=== PATIENT | female | born 1940 | race Caucasian/White ===

== ENCOUNTER → 2017-11-30 15:47 | Outpatient (CLI) | payer MEDICARE, SELFPAY ==
--- NOTE | 2017-11-30 15:52 | RAD_ITS ---
STUDY: X-RAY - RIGHT ELBOW REASON FOR EXAM: Female, 77 years old. Reevaluation of right elbow fracture. TECHNIQUE: 4 view(s) of the elbow. COMPARISON: Prior right elbow radiograph of October 23, 2014 FINDINGS: Hypertrophic degenerative changes of the humeral epicondyles unchanged from the prior exam. Hypertrophic degenerative changes of the ulna/mild degenerative changes of the ulnar ulnotrochlear articulation and radiocapitellar articulation. The appearance of the radial head and neck is unchanged. There is overhanging osteophyte at the junction of the radial head and neck appearing unchanged from the preceding exam. I am not convinced the patient has ever had a compression fracture or any fracture of the proximal radius. Negative for hemarthrosis. RAD/Elbow min 3 Views IMPRESSION: Degenerative changes of the elbow as described above. No certain demonstrated fracture of the radius. Overhanging osteophyte at the junction of the radial head and neck resembles a compression deformity. If there is an occult fracture of the area it apparently is healing with no change in alignment. Negative for joint effusion. Electronically Signed: Sho Coughlin MD at 22:46 EST , Service support ,
== END ==
PROVIDERS: Family Provider Family Medicine; PCP Family Medicine; Visit Provider Family Medicine
DX: S42.401A Unspecified fracture of lower end of right humerus, initial encounter for closed fracture (principal); X58.XXXA Exposure to other specified factors, initial encounter; Y93.9 Activity, unspecified; Y92.9 Unspecified place or not applicable; Y99.9 Unspecified external cause status
CPT/HCPCS: 73080

== ENCOUNTER → 2018-02-18 15:42 | Outpatient (CLI) | payer MEDICARE, BC, SELFPAY ==
[2018-02-18 16:26] LABS: Allen Test POS; Base Excess 1 mmol/L (-2 to +2); Bicarbonate 25.8 mmol/L (22-26); Blood Gas Specimen Type ART; O2 Delivery Device Room Air; PO2 61 mmHG (75-100); SITE R Radial; SO2 91 % (95-99); Time Given 1625; Total Carbon Dioxide 27 mmol/L; pCO2 41.8 mmHg (35-45)
== END ==
LOC: LAB 15:57 → PSN 15:58
PROVIDERS: Family Provider Family Medicine; PCP Family Medicine; Visit Provider Internal Medicine Pulmonary Disease
DX: J96.90 Respiratory failure, unspecified, unspecified whether with hypoxia or hypercapnia (principal)
CPT/HCPCS: 36600; 82803

== ENCOUNTER → 2018-04-18 11:28 | Outpatient (CLI) | payer MEDICARE, BC, SELFPAY ==
[2018-04-18 14:44] LABS: Anion Gap 6 (5-15); BUN 30 mg/dL (7-18); BUN/Creat Ratio 24.6 RATIO (10-20); Calcium,Total 9.2 mg/dL (8.5-10.1); Chloride 104 mmol/L (98-107); Creatinine, Serum 1.22 mg/dL (0.55-1.02); EST Glomerular Filtration Rate 45 mL/min (>60); Est Glom Filt Rate - Afr Amer 55 mL/min (>60); Glucose 96 mg/dL (74-106); Potassium 4.8 mmol/L (3.5-5.1); Sodium Level 139 mmol/L (136-145)
== END ==
PROVIDERS: Family Provider Family Medicine; PCP Family Medicine; Visit Provider Nurse Practitioner Adult Health
DX: I10 Essential (primary) hypertension (principal)
CPT/HCPCS: 36415; 80048

== ENCOUNTER → 2018-04-20 08:37 | Outpatient (CLI) | payer MEDICARE, BC, SELFPAY ==
--- NOTE | 2018-04-20 08:39 | BI_ITS ---
MAMMOGRAPHY - BILATERAL SCREENING REASON FOR EXAM: Female, 78 years old. Routine annual screening examination. PERTINENT HISTORY: Aunt with breast cancer. TECHNIQUE: Digital bilateral breast olimpia (3D mammographic acquisition) in the CC and MLO projections. 2-D mediolateral oblique (MLO) and craniocaudad (CC) views of both breasts were obtained. CAD: Full Field Digital Mammography with Computer Added Detection was performed. COMPARISON: Comparison is made with prior study dated March 05, 2017 and February 14, 2016. FINDINGS: Breast Composition: There are scattered areas of fibroglandular density. There are no dominant masses or suspicious calcifications. No other significant abnormalities are identified. There has been no significant change since the prior study. BI/SCREENING MAMM (CAD), BILAT IMPRESSION: Stable bilateral screening mammogram. Yearly follow-up mammogram recommended. (A) ASSESSMENT CATEGORY: BIRADS Category 1: Negative. A letter regarding these results will be sent to the patient by the facility within 30 days. Approximately 10% of breast cancers are not detected by mammography. A normal mammogram should not delay biopsy of a clinically suspicious abnormality. [id number] Electronically Signed: Dionisio Mora MD at 15:34 EDT Tel [phone], Service support ,
== END ==
PROVIDERS: Family Provider Family Medicine; PCP Family Medicine; Visit Provider Nurse Practitioner Adult Health
DX: Z12.31 Encounter for screening mammogram for malignant neoplasm of breast (principal)
CPT/HCPCS: 77063; 77067

== ENCOUNTER → 2018-07-03 09:59 | Outpatient (CLI) | payer MEDICARE, BC, SELFPAY ==
[2018-07-03 12:47] LABS: Anion Gap 7 (5-15); BUN 26 mg/dL (7-18); BUN/Creat Ratio 20.6 RATIO (10-20); Calcium,Total 9.2 mg/dL (8.5-10.1); Chloride 104 mmol/L (98-107); Cholesterol 146 mg/dL (200); Creatinine, Serum 1.26 mg/dL (0.55-1.02); EST Glomerular Filtration Rate 44 mL/min (>60); Est Glom Filt Rate - Afr Amer 53 mL/min (>60); Glucose 92 mg/dL (74-106); High Density Lipoprotein 50 mg/dL; Potassium 4.4 mmol/L (3.5-5.1); Sodium Level 137 mmol/L (136-145); Thyroid Stim Hormone (TSH) 4.34 uIU/mL (0.358-3.74); Triglycerides 112 mg/dL; Very Low Density Lipoprotein 22 mg/dL (5-40)
[2018-07-03 12:55] LABS: Vitamin D,25 Hydroxy 21.3 ng/mL (29.95-100.01)
== END ==
PROVIDERS: Family Provider Family Medicine; PCP Family Medicine; Visit Provider Family Medicine
DX: Z00.00 Encounter for general adult medical examination without abnormal findings (principal); E03.9 Hypothyroidism, unspecified; E55.9 Vitamin D deficiency, unspecified
CPT/HCPCS: 36415; 80048; 80061; 82306; 84443

== ENCOUNTER → 2018-07-24 10:48 | Outpatient (CLI) | payer MEDICARE, BC, SELFPAY ==
--- NOTE | 2018-07-24 10:53 | RAD_ITS ---
STUDY: X-RAY - LEFT WRIST REASON FOR EXAM: Female, 78 years old. Left wrist pain up and down elbow, anterior wrist bruising. TECHNIQUE: 3 view(s) of the wrist were obtained. COMPARISON: 10/26/2017. Fall/trauma . FINDINGS: Normal visualized distal radius and ulna. Normal radiocarpal articulation. Normal distal radioulnar articulation. Normal carpal bones. Normal carpal articulations. There is degenerative arthrosis of the carpometacarpal articulation of the thumb. Normal second through fifth carpometacarpal articulations. Normal visualized metacarpal bones. The soft tissue structures are unremarkable. RAD/Wrist min 3 Views IMPRESSION: Stable degenerative changes. There is no acute displaced fracture or dislocation. Electronically Signed: Latrice Petty MD at 7:26 EDT , Service support ,
== END ==
PROVIDERS: Family Provider Family Medicine; PCP Family Medicine; Visit Provider Family Medicine
DX: M79.602 Pain in left arm (principal)
CPT/HCPCS: 73110

== ENCOUNTER → 2018-09-11 14:35 | Outpatient (CLI) | payer MEDICARE, BC, SELFPAY ==
--- NOTE | 2018-09-11 14:39 | ECHOCS_ITS ---
Reason For Study: Dyspnea, Hypoxemia Procedure This was a 2D Doppler, Color Flow transthoracic echocardiogram. The study was technically difficult. Contrast injection was performed. Exam performed in department. Left Ventricle Normal LV size. Left ventricular systolic function is normal. The estimated ejection fraction is 65 %. Stage 1 diastolic dysfunction. No regional wall motion abnormalities noted. Right Ventricle Normal RV size. Normal systolic function. Atria Normal left atrium. Mitral Valve Normal mitral valve. Tricuspid Valve Normal tricuspid valve. Mild (1+) tricuspid valve insufficiency. Pulmonary artery systolic pressure is 38 mmHg. Aortic Valve The aortic valve is not well visualized. Pulmonic Valve The pulmonic valve is not well visualized. Great Vessels Normal aortic root. The pulmonary artery is normal size. Normal inferior vena cava. Pericardium/Pleural No pericardial effusion. Medication Definity0.5ml given slow IV push to enhance endocardial definition. MMode/2D Measurements & Calculations LVIDd: 5.1 cm IVSd: 1.1 cm Ao root diam: 3.4 cm LVIDs: 3.7 cm LVPWd: 0.96 cm RVDd: 3.4 cm FS: 28.3 % LAV(MOD-bp): 55.5 ml LVAd ap4: 27.9 cm2 SV(MOD-sp4): 61.7 ml LAV(MOD-bp) Indexed: 23.6 ml/m2 EDV(MOD-sp4): 88.4 ml LAV(MOD-sp2): 61.8 ml EDV(sp4-el): 90.2 ml LAV(MOD-sp4): 50.3 ml LVAs ap4: 13.3 cm2 ESV(MOD-sp4): 26.7 ml ESV(sp4-el): 26.6 ml EF(MOD-sp4): 69.8 % EF(sp4-el): 70.5 % SV(sp4-el): 63.6 ml LA A4 area: 19.6 cm2 LA dimension(2D): 4.2 cm RA A4 area: 14.7 cm2 Doppler Measurements & Calculations MV E max mayank: 91.0 cm/sec Lat Peak E' Mayank: 7.9 cm/sec Med Peak E' Mayank: 5.1 cm/sec MV A max mayank: 106.3 cm/sec E/E' lat: 11.5 E/E' med: 17.8 MV E/A: 0.86 Ao V2 max: 169.8 cm/sec LV V1 max: 113.6 cm/sec PA V2 max: 94.2 cm/sec Ao max P.5 mmHg LV V1 max P.2 mmHg Ao V2 mean: 121.0 cm/sec Ao mean P.4 mmHg Ao V2 VTI: 35.6 cm TR max mayank: 290.0 cm/sec TR max P.6 mmHg Interpretation Summary Normal LV size. Left ventricular systolic function is normal. The estimated ejection fraction is 65 %. Stage 1 diastolic dysfunction. Mild (1+) tricuspid valve insufficiency. Pulmonary artery systolic pressure is 38 mmHg. Contrast injection was performed. Ordering Physician: Filiberto Orellana Referring Physician: Jovani Mcconnell Performed By: Khadra Scales, NIYAH, RVT
--- NOTE | 2018-09-11 16:01 | RAD_ITS ---
STUDY: X-RAY CHEST REASON FOR EXAM: Female, 78 years old. Hypoxemia and dyspnea. TECHNIQUE: PA and lateral views of the chest. COMPARISON: October 31, 2017. FINDINGS: The lungs are expanded. There is mild elevation of the right hemidiaphragm. There is perihilar interstitial thickening present in both lungs. Curvilinear opacity is visible in the left lung, similar to previous study probably related to pulmonary fibrosis. There is no demonstrated pleural abnormality. There is borderline cardiomegaly. Normal mediastinum and antwon. There is prominence of the pulmonary hilar arteries without peripheral pulmonary vascular congestion. There is atherosclerotic calcification of the aortic arch with tortuosity. There is demineralization of the osseous structures. There is increased thoracic kyphosis. There is multilevel thoracic spondylosis. Normal visualized ribs, clavicles, and shoulders. There is no demonstrated abnormality of the visualized soft tissue structures of the upper abdomen. RAD/Chest PA and Lateral IMPRESSION: No radiographic evidence of acute cardiopulmonary disease. Electronically Signed: Radha Rivero MD at 7:35 EST , Service support ,
[2018-09-11 18:01] LABS: BNP,B-Type NATRIURETIC PEPTIDE 76.3 pg/mL (0-100)
== END ==
PROVIDERS: Family Provider Family Medicine; PCP Family Medicine; Referring Provider Internal Medicine Pulmonary Disease; Visit Provider Internal Medicine Pulmonary Disease
DX: R06.00 Dyspnea, unspecified (principal); R09.02 Hypoxemia
CPT/HCPCS: 36415; 71046; 83880; 93306; Q9957; A4216; C8929

== ENCOUNTER 2018-12-13 12:59 | Emergency (ER) | payer MEDICARE, BC, SELFPAY ==
[2018-12-13 13:07] VITALS: BP 136/62; PULSE 97; RESP 16; TEMP 36.7; O2SAT 94; BMI 55.6
--- NOTE | 2018-12-13 13:32 | RAD_ITS ---
STUDY: X-RAY - LEFT KNEE REASON FOR EXAM: Female, 78 years old. Bruising and swelling following a fall. TECHNIQUE: 4 view(s) of the knee. COMPARISON: None. FINDINGS: The patient is status post total knee replacement. There is good alignment. No acute fracture or dislocation is seen. Moderate joint effusion. Diffuse soft tissue swelling. RAD/Knee 4 or More Views IMPRESSION: Status post total knee replacement. There is good alignment. Soft tissue swelling. Joint effusion. Electronically Signed: Dionisio Mora MD at 14:05 EST , Service support ,
--- NOTE | 2018-12-13 14:49 | ED.VISSUMM ---
- ER Visit Summary Date of Service: 12/13/18 Chief Complaint: Left knee injury History of Present Illness: The patient is a 78 F who slipped and fell in the shower striking the medial portion of her left knee. She denies striking her head. Patient is currently on Coumadin. Her INR was checked on December 10 and was 2.3. She states she was able to ambulate but due to the size of the bruising and swelling felt she should be checked. Physical Examination: Vital signs unremarkable. Patient sitting upright in bed no acute distress. Head neck examination reveals no sign of trauma. Heart is regular rate and rhythm. Lungs sounds clear. Lower extremity examination reveals ecchymosis and tenderness along the medial portion of left knee. She has slow, purposeful range of motion. She has strong distal pulses. Test Results: Left knee x-rays reveal prior knee replacement. Normal alignment noted. Soft tissue swelling is appreciated with a slight joint effusion. Emergency Department Course and Treatment: Deyvi wrap was applied to the knee. Patient is able to get up and ambulate with walker. She wishes to just take Tylenol as needed for pain. Treatment Plan: [] Disposition: Discharge Impression: Left knee contusion This note was generated with [employer] dictation software. It may contain incorrect words, spelling, and punctuation that were not noted in review of the chart prior to signing ED Disposition - Plan for ED Patient: Disposition: Home or Assisted Living Instructions: ED Contusion Lower Ext, ED Mechanical Fall Referrals: Jovani Mcconnell MD [Primary Care Provider] - 5-7 Days
--- NOTE | 2018-12-13 14:49 | ED.DEP ---
ED Disposition - Plan for ED Patient: Disposition: Home or Assisted Living Instructions: ED Mechanical Fall, ED Contusion Lower Ext Referrals: Jovani Mcconnell MD [Primary Care Provider] - 5-7 Days
[2018-12-13 14:54] VITALS: BP 135/84; PULSE 73; RESP 16; O2SAT 93
== END 2018-12-13 15:29 | disposition home or self-care (01) ==
PROVIDERS: Emergency Provider Emergency Medicine; Family Provider Family Medicine; PCP Family Medicine
DX: S80.02XA Contusion of left knee, initial encounter (principal); W18.2XXA Fall in (into) shower or empty bathtub, initial encounter; Y93.E1 Activity, personal bathing and showering; Y92.9 Unspecified place or not applicable; Y99.9 Unspecified external cause status; E11.9 Type 2 diabetes mellitus without complications; I10 Essential (primary) hypertension; F41.9 Anxiety disorder, unspecified; Z79.01 Long term (current) use of anticoagulants; Z79.899 Other long term (current) drug therapy; Z86.718 Personal history of other venous thrombosis and embolism; Z86.711 Personal history of pulmonary embolism; Z87.891 Personal history of nicotine dependence
CPT/HCPCS: 73564; 99284

== ENCOUNTER → 2018-12-26 14:54 | Outpatient (CLI) | payer MEDICARE, BC, SELFPAY ==
[2018-12-13 13:07] VITALS: BMI 55.6
[2018-12-26 16:09] LABS: Anion Gap 8 (5-15); BUN 35 mg/dL (7-18); BUN/Creat Ratio 26.7 RATIO (10-20); Calcium,Total 9.6 mg/dL (8.5-10.1); Chloride 106 mmol/L (98-107); Cholesterol 131 mg/dL (200); Creatinine, Serum 1.31 mg/dL (0.55-1.02); EST Glomerular Filtration Rate 42 mL/min (>60); Est Glom Filt Rate - Afr Amer 50 mL/min (>60); Free T3 2.6 pg/mL (2.18-3.98); Glucose 88 mg/dL (74-106); High Density Lipoprotein 58 mg/dL; Potassium 4.6 mmol/L (3.5-5.1); Sodium Level 140 mmol/L (136-145); Thyroid Stim Hormone (TSH) 5.55 uIU/mL (0.358-3.74); Triglycerides 82 mg/dL; Very Low Density Lipoprotein 16 mg/dL (5-40)
== END ==
PROVIDERS: Family Provider Family Medicine; PCP Family Medicine; Referring Provider Family Medicine; Visit Provider Family Medicine
DX: I10 Essential (primary) hypertension (principal); E03.9 Hypothyroidism, unspecified; E55.9 Vitamin D deficiency, unspecified
CPT/HCPCS: 36415; 80048; 80061; 82306; 84436; 84443; 84481

== ENCOUNTER → 2019-04-07 09:38 | Outpatient (CLI) | payer MEDICARE, BC, SELFPAY ==
[2019-03-20 13:41] VITALS: BMI 53.4
[2019-04-07 10:04] LABS: Absolute Lymphocyte Count 1.32 X10^3/ul (0.83-4.51); Absolute Neutrophil Count 5.8 X10^3/uL (2.0-7.7); Basophil# 0.04 X10^3/uL; Basophil% 0.5 % (0-1); Eosinophil# 0.19 X10^3/uL; Eosinophils% 2.4 % (0-5); Hematocrit 43.6 % (37-47); Hemoglobin 13.5 g/dl (12.0-15.0); Lymphocyte # 1.32 X10^3/ul (4.0); Lymphocyte % 16.4 % (19-41); Mean Corpuscular Hgb 32.1 pg (27.0-32.0); Mean Corpuscular Volume 103.6 fL (81-99); Mean Platelet Vol. 9.1 fl (6.2-12.0); Monocyte# 0.65 X10^3/uL; Monocyte% 8.1 % (0-10); Neutrophil # 5.83 X10^3/uL (2.7-7.7); Neutrophil % 72.5 % (47-70); Platelet Count 164 K/mm3 (150-450); RBC Distribution Width CV 13.9 % (11.6-14.6); RBC Distribution Width SD 52.3 fl (35.1-43.9); Red Blood Count 4.21 M/mm3 (4.2-5.4)
[2019-04-07 10:08] LABS: POSITIVE COUNT NO; POSITIVE DIFFERENTIAL NO; POSITIVE MORPHOLOGY NO
[2019-04-07 10:10] LABS: International Normalized Ratio 2.7
[2019-04-07 10:11] LABS: Partial Thromboplast Time 34.8 Seconds (24.1-36.2)
[2019-04-07 10:24] LABS: Anion Gap 5 (5-15); BUN 56 mg/dL (7-18); BUN/Creat Ratio 30.1 RATIO (10-20); Calcium,Total 9.2 mg/dL (8.5-10.1); Chloride 101 mmol/L (98-107); Creatinine, Serum 1.86 mg/dL (0.55-1.02); EST Glomerular Filtration Rate 28 mL/min (>60); Est Glom Filt Rate - Afr Amer 34 mL/min (>60); Glucose 100 mg/dL (74-106); Sodium Level 136 mmol/L (136-145)
== END ==
PROVIDERS: Family Provider Family Medicine; PCP Family Medicine; Referring Provider Internal Medicine Cardiovascular Disease; Visit Provider Internal Medicine Cardiovascular Disease
DX: I10 Essential (primary) hypertension (principal); E78.5 Hyperlipidemia, unspecified; I26.99 Other pulmonary embolism without acute cor pulmonale; I27.21 Secondary pulmonary arterial hypertension
CPT/HCPCS: 36415; 80048; 85025; 85610; 85730

== ENCOUNTER 2019-04-11 07:47 | Day surgery (SDC) | payer MEDICARE, BC, SELFPAY ==
[2019-03-20 13:41] VITALS: BMI 53.4
--- NOTE | 2019-04-07 10:10 | RAD_ITS ---
STUDY: X-RAY CHEST REASON FOR EXAM: Female, 79 years old. Shortness of breath TECHNIQUE: PA and lateral views of the chest. COMPARISON: 09/11/2018 FINDINGS: The lungs are clear and expanded. There is no demonstrated pleural abnormality. Normal size heart. Normal mediastinum and antwon. Normal visualized pulmonary arteries. Normal visualized aortic arch and descending thoracic aorta. There are diffuse degenerative changes of the visualized thoracic spine. There is degenerative osteoarthritis of the bilateral shoulders. There is no demonstrated abnormality of the visualized soft tissue structures of the upper abdomen. RAD/Chest PA and Lateral IMPRESSION: No acute cardiopulmonary disease Electronically Signed: Tan Castillo DO at 13:36 EDT Tel , Service support ,
[2019-04-09 08:49] VITALS: BMI 53.4
[2019-04-11 08:16] LABS: Prothrombin Time Fingerstick 18.4 SEC (11.9-14.4)
--- NOTE | 2019-04-11 10:50 | CL.D_ITS ---
Patient Name: OPAL SHIPLEY Study Date: 04/11/2019 Performing: Maynor Roldan MD Ht: 62.99 inches 160 cm : 1940 Wt: 302.03 lbs 137 kg Age: 79 Gender: female BSA: 2.3 PROCEDURE(S) PERFORMED UL69-HBG ONLY [id number] GUIDED ACCESS CLINICAL PROFILE AND INDICATIONS Mild pulmonary hypertension Indications: Other, Other Heart Failure: None CONCLUSIONS Right heart pressures - mildly to moderately elevated RECOMMENDATIONS Medical therapy DESCRIPTION OF PROCEDURE The patient arrived to the procedure lab. The risks and benefits of the procedure as well as a full d escription of our services here and current unavailability of surgical backup were fully explained to the patient and/or their significant other prior to the catheterization. The Timeout was completed, verifying the correct patient and procedure. The patient's procedural site was prepped and draped in the usual fashion. Local anesthetic was given subcutaneously to right groin region with Lidocaine 2%. Local anesthetic was given subcutaneously to right jugular region with Lidocaine 2%. Using a modifie d Seldinger technique, Venous access was obtained via the right femoral vein, a 7Fr sheath was inser mica.. Venous access was obtained via the right jugular vein, a 4Fr sheath was inserted A 7Fr thermal dilution catheter was inserted and right heart pressures were recorded, it was then advanced to [place] po sition for cardiac outputs. O2 saturations were then obtained. The Thermal dilution catheter was then removed.The venous sheath was then pulled and manual compression applied until hemo stasis achieved (D/T IVC filter). The venous sheath was then pulled and manual compression applied un til hemostasis achieved CORONARY ANGIOGRAPHY RIGHT HEART ASSESSMENT PW: 10 PA: 42/12 28 RV: 40/3 9 RA: 14/7 5 Right Heart pressures - elevated COMPLICATIONS No Complications PROCEDURE MEDICATIONS Versed 1 mg IV Versed 1 mg IV Fentanyl 25 mcg IV SUMMARY OF HEMODYNAMIC DATA Time AIR REST ECG 09:00:23 PW 1615 (10) PV 10:34:46 PA 42/12 (28) PA 10:35:00 RV 40/3, 9 10:36:46 RV 43/1, 8 10:37:10 RA 14/7 (5) SV 10:38:25 RA 10/7 (5) 10:38:42 Label % O2 Pres/Loc Time AIR REST RV 69 PA 10:43:29 RA 70 10:46:33 PA 73 10:46:43 Signed By Maynor Roldan MD On 04/11/2019 10:49:11 AM Maynor Roldan MD
[2019-04-11 15:46] LABS: Blood Gas Specimen Type VEN; VBG BASE EXCESS -2 mmol/L (-1.0-3.5); VBG Bicarbonate 25 mmol/L (22-26); VBG Oxygen Content 26 mmol/L (23-33); VBG PO2 40 mmHg (25-40); VBG SO2 69 % (50-70); VBG pCO2 48.7 mmHg (41-51); VBG pH 7.31 (7.32-7.42)
[2019-04-11 15:46] LABS: Blood Gas Specimen Type VEN; VBG BASE EXCESS 0 mmol/L (-1.0-3.5); VBG Bicarbonate 26 mmol/L (22-26); VBG Oxygen Content 27 mmol/L (23-33); VBG PO2 42 mmHg (25-40); VBG SO2 73 % (50-70); VBG pCO2 48.5 mmHg (41-51); VBG pH 7.33 (7.32-7.42)
[2019-04-11 15:46] LABS: Blood Gas Specimen Type VEN; VBG BASE EXCESS -2 mmol/L (-1.0-3.5); VBG Bicarbonate 24 mmol/L (22-26); VBG Oxygen Content 26 mmol/L (23-33); VBG PO2 40 mmHg (25-40); VBG SO2 70 % (50-70); VBG pCO2 47.3 mmHg (41-51); VBG pH 7.32 (7.32-7.42)
== END 2019-04-11 13:30 | disposition home or self-care (01) ==
LOC: CLSP 07:48
PROVIDERS: Family Provider Family Medicine; PCP Family Medicine; Referring Provider Internal Medicine Cardiovascular Disease; Visit Provider Internal Medicine Cardiovascular Disease
DX: I27.20 Pulmonary hypertension, unspecified (principal); I26.99 Other pulmonary embolism without acute cor pulmonale; E11.22 Type 2 diabetes mellitus with diabetic chronic kidney disease; I12.9 Hypertensive chronic kidney disease with stage 1 through stage 4 chronic kidney disease, or unspecified chronic kidney disease; N18.9 Chronic kidney disease, unspecified; J44.9 Chronic obstructive pulmonary disease, unspecified; E78.5 Hyperlipidemia, unspecified; G47.33 Obstructive sleep apnea (adult) (pediatric); E66.01 Morbid (severe) obesity due to excess calories; Z79.01 Long term (current) use of anticoagulants; Z88.1 Allergy status to other antibiotic agents; Z88.0 Allergy status to penicillin; Z91.09 Other allergy status, other than to drugs and biological substances; Z86.718 Personal history of other venous thrombosis and embolism; Z87.891 Personal history of nicotine dependence
CPT/HCPCS: 36416; 71046; 76937; 82803; 85610; 93451; 99152; 99153; J7040; C1751; C1769; C1894

== ENCOUNTER → 2019-05-07 15:10 | Outpatient (CLI) | payer MEDICARE, BC, SELFPAY ==
[2019-04-09 08:49] VITALS: BMI 53.4
[2019-05-07 17:45] LABS: Absolute Lymphocyte Count 1.22 X10^3/ul (0.83-4.51); Absolute Neutrophil Count 6.5 X10^3/uL (2.0-7.7); Basophil# 0.04 X10^3/uL; Basophil% 0.5 % (0-1); Eosinophil# 0.07 X10^3/uL; Eosinophils% 0.8 % (0-5); Hematocrit 39.8 % (37-47); Hemoglobin 12.3 g/dl (12.0-15.0); Lymphocyte # 1.22 X10^3/ul (4.0); Lymphocyte % 14.6 % (19-41); Mean Corp Hgb Conc 30.9 g/gl (32-36); Mean Corpuscular Hgb 32.3 pg (27.0-32.0); Mean Corpuscular Volume 104.5 fL (81-99); Mean Platelet Vol. 9.6 fl (6.2-12.0); Monocyte# 0.52 X10^3/uL; Monocyte% 6.2 % (0-10); Neutrophil # 6.47 X10^3/uL (2.7-7.7); Neutrophil % 77.8 % (47-70); Platelet Count 162 K/mm3 (150-450); RBC Distribution Width SD 53.6 fl (35.1-43.9); Red Blood Count 3.81 M/mm3 (4.2-5.4); White Blood Count 8.3 K/mm3 (4.4-11.0)
[2019-05-07 18:04] LABS: ALB/GLOB Ratio 1.2 RATIO (0.9-2.4); AST(SGOT) 20 U/L (15-37); Alanine Aminotransfer ALT/SGPT 23 U/L (13-56); Albumin, Serum 3.8 g/dL (3.2-5.0); Alkaline Phosphatase 78 U/L (45-117); Anion Gap 10 (5-15); BUN 54 mg/dL (7-18); BUN/Creat Ratio 26.5 RATIO (10-20); Chloride 105 mmol/L (98-107); Creatinine, Serum 2.04 mg/dL (0.55-1.02); EST Glomerular Filtration Rate 25 mL/min (>60); Est Glom Filt Rate - Afr Amer 30 mL/min (>60); Globulin 3.1 g/dL (2.2-4.2); Glucose 95 mg/dL (74-106); Protein, Total 6.9 g/dL (6.4-8.2); Sodium Level 142 mmol/L (136-145); Thyroid Stim Hormone (TSH) 4.24 uIU/mL (0.358-3.74)
[2019-05-07 18:12] LABS: POSITIVE COUNT NO; POSITIVE DIFFERENTIAL NO; POSITIVE MORPHOLOGY NO
== END ==
PROVIDERS: Family Provider Family Medicine; PCP Family Medicine; Referring Provider Family Medicine; Visit Provider Family Medicine
DX: I27.82 Chronic pulmonary embolism (principal); E03.9 Hypothyroidism, unspecified; F32.9 Major depressive disorder, single episode, unspecified
CPT/HCPCS: 36415; 80053; 84436; 84443; 85025

== ENCOUNTER → 2019-09-19 12:00 | Outpatient (CLI) | payer MEDICARE, BC, SELFPAY ==
[2019-04-09 08:49] VITALS: BMI 53.4
[2019-09-19 14:38] LABS: ALB/GLOB Ratio 1.1 RATIO (0.9-2.4); AST(SGOT) 21 U/L (15-37); Alanine Aminotransfer ALT/SGPT 25 U/L (13-56); Albumin, Serum 3.8 g/dL (3.2-5.0); Alkaline Phosphatase 74 U/L (45-117); Anion Gap 6 (5-15); BUN 43 mg/dL (7-18); BUN/Creat Ratio 23.2 RATIO (10-20); Calcium,Total 9.9 mg/dL (8.5-10.1); Chloride 107 mmol/L (98-107); Creatinine, Serum 1.85 mg/dL (0.55-1.02); EST Glomerular Filtration Rate 28 mL/min (>60); Est Glom Filt Rate - Afr Amer 34 mL/min (>60); Globulin 3.6 g/dL (2.2-4.2); Glucose 94 mg/dL (74-106); Protein, Total 7.4 g/dL (6.4-8.2); Sodium Level 140 mmol/L (136-145); Thyroid Stim Hormone (TSH) 2.82 uIU/mL (0.358-3.74)
== END ==
PROVIDERS: Family Provider Family Medicine; PCP Family Medicine; Referring Provider Family Medicine; Visit Provider Family Medicine
DX: N28.9 Disorder of kidney and ureter, unspecified (principal); E03.9 Hypothyroidism, unspecified
CPT/HCPCS: 36415; 80053; 84443

== ENCOUNTER → 2019-11-06 14:40 | Outpatient (CLI) | payer MEDICARE, BC, SELFPAY ==
[2019-11-06 14:27] VITALS: BMI 51.2
--- NOTE | 2019-11-06 14:41 | RAD_ITS ---
STUDY: X-RAY - LEFT WRIST REASON FOR EXAM: Pain. TECHNIQUE: 3 view(s) of the wrist were obtained. COMPARISON: Radiographs 07/24/2018. FINDINGS: Normal visualized distal radius and ulna. There is a small osteophyte at the radial styloid process without joint space narrowing of the radiocarpal articulation. Normal distal radioulnar articulation. Normal carpal bones. There is [id number] joint space narrowing of the triscaphe articulation. There are marginal osteophytes with severe joint space narrowing of the carpometacarpal articulation of the thumb. Normal second through fifth carpometacarpal articulations. There is an os styloideum at the third metacarpal base. There is vascular calcification. 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 Electronically Signed: Marquez Russ MD at 15:03 EST Tel , Service support ,
== END ==
PROVIDERS: Family Provider Family Medicine; PCP Family Medicine; Referring Provider Orthopaedic Surgery; Visit Provider Orthopaedic Surgery
DX: M25.532 Pain in left wrist (principal)
CPT/HCPCS: 73110

== ENCOUNTER → 2019-12-03 14:16 | Outpatient (CLI) | payer MEDICARE, BC, SELFPAY ==
[2019-11-06 14:27] VITALS: BMI 51.2
--- NOTE | 2019-12-03 15:31 | NEURO ---
NCS and/or EMG Patient Report Ordering Doctor: Jovani Mcconnell DATE OF SERVICE: 12/03/19 Jennifer Baker is a 79-year-old female presents for electrodiagnostic testing of the left upper limb. She reports numbness and tingling in the left hand, worse over the past month. Electrodiagnostic findings: Left median motor nerve demonstrates prolonged distal latency with reduced amplitude and reduced conduction velocity. Normal left ulnar motor response, including conduction across the elbow. Prolonged left median F wave. Absent left median sensory latency at the wrist. Normal left ulnar and radial sensory responses. On needle EMG, all muscles tested in the left upper limb as well as left cervical paraspinal showed no evidence of denervation with normal motor unit action potentials. Electrodiagnostic impression: This is an abnormal study in the left upper limb. 1. Electrodiagnostic findings consistent with left median mononeuropathy, consistent with an advanced left carpal tunnel syndrome. 2. No electrodiagnostic evidence noted for cervical radiculopathy. If there are any further questions, please do not hesitate to contact me.
== END ==
PROVIDERS: Family Provider Family Medicine; PCP Family Medicine; Referring Provider Orthopaedic Surgery; Visit Provider Orthopaedic Surgery
DX: G56.02 Carpal tunnel syndrome, left upper limb (principal); G56.22 Lesion of ulnar nerve, left upper limb
CPT/HCPCS: 95886; 95909

== ENCOUNTER 2020-01-09 08:54 | Day surgery (SDC) | payer MEDICARE, BC, SELFPAY ==
[2019-12-30 10:38] VITALS: BMI 51.2
--- NOTE | 2019-12-30 11:13 | HP_ITS ---
I have re-examined the patient. There are no clinical changes since date of exam. Intake Intake Visit Reasons: left wrist Is patient in pain?: Yes Allergies Penicillins Allergy (Intermediate, Verified 12/30/19 10:34) Diarrhea erythromycin base Allergy (Mild, Verified 12/30/19 10:34) unknown aspirin [From Robaxisal] Allergy (Verified 12/30/19 10:34) Unknown digoxin [From Lanoxin] Allergy (Verified 12/30/19 10:34) Unknown etodolac [From Lodine] Allergy (Verified 12/30/19 10:34) Unknown ibuprofen [From Motrin] Allergy (Verified 12/30/19 10:34) Unknown meclizine HCl [From Antivert] Allergy (Verified 12/30/19 10:34) Unknown meclofenamate sodium [From Meclomen] Allergy (Verified 12/30/19 10:34) Unknown methocarbamol [From Robaxisal] Allergy (Verified 12/30/19 10:34) Unknown nabumetone [From Relafen] Allergy (Verified 12/30/19 10:34) Unknown naproxen Allergy (Verified 12/30/19 10:34) Unknown sulfamethoxazole [From Bactrim] Allergy (Verified 12/30/19 10:34) Unknown trimethoprim [From Bactrim] Allergy (Verified 12/30/19 10:34) Unknown [facility] Social History (Updated 12/30/19 @ 11:[address] Jenny Nugent DO) Smoking Status: Former smoker how long ago did patient quit smokin years ago alcohol intake: never caffeine: Yes Type: coffee Number of servings: 1 HPI left wrist: Surgical H&P: Yes Details: Parts of this documentation were recorded by a scribe, this documentation accurately reflects the service provided and the decisions made by me, Dr. Jenny Nugent DO 12/30/19 1027. OPAL SHIPLEY is a 79 year old F here today for a followup after her left upper extremity EMG. Patient states that her numbness has improved since her EMG. She states that she is dropping light items. She feels a sharp shock when she pushes her index finger and thumb together. Patient denies any injections. Her EMG is here for review. ROS Musc Reports muscle weakness, Reports numbness, Reports tingling Skin/Breast Reports system reviewed and no additional complaints, except as docu Neuro Yes system reviewed and no additional complaints, except as docu, Yes numbness, Yes tingling Ortho Exam Left Wrist/Hand Left Wrist: Yes ROM-Flexion 0-80, Yes ROM-Pronation 0-80, Yes ROM-Supination 0- 90, Yes Durken's Test, Yes CMC Grind, Yes TTP CMC and Yes Thenar Atrophy Motor: EPL: 5, FDP-2: 4, 1st Dorsal Interosseous: 5, APB: 4 Sensation: Radial: I, Ulnar: D, Median: D Left Elbow Test: Yes Thenar Atrophy, No Ulnar Nerve Subluxation Sensation: Radial: I, Ulnar: I, Median: I Motor: Elbow Extension: 5, Elbow Flexion: 5, EPL: 5, FDP-2: 5, 1st Dorsal Interosseous: 5 No rales rhonchi wheezing, no abdominal pain, no audible bruits Assessment & Plan Problems 1. Carpal tunnel syndrome, left G56.02 Plan Reviewed EMG and educated that she has severe carpal tunnel syndrome of her left wrist. Educated that her tx options are do nothing or injections or carpal tunnel release. Reviewed the pre-operative plans with the patient. Risks and benefits of the procedure were fully explained, including but not limited to infection, neurovascular injury, continued pain, arthritis, stiffness, need for further surgery, re-injury, DVT, PE, general risks of anesthesia, and loss of limb or life. The patient understands all the risks and does wish to proceed with written consent. Follow up 2 weeks post op or sooner if pain, swelling, numbness or associated symptoms, or concerns develop. All questions answered. Patient in agreement of plan. Coding Level of Care Code Off vis,est,level 4 Diagnoses Carpal tunnel syndrome, left G56.02 12/30/19 1113 <Electronically signed by Jenny mcmahan DO> Date _ Jenny Nugent DO
[2020-01-09] VITALS (7 sets, daily range): BP systolic 87–112; BP diastolic 43–51; PULSE 68–73; RESP 16–18; TEMP 36.6–36.9; O2SAT 92–98; BMI 50.0
[2020-01-09 09:31] LABS: Prothrombin Time Fingerstick 20.3 SEC (11.9-14.4)
[2020-01-09 10:32] LABS: International Normalized Ratio 1.2; Prothrombin Time (Protime)PT. 15.4 SECONDS (11.7-14.9)
--- NOTE | 2020-01-09 10:57 | DCINST_ITS ---
Discharge Diet: No Restrictions - Leave dressing on until seen in postop clinic in 10-14 days for suture removal, keep dressing clean, dry, intact; change dressing if gets wet/dirty, call with concerns Discharge Activity: May Not Drive May shower in (days): 1 Ice area for (Minutes): 20 - Every hour while awake. Weight Bearing Status: Weight bearing as tolerated Keep extremity elevated above heart level: Operative Extremity Call your doctor if your incision/area has: Continuous Slow Oozing, Sudden Increased Bleeding, Increased Pain/ Swelling, Increased Redness, Foul Smelling Discharge Call your doctor if you observe: Fever of 101 or Higher, Coldness, Increased Pain, Numbness or Tingling, Change in Color, Calf discomfort Allergies/Adverse Reactions: Allergies Penicillins Allergy (Intermediate, Verified 01/09/20:) Diarrhea erythromycin base Allergy (Mild, Verified 01/09/20:) unknown aspirin [From Robaxisal] Allergy (Verified 01/09/20:) Unknown digoxin [From Lanoxin] Allergy (Verified 01/09/20:) Unknown etodolac [From Lodine] Allergy (Verified 01/09/20:) Unknown ibuprofen [From Motrin] Allergy (Verified 01/09/20:) Unknown meclizine HCl [From Antivert] Allergy (Verified 01/09/20:) Unknown meclofenamate sodium [From Meclomen] Allergy (Verified 01/09/20:) Unknown methocarbamol [From Robaxisal] Allergy (Verified 01/09/20:23) Unknown nabumetone [From Relafen] Allergy (Verified 01/09/20:) Unknown PT STATES IT'S BEEN SO LONG I CAN'T REMEMBER WHAT THEY DO TO ME naproxen Allergy (Verified 01/09/20:23) Unknown sulfamethoxazole [From Bactrim] Allergy (Verified 01/09/20:) Unknown trimethoprim [From Bactrim] Allergy (Verified 01/09/20:) Unknown Medications to take at Discharge Pramipexole Di-HCl [Mirapex] 1.5 mg PO QHS 05/13/15 Rosuvastatin Calcium [Crestor] 10 mg PO QHS 05/13/15 Calcium Carbonate/Vitamin D3 [Calcium 500+D Tablet Chew] 1 tab PO DAILY 10/23/15 Pyridoxine HCl [Vitamin B6] 100 mg PO DAILY 10/23/15 Sulfasalazine [Azulfidine] 1,000 mg PO BID 10/23/15 Thiamine Hydrochloride [Vitamin B1] 100 mg PO DAILY 10/23/15 Amitriptyline HCl 100 mg PO QHS 01/30/17 Glucosamine/MSM/Chondroitin A [Glucosamine Chondroit MSM Tab] 1 ea PO BID 01/30/17 Meloxicam [Mobic] 15 mg PO DAILY 01/30/17 Mometasone/Formoterol [Dulera 100 Mcg-5 Mcg Inhaler] 1 puff IH BID 01/30/17 Nystatin Powder [Mycostatin Powder] 1 applic TOPICAL TID PRN 10/16/17 Oxybutynin Chloride [Ditropan Xl] 10 mg PO DAILY 10/16/17 Cholecalciferol (Vitamin D3) [Vitamin D3] 1,000 unit PO DAILY 10/23/17 Acetaminophen [Tylenol] 1,000 mg PO Q8H PRN tab 11/23/17 Sodium Chloride 0.65% [[place] Nasal [place]] 2 spray NASAL TID PRN PRN spray.btl 11/23/17 warfarin 4 mg tablet 5 mg PO DAILY@1700 tab 12/20/17 metoprolol succinate 25 mg tablet,extended release 24 hr 25 mg PO DAILY 90 Days #90 06/21/18 duloxetine 20 mg capsule,delayed release 20 mg PO DAILY cap 09/22/19 folic acid 400 mcg tablet 800 mcg PO DAILY 09/22/19 levothyroxine 75 mcg tablet 175 mcg PO DAILY@0600 tab 09/22/19 Acetaminophen [Tylenol Arthritis] 650 mg PO DAILY 01/05/20 Furosemide 40 mg PO DAILY 01/05/20 Loratadine [Claritin] 10 mg PO DAILY 01/05/20 Valsartan/Hydrochlorothiazide [Valsartan-Hctz 80-12.5 mg Tab] 1 ea PO DAILY 01/05/20 Primary Care Physician: Jovani Mcconnell MD [Primary Care Provider] - Test Results: Test results from this visit will be discussed in further detail at your follow- up appointment, if applicable. Please Follow Up With: Jenny Nugent, DO - [phone]
[2020-01-09] MEDS: Lactated Ringers 1,000 ML 100 ML IV (10:58)
--- NOTE | 2020-01-09 10:58 | PCM.OPRPT ---
Report of Operation Date of Procedure: 01/09/20 Pre-Operative Diagnosis: left carpal tunnel syndrome Post-Operative Diagnosis: Same Surgery/Procedure Performed:: Left carpal tunnel release Type of Anesthesia:: Ileana Nur, Local Anesthesiologist: Danyel Nova Estimated Blood Loss (mL): none Fluids Replaced: 500cc lr Description of Procedure: Preoperative note Patient is a { 79 yo } patient with nerve conduction study confirming carpal tunnel syndrome. Patient failed conservative treatment for her carpal tunnel elected proceed with left carpal tunnel release. Risks benefits and alternatives surgery discussed with patient. Risks including but not limited to blood loss, blood clot, infection, neurovascular injury, failure procedure, loss of life and loss of limb. Patient is aware like proceed with left carpal tunnel release. Operative note Patient seen and examined preoperative holding area. Left hand was marked. History and physical and consent reviewed. Patient was brought to the operating room placed supine on the operating table. Sign in, anesthesia, antibiotics were administered. Left upper extremity was prepped and draped after [place] block was initiated. All bony prominences well-padded SCDs placed on bilateral lower extremities. We marked out our incisions for our carpal tunnel release at the intersection of Gabriella's line in the fourth ray flexed. We extended about a centimeter and a half. Timeout was performed. We then checked ensure that the Ileana block was working with pickups which it was not. We then performed a local block with 10 cc of 1/2% bupivacaine. We then used a 15 blade to make a skin incision. We then dissected down tenotomy syllable of the transverse carpal ligament. We then used a new 15 blade cut through the transverse carpal ligament down to the level of the median nerve. We then further released the median nerve the combination of the 15 blade and tenotomies. The nerve was grayish in color and adherent to the transverse carpal ligament volarly. We released the transverse carpal ligament distally to the fat pad and then proximally under standard technique. We then palpated to ensure that we released all of the transverse carpal ligament which we did. We irrigated the incision with copious amounts of sterile saline. All bleeders were coagulated. The incision was closed with interrupted 4-0 nylon stitches. Tourniquet was deflated for total working time of 14 minutes. Patient tolerated procedure well there were no complications. Patient transferred to recovery room in stable condition. Postoperative note Postop neuro intact Leave dressing clean dry and intact Follow-up in 2 weeks Call with concerns This note was generated with [employer] dictation software. It may contain incorrect words, spelling, and punctuation that were not noted in checking the note before signing.
[2020-01-09] MEDS: Bupivacaine 0.5% PF 10 ML VIAL (11:39)
[2020-01-09] MEDS: Mupirocin Ointment 22gm Tube 1 APPLIC (12:02)
== END 2020-01-09 13:55 | disposition home or self-care (01) ==
LOC: SDC 08:55 → AC 08:56
PROVIDERS: Anesthesiology; PCP Family Medicine; Referring Provider Orthopaedic Surgery; Visit Provider Orthopaedic Surgery
PROC: (CPT 64721; principal; 2020-01-09 10:25)
DX: G56.02 Carpal tunnel syndrome, left upper limb (principal); I12.9 Hypertensive chronic kidney disease with stage 1 through stage 4 chronic kidney disease, or unspecified chronic kidney disease; E11.22 Type 2 diabetes mellitus with diabetic chronic kidney disease; N18.9 Chronic kidney disease, unspecified; E03.9 Hypothyroidism, unspecified; G25.81 Restless legs syndrome; G47.30 Sleep apnea, unspecified; F32.9 Major depressive disorder, single episode, unspecified; F41.9 Anxiety disorder, unspecified; Z78.0 Asymptomatic menopausal state; E66.01 Morbid (severe) obesity due to excess calories; Z68.43 Body mass index [BMI] 50.0-59.9, adult; Z79.01 Long term (current) use of anticoagulants; Z79.899 Other long term (current) drug therapy; Z88.6 Allergy status to analgesic agent; Z88.2 Allergy status to sulfonamides; Z88.1 Allergy status to other antibiotic agents; Z88.0 Allergy status to penicillin; Z87.891 Personal history of nicotine dependence; Z86.718 Personal history of other venous thrombosis and embolism; Z86.711 Personal history of pulmonary embolism; Z85.828 Personal history of other malignant neoplasm of skin
CPT/HCPCS: 01810; 64721; 36416; 85610; J7120; J2405

== ENCOUNTER 2020-01-12 14:36 | Inpatient (IN) | payer MEDICARE, BC, SELFPAY ==
[2020-01-09 09:30] VITALS: BMI 50.0
[2020-01-12] VITALS (24 sets, daily range): BP systolic 63–108; BP diastolic 14–83; PULSE 57–77; RESP 12–22; TEMP 36.6–36.9; O2SAT 88–98; BMI 51.5; BMI 51.6; BMI 51.0
--- NOTE | 2020-01-12 15:05 | EKG12_ITS ---
Test Reason : Blood Pressure : / mmHG Vent. Rate : 066 BPM Atrial Rate : 066 BPM P-R Int : 176 ms QRS Dur : 080 ms QT Int : 368 ms P-R-T Axes : 037 005 019 degrees QTc Int : 385 ms Normal sinus rhythm Low voltage QRS Borderline ECG Confirmed by KENRICK PALENCIA, ADRIAN ([id number]), sound editor VALENTE MACKEY ([id number]) on 01/13/2020 1:42:58 PM Referred By: BAY Confirmed By:ADRIAN CHOUDHARY MD
--- NOTE | 2020-01-12 15:06 | ED.DCSUM_ITS ---
History of Present Illness Chief Complaint: Hypotension Informant: Patient Onset: Today Narrative: EMS was called for near fall and lift assist. Patient had carpal tunnel surgery on January 08. She states she was sitting on her bed trying to get ready to go to appointment. She started to slide off the edge of the bed. Her granddaughter was home but was not able to help her. Patient's daughter then came back between the 2 of them they were not able to get her back up onto the bed. EMS states her blood pressure was 78 over palp and patient was dizzy. Patient denies chest pain or shortness of breath. She thinks her blood pressure medications were last changed sometime last year. She does not check her blood pressure at a regular basis. She is on Coumadin. She states she stopped the Coumadin for couple days for her recent surgery but restarted that evening. 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 Past Medical History - Allergies and Home Meds Allergies/Adverse Reactions: Allergies Penicillins Allergy (Intermediate, Verified 01/12/20 14:45) Diarrhea erythromycin base Allergy (Mild, Verified 01/12/20 14:45) unknown aspirin [From Robaxisal] Allergy (Verified 01/12/20 14:45) Unknown digoxin [From Lanoxin] Allergy (Verified 01/12/20 14:45) Unknown etodolac [From Lodine] Allergy (Verified 01/12/20 14:45) Unknown ibuprofen [From Motrin] Allergy (Verified 01/12/20 14:45) Unknown meclizine HCl [From Antivert] Allergy (Verified 01/12/20 14:45) Unknown meclofenamate sodium [From Meclomen] Allergy (Verified 01/12/20 14:45) Unknown methocarbamol [From Robaxisal] Allergy (Verified 01/12/20 14:45) Unknown nabumetone [From Relafen] Allergy (Verified 01/12/20 14:45) Unknown PT STATES IT'S BEEN SO LONG I CAN'T REMEMBER WHAT THEY DO TO ME naproxen Allergy (Verified 01/12/20 14:45) Unknown sulfamethoxazole [From Bactrim] Allergy (Verified 01/12/20 14:45) Unknown trimethoprim [From Bactrim] Allergy (Verified 01/12/20 14:45) Unknown Primary Care Physician: Jovani Mcconnell MD [Primary Care Provider] - Prior records reviewed: Yes Surgical History: appendectomy, cholecystectomy, total knee arthroplasty - Left., - Smoking Status: Never smoker - Family History Maternal Family History: Family History (Last Reviewed 09/22/19 @ 14:24 by JUAN Cárdenas) Father Prostate cancer Brother Heart disease Mother Parkinsons disease Family History: Reports: No pertinent history Paternal Family History: Family History (Last Reviewed 09/22/19 @ 14:24 by JUAN Cárdenas) Father Prostate cancer Brother Heart disease Mother Parkinsons disease Family History: Reports: No pertinent history Review of Systems General: Denies: Chills, Fever Eyes: Denies: Visual changes - bilaterally ENT: Denies: Bilateral ear pain Cardiovascular: Denies: Chest pain Respiratory: Denies: Dyspnea, Cough Gastrointestinal: Denies: Abdominal pain, Nausea, Vomiting, Diarrhea Genitourinary: Denies: Dysuria Musculoskeletal: Denies: Extremity Pain Skin: Denies: Rash Neurological: Denies: Headache Psych: Denies: Depression Allergy: Denies: Uticaria Physical Exam Vital Signs/Narrative: Vital Signs Temp Pulse Resp BP Pulse Ox 01/12/20 14:48 98.1 F 64 17 91/38 L 96 01/12/20 14:43 65 17 71/42 L 01/12/20 14:38 98.1 F 66 18 71/42 L 94 Inital Vital Signs reviewed: Yes General: Well nourished, Well developed Head: Normocephalic ENT: Moist mucous membranes Neck: Supple Cardiovascular: Regular rate, Regular rhythm Respiratory: No distress, CTA bilaterally Abdomen: Soft, Nontender Extremities: - - Left wrist wrapped in Deyvi wrap. Is able to wiggle fingers and has good sensation distally. Skin: - - Ecchymosis noted to the right forearm as well as left hand. Neurological: Alert, Oriented x3 Psychological: Normal affect Diagnostic/Tx/Re-eval Impressions Chest X-Ray 01/12/20 15:15 IMPRESSION: Cardiomegaly. Mild increased markings at the lung bases suggestive of atelectasis. Electronically Signed: Dionsiio Mora, at 15:34 EDT , Service support , 01/12/20 15:15 Chest 1 View (Portable) [RAD] Stat Laboratory Results 01/12/20 01/12/20 01/12/20 14:55 14:55 15:43 WBC 10.2 RBC 3.53 L Hgb 11.6 L Hct 38.4 MCV 108.8 H MCH 32.9 H MCHC 30.2 L RDW Std Deviation 52.9 H RDW Coeff of Sina 13.2 Plt Count 138 L MPV 9.5 Immature Gran % (Auto) 0.500 Neut % (Auto) 83.9 H Lymph % (Auto) 7.9 L [place] % (Auto) 6.6 Eos % (Auto) 0.8 Baso % (Auto) 0.3 Absolute Neuts (auto) 8.5 H Absolute Lymphs (auto) 0.80 L Nucleated RBC % 0 PT 16.8 H INR 1.4 Sodium 137 Potassium 5.6 H Chloride 101 Carbon Dioxide 29.0 Anion Gap 7 BUN 71 H Creatinine 2.80 H Estim Creat Clear Calc 13.48 Est GFR (MDRD) Af Amer 21 L Est GFR (MDRD) Non-Af 17 L BUN/Creatinine Ratio 25.4 H Glucose 93 Calcium 9.0 - EKG Initial EKG Interpretation: Sinus Rhythm - Sinus at 66 with no acute ischemia. - Medical Decision Making Patient does not have a good waveform on her pulse ox reading. When she had a good waveform nursing staff notes that she was 88% on room air. She is 97% on 2 L nasal cannula. Patient is given IV fluids here. On review of records creatinine most recently was 1.8 and up to 2.8 today. Blood pressure has gone up to 104 systolic with IV fluids. I do feel patient will need to be admitted for further hydration and monitoring of renal function as well as adjustments made to her blood pressure medications. It is noted that with the patient's recent surgery blood pressure was in the 80s and 90s. ED Disposition - Plan for ED Patient: Disposition: [facility] Diagnosis: Hypotension, Acute kidney injury Referrals: Jovani Mcconnell MD [Primary Care Provider] -
--- NOTE | 2020-01-12 15:15 | RAD_ITS ---
STUDY: X-RAY CHEST REASON FOR EXAM: Female, 79 years old. Shortness of breath, hypotension TECHNIQUE: Single AP portable view of the chest. COMPARISON: Comparison is made with prior study dated April 07, 2019. FINDINGS: EKG electrodes are seen. Mild degree of increased markings at the lung bases suggestive of a bibasilar atelectasis. Follow-up is recommended. There is no demonstrated pleural abnormality. There is mild cardiac enlargement. Normal mediastinum and antwon. Normal visualized pulmonary arteries. There is atherosclerotic calcification of the aortic arch with tortuosity. There are diffuse degenerative changes of the visualized thoracic spine. Normal visualized ribs, clavicles, and shoulders. There is no demonstrated abnormality of the visualized soft tissue structures of the upper abdomen. RAD/Chest 1 View (Portable) IMPRESSION: Cardiomegaly. Mild increased markings at the lung bases suggestive of atelectasis. Electronically Signed: Dionisio Mora, at 15:34 EDT , Service support ,
[2020-01-12 15:26] LABS: Absolute Neutrophil Count 8.5 X10^3/uL (2.0-7.7); Basophil# 0.03 X10^3/uL; Basophil% 0.3 % (0-1); Eosinophil# 0.08 X10^3/uL; Eosinophils% 0.8 % (0-5); Hematocrit 38.4 % (37-47); Hemoglobin 11.6 g/dL (12.0-15.0); Lymphocyte % 7.9 % (19-41); Mean Corp Hgb Conc 30.2 g/dL (32-36); Mean Corpuscular Hgb 32.9 pg (27.0-32.0); Mean Corpuscular Volume 108.8 fL (81-99); Mean Platelet Vol. 9.5 fl (6.2-12.0); Monocyte# 0.67 X10^3/uL; Monocyte% 6.6 % (0-10); NRBC Flagged by Analyzer 0 % (0-5); Neutrophil # 8.54 X10^3/uL (2.7-7.7); Neutrophil % 83.9 % (47-70); Platelet Count 138 K/mm3 (150-450); RBC Distribution Width CV 13.2 % (11.6-14.6); RBC Distribution Width SD 52.9 fl (35.1-43.9); Red Blood Count 3.53 M/mm3 (4.2-5.4); White Blood Count 10.2 K/mm3 (4.4-11.0)
--- NOTE | 2020-01-12 15:27 | NURSING ---
PER KRISTEN ANAYA, NEED A NEW BLUE. 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
[2020-01-12 15:39] LABS: Anion Gap 7 (5-15); BUN 71 mg/dL (7-18); BUN/Creat Ratio 25.4 RATIO (10-20); Chloride 101 mmol/L (98-107); EST Glomerular Filtration Rate 17 mL/min (>60); Est Glom Filt Rate - Afr Amer 21 mL/min (>60); Estimated Creatinine Clearance 13.48 ml/min; Glucose 93 mg/dL (74-106); Potassium 5.6 mmol/L (3.5-5.1); Sodium Level 137 mmol/L (136-145)
[2020-01-12] MEDS: 0.9% Normal Saline 1,000 ML 150 ML IV (15:40)
[2020-01-12 16:08] LABS: International Normalized Ratio 1.4; Prothrombin Time (Protime)PT. 16.8 SECONDS (11.7-14.9)
--- NOTE | 2020-01-12 16:28 | NURSING ---
PCU OBS RAUL HYPOTENSION, ASHANTI
--- NOTE | 2020-01-12 17:27 | PCM.HP.STD ---
<Neftaly Andrews - Last Filed: 01/12/20 17:27> Problem List (1) Hypotension Status: Acute (2) Acute kidney injury Status: Acute (3) Secondary pulmonary arterial hypertension Status: Chronic (4) Pulmonary emboli Status: Chronic (5) Essential hypertension Status: Chronic (6) Hyperlipidemia Status: Chronic Qualifiers: Hyperlipidemia type: pure hypercholesterolemia Qualified Code(s): E78.00 - Pure hypercholesterolemia, unspecified; E78.0 - Pure hypercholesterolemia History of Present Illness Date of Admission: 01/12/20 Chief Complaint: weakness The patient is a 79 year old F with past medical history of COPD, pulmonary hypertension, obstructive sleep apnea, history of PE and DVT with IVC filter in place, pulmonary fibrosis, thrombocytopenia, congestive heart failure, who presented to the emergency room with complaints of weakness. The patient was in her normal state of health until this morning. She attempted to get out of bed to get ready to go to an appointment and was too weak to stand up. Her daughter came to help her up and together that she could not get up. EMS was called. They found her to have low blood pressure and recommended her coming to the emergency room. In the ER she was given IV fluids however still has low blood pressure with decreased map. Patient took all of her morning meds including metoprolol, valsartan with hydrochlorothiazide, Lasix, and Ultram which she has been using for recent carpal tunnel surgery on the left. The patient is still lightheaded sitting and talking to me in the emergency room. She has no shortness of breath, no increased lower extremity edema, no chest pain, pressure, tightness, heaviness, or palpitations. She has not had issues with low blood pressure in the past. [] Past Medical History Past Medical History (Chronic Problems): Chronic Problems (Last Reviewed 09/22/19 @ 14:24 by JUAN Cárdenas) Secondary pulmonary arterial hypertension (Chronic) Pulmonary emboli (Chronic) Essential hypertension (Chronic) Hyperlipidemia (Chronic) Medical History: Medical History (Last Reviewed 09/22/19 @ 14:24 by JUAN Cárdenas) Secondary pulmonary arterial hypertension (Chronic) I27.21 Pulmonary emboli (Chronic) I26.99 Essential hypertension (Chronic) I10 Hyperlipidemia (Chronic) E78.5 CKD (chronic kidney disease) N18.9 COPD (chronic obstructive pulmonary disease) J44.9 History of ulcerative colitis Z87.19 Obesity E66.9 Obstructive sleep apnea G47.33 Presence of IVC filter Z95.828 Pulmonary embolism I26.99 Pulmonary fibrosis J84.10 RLS (restless legs syndrome) G25.81 Thrombocytopenia D69.6 Carpal tunnel syndrome (Resolved) G56.00 Fall (Resolved) W19.XXXA Fracture of right radius (Resolved) S52.91XA History of deep venous thrombosis Z86.718 Chronic anticoagulation (Inactive) Z79.01 Hyperkalemia (Inactive) E87.5 Restless leg syndrome (Inactive) G25.81 Allergies erythromycin base Allergy (Mild, Verified 01/12/20 14:45) unknown aspirin [From Robaxisal] Allergy (Verified 01/12/20 14:45) Unknown digoxin [From Lanoxin] Allergy (Verified 01/12/20 14:45) Unknown etodolac [From Lodine] Allergy (Verified 01/12/20 14:45) Unknown ibuprofen [From Motrin] Allergy (Verified 01/12/20 14:45) Unknown meclizine HCl [From Antivert] Allergy (Verified 01/12/20 14:45) Unknown meclofenamate sodium [From Meclomen] Allergy (Verified 01/12/20 14:45) Unknown methocarbamol [From Robaxisal] Allergy (Verified 01/12/20 14:45) Unknown nabumetone [From Relafen] Allergy (Verified 01/12/20 14:45) Unknown PT STATES IT'S BEEN SO LONG I CAN'T REMEMBER WHAT THEY DO TO ME naproxen Allergy (Verified 01/12/20 14:45) Unknown sulfamethoxazole [From Bactrim] Allergy (Verified 01/12/20 14:45) Unknown trimethoprim [From Bactrim] Allergy (Verified 01/12/20 14:45) Unknown Penicillins Adverse Reaction (Intermediate, Verified 01/12/20 17:00) Diarrhea Home Medications: Ambulatory Orders Medication Instructions Recorded Rosuvastatin Calcium [Crestor] 10 mg PO QHS 05/13/15 Calcium Carbonate/Vitamin D3 1 tab PO DAILY 10/23/15 [Calcium 500+D Tablet Chew] Pyridoxine HCl [Vitamin B6] 100 mg PO DAILY 10/23/15 Sulfasalazine [Azulfidine] 1,000 mg PO BID 10/23/15 Thiamine Hydrochloride [Vitamin B1] 100 mg PO DAILY 10/23/15 Amitriptyline HCl 100 mg PO QHS 01/30/17 Glucosamine/MSM/Chondroitin A 1 ea PO BID 01/30/17 [Glucosamine Chondroit MSM Tab] Meloxicam [Mobic] 15 mg PO DAILY 01/30/17 Mometasone/Formoterol [Dulera 100 1 puff IH BID 01/30/17 Mcg-5 Mcg Inhaler] Nystatin Powder [Mycostatin Powder] 1 applic TOPICAL TID PRN 10/16/17 Oxybutynin Chloride [Ditropan Xl] 10 mg PO DAILY 10/16/17 Acetaminophen [Tylenol] 1,000 mg PO Q8H PRN tab 11/23/17 Sodium Chloride 0.65% [[place] Nasal 2 spray NASAL TID PRN PRN 11/23/17 [place]] spray.btl metoprolol succinate 25 mg 25 mg PO DAILY 90 Days #90 06/21/18 tablet,extended release 24 hr duloxetine 20 mg capsule,delayed 20 mg PO DAILY cap 09/22/19 release folic acid 400 mcg tablet 800 mcg PO DAILY 09/22/19 levothyroxine 75 mcg tablet 175 mcg PO DAILY@0600 tab 09/22/19 Acetaminophen [Tylenol Arthritis] 650 mg PO DAILY 01/05/20 Furosemide 40 mg PO DAILY 01/05/20 Loratadine [Claritin] 10 mg PO DAILY 01/05/20 Valsartan/Hydrochlorothiazide 1 ea PO DAILY 01/05/20 [Valsartan-Hctz 80-12.5 mg Tab] Cholecalciferol (VIT D3) [Vitamin 1,000 unit PO DAILY 01/12/20 D] Pramipexole Di-HCl [Mirapex] 1.5 mg PO QHS 01/12/20 Warfarin Sodium 5 mg PO DAILY 01/12/20 traMADol [Ultram] 50 mg PO Q6H PRN PRN 01/12/20 Surgical History: Surgical History (Last Reviewed 09/22/19 @ 14:24 by JUAN Cárdenas) H/O right heart catheterization Onset Date: 04/11/19 Z98.890 History of appendectomy Z90.49 History of basal cell carcinoma excision Z98.890, Z85.828 nose and cheek History of carpal tunnel surgery of right wrist Z98.890 History of cholecystectomy Z90.49 History of total left knee replacement Onset Date: 12/19/07 Z96.652 H/O colonoscopy Z98.890 2004 S/P Mohs surgery for basal cell carcinoma Z98.890, Z85.828 nose and cheek S/P appendectomy Z90.49 S/P cholecystectomy Z90.49 Status post total left knee replacement Z96.652 12/19/2007 Surgical History: appendectomy, cholecystectomy, total knee arthroplasty - Left., - Psychiatric History: No pertinent psych hx 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 Denies: Chills, Fever, Weight Change HEENT: Denies: Head Aches, Sinus Congestion, Sinus Drainage Cardiovascular: Reports: Light Headedness. Denies: Chest Pain, Palpitations Respiratory: Denies: Cough, Shortness of Breath, Shortness of breath at rest, Sputum production Gastrointestinal: Denies: Abdominal Pain, Nausea, Vomiting Genitourinary: Denies: Dysuria Musculoskeletal: Denies: Joint Pain, Joint Tenderness Skin: Denies: Rash, Wounds Neurological: Denies: Numbness, Tingling, Focal weakness Psychiatric: Denies: Anxiety, Depression, Homicidal Ideations, Suicidal Ideations Hematologic/ Lymphatic: Denies: Easy Bruising, Easy Bleeding VTE Information - Inpt Only VTE Present on Admission: No VTE Mechan Device Prophylaxis: None VTE Pharm Prophylaxis ordered?: Yes Patient Problems: Active and Suspected Problems (Last Reviewed 09/22/19 @ 14:24 by JUAN Cárdenas) Hypotension (Acute) Acute kidney injury (Acute) - Physical Exam Vitals/I&O's: Vital Signs Temp Pulse Resp BP Pulse Ox 98.4 F 65 22 H 88/55 L 95 01/12/20 16:51 01/12/20 16:51 01/12/20 16:51 01/12/20 16:51 01/12/20 16:51 Oxygen Flow Rate (L/min) 2 Oxygen Delivery Method Nasal Cannula Weight: 291 lb 3.69 oz Body Mass Index (BMI) 51.5 Intake and Output for Last 24 Hours 01/10/20 01/11/20 01/12/20 22:59 23:59 23:59 Intake Total 500 / 500 Balance 500 / 500 General: Alert, Oriented x3, Cooperative HEENT: Atraumatic, PERRLA, EOMI, Normocephalic Neck: Supple, No JVD, Negative Carotid Bruits Lungs: Clear to auscultation, Normal air movement Cardiovascular: Regular rate, No murmurs Abdomen: Bowel Sounds Present, Soft, Non Tender, Obese Extremities: Capillary Refill Less than 3 Seconds, Cyanosis - Fingertips, Edema - 1+ pitting edema bilateral lower extremities Skin: No rashes, No breakdown Musculoskeletal: No Tenderness to Palpation of Joints or Extremities Neurological: Cranial nerves II-XII grossly intact Psych/Mental Status: Normal Affect, Appropriate, Alert and oriented to time, place, person, mood and affect Laboratory Results 01/12/20 14:55: WBC 10.2, RBC 3.53 L, Hgb 11.6 L, Hct 38.4, MCV 108.8 H, MCH 32.9 H, MCHC 30.2 L, RDW Std Deviation 52.9 H, RDW Coeff of Sina 13.2, Plt Count 138 L, MPV 9.5, Immature Gran % (Auto) 0.500, Neut % (Auto) 83.9 H, Lymph % (Auto) 7.9 L, [place] % (Auto) 6.6, Eos % (Auto) 0.8, Baso % (Auto) 0.3, Absolute Neuts (auto) 8.5 H, Absolute Lymphs (auto) 0.80 L, Nucleated RBC % 0 01/12/20 14:55: Sodium 137, Potassium 5.6 H, Chloride 101, Carbon Dioxide 29.0, Anion Gap 7, BUN 71 H, Creatinine 2.80 H, Estim Creat Clear Calc 13.48, Est GFR (MDRD) Af Amer 21 L, Est GFR (MDRD) Non-Af 17 L, BUN/Creatinine Ratio 25.4 H, Glucose 93, Calcium 9.0 01/12/20 15:43: PT 16.8 H, INR 1.4 Current Medications Sodium Chloride () 1,000 mls @ 150 mls/hr IV .Q6H40M [facility] Last Admin: 01/12/20 15:40 Dose: 150 mls/hr Documented by: Sodium Chloride () 10 - 40 ml IV UD PRN PRN Reason: SALINE FLUSH Assessment/Plan All Active Problems (Last Reviewed 09/22/19 @ 14:24 by JUAN Cárdenas) Hypotension (Acute) Acute kidney injury (Acute) Carpal tunnel syndrome (Resolved) Fall (Resolved) Fracture of right radius (Resolved) 1. Hypotension-unclear etiology. Hold home antihypertensive medications. Recently started on Ultram for pain in her left wrist-recent carpal tunnel surgery. Hold this. Patient's map is still decreased and will need to go to the ICU overnight. Continue IV fluids. Consult to critical care. Check TSH. EKG demonstrates normal sinus rhythm with low voltage QRS. 2. Acute kidney injury on CKD stage III-probably due to hypotension. Hold nephrotoxic agents losartan, HCTZ, meloxicam, Lasix 3. Obstructive sleep apnea-continue BiPAP at night 4. History of DVTs, PEs, IVC filter-also on warfarin, INR is 1.4. 5. History of COPD, pulmonary hypertension, pulmonary fibrosis, congestive heart failure-chest x-ray demonstrates cardiomegaly, atelectasis. No increased lower extremity edema no shortness of breath. Continue aerosols, incentive spirometer. Watch for volume overload. 6. Hyperlipidemia-continue statin therapy 7. Debility and weakness-patient is severely weak at baseline, normally her daughter helps her out of bed. I discussed that she has if she is unable to get out of bed on her own and is becoming increasingly weak she will be need to be evaluated by PT OT and may require further therapy upon discharge from the hospital possibly including penitentiary. 8. Carpal tunnel with recent repair on the left side-patient of Dr. Nugent DVT prophylaxis: Warfarin, IVC filter in place. Trend INR. This patient was seen by Neftaly Andrews PA-C under the supervision of Dr. Barraza. <Duc Barraza - Last Filed: 03/09/20 18:13> History of Present Illness The patient is a 79 year old F with history of chronic heart failure, COPD, pulmonary hypertension and obstructive sleep apnea on BiPAP came to ED with dizzy, lightheadedness and generalized weakness. Patient was not able to get up from the bed because of weakness. She denies any fall. No chest pain or shortness of breath. Patient also felt mild blurry vision. Patient has bruises on upper extremities secondary to IV sticks. Patient had recent left carpal tunnel surgery on 01/09/2020. In ED, her blood pressure was low, 71/42 which improved 106/56 regular rate 88/51. Patient further said her blood pressure used to be high but has been on lower side,'s in 90s and 100 for last [address] barreto. [] Past Medical History Medical History: Medical History (Last Reviewed 09/22/19 @ 14:24 by JUAN Cárdenas) Secondary pulmonary arterial hypertension (Chronic) I27.21 Pulmonary emboli (Chronic) I26.99 Essential hypertension (Chronic) I10 Hyperlipidemia (Chronic) E78.5 CKD (chronic kidney disease) N18.9 COPD (chronic obstructive pulmonary disease) J44.9 History of ulcerative colitis Z87.19 Obesity E66.9 Obstructive sleep apnea G47.33 Presence of IVC filter Z95.828 Pulmonary embolism I26.99 Pulmonary fibrosis J84.10 RLS (restless legs syndrome) G25.81 Thrombocytopenia D69.6 Carpal tunnel syndrome (Resolved) G56.00 Fall (Resolved) W19.XXXA Fracture of right radius (Resolved) S52.91XA History of deep venous thrombosis Z86.718 Chronic anticoagulation (Inactive) Z79.01 Hyperkalemia (Inactive) E87.5 Restless leg syndrome (Inactive) G25.81 Allergies erythromycin base Allergy (Mild, Verified 01/12/20 14:45) unknown aspirin [From Robaxisal] Allergy (Verified 01/12/20 14:45) Unknown digoxin [From Lanoxin] Allergy (Verified 01/12/20 14:45) Unknown etodolac [From Lodine] Allergy (Verified 01/12/20 14:45) Unknown ibuprofen [From Motrin] Allergy (Verified 01/12/20 14:45) Unknown meclizine HCl [From Antivert] Allergy (Verified 01/12/20 14:45) Unknown meclofenamate sodium [From Meclomen] Allergy (Verified 01/12/20 14:45) Unknown methocarbamol [From Robaxisal] Allergy (Verified 01/12/20 14:45) Unknown nabumetone [From Relafen] Allergy (Verified 01/12/20 14:45) Unknown PT STATES IT'S BEEN SO LONG I CAN'T REMEMBER WHAT THEY DO TO ME naproxen Allergy (Verified 01/12/20 14:45) Unknown sulfamethoxazole [From Bactrim] Allergy (Verified 01/12/20 14:45) Unknown trimethoprim [From Bactrim] Allergy (Verified 01/12/20 14:45) Unknown Penicillins Adverse Reaction (Intermediate, Verified 01/12/20 17:00) Diarrhea Surgical History: Surgical History (Last Reviewed 09/22/19 @ 14:24 by JUAN Cárdenas) H/O right heart catheterization Onset Date: 04/11/19 Z98.890 History of appendectomy Z90.49 History of basal cell carcinoma excision Z98.890, Z85.828 nose and cheek History of carpal tunnel surgery of right wrist Z98.890 History of cholecystectomy Z90.49 History of total left knee replacement Onset Date: 12/19/07 Z96.652 H/O colonoscopy Z98.890 2005 S/P Mohs surgery for basal cell carcinoma Z98.890, Z85.828 nose and cheek S/P appendectomy Z90.49 S/P cholecystectomy Z90.49 Status post total left knee replacement Z96.652 12/19/2007 - *Family History Maternal Family History: Family History (Last Reviewed 01/12/20 @ 17:35 by JUAN Rowe) Father Prostate cancer Brother Heart disease Mother Parkinsons disease Paternal Family History: Family History (Last Reviewed 01/12/20 @ 17:35 by JUAN Rowe) Father Prostate cancer Brother Heart disease Mother Parkinsons disease VTE Information - Inpt Only VTE Present on Admission: No VTE Mechan Device Prophylaxis: None VTE Pharm Prophylaxis ordered?: Yes - Physical Exam Vitals/I&O's: Vital Signs Temp Pulse Resp BP Pulse Ox 98.4 F 65 22 H 88/55 L 95 01/12/20 16:51 01/12/20 16:51 01/12/20 16:51 01/12/20 16:51 01/12/20 16:51 Oxygen Flow Rate (L/min) 2 Oxygen Delivery Method Nasal Cannula Weight: 291 lb 3.69 oz Body Mass Index (BMI) 51.5 Intake and Output for Last 24 Hours 01/10/20 01/11/20 01/12/20 22:59 23:59 23:59 Intake Total 500 / 500 Balance 500 / 500 General: Alert, Oriented x3, Cooperative HEENT: Atraumatic, PERRLA, EOMI, Normocephalic Neck: Supple, No JVD, Negative Carotid Bruits Lungs: Clear to auscultation, No rhonchi, No wheeze, No rales, Diminished Cardiovascular: Regular rate, Regular Rhythm, Normal S1, Normal S2, No murmurs Abdomen: Bowel Sounds Present, Soft, Non Tender Extremities: Capillary Refill Less than 3 Seconds, Cyanosis, Edema Skin: No rashes, No breakdown, - - Bruise over upper extremities. Deyvi wrap bandage over left hand and forearm after CTS surgery Musculoskeletal: No Tenderness to Palpation of Joints or Extremities, Arthritic Changes Neurological: Cranial nerves II-XII grossly intact, Deep Tendon Reflexes 2+/4 and Symmetrical, Neuro grossly intact Psych/Mental Status: Normal Affect, Appropriate Laboratory Results 01/12/20 14:55: WBC 10.2, RBC 3.53 L, Hgb 11.6 L, Hct 38.4, MCV 108.8 H, MCH 32.9 H, MCHC 30.2 L, RDW Std Deviation 52.9 H, RDW Coeff of Sina 13.2, Plt Count 138 L, MPV 9.5, Immature Gran % (Auto) 0.500, Neut % (Auto) 83.9 H, Lymph % (Auto) 7.9 L, [place] % (Auto) 6.6, Eos % (Auto) 0.8, Baso % (Auto) 0.3, Absolute Neuts (auto) 8.5 H, Absolute Lymphs (auto) 0.80 L, Nucleated RBC % 0 01/12/20 14:55: Sodium 137, Potassium 5.6 H, Chloride 101, Carbon Dioxide 29.0, Anion Gap 7, BUN 71 H, Creatinine 2.80 H, Estim Creat Clear Calc 13.48, Est GFR (MDRD) Af Amer 21 L, Est GFR (MDRD) Non-Af 17 L, BUN/Creatinine Ratio 25.4 H, Glucose 93, Calcium 9.0 01/12/20 15:43: PT 16.8 H, INR 1.4 Current Medications Sodium Chloride () 1,000 mls @ 150 mls/hr IV .Q6H40M [facility] Last Admin: 01/12/20 15:40 Dose: 150 mls/hr Documented by: Sodium Chloride () 10 - 40 ml IV UD PRN PRN Reason: SALINE FLUSH Assessment/Plan This patient was seen in conjunction with Neftaly MARTINEZ. I have independently interviewed and examined the patient and reviewed pertinent history, examination findings, laboratory and plan of management. I have reviewed the note and agree with the documented findings with the few additional points. In brief, patient is admitted for hypotension, probably related to heart failure/antihypertensive medications. EF 65% with stage I diastolic dysfunction. Patient is being admitted in ICU for hypotension. Hold antihypertensive medications. Patient in 1 L of normal saline. Continue IV fluid resuscitation. Serial cardiac enzymes as patient had near syncope symptoms probably related to hypotension. Twelve-lead EKG reviewed. Normal sinus rhythm with low voltage QRS. Patient denies chest pain or shortness of breath. Patient also has acute kidney injury on CKD stage III with mild hyperkalemia, K5.6. BUN/creatinine 71/2.8. Other comorbidities as mentioned above including obstructive sleep apnea on BiPAP. Patient had echo in September 2018. Interpretation Summary Normal LV size. Left ventricular systolic function is normal. The estimated ejection fraction is 65 %. Stage 1 diastolic dysfunction. Mild (1+) tricuspid valve insufficiency. Pulmonary artery systolic pressure is 38 mmHg. Contrast injection was performed. I have discussed my assessment with Neftaly MARTINEZ and orders have been reviewed. Advance directive/CODE STATUS: Patient has living will in EMR. It is states in terminal condition already reversible condition/permanently unconscious state, she did not want to administer life-sustaining treatment including CPR, intubation or ventilation or artificial nutrition. No vasopressor or central line insertion. She is okay with BiPAP and oxygen. DNR CC arrest Total time spent in [id number] encounter in discussion of advanced directive 16 minutes. Inpatient E&M: 04408 Init Hosp L3 Procedures: 60271 Advncd Care Plan 30 Min
--- NOTE | 2020-01-12 17:32 | CT_ITS ---
STUDY: CT BRAIN WITHOUT CONTRAST REASON FOR EXAM: Female, 79 years old. HYPOTENSION FALL-ON COUMADIN RADIATION DOSAGE (If Supplied By Facility): CTDIvol = ( 44.99 ) mGy, DLP = ( 846.73 ) mGycm TECHNIQUE: Transaxial CT imaging of the brain was performed without administration of intravenous contrast material. Individualized dose optimization techniques were used for this CT. COMPARISON: Previous study of 07/24/2011 FINDINGS: Normal soft tissue structures. Normal calvarium. Normal size ventricles and extra-axial spaces for the patient''s age. Normal white matter tracts of the cerebral hemispheres. Normal basal ganglia and thalami. Normal brainstem. Normal cerebellum. There is no intracranial hemorrhage. There are no findings of an acute ischemic infarction. Normal visualized paranasal sinuses. CT/Brain/Head without Contrast IMPRESSION: Normal unenhanced CT scan of the brain. Electronically Signed: Josh Mahan MD at 18:29 EDT , Service support ,
--- NOTE | 2020-01-12 18:25 | ECHOCS_ITS ---
Reason For Study: Hypotension Procedure This was a 2D Doppler, Color Flow transthoracic echocardiogram. The study was technically difficult. Contrast injection was performed. Exam performed portable in ICU/CCU. Left Ventricle Based upon the 2D echocardiographic and contrast enhanced images obtained the left ventricle appears to be grossly normal in size, wall motion, and systolic function. The estimated ejection fraction is 60 %. Diastolic function is indeterminate. Right Ventricle Based upon the 2D echocardiographic and contrast enhanced images obtained the right ventricle appears to be dilated and globally dysfunctional. Atria The left atrium is mildly enlarged. Normal right atrium. No doppler evidence for ASD. Mitral Valve There is no mitral annular calcification. Normal mitral valve. Trivial mitral valve insufficiency. Tricuspid Valve Normal tricuspid valve. Trivial tricuspid valve insufficiency. Right ventricular systolic pressure estimated to be 39 mmHg. Aortic Valve Trisinus/trileaflet aortic valve. Normal aortic valve. Pulmonic Valve The pulmonic valve is not well visualized. Trivial pulmonic valve insufficiency. Great Vessels Normal sized aortic root. Pericardium/Pleural No pericardial effusion. Medication Diluted definity 3ml given slow IV push to enhance endocardial definition. MMode/2D Measurements & Calculations LVIDd: 5.4 cm IVSd: 1.3 cm Ao root diam: 3.6 cm LVIDs: 3.6 cm LVPWd: 1.1 cm LA dimension: 4.5 cm FS: 33.8 % LAV(MOD-sp4): 64.9 ml LA A4 area: 20.8 cm2 Time Measurements MV dec time: 0.27 sec Doppler Measurements & Calculations MV E max mayank: 98.8 cm/sec Lat Peak E' Mayank: 12.7 cm/sec Med Peak E' [place]ank: 10.3 cm/sec MV A max mayank: 111.3 cm/sec E/E' lat: 7.8 E/E' med: 9.6 MV E/A: 0.89 MV V2 max: 113.6 cm/sec MV P1/2t max mayank: 114.6 cm/sec Ao V2 max: 180.1 cm/sec MV max P.2 mmHg MV P1/2t: 52.9 msec Ao max P.0 mmHg MV V2 mean: 63.4 cm/sec MV dec slope: 634.7 cm/sec2 MV mean P.8 mmHg MV V2 VTI: 35.5 cm MVA(P1/2t): 4.2 cm2 LV V1 max: 107.4 cm/sec PA V2 max: 99.2 cm/sec TR max mayank: 298.1 cm/sec LV V1 max P.6 mmHg TR max P.5 mmHg Interpretation Summary The study was technically difficult. Contrast injection was performed. Based upon the 2D echocardiographic and contrast enhanced images obtained the left ventricle appears to be grossly normal in size, wall motion, and systolic function. The estimated ejection fraction is 60 %. Based upon the 2D echocardiographic and contrast enhanced images obtained the right ventricle appears to be dilated and globally dysfunctional. The left atrium is mildly enlarged. Trivial mitral valve insufficiency. Trivial tricuspid valve insufficiency. Trivial pulmonic valve insufficiency. Right ventricular systolic pressure estimated to be 39 mmHg. Diastolic function is indeterminate. Ordering Physician: Neftaly Andrews Referring Physician: Jovani Mcconnell Performed By: Fernando Ontiveros RCS
[2020-01-12] MEDS: 0.9% Normal Saline 1,000 ML 999 ML IV (19:45)
[2020-01-12] MEDS: Sodium Polystyrene Sulfonate 15 GM/60 ML UDC PO (20:17)
[2020-01-12] MEDS: 0.9% Normal Saline 1,000 ML 125 ML IV (20:18)
[2020-01-12] MEDS: Budesonide Respules 0.5 MG/2 ML AMPUL.NEB. INHALATION (21:59)
[2020-01-12] MEDS: Albuterol 2.5 MG/3 ML VIAL.NEB. INHALATION (21:59)
[2020-01-12] MEDS: sulfaSALAzine 500 MG Tablet 1000 MG PO (22:22)
[2020-01-12] MEDS: Atorvastatin Calcium 20 MG Tablet PO (22:22)
[2020-01-12] MEDS: Enoxaparin 120 MG/0.8 ML Syringe SC (22:22)
[2020-01-13] VITALS (31 sets, daily range): BP systolic 65–128; BP diastolic 25–99; PULSE 59–120; RESP 13–76; TEMP 36.6–37.2; O2SAT 90–98
--- NOTE | 2020-01-13 00:50 | NURSING ---
Levophed was started, after approximately five minutes patient became bradycardic in the 30's and complained of a severe headache. Levophed was stopped, HR increased to the 60's, EKG shows NSR, headache has improved, Dr. Knight aware, BP stable at this time.
[2020-01-13] MEDS: Acetaminophen 325 MG Tablet 650 MG PO ×2 (00:52→08:11)
--- NOTE | 2020-01-13 00:53 | EKG12_ITS ---
Test Reason : BRADYCARDIA Blood Pressure : / mmHG Vent. Rate : 065 BPM Atrial Rate : 065 BPM P-R Int : 184 ms QRS Dur : 088 ms QT Int : 390 ms P-R-T Axes : 029 -04 018 degrees QTc Int : 405 ms Normal sinus rhythm Low voltage QRS Borderline ECG When compared with ECG of 12-JAN-2020 15:21, MANUAL COMPARISON REQUIRED, DATA IS UNCONFIRMED Confirmed by JI MARTIN ([id number]), graphics editor SHEA RAMOS ([id number] on 01/15/2020 4:26:49 PM Referred By: RAUL Confirmed By:JI MARTIN
[2020-01-13 03:54] LABS: Absolute Lymphocyte Count 1.35 X10^3/uL (0.83-4.51); Absolute Neutrophil Count 6.3 X10^3/uL (2.0-7.7); Basophil# 0.02 X10^3/uL; Basophil% 0.2 % (0-1); Eosinophil# 0.14 X10^3/uL; Eosinophils% 1.7 % (0-5); Hematocrit 32.1 % (37-47); Hemoglobin 9.8 g/dL (12.0-15.0); Lymphocyte # 1.35 X10^3/ul (4.0); Lymphocyte % 16.1 % (19-41); Mean Corp Hgb Conc 30.5 g/dL (32-36); Mean Corpuscular Hgb 33.3 pg (27.0-32.0); Mean Corpuscular Volume 109.2 fL (81-99); Mean Platelet Vol. 9.3 fl (6.2-12.0); Monocyte# 0.61 X10^3/uL; Monocyte% 7.3 % (0-10); NRBC Flagged by Analyzer 0 % (0-5); Neutrophil # 6.25 X10^3/uL (2.7-7.7); Neutrophil % 74.3 % (47-70); Platelet Count 116 K/mm3 (150-450); RBC Distribution Width CV 13.2 % (11.6-14.6); RBC Distribution Width SD 53.8 fl (35.1-43.9); Red Blood Count 2.94 M/mm3 (4.2-5.4); White Blood Count 8.4 K/mm3 (4.4-11.0)
[2020-01-13 04:02] LABS: International Normalized Ratio 1.5
[2020-01-13 04:19] LABS: Anion Gap 6 (5-15); BUN 69 mg/dL (7-18); Calcium,Total 7.9 mg/dL (8.5-10.1); Chloride 108 mmol/L (98-107); Creatinine, Serum 2.87 mg/dL (0.55-1.02); EST Glomerular Filtration Rate 17 mL/min (>60); Est Glom Filt Rate - Afr Amer 20 mL/min (>60); Estimated Creatinine Clearance 13.15 ml/min; Glucose 101 mg/dL (74-106); Sodium Level 139 mmol/L (136-145); Thyroid Stim Hormone (TSH) 1.72 uIU/mL (0.358-3.74)
[2020-01-13] MEDS: 0.9% Normal Saline 1,000 ML 500 ML IV (04:36)
[2020-01-13] MEDS: 0.9% Normal Saline 1,000 ML 125 ML IV (04:36)
[2020-01-13] MEDS: Levothyroxine 175 MCG Tablet PO (05:15)
--- NOTE | 2020-01-13 05:55 | VDLE_ITS ---
Reason For Study: Swelling RIGHT LEFT GSV is normal. GSV is normal. CFV is compressible, spontaneous, phasic, CFV is compressible, spontaneous, phasic, competent and demonstrates normal competent, and demonstrates normal augmentation. augmentation. FV is compressible, spontaneous, phasic, FV is compressible, spontaneous, phasic, competent and demonstrates normal competent and demonstrates normal augmentation. augmentation. POP V is compressible, spontaneous, phasic, POP V is compressible, spontaneous, phasic, competent and demonstrates normal competent and demonstrates normal augmentation. augmentation. T/P Trunk is compressible. T/P Trunk is compressible. PTV is compressible. PTV is compressible. RT PerV is compressible. LT PerV is compressible. Procedure Exam performed portable in ICU/CCU. A preliminary report was called and/or faxed to ICU Nurse. Interpretation Summary Deep veins of the lower extremities are bilaterally patent and compressible segmentally. There is no evidence of deep vein thrombosis on either side. Valvular competence appears intact within the proximal deep venous systems bilaterally. The great saphenous veins appear bilaterally patent and compressible segmentally. Ordering Physician: Duc Barraza Referring Physician: Jovani Mcconnell Performed By: Leonila Estrada RVT
[2020-01-13] MEDS: Budesonide Respules 0.5 MG/2 ML AMPUL.NEB. INHALATION ×2 (06:45→19:22)
[2020-01-13] MEDS: Albuterol 2.5 MG/3 ML VIAL.NEB. INHALATION ×3 (06:45→19:22)
--- NOTE | 2020-01-13 06:47 | CON.PCM_ITS ---
Reason for Consult Date of Consultation: 01/13/20 Reason for Consultation: Hypotension History of Present Illness: The patient is a 79-year-old female, with a history as outlined below, who presented to the emergency department on January 11 with generalized weakness, dizziness and hypotension. The patient apparently has a history of pulmonary emboli, which did require catheter directed lytic therapy in 2008. She also has a known history of obstructive sleep apnea, for which her polysomnogram in 2015 indicated a need for CPAP with a pressure support of 16 cm of water with a 6 L/min oxygen bleed in. Surface echocardiogram from September 2018 revealed normal LV size with an ejection fraction of 65% and stage I diastolic dysfunction. Pulmonary artery systolic pressure was estimated to be 38 mmHg. The patient did report that her primary care provider has been making changes in her antihypertensive regimen recently, and in fact, decreased the amount of medication that she has been taking. On presentation to the emergency department, the patient was noted to be afebrile and maintaining appropriate oxygen saturations on room air. Nevertheless, her presenting blood pressure was documented to be 71/42 mmHg. Laboratory evaluation revealed no evidence of a leukocytosis. INR was noted to be 1.4. Chemistry profile was notable for a potassium of 5.6 and creatinine of 2.80. Troponin was negative. The patient received supplemental IV fluid hydration with subsequent improvement in her hemodynamics. She was subsequently admitted to the medical intensive care unit for further management. Past Medical History Past Medical History (Chronic Problems): Chronic Problems (Last Reviewed 09/22/19 @ 14:24 by JUAN Cárdenas) Secondary pulmonary arterial hypertension (Chronic) Pulmonary emboli (Chronic) Essential hypertension (Chronic) Hyperlipidemia (Chronic) Medical History: Medical History (Last Reviewed 09/22/19 @ 14:24 by JUAN Cárdenas) Secondary pulmonary arterial hypertension (Chronic) I27.21 Pulmonary emboli (Chronic) I26.99 Essential hypertension (Chronic) I10 Hyperlipidemia (Chronic) E78.5 CKD (chronic kidney disease) N18.9 COPD (chronic obstructive pulmonary disease) J44.9 History of ulcerative colitis Z87.19 Obesity E66.9 Obstructive sleep apnea G47.33 Presence of IVC filter Z95.828 Pulmonary embolism I26.99 Pulmonary fibrosis J84.10 RLS (restless legs syndrome) G25.81 Thrombocytopenia D69.6 Carpal tunnel syndrome (Resolved) G56.00 Fall (Resolved) W19.XXXA Fracture of right radius (Resolved) S52.91XA History of deep venous thrombosis Z86.718 Chronic anticoagulation (Inactive) Z79.01 Hyperkalemia (Inactive) E87.5 Restless leg syndrome (Inactive) G25.81 Allergies erythromycin base Allergy (Mild, Verified 01/12/20 14:45) unknown aspirin [From Robaxisal] Allergy (Verified 01/12/20 14:45) Unknown digoxin [From Lanoxin] Allergy (Verified 01/12/20 14:45) Unknown etodolac [From Lodine] Allergy (Verified 01/12/20 14:45) Unknown ibuprofen [From Motrin] Allergy (Verified 01/12/20 14:45) Unknown meclizine HCl [From Antivert] Allergy (Verified 01/12/20 14:45) Unknown meclofenamate sodium [From Meclomen] Allergy (Verified 01/12/20 14:45) Unknown methocarbamol [From Robaxisal] Allergy (Verified 01/12/20 14:45) Unknown nabumetone [From Relafen] Allergy (Verified 01/12/20 14:45) Unknown PT STATES IT'S BEEN SO LONG I CAN'T REMEMBER WHAT THEY DO TO ME naproxen Allergy (Verified 01/12/20 14:45) Unknown sulfamethoxazole [From Bactrim] Allergy (Verified 01/12/20 14:45) Unknown trimethoprim [From Bactrim] Allergy (Verified 01/12/20 14:45) Unknown Penicillins Adverse Reaction (Intermediate, Verified 01/12/20 17:00) Diarrhea Home Medications: Ambulatory Orders Medication Instructions Recorded Rosuvastatin Calcium [Crestor] 10 mg PO QHS 05/13/15 Calcium Carbonate/Vitamin D3 1 tab PO DAILY 10/23/15 [Calcium 500+D Tablet Chew] Pyridoxine HCl [Vitamin B6] 100 mg PO DAILY 10/23/15 Sulfasalazine [Azulfidine] 1,000 mg PO BID 10/23/15 Thiamine Hydrochloride [Vitamin B1] 100 mg PO DAILY 10/23/15 Amitriptyline HCl 100 mg PO QHS 01/30/17 Glucosamine/MSM/Chondroitin A 1 ea PO BID 01/30/17 [Glucosamine Chondroit MSM Tab] Meloxicam [Mobic] 15 mg PO DAILY 01/30/17 Mometasone/Formoterol [Dulera 100 1 puff IH BID 01/30/17 Mcg-5 Mcg Inhaler] Nystatin Powder [Mycostatin Powder] 1 applic TOPICAL TID PRN 10/16/17 Oxybutynin Chloride [Ditropan Xl] 10 mg PO DAILY 10/16/17 Acetaminophen [Tylenol] 1,000 mg PO Q8H PRN tab 11/23/17 Sodium Chloride 0.65% [[place] Nasal 2 spray NASAL TID PRN PRN 11/23/17 [place]] spray.btl metoprolol succinate 25 mg 25 mg PO DAILY 90 Days #90 06/21/18 tablet,extended release 24 hr duloxetine 20 mg capsule,delayed 20 mg PO DAILY cap 09/22/19 release folic acid 400 mcg tablet 800 mcg PO DAILY 09/22/19 levothyroxine 75 mcg tablet 175 mcg PO DAILY@0600 tab 09/22/19 Acetaminophen [Tylenol Arthritis] 650 mg PO DAILY 01/05/20 Furosemide 40 mg PO DAILY 01/05/20 Loratadine [Claritin] 10 mg PO DAILY 01/05/20 Valsartan/Hydrochlorothiazide 1 ea PO DAILY 01/05/20 [Valsartan-Hctz 80-12.5 mg Tab] Cholecalciferol (VIT D3) [Vitamin 1,000 unit PO DAILY 01/12/20 D] Pramipexole Di-HCl [Mirapex] 1.5 mg PO QHS 01/12/20 Warfarin Sodium 5 mg PO DAILY 01/12/20 traMADol [Ultram] 50 mg PO Q6H PRN PRN 01/12/20 Surgical History: Surgical History (Last Reviewed 09/22/19 @ 14:24 by JUAN Cárdenas) H/O right heart catheterization Onset Date: 04/11/19 Z98.890 History of appendectomy Z90.49 History of basal cell carcinoma excision Z98.890, Z85.828 nose and cheek History of carpal tunnel surgery of right wrist Z98.890 History of cholecystectomy Z90.49 History of total left knee replacement Onset Date: 12/19/07 Z96.652 H/O colonoscopy Z98.890 2005 S/P Mohs surgery for basal cell carcinoma Z98.890, Z85.828 nose and cheek S/P appendectomy Z90.49 S/P cholecystectomy Z90.49 Status post total left knee replacement Z96.652 12/19/2007 Surgical History: appendectomy, cholecystectomy, total knee arthroplasty - Left., - Psychiatric History: No pertinent psych hx [employer] History: No pertinent [employer] history Lives: Alone Smoking Status: Former smoker Tobacco Use: Cigarettes Alcohol: None Drugs: None - *Family History Maternal Family History: Family History (Last Reviewed 01/12/20 @ 17:35 by JUAN Rowe) Father Prostate cancer Brother Heart disease Mother Parkinsons disease History Items: No pertinent history Paternal Family History: Family History (Last Reviewed 01/12/20 @ 17:35 by JUAN Rowe) Father Prostate cancer Brother Heart disease Mother Parkinsons disease History Items: No pertinent history Review of Systems Constitutional: Reports: Weakness. Denies: Chills, Fever Eyes: Denies: Blurred vision, Double vision HEENT: Denies: Head Aches, Sinus Congestion, Sinus Drainage Cardiovascular: Reports: Light Headedness Respiratory: Denies: Cough, Shortness of breath at rest, Sputum production Gastrointestinal: Denies: Abdominal Pain, Nausea, Vomiting Genitourinary: Denies: Dysuria Musculoskeletal: Denies: Joint Pain, Joint Tenderness Skin: Denies: Rash, Wounds Neurological: Denies: Change in Speech, Seizures Psychiatric: Denies: Anxiety, Depression, Homicidal Ideations, Suicidal Ideations Hematologic/ Lymphatic: Reports: Hx of blood clot. Denies: Easy Bruising, Easy Bleeding Patient Problems: Active and Suspected Problems (Last Reviewed 09/22/19 @ 14:24 by JUAN Cárdenas) Hypotension (Acute) Acute kidney injury (Acute) Objective: The patient's most recent lab work, culture data and imaging studies have all been personally reviewed. - Physical Exam Vitals/I&O's: Vital Signs Temp Pulse Resp BP Pulse Ox 98.5 F 67 19 H 84/61 L 93 01/13/20 02:00 01/13/20 06:40 01/13/20 06:00 01/13/20 06:40 01/13/20 06:00 Oxygen Flow Rate (L/min) 2 Oxygen Delivery Method Venturi Mask Weight: 296 lb 8.348 oz Body Mass Index (BMI) 51.0 Intake and Output for Last 24 Hours 01/11/20 01/12/20 01/13/20 23:59 23:59 23:59 Intake Total 1999 2240.78 / 2239.78 Output Total / 300 Balance 1999.78 / 1939.78 General: Alert, Oriented x3, Cooperative, No apparent distress, - - Morbidly obese HEENT: Atraumatic, Normocephalic Oral: Moist Mucosa, No Gingival or Mucosal Lesions/ Ulcerations Neck: Supple, No Nodes, Trachea Midline Lungs: No rhonchi, No wheeze, No rales, Diminished Cardiovascular: Regular rate, Regular Rhythm, Normal S1, Normal S2, No murmurs Abdomen: Bowel Sounds Present, Soft, Non Tender, Obese Extremities: No clubbing, No cyanosis Skin: No breakdown Musculoskeletal: No Tenderness to Palpation of Joints or Extremities Lymphatic: No Cervical, Supraclavicular, or Inguinal Adenopathy Neurological: Cranial nerves II-XII grossly intact, Neuro grossly intact Psych/Mental Status: Alert and oriented to time, place, person, mood and affect Labs (Last 48 Hours) 01/12/20 01/12/20 01/12/20 14:55 14:55 15:43 WBC 10.2 RBC 3.53 L Hgb 11.6 L Hct 38.4 MCV 108.8 H MCH 32.9 H MCHC 30.2 L RDW Std Deviation 52.9 H RDW Coeff of Sina 13.2 Plt Count 138 L MPV 9.5 Immature Gran % (Auto) 0.500 Neut % (Auto) 83.9 H Lymph % (Auto) 7.9 L [place] % (Auto) 6.6 Eos % (Auto) 0.8 Baso % (Auto) 0.3 Absolute Neuts (auto) 8.5 H Absolute Lymphs (auto) 0.80 L Nucleated RBC % 0 PT 16.8 H INR 1.4 Sodium 137 Potassium 5.6 H Chloride 101 Carbon Dioxide 29.0 Anion Gap 7 BUN 71 H Creatinine 2.80 H Estim Creat Clear Calc 13.48 Est GFR (MDRD) Af Amer 21 L Est GFR (MDRD) Non-Af 17 L BUN/Creatinine Ratio 25.4 H Glucose 93 Calcium 9.0 Troponin I TSH 01/12/20 01/13/20 01/13/20 21:45 00:50 03:50 WBC 8.4 RBC 2.94 L Hgb 9.8 L Hct 32.1 L MCV 109.2 H MCH 33.3 H MCHC 30.5 L RDW Std Deviation 53.8 H RDW Coeff of Sina 13.2 Plt Count 116 L MPV 9.3 Immature Gran % (Auto) 0.400 Neut % (Auto) 74.3 H Lymph % (Auto) 16.1 L [place] % (Auto) 7.3 Eos % (Auto) 1.7 Baso % (Auto) 0.2 Absolute Neuts (auto) 6.3 Absolute Lymphs (auto) 1.35 Nucleated RBC % 0 PT INR Sodium Potassium Chloride Carbon Dioxide Anion Gap BUN Creatinine Estim Creat Clear Calc Est GFR (MDRD) Af Amer Est GFR (MDRD) Non-Af BUN/Creatinine Ratio Glucose Calcium Troponin I < 0.015 < 0.015 TSH 01/13/20 01/13/20 01/13/20 03:50 03:50 03:50 WBC RBC Hgb Hct MCV MCH MCHC RDW Std Deviation RDW Coeff of Sina Plt Count MPV Immature Gran % (Auto) Neut % (Auto) Lymph % (Auto) [place] % (Auto) Eos % (Auto) Baso % (Auto) Absolute Neuts (auto) Absolute Lymphs (auto) Nucleated RBC % PT 18.0 H INR 1.5 Sodium 139 Potassium 5.0 Chloride 108 H Carbon Dioxide 25.0 Anion Gap 6 BUN 69 H Creatinine 2.87 H Estim Creat Clear Calc 13.15 Est GFR (MDRD) Af Amer 20 L Est GFR (MDRD) Non-Af 17 L BUN/Creatinine Ratio 24.0 H Glucose 101 Calcium 7.9 L Troponin I < 0.015 TSH 1.72 Clinical Impression(s) from Imaging Studies Chest X-Ray 01/12/20 15:15 IMPRESSION: Cardiomegaly. Mild increased markings at the lung bases suggestive of atelectasis. Electronically Signed: Dionisio Mora, at 15:34 EDT , Service support , Brain CT 01/12/20 17:32 IMPRESSION: Normal unenhanced CT scan of the brain. Electronically Signed: Josh Mahan MD at 18:29 EDT , Service support , Current Medications Acetaminophen (Tylenol) 650 mg PO Q6H PRN PRN PRN Reason: Pain or Fever Last Admin: 01/13/20 00:52 Dose: 650 mg Documented by: Albuterol Sulfate (Ventolin Aerosols) 2.5 mg INHALATION Q4H PRN PRN PRN Reason: SOB &/OR WHEEZING Albuterol Sulfate (Ventolin Aerosols) 2.5 mg INHALATION Q6HWA.RT [facility] Last Admin: 01/13/20 06:45 Dose: 2.5 mg Documented by: Atorvastatin Calcium (Lipitor) 20 mg PO QHS FAYE Last Admin: 01/12/20 22:22 Dose: 20 mg Documented by: Budesonide (Pulmicort Aerosol) 0.5 mg INHALATION Q12H.RT [facility] Last Admin: 01/13/20 06:45 Dose: 0.5 mg Documented by: Duloxetine HCl (Cymbalta) 20 mg PO DAILY FAYE Folic Acid (Folic Acid) 1 mg PO DAILY@0800 [facility] Sodium Chloride () 1,000 mls @ 125 mls/hr IV .Q8H [facility] Last Admin: 01/13/20 04:36 Dose: 125 mls/hr Documented by: Norepinephrine Bitartrate 8 mg (/ Sodium Chloride) 250 mls @ 9.375 mls/hr CONT INF .[id number] FAYE; Protocol Last Titration: 01/13/20 00:50 Dose: 0 mcg/min, 0 mls/hr Documented by: Sodium Chloride () 250 mls @ 15 mls/hr IV .[id number] PRN PRN Reason: Saline Flush Sodium Chloride () 250 mls @ 15 mls/hr IV .[id number] PRN PRN Reason: Additional IVPB Infusion Lactated Ringer's () 1,000 mls @ 999 mls/hr IV .Q1H1M FAYE Stop: 01/13/20 07:45 Levothyroxine Sodium (Synthroid) 175 mcg PO DAILY@0600 FAYE Last Admin: 01/13/20 05:15 Dose: 175 mcg Documented by: Nystatin (Mycostatin Powder) 1 applic TOPICAL TID PRN; Protocol PRN Reason: skin irritation Pyridoxine HCl (Vitamin B-6) 100 mg PO DAILY [facility] Sodium Chloride ([place] Nasal [place]) 2 spray NASAL TID PRN PRN PRN Reason: NASAL DRYNESS Sodium Chloride () 10 - 40 ml IV UD PRN PRN Reason: SALINE FLUSH Sulfasalazine (Azulfidine) 1,000 mg PO BID [facility] Last Admin: 01/12/20 22:22 Dose: 1,000 mg Documented by: Thiamine HCl (Vitamin B1) 100 mg PO DAILY [facility] Warfarin Sodium (Coumadin (Pbkc)) 5 mg PO DAILY@1700 [facility] Assessment/Plan Active and Suspected Problems (Last Reviewed 09/22/19 @ 14:24 by JUAN Cárdenas) Hypotension (Acute) Acute kidney injury (Acute) RECOMMENDATIONS: 1. Okay to stop continuous supplemental IV fluids. 2. Continue to withhold antihypertensives. 3. Echocardiogram is pending. 4. Wean supplemental oxygen to maintain saturations at or above 90%. 5. Encourage incentive spirometer use and mobilize patient as tolerated. 6. Continue home BiPAP therapy with naps and nightly. IMPRESSIONS: 1. Hypotension Appears to be medication induced and related to her currently prescribed anti hypertensive regimen. Low clinical index of suspicion for underlying infectious etiology. The patient has been adequately volume resuscitated and appears to be responding to fluids from a hemodynamic perspective. No vasopressors were ever required. Recommend continuing to hold antihypertensives. These can be slowly reintroduced at reduced dosages, once the patient's hemodynamic status has imp roved. 2. Acute on chronic kidney disease Potentially prerenal in etiology and related to hypotension. The patient did receive supplemental IV fluids with subsequent improvement in hemodynamics. Continue to hold nephrotoxic medications for now. Nephrology consultation is pending. 3. History of obstructive sleep apnea Continue nocturnal BiPAP therapy per home regimen. 4. Heart failure with preserved ejection fraction/hypothyroidism/COPD/morbid obesity Complicates care, management, recovery and prognosis. Continue to hold Lasix for now. Continue bronchodilators and scheduled budesonide. Physical therapy to evaluate the patient. This note was generated with [employer] software. It may contain incorrect words, spelling, and punctuation that were not noted in checking the note before signing. Inpatient E&M: 00429 Init Hosp L3
[2020-01-13] MEDS: Lactated Ringers 1,000 ML 999 ML IV (06:54)
[2020-01-13] MEDS: 0.9% Saline Lock 10 ML Syringe IV (06:54)
[2020-01-13 07:43] LABS: AST(SGOT) 22 U/L (15-37); Alanine Aminotransfer ALT/SGPT 13 U/L (13-56); Albumin, Serum 2.7 g/dL (3.2-5.0); Alkaline Phosphatase 60 U/L (45-117); Globulin 2.9 g/dL (2.2-4.2); Protein, Total 5.6 g/dL (6.4-8.2)
[2020-01-13 08:00] LABS: Lactic Acid 1.1 mmol/L (0.4-1.9)
[2020-01-13] MEDS: Folic Acid 1 MG Tablet PO (08:12)
[2020-01-13] MEDS: Pyridoxine HCl 50 MG Tablet 100 MG PO (08:12)
[2020-01-13] MEDS: DULoxetine Hcl 20 MG Capsule PO (08:12)
[2020-01-13] MEDS: sulfaSALAzine 500 MG Tablet 1000 MG PO ×2 (08:12→21:31)
[2020-01-13] MEDS: Thiamine Hydrochloride 100 MG Tablet PO (08:13)
--- NOTE | 2020-01-13 08:23 | RAD_ITS ---
STUDY: X-RAY CHEST REASON FOR EXAM: Female, 79 years old. RESPIRATORY INSUFFICIENCY TECHNIQUE: Single AP portable view of the chest. COMPARISON: Comparison is made with prior examination of January 12, 2020. FINDINGS: EKG electrodes are seen. Mild residual increased markings at the lung bases. There has been improvement as compared to prior study. There is no demonstrated pleural abnormality. There is mild cardiac enlargement. Normal mediastinum and antwon. Normal visualized pulmonary arteries. There is atherosclerotic calcification of the aortic arch with tortuosity. There are diffuse degenerative changes of the visualized thoracic spine. Normal visualized ribs, clavicles, and shoulders. There is no demonstrated abnormality of the visualized soft tissue structures of the upper abdomen. RAD/Chest 1 View (Portable) IMPRESSION: Mild residual changes at the lung bases overall there has been improved aeration. Electronically Signed: Dionisio Mora, at 12:47 EDT , Service support ,
--- NOTE | 2020-01-13 09:50 | PN_ITS ---
Patient Problems: Active and Suspected Problems (Last Reviewed 09/22/19 @ 14:24 by JUAN Cárdenas) Hypotension (Acute) Acute kidney injury (Acute) Subjective: Patient seen and examined this morning. She has been managed for hypotension and AK I. She was sitting up comfortably eating breakfast. She denies any lightheadedness or dizziness, palpitations, chest pain, nausea vomiting or diarrhea. Review of systems otherwise negative. Labs and vitals reviewed. She still remains hypotensive this morning with blood pressure of 96/49. Creatinine is trended up to 2.87 from 2.8 on admission. Initial potassium was 5.6 on admission but is now down to 5. Of note: BNP is elevated at 418. Vitals/I&O's: Vital Signs Temp Pulse Resp BP Pulse Ox 98 F 80 76 H 96/49 L 94 01/13/20 07:54 01/13/20 09:00 01/13/20 09:00 01/13/20 09:00 01/13/20 09:00 Oxygen Flow Rate (L/min) 3 Oxygen Delivery Method Nasal Cannula Weight: 296 lb 8.348 oz Body Mass Index (BMI) 51.0 Intake and Output for Last 24 Hours 01/11/20 01/12/20 01/13/20 23:59 23:59 23:59 Intake Total 1999 3528.28 / 3528.28 Output Total 300 / 300 Balance 1999 3228.28 / 3228.28 General: Alert, Oriented x3, Cooperative, - - super morbid obesity HEENT: Atraumatic, PERRLA, EOMI, Normocephalic Oral: Moist Mucosa Neck: Supple, No JVD, Negative Carotid Bruits Lungs: Clear to auscultation, Normal air movement, No rhonchi, No wheeze, No rales Cardiovascular: Regular rate, Regular Rhythm, Normal S1, Normal S2, No murmurs Abdomen: Bowel Sounds Present, Soft, Non Tender, Non-Distended, No Hepato- splenomegaly Extremities: No clubbing, No cyanosis, No edema, Capillary Refill Less than 3 Seconds Skin: No rashes, No breakdown Musculoskeletal: No Tenderness to Palpation of Joints or Extremities Lymphatic: No Cervical, Supraclavicular, or Inguinal Adenopathy Neurological: Cranial nerves II-XII grossly intact, Neuro grossly intact, Motor Exam 5/5 strength throughout Psych/Mental Status: Normal Affect, Appropriate, Alert and oriented to time, place, person, mood and affect Laboratory Results 01/12/20 14:55: WBC 10.2, RBC 3.53 L, Hgb 11.6 L, Hct 38.4, MCV 108.8 H, MCH 32.9 H, MCHC 30.2 L, RDW Std Deviation 52.9 H, RDW Coeff of Sina 13.2, Plt Count 138 L, MPV 9.5, Immature Gran % (Auto) 0.500, Neut % (Auto) 83.9 H, Lymph % (Auto) 7.9 L, [place] % (Auto) 6.6, Eos % (Auto) 0.8, Baso % (Auto) 0.3, Absolute Neuts (auto) 8.5 H, Absolute Lymphs (auto) 0.80 L, Nucleated RBC % 0 01/12/20 14:55: Sodium 137, Potassium 5.6 H, Chloride 101, Carbon Dioxide 29.0, Anion Gap 7, BUN 71 H, Creatinine 2.80 H, Estim Creat Clear Calc 13.48, Est GFR (MDRD) Af Amer 21 L, Est GFR (MDRD) Non-Af 17 L, BUN/Creatinine Ratio 25.4 H, Glucose 93, Calcium 9.0 01/12/20 15:43: PT 16.8 H, INR 1.4 01/12/20 21:45: Troponin I < 0.015 01/13/20 00:50: Troponin I < 0.015 01/13/20 03:50: WBC 8.4, RBC 2.94 L, Hgb 9.8 L, Hct 32.1 L, MCV 109.2 H, MCH 33.3 H, MCHC 30.5 L, RDW Std Deviation 53.8 H, RDW Coeff of Sina 13.2, Plt Count 116 L, MPV 9.3, Immature Gran % (Auto) 0.400, Neut % (Auto) 74.3 H, Lymph % (Auto) 16.1 L, [place] % (Auto) 7.3, Eos % (Auto) 1.7, Baso % (Auto) 0.2, Absolute Neuts (auto) 6.3, Absolute Lymphs (auto) 1.35, Nucleated RBC % 0 01/13/20 03:50: PT 18.0 H, INR 1.5 01/13/20 03:50: Sodium 139, Potassium 5.0, Chloride 108 H, Carbon Dioxide 25.0, Anion Gap 6, BUN 69 H, Creatinine 2.87 H, Estim Creat Clear Calc 13.15, Est GFR (MDRD) Af Amer 20 L, Est GFR (MDRD) Non-Af 17 L, BUN/Creatinine Ratio 24.0 H, Glucose 101, Calcium 7.9 L, TSH 1.72 01/13/20 03:50: Troponin I < 0.015 01/13/20 03:50: Total Bilirubin 0.40, Direct Bilirubin 0.10, AST 22, ALT 13, Al kaline Phosphatase 60, Total Protein 5.6 L, Albumin 2.7 L, Globulin 2.9 01/13/20 03:50: B-Natriuretic Peptide 418.0 H 01/13/20 07:26: Lactic Acid 1.[address] 01/12/20 17:32 IMPRESSION: Normal unenhanced CT scan of the brain. Electronically Signed: Josh Mahan MD at 18:29 EDT , Service support , Current Medications Acetaminophen (Tylenol) 650 mg PO Q6H PRN PRN PRN Reason: Pain or Fever Last Admin: 01/13/20 08:11 Dose: 650 mg Documented by: Albuterol Sulfate (Ventolin Aerosols) 2.5 mg INHALATION Q4H PRN PRN PRN Reason: SOB &/OR WHEEZING Albuterol Sulfate (Ventolin Aerosols) 2.5 mg INHALATION Q6HWA.RT [facility] Last Admin: 01/13/20 06:45 Dose: 2.5 mg Documented by: Atorvastatin Calcium (Lipitor) 20 mg PO QHS [facility] Last Admin: 01/12/20 22:22 Dose: 20 mg Documented by: Budesonide (Pulmicort Aerosol) 0.5 mg INHALATION Q12H.RT [facility] Last Admin: 01/13/20 06:45 Dose: 0.5 mg Documented by: Duloxetine HCl (Cymbalta) 20 mg PO DAILY [facility] Last Admin: 01/13/20 08:12 Dose: 20 mg Documented by: Folic Acid (Folic Acid) 1 mg PO DAILY@0800 [facility] Last Admin: 01/13/20 08:12 Dose: 1 mg Documented by: Norepinephrine Bitartrate 8 mg (/ Sodium Chloride) 250 mls @ 9.375 mls/hr CONT INF .[id number] [facility]; Protocol Last Titration: 01/13/20 00:50 Dose: 0 mcg/min, 0 mls/hr Documented by: Sodium Chloride () 250 mls @ 15 mls/hr IV .[id number] PRN PRN Reason: Saline Flush Sodium Chloride () 250 mls @ 15 mls/hr IV .[id number] PRN PRN Reason: Additional IVPB Infusion Levothyroxine Sodium (Synthroid) 175 mcg PO DAILY@0600 [facility] Last Admin: 01/13/20 05:15 Dose: 175 mcg Documented by: Nystatin (Mycostatin Powder) 1 applic TOPICAL TID PRN; Protocol PRN Reason: skin irritation Pyridoxine HCl (Vitamin B-6) 100 mg PO DAILY [facility] Last Admin: 01/13/20 08:12 Dose: 100 mg Documented by: Sodium Chloride ([place] Nasal [place]) 2 spray NASAL TID PRN PRN PRN Reason: NASAL DRYNESS Sodium Chloride () 10 - 40 ml IV UD PRN PRN Reason: SALINE FLUSH Last Admin: 01/13/20 06:54 Dose: 40 ml Documented by: Sulfasalazine (Azulfidine) 1,000 mg PO BID [facility] Last Admin: 01/13/20 08:12 Dose: 1,000 mg Documented by: Thiamine HCl (Vitamin B1) 100 mg PO DAILY [facility] Last Admin: 01/13/20 08:13 Dose: 100 mg Documented by: Warfarin Sodium (Coumadin (Pbkc)) 5 mg PO DAILY@1700 [facility] STROKE Vital Signs/Narrative: Vital Signs Temp Pulse Resp BP Pulse Ox 01/13/20 09:00 80 76 H 96/49 L 94 01/13/20 07:54 98 F 73 18 105/82 H 93 01/13/20 07:51 73 01/13/20 07:00 65 20 H 105/82 H 92 01/13/20 06:40 67 84/61 L 01/13/20 06:14 65/30 L 01/13/20 06:12 69/25 L 01/13/20 06:11 74/39 L 01/13/20 06:00 61 19 H 79/42 L 93 Medical Necessity - Tobacco Use Smoking Status: Former smoker Tobacco Use: Cigarettes Assessment/Plan All Active Problems (Last Reviewed 09/22/19 @ 14:24 by JUAN Cárdenas) Hypotension (Acute) Acute kidney injury (Acute) Carpal tunnel syndrome (Resolved) Fall (Resolved) Fracture of right radius (Resolved) 1. Hypotension, likely medication induced * BP still low, at 96/49 this morning * says her dose of diovan was recently reduced to 80mg from 320mg by her PCP due to hypotension * also on Ultram, which can exacerbate hypotension * will cotinue hydrating with IVF NS * continue holding losartan, meloxicam, lasix and HCTZ * 2. ASHANTI on CKD 3 * CR is up to 2.87, from 2.8 yesterday * UA pending. WIll check FeURea and get renal USG * consult nephrology if Cr trends up some more * likely due to hypotension * 3. Acute on chronic HFpEF * BNP is 418 * CXR pending today * 2D echo(04/05/18): EF of 65%, with stage 1 diastolic dysfunction and no regional wall motion abnormalities * will get repeat 2D echo * cannot be aggressive with diuresis o/a of hypotension * will order 2D echo * 4. Hypothyroidism: On Synthroid. TSH- 5. History of COPD: Not in exacerbation. On breathing treatments with bronchodilators. 6. History of pulmonary fibrosis: Stable. 7. History of DVT: On Coumadin. IVC in place. INR is 1.5 today. We will continue. Target INR is between 2 and 3. 8. CHAI: On BiPAP nightly. DVT prophylaxis: on coumadin. Inpatient E&M: [id number] [facility] L3
[2020-01-13 10:13] LABS: Mucous, Urine 0 SEEN /hpf (<or=2+); Red Blood Cells-Urine 0 SEEN /hpf (0-5)
[2020-01-13 10:15] LABS: Color, Urine Yellow (Yellow); Glucose, Dipstick Normal (Normal); Ketone-Dipstick Negative (Negative); Leukocyte Esterase-Dipstick 25 /ul (Negative); Nitrite-Dipstick Negative (Negative); Occult Blood-Urine 10 /ul (Negative); Protein-Dipstick Negative (Negative); Specific Gravity, Urine 1.015 (1.002-1.030); Urine Bilirubin Dipstick Negative (Negative); Urine Clarity Sl. Cloudy (Clear); Urine Urobilinogen Normal (Normal)
--- NOTE | 2020-01-13 10:20 | US_ITS ---
STUDY: RENAL ULTRASOUND - COMPLETE REASON FOR EXAM: Female, 79 years old. ASHANTI TECHNIQUE: Ultrasound evaluation of the kidneys was performed with real-time and static germain-scale imaging. COMPARISON: None. FINDINGS: RIGHT KIDNEY: Normal location of the right kidney, which is normal in size. The right kidney measures 10.5 x 4.6 x 4.2 cm. There is a normal cortex of the right kidney. The renal cortex measures 1.6 cm. There is no right renal mass or cyst. There are no right renal calculi. There is no right hydronephrosis. DISTAL RIGHT URETER: There is non-visualization of the distal right ureter. There is no demonstrated right ureterovesical junction calculus. There is no demonstrated right ureteral jet. LEFT KIDNEY: Normal location of the left kidney, which is normal in size. The left kidney measures 11.2 x 4.4 x 4.3 cm. There is a normal cortex of the left kidney. The renal cortex measures 0.9 cm. There are 2 left renal cysts, the larger measuring 4.1 x 4.3 x 4.2 cm. There are no left renal calculi. There is no left hydronephrosis. DISTAL LEFT URETER: There is non-visualization of the distal left ureter. There is no demonstrated left ureterovesical junction calculus. There is no demonstrated left ureteral jet. BLADDER: The distended urinary bladder has a volume of 199 ml. . There is a normal wall thickness of the distended urinary bladder. Bladder wall thickness is 5 mm. There is no demonstrated mass within the urinary bladder. There are no demonstrated bladder calculi. US/Kidney and Bladder IMPRESSION: There are 2 left renal cysts, the larger measuring 4.1 x 4.3 x 4.2 cm. The right kidney appears normal. Electronically Signed: Josh Mahan MD at 20:35 EDT , Service support ,
[2020-01-13 10:30] LABS: Bacteria 3+ /hpf (None Seen); Squamous Epithelial Cells - UA 0-5 SEEN /hpf (5-10); White Blood Cells 0-5 SEEN /hpf (0-5)
[2020-01-13 10:45] LABS: Urea Nitrogen, Urine 349 mg/dL (NO RANGE EST.)
[2020-01-13 11:45] LABS: Bedside Glucose 107 mg/dL (70-110)
--- NOTE | 2020-01-13 13:40 | CASEMGMT ---
RN CLAUDIA [employer]AC[employer] MEMBER CM to room to meet with patient for initial transition planning/care coordination assessment. RN CLAUDIA introduced self and role at [facility]. Pt voices understanding and consents to assessment at this time. Pt sitting up in recliner in no distress at this time. Pt is A/O at this time and answers all questions appropriately. Care providers, pharmacy, and demographics verified/updated at this time. PCP: Dr Jovani Mcconnell Specialists: Dr Roldan--cardiology, Dr Orellana--pulmonology Preferred Pharmacy: [facility] Insurance: [employer] (formerly [employer]) Prescription Benefit: Yes Living Will/HPOA: Has both LW and Healthcare POA, who is her daughter, Umm Banuelos. was listed as primary POA, but pt states he just in December. Records of both LW and POA are on file @ [facility]. LNOK: DaughterUmm Living Arrangements: Lives alone in 2-story home w/2 steps to enter. FFSU. States is independent w/ADL's. Granddaughter, Maame, can assist if needed and may be moving in with pt when she returns home to assist. Pt states Maame assists now with grocery-shopping and either Maame or Umm loivares assist w/home mgmt tasks when needed. Transportation: Pt states drives self and states no transportation concerns at this time. Either Maame or Umm will take her home @ D/C DME: has the following DME: shower chair, rails/grab bars, hand held shower, BIPAP w/O2 bleed in @ HS @ 3 L/M through [facility], walker, rollator. Has a W/C but it is old and does not work well, but pt states she does not use it now and does not need another one at this time. Pt states she would like info on Medical alert button. Provided list of local companies that provide these. Pt states she also wishes to get a pulse ox. She was made aware this is not covered through insurance and could be purchased at local drug store or on-line. HHC/SNF: Hx of being on TCU. No history of HHC. PT/OT evals completed--anticipate pt will be able to return home but d/t BP still low, unable to determine at this time. Pt wishes to be able to return home w/HHC. Given list of local [facility] agencies and her 1st preference is [facility]. Call placed to Consuelo @ [facility] and message left w/referral. Awaiting return call/acceptance. Pt states if SNF is recommended/needed @ D/C her 1st preference is [facility]. She states if she would be unable to go to TCU, then she wishes to return home. She does not want to go to any other SNF. Pt wishes to return home and states has no concerns with going home at time of discharge. CM to follow for further discharge planning/needs. Pt voices no further concerns/needs at this time. Advised pt to ask for CM if any further questions/concerns/needs arise. Voices understanding. PLAN: Ptt wishes to return Home w/[facility]. Referral made. Awaiting acceptance. Follow PT/OT. If SNF recommended/needed, TCU is 1st preference. Mary BARNHARTN RN CM
--- NOTE | 2020-01-13 13:54 | PCM.CONS.R ---
Consultation - Renal PCP/ Referring MD: Requesting physician: [] Primary care physician: Jovani Mcconnell MD - History of Present Illness History of Present Illness: The patient is a 79 year old F PMH of CHAI, Pulmonary fibrosis, CKD stage 3, DD , PE Pt was not able to get out of her bed even with assistant executive housekeeper yesterday morning. Pt took all her BP meds yesterday morning before this happened EMS was called. EMS was found her BP is low and was brought to ED BP was found to be low at 70/40. in ED she received IV NS boluses . BP remains low and patient was admitted to ICU Renal team was consulted for ASHANTI. SCr is up to 2.8 mg/dL. All patient's BP meds were held including diuretics and valsartan Pt had 700 cc UOP so far today On NC at 2 l/m ROS: 12 systems review is negative[] - Allergies Allergies: Allergies erythromycin base Allergy (Mild, Verified 01/12/20 14:45) unknown aspirin [From Robaxisal] Allergy (Verified 01/12/20 14:45) Unknown digoxin [From Lanoxin] Allergy (Verified 01/12/20 14:45) Unknown etodolac [From Lodine] Allergy (Verified 01/12/20 14:45) Unknown ibuprofen [From Motrin] Allergy (Verified 01/12/20 14:45) Unknown meclizine HCl [From Antivert] Allergy (Verified 01/12/20 14:45) Unknown meclofenamate sodium [From Meclomen] Allergy (Verified 01/12/20 14:45) Unknown methocarbamol [From Robaxisal] Allergy (Verified 01/12/20 14:45) Unknown nabumetone [From Relafen] Allergy (Verified 01/12/20 14:45) Unknown PT STATES IT'S BEEN SO LONG I CAN'T REMEMBER WHAT THEY DO TO ME naproxen Allergy (Verified 01/12/20 14:45) Unknown sulfamethoxazole [From Bactrim] Allergy (Verified 01/12/20 14:45) Unknown trimethoprim [From Bactrim] Allergy (Verified 01/12/20 14:45) Unknown Penicillins Adverse Reaction (Intermediate, Verified 01/12/20 17:00) Diarrhea - Current Medications Current Medications: Current Medications Acetaminophen (Tylenol) 650 mg PO Q6H PRN PRN PRN Reason: Pain or Fever Last Admin: 01/13/20 08:11 Dose: 650 mg Documented by: Albuterol Sulfate (Ventolin Aerosols) 2.5 mg INHALATION Q4H PRN PRN PRN Reason: SOB &/OR WHEEZING Albuterol Sulfate (Ventolin Aerosols) 2.5 mg INHALATION Q6HWA.RT [facility] Last Admin: 01/13/20 13:24 Dose: 2.5 mg Documented by: Atorvastatin Calcium (Lipitor) 20 mg PO QHS [facility] Last Admin: 01/12/20 22:22 Dose: 20 mg Documented by: Budesonide (Pulmicort Aerosol) 0.5 mg INHALATION Q12H.RT [facility] Last Admin: 01/13/20 06:45 Dose: 0.5 mg Documented by: Duloxetine HCl (Cymbalta) 20 mg PO DAILY [facility] Last Admin: 01/13/20 08:12 Dose: 20 mg Documented by: Folic Acid (Folic Acid) 1 mg PO DAILY@0800 [facility] Last Admin: 01/13/20 08:12 Dose: 1 mg Documented by: Norepinephrine Bitartrate 8 mg (/ Sodium Chloride) 250 mls @ 9.375 mls/hr CONT INF .[id number] [facility]; Protocol Last Titration: 01/13/20 00:50 Dose: 0 mcg/min, 0 mls/hr Documented by: Sodium Chloride () 250 mls @ 15 mls/hr IV .[id number] PRN PRN Reason: Saline Flush Sodium Chloride () 250 mls @ 15 mls/hr IV .[id number] PRN PRN Reason: Additional IVPB Infusion Levothyroxine Sodium (Synthroid) 175 mcg PO DAILY@0600 [facility] Last Admin: 01/13/20 05:15 Dose: 175 mcg Documented by: Nystatin (Mycostatin Powder) 1 applic TOPICAL TID PRN; Protocol PRN Reason: skin irritation Pyridoxine HCl (Vitamin B-6) 100 mg PO DAILY [facility] Last Admin: 01/13/20 08:12 Dose: 100 mg Documented by: Sodium Chloride (Starr Nasal [place]) 2 spray NASAL TID PRN PRN PRN Reason: NASAL DRYNESS Sodium Chloride () 10 - 40 ml IV UD PRN PRN Reason: SALINE FLUSH Last Admin: 01/13/20 06:54 Dose: 40 ml Documented by: Sulfasalazine (Azulfidine) 1,000 mg PO BID [facility] Last Admin: 01/13/20 08:12 Dose: 1,000 mg Documented by: Thiamine HCl (Vitamin B1) 100 mg PO DAILY [facility] Last Admin: 01/13/20 08:13 Dose: 100 mg Documented by: Warfarin Sodium (Coumadin (Pbkc)) 5 mg PO DAILY@1700 [facility] - Past Medical History Past Medical History (Chronic Problems): Chronic Problems (Last Reviewed 09/22/19 @ 14:24 by JUAN Cárdenas) Secondary pulmonary arterial hypertension (Chronic) Pulmonary emboli (Chronic) Essential hypertension (Chronic) Hyperlipidemia (Chronic) - Past Surgical History Surgical History: appendectomy, cholecystectomy, total knee arthroplasty - Left., - - Social History Smoking Status: Former smoker Alcohol: None Drugs: None - Family History Maternal Family History: Family History (Last Reviewed 01/12/20 @ 17:35 by JUAN Rowe) Father Prostate cancer Brother Heart disease Mother Parkinsons disease History Items: No pertinent history Paternal Family History: Family History (Last Reviewed 01/12/20 @ 17:35 by JUAN Rowe) Father Prostate cancer Brother Heart disease Mother Parkinsons disease History Items: No pertinent history Patient Problems: Active and Suspected Problems (Last Reviewed 09/22/19 @ 14:24 by JUAN Cárdenas) Hypotension (Acute) Acute kidney injury (Acute) - Physical Exam Vitals/I&O's: Vital Signs Temp Pulse Resp BP Pulse Ox 99 F 120 H 22 H 123/90 H 94 01/13/20 12:00 01/13/20 12:00 01/13/20 12:00 01/13/20 12:00 01/13/20 12:00 Oxygen Flow Rate (L/min) 3.5 Oxygen Delivery Method Nasal Cannula Weight: 134.5 kg Body Mass Index (BMI) 51.0 Intake and Output for Last 24 Hours 01/11/20 01/12/20 01/13/20 23:59 23:59 23:59 Intake Total 1999 3778.28 / 3778.28 Output Total 700 / 700 Balance 1999 3078.28 / 3078.28 General: Alert, Oriented x3 HEENT: Atraumatic Oral: Moist Mucosa Neck: Supple, No JVD Lungs: - - B/L lungs fine crackles Cardiovascular: Regular rate, Regular Rhythm, Normal S1, Normal S2 Abdomen: Bowel Sounds Present, Soft, Non Tender, Non-Distended Extremities: No clubbing, No cyanosis, No edema Skin: No rashes Musculoskeletal: No Tenderness to Palpation of Joints or Extremities Lymphatic: No Cervical, Supraclavicular, or Inguinal Adenopathy Neurological: Cranial nerves II-XII grossly intact, Neuro grossly intact Psych/Mental Status: Appropriate Laboratory Results 01/12/20 14:55: WBC 10.2, RBC 3.53 L, Hgb 11.6 L, Hct 38.4, MCV 108.8 H, MCH 32.9 H, MCHC 30.2 L, RDW Std Deviation 52.9 H, RDW Coeff of Sina 13.2, Plt Count 138 L, MPV 9.5, Immature Gran % (Auto) 0.500, Neut % (Auto) 83.9 H, Lymph % (Auto) 7.9 L, [place] % (Auto) 6.6, Eos % (Auto) 0.8, Baso % (Auto) 0.3, Absolute Neuts (auto) 8.5 H, Absolute Lymphs (auto) 0.80 L, Nucleated RBC % 0 01/12/20 14:55: Sodium 137, Potassium 5.6 H, Chloride 101, Carbon Dioxide 29.0, Anion Gap 7, BUN 71 H, Creatinine 2.80 H, Estim Creat Clear Calc 13.48, Est GFR (MDRD) Af Amer 21 L, Est GFR (MDRD) Non-Af 17 L, BUN/Creatinine Ratio 25.4 H, Glucose 93, Calcium 9.0 01/12/20 15:43: PT 16.8 H, INR 1.4 01/12/20 21:45: Troponin I < 0.015 01/13/20 00:50: Troponin I < 0.015 01/13/20 03:50: WBC 8.4, RBC 2.94 L, Hgb 9.8 L, Hct 32.1 L, MCV 109.2 H, MCH 33.3 H, MCHC 30.5 L, RDW Std Deviation 53.8 H, RDW Coeff of Sina 13.2, Plt Count 116 L, MPV 9.3, Immature Gran % (Auto) 0.400, Neut % (Auto) 74.3 H, Lymph % (Auto) 16.1 L, [place] % (Auto) 7.3, Eos % (Auto) 1.7, Baso % (Auto) 0.2, Absolute Neuts (auto) 6.3, Absolute Lymphs (auto) 1.35, Nucleated RBC % 0 01/13/20 03:50: PT 18.0 H, INR 1.5 01/13/20 03:50: Sodium 139, Potassium 5.0, Chloride 108 H, Carbon Dioxide 25.0, Anion Gap 6, BUN 69 H, Creatinine 2.87 H, Estim Creat Clear Calc 13.15, Est GFR (MDRD) Af Amer 20 L, Est GFR (MDRD) Non-Af 17 L, BUN/Creatinine Ratio 24.0 H, Glucose 101, Calcium 7.9 L, TSH 1.72 01/13/20 03:50: Troponin I < 0.015 01/13/20 03:50: Total Bilirubin 0.40, Direct Bilirubin 0.10, AST 22, ALT 13, Alkaline Phosphatase 60, Total Protein 5.6 L, Albumin 2.7 L, Globulin 2.9 01/13/20 03:50: B-Natriuretic Peptide 418.0 H 01/13/20 07:26: Lactic Acid 1.1 01/13/20 10:00: Urine Creatinine 72.60 01/13/20 10:00: Urine Urea Nitrogen 349 01/13/20 10:00: Urine Color Yellow, Urine Clarity Sl. Cloudy, Urine pH 6.0, Ur Specific [place] 1.015, Urine Protein Negative, Urine Glucose (UA) Normal, Urine Ketones Negative, Urine Occult Blood 10 H, Urine Nitrite Negative, Urine Bilirubin Negative, Urine Urobilinogen Normal, Ur Leukocyte Esterase 25 H, Urine RBC 0 SEEN, Urine WBC 0-5 SEEN, Ur Squamous Epith Cells 0-5 SEEN, Urine Bacteria 3+, Urine Mucus 0 SEEN 01/13/20 11:37: POC Glucose 107 Current Medications Acetaminophen (Tylenol) 650 mg PO Q6H PRN PRN PRN Reason: Pain or Fever Last Admin: 01/13/20 08:11 Dose: 650 mg Documented by: Albuterol Sulfate (Ventolin Aerosols) 2.5 mg INHALATION Q4H PRN PRN PRN Reason: SOB &/OR WHEEZING Albuterol Sulfate (Ventolin Aerosols) 2.5 mg INHALATION Q6HWA.RT [facility] Last Admin: 01/13/20 13:24 Dose: 2.5 mg Documented by: Atorvastatin Calcium (Lipitor) 20 mg PO QHS [facility] Last Admin: 01/12/20 22:22 Dose: 20 mg Documented by: Budesonide (Pulmicort Aerosol) 0.5 mg INHALATION Q12H.RT [facility] Last Admin: 01/13/20 06:45 Dose: 0.5 mg Documented by: Duloxetine HCl (Cymbalta) 20 mg PO DAILY [facility] Last Admin: 01/13/20 08:12 Dose: 20 mg Documented by: Folic Acid (Folic Acid) 1 mg PO DAILY@0800 [facility] Last Admin: 01/13/20 08:12 Dose: 1 mg Documented by: Norepinephrine Bitartrate 8 mg (/ Sodium Chloride) 250 mls @ 9.375 mls/hr CONT INF .[id number] [facility]; Protocol Last Titration: 01/13/20 00:50 Dose: 0 mcg/min, 0 mls/hr Documented by: Sodium Chloride () 250 mls @ 15 mls/hr IV .[id number] PRN PRN Reason: Saline Flush Sodium Chloride () 250 mls @ 15 mls/hr IV .[id number] PRN PRN Reason: Additional IVPB Infusion Levothyroxine Sodium (Synthroid) 175 mcg PO DAILY@0600 [facility] Last Admin: 01/13/20 05:15 Dose: 175 mcg Documented by: Nystatin (Mycostatin Powder) 1 applic TOPICAL TID PRN; Protocol PRN Reason: skin irritation Pyridoxine HCl (Vitamin B-6) 100 mg PO DAILY [facility] Last Admin: 01/13/20 08:12 Dose: 100 mg Documented by: Sodium Chloride (Starr Nasal [place]) 2 spray NASAL TID PRN PRN PRN Reason: NASAL DRYNESS Sodium Chloride () 10 - 40 ml IV UD PRN PRN Reason: SALINE FLUSH Last Admin: 01/13/20 06:54 Dose: 40 ml Documented by: Sulfasalazine (Azulfidine) 1,000 mg PO BID [facility] Last Admin: 01/13/20 08:12 Dose: 1,000 mg Documented by: Thiamine HCl (Vitamin B1) 100 mg PO DAILY [facility] Last Admin: 01/13/20 08:13 Dose: 100 mg Documented by: Warfarin Sodium (Coumadin (Pbkc)) 5 mg PO DAILY@1700 [facility] Assessment/Plan All Active Problems (Last Reviewed 09/22/19 @ 14:24 by JUAN Cárdenas) Hypotension (Acute) Acute kidney injury (Acute) Carpal tunnel syndrome (Resolved) Fall (Resolved) Fracture of right radius (Resolved) 1-ASHANTI on CKD stage 3. UA is benign. Baseline SCr seems around 1.8-2.0 mg/dL ASHANTI is likely ATN from low BP SCr is stable at 2.8 mg/dL for 24 hours. No oliguric Continue holding ARB, lasix and HCTZ Keep MAP > 65 No need for DIESEL LOCOMOTIVE ENGINEER Monitor RFP and UOP 2- Hyperkalemia: likely from ASHANTI and being on ARB Resolved. K is 5.0 this am 3- Hypotension : might be medication induced Please repeat Echo to evaluate EF and pulmonary HTN. If repeated Echo showed worsening pulmonary HTN, then low BP is likely from decreased preload Continue holding home BP meds Keep MAP > 65 Thank you for the consult. Renal team will continue to follow Please call if any question at [phone] d/w Dr. Prabhakar Maher MD
[2020-01-13 16:30] LABS: Bedside Glucose 114 mg/dL (70-110)
[2020-01-13] MEDS: Atorvastatin Calcium 20 MG Tablet PO (21:31)
[2020-01-13] MEDS: Nystatin Powder 15gm Bottle 1 APPLIC TOPICAL (21:31)
--- NOTE | 2020-01-13 21:50 | CPS ---
O2 BLEED IN ADDED TO PT'S HOME CPAP UNIT
[2020-01-14] VITALS (19 sets, daily range): BP systolic 88–158; BP diastolic 52–88; PULSE 63–95; RESP 14–22; TEMP 36.6–37.1; O2SAT 90–96
--- NOTE | 2020-01-14 01:05 | NURSING ---
pts pulse ox dropping, pt is a deep sleep w periods of apnea w the cpap on, pt woke up, gasped from her period of apnea and her o2 went back up to 96%. o2 increased to 4l bled in.
[2020-01-14 05:45] LABS: Absolute Lymphocyte Count 1.19 X10^3/uL (0.83-4.51); Basophil# 0.04 X10^3/uL; Basophil% 0.6 % (0-1); Eosinophil# 0.16 X10^3/uL; Eosinophils% 2.3 % (0-5); Hematocrit 32.3 % (37-47); Hemoglobin 9.9 g/dL (12.0-15.0); Lymphocyte # 1.19 X10^3/ul (4.0); Mean Corp Hgb Conc 30.7 g/dL (32-36); Mean Corpuscular Hgb 33.2 pg (27.0-32.0); Mean Corpuscular Volume 108.4 fL (81-99); Mean Platelet Vol. 9.3 fl (6.2-12.0); Monocyte% 8.5 % (0-10); NRBC Flagged by Analyzer 0 % (0-5); Neutrophil % 71.2 % (47-70); Platelet Count 119 K/mm3 (150-450); RBC Distribution Width CV 13.1 % (11.6-14.6); RBC Distribution Width SD 51.9 fl (35.1-43.9); Red Blood Count 2.98 M/mm3 (4.2-5.4)
[2020-01-14 05:54] LABS: International Normalized Ratio 1.3; Prothrombin Time (Protime)PT. 15.9 SECONDS (11.7-14.9)
[2020-01-14] MEDS: Levothyroxine 175 MCG Tablet PO (06:16)
--- NOTE | 2020-01-14 06:23 | PCM.PN.INT ---
Subjective: The patient was seen and examined at the bedside this morning. Events from the last 24 hours have been reviewed. The patient is currently afebrile, hemodynamically stable and maintaining appropriate oxygen saturations on 3 L/min via nasal cannula. The patient was maintained on BiPAP 16/ last night. She is currently documented to be overall net +3.2 L for the hospital admission. Creatinine is improved this morning to 1.55. Objective: The patient's most recent lab work, culture data and imaging studies have all been personally reviewed. Surface echocardiogram revealed normal LV size and function with an ejection fraction of 60%. There was evidence of global RV systolic dysfunction with a right ventricular systolic pressure estimated to be 39 mmHg. Lower extremity Dopplers were negative for the presence of a DVT. General: Alert, Cooperative HEENT: Atraumatic, Normocephalic Oral: No Gingival or Mucosal Lesions/ Ulcerations Neck: Supple, No Nodes, Trachea Midline Lungs: No rhonchi, No wheeze, No rales, Diminished Cardiovascular: Regular rate, Regular Rhythm, Normal S1, Normal S2 Abdomen: Bowel Sounds Present, Soft, Non Tender, Obese Extremities: No clubbing, No cyanosis Skin: No breakdown Musculoskeletal: No Tenderness to Palpation of Joints or Extremities Lymphatic: No Cervical, Supraclavicular, or Inguinal Adenopathy Neurological: Cranial nerves II-XII grossly intact, Neuro grossly intact Psych/Mental Status: Normal Affect, Appropriate Vital Signs Temp Pulse Resp BP Pulse Ox 98.7 F 72 18 137/59 H 90 01/14/20 06:00 01/14/20 06:00 01/14/20 06:00 01/14/20 06:00 01/14/20 06:00 Oxygen Flow Rate (L/min) 3 Oxygen Delivery Method Nasal Cannula Weight: 297 lb 13.512 oz Body Mass Index (BMI) 51.0 Intake and Output for Last 24 Hours 01/12/20 01/13/20 01/14/20 23:59 23:59 23:59 Intake Total 1999 3978.28 / 4178.28 200 / 200 Output Total 1099 185 / 1850 Balance 1999 2878.28 / 2228.28 -1650 / -1650 Labs (Last 48 Hours) 01/12/20 01/12/20 01/12/20 14:55 14:55 15:43 WBC 10.2 RBC 3.53 L Hgb 11.6 L Hct 38.4 MCV 108.8 H MCH 32.9 H MCHC 30.2 L RDW Std Deviation 52.9 H RDW Coeff of Sina 13.2 Plt Count 138 L MPV 9.5 Immature Gran % (Auto) 0.500 Neut % (Auto) 83.9 H Lymph % (Auto) 7.9 L [place] % (Auto) 6.6 Eos % (Auto) 0.8 Baso % (Auto) 0.3 Absolute Neuts (auto) 8.5 H Absolute Lymphs (auto) 0.80 L Nucleated RBC % 0 PT 16.8 H INR 1.4 Sodium 137 Potassium 5.6 H Chloride 101 Carbon Dioxide 29.0 Anion Gap 7 BUN 71 H Creatinine 2.80 H Estim Creat Clear Calc 13.48 Est GFR (MDRD) Af Amer 21 L Est GFR (MDRD) Non-Af 17 L BUN/Creatinine Ratio 25.4 H Glucose 93 Lactic Acid Calcium 9.0 Total Bilirubin Direct Bilirubin AST ALT Alkaline Phosphatase Troponin I B-Natriuretic Peptide Total Protein Albumin Globulin TSH Urine Color Urine Clarity Urine pH Ur Specific [place] Urine Protein Urine Glucose (UA) Urine Ketones Urine Occult Blood Urine Nitrite Urine Bilirubin Urine Urobilinogen Ur Leukocyte Esterase Urine RBC Urine WBC Ur Squamous Epith Cells Urine Bacteria Urine Mucus Urine Creatinine Urine Urea Nitrogen POC Glucose 01/12/20 01/13/20 01/13/20 21:45 00:50 03:50 WBC 8.4 RBC 2.94 L Hgb 9.8 L Hct 32.1 L MCV 109.2 H MCH 33.3 H MCHC 30.5 L RDW Std Deviation 53.8 H RDW Coeff of Sina 13.2 Plt Count 116 L MPV 9.3 Immature Gran % (Auto) 0.400 Neut % (Auto) 74.3 H Lymph % (Auto) 16.1 L [place] % (Auto) 7.3 Eos % (Auto) 1.7 Baso % (Auto) 0.2 Absolute Neuts (auto) 6.3 Absolute Lymphs (auto) 1.35 Nucleated RBC % 0 PT INR Sodium Potassium Chloride Carbon Dioxide Anion Gap BUN Creatinine Estim Creat Clear Calc Est GFR (MDRD) Af Amer Est GFR (MDRD) Non-Af BUN/Creatinine Ratio Glucose Lactic Acid Calcium Total Bilirubin Direct Bilirubin AST ALT Alkaline Phosphatase Troponin I < 0.015 < 0.015 B-Natriuretic Peptide Total Protein Albumin Globulin TSH Urine Color Urine Clarity Urine pH Ur Specific [place] Urine Protein Urine Glucose (UA) Urine Ketones Urine Occult Blood Urine Nitrite Urine Bilirubin Urine Urobilinogen Ur Leukocyte Esterase Urine RBC Urine WBC Ur Squamous Epith Cells Urine Bacteria Urine Mucus Urine Creatinine Urine Urea Nitrogen POC Glucose 01/13/20 01/13/20 01/13/20 03:50 03:50 03:50 WBC RBC Hgb Hct MCV MCH MCHC RDW Std Deviation RDW Coeff of Sina Plt Count MPV Immature Gran % (Auto) Neut % (Auto) Lymph % (Auto) [place] % (Auto) Eos % (Auto) Baso % (Auto) Absolute Neuts (auto) Absolute Lymphs (auto) Nucleated RBC % PT 18.0 H INR 1.5 Sodium 139 Potassium 5.0 Chloride 108 H Carbon Dioxide 25.0 Anion Gap 6 BUN 69 H Creatinine 2.87 H Estim Creat Clear Calc 13.15 Est GFR (MDRD) Af Amer 20 L Est GFR (MDRD) Non-Af 17 L BUN/Creatinine Ratio 24.0 H Glucose 101 Lactic Acid Calcium 7.9 L Total Bilirubin Direct Bilirubin AST ALT Alkaline Phosphatase Troponin I < 0.015 B-Natriuretic Peptide Total Protein Albumin Globulin TSH 1.72 Urine Color Urine Clarity Urine pH Ur Specific [place] Urine Protein Urine Glucose (UA) Urine Ketones Urine Occult Blood Urine Nitrite Urine Bilirubin Urine Urobilinogen Ur Leukocyte Esterase Urine RBC Urine WBC Ur Squamous Epith Cells Urine Bacteria Urine Mucus Urine Creatinine Urine Urea Nitrogen POC Glucose 01/13/20 01/13/20 01/13/20 03:50 03:50 07:26 WBC RBC Hgb Hct MCV MCH MCHC RDW Std Deviation RDW Coeff of Sina Plt Count MPV Immature Gran % (Auto) Neut % (Auto) Lymph % (Auto) [place] % (Auto) Eos % (Auto) Baso % (Auto) Absolute Neuts (auto) Absolute Lymphs (auto) Nucleated RBC % PT INR Sodium Potassium Chloride Carbon Dioxide Anion Gap BUN Creatinine Estim Creat Clear Calc Est GFR (MDRD) Af Amer Est GFR (MDRD) Non-Af BUN/Creatinine Ratio Glucose Lactic Acid 1.1 Calcium Total Bilirubin 0.40 Direct Bilirubin 0.10 AST 22 ALT 13 Alkaline Phosphatase 60 Troponin I B-Natriuretic Peptide 418.0 H Total Protein 5.6 L Albumin 2.7 L Globulin 2.9 TSH Urine Color Urine Clarity Urine pH Ur Specific [place] Urine Protein Urine Glucose (UA) Urine Ketones Urine Occult Blood Urine Nitrite Urine Bilirubin Urine Urobilinogen Ur Leukocyte Esterase Urine RBC Urine WBC Ur Squamous Epith Cells Urine Bacteria Urine Mucus Urine Creatinine Urine Urea Nitrogen POC Glucose 01/13/20 01/13/20 01/13/20 10:00 10:00 10:00 WBC RBC Hgb Hct MCV MCH MCHC RDW Std Deviation RDW Coeff of Sina Plt Count MPV Immature Gran % (Auto) Neut % (Auto) Lymph % (Auto) [place] % (Auto) Eos % (Auto) Baso % (Auto) Absolute Neuts (auto) Absolute Lymphs (auto) Nucleated RBC % PT INR Sodium Potassium Chloride Carbon Dioxide Anion Gap BUN Creatinine Estim Creat Clear Calc Est GFR (MDRD) Af Amer Est GFR (MDRD) Non-Af BUN/Creatinine Ratio Glucose Lactic Acid Calcium Total Bilirubin Direct Bilirubin AST ALT Alkaline Phosphatase Troponin I B-Natriuretic Peptide Total Protein Albumin Globulin TSH Urine Color Yellow Urine Clarity Sl. Cloudy Urine pH 6.0 Ur Specific [place] 1.015 Urine Protein Negative Urine Glucose (UA) Normal Urine Ketones Negative Urine Occult Blood 10 H Urine Nitrite Negative Urine Bilirubin Negative Urine Urobilinogen Normal Ur Leukocyte Esterase 25 H Urine RBC 0 SEEN Urine WBC 0-5 SEEN Ur Squamous Epith Cells 0-5 SEEN Urine Bacteria 3+ Urine Mucus 0 SEEN Urine Creatinine 72.60 Urine Urea Nitrogen 349 POC Glucose 01/13/20 01/13/20 01/14/20 11:37 16:20 05:00 WBC 7.0 RBC 2.98 L Hgb 9.9 L Hct 32.3 L MCV 108.4 H MCH 33.2 H MCHC 30.7 L RDW Std Deviation 51.9 H RDW Coeff of Sina 13.1 Plt Count 119 L MPV 9.3 Immature Gran % (Auto) 0.400 Neut % (Auto) 71.2 H Lymph % (Auto) 17.0 L [place] % (Auto) 8.5 Eos % (Auto) 2.3 Baso % (Auto) 0.6 Absolute Neuts (auto) 5.0 Absolute Lymphs (auto) 1.19 Nucleated RBC % 0 PT INR Sodium Potassium Chloride Carbon Dioxide Anion Gap BUN Creatinine Estim Creat Clear Calc Est GFR (MDRD) Af Amer Est GFR (MDRD) Non-Af BUN/Creatinine Ratio Glucose Lactic Acid Calcium Total Bilirubin Direct Bilirubin AST ALT Alkaline Phosphatase Troponin I B-Natriuretic Peptide Total Protein Albumin Globulin TSH Urine Color Urine Clarity Urine pH Ur Specific [place] Urine Protein Urine Glucose (UA) Urine Ketones Urine Occult Blood Urine Nitrite Urine Bilirubin Urine Urobilinogen Ur Leukocyte Esterase Urine RBC Urine WBC Ur Squamous Epith Cells Urine Bacteria Urine Mucus Urine Creatinine Urine Urea Nitrogen POC Glucose 107 114 H 01/14/20 01/14/20 05:00 05:00 WBC RBC Hgb Hct MCV MCH MCHC RDW Std Deviation RDW Coeff of Sina Plt Count MPV Immature Gran % (Auto) Neut % (Auto) Lymph % (Auto) [place] % (Auto) Eos % (Auto) Baso % (Auto) Absolute Neuts (auto) Absolute Lymphs (auto) Nucleated RBC % PT 15.9 H INR 1.3 Sodium Pending Potassium Pending Chloride Pending Carbon Dioxide Pending Anion Gap Pending BUN Pending Creatinine Pending Estim Creat Clear Calc Est GFR (MDRD) Af Amer Pending Est GFR (MDRD) Non-Af Pending BUN/Creatinine Ratio Pending Glucose Pending Lactic Acid Calcium Pending Total Bilirubin Direct Bilirubin AST ALT Alkaline Phosphatase Troponin I B-Natriuretic Peptide Total Protein Albumin Globulin TSH Urine Color Urine Clarity Urine pH Ur Specific [place] Urine Protein Urine Glucose (UA) Urine Ketones Urine Occult Blood Urine Nitrite Urine Bilirubin Urine Urobilinogen Ur Leukocyte Esterase Urine RBC Urine WBC Ur Squamous Epith Cells Urine Bacteria Urine Mucus Urine Creatinine Urine Urea Nitrogen POC Glucose Clinical Impression(s) from Imaging Studies Chest X-Ray 01/12/20 15:15 IMPRESSION: Cardiomegaly. Mild increased markings at the lung bases suggestive of atelectasis. Electronically Signed: Dionisio Mora at 15:34 EDT , Service support , Brain CT 01/12/20 17:32 IMPRESSION: Normal unenhanced CT scan of the brain. Electronically Signed: Josh Mahan MD at 18:29 EDT , Service support , Chest X-Ray 01/13/20 08:23 IMPRESSION: Mild residual changes at the lung bases overall there has been improved aeration. Electronically Signed: Dionisio Mora, at 12:47 EDT , Service support , Renal Ultrasound 01/13/20 10:20 IMPRESSION: There are 2 left renal cysts, the larger measuring 4.1 x 4.3 x 4.2 cm. The right kidney appears normal. Electronically Signed: Josh Mahan MD at 20:35 EDT , Service support , Medical Necessity - Tobacco Use Smoking Status: Former smoker Tobacco Use: Cigarettes Assessment/Plan All Active Problems (Last Reviewed 09/22/19 @ 14:24 by JUAN Cárdenas) Hypotension (Acute) Acute kidney injury (Acute) Carpal tunnel syndrome (Resolved) Fall (Resolved) Fracture of right radius (Resolved) RECOMMENDATIONS: 1. Slow reintroduction of antihypertensives with dose adjustments 2. Wean supplemental oxygen to maintain saturations at or above 90%. 3. Encourage incentive spirometer use and mobilize patient as tolerated. 4. Continue home BiPAP therapy with naps and nightly. 5. Stable for transfer out of ICU. Will sign off from a critical care perspective. IMPRESSIONS: 1. Hypotension Resolved. Appears to be medication induced and related to her currently prescribed antihypertensive regimen. Low clinical index of suspicion for underlying infectious etiology. No vasopressors were ever required. Antihypertensives can be slowly reintroduced at reduced dosages. 2. Acute on chronic kidney disease Potentially prerenal in etiology and related to hypotension. The patient did receive supplemental IV fluids with subsequent improvement in hemodynamics. Continue to hold nephrotoxic medications for now. Nephrology is following. 3. History of obstructive sleep apnea Continue nocturnal BiPAP therapy per home regimen. 4. Heart failure with preserved ejection fraction/hypothyroidism/COPD/morbid obesity Complicates care, management, recovery and prognosis. Continue to hold Lasix for now. Continue bronchodilators and scheduled budesonide. Physical therapy to evaluate the patient. This note was generated with [employer] software. It may contain incorrect words, spelling, and punctuation that were not noted in checking the note before signing. Inpatient E&M: 83399 Subs Hosp L2
[2020-01-14 06:44] LABS: Anion Gap 3 (5-15); BUN 51 mg/dL (7-18); BUN/Creat Ratio 32.9 RATIO (10-20); Calcium,Total 8.3 mg/dL (8.5-10.1); Chloride 111 mmol/L (98-107); Creatinine, Serum 1.55 mg/dL (0.55-1.02); EST Glomerular Filtration Rate 34 mL/min (>60); Est Glom Filt Rate - Afr Amer 41 mL/min (>60); Estimated Creatinine Clearance 24.35 ml/min; Glucose 93 mg/dL (74-106); Potassium 4.7 mmol/L (3.5-5.1); Sodium Level 141 mmol/L (136-145)
[2020-01-14] MEDS: Budesonide Respules 0.5 MG/2 ML AMPUL.NEB. INHALATION ×2 (07:10→19:31)
[2020-01-14] MEDS: Albuterol 2.5 MG/3 ML VIAL.NEB. INHALATION ×3 (07:10→19:31)
--- NOTE | 2020-01-14 09:29 | PN_ITS ---
Patient Problems: Active and Suspected Problems (Last Reviewed 09/22/19 @ 14:24 by JUAN Cárdenas) Hypotension (Acute) Acute kidney injury (Acute) Subjective: Patient seen and examined. She had no complaints and had an uneventful night. She denied any palpitations, dizziness, nausea, vomiting, chest pain, shortness of breath or abdominal pain. Review of systems is otherwise negative. Labs and vitals reviewed. She still remains on 3L of oxygen. Cr is down to 1.55, and Hb is 9.9. Vitals/I&O's: Vital Signs Temp Pulse Resp BP Pulse Ox 98.7 F 71 18 137/59 H 90 01/14/20 06:00 01/14/20 07:10 01/14/20 07:10 01/14/20 06:00 01/14/20 06:00 Oxygen Flow Rate (L/min) 3 Oxygen Delivery Method Nasal Cannula Weight: 297 lb 13.512 oz Body Mass Index (BMI) 51.0 Intake and Output for Last 24 Hours 01/12/20 01/13/20 01/14/20 23:59 23:59 23:59 Intake Total 1999 3978.28 / 4178.28 200 / 200 Output Total 1100 / 1950 1850 / 1850 Balance 1999 2878.28 / 2228.28 -1650 / -1650 General: Alert, Oriented x3, Cooperative, - - super morbid obesity HEENT: Atraumatic, PERRLA, EOMI, Normocephalic Oral: Moist Mucosa Neck: Supple, No JVD, Negative Carotid Bruits Lungs: Normal air movement, No rhonchi, No wheeze, No rales, Cardiovascular: Regular rate, few crackles bibasally, Regular Rhythm, Normal S1, Normal S2, No murmurs Abdomen: Bowel Sounds Present, Soft, Non Tender, Non-Distended, No Hepato- splenomegaly Extremities: No clubbing, No cyanosis, No edema, Capillary Refill Less than 3 Seconds Skin: No rashes, No breakdown Musculoskeletal: No Tenderness to Palpation of Joints or Extremities Lymphatic: No Cervical, Supraclavicular, or Inguinal Adenopathy Neurological: Cranial nerves II-XII grossly intact, Neuro grossly intact, Motor Exam 5/5 strength throughout Psych/Mental Status: Normal Affect, Appropriate, Alert and oriented to time, place, person, mood and affect Laboratory Results 01/13/20 10:00: Urine Creatinine 72.60 01/13/20 10:00: Urine Urea Nitrogen 349 01/13/20 10:00: Urine Color Yellow, Urine Clarity Sl. Cloudy, Urine pH 6.0, Ur Specific [place] 1.015, Urine Protein Negative, Urine Glucose (UA) Normal, Urine Ketones Negative, Urine Occult Blood 10 H, Urine Nitrite Negative, Urine Bili davis Negative, Urine Urobilinogen Normal, Ur Leukocyte Esterase 25 H, Urine RBC 0 SEEN, Urine WBC 0-5 SEEN, Ur Squamous Epith Cells 0-5 SEEN, Urine Bacteria 3+, Urine Mucus 0 SEEN 01/13/20 11:37: POC Glucose 107 01/13/20 16:20: POC Glucose 114 H 01/14/20 05:00: WBC 7.0, RBC 2.98 L, Hgb 9.9 L, Hct 32.3 L, MCV 108.4 H, MCH 33.2 H, MCHC 30.7 L, RDW Std Deviation 51.9 H, RDW Coeff of Sina 13.1, Plt Count 119 L, MPV 9.3, Immature Gran % (Auto) 0.400, Neut % (Auto) 71.2 H, Lymph % (Auto) 17.0 L, [place] % (Auto) 8.5, Eos % (Auto) 2.3, Baso % (Auto) 0.6, Absolute Neuts (auto) 5.0, Absolute Lymphs (auto) 1.19, Nucleated RBC % 0 01/14/20 05:00: Sodium 141, Potassium 4.7, Chloride 111 H, Carbon Dioxide 27.0, Anion Gap 3 L, BUN 51 H, Creatinine 1.55 H, Estim Creat Clear Calc 24.35, Est GFR (MDRD) Af Amer 41 L, Est GFR (MDRD) Non-Af 34 L, BUN/Creatinine Ratio 32.9 H , Glucose 93, Calcium 8.3 L 01/14/20 05:00: PT 15.9 H, INR 1.[address] 01/12/20 17:32 IMPRESSION: Normal unenhanced CT scan of the brain. Electronically Signed: Josh Mahan MD at 18:29 EDT , Service support , Chest X-Ray 01/13/20 08:23 IMPRESSION: Mild residual changes at the lung bases overall there has been improved aeration. Electronically Signed: Dionisio Mora, at 12:47 EDT , Service support , Renal Ultrasound 01/13/20 10:20 IMPRESSION: There are 2 left renal cysts, the larger measuring 4.1 x 4.3 x 4.2 cm. The right kidney appears normal. Electronically Signed: Josh Mahan MD at 20:35 EDT , Service support , Current Medications Acetaminophen (Tylenol) 650 mg PO Q6H PRN PRN PRN Reason: Pain or Fever Last Admin: 01/13/20 08:11 Dose: 650 mg Documented by: Albuterol Sulfate (Ventolin Aerosols) 2.5 mg INHALATION Q4H PRN PRN PRN Reason: SOB &/OR WHEEZING Albuterol Sulfate (Ventolin Aerosols) 2.5 mg INHALATION Q6HWA.RT [facility] Last Admin: 01/14/20 07:10 Dose: 2.5 mg Documented by: Atorvastatin Calcium (Lipitor) 20 mg PO QHS [facility] Last Admin: 01/13/20 21:31 Dose: 20 mg Documented by: Budesonide (Pulmicort Aerosol) 0.5 mg INHALATION Q12H.RT [facility] Last Admin: 01/14/20 07:10 Dose: 0.5 mg Documented by: Duloxetine HCl (Cymbalta) 20 mg PO DAILY [facility] Last Admin: 01/13/20 08:12 Dose: 20 mg Documented by: Folic Acid (Folic Acid) 1 mg PO DAILY@0800 [facility] Last Admin: 01/13/20 08:12 Dose: 1 mg Documented by: Sodium Chloride () 250 mls @ 15 mls/hr IV .[id number] PRN PRN Reason: Saline Flush Sodium Chloride () 250 mls @ 15 mls/hr IV .[id number] PRN PRN Reason: Additional IVPB Infusion Levothyroxine Sodium (Synthroid) 175 mcg PO DAILY@0600 [facility] Last Admin: 01/14/20 06:16 Dose: 175 mcg Documented by: Nystatin (Mycostatin Powder) 1 applic TOPICAL TID PRN; Protocol PRN Reason: skin irritation Last Admin: 01/13/20 21:31 Dose: 1 applicatio Documented by: Pyridoxine HCl (Vitamin B-6) 100 mg PO DAILY [facility] Last Admin: 01/13/20 08:12 Dose: 100 mg Documented by: Sodium Chloride ([place] Nasal [place]) 2 spray NASAL TID PRN PRN PRN Reason: NASAL DRYNESS Sodium Chloride () 10 - 40 ml IV UD PRN PRN Reason: SALINE FLUSH Last Admin: 01/13/20 06:54 Dose: 40 ml Documented by: Sulfasalazine (Azulfidine) 1,000 mg PO BID [facility] Last Admin: 01/13/20 21:31 Dose: 1,000 mg Documented by: Thiamine HCl (Vitamin B1) 100 mg PO DAILY [facility] Last Admin: 01/13/20 08:13 Dose: 100 mg Documented by: Warfarin Sodium (Coumadin (Pbkc)) 5 mg PO DAILY@1700 [facility] Last Admin: 01/13/20 18:29 Dose: 5 mg Documented by: STROKE Vital Signs/Narrative: Vital Signs Temp Pulse Resp BP Pulse Ox 01/14/20 07:10 71 18 01/14/20 06:00 98.7 F 63 18 137/59 H 90 Medical Necessity - Tobacco Use Smoking Status: Former smoker Tobacco Use: Cigarettes Assessment/Plan All Active Problems (Last Reviewed 09/22/19 @ 14:24 by JUAN Cárdenas) Hypotension (Acute) Acute kidney injury (Acute) Carpal tunnel syndrome (Resolved) Fall (Resolved) Fracture of right radius (Resolved) 1. Hypotension, likely medication induced * resolved. * says her dose of diovan was recently reduced to 80mg from 320mg by her PCP due to hypotension * also on Ultram, which can exacerbate hypotension * IVF dc;d * continue holding losartan, meloxicam, lasix and HCTZ * 2. ASHANTI on CKD 3 * Cr is down to 1.55 today * renal USG showed left renal cysts, but was otherwise normal * nephrology on board; appreciate rec's. * UA was unremarkable; FeUrea was 20%, indicating pre-renal disease * will monitor * 3. Acute on chronic HFpEF * BNP is 418 * CXR pending today * 2D echo(01/13/20); EF of 60%, with no regional wall motion abnormalities, there is evidence of global right ventricular dysfunction and dilation * in light of echo findings, will get CTA of chest to rule out a PE; patient does hafve a history of DVT and PE, and has an IVC filter in place. INR was subtherapeutic on admission as well. * * 4. Hypothyroidism: On Synthroid. TSH-1.72 5. History of COPD: Not in exacerbation. On breathing treatments with bronchodilators. 6. History of pulmonary fibrosis: Stable. 7. History of DVT and PE: * On Coumadin; received 7.5mg x 1 yesterday as INR was 1.5. * INR today is 1.3. * WIll give coumadin 10mg today. * CTA is pending. 8. CHAI: On BiPAP nightly. DVT prophylaxis: on coumadin. INR is subtherapeutic. Disposition: transfer to PCU Inpatient E&M: 93920 Subs Hosp L2
--- NOTE | 2020-01-14 09:32 | CT_ITS ---
STUDY: CTA CHEST REASON FOR EXAM: Female, 79 years old. SOB RADIATION DOSAGE (If Supplied By Facility): CTDIvol = ( 12.66 ) mGy, DLP = ( 453.87 ) mGycm TECHNIQUE: The examination was performed with the intravenous administration of 100ML ISOVUE 370. Post-processing of the angiographic images was performed, with multiplanar reformation and 3D reconstruction. Individualized dose optimization techniques were used for this CT. COMPARISON: X-ray dated January 13, 2020. FINDINGS: HEART: Cardiomegaly. Coronary artery disease. Trace fluid within the pericardial sleeve. Minimal valve calcification. AORTA/GREAT VESSELS: Minimal vascular calcifications. No aneurysm. PULMONARY ARTERIES: No acute pulmonary embolism. No pulmonary arterial hypertension. Mild pulmonary vascular congestion. LUNGS/AIRWAYS: Linear atelectasis/scarring at the lingular segment. No focal patchy airspace opacities. No suspicious lung nodules. No lung mass. Central airways patent. PLEURA: No pneumothorax. No pleural effusion. MEDIASTINUM/THYROID: Normal thyroid. No pathologically enlarged lymph nodes. No pneumomediastinum. SOFT TISSUES: No acute process. OSSEOUS STRUCTURES: Degenerative changes. No acute process. UPPER ABDOMEN/ESOPHAGUS: No acute processes. CT/CTA Chest W/WO Contrast IMPRESSION: No acute pulmonary embolism, aortic dissection or aneurysm No pneumonia, pleural effusion or pneumothorax Mild pulmonary vascular congestion Lingular atelectasis/scarring Electronically Signed: Danyel Cole DO at 11:45 EDT Tel , Service support ,
[2020-01-14] MEDS: Thiamine Hydrochloride 100 MG Tablet PO (09:39)
[2020-01-14] MEDS: DULoxetine Hcl 20 MG Capsule PO (09:39)
[2020-01-14] MEDS: Pyridoxine HCl 50 MG Tablet 100 MG PO (09:39)
[2020-01-14] MEDS: sulfaSALAzine 500 MG Tablet 1000 MG PO ×2 (09:39→21:24)
[2020-01-14] MEDS: Folic Acid 1 MG Tablet PO (09:39)
--- NOTE | 2020-01-14 10:31 | PCM.PN.REN ---
Patient Problems: Active and Suspected Problems (Last Reviewed 09/22/19 @ 14:24 by JUAN Cárdenas) Hypotension (Acute) Acute kidney injury (Acute) Subjective: Pt is doing fine. feeling better. No nausea No vomiting - Physical Exam Vitals/I&O's: Vital Signs Temp Pulse Resp BP Pulse Ox 98.7 F 71 18 137/59 H 90 01/14/20 06:00 01/14/20 07:10 01/14/20 07:10 01/14/20 06:00 01/14/20 06:00 Oxygen Flow Rate (L/min) 3 Oxygen Delivery Method Nasal Cannula Weight: 135.1 kg Body Mass Index (BMI) 51.0 Intake and Output for Last 24 Hours 01/12/20 01/13/20 01/14/20 23:59 23:59 23:59 Intake Total 1999 3978.28 / 4178.28 200 / 200 Output Total 1099 / 1949 1850 / 1850 Balance 1999 2878.28 / 2228.28 -1650 / -1650 General: Alert, Oriented x3 HEENT: Atraumatic Oral: Moist Mucosa Neck: Supple, No JVD Lungs: - - B/L lungs bases crackles Cardiovascular: Regular rate, Regular Rhythm, Normal S1, Normal S2 Abdomen: Bowel Sounds Present, Soft, Non Tender Extremities: No clubbing, No cyanosis, No edema Skin: No rashes Musculoskeletal: No Tenderness to Palpation of Joints or Extremities Lymphatic: No Cervical, Supraclavicular, or Inguinal Adenopathy Neurological: Cranial nerves II-XII grossly intact, Neuro grossly intact Psych/Mental Status: Appropriate Laboratory Results 01/13/20 10:00: Urine Creatinine 72.60 01/13/20 10:00: Urine Urea Nitrogen 349 01/13/20 11:37: POC Glucose 107 01/13/20 16:20: POC Glucose 114 H 01/14/20 05:00: WBC 7.0, RBC 2.98 L, Hgb 9.9 L, Hct 32.3 L, MCV 108.4 H, MCH 33.2 H, MCHC 30.7 L, RDW Std Deviation 51.9 H, RDW Coeff of Sina 13.1, Plt Count 119 L, MPV 9.3, Immature Gran % (Auto) 0.400, Neut % (Auto) 71.2 H, Lymph % (Auto) 17.0 L, [place] % (Auto) 8.5, Eos % (Auto) 2.3, Baso % (Auto) 0.6, Absolute Neuts (auto) 5.0, Absolute Lymphs (auto) 1.19, Nucleated RBC % 0 01/14/20 05:00: Sodium 141, Potassium 4.7, Chloride 111 H, Carbon Dioxide 27.0, Anion Gap 3 L, BUN 51 H, Creatinine 1.55 H, Estim Creat Clear Calc 24.35, Est GFR (MDRD) Af Amer 41 L, Est GFR (MDRD) Non-Af 34 L, BUN/Creatinine Ratio 32.9 H, Glucose 93, Calcium 8.3 L 01/14/20 05:00: PT 15.9 H, INR 1.3 Current Medications Acetaminophen (Tylenol) 650 mg PO Q6H PRN PRN PRN Reason: Pain or Fever Last Admin: 01/13/20 08:11 Dose: 650 mg Documented by: Albuterol Sulfate (Ventolin Aerosols) 2.5 mg INHALATION Q4H PRN PRN PRN Reason: SOB &/OR WHEEZING Albuterol Sulfate (Ventolin Aerosols) 2.5 mg INHALATION Q6HWA.RT [facility] Last Admin: 01/14/20 07:10 Dose: 2.5 mg Documented by: Atorvastatin Calcium (Lipitor) 20 mg PO QHS [facility] Last Admin: 01/13/20 21:31 Dose: 20 mg Documented by: Budesonide (Pulmicort Aerosol) 0.5 mg INHALATION Q12H.RT [facility] Last Admin: 01/14/20 07:10 Dose: 0.5 mg Documented by: Duloxetine HCl (Cymbalta) 20 mg PO DAILY [facility] Last Admin: 01/14/20 09:39 Dose: 20 mg Documented by: Folic Acid (Folic Acid) 1 mg PO DAILY@0800 [facility] Last Admin: 01/14/20 09:39 Dose: 1 mg Documented by: Sodium Chloride () 250 mls @ 15 mls/hr IV .[id number] PRN PRN Reason: Saline Flush Sodium Chloride () 250 mls @ 15 mls/hr IV .[id number] PRN PRN Reason: Additional IVPB Infusion Levothyroxine Sodium (Synthroid) 175 mcg PO DAILY@0600 [facility] Last Admin: 01/14/20 06:16 Dose: 175 mcg Documented by: Nystatin (Mycostatin Powder) 1 applic TOPICAL TID PRN; Protocol PRN Reason: skin irritation Last Admin: 01/13/20 21:31 Dose: 1 applicatio Documented by: Pyridoxine HCl (Vitamin B-6) 100 mg PO DAILY [facility] Last Admin: 01/14/20 09:39 Dose: 100 mg Documented by: Sodium Chloride ([place] Nasal [place]) 2 spray NASAL TID PRN PRN PRN Reason: NASAL DRYNESS Sodium Chloride () 10 - 40 ml IV UD PRN PRN Reason: SALINE FLUSH Last Admin: 01/13/20 06:54 Dose: 40 ml Documented by: Sulfasalazine (Azulfidine) 1,000 mg PO BID [facility] Last Admin: 01/14/20 09:39 Dose: 1,000 mg Documented by: Thiamine HCl (Vitamin B1) 100 mg PO DAILY [facility] Last Admin: 01/14/20 09:39 Dose: 100 mg Documented by: Warfarin Sodium (Coumadin (Pbkc)) 5 mg PO DAILY@1700 [facility] Last Admin: 01/13/20 18:29 Dose: 5 mg Documented by: Medical Necessity - Tobacco Use Smoking Status: Former smoker Tobacco Use: Cigarettes Assessment/Plan All Active Problems (Last Reviewed 09/22/19 @ 14:24 by JUAN Cárdenas) Hypotension (Acute) Acute kidney injury (Acute) Carpal tunnel syndrome (Resolved) Fall (Resolved) Fracture of right radius (Resolved) 1-ASHANTI on CKD stage 3. UA is benign. Baseline SCr seems around 1.8-2.0 mg/dL ASHANTI is likely prerenal related to hemodynamic perturbation from right ventricle dysfunction and being on diuretics and ARB SCr is better at 1.5 mg/dL.SCr is below baseline because she is off ARB and diuretic. No oliguric Continue holding ARB, lasix and HCTZ Keep MAP > 65 No need for LOCKER ROOM CLERK Monitor RFP and UOP 2- Hyperkalemia: likely from ASHANTI and being on ARB Resolved. 3- Hypotension : might be medication induced Echo showed global right ventricle dysfunction . Pt is going to have CTA to rule out PE Continue holding home BP meds Keep MAP > 65 Renal team will continue to follow Please call if any question at [phone] d/w Dr. Prabhakar Maher MD
--- NOTE | 2020-01-14 10:58 | NURSING ---
report called to Crystal MORRIS RN
[2020-01-14] MEDS: Atorvastatin Calcium 20 MG Tablet PO (21:24)
[2020-01-14] MEDS: 0.9% Saline Lock 10 ML Syringe IV (21:26)
[2020-01-15] VITALS (8 sets, daily range): BP systolic 119–128; BP diastolic 64–72; PULSE 66–103; RESP 15–20; TEMP 36.5–36.8; O2SAT 94
[2020-01-15] MEDS: Acetaminophen 325 MG Tablet 650 MG PO ×2 (02:25→14:03)
[2020-01-15 05:42] LABS: Absolute Lymphocyte Count 1.52 X10^3/uL (0.83-4.51); Absolute Neutrophil Count 4.5 X10^3/uL (2.0-7.7); Basophil# 0.04 X10^3/uL; Basophil% 0.6 % (0-1); Eosinophil# 0.16 X10^3/uL; Eosinophils% 2.3 % (0-5); Hematocrit 32.3 % (37-47); Hemoglobin 10.1 g/dL (12.0-15.0); Lymphocyte # 1.52 X10^3/ul (4.0); Lymphocyte % 22.1 % (19-41); Mean Corp Hgb Conc 31.3 g/dL (32-36); Mean Corpuscular Volume 105.6 fL (81-99); Mean Platelet Vol. 9.1 fl (6.2-12.0); Monocyte# 0.58 X10^3/uL; Monocyte% 8.4 % (0-10); NRBC Flagged by Analyzer 0 % (0-5); Neutrophil # 4.54 X10^3/uL (2.7-7.7); Neutrophil % 66.2 % (47-70); Platelet Count 122 K/mm3 (150-450); RBC Distribution Width CV 13.2 % (11.6-14.6); RBC Distribution Width SD 51.1 fl (35.1-43.9); Red Blood Count 3.06 M/mm3 (4.2-5.4); White Blood Count 6.9 K/mm3 (4.4-11.0)
[2020-01-15 06:12] LABS: Anion Gap 5 (5-15); BUN 32 mg/dL (7-18); BUN/Creat Ratio 28.8 RATIO (10-20); Calcium,Total 8.4 mg/dL (8.5-10.1); Chloride 109 mmol/L (98-107); Creatinine, Serum 1.11 mg/dL (0.55-1.02); EST Glomerular Filtration Rate 50 mL/min (>60); Est Glom Filt Rate - Afr Amer 61 mL/min (>60); Glucose 106 mg/dL (74-106); Potassium 4.8 mmol/L (3.5-5.1); Sodium Level 140 mmol/L (136-145)
[2020-01-15] MEDS: Levothyroxine 175 MCG Tablet PO (06:56)
[2020-01-15] MEDS: Budesonide Respules 0.5 MG/2 ML AMPUL.NEB. INHALATION (06:59)
[2020-01-15] MEDS: Albuterol 2.5 MG/3 ML VIAL.NEB. INHALATION ×2 (06:59→13:18)
[2020-01-15] MEDS: DULoxetine Hcl 20 MG Capsule PO (07:49)
[2020-01-15] MEDS: Folic Acid 1 MG Tablet PO (07:49)
[2020-01-15] MEDS: Pyridoxine HCl 50 MG Tablet 100 MG PO (07:49)
[2020-01-15] MEDS: Thiamine Hydrochloride 100 MG Tablet PO (07:49)
[2020-01-15] MEDS: sulfaSALAzine 500 MG Tablet 1000 MG PO (07:49)
[2020-01-15 09:27] LABS: International Normalized Ratio 1.3; Prothrombin Time (Protime)PT. 15.9 SECONDS (11.7-14.9)
--- NOTE | 2020-01-15 10:56 | PN.RENAL_ITS ---
Patient Problems: Active and Suspected Problems (Last Reviewed 09/22/19 @ 14:24 by JUAN Cárdenas) Hypotension (Acute) Acute kidney injury (Acute) Subjective: Doing Ok. On RA No worsening respiratory status No more dizziness - Physical Exam Vitals/I&O's: Vital Signs Temp Pulse Resp BP Pulse Ox 98 F 98 15 119/72 94 01/15/20 09:58 01/15/20 09:58 01/15/20 09:58 01/15/20 09:58 01/15/20 09:58 Oxygen Flow Rate (L/min) 2 Oxygen Delivery Method Nasal Cannula Weight: 131.4 kg Body Mass Index (BMI) 51.0 Intake and Output for Last 24 Hours 01/13/20 01/14/20 01/15/20 23:59 23:59 23:59 Intake Total 3978.28 / 4178.28 1240 / 1240 150 / 150 Output Total 1100 / 1950 3800 / 3800 650 / 650 Balance 2878.28 / 2228.28 -2560 / -2560 -500 / -500 General: Alert, Oriented x3 HEENT: Atraumatic Oral: Moist Mucosa Neck: Supple, No JVD Lungs: Diminished Cardiovascular: Regular rate, Regular Rhythm, Normal S1 Abdomen: Bowel Sounds Present, Soft, Non Tender Extremities: No clubbing, No cyanosis, No edema Skin: No rashes Musculoskeletal: No Tenderness to Palpation of Joints or Extremities Lymphatic: No Cervical, Supraclavicular, or Inguinal Adenopathy Neurological: Cranial nerves II-XII grossly intact, Neuro grossly intact Psych/Mental Status: Appropriate Laboratory Results 01/15/20 05:24: WBC 6.9, RBC 3.06 L, Hgb 10.1 L, Hct 32.3 L, MCV 105.6 H, MCH 33.0 H, MCHC 31.3 L, RDW Std Deviation 51.1 H, RDW Coeff of Sina 13.2, Plt Count 122 L, MPV 9.1, Immature Gran % (Auto) 0.400, Neut % (Auto) 66.2, Lymph % (Auto) 22.1, [place] % (Auto) 8.4, Eos % (Auto) 2.3, Baso % (Auto) 0.6, Absolute Neuts (auto) 4.5, Absolute Lymphs (auto) 1.52, Nucleated RBC % 0 01/15/20 05:24: Sodium 140, Potassium 4.8, Chloride 109 H, Carbon Dioxide 26.0, Anion Gap 5, BUN 32 H, Creatinine 1.11 H, Estim Creat Clear Calc 34.00, Est GFR (MDRD) Af Amer 61, Est GFR (MDRD) Non-Af 50 L, BUN/Creatinine Ratio 28.8 H, Glucose 106, Calcium 8.4 L 01/15/20 05:30: PT 15.9 H, INR 1.3 Current Medications Acetaminophen (Tylenol) 650 mg PO Q6H PRN PRN PRN Reason: Pain or Fever Last Admin: 01/15/20 02:25 Dose: 650 mg Documented by: Albuterol Sulfate (Ventolin Aerosols) 2.5 mg INHALATION Q4H PRN PRN PRN Reason: SOB &/OR WHEEZING Albuterol Sulfate (Ventolin Aerosols) 2.5 mg INHALATION Q6HWA.RT [facility] Last Admin: 01/15/20 06:59 Dose: 2.5 mg Documented by: Atorvastatin Calcium (Lipitor) 20 mg PO QHS [facility] Last Admin: 01/14/20 21:24 Dose: 20 mg Documented by: Budesonide (Pulmicort Aerosol) 0.5 mg INHALATION Q12H.RT [facility] Last Admin: 01/15/20 06:59 Dose: 0.5 mg Documented by: Duloxetine HCl (Cymbalta) 20 mg PO DAILY [facility] Last Admin: 01/15/20 07:49 Dose: 20 mg Documented by: Folic Acid (Folic Acid) 1 mg PO DAILY@0800 [facility] Last Admin: 01/15/20 07:49 Dose: 1 mg Documented by: Sodium Chloride () 250 mls @ 15 mls/hr IV .[id number] PRN PRN Reason: Saline Flush Sodium Chloride () 250 mls @ 15 mls/hr IV .[id number] PRN PRN Reason: Additional IVPB Infusion Levothyroxine Sodium (Synthroid) 175 mcg PO DAILY@0600 [facility] Last Admin: 01/15/20 06:56 Dose: 175 mcg Documented by: Nystatin (Mycostatin Powder) 1 applic TOPICAL TID PRN; Protocol PRN Reason: skin irritation Last Admin: 01/13/20 21:31 Dose: 1 applicatio Documented by: Pyridoxine HCl (Vitamin B-6) 100 mg PO DAILY [facility] Last Admin: 01/15/20 07:49 Dose: 100 mg Documented by: Sodium Chloride ([place] Nasal [place]) 2 spray NASAL TID PRN PRN PRN Reason: NASAL DRYNESS Sodium Chloride () 10 - 40 ml IV UD PRN PRN Reason: SALINE FLUSH Last Admin: 01/14/20 21:26 Dose: 10 ml Documented by: Sulfasalazine (Azulfidine) 1,000 mg PO BID [facility] Last Admin: 01/15/20 07:49 Dose: 1,000 mg Documented by: Thiamine HCl (Vitamin B1) 100 mg PO DAILY [facility] Last Admin: 01/15/20 07:49 Dose: 100 mg Documented by: Warfarin Sodium (Coumadin (Pbkc)) 5 mg PO DAILY@1700 [facility] Last Admin: 01/14/20 17:33 Dose: 5 mg Documented by: Medical Necessity - Tobacco Use Smoking Status: Former smoker Tobacco Use: Cigarettes Assessment/Plan All Active Problems (Last Reviewed 09/22/19 @ 14:24 by JUAN Cárdenas) Hypotension (Acute) Acute kidney injury (Acute) Carpal tunnel syndrome (Resolved) Fall (Resolved) Fracture of right radius (Resolved) 1-ASHANTI on CKD stage 3. UA is benign. Baseline SCr seems around 1.8-2.0 mg/dL ASHANTI is likely prerenal related to hemodynamic perturbation from right ventricle dysfunction and being on diuretics and ARB SCr is better at 1.1 mg/dL.SCr is below baseline because she is off ARB and diuretic. No oliguric Pt had CT angio yesterday to rule PE Continue holding ARB, lasix and HCTZ Might resume lasix tomorrow if SCr is stable Will d/c HCTZ and ARB at discharge Keep MAP > 65 No need for RETAIL SALES ADVISOR Monitor RFP and UOP 2- Hyperkalemia: likely from ASHANTI and being on ARB Resolved. 3- Hypotension : Echo showed global right ventricle dysfunction .CT showed no PE Likely medications induced d/c HCTZ and ARB at discharge resume lasix at discharge Keep MAP > 65 Renal team will continue to follow Please call if any question at [phone] Trevor Maher MD
--- NOTE | 2020-01-15 11:39 | DCINST_ITS ---
- Discharge Diagnoses Current Active Problems: Current Active and Chronic Problems (Last Reviewed 09/22/19 @ 14:24 by JUAN Cárdenas) Hypotension (Acute) Acute kidney injury (Acute) You will use the following diet at home:: Cardiac Your food should be the consistency of: Regular Your liquids should be the consistency of: Regular/Thin Discharge Activity: Return to Normal Activity Weight Bearing Status: Weight bearing as tolerated Call your doctor if you observe: Fever of 101 or Higher, Shortness of breath, Dizziness, Fainting spells, Swelling in the ankles, Chest pain Instructions: Low Blood Pressure (Hypotension) Additional Instructions: valsartan HCTZ stopped today due to hypotension. take 10mg of coumadin tomorrow, and then continue with 5mg daily from Sunday01/17/2020. To check INR with PCP tomorrow. Allergies/Adverse Reactions: Allergies erythromycin base Allergy (Mild, Verified 01/12/20 14:45) unknown aspirin [From Robaxisal] Allergy (Verified 01/12/20 14:45) Unknown digoxin [From Lanoxin] Allergy (Verified 01/12/20 14:45) Unknown etodolac [From Lodine] Allergy (Verified 01/12/20 14:45) Unknown ibuprofen [From Motrin] Allergy (Verified 01/12/20 14:45) Unknown meclizine HCl [From Antivert] Allergy (Verified 01/12/20 14:45) Unknown meclofenamate sodium [From Meclomen] Allergy (Verified 01/12/20 14:45) Unknown methocarbamol [From Robaxisal] Allergy (Verified 01/12/20 14:45) Unknown nabumetone [From Relafen] Allergy (Verified 01/12/20 14:45) Unknown PT STATES IT'S BEEN SO LONG I CAN'T REMEMBER WHAT THEY DO TO ME naproxen Allergy (Verified 01/12/20 14:45) Unknown sulfamethoxazole [From Bactrim] Allergy (Verified 01/12/20 14:45) Unknown trimethoprim [From Bactrim] Allergy (Verified 01/12/20 14:45) Unknown Penicillins Adverse Reaction (Intermediate, Verified 01/12/20 17:00) Diarrhea Medications to take at Discharge Rosuvastatin Calcium [Crestor] 10 mg PO QHS 05/13/15 Calcium Carbonate/Vitamin D3 [Calcium 500+D Tablet Chew] 1 tab PO DAILY 12/19/15 Pyridoxine HCl [Vitamin B6] 100 mg PO DAILY 10/23/15 Sulfasalazine [Azulfidine] 1,000 mg PO BID 10/23/15 Thiamine Hydrochloride [Vitamin B1] 100 mg PO DAILY 10/23/15 Amitriptyline HCl 100 mg PO QHS 01/30/17 Glucosamine/MSM/Chondroitin A [Glucosamine Chondroit MSM Tab] 1 ea PO BID 01/30/17 Mometasone/Formoterol [Dulera 100 Mcg-5 Mcg Inhaler] 1 puff IH BID 01/30/17 Nystatin Powder [Mycostatin Powder] 1 applic TOPICAL TID PRN 10/16/17 Oxybutynin Chloride [Ditropan Xl] 10 mg PO DAILY 10/16/17 Acetaminophen [Tylenol] 1,000 mg PO Q8H PRN tab 11/23/17 Sodium Chloride 0.65% [[place] Nasal [place]] 2 spray NASAL TID PRN PRN spray.btl 11/23/17 metoprolol succinate 25 mg tablet,extended release 24 hr 25 mg PO DAILY 90 Days #90 06/21/18 duloxetine 20 mg capsule,delayed release 20 mg PO DAILY cap 09/22/19 folic acid 400 mcg tablet 800 mcg PO DAILY 09/22/19 levothyroxine 75 mcg tablet 175 mcg PO DAILY@0600 tab 09/22/19 Acetaminophen [Tylenol Arthritis] 650 mg PO DAILY 01/05/20 Furosemide 40 mg PO DAILY 01/05/20 Loratadine [Claritin] 10 mg PO DAILY 01/05/20 Cholecalciferol (VIT D3) [Vitamin D3] 1,000 unit PO DAILY 01/12/20 Pramipexole Di-HCl [Mirapex] 1.5 mg PO QHS 01/12/20 Warfarin Sodium 5 mg PO DAILY 01/12/20 traMADol [Ultram] 50 mg PO Q6H PRN PRN 01/12/20 Primary Care Physician: Jovani Mcconnell MD [Primary Care Provider] - Please follow up with your Primary Care Physician in: one week Test Results: Test results from this visit will be discussed in further detail at your follow- up appointment, if applicable. Please Follow Up With: Trevor Maher MD When: 1-2 weeks Proposed Discharge Date: 01/15/20
--- NOTE | 2020-01-15 11:44 | DS.PCM_ITS ---
Discharge Date and Diagnosis Date of Admission: 01/12/20 Date of Discharge: 01/15/20 - Primary Discharge Diagnosis Active and Suspected Problems (Last Reviewed 09/22/19 @ 14:24 by JUAN Cárdenas) Hypotension (Acute) Acute kidney injury (Acute) acute on chronic HFpEF - Secondary Discharge Diagnosis Chronic Problems (Last Reviewed 09/22/19 @ 14:24 by JUAN Cárdenas) Secondary pulmonary arterial hypertension (Chronic) Pulmonary emboli (Chronic) Essential hypertension (Chronic) Hyperlipidemia (Chronic) Hospital Course and Treatment Imaging Results: Diagnostic Data Brain CT 01/12/20 17:32 IMPRESSION: Normal unenhanced CT scan of the brain. Electronically Signed: Josh Mahan MD at 18:29 EDT , Service support , Chest X-Ray 01/13/20 08:23 IMPRESSION: Mild residual changes at the lung bases overall there has been improved aeration. Electronically Signed: Dionisio Mora at 12:47 EDT , Service support , Renal Ultrasound 01/13/20 10:20 IMPRESSION: There are 2 left renal cysts, the larger measuring 4.1 x 4.3 x 4.2 cm. The right kidney appears normal. Electronically Signed: Josh Mahan MD at 20:35 EDT , Service support , Chest CTA 01/14/20 09:32 IMPRESSION: No acute pulmonary embolism, aortic dissection or aneurysm No pneumonia, pleural effusion or pneumothorax Mild pulmonary vascular congestion Lingular atelectasis/scarring Electronically Signed: Danyel Cole DO at 11:45 EDT Tel , Service support , nephrology- Dr Maher critical care- Dr Contreras Operations: None Procedures: 2-D Echocardiogram Summary of Care Provided: The patient is a 79 year old F with a past medical history as outlined. She was admitted through the ED on 01/12/2020 with a complaint of generalized weakness, dizziness and hypotension. Patient had a history of PE in 2008 which required catheter directed lytic therapy and on coumadin. On admission, her BP was 71/42mmHg. INR was 1.4 and chemistry showed Potassium of 5.6 and CR of 2.8. Troponins x 3 were negative. Patient said her medications had recently been changed because of hypotension with her Diovan dose being decreased. She was hydrated with IV fluids was initially not responding so she was admitted to the ICU to be managed for hypotension likely medication induced as well as ASHANTI. All her blood pressure meds were held and patient was resuscitated with IV fluids.. And trended up to 2.87 during admission and BNP was also elevated at 418. Nephrology was consulted on account of ASHANTI on CKD. Creatinine gradually trended down to 1.55. 2D echo done showed EF of 60% with no regional wall motion abnormalities and evidence of right ventricular dysfunction and dilatation. CTA done on account of echo findings was negative for PE. Of note, INR was subtherapeutic on admission and remained subtherapeutic. Her Coumadin dose was increased and she was given 7.5 mg during admission and also increased to 10 mg. At time of discharge INR was 1.4. Trended down to 1.1 and patient's valsartan hydrochlorothiazide was discontinued. She remained stable and was discharged home on 01/15/2020. She is only to continue taking her resume the metoprolol. Patient was counseled that she should take 10 mg of Coumadin on day of discharge and to follow-up with her primary care doctor within a couple of days for INR check. She is also to take 10 mg of Coumadin on the next day after discharge and then to continue with 5 mg daily unless instructed otherwise by her primary care doctor. Patient seen and examined prior to discharge. She had no complaints and was eager to go home. Review of signs otherwise negative. Labs and vitals reviewed. Home medication reviewed and reconciled. o/e: Vital Signs Height 5 ft 3 in Weight: 289 lb 10.998 oz Weight in Pounds 289.7 lbs Pulse Ox 94 Temperature 98 F Pulse Rate 103 Respiratory Rate 16 Blood Pressure [BP] 108/65 Blood Pressure 119/72 Blood Pressure Position [BP] Semi-Fowlers Blood Pressure Position Sitting General: Alert, Oriented x3, Cooperative, - - super morbid obesity HEENT: Atraumatic, PERRLA, EOMI, Normocephalic Oral: Moist Mucosa Neck: Supple, No JVD, Negative Carotid Bruits Lungs: Normal air movement, No rhonchi, No wheeze, No rales, Cardiovascular: Regular rate, few crackles bibasally, Regular Rhythm, Normal S1, Normal S2, No murmurs Abdomen: Bowel Sounds Present, Soft, Non Tender, Non-Distended, No Hepato- splenomegaly Extremities: No clubbing, No cyanosis, No edema, Capillary Refill Less than 3 Seconds Skin: No rashes, No breakdown Musculoskeletal: No Tenderness to Palpation of Joints or Extremities Lymphatic: No Cervical, Supraclavicular, or Inguinal Adenopathy Neurological: Cranial nerves II-XII grossly intact, Neuro grossly intact, Motor Exam 5/5 strength throughout Psych/Mental Status: Normal Affect, Appropriate, Alert and oriented to time, place, person, mood and affect Plan as above. - Physical Exam Vitals/I&O's: Vital Signs Temp Pulse Resp BP Pulse Ox 98 F 98 15 119/72 94 01/15/20 09:58 01/15/20 09:58 01/15/20 09:58 01/15/20 09:58 01/15/20 09:58 Oxygen Flow Rate (L/min) 2 Oxygen Delivery Method Nasal Cannula Weight: 289 lb 10.998 oz Body Mass Index (BMI) 51.0 Intake and Output for Last 24 Hours 01/13/20 01/14/20 01/15/20 23:59 23:59 23:59 Intake Total 3978.28 / 4178.28 1240 / 1240 150 / 150 Output Total 1100 / 1950 3800 / 3800 650 / 650 Balance 2878.28 / 2228.28 -2560 / -2560 -500 / -500 Laboratory Results 01/15/20 05:24: WBC 6.9, RBC 3.06 L, Hgb 10.1 L, Hct 32.3 L, MCV 105.6 H, MCH 33.0 H, MCHC 31.3 L, RDW Std Deviation 51.1 H, RDW Coeff of Sina 13.2, Plt Count 122 L, MPV 9.1, Immature Gran % (Auto) 0.400, Neut % (Auto) 66.2, Lymph % (Auto) 22.1, [place] % (Auto) 8.4, Eos % (Auto) 2.3, Baso % (Auto) 0.6, Absolute Neuts (auto) 4.5, Absolute Lymphs (auto) 1.52, Nucleated RBC % 0 01/15/20 05:24: Sodium 140, Potassium 4.8, Chloride 109 H, Carbon Dioxide 26.0, Anion Gap 5, BUN 32 H, Creatinine 1.11 H, Estim Creat Clear Calc 34.00, Est GFR (MDRD) Af Amer 61, Est GFR (MDRD) Non-Af 50 L, BUN/Creatinine Ratio 28.8 H, Glucose 106, Calcium 8.4 L 01/15/20 05:30: PT 15.9 H, INR 1.3 Current Medications Acetaminophen (Tylenol) 650 mg PO Q6H PRN PRN PRN Reason: Pain or Fever Last Admin: 01/15/20 02:25 Dose: 650 mg Documented by: Albuterol Sulfate (Ventolin Aerosols) 2.5 mg INHALATION Q4H PRN PRN PRN Reason: SOB &/OR WHEEZING Albuterol Sulfate (Ventolin Aerosols) 2.5 mg INHALATION Q6HWA.RT [facility] Last Admin: 01/15/20 06:59 Dose: 2.5 mg Documented by: Atorvastatin Calcium (Lipitor) 20 mg PO QHS [facility] Last Admin: 01/14/20 21:24 Dose: 20 mg Documented by: Budesonide (Pulmicort Aerosol) 0.5 mg INHALATION Q12H.RT [facility] Last Admin: 01/15/20 06:59 Dose: 0.5 mg Documented by: Duloxetine HCl (Cymbalta) 20 mg PO DAILY [facility] Last Admin: 01/15/20 07:49 Dose: 20 mg Documented by: Folic Acid (Folic Acid) 1 mg PO DAILY@0800 [facility] Last Admin: 01/15/20 07:49 Dose: 1 mg Documented by: Sodium Chloride () 250 mls @ 15 mls/hr IV .[id number] PRN PRN Reason: Saline Flush Sodium Chloride () 250 mls @ 15 mls/hr IV .[id number] PRN PRN Reason: Additional IVPB Infusion Levothyroxine Sodium (Synthroid) 175 mcg PO DAILY@0600 [facility] Last Admin: 01/15/20 06:56 Dose: 175 mcg Documented by: Nystatin (Mycostatin Powder) 1 applic TOPICAL TID PRN; Protocol PRN Reason: skin irritation Last Admin: 01/13/20 21:31 Dose: 1 applicatio Documented by: Pyridoxine HCl (Vitamin B-6) 100 mg PO DAILY [facility] Last Admin: 01/15/20 07:49 Dose: 100 mg Documented by: Sodium Chloride ([place] Nasal [place]) 2 spray NASAL TID PRN PRN PRN Reason: NASAL DRYNESS Sodium Chloride () 10 - 40 ml IV UD PRN PRN Reason: SALINE FLUSH Last Admin: 01/14/20 21:26 Dose: 10 ml Documented by: Sulfasalazine (Azulfidine) 1,000 mg PO BID [facility] Last Admin: 01/15/20 07:49 Dose: 1,000 mg Documented by: Thiamine HCl (Vitamin B1) 100 mg PO DAILY [facility] Last Admin: 01/15/20 07:49 Dose: 100 mg Documented by: Warfarin Sodium (Coumadin (Pbkc)) 5 mg PO DAILY@1700 [facility] Last Admin: 01/14/20 17:33 Dose: 5 mg Documented by: Discharge Diet: Low fat/ Low Cholesterol Discharge Activity: Return to Normal Activity Weight Bearing Status: Weight bearing as tolerated Call your doctor if you observe: Fever of 101 or Higher, Shortness of breath, Dizziness, Fainting spells, Swelling in the ankles, Chest pain Home Medications: Medications to take at Discharge Rosuvastatin Calcium [Crestor] 10 mg PO QHS 05/13/15 Calcium Carbonate/Vitamin D3 [Calcium 500+D Tablet Chew] 1 tab PO DAILY 10/23/15 Pyridoxine HCl [Vitamin B6] 100 mg PO DAILY 10/23/15 Sulfasalazine [Azulfidine] 1,000 mg PO BID 10/23/15 Thiamine Hydrochloride [Vitamin B1] 100 mg PO DAILY 10/23/15 Amitriptyline HCl 100 mg PO QHS 01/30/17 Glucosamine/MSM/Chondroitin A [Glucosamine Chondroit MSM Tab] 1 ea PO BID 01/30/17 Mometasone/Formoterol [Dulera 100 Mcg-5 Mcg Inhaler] 1 puff IH BID 01/30/17 Nystatin Powder [Mycostatin Powder] 1 applic TOPICAL TID PRN 10/16/17 Oxybutynin Chloride [Ditropan Xl] 10 mg PO DAILY 10/16/17 Acetaminophen [Tylenol] 1,000 mg PO Q8H PRN tab 11/23/17 Sodium Chloride 0.65% [[place] Nasal [place]] 2 spray NASAL TID PRN PRN spray.btl 11/23/17 metoprolol succinate 25 mg tablet,extended release 24 hr 25 mg PO DAILY 90 Days #90 06/21/18 duloxetine 20 mg capsule,delayed release 20 mg PO DAILY cap 09/22/19 folic acid 400 mcg tablet 800 mcg PO DAILY 09/22/19 levothyroxine 75 mcg tablet 175 mcg PO DAILY@0600 tab 09/22/19 Acetaminophen [Tylenol Arthritis] 650 mg PO DAILY 01/05/20 Furosemide 40 mg PO DAILY 01/05/20 Loratadine [Claritin] 10 mg PO DAILY 01/05/20 Cholecalciferol (VIT D3) [Vitamin D3] 1,000 unit PO DAILY 01/12/20 Pramipexole Di-HCl [Mirapex] 1.5 mg PO QHS 01/12/20 Warfarin Sodium 5 mg PO DAILY 01/12/20 traMADol [Ultram] 50 mg PO Q6H PRN PRN 01/12/20 Primary Care Physician: Jovani Mcconnell MD [Primary Care Provider] - Please follow up with your Primary Care Physician in: one week Please Follow Up With: Trevor Maher MD When: 1-2 weeks Patient Instructions: Low Blood Pressure (Hypotension) Disposition: Home Minutes spent on discharge:: 45 Patient Condition:: Stable Medical Necessity - Tobacco Use Smoking Status: Former smoker Tobacco Use: Cigarettes Meaningful Use Info Meaningful Use Diagnoses (Choose all that apply): CHF - CHF JC/ARB ordered at discharge?: No Reason JC/ARB not ordered?: Hypotension Documented LVEF (%): 65 Inpatient E&M: 92557 Disch Hosp
--- NOTE | 2020-01-15 12:16 | PHA.DC.MR ---
Pharmacy Service has performed discharge medication reconciliation for this patient. No new medications issued at time of discharge review. Medications reviewed are previously reported home medications. The patient's discharge medication list was reviewed for discrepancies and discrepancies were resolved. Home Medications Rosuvastatin Calcium [Crestor] 10 mg PO QHS 05/13/15 Calcium Carbonate/Vitamin D3 [Calcium 500+D Tablet Chew] 1 tab PO DAILY 10/23/15 Pyridoxine HCl [Vitamin B6] 100 mg PO DAILY 10/23/15 Sulfasalazine [Azulfidine] 1,000 mg PO BID 10/23/15 Thiamine Hydrochloride [Vitamin B1] 100 mg PO DAILY 10/23/15 Amitriptyline HCl 100 mg PO QHS 01/30/17 Glucosamine/MSM/Chondroitin A [Glucosamine Chondroit MSM Tab] 1 ea PO BID 01/30/17 Mometasone/Formoterol [Dulera 100 Mcg-5 Mcg Inhaler] 1 puff IH BID 01/30/17 Nystatin Powder [Mycostatin Powder] 1 applic TOPICAL TID PRN 10/16/17 Oxybutynin Chloride [Ditropan Xl] 10 mg PO DAILY 10/16/17 Acetaminophen [Tylenol] 1,000 mg PO Q8H PRN tab 11/23/17 Sodium Chloride 0.65% [[place] Nasal [place]] 2 spray NASAL TID PRN PRN spray.btl 11/23/17 metoprolol succinate 25 mg tablet,extended release 24 hr 25 mg PO DAILY 90 Days #90 06/21/18 duloxetine 20 mg capsule,delayed release 20 mg PO DAILY cap 09/22/19 folic acid 400 mcg tablet 800 mcg PO DAILY 09/22/19 levothyroxine 75 mcg tablet 175 mcg PO DAILY@0600 tab 09/22/19 Acetaminophen [Tylenol Arthritis] 650 mg PO DAILY 01/05/20 Furosemide 40 mg PO DAILY 01/05/20 Loratadine [Claritin] 10 mg PO DAILY 01/05/20 Cholecalciferol (VIT D3) [Vitamin D3] 1,000 unit PO DAILY 01/12/20 Pramipexole Di-HCl [Mirapex] 1.5 mg PO QHS 01/12/20 Warfarin Sodium 5 mg PO DAILY 01/12/20 traMADol [Ultram] 50 mg PO Q6H PRN PRN 01/12/20
--- NOTE | 2020-01-15 13:16 | CASEMGMT ---
Per Crystal JENSEN, pt does not qualify for home oxygen at this time. This RN CM to room to discuss discharge plan with pt at this time. Pt is aware of [facility] set up and is still agreeable to this at this time. Pt states no concerns with going home at time of discharge. Pt voices no further questions/concerns/needs at this time. Consuelo at [facility] aware of pt discharge today, voices understanding. Araceli JENSEN CM
--- NOTE | 2020-01-15 17:59 | NURSING ---
Dr. Radford called with orders to call patient at home and instruct to take coumadin 10mg po tonight and follow up with DR. Chen for INR in am. This nurse called patient and informed her to take coumadin 10mg tonight and recheck INR in am. She informed me that she has the appointment with the already scheduled and will take 10mg tonight.
--- NOTE | 2020-01-16 14:59 | CASEMGMT ---
DC DATE: 01.15.2020 DC DISPOSITION: Home with [facility] DC DIAGNOSIS: Hypotension, ASHANTI LACE/STRATA: 08/07 Call deferred. Pt dc'd with [facility]. Bishop BARNHARTN RN ACM
== END 2020-01-15 15:41 | disposition home health service (06) | DRG 987 ==
LOC: ED 16:43 → ICU 01-13 06:53 → PCU 01-14 11:36
PROVIDERS: Internal Medicine Critical Care Medicine; Physician Assistant; Admitting Provider Internal Medicine; Emergency Provider Emergency Medicine; PCP Family Medicine; Visit Provider Student in an Organized Health Care Education/Training Program
DX: N17.0 Acute kidney failure with tubular necrosis (principal); I50.33 Acute on chronic diastolic (congestive) heart failure; Z68.43 Body mass index [BMI] 50.0-59.9, adult; I13.0 Hypertensive heart and chronic kidney disease with heart failure and stage 1 through stage 4 chronic kidney disease, or unspecified chronic kidney disease; I95.2 Hypotension due to drugs; G56.02 Carpal tunnel syndrome, left upper limb; E66.01 Morbid (severe) obesity due to excess calories; T46.5X5A Adverse effect of other antihypertensive drugs, initial encounter; E03.9 Hypothyroidism, unspecified; J44.9 Chronic obstructive pulmonary disease, unspecified; J84.10 Pulmonary fibrosis, unspecified; G47.33 Obstructive sleep apnea (adult) (pediatric); E87.5 Hyperkalemia; Z79.01 Long term (current) use of anticoagulants; N18.3 Chronic kidney disease, stage 3 (moderate); Z86.718 Personal history of other venous thrombosis and embolism; Z95.828 Presence of other vascular implants and grafts; Z87.891 Personal history of nicotine dependence; I27.21 Secondary pulmonary arterial hypertension; E78.5 Hyperlipidemia, unspecified; F32.9 Major depressive disorder, single episode, unspecified; F41.9 Anxiety disorder, unspecified; Z66 Do not resuscitate
CPT/HCPCS: 36415; 36416; 70450; 71045; 71275; 76770; 80048; 80076; 81001; 82570; 82962; 83605; 83880; 84443; 84484; 84540; 85025; 85610; 93005; 93306; 93970; 94002; 94640; 97116; 97162; 97166; 97530; 97802; 99285; J7030; J7050; J7120; Q9957; Q9967; A4216; C8929; J2405

== ENCOUNTER → 2020-01-23 13:30 | Outpatient (CLI) | payer MEDICARE, SELFPAY ==
[2020-01-22 13:25] VITALS: BMI 51.0
[2020-01-23 15:50] LABS: Absolute Lymphocyte Count 1.57 X10^3/uL (0.83-4.51); Absolute Neutrophil Count 7.6 X10^3/uL (2.0-7.7); Basophil# 0.06 X10^3/uL; Basophil% 0.6 % (0-1); Hematocrit 40.1 % (37-47); Hemoglobin 12.6 g/dL (12.0-15.0); Lymphocyte # 1.57 X10^3/ul (4.0); Lymphocyte % 15.6 % (19-41); Mean Corp Hgb Conc 31.4 g/dL (32-36); Mean Corpuscular Hgb 33.3 pg (27.0-32.0); Mean Corpuscular Volume 106.1 fL (81-99); Mean Platelet Vol. 9.5 fl (6.2-12.0); Monocyte# 0.72 X10^3/uL; Monocyte% 7.1 % (0-10); NRBC Flagged by Analyzer 0 % (0-5); Neutrophil # 7.59 X10^3/uL (2.7-7.7); Neutrophil % 75.4 % (47-70); Platelet Count 203 K/mm3 (150-450); RBC Distribution Width CV 13.9 % (11.6-14.6); RBC Distribution Width SD 52.5 fl (35.1-43.9); Red Blood Count 3.78 M/mm3 (4.2-5.4); White Blood Count 10.1 K/mm3 (4.4-11.0)
[2020-01-23 16:02] LABS: AST(SGOT) 19 U/L (15-37); Alanine Aminotransfer ALT/SGPT 27 U/L (13-56); Albumin, Serum 3.9 g/dL (3.2-5.0); Alkaline Phosphatase 78 U/L (45-117); Anion Gap 8 (5-15); BUN 24 mg/dL (7-18); BUN/Creat Ratio 18.3 RATIO (10-20); Calcium,Total 9.5 mg/dL (8.5-10.1); Chloride 103 mmol/L (98-107); Creatinine, Serum 1.31 mg/dL (0.55-1.02); EST Glomerular Filtration Rate 42 mL/min (>60); Est Glom Filt Rate - Afr Amer 50 mL/min (>60); Globulin 3.9 g/dL (2.2-4.2); Glucose 90 mg/dL (74-106); Protein, Total 7.8 g/dL (6.4-8.2); Sodium Level 138 mmol/L (136-145)
== END ==
PROVIDERS: PCP Family Medicine; Referring Provider Family Medicine; Visit Provider Family Medicine
DX: D64.9 Anemia, unspecified (principal); N18.9 Chronic kidney disease, unspecified
CPT/HCPCS: 36415; 80053; 85025

== ENCOUNTER 2020-02-04 13:06 | Outpatient (RCR) | payer MEDICARE, SELFPAY ==
[2020-01-22 13:25] VITALS: BMI 51.0
[2020-02-04 13:52] LABS: Albumin, Serum 3.6 g/dL (3.2-5.0); BUN 27 mg/dL (7-18); BUN/Creat Ratio 20.6 RATIO (10-20); Calcium,Total 9.3 mg/dL (8.5-10.1); Chloride 100 mmol/L (98-107); Creatinine, Serum 1.31 mg/dL (0.55-1.02); EST Glomerular Filtration Rate 42 mL/min (>60); Est Glom Filt Rate - Afr Amer 50 mL/min (>60); Glucose 93 mg/dL (74-106); Phosphorus 3.3 mg/dL (2.5-4.9); Potassium 3.8 mmol/L (3.5-5.1); Sodium Level 137 mmol/L (136-145)
== END 2020-03-04 18:00 | disposition home or self-care (01) ==
LOC: HHLAB 13:06
PROVIDERS: PCP Family Medicine; Referring Provider Internal Medicine Nephrology; Visit Provider Internal Medicine Nephrology
DX: I13.0 Hypertensive heart and chronic kidney disease with heart failure and stage 1 through stage 4 chronic kidney disease, or unspecified chronic kidney disease (principal); I50.22 Chronic systolic (congestive) heart failure; N18.3 Chronic kidney disease, stage 3 (moderate)
CPT/HCPCS: 80069

== ENCOUNTER → 2020-06-30 14:27 | Outpatient (CLI) | payer MEDICARE, BC, SELFPAY ==
[2020-05-04 13:22] VITALS: BMI 50.5
[2020-06-30 17:45] LABS: Absolute Lymphocyte Count 1.75 X10^3/uL (0.83-4.51); Absolute Neutrophil Count 6.1 X10^3/uL (2.0-7.7); Basophil# 0.03 X10^3/uL; Basophil% 0.3 % (0-1); Eosinophil# 0.15 X10^3/uL; Eosinophils% 1.7 % (0-5); Hematocrit 40.7 % (37-47); Hemoglobin 12.6 g/dL (12.0-15.0); Lymphocyte # 1.75 X10^3/ul (4.0); Lymphocyte % 20.1 % (19-41); Mean Corpuscular Hgb 32.6 pg (27.0-32.0); Mean Corpuscular Volume 105.2 fL (81-99); Mean Platelet Vol. 9.4 fl (6.2-12.0); Monocyte# 0.65 X10^3/uL; Monocyte% 7.5 % (0-10); NRBC Flagged by Analyzer 0 % (0-5); Neutrophil # 6.09 X10^3/uL (2.7-7.7); Neutrophil % 70.1 % (47-70); Platelet Count 178 K/mm3 (150-450); RBC Distribution Width CV 13.4 % (11.6-14.6); RBC Distribution Width SD 51.7 fl (35.1-43.9); Red Blood Count 3.87 M/mm3 (4.2-5.4); White Blood Count 8.7 K/mm3 (4.4-11.0)
[2020-06-30 17:56] LABS: T3 Total - Triiodothyronine 0.79 ng/mL (0.6-1.81)
[2020-06-30 18:06] LABS: ALB/GLOB Ratio 1.1 RATIO (0.9-2.4); AST(SGOT) 16 U/L (15-37); Alanine Aminotransfer ALT/SGPT 29 U/L (13-56); Albumin, Serum 3.8 g/dL (3.2-5.0); Alkaline Phosphatase 71 U/L (45-117); Anion Gap 4 (5-15); BUN 23 mg/dL (7-18); BUN/Creat Ratio 22.3 RATIO (10-20); Calcium,Total 9.3 mg/dL (8.5-10.1); Chloride 104 mmol/L (98-107); Creatinine, Serum 1.03 mg/dL (0.55-1.02); EST Glomerular Filtration Rate 55 mL/min (>60); Est Glom Filt Rate - Afr Amer 66 mL/min (>60); Ferritin 74 ng/mL (8-252); Globulin 3.5 g/dL (2.2-4.2); Glucose 88 mg/dL (74-106); Potassium 4.1 mmol/L (3.5-5.1); Protein, Total 7.3 g/dL (6.4-8.2); Sodium Level 137 mmol/L (136-145); T4 Free Direct 1.23 ng/dL (0.76-1.46); Thyroid Stim Hormone (TSH) 1.99 uIU/mL (0.358-3.74)
[2020-07-02 13:04] LABS: Thyroid Peroxidase AB 11 IU/mL (0-34)
[2020-07-03 14:24] LABS: Anti-Nuclear Antibody Test Negative (.)
== END ==
PROVIDERS: PCP Family Medicine; Referring Provider Dermatology Pediatric Dermatology; Visit Provider Dermatology Pediatric Dermatology
DX: D69.2 Other nonthrombocytopenic purpura (principal); L65.0 Telogen effluvium; L65.8 Other specified nonscarring hair loss; L64.8 Other androgenic alopecia
CPT/HCPCS: 36415; 80053; 82728; 84439; 84443; 84480; 85025; 86038; 86376

== ENCOUNTER → 2020-07-19 14:12 | Outpatient (CLI) | payer MEDICARE, BC, SELFPAY ==
[2020-05-04 13:22] VITALS: BMI 50.5
[2020-07-19 18:27] LABS: Vitamin B12 723 pg/mL (211-911)
== END ==
PROVIDERS: PCP Family Medicine; Referring Provider Dermatology Pediatric Dermatology; Visit Provider Dermatology Pediatric Dermatology
DX: D64.9 Anemia, unspecified (principal); L64.8 Other androgenic alopecia
CPT/HCPCS: 36415; 82607; 82746

== ENCOUNTER → 2021-01-26 11:06 | Outpatient (CLI) | payer MEDICARE, BC, SELFPAY ==
[2021-01-25 13:11] VITALS: BMI 48.3
[2021-01-26 13:30] LABS: AST(SGOT) 22 U/L (15-37); Alanine Aminotransfer ALT/SGPT 26 U/L (13-56); Albumin, Serum 3.9 g/dL (3.2-5.0); Alkaline Phosphatase 81 U/L (45-117); Bilirubin, Direct 0.22 mg/dL (0.00-0.30); Cholesterol 151 mg/dL (200); Globulin 3.6 g/dL (2.2-4.2); High Density Lipoprotein 62 mg/dL; Protein, Total 7.5 g/dL (6.4-8.2); T4 Free Direct 1.14 ng/dL (0.76-1.46); Thyroid Stim Hormone (TSH) 3.13 uIU/mL (0.358-3.74); Triglycerides 91 mg/dL; Very Low Density Lipoprotein 18 mg/dL (5-40)
== END ==
PROVIDERS: Internal Medicine Cardiovascular Disease; PCP Family Medicine; Referring Provider Family Medicine; Visit Provider Family Medicine
DX: E03.9 Hypothyroidism, unspecified (principal); E78.00 Pure hypercholesterolemia, unspecified
CPT/HCPCS: 80061; 80076; 84439; 84443; 84481

== ENCOUNTER → 2021-05-11 15:54 | Outpatient (CLI) | payer MEDICARE, BC, SELFPAY ==
[2021-01-25 13:11] VITALS: BMI 48.3
--- NOTE | 2021-05-11 16:08 | VDLE_ITS ---
Reason For Study: Pain in lower legs RIGHT LEFT GSV is normal. GSV is normal. CFV is compressible, spontaneous, phasic, CFV is compressible, spontaneous, phasic, competent and demonstrates normal competent, and demonstrates normal augmentation. augmentation. FV is compressible, spontaneous, phasic, FV is compressible, spontaneous, phasic, competent and demonstrates normal competent and demonstrates normal augmentation. augmentation. POP V is compressible, spontaneous, phasic, POP V is compressible, spontaneous, phasic, competent and demonstrates normal competent and demonstrates normal augmentation. augmentation. T/P Trunk is compressible. T/P Trunk is compressible. PTV is compressible. PTV is compressible. RT PerV is compressible. LT PerV is compressible. Procedure This is a venous duplex using B-mode, color flow and spectral Doppler. Exam performed in department. Bilateral FV distal visualized with color only pt unable to tolerate compression. A preliminary report was called and/or faxed to Jayesh. VL/Venous Duplex US - [place] Extrem Interpretation Summary No evidence for acute deep venous thrombosis bilateral lower extremities with p atent and compressible bilateral great saphenous veins. See the technical limitation of i nterrogation of bilateral femoral veins unable to be compressed secondary to patient's intolera nce Ordering Physician: Jovani Mcconnell Referring Physician: Jovani Mcconnell Performed By: Leonila Estrada RVT
== END ==
PROVIDERS: PCP Family Medicine; Referring Provider Family Medicine; Visit Provider Family Medicine
DX: M79.662 Pain in left lower leg (principal); M79.661 Pain in right lower leg
CPT/HCPCS: 93970

== ENCOUNTER → 2021-06-30 | Outpatient (CLI) | payer MEDICARE, BC, SELFPAY ==
[2021-06-30 17:27] LABS: Bacteria 0 SEEN /hpf (None Seen); Mucous, Urine 0 SEEN /hpf (<or=2+)
[2021-06-30 17:41] LABS: Color, Urine Yellow (Yellow); Glucose, Dipstick Normal (Normal); Ketone-Dipstick Negative (Negative); Leukocyte Esterase-Dipstick 25 /ul (Negative); Nitrite-Dipstick Negative (Negative); Occult Blood-Urine 10 /ul (Negative); Protein-Dipstick Negative (Negative); Urine Bilirubin Dipstick Negative (Negative); Urine Clarity Clear (Clear); Urine Urobilinogen Normal (Normal)
[2021-06-30 18:34] LABS: Red Blood Cells-Urine 0-5 SEEN /hpf (0-5); Squamous Epithelial Cells - UA 0-5 SEEN /hpf (5-10); White Blood Cells 0-5 SEEN /hpf (0-5)
== END | disposition home or self-care (01) ==
LOC: LABSPEC 17:18
PROVIDERS: PCP Family Medicine; Visit Provider Nurse Practitioner Adult Health
DX: R31.21 Asymptomatic microscopic hematuria (principal)
CPT/HCPCS: 81001

== ENCOUNTER → 2021-07-15 11:00 | Outpatient (CLI) | payer MEDICARE, BC, SELFPAY ==
[2021-07-15 12:50] LABS: BNP,B-Type NATRIURETIC PEPTIDE 142.6 pg/mL (0-100)
== END ==
PROVIDERS: PCP Family Medicine; Referring Provider Internal Medicine Pulmonary Disease; Visit Provider Internal Medicine Pulmonary Disease
DX: I27.20 Pulmonary hypertension, unspecified (principal); R06.02 Shortness of breath
CPT/HCPCS: 36415; 83880

== ENCOUNTER → 2021-08-04 11:29 | Outpatient (CLI) | payer MEDICARE, BC, SELFPAY ==
[2021-08-04 15:35] LABS: AST(SGOT) 22 U/L (15-37); Alanine Aminotransfer ALT/SGPT 32 U/L (13-56); Albumin, Serum 3.6 g/dL (3.2-5.0); Alkaline Phosphatase 66 U/L (45-117); Anion Gap 9 (5-15); BUN 33 mg/dL (7-18); BUN/Creat Ratio 28.7 RATIO (10-20); Calcium,Total 9.2 mg/dL (8.5-10.1); Chloride 104 mmol/L (98-107); Cholesterol 135 mg/dL (200); Creatinine, Serum 1.15 mg/dL (0.55-1.02); EST Glomerular Filtration Rate 48 mL/min (>60); Est Glom Filt Rate - Afr Amer 58 mL/min (>60); Globulin 3.6 g/dL (2.2-4.2); Glucose 91 mg/dL (74-106); High Density Lipoprotein 54 mg/dL; Potassium 4.1 mmol/L (3.5-5.1); Protein, Total 7.2 g/dL (6.4-8.2); Sodium Level 140 mmol/L (136-145); T4 Total, Thyroxin 10.7 ug/dL (4.8-13.9); Thyroid Stim Hormone (TSH) 2.96 uIU/mL (0.358-3.74); Triglycerides 91 mg/dL; Very Low Density Lipoprotein 18 mg/dL (5-40)
== END ==
PROVIDERS: PCP Family Medicine; Referring Provider Family Medicine; Visit Provider Family Medicine
DX: E03.9 Hypothyroidism, unspecified (principal); E78.5 Hyperlipidemia, unspecified
CPT/HCPCS: 36415; 80053; 80061; 84436; 84443; 84481

== ENCOUNTER 2021-12-14 09:36 | Outpatient (CLI) | payer MEDICARE, BC, SELFPAY | END 2021-12-14 23:59 | disposition home or self-care (01) | PROVIDERS: PCP Family Medicine; Referring Provider Internal Medicine Cardiovascular Disease; Visit Provider Internal Medicine Cardiovascular Disease | DX: R29.6 Repeated falls (principal); I50.30 Unspecified diastolic (congestive) heart failure; I27.21 Secondary pulmonary arterial hypertension; I11.0 Hypertensive heart disease with heart failure; R42 Dizziness and giddiness; R55 Syncope and collapse; Z86.711 Personal history of pulmonary embolism | CPT/HCPCS: 93225; 93226 ==

== ENCOUNTER 2022-01-06 11:41 | Outpatient (CLI) | payer MEDICARE, BC, SELFPAY ==
--- NOTE | 2022-01-06 11:44 | RAD_ITS ---
STUDY: X-RAY - PELVIS AND BILATERAL HIPS REASON FOR EXAM: Female, 81 years old. PAIN TECHNIQUE: AP view of the pelvis.? 2 views of the right hip, and 2 views of the left hip were obtained. COMPARISON: None. FINDINGS: There is a non-specific bowel gas pattern. Normal visualized soft tissue structures. Degenerative changes of the lumbar spine. IVC filter overlies L4. Normal bilateral iliac wings, sacroiliac joints and visualized sacrum. Normal bilateral superior and inferior pubic rami. Normal pubic symphysis. Normal bilateral ischial tuberosities. There are osteoarthritic changes of the right femoral head with marginal osteophyte formation. There is osteoarthritic spur formation of the right acetabular rim. There is mild articular joint space narrowing of the right hip. There are osteoarthritic changes of the left femoral head with marginal osteophyte formation. There is osteoarthritic spur formation of the left acetabular rim. There is moderate articular joint space narrowing of the left hip. Calcific density overlying the medial head (including lesser trochanter) may represent intra-articular loose body versus overlying soft tissue/myositis ossification (chronic-appearing). RAD/Hips B/L min 2 views w/ Pelvis IMPRESSION: No fracture or malalignment. Left worse than right hip osteoarthrosis. Electronically Signed: John Gallo MD ([place]) at 15:23 EST Reading Location ID and State: [id number] [place] , Service support ,
--- NOTE | 2022-01-06 11:44 | RAD_ITS ---
STUDY: X-RAY - LEFT SHOULDER REASON FOR EXAM: Female, 81 years old. fell 2 weeks ago on left shoulder, just recently started to hurt TECHNIQUE: 3 view(s) of the shoulder. COMPARISON: None. FINDINGS: Normal glenohumeral articulation. There is hypertrophic osteoarthrosis of the acromioclavicular joint with inferior osseous spur formation. Normal acromion. Normal humeral head and visualized proximal humerus. There is periarticular soft tissue calcification consistent with a calcific tendinitis. Normal visualized pulmonary apex. RAD/Shoulder min 2 Views IMPRESSION: Acromioclavicular joint arthrosis with inferior spurring. Calcific tendinitis. No fracture or malalignment. Electronically Signed: John Gallo MD ([place]) at 15:21 EST Reading Location ID and State: [id number] , Service support ,
== END 2022-01-06 23:59 | disposition home or self-care (01) ==
LOC: MTRAD 11:42
PROVIDERS: PCP Family Medicine; Referring Provider Family Medicine; Visit Provider Family Medicine
DX: M25.512 Pain in left shoulder (principal); M25.551 Pain in right hip
CPT/HCPCS: 73030; 73521

== ENCOUNTER 2022-02-06 14:04 | Outpatient (CLI) | payer MEDICARE, BC, SELFPAY ==
[2022-02-06 16:09] LABS: ALB/GLOB Ratio 1.2 RATIO (0.9-2.4); AST(SGOT) 25 U/L (15-37); Alanine Aminotransfer ALT/SGPT 32 U/L (13-56); Albumin, Serum 4.1 g/dL (3.2-5.0); Alkaline Phosphatase 79 U/L (45-117); Anion Gap 5 (5-15); BUN 30 mg/dL (7-18); BUN/Creat Ratio 25.2 RATIO (10-20); Calcium,Total 9.4 mg/dL (8.5-10.1); Chloride 101 mmol/L (98-107); Cholesterol 151 mg/dL (200); Creatinine, Serum 1.19 mg/dL (0.55-1.02); EST Glomerular Filtration Rate 46 mL/min (>60); Est Glom Filt Rate - Afr Amer 56 mL/min (>60); Free T3 1.7 pg/mL (2.18-3.98); Globulin 3.5 g/dL (2.2-4.2); Glucose 91 mg/dL (74-106); High Density Lipoprotein 54 mg/dL; Potassium 4.2 mmol/L (3.5-5.1); Protein, Total 7.6 g/dL (6.4-8.2); Sodium Level 137 mmol/L (136-145); T4 Free Direct 1.08 ng/dL (0.76-1.46); Thyroid Stim Hormone (TSH) 2.44 uIU/mL (0.358-3.74); Triglycerides 118 mg/dL; Very Low Density Lipoprotein 24 mg/dL (5-40)
== END 2022-02-06 23:59 | disposition home or self-care (01) ==
LOC: MFPLAB 14:07
PROVIDERS: PCP Family Medicine; Visit Provider Family Medicine
DX: E78.5 Hyperlipidemia, unspecified (principal); E03.9 Hypothyroidism, unspecified
CPT/HCPCS: 36415; 80053; 80061; 84439; 84443; 84481

== ENCOUNTER → 2022-03-03 | Outpatient (CLI) | payer MEDICARE, BC, SELFPAY ==
--- NOTE | 2022-03-03 10:05 | RAD_ITS ---
STUDY: X-RAY - LUMBAR SPINE REASON FOR EXAM: Female, 81 years old. PAIN IN LEGS, WORSE IN THE RIGHT LEG. PAIN RADIATES FROM LOWER BACK DOWN TO LEGS LOW BACK PAIN TECHNIQUE: XR Spine Lumbar 2 or 3 Views COMPARISON: None FINDINGS: Normal lumbar lordosis. There is no substantial scoliosis. There is a Grade 1 anterolisthesis of L4 on L5. There is multilevel endplate spondylosis of the lumbar vertebrae. There is multi-level degenerative disc disease with multi-level disc space narrowing. An IVC filter is in place. The soft tissue structures are unremarkable. RAD/Lumbar Spine 2 or 3 Views IMPRESSION: Degenerative changes of the spine, as detailed above. Electronically Signed: Geraldo Denney MD at 21:02 EDT ,
== END | disposition home or self-care (01) ==
LOC: RAD 09:54
PROVIDERS: PCP Family Medicine; Referring Provider Anesthesiology Pain Medicine; Visit Provider Anesthesiology Pain Medicine
DX: M51.16 Intervertebral disc disorders with radiculopathy, lumbar region (principal); M79.604 Pain in right leg; M79.605 Pain in left leg
CPT/HCPCS: 72100

== ENCOUNTER 2022-03-09 15:00 | Outpatient (RCR) | payer MEDICARE, BC, SELFPAY ==
--- NOTE | 2022-01-10 15:53 | HP.PTEVAL ---
Patient's Visit Information OPAL SHIPLEY is a 81 year old F referred to Physical Therapy by Dr. Jovani Mcconnell MD with a diagnosis of B hip and L shoulder OA. Date of Evaluation: 01/10/22 Physical Therapist: Geraldo Davis, PT, ATC - Visit Plan Frequency: 2-3x /Week Duration: 4-6 Weeks Plan: B LE: strengthening, balance and proprio, gait training, core stab, nustep, and HEP. L shoulder: rotator cuff strengthening, overhead pulleys, scap stab ex's, and HEP - Subjective Pt reports she has had L shoulder pain for the past 2 weeks, and B hip pain for the past month. Pt reports she had xrays of B hips and L shoulder which reveal OA of both regions. Pt reports she has bad balance and would like to be able to improve that. Pt reports she does try to do a lot around home to keep moving, however she continues to debilitate at this time. Pt also notes she has trouble performing standing activity towards the end og her day. Pt has good sensation in her feet. Pt reports she had a recent fall 2 weeks ago which doesnt involve any significant injuries. Pt has 3 stairs into house and has difficulty with negotiation them at this time. Pt reports - Pain R hip Pain Intensity (Out of 10): 5 Pain Intensity Range: 10 L hip Pain Intensity (Out of 10): 0 Pain Intensity Range: 0 L shoulder Pain Intensity (Out of 10): 5 - Objective Neuro: L L4-5 dermatomes are hyposensitive to light touch. All other LE sensation is WNL to light touch. ROM: B LE's WFL. MMT: L hip flex= 23, knee flex=19, knee ext= 15; R hip flex= 18, knee flex= 16, knee ext= 19. Gait: 100 feet with WW and SBAx1 until needing to rest - Balance/Special Test Scores Lower Extremity Functional Score: 14 - Goals Goal 1:: Decrease L shoulder pain x 50% to aid with sleep Goal Time Frame: 4-6 Weeks Goal 2:: Decrease B hip pain x 50% to aid with increasing tolerance for ambulation Goal Time Frame: 4-6 Weeks Goal 3:: Increase B LE strength x 3-5 #F to aid with increasing ease of stair negotiation Goal Time Frame: 4-6 Weeks Goal 4:: Pt will be able to ambulate 300 feet to aid with community ambulation Goal Time Frame: 4-6 Weeks Goal 5:: I with HEP - Rehabilitation Potential Physical Therapy Diagnosis: Pt has L shoulder and B hip pain and weakness secondary to OA Rehabilitation Potential: Good - Anticipated Interventions Patient/Client Instruction: Educate patient on: Condition, Plan of Care For the Purpose of:: To improve self management Therapeutic Exercise to Include: Strength training, Endurance training, Balance training, Gait and locomotor training, Active ROM, Dynamic Lumbar Stabilization, Scapular Strength/Stabilization For the Purpose of:: To decrease pain, To increase ROM, To improve muscle performance and motor function Thank you for the opportunity to evaluate your patient. For Medicare and Medicare HMO plans, please review the plan of care and approve it. It will need to be FAXED BACK to us at [phone] for Medicare purposes. For Medicare only, by signing this I certify the plan of care. Please let me know if there are questions or concerns regarding this plan of care. Physician Signature: Date:
--- NOTE | 2022-02-10 16:02 | HP.PTREVAL ---
Dr. Jovani Mcconnell MD, It has been my pleasure to treat OPAL SHIPLEY over the last 9 visits for B hip and L shoulder OA. Please see the progress note below for an update on the physical therapy plan of care! Subjective: Pt reports she feels like she is getting stronger at this time Objective/Function: L shoulder pain is 6/10 currently. L hip pain is 4/10, R hip pain is 7/10. Pt is able to ambulate 230 feet until needing a rest. Pt is progressing with strength at this time Plan Plan: B LE: strengthening, balance and proprio, gait training, core stab, nustep, and HEP. L shoulder: rotator cuff strengthening, overhead pulleys, scap stab ex's, and HEP Balance/Gait/Functional tests - Balance/Special Test Scores Lower Extremity Functional Score: 19 Goals Goal 1:: Decrease L shoulder pain x 50% to aid with sleep Goal Time Frame: 4-6 Weeks Goal Progress: Progressing Goal 2:: Decrease B hip pain x 50% to aid with increasing tolerance for ambulation Goal Time Frame: 4-6 Weeks Goal Progress: Progressing Goal 3:: Increase B LE strength x 3-5 #F to aid with increasing ease of stair negotiation Goal Time Frame: 4-6 Weeks Goal Progress: Progressing Goal 4:: Pt will be able to ambulate 300 feet to aid with community ambulation Goal Time Frame: 4-6 Weeks Goal Progress: Progressing Goal 5:: I with HEP Goal Progress: Progressing Anticipated Interventions Patient/Client Instruction: Educate patient on: Condition, Plan of Care For the Purpose of:: To improve self management Therapeutic Exercise to Include: Strength training, Endurance training, Balance training, Gait and locomotor training, Active ROM, Dynamic Lumbar Stabilization, Scapular Strength/Stabilization For the Purpose of:: To decrease pain, To increase ROM, To improve muscle performance and motor function Please do not hesitate to contact me at [phone] by phone or if you have questions or concerns regarding this new plan of care! Sincerely, Geraldo Davis, PT, ATC
--- NOTE | 2022-03-09 16:10 | HP.PTDCSUM ---
It has been my pleasure to treat OPAL SHIPLEY referred by Dr. Jovani Mcconnell MD, with the diagnosis of B hip and L shoulder OA for a total of 16 visit(s). Discharge Date: Please see the following information for a summary of their discharge status. Subjective: I just got injections in my hips. I am really tired R hip Pain Intensity (Out of 10): 0 L hip Pain Intensity (Out of 10): 0 L shoulder Pain Intensity (Out of 10): 0 % Improvement: 25 Objective/Function: MMT: R hip flex= 19, knee flex= 18, knee ext= 21; L hip flex= 18, knee ext= 19, knee flex= 23. Pain: L shoulder, and B hips are currently 0/10. Pt is now I with HEP. assessable Rx goals achieved this date Goal 1:: Decrease L shoulder pain x 50% to aid with sleep Goal Progress: Goal Met Goal 2:: Decrease B hip pain x 50% to aid with increasing tolerance for ambulation Goal Progress: Goal Met Goal 3:: Increase B LE strength x 3-5 #F to aid with increasing ease of stair negotiation Goal Progress: Progressing Goal 4:: Pt will be able to ambulate 300 feet to aid with community ambulation Goal Progress: Unable to test today Goal 5:: I with HEP Goal Progress: Goal Met Plan: Discharge to HEP If there are questions or concerns regarding this patient's physical therapy, please feel free to call me at [phone]. Thank you for the referral of this patient. Sincerely, Geraldo Davis, PT, ATC Balance/Gait/Functional tests - Balance/Special Test Scores Lower Extremity Functional Score: 28
== END 2022-03-09 19:00 | disposition home or self-care (01) ==
LOC: PT 15:00
PROVIDERS: PCP Family Medicine; Referring Provider Family Medicine; Visit Provider Family Medicine
DX: M16.9 Osteoarthritis of hip, unspecified (principal); M19.019 Primary osteoarthritis, unspecified shoulder
CPT/HCPCS: 97110; 97161; 97164

== ENCOUNTER → 2022-03-20 | Outpatient (CLI) | payer MEDICARE, BC, SELFPAY ==
--- NOTE | 2022-03-20 16:50 | RAD_ITS ---
STUDY: X-RAY - RIGHT KNEE REASON FOR EXAM: Female, 81 years old. pain/injury TECHNIQUE: 3 view(s) of the knee. COMPARISON: None. FINDINGS: Normal visualized distal femur. Normal visualized proximal tibia and fibula. Normal proximal tibiofibular articulation. There is severe degenerative arthrosis of the medial femorotibial compartment with severe joint space narrowing. For There is severe degenerative arthrosis of the lateral femorotibial compartment with severe joint space narrowing. There is severe degenerative arthrosis of the patellofemoral articulation. Multiple large calcified bodies within the knee joint. The soft tissue structures are unremarkable. RAD/Knee 3 Views IMPRESSION: Degenerative arthrosis. Electronically Signed: Thony Chery MD at 17:31 EDT ,
--- NOTE | 2022-03-20 16:50 | RAD_ITS ---
STUDY: X-RAY - LEFT KNEE REASON FOR EXAM: Female, 81 years old. pain/injury TECHNIQUE: 3 view(s) of the knee. COMPARISON: 12/13/2018 FINDINGS: Normal visualized distal femur. Healed fracture of the proximal shaft of the fibula. Normal proximal tibiofibular articulation. Status post total knee arthroplasty. The prosthesis appears located. No ostial lysis to suggest loosening.. The soft tissue structures are unremarkable. RAD/Knee 3 Views IMPRESSION: Normal x-ray examination of the knee after total knee arthroplasty. Electronically Signed: Thony Chery MD at 17:30 EDT ,
== END | disposition home or self-care (01) ==
PROVIDERS: PCP Family Medicine; Referring Provider Nurse Practitioner Family; Visit Provider Nurse Practitioner Family
DX: M25.561 Pain in right knee (principal); M25.562 Pain in left knee
CPT/HCPCS: 73562

== ENCOUNTER 2022-04-11 02:37 | Emergency (ER) | payer MEDICARE, BC, SELFPAY ==
[2022-04-11 02:42] VITALS: BP 130/74; PULSE 75; RESP 18; TEMP 36.7; O2SAT 97; BMI 45.8
--- NOTE | 2022-04-11 02:50 | RAD_ITS ---
STUDY: X-RAY - LEFT FOOT CLINICAL: Female, 82 years old. injury TECHNIQUE: 3 view(s) of the foot. COMPARISON: None. FINDINGS: Generalized osteopenia. There is a large plantar calcaneal spur. Deformity of the distal tibia with callus formation, heterogeneous trabecular pattern, sclerosed deformity of the tibial articular surface. Arthropathy of the visualized subtalar, talonavicular, calcaneocuboid, tarsal and tarsometatarsal articulations. Normal metatarsi. Normal metatarsophalangeal joint of the great toe. Normal tibial and fibular sesamoid bones. Normal interphalangeal joint of the great toe. Normal phalanges of the great toe. Normal second through fifth metatarsophalangeal joints. Deformity along the base of the fifth phalanx. Otherwise age-appropriate interphalangeal joints and phalanges of the lesser toes. The soft tissue structures are unremarkable. There is arteriosclerosis. RAD/Foot min 3 Views IMPRESSION: Deformity of the fifth proximal phalanx, age is indeterminate. Clinical correlation and correlation to point of maximum tenderness recommended. Osteoporosis, degenerative changes, arteriosclerosis, presumed remote injury distal tibia. Electronically Signed: Latrice Petty MD at 3:16 EDT Reading Location ID and State: , Service support ,
--- NOTE | 2022-04-11 02:52 | EDS_ITS ---
HPI History of Present Illness Chief Complaint: Lower Extremity Injury Informant: patient Narrative Narrative: Presents by EMS from home left foot injury while getting on the bed. She states she stepped wrong falling down onto her foot. She was stuck for 25 minutes life alert was noted. No head injuries. Patient on warfarin history of PE and DVTs with factor V Leiden history. She gets her INR checked every 2 weeks. No bleeding. She ambulates with a walker at baseline. Denies neck or back pain. No chest pains. [facility] Medical History Acute kidney injury Carpal tunnel syndrome Chronic anticoagulation CKD (chronic kidney disease) COPD (chronic obstructive pulmonary disease) Essential hypertension Fall Fracture of right radius History of deep venous thrombosis History of pulmonary embolus (PE) (2008) History of ulcerative colitis Hyperkalemia Hyperlipidemia Hypotension Obesity Obstructive sleep apnea Presence of IVC filter Pulmonary fibrosis Restless leg syndrome RLS (restless legs syndrome) Secondary pulmonary arterial hypertension Thrombocytopenia Home Medications rosuvastatin 10 mg PO QHS 05/13/15 [History Last Taken 01/11/20] calcium carbonate-vitamin D3 1 tab PO DAILY 10/23/15 [History Last Taken 01/11/20] pyridoxine (vitamin B6) 100 mg PO DAILY 10/23/15 [History Last Taken 01/12/20] sulfasalazine 1,000 mg PO BID 10/23/15 [History Last Taken 01/12/20] thiamine HCl (vitamin B1) 100 mg PO DAILY 10/23/15 [History Last Taken 10/22/17] amitriptyline 100 mg PO QHS 01/30/17 [History Last Taken 01/11/20] glucosamine [id number]-[id number] 1 ea PO BID 01/30/17 [History Last Taken 01/12/20] mometasone-formoterol 1 puff IH BID 01/30/17 [History Last Taken 01/12/20] nystatin 1 applic TOPICAL TID PRN 10/16/17 [History Last Taken Unknown] metoprolol succinate 25 mg tablet,extended release 24 hr 25 mg PO DAILY 90 Days #90 06/21/18 [History Last Taken 01/12/20] acetaminophen 650 mg PO DAILY 01/05/20 [History Last Taken 01/09/20] pramipexole 1.5 mg PO QHS 01/12/20 [History Last Taken 01/11/20] tramadol 50 mg PO Q6H PRN PRN 01/12/20 [History Last Taken 01/12/20] warfarin 5 mg PO DAILY 01/12/20 [History Last Taken 01/11/20] loratadine 10 mg tablet 10 mg PO DAILY PRN 05/04/20 [History Last Taken Unknown] meloxicam 15 mg tablet 15 mg PO DAILY PRN tab 05/04/20 [History Last Taken Unknown] cholecalciferol (vitamin D3) 50 mcg (2,000 unit) tablet 2,000 unit PO BID tablet 01/25/21 [History Last Taken Unknown] cyanocobalamin (vitamin B-12) 5,000 mcg capsule 5,000 mcg PO DAILY 01/25/21 [History Last Taken Unknown] duloxetine 60 mg capsule,delayed release 60 mg PO .QOD cap 01/25/21 [History Last Taken Unknown] folic acid 400 mcg tablet 400 mcg PO QHS tablet 01/25/21 [History Last Taken Unknown] levothyroxine 175 mcg tablet 175 mcg PO DAILY tablet 01/25/21 [History Last Taken Unknown] sodium chloride 0.65 % nasal spray aerosol 2 spray INTRANASAL Q2H PRN 01/25/21 [History Last Taken Unknown] vitamins A,C,S-blar-grbyuk 14,320 unit-226 mg-200 unit capsule 1 cap PO BID 01/25/21 [History Last Taken Unknown] mirabegron 25 mg tablet,extended release 24 hr 25 mg PO DAILY tab 01/24/22 [History Last Taken Unknown] furosemide 40 mg tablet 40 mg PO DAILY #90 tab 03/08/22 [Rx Last Taken Unknown] Allergy/AdvReac Type Severity Reaction Status Date / Time erythromycin base Allergy Mild unknown Verified 04/11/22 02:38 aspirin [From Robaxisal] Allergy Unknown Verified 04/11/22 02:38 digoxin [From Lanoxin] Allergy Unknown Verified 04/11/22 02:38 etodolac [From Lodine] Allergy Unknown Verified 04/11/22 02:38 ibuprofen [From Motrin] Allergy Unknown Verified 04/11/22 02:38 meclizine HCl [From Antivert] Allergy Unknown Verified 04/11/22 02:38 meclofenamate sodium Allergy Unknown Verified 04/11/22 02:38 [From Meclomen] methocarbamol Allergy Unknown Verified 04/11/22 02:38 [From Robaxisal] nabumetone [From Relafen] Allergy Unknown Verified 04/11/22 02:38 naproxen Allergy Unknown Verified 04/11/22 02:38 sulfamethoxazole Allergy Unknown Verified 04/11/22 02:38 [From Bactrim] trimethoprim [From Bactrim] Allergy Unknown Verified 04/11/22 02:38 Penicillins AdvReac Intermediate Diarrhea Verified 04/11/22 02:38 Family History Father Prostate cancer Brother Heart disease Mother Parkinsons disease Surgical History H/O colonoscopy H/O right heart catheterization (04/11/19) History of appendectomy History of basal cell carcinoma excision History of carpal tunnel surgery of right wrist History of cholecystectomy History of total left knee replacement (12/19/07) S/P appendectomy S/P cholecystectomy S/P Mohs surgery for basal cell carcinoma Status post total left knee replacement Social History Smoking Status: Former smoker how long ago did patient quit smokin years ago alcohol intake: never caffeine: Yes Type: coffee Number of servings: 1 ROS ROS ED Constitutional Constitutional ED: Denies chills, fever(s) or sweats Eyes Eyes: Denies change in vision ENT ENT ED: Denies dysphagia or sore throat Cardiovascular Cardiovascular: Denies chest pain, leg edema, palpitations or racing heartbeat Respiratory/Chest Respiratory/Chest: Denies cough, dyspnea or dyspnea on exertion Gastrointestinal Gastrointestinal: Denies abdominal pain, diarrhea, nausea or vomiting Genitourinary Genitourinary ED: Denies dysuria, hematuria or urinary frequency Musculoskeletal Musculoskeletal: Reports other Details: Left foot injury ; Denies back pain, extremity pain or neck pain Integumentary Denies rash or wounds Neurologic Neurologic: Denies headache(s), paresthesias or weakness EXAM Physical Exam Const Vital Signs: 04/11/22 02:42 Temperature 98.1 F Temperature Source Oral Pulse Rate 75 Respiratory Rate 18 Blood Pressure 130/74 H Blood Pressure Mean 92 Pulse Ox 97 Oxygen Delivery Method Room Air Positive well nourished and well developed General Appearance ED: well developed and NAD HEENT Reports moist mucous membranes normocephalic and atraumatic Eyes PERRL, EOMs intact bilaterally and conjunctivae normal General Eye ED: Yes normal appearance of both eyes Neck no lymphadenopathy and supple General: Negative for tenderness Chest Wall Chest: Negative for tenderness Resp normal respiratory effort and normal air movement Effort and Inspection: symmetric chest movement; Negative for respiratory distress Cardio regular rate, regular rhythm and no murmurs Peripheral Pulses: pulses 2+ throughout GI normal to inspection, nondistended, normoactive bowel sounds and non-tender Palpation: Negative for guarding or rebound tenderness present Back/Spine no CVA tenderness and no thoracic nor lumbar tenderness Extremity Extremity Narrative: Left lower extremity: Negative logroll. There is healing bruising on the proximal tib-fib. There is no ankle tenderness there is some tenderness at the dorsal second and third metatarsals. There is no deformities. Skin is intact. Neuro vas intact distally. Right lower extremity: Negative logroll. Healing ecchymosis proximal tib-fib. No ankle or foot tenderness. Neuro vas intact distally. Upper extremities: Full range of motion without deformities or pain. Neuro vas intact distally. General Extremety ED: Negative for edema or tenderness General Extremity: Negative for edema Neuro oriented x3 and no sensory deficits noted Sensorium / Orientation: awake and alert Skin no rashes or lesions noted and no wounds MDM MDM MDM Narrative Medical decision making narrative: Patient mechanical fall isolated left foot injury. Three-view x-ray left foot reviewed by myself shows no fractures or dislocations. Bony spurs noted. She declined any pain medicines. Deyvi wrap postop shoe to left foot. She is able to ambulate with a walker and get around. She will use Tylenol as needed for pain. She will follow-up with her PCP. She is discharged with family. Radiography Diagnostic Testing: Clinical Impression(s) from Imaging Studies Foot X-Ray 04/11/22 02:50 IMPRESSION: Deformity of the fifth proximal phalanx, age is indeterminate. Clinical correlation and correlation to point of maximum tenderness recommended. Osteoporosis, degenerative changes, arteriosclerosis, presumed remote injury distal tibia. Electronically Signed: Latrice Petty MD at 3:16 EDT Reading Location ID and State: , Service support , Discharge Plan Triage Chief Complaint: Lower Extremity Injury ED Provider: Faraz Camp Dx/Rx/DC Orders Clinical Impression: Sprain of foot, left, Superficial bruising of lower leg Instructions: Bruises (Contusions), ED Foot Sprain Prescriptions: No Action metoprolol succinate 25 mg tablet extended release 24 hr 25 mg PO DAILY 90 Days Qty: 90 RF: 0 folic acid 400 mcg tablet 400 mcg PO QHS RF: 0 meloxicam 15 mg tablet 15 mg PO DAILY PRNRF: 0 duloxetine 60 mg capsule,delayed release(DR/EC) 60 mg PO .QOD RF: 0 levothyroxine 175 mcg tablet 175 mcg PO DAILY RF: 0 cholecalciferol (vitamin D3) 50 mcg (2,000 unit) tablet 2,000 unit PO BID RF: 0 sodium chloride [[place] Nasal] 0.65 % aerosol,spray 2 spray INTRANASAL Q2H PRNRF: 0 Healthy Eyes SuperVision 14,320-226-200 frbh-nb-elre capsule 1 cap PO BID RF: 0 cyanocobalamin (vitamin B-12) 5,000 mcg capsule 5,000 mcg PO DAILY RF: 0 Myrbetriq 25 mg tablet extended release 24 hr 25 mg PO DAILY RF: 0 rosuvastatin 10 MG tablet 10 mg PO QHS RF: 0 sulfasalazine 500 MG tablet 1,000 mg PO BID RF: 0 thiamine HCl (vitamin B1) 100 MG tablet 100 mg PO DAILY RF: 0 pyridoxine (vitamin B6) 50 MG tablet 100 mg PO DAILY RF: 0 calcium carbonate-vitamin D3 1 EACH tablet,chewable 1 tab PO DAILY RF: 0 mometasone-formoterol 8.8 GM HFA aerosol inhaler 1 puff IH BID RF: 0 glucosamine [id number]-[id number] 1 EACH tablet 1 ea PO BID RF: 0 amitriptyline 100 MG tablet 100 mg PO QHS RF: 0 nystatin 1 APPLIC bottle 1 applic TOPICAL TID PRN (Reason: skin irritation) RF: 0 acetaminophen 650 MG tablet extended release 650 mg PO DAILY RF: 0 loratadine 10 mg tablet 10 mg PO DAILY PRN (Reason: allergies) RF: 0 warfarin 5 MG tablet 5 mg PO DAILY RF: 0 pramipexole 1.5 MG tablet 1.5 mg PO QHS RF: 0 tramadol 50 MG tablet 50 mg PO Q6H PRN PRN (Reason: Pain Or Fever) RF: 0 furosemide 40 mg tablet 40 mg PO DAILY Qty: 90 RF: 3 Primary Care Provider: Jovani Mcconnell Referrals: Jovani Mcconnell MD [Primary Care Provider] - 1 Week Activity Restrictions/Additional Instructions: Use Tylenol every 6 hours as needed. X-ray of left foot negative for any fractures. Follow-up with your doctor. Disposition Disposition: Home, Self Care Discharge Date/Time: 04/11/22 03:23
== END 2022-04-11 03:23 | disposition home or self-care (01) ==
PROVIDERS: Emergency Provider Emergency Medicine; PCP Family Medicine; Visit Provider Emergency Medicine
DX: S93.602A Unspecified sprain of left foot, initial encounter (principal); J44.9 Chronic obstructive pulmonary disease, unspecified; I27.21 Secondary pulmonary arterial hypertension; D68.2 Hereditary deficiency of other clotting factors; S80.12XA Contusion of left lower leg, initial encounter; I12.9 Hypertensive chronic kidney disease with stage 1 through stage 4 chronic kidney disease, or unspecified chronic kidney disease; N18.9 Chronic kidney disease, unspecified; W18.30XA Fall on same level, unspecified, initial encounter; Y92.003 Bedroom of unspecified non-institutional (private) residence as the place of occurrence of the external cause; E78.5 Hyperlipidemia, unspecified; G47.33 Obstructive sleep apnea (adult) (pediatric); E66.9 Obesity, unspecified; Z79.01 Long term (current) use of anticoagulants; Z79.1 Long term (current) use of non-steroidal anti-inflammatories (NSAID); Z79.899 Other long term (current) drug therapy; Z86.718 Personal history of other venous thrombosis and embolism; Z86.711 Personal history of pulmonary embolism; Z87.891 Personal history of nicotine dependence
CPT/HCPCS: 73630; 99284

== ENCOUNTER 2022-07-17 21:32 | Emergency (ER) | payer MEDICARE, BC, SELFPAY ==
[2022-07-17 21:35] VITALS: BP 133/78; PULSE 116; RESP 18; TEMP 36.2; O2SAT 97; BMI 43.4
[2022-07-17 22:32] VITALS: BP 115/77; PULSE 108; RESP 16; O2SAT 93; O2SAT 95
--- NOTE | 2022-07-17 22:37 | CT_ITS ---
STUDY: CT BRAIN WITHOUT CONTRAST REASON FOR EXAM: Female, 82 years old. fall RADIATION DOSAGE (If Supplied By Facility): CTDIvol = ( 44.99 ) mGy, DLP = ( 897.35 ) mGycm TECHNIQUE: Transaxial CT imaging of the brain was performed without administration of intravenous contrast material. Individualized dose optimization techniques were used for this CT. COMPARISON: No relevant priors. FINDINGS: Left posterior scalp hematoma. Normal calvarium. There is mild cerebral atrophy with widening of the extra-axial spaces and ventricular dilatation. There are areas of decreased attenuation within the white matter tracts of the supratentorial brain, consistent with microvascular disease changes. Normal basal ganglia and thalami. Normal brainstem. There is mild cerebellar atrophy. There is no intracranial hemorrhage. There are no findings of an acute ischemic infarction. Normal visualized paranasal sinuses. CT/Brain/Head without Contrast IMPRESSION: Chronic involutional changes of the brain. Electronically Signed: Tan Castillo DO at 23:34 EDT ,
--- NOTE | 2022-07-17 22:38 | EX.ED.DYSGE1 ---
HPI History of Present Illness Chief Complaint: Head Injury Informant: patient Onset/Context/Timing Onset: Today Current Severity: Mild Maximum Severity: Mild Narrative Narrative: Patient presents after fall at home. She states that she lost her balance and fell backwards striking the back of her head on the floor. No loss of consciousness. She is on Coumadin and has large hematoma noted over to the left posterior parietal scalp. She denies any other injury from the fall. She states her last INR check was approximate 1 month ago as she is scheduled to have it checked later this week. [facility] Medical History Acute kidney injury Carpal tunnel syndrome Chronic anticoagulation CKD (chronic kidney disease) COPD (chronic obstructive pulmonary disease) Essential hypertension Fall Fracture of right radius History of deep venous thrombosis History of pulmonary embolus (PE) (2008) History of ulcerative colitis Hyperkalemia Hyperlipidemia Hypotension Obesity Obstructive sleep apnea Presence of IVC filter Pulmonary fibrosis Restless leg syndrome RLS (restless legs syndrome) Secondary pulmonary arterial hypertension Thrombocytopenia Home Medications rosuvastatin 10 mg tablet 10 mg PO QHS CHOLESTEROL LOWERING 05/13/15 [History Last Taken 01/11/20] calcium carbonate 500 mg-vitamin D3 10 mcg (400 unit) chewable tablet 1 tab PO DAILY SUPPLEMENT 10/23/15 [History Last Taken 01/11/20] pyridoxine (vitamin B6) 50 mg tablet 100 mg PO DAILY VITAMIN SUPPLEMENT 10/23/15 [History Last Taken 01/12/20] sulfasalazine 500 mg tablet 1,000 mg PO BID COLITIS 10/23/15 [History Last Taken 01/12/20] thiamine HCl (vitamin B1) 100 mg tablet 100 mg PO DAILY SUPPLEMENT 10/23/15 [History Last Taken 10/22/17] amitriptyline 100 mg tablet 100 mg PO QHS SLEEP 01/30/17 [History Last Taken 01/11/20] glucosamine HCl 500 mg-msm 83 mg-chondroitin 400 mg tablet 1 ea PO BID SUPPLEMENT 01/30/17 [History Last Taken 01/12/20] mometasone-formoterol HFA 100 mcg-5 mcg/actuation aerosol inhaler 1 puff IH BID BREATHING 01/30/17 [History Last Taken 01/12/20] nystatin 100,000 unit/gram topical powder 1 applic topical TID PRN skin irritation 10/16/17 [History Last Taken Unknown] metoprolol succinate 25 mg tablet,extended release 24 hr 25 mg PO DAILY htn 90 days ##90 06/21/18 [History Last Taken 01/12/20] acetaminophen 650 mg tablet,extended release 650 mg PO DAILY arthritis 01/05/20 [History Last Taken 01/09/20] pramipexole 1.5 mg tablet 1.5 mg PO QHS restless legs 01/12/20 [History Last Taken 01/11/20] tramadol 50 mg tablet 50 mg PO Q6H PRN PRN Pain Or Fever 01/12/20 [History Last Taken 01/12/20] warfarin 5 mg tablet 5 mg PO DAILY blood thinner 01/12/20 [History Last Taken 01/11/20] loratadine 10 mg tablet 10 mg PO DAILY PRN allergies 05/04/20 [History Last Taken Unknown] meloxicam 15 mg tablet 15 mg PO DAILY PRN 05/04/20 [History Last Taken Unknown] cholecalciferol (vitamin D3) 50 mcg (2,000 unit) tablet 2,000 unit PO BID 01/25/21 [History Last Taken Unknown] cyanocobalamin (vitamin B-12) 5,000 mcg capsule 5,000 mcg PO DAILY 01/25/21 [History Last Taken Unknown] duloxetine 60 mg capsule,delayed release 60 mg PO .QOD 01/25/21 [History Last Taken Unknown] folic acid 400 mcg tablet 400 mcg PO QHS supplement 01/25/21 [History Last Taken Unknown] levothyroxine 175 mcg tablet 175 mcg PO DAILY 01/25/21 [History Last Taken Unknown] sodium chloride 0.65 % nasal spray aerosol (Butts Nasal) 2 spray intranasal Q2H PRN 01/25/21 [History Last Taken Unknown] vitamins A,C,M-sian-iekfrc 14,320 unit-226 mg-200 unit capsule (Healthy Eyes SuperVision) 1 cap PO BID 01/25/21 [History Last Taken Unknown] mirabegron 25 mg tablet,extended release 24 hr 25 mg PO DAILY 01/24/22 [History Last Taken Unknown] furosemide 40 mg tablet 40 mg PO DAILY heart #90 tabs 03/08/22 [Rx Last Taken Unknown] triamcinolone acetonide 0.5 % topical cream 1 applic topical BID #15 grams 05/20/22 [Rx Last Taken Unknown] Allergy/AdvReac Type Severity Reaction Status Date / Time erythromycin base Allergy Mild unknown Verified 07/17/22 21:34 aspirin [From Robaxisal] Allergy Unknown Verified 07/17/22 21:34 digoxin [From Lanoxin] Allergy Unknown Verified 07/17/22 21:34 etodolac [From Lodine] Allergy Unknown Verified 07/17/22 21:34 ibuprofen [From Motrin] Allergy Unknown Verified 07/17/22 21:34 meclizine HCl [From Antivert] Allergy Unknown Verified 07/17/22 21:34 meclofenamate sodium Allergy Unknown Verified 07/17/22 21:34 [From Meclomen] methocarbamol Allergy Unknown Verified 07/17/22 21:34 [From Robaxisal] nabumetone [From Relafen] Allergy Unknown Verified 07/17/22 21:34 naproxen Allergy Unknown Verified 07/17/22 21:34 sulfamethoxazole Allergy Unknown Verified 07/17/22 21:34 [From Bactrim] trimethoprim [From Bactrim] Allergy Unknown Verified 07/17/22 21:34 Penicillins AdvReac Intermediate Diarrhea Verified 07/17/22 21:34 Family History Father Prostate cancer Brother Heart disease Mother Parkinsons disease Surgical History H/O colonoscopy H/O right heart catheterization (04/11/19) History of appendectomy History of basal cell carcinoma excision History of carpal tunnel surgery of right wrist History of cholecystectomy History of total left knee replacement (12/19/07) S/P appendectomy S/P cholecystectomy S/P Mohs surgery for basal cell carcinoma Status post total left knee replacement Social History Smoking Status: Former smoker how long ago did patient quit smokin years ago alcohol intake: never caffeine: Yes Type: coffee Number of servings: 1 ROS ROS ED Constitutional Constitutional ED: Denies chills or fever(s) Eyes Eyes: Denies change in vision or discharge from eye(s) ENT ENT ED: Denies discharge from eye(s), rhinorrhea or sore throat Cardiovascular Cardiovascular: Denies chest pain or palpitations Respiratory/Chest Respiratory/Chest: Denies cough or dyspnea Gastrointestinal Gastrointestinal: Denies abdominal pain, diarrhea, nausea or vomiting Genitourinary Genitourinary ED: Denies difficulty urinating or dysuria Musculoskeletal Musculoskeletal: Denies back pain or extremity pain Integumentary Denies Abrasions or rash Neurologic Neurologic: Reports headache(s); Denies weakness Psychiatric Psychiatric: Denies anxiety or depression Endocrine Endocrinology: Denies polydipsia or polyuria Allergic/Immunologic Allergic/Immunologic ED: Denies lip swelling or urticaria EXAM Physical Exam Const Vital Signs: 07/17/22 21:35 07/17/22 22:32 07/17/22 22:32 Temperature 97.2 F L Temperature Source Temporal Pulse Rate 116 H 108 H Respiratory Rate 18 16 Respiratory Effort Normal Respiratory Depth Normal Respiratory Pattern Normal Blood Pressure 133/78 H 115/77 Blood Pressure Mean 96 89 Pulse Ox 97 95 93 Oxygen Delivery Method Room Air Room Air Room Air Positive well nourished and well developed General Appearance ED: well developed HEENT HEENT Narrative: Large hematoma over the posterior parietal scalp. No skin laceration. Small area of ecchymosis over the right upper eyelid. No tenderness to this area. Eyes PERRL and EOMs intact bilaterally Neck supple Neck Narrative: No C-spine tenderness. Chest Wall inspection of chest normal and palpation of chest normal Resp normal respiratory effort and clear to auscultation bilaterally Cardio regular rate and regular rhythm GI normal to inspection, nondistended, normoactive bowel sounds Palpation: soft Extremity Extremity Narrative: Small areas of ecchymosis noted to the upper legs bilaterally. No bony tenderness to this area. Neuro oriented x3 and no sensory deficits noted Sensorium / Orientation: alert Motor Exam: strength 5/5 throughout Psych mental status grossly normal Skin Skin Narrative: Hematoma and ecchymoses as noted above. MDM MDM MDM Narrative Medical decision making narrative: Patient was ordered Tylenol and an ice pack. CT scan of the head obtained along with INR. Lab Data Attestation: I reviewed the patient's lab results. Labs: Laboratory Results - last 24 hr 07/17/22 22:49 PT 25.1 H INR 2.3 Radiography Diagnostic Testing: Clinical Impression(s) from Imaging Studies Brain CT 07/17/22 22:37 IMPRESSION: Chronic involutional changes of the brain. Electronically Signed: Tan Castillo DO at 23:34 EDT , Treatment and Re-Evaluation Narrative: INR is therapeutic at 2.3. CT scan of the head shows chronic involutional changes. There is a scalp hematoma noted on my interpretation. Test results were discussed with the patient and family at bedside. Return instructions provided. Discharge Plan Triage Chief Complaint: Head Injury ED Provider: Kim Romero Dx/Rx/DC Orders Clinical Impression: Fall, Hematoma of left parietal scalp, Closed head injury Instructions: ED Scalp Contusion, ED Head Injury (Adult), ED Hematoma Prescriptions: No Action metoprolol succinate 25 mg tablet extended release 24 hr 25 mg PO DAILY 90 Days Qty: 90 Label Comments: folic acid 400 mcg tablet 400 mcg PO QHS Label Comments: takes 400mcg at night meloxicam 15 mg tablet 15 mg PO DAILY PRN Label Comments: TAKE 1 TABLET BY MOUTH EVERY DAY duloxetine 60 mg capsule,delayed release(DR/EC) 60 mg PO .QOD levothyroxine 175 mcg tablet 175 mcg PO DAILY cholecalciferol (vitamin D3) 50 mcg (2,000 unit) tablet 2,000 unit PO BID sodium chloride [Butts Nasal] 0.65 % aerosol,spray 2 spray INTRANASAL Q2H PRN Healthy Eyes SuperVision [id number] capsule 1 cap PO BID cyanocobalamin (vitamin B-12) 5,000 mcg capsule 5,000 mcg PO DAILY Myrbetriq 25 mg tablet extended release 24 hr 25 mg PO DAILY triamcinolone acetonide 0.5 % cream 1 applic topical BID Qty: 15 5RF rosuvastatin 10 MG tablet 10 mg PO QHS Label Comments: CHOLESTEROL sulfasalazine 500 MG tablet 1,000 mg PO BID Label Comments: ULCERATIVE COLITIS thiamine HCl (vitamin B1) 100 MG tablet 100 mg PO DAILY Label Comments: SUPPLEMENT pyridoxine (vitamin B6) 50 MG tablet 100 mg PO DAILY Label Comments: VITAMIN B calcium carbonate-vitamin D3 1 EACH tablet,chewable 1 tab PO DAILY Label Comments: CALCIUM mometasone-formoterol 8.8 GM HFA aerosol inhaler 1 puff IH BID Label Comments: BREATHING glucosamine [id number] 1 EACH tablet 1 ea PO BID Label Comments: SUPPLEMENT amitriptyline 100 MG tablet 100 mg PO QHS Label Comments: SLEEP nystatin 1 APPLIC bottle 1 applic TOPICAL TID PRN (Reason: skin irritation) Rx Instructions: to affected areas acetaminophen 650 MG tablet extended release 650 mg PO DAILY loratadine 10 mg tablet 10 mg PO DAILY PRN (Reason: allergies) warfarin 5 MG tablet 5 mg PO DAILY pramipexole 1.5 MG tablet 1.5 mg PO QHS tramadol 50 MG tablet 50 mg PO Q6H PRN PRN (Reason: Pain Or Fever) furosemide 40 mg tablet 40 mg PO DAILY Qty: 90 3RF Primary Care Provider: Jovani Mcconnell Referrals: Jovani Mcconenll MD [Primary Care Provider] - 5-7 Days Disposition Disposition: Home, Self Care
[2022-07-17 23:05] LABS: International Normalized Ratio 2.3; Prothrombin Time (Protime)PT. 25.1 SECONDS (11.7-14.9)
[2022-07-17] MEDS: Acetaminophen 500 MG Tablet 1000 MG PO (23:56)
[2022-07-18] VITALS: BP 98/56; PULSE 102; RESP 16; O2SAT 98
== END 2022-07-18 00:10 | disposition home or self-care (01) ==
PROVIDERS: Emergency Provider Emergency Medicine; PCP Family Medicine; Visit Provider Emergency Medicine
DX: S00.03XA Contusion of scalp, initial encounter (principal); J44.9 Chronic obstructive pulmonary disease, unspecified; I27.21 Secondary pulmonary arterial hypertension; S00.11XA Contusion of right eyelid and periocular area, initial encounter; S70.11XA Contusion of right thigh, initial encounter; S70.12XA Contusion of left thigh, initial encounter; W01.198A Fall on same level from slipping, tripping and stumbling with subsequent striking against other object, initial encounter; I12.9 Hypertensive chronic kidney disease with stage 1 through stage 4 chronic kidney disease, or unspecified chronic kidney disease; N18.9 Chronic kidney disease, unspecified; E78.5 Hyperlipidemia, unspecified; Z79.01 Long term (current) use of anticoagulants; G47.33 Obstructive sleep apnea (adult) (pediatric); E66.9 Obesity, unspecified; Z86.718 Personal history of other venous thrombosis and embolism; Z86.711 Personal history of pulmonary embolism; Z87.891 Personal history of nicotine dependence; Z96.652 Presence of left artificial knee joint
CPT/HCPCS: 36415; 70450; 85610; 99282

== ENCOUNTER → 2022-08-18 | Outpatient (CLI) | payer MEDICARE, BC, SELFPAY ==
--- NOTE | 2022-08-18 11:48 | RAD_ITS ---
STUDY: X-RAY - PELVIS AND RIGHT HIP REASON FOR EXAM: Female, 82 years old. PAIN TECHNIQUE: 4 views of the pelvis and hip. COMPARISON: None. FINDINGS: There is a non-specific bowel gas pattern. Normal visualized soft tissue structures. Normal bilateral iliac wings, sacroiliac joints and visualized sacrum. Normal bilateral superior and inferior pubic rami. Normal pubic symphysis. Normal bilateral ischial tuberosities. Moderate joint space narrowing right hip symmetric as compared to left. No fracture, subluxation or dislocation. Moderate degenerative changes lower lumbar spine. RAD/HIP, UNI W/ Pelvis 2-3 Views IMPRESSION: Moderate right hip osteoarthritis. Additional findings above. Electronically Signed: Iban Ruff MD, [facility]LEY at 17:02 EDT ,
== END | disposition home or self-care (01) ==
LOC: MTRAD 11:47
PROVIDERS: PCP Family Medicine; Referring Provider Family Medicine; Visit Provider Family Medicine
DX: M25.551 Pain in right hip (principal)
CPT/HCPCS: 73502

== ENCOUNTER 2022-08-21 18:46 | Emergency (ER) | payer MEDICARE, BC, SELFPAY ==
[2022-08-21 18:46] VITALS: BP 126/66; PULSE 102; RESP 18; TEMP 37.1; O2SAT 92; O2SAT 94; BMI 46.3
--- NOTE | 2022-08-21 19:35 | CT_ITS ---
STUDY: CT CERVICAL SPINE WITHOUT CONTRAST REASON FOR EXAM: Female, 82 years old. Fall. Head trauma. Patient on anticoagulants. RADIATION DOSAGE (If Supplied By Facility): CTDIvol = ( 26.48 ) mGy, DLP = ( 487.62 ) mGycm TECHNIQUE: High resolution transaxial imaging was performed without contrast material. Sagittal and coronal images were reconstructed. Individualized dose optimization techniques were used for this CT. COMPARISON: None FINDINGS: Normal craniovertebral junction. There is widening of the anterior atlantoaxial articulation suggesting ligamentous laxity. Normal odontoid process. There is straightening of the normal cervical lordosis. Normal vertebral bodies and posterior osseous elements. C2-3: Normal endplates. Loss of disc height without bulging annulus. Facet joint degenerative change.. Normal central canal and intervertebral neuroforamina. C3-4: Anterolisthesis of C3 on C4. There is loss of disc height. There is facet joint degenerative change without subluxation. Normal stenosis of central canal and narrowing of the intervertebral neuroforamina. C4-5: Endplate spondylosis with loss of disc height. Facet and uncovertebral joint degenerative change. Normal central canal. Stenosis of the bilateral intervertebral neuroforamina. C5-6: Endplate spondylosis. Loss of disc height bulging annulus. Facet and uncovertebral joint degenerative change. Mild stenosis of central canal and narrowing of the bilateral intervertebral neuroforamina. C6-7: Endplate spondylosis with loss of disc height and mild bulging annulus. Facet and uncovertebral joint degenerative change. Normal central canal. Narrowing bilateral intervertebral neuroforamina. C7-T1: Endplate spondylosis. Loss of disc height. Facet joint degenerative change. Normal central canal and intervertebral neuroforamina. Normal visualized soft tissue structures. CT/Spine Cervical without Contras IMPRESSION: No visualized fracture or subluxation. There is mild anterolisthesis at C3-4. If there is concern for spinal cord abnormality, MRI is recommended. Electronically Signed: Abiel Martines DO at 20:45 EDT ,
--- NOTE | 2022-08-21 19:35 | CT_ITS ---
STUDY: CT BRAIN WITHOUT CONTRAST REASON FOR EXAM: Female, 82 years old. Trauma. RADIATION DOSAGE (If Supplied By Facility): CTDIvol = ( 44.99 ) mGy, DLP = ( 863.60 ) mGycm TECHNIQUE: Transaxial CT imaging of the brain was performed without administration of intravenous contrast material. Individualized dose optimization techniques were used for this CT. COMPARISON: 07/17/2022. FINDINGS: Subcutaneous hematoma over the left posterior parietal region which appears unchanged from the prior study.. Now a smaller one over the posterior right parietal region. Normal calvarium. There is mild cerebral atrophy with widening of the extra-axial spaces and ventricular dilatation. There are areas of decreased attenuation within the white matter tracts of the supratentorial brain, consistent with microvascular disease changes. Normal basal ganglia and thalami. Normal brainstem. Normal cerebellum. There is no intracranial hemorrhage. There are no findings of an acute ischemic infarction. Normal visualized paranasal sinuses. CT/Brain/Head without Contrast IMPRESSION: 1. 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 2. Soft tissue hematomas over the posterior calvarium without fracture. Electronically Signed: Abiel Martines DO at 20:40 EDT Reading Location ID and State: [address] [place] [address] Tel [phone], Service support ,
--- NOTE | 2022-08-21 19:37 | EDS_ITS ---
HPI HPI - Fall History of Present Illness Chief Complaint: Fall Informant: patient Narrative Narrative: Patient states that she fell again. She states she has this problem. She will walk and then her legs just give out and she falls. She did not pass out. There was no syncope. She states this is a normal occurrence for her. She was last here about the 12th of last month approximately with the same thing. She did hit her head. She does complain of a headache but no neck pain or other areas. She is on Coumadin. She states her INR was 2.4 on Sunday. She has no nausea vomiting. No numbness tingling. [facility] Medical History Acute kidney injury Carpal tunnel syndrome Chronic anticoagulation CKD (chronic kidney disease) COPD (chronic obstructive pulmonary disease) Essential hypertension Fall Fracture of right radius History of deep venous thrombosis History of pulmonary embolus (PE) (2008) History of ulcerative colitis Hyperkalemia Hyperlipidemia Hypotension Obesity Obstructive sleep apnea Presence of IVC filter Pulmonary fibrosis Restless leg syndrome RLS (restless legs syndrome) Secondary pulmonary arterial hypertension Thrombocytopenia Home Medications rosuvastatin 10 mg tablet 10 mg PO QHS CHOLESTEROL LOWERING 05/13/15 [History Last Taken 01/11/20] calcium carbonate 500 mg-vitamin D3 10 mcg (400 unit) chewable tablet 1 tab PO DAILY SUPPLEMENT 10/23/15 [History Last Taken 01/11/20] pyridoxine (vitamin B6) 50 mg tablet 100 mg PO DAILY VITAMIN SUPPLEMENT 10/23/15 [History Last Taken 01/12/20] sulfasalazine 500 mg tablet 1,000 mg PO BID COLITIS 10/23/15 [History Last Taken 01/12/20] thiamine HCl (vitamin B1) 100 mg tablet 100 mg PO DAILY SUPPLEMENT 10/23/15 [History Last Taken 10/22/17] amitriptyline 100 mg tablet 100 mg PO QHS SLEEP 01/30/17 [History Last Taken 01/11/20] glucosamine HCl 500 mg-msm 83 mg-chondroitin 400 mg tablet 1 ea PO BID SUPPLEMENT 01/30/17 [History Last Taken 01/12/20] mometasone-formoterol HFA 100 mcg-5 mcg/actuation aerosol inhaler 1 puff IH BID BREATHING 01/30/17 [History Last Taken 01/12/20] nystatin 100,000 unit/gram topical powder 1 applic topical TID PRN skin irritation 10/16/17 [History Last Taken Unknown] metoprolol succinate 25 mg tablet,extended release 24 hr 25 mg PO DAILY htn 90 days ##90 06/21/18 [History Last Taken 01/12/20] acetaminophen 650 mg tablet,extended release 650 mg PO DAILY arthritis 01/05/20 [History Last Taken 01/09/20] pramipexole 1.5 mg tablet 1.5 mg PO QHS restless legs 01/12/20 [History Last Taken 01/11/20] warfarin 5 mg tablet 5 mg PO DAILY blood thinner 01/12/20 [History Last Taken 01/11/20] loratadine 10 mg tablet 10 mg PO DAILY PRN allergies 05/04/20 [History Last Taken Unknown] meloxicam 15 mg tablet 15 mg PO DAILY PRN 05/04/20 [History Last Taken Unknown] cholecalciferol (vitamin D3) 50 mcg (2,000 unit) tablet 2,000 unit PO BID 01/25/21 [History Last Taken Unknown] cyanocobalamin (vitamin B-12) 5,000 mcg capsule 5,000 mcg PO DAILY 01/25/21 [History Last Taken Unknown] folic acid 400 mcg tablet 400 mcg PO QHS supplement 01/25/21 [History Last Taken Unknown] levothyroxine 175 mcg tablet 175 mcg PO DAILY 01/25/21 [History Last Taken Unknown] vitamins A,C,K-mcoc-jqjykg 14,320 unit-226 mg-200 unit capsule (Healthy Eyes SuperVision) 1 cap PO BID 01/25/21 [History Last Taken Unknown] duloxetine 60 mg capsule,delayed release 60 mg PO Q OTHER DAY 07/27/22 [History Last Taken Unknown] folic acid 800 mcg tablet 0.8 mg PO QAM 07/27/22 [History Last Taken Unknown] mirabegron 50 mg tablet,extended release 24 hr (Myrbetriq) 50 mg PO DAILY 07/27/22 [History Last Taken Unknown] triamcinolone acetonide 0.5 % topical cream 1 applic topical BID PRN 07/27/22 [History Last Taken Unknown] warfarin 1 mg tablet 1 mg PO DAILY 07/27/22 [History Last Taken Unknown] Allergy/AdvReac Type Severity Reaction Status Date / Time erythromycin base Allergy Mild unknown Verified 08/21/22 18:50 aspirin [From Robaxisal] Allergy Unknown Verified 08/21/22 18:50 digoxin [From Lanoxin] Allergy Unknown Verified 08/21/22 18:50 etodolac [From Lodine] Allergy Unknown Verified 08/21/22 18:50 ibuprofen [From Motrin] Allergy Unknown Verified 08/21/22 18:50 meclizine HCl [From Antivert] Allergy Unknown Verified 08/21/22 18:50 meclofenamate sodium Allergy Unknown Verified 08/21/22 18:50 [From Meclomen] methocarbamol Allergy Unknown Verified 08/21/22 18:50 [From Robaxisal] nabumetone [From Relafen] Allergy Unknown Verified 08/21/22 18:50 naproxen Allergy Unknown Verified 08/21/22 18:50 sulfamethoxazole Allergy Unknown Verified 08/21/22 18:50 [From Bactrim] trimethoprim [From Bactrim] Allergy Unknown Verified 08/21/22 18:50 Penicillins AdvReac Intermediate Diarrhea Verified 08/21/22 18:50 Family History Father Prostate cancer Brother Heart disease Mother Parkinsons disease Surgical History H/O colonoscopy H/O right heart catheterization (04/11/19) History of appendectomy History of basal cell carcinoma excision History of carpal tunnel surgery of right wrist History of cholecystectomy History of total left knee replacement (12/19/07) S/P appendectomy S/P cholecystectomy S/P Mohs surgery for basal cell carcinoma Status post total left knee replacement Social History Smoking Status: Former smoker how long ago did patient quit smokin years ago alcohol intake: never caffeine: Yes Type: coffee Number of servings: 1 ROS ROS ED Constitutional Constitutional ED: Denies chills or fever(s) Eyes Eyes: Denies blurry vision, change in vision or diplopia ENT ENT ED: Denies sore throat Cardiovascular Cardiovascular: Denies chest pain or palpitations Respiratory/Chest Respiratory/Chest: Denies cough or dyspnea Gastrointestinal Gastrointestinal: Denies nausea or vomiting Genitourinary Genitourinary ED: Denies hematuria Musculoskeletal Musculoskeletal: Denies arthralgias, back pain, myalgias or neck pain Integumentary Reports other Details: head lac Neurologic Neurologic: Reports headache(s); Denies paresthesias or weakness Endocrine Endocrinology: Denies polyuria Hematologic/Lymphatic Hematologic/Lymphatic: Reports easy bruising Allergic/Immunologic Allergic/Immunologic ED: Denies urticaria EXAM Physical Exam Const Vital Signs: 08/21/22 18:46 08/21/22 18:46 08/21/22 20:14 Temperature 98.8 F Temperature Source Temporal Pulse Rate 102 H Respiratory Rate 18 18 Blood Pressure 126/66 H Blood Pressure Mean 86 Pulse Ox 94 92 97 Oxygen Delivery Method Room Air Room Air Room Air Positive well nourished and well developed Constitutional Narrative: Is actually wide-awake and very conversant. General Appearance ED: well developed and NAD HEENT HEENT Narrative: Patient has gauze wrapping on her head. Bleeding from the back. It is controlled at this point. I will get CT scan and then address this injury. I was told there were 2 small lacerations back there. Since she is on Coumadin I am checking INR first. I would prefer not to staple these prior to CT if we can avoid it since they are not actively bleeding now Eyes PERRL and EOMs intact bilaterally Neck Neck Narrative: There is no cervical tenderness or pain. Chest Wall inspection of chest normal Resp normal respiratory effort Cardio regular rate and regular rhythm GI non-tender Back/Spine no CVA tenderness Extremity Extremity Narrative: No sign of extremity trauma or injury. She states she fell back onto her buttock and then hit her head. She does not have any pain or injury to her extremities Neuro Neuro Narrative: Patient is complaining of headache but she is ANO x3. Sensorium / Orientation: alert, oriented to person, oriented to place and oriented to time Psych mental status grossly normal Skin Skin Narrative: Laceration to posterior scalp by history pending full exam as above MDM MDM MDM Narrative Medical decision making narrative: CT showed no acute process. INR is therapeutic. Procedure: Evaluation and closure of laceration: The head was unwrapped. There are 2 contusions on the back. There is one on the left that has a prominent contusion. There is a small laceration that is already has a clot in it. Its only about 5 mm long. Is not bleeding even after cleaning it. I do not think this needs to be sutured or stapled. I think I would likely cause more bleeding. The right side has less of a contusion but has a larger laceration about 1.5 cm long. It opens up slightly. It was cleaned and irrigated. It also was not bleeding. I did anesthetize it with 1% lidocaine and epinephrine a total of 1.5 cc. We scrubbed more. It was closed with 2 paige. Patient tolerated this well. Patient is still awake and alert. No other complaints. She states she has had this problem with falls all the time. This is not new or different. This was not syncope. Plan will be to get her home. Lab Data Attestation: I reviewed the patient's lab results. Labs: Laboratory Results - last 24 hr 08/21/22 19:41 PT 24.8 H INR 2.3 Radiography Diagnostic Testing: Clinical Impression(s) from Imaging Studies Brain CT 08/21/22 19:35 IMPRESSION: 1. 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 2. Soft tissue hematomas over the posterior calvarium without fracture. Electronically Signed: Abiel Martines DO at 20:40 EDT Reading Location ID and State: [employer] / [place] Tel [phone], Service support , Cervical Spine CT 08/21/22 19:35 IMPRESSION: No visualized fracture or subluxation. There is mild anterolisthesis at C3-4. If there is concern for spinal cord abnormality, MRI is recommended. Electronically Signed: Abiel Martines DO at 20:45 EDT Reading [email or web address] Tel [phone], Service support , CT scan of head and neck showed no sign of acute process. There are some tianna deidre consistent with exam. Discharge Plan Triage Chief Complaint: Fall ED Provider: Geovani John Dx/Rx/DC Orders Clinical Impression: Fall at home, Closed head injury, Laceration of scalp, Stapled skin wound, Warfarin-induced coagulopathy Prescriptions: No Action metoprolol succinate 25 mg tablet extended release 24 hr 25 mg PO DAILY 90 Days Qty: 90 Label Comments: folic acid 400 mcg tablet 400 mcg PO QHS Label Comments: takes 400mcg at night meloxicam 15 mg tablet 15 mg PO DAILY PRN Label Comments: TAKE 1 TABLET BY MOUTH EVERY DAY levothyroxine 175 mcg tablet 175 mcg PO DAILY cholecalciferol (vitamin D3) 50 mcg (2,000 unit) tablet 2,000 unit PO BID Healthy Eyes SuperVision [id number] [id number] capsule 1 cap PO BID cyanocobalamin (vitamin B-12) 5,000 mcg capsule 5,000 mcg PO DAILY duloxetine 60 mg capsule,delayed release(DR/EC) 60 mg PO Q OTHER DAY folic acid 800 mcg tablet 0.8 mg PO QAM Myrbetriq 50 mg tablet extended release 24 hr 50 mg PO DAILY triamcinolone acetonide 0.5 % cream 1 applic topical BID PRN warfarin 1 mg tablet 1 mg PO DAILY rosuvastatin 10 MG tablet 10 mg PO QHS Label Comments: CHOLESTEROL sulfasalazine 500 MG tablet 1,000 mg PO BID Label Comments: ULCERATIVE COLITIS thiamine HCl (vitamin B1) 100 MG tablet 100 mg PO DAILY Label Comments: SUPPLEMENT pyridoxine (vitamin B6) 50 MG tablet 100 mg PO DAILY Label Comments: VITAMIN B calcium carbonate-vitamin D3 1 EACH tablet,chewable 1 tab PO DAILY Label Comments: CALCIUM mometasone-formoterol 8.8 GM HFA aerosol inhaler 1 puff IH BID Label Comments: BREATHING glucosamine [id number] 1 EACH tablet 1 ea PO BID Label Comments: SUPPLEMENT amitriptyline 100 MG tablet 100 mg PO QHS Label Comments: SLEEP nystatin 1 APPLIC bottle 1 applic TOPICAL TID PRN (Reason: skin irritation) Rx Instructions: to affected areas acetaminophen 650 MG tablet extended release 650 mg PO DAILY loratadine 10 mg tablet 10 mg PO DAILY PRN (Reason: allergies) warfarin 5 MG tablet 5 mg PO DAILY pramipexole 1.5 MG tablet 1.5 mg PO QHS Primary Care Provider: Jovani Mcconnell Referrals: Jovani Mcconnell MD [Primary Care Provider] - 5 Days for suture removal Disposition Disposition: Home, Self Care
[2022-08-21 19:58] LABS: International Normalized Ratio 2.3; Prothrombin Time (Protime)PT. 24.8 SECONDS (11.7-14.9)
[2022-08-21] MEDS: Acetaminophen 500 MG Tablet 1000 MG PO (20:06)
[2022-08-21 20:14] VITALS: RESP 18; O2SAT 97
[2022-08-21 23:15] VITALS: BP 122/88; PULSE 83; RESP 18; O2SAT 98
[2022-08-21] MEDS: Lidocaine 1% /Epi 1:100 (20ml) 20 ML Vial INFILT (23:17)
== END 2022-08-21 23:18 | disposition home or self-care (01) ==
PROVIDERS: Emergency Provider Emergency Medicine; PCP Family Medicine; Visit Provider Emergency Medicine
DX: S01.01XA Laceration without foreign body of scalp, initial encounter (principal); J44.9 Chronic obstructive pulmonary disease, unspecified; W01.10XA Fall on same level from slipping, tripping and stumbling with subsequent striking against unspecified object, initial encounter; R79.1 Abnormal coagulation profile; T45.515A Adverse effect of anticoagulants, initial encounter; I12.9 Hypertensive chronic kidney disease with stage 1 through stage 4 chronic kidney disease, or unspecified chronic kidney disease; N18.9 Chronic kidney disease, unspecified; E78.5 Hyperlipidemia, unspecified; G47.33 Obstructive sleep apnea (adult) (pediatric); E66.9 Obesity, unspecified; Z79.890 Hormone replacement therapy; Z79.1 Long term (current) use of non-steroidal anti-inflammatories (NSAID); Z79.01 Long term (current) use of anticoagulants; Z79.899 Other long term (current) drug therapy; Z87.891 Personal history of nicotine dependence; Z86.718 Personal history of other venous thrombosis and embolism; Z86.711 Personal history of pulmonary embolism; Z96.652 Presence of left artificial knee joint
CPT/HCPCS: 12001; 70450; 72125; 85610; 99283; A4216

== ENCOUNTER → 2022-09-06 | Outpatient (CLI) | payer MEDICARE, BC, SELFPAY | END | disposition home or self-care (01) | LOC: PSN 08:52 | PROVIDERS: PCP Family Medicine; Referring Provider Physician Assistant Medical; Visit Provider Physician Assistant Medical | DX: R55 Syncope and collapse (principal); R29.6 Repeated falls; R42 Dizziness and giddiness | CPT/HCPCS: 93225; 93226 ==

== ENCOUNTER → 2022-09-08 | Outpatient (CLI) | payer MEDICARE, BC, SELFPAY ==
[2022-09-08 15:43] LABS: Absolute Lymphocyte Count 1.65 X10^3/uL (0.83-4.51); Absolute Neutrophil Count 4.8 X10^3/uL (2.0-7.7); Basophil# 0.04 X10^3/uL; Basophil% 0.6 % (0-1); Eosinophil# 0.09 X10^3/uL; Eosinophils% 1.3 % (0-5); Hematocrit 38.7 % (37-47); Hemoglobin 12.2 g/dL (12.0-15.0); Lymphocyte # 1.65 X10^3/ul (0.83-4.51); Lymphocyte % 23.3 % (19-41); Mean Corp Hgb Conc 31.5 g/dL (32-36); Mean Corpuscular Volume 107.8 fL (81-99); Mean Platelet Vol. 9.1 fl (6.2-12.0); Monocyte# 0.53 X10^3/uL; Monocyte% 7.5 % (0-10); NRBC Flagged by Analyzer 0 % (0-5); Neutrophil # 4.76 X10^3/uL (2.7-7.7); Platelet Count 175 K/mm3 (150-450); RBC Distribution Width CV 13.2 % (11.6-14.6); Red Blood Count 3.59 M/mm3 (4.2-5.4); White Blood Count 7.1 K/mm3 (4.4-11.0)
[2022-09-08 16:25] LABS: Anion Gap 5 (5-15); BUN 31 mg/dL (7-18); BUN/Creat Ratio 32.5 RATIO (10-20); Calcium,Total 9.8 mg/dL (8.5-10.1); Chloride 104 mmol/L (98-107); Creatinine, Serum 0.95 mg/dL (0.55-1.02); EST Glomerular Filtration Rate 60 mL/min (>60); Est Glom Filt Rate - Afr Amer 72 mL/min (>60); Glucose 90 mg/dL (74-106); Potassium 4.4 mmol/L (3.5-5.1); Sodium Level 136 mmol/L (136-145); Thyroid Stim Hormone (TSH) 2.81 uIU/mL (0.358-3.74)
== END | disposition home or self-care (01) ==
LOC: LAB 14:25
PROVIDERS: PCP Family Medicine; Referring Provider Nurse Practitioner Gerontology; Visit Provider Nurse Practitioner Gerontology
DX: R53.83 Other fatigue (principal)
CPT/HCPCS: 36415; 80048; 84443; 85025

== ENCOUNTER → 2022-10-02 | Outpatient (CLI) | payer MEDICARE, BC, SELFPAY | END | disposition home or self-care (01) | PROVIDERS: PCP Family Medicine; Visit Provider Internal Medicine Pulmonary Disease | DX: Z79.899 Other long term (current) drug therapy (principal) ==

== ENCOUNTER 2022-11-20 14:00 | Outpatient (RCR) | payer MEDICARE, BC, SELFPAY ==
--- NOTE | 2022-09-11 15:07 | HP.PTEVAL_ITS ---
Patient's Visit Information OPAL SHIPLEY is a 82 year old F referred to Physical Therapy by Dr. Jovani Mcconnell MD with a diagnosis of falls. Date of Evaluation: 09/11/22 Physical Therapist: ANDREWS Medina - Visit Plan Frequency: 2x /Week Duration: 2 Months Plan: 2X/ week for 8 weeks for Core strength, sitting posture unsupported strength, functional strength, standing and balance endurance, gait training, sit to stand transfers, with HEP - Subjective Pt had 2 major falls (both times she hit her head). She was walking the first time she fell and not sure how she fell. The last time she was trying to get something out of the fridge and fell and she fell BW and hit the fridge door in 2 places. She lives in a two story home and does not go upstairs. She has 3 steps to get up into the house.. She goes down sideways and going back up one step at a time. Her L leg gives way on her and now the R one is giving way also. To go up the stairs she pulls up on the railing. Sit to stand: She needs arms or has to pull self up. She has a lift chair. She walks around in the house with the walker. She is not safe to walk without the walker. She has a director organizational to put her socks and shoes on. She has a walk in shower that is handi cap accessible and has bars to get in and out with a seat in the shower. She reports no back issues. Pt R knee hurts and it needs replaced but she will not get it done. She had a L one replaced and her L knee gave way on her. - Pain R knee pain Pain Intensity (Out of 10): 3 - Objective Gait: walks 14 feet with rolling walker slouched posture (hanging over the walker), and barely picks up her feet. Sit to stand: takes a few attempts to get out of the chair with use of her arms. Plops back into the chair. She does not weight shift fw to get out of a chair and does not get her knees out from underneath her. Sitting on edge of mat table with unsupported legs she struggles to raise arms overhead and leans more retro due to poor core control. R hip flex 5.5#, and L hip flex 5.1#, R knee ext 10.7# and L knee ext 10.11#, R knee flex 8.6# and L knee flex 9.5#. Posture: sits with major PPT and very slouched posture, weak core and unable to sit upright unsupported very long. - Balance/Special Test Scores Lower Extremity Functional Score: 11 - Goals Goal 1:: I HEP (with or without help of granddaughter) Goal Time Frame: 6-8 Weeks Goal 2:: Be able to sit to stand using B arms on the chair rails but leaning fw to stand Goal 3:: Be able to walk 50 feet with a rolling walker with upright posture, picking up her feet and looking straight ahead Goal Time Frame: 8-12 Weeks Goal 4:: Increase LE strength (at time of the eval: R hip flex 5.5#, and L hip flex 5.1#, R knee ext 10.7# and L knee ext 10.11#, R knee flex 8.6# and L knee flex 9.5#). Goal 5:: Be able to stand unsupported for 1 min dynamically Goal Time Frame: 8-12 Weeks - Rehabilitation Potential Rehabilitation Potential: Good - Anticipated Interventions Patient/Client Instruction: Educate patient on: Condition, Plan of Care For the Purpose of:: To improve muscle performance and motor function, To improve ability to perform ADL's, To increase tolerance to activity/condition/position, To improve performance and independence with ADL's, To decrease level of supervision to perform tasks, To improve ability of physical actions for home/community/work/leisure, To improve gait and locomotor functions, To improve health of tissue, To decrease soft tissue restriction, To increase flexibility/ROM, To improve endurance, To improve balance, To improve safety with gait Therapeutic Exercise to Include: Strength training, Balance training, Body mechanics, Postural training, Flexibilty training, Gait and locomotor training, Neuromotor development, Active ROM, Dynamic Lumbar Stabilization For the Purpose of:: To improve ability to perform ADL's, To increase tolerance to activity/condition/position, To improve performance and independence with ADL's, To decrease level of supervision to perform tasks, To improve ability of physical actions for home/community/work/leisure, To improve gait and locomotor functions, To improve health of tissue, To decrease soft tissue restriction, To increase flexibility/ROM, To improve endurance, To improve balance, To improve safety with gait Functional Training to Include: Gait training For the Purpose of:: To improve gait and locomotor functions Thank you for the opportunity to evaluate your patient. For Medicare and Medicare HMO plans, please review the plan of care and approve it. It will need to be FAXED BACK to us at [phone] for Medicare purposes. For Medicare only, by signing this I certify the plan of care. Please let me know if there are questions or concerns regarding this plan of care. Physician Signature: Date:
--- NOTE | 2022-10-13 14:35 | HP.PTREVAL ---
Dr. Jovani Mcconnell MD, It has been my pleasure to treat OPAL SHIPLEY over the last 9 visits for falls. Please see the progress note below for an update on the physical therapy plan of care! Subjective: Pt feels that she has made some improvements but she still is not walking well and her balance is not good if she is not holding onto something. She also feels that she needs more than 30 min appts. Pt has fallen once since she started therapy and used her medical alert cause her granddaughter could not get her off the floor. Objective/Function: LE MMT: R hip flex 7.6# and L 8#. R knee ext 12.9# and L 10.4#. R knee flex 14.1# and L knee flex 13.9#. Able to stand 6 seconds in // bars with gait belt on and CGA and arms available if need be. Plan Plan: 2X/ week for 8 weeks for Core strength, sitting posture unsupported strength, functional strength, standing and balance endurance, gait training, sit to stand transfers, with HEP Balance/Gait/Functional tests - Balance/Special Test Scores Lower Extremity Functional Score: 11 Goals Goal 1:: I HEP (with or without help of granddaughter) Goal Time Frame: 6-8 Weeks Goal 2:: Be able to sit to stand using B arms on the chair rails but leaning fw to stand Goal Progress: Progressing Goal 3:: Be able to walk 50 feet with a rolling walker with upright posture, picking up her feet and looking straight ahead Goal Time Frame: 8-12 Weeks Goal Progress: Progressing Goal 4:: Increase LE strength (at time of the eval: R hip flex 5.5#, and L hip flex 5.1#, R knee ext 10.7# and L knee ext 10.11#, R knee flex 8.6# and L knee flex 9.5#). Goal Progress: Progressing Goal 5:: Be able to stand unsupported for 1 min dynamically Goal Time Frame: 8-12 Weeks Anticipated Interventions Patient/Client Instruction: Educate patient on: Condition, Plan of Care For the Purpose of:: To improve muscle performance and motor function, To improve ability to perform ADL's, To increase tolerance to activity/condition/position, To improve performance and independence with ADL's, To decrease level of supervision to perform tasks, To improve ability of physical actions for home/community/work/leisure, To improve gait and locomotor functions, To improve health of tissue, To decrease soft tissue restriction, To increase flexibility/ROM, To improve endurance, To improve balance, To improve safety with gait Therapeutic Exercise to Include: Strength training, Balance training, Body mechanics, Postural training, Flexibilty training, Gait and locomotor training, Neuromotor development, Active ROM, Dynamic Lumbar Stabilization For the Purpose of:: To improve ability to perform ADL's, To increase tolerance to activity/condition/position, To improve performance and independence with ADL's, To decrease level of supervision to perform tasks, To improve ability of physical actions for home/community/work/leisure, To improve gait and locomotor functions, To improve health of tissue, To decrease soft tissue restriction, To increase flexibility/ROM, To improve endurance, To improve balance, To improve safety with gait Functional Training to Include: Gait training For the Purpose of:: To improve gait and locomotor functions Please do not hesitate to contact me at [phone] by phone or if you have questions or concerns regarding this new plan of care! Sincerely, Josey Hernandez MPT
--- NOTE | 2022-11-20 15:02 | HP.PTDCSUM ---
It has been my pleasure to treat OPAL SHIPLEY referred by Dr. Jovani Mcconnell MD, with the diagnosis of falls for a total of 16 visit(s). Discharge Date: 11/20/22 Please see the following information for a summary of their discharge status. Subjective: Pt reports that she is just not moving well. She wants to see what the Dr says before scheduling more. Pt feels that she is doing better and then she backslides and not sure why. She has no knee pain now and pain in her calf. She gets that on occassion. She uses rice on her knee at home when it hurts. R knee pain Pain Intensity (Out of 10): 6 % Improvement: 40 Objective/Function: LE MMT. R hip flex 9.6# and 8.2#. R Knee ext 15.9# and 10.8#. R Knee flex 11.2# and 11.9#. Balance is not improving. Pt still has trouble walking back to dept due to flexed trunk and head and decreased strength. Goal 1:: I HEP (with or without help of granddaughter) Goal Progress: Goal Met Goal 2:: Be able to sit to stand using B arms on the chair rails but leaning fw to stand Goal Progress: Progressing Goal 3:: Be able to walk 50 feet with a rolling walker with upright posture, picking up her feet and looking straight ahead Goal Progress: Progressing Goal 4:: Increase LE strength (at time of the eval: R hip flex 5.5#, and L hip flex 5.1#, R knee ext 10.7# and L knee ext 10.11#, R knee flex 8.6# and L knee flex 9.5#). Goal Progress: Goal Met Goal 5:: Be able to stand unsupported for 1 min dynamically Goal Progress: Not Progressing Plan: DC PT back to pain kwakuaecarmen Araujo and wants to hold off of PT at this time. Discharge Comments: DC PT to HEP and back to physician (pain management) If there are questions or concerns regarding this patient's physical therapy, please feel free to call me at [phone]. Thank you for the referral of this patient. Sincerely, Josey Hernandez, MPT Balance/Gait/Functional tests - Balance/Special Test Scores Lower Extremity Functional Score: 19
== END 2022-11-20 19:00 | disposition home or self-care (01) ==
LOC: PT 14:00
PROVIDERS: PCP Family Medicine; Referring Provider Family Medicine; Visit Provider Family Medicine
DX: R29.6 Repeated falls (principal)
CPT/HCPCS: 97110; 97162; 97530

== ENCOUNTER → 2022-12-06 | Outpatient (CLI) | payer MEDICARE, BC, SELFPAY ==
[2022-12-06 18:01] LABS: Hematocrit 38.3 % (37-47); Hemoglobin 12.2 g/dL (12.0-15.0); Mean Corp Hgb Conc 31.9 g/dL (32-36); Mean Corpuscular Hgb 35.1 pg (27.0-32.0); Mean Corpuscular Volume 110.1 fL (81-99); Mean Platelet Vol. 9.3 fl (6.2-12.0); Platelet Count 166 K/mm3 (150-450); RBC Distribution Width SD 52.2 fl (35.1-43.9); Red Blood Count 3.48 M/mm3 (4.2-5.4)
[2022-12-06 18:47] LABS: BNP,B-Type NATRIURETIC PEPTIDE 125.3 pg/mL (0-100)
== END | disposition home or self-care (01) ==
LOC: MFPLAB 15:09
PROVIDERS: PCP Family Medicine; Referring Provider Family Medicine; Visit Provider Internal Medicine Pulmonary Disease
DX: R06.02 Shortness of breath (principal); I27.20 Pulmonary hypertension, unspecified; R09.02 Hypoxemia
CPT/HCPCS: 36415; 83880; 85027

== ENCOUNTER → 2022-12-18 | Outpatient (CLI) | payer MEDICARE, BC, SELFPAY ==
--- NOTE | 2022-12-18 14:11 | ECHOD_ITS ---
Reason For Study: SOB Procedure This was a 2D Doppler, Color Flow transthoracic echocardiogram. The study was technically difficult. Patient deferred definity. Patient scanned in sitting position. Exam performed in department. Left Ventricle Normal left ventricle. Left ventricular systolic function is normal. The estimated ejection fraction is 55 %. Right Ventricle Normal RV size. Normal systolic function. Atria The left atrium is moderately enlarged. Pulmonic Valve Normal pulmonic valve. Great Vessels Mildly dilated aortic root. The pulmonary artery is normal size. Pericardium/Pleural No pericardial effusion. MMode/2D Measurements & Calculations Ao root diam: 3.8 cm LAV(MOD-sp4): 103.9 ml LA A4 area: 29.8 cm2 LA dimension(2D): 4.5 cm Time Measurements MV dec time: 0.07 sec Doppler Measurements & Calculations MV E max mayank: 63.7 cm/sec Lat Peak E' Mayank: 6.3 cm/sec MV V2 max: 101.0 cm/sec MV A max mayank: 99.3 cm/sec E/E' lat: 10.1 MV max P.1 mmHg MV E/A: 0.64 MV V2 mean: 58.0 cm/sec MV mean P.6 mmHg MV V2 VTI: 19.6 cm MV dec slope: 1323 cm/sec2 Ao V2 max: 117.7 cm/sec LV V1 max: 79.4 cm/sec Ao max P.6 mmHg LV V1 max P.5 mmHg Ao V2 mean: 85.8 cm/sec LV V1 mean P.5 mmHg Ao mean P.3 mmHg LV V1 mean: 58.1 cm/sec Ao V2 VTI: 19.8 cm LV V1 VTI: 18.3 cm AV (velocity ratio): 0.92 PA V2 max: 106.5 cm/sec PA V2 mean: 78.7 cm/sec ECHO/Echo Complete Interpretation Summary Normal left ventricle. Left ventricular systolic function is normal. Mildly dilated aortic root. Ordering Physician: Filiberto Orellana V Referring Physician: Jovani Mcconnell Performed By: Mariangel Crawley RCS
== END | disposition home or self-care (01) ==
LOC: CVS 13:49
PROVIDERS: PCP Family Medicine; Visit Provider Internal Medicine Pulmonary Disease
DX: R06.02 Shortness of breath (principal); I27.20 Pulmonary hypertension, unspecified
CPT/HCPCS: 93306

== ENCOUNTER → 2023-01-05 | Outpatient (CLI) | payer MEDICARE, BC, SELFPAY ==
--- NOTE | 2023-01-05 13:05 | RAD_ITS ---
HISTORY: PAIN. TECHNIQUE: XR Knee Complete 4 Views or More. COMPARISON: 03/20/2022. FINDINGS: BONES : No acute fracture identified. Degenerative sclerosis, subchondral cysts, and abundant tricompartmental osteophytes. JOINTS: No dislocation. Moderate lateral, moderate medial, and severe medial compartment joint space narrowing. Large suprapatellar osteophytes and calcified loose bodies. RAD/Knee 4 or More Views IMPRESSION: Advanced right knee arthritis with calcified intra-articular bodies. Electronically Signed: Marcela Tidwell MD at 11:07 EST ,
== END | disposition home or self-care (01) ==
LOC: PSN 11:52
PROVIDERS: PCP Family Medicine; Visit Provider Nurse Practitioner Gerontology
DX: M25.561 Pain in right knee (principal); I47.1 Supraventricular tachycardia
CPT/HCPCS: 73564; 93225; 93226

== ENCOUNTER 2023-01-11 12:00 | Outpatient (RCR) | payer MEDICARE, BC, SELFPAY ==
--- NOTE | 2022-12-19 09:22 | HP.PTEVAL ---
Patient's Visit Information OPAL SHIPLEY is a 82 year old F referred to Physical Therapy by Dr. Jovani Mcconnell MD with a diagnosis of R hip pain. Date of Evaluation: 12/15/22 Physical Therapist: Rodolfo Guthrie DPT - Visit Plan Frequency: 2-3x /Week Duration: 6 Weeks Plan: Start with BLE and core strenthening as tolerated. Pt. is to have a lumbar injection next week (12/21). Hopefully this will increase tolerance to activities. May have to start light and slowly progress. - Subjective Pt. is here today for her initial evaluation with diagnosis of R hip pain. Pt. arrives with FWW with reports of high amounts of RLE pain. Pt. reports having increased symptoms for awhile now with no mech of injury. She is going to have an injection in her back next week. Pt. reports having constant pain. Not much change with sitting vrs standing, both are painful. Pt. denies N/T, just pain in her leg and hip. Pt. has slight improvement in symptoms with slight flexed posture, but does not relieve. Pt. has a fairly stationary life style, does not leave her home unless for appointments. She uses the FWW with all mobility. She posture is not great, but seems to be about the same as last year. Pt. is hopeful to reduce symptoms in order to get back to all household activities with decreased pain. - Pain R LE Pain Intensity (Out of 10): 8 Pain Intensity Range: 6, 10 Comment: throughout the whole leg - Objective POSTURE: Pt. had very flexed posture in stance with L lateral lean. Pt. is unable to correct secondary to stiffness and pain. PALPATION: Pt. has increased tenderness at L3-L5 on R side. She also has pain at R gluteal region. No much pain to palpation throughout the rest of her R leg. NEURO: Pt. has normal DTR in BLEs. Pt. does report some tingling and decreased sensation in distal lateral R LE, normal on medial side. ROM: Lumbar spine: flexion mod loss increase NW, extension (max loss unable to get to neutral) greater increase NW, SB R increase NW max loss, SB L min loss increase NW, rotation mod loss increase NW bilat. MMT: RLE: ankle 4/5 throughout; knee: 4/5 throughout, hip 3/5 abd, ext 3/5, flexion 4-/5. LLE ankle 5/5 throughout; knee: ext 4/5, flexion 4/5; hip: flexion 4/5, and 3/5, ext 3/5. Core strength- poor. GAIT: Pt. ambulates with FWW with very flexed posture. Pt. has overall decreased step length bilaterally. Heavy use of AD with L lateral lean. Increased RLE pain in stance. Very methodical pattern with gait. - Special Tests L/S Slump test left side: Positive L/S Slump test right side: Negative Lumbar Standing: Flexion - Mechanical Response: No effect Lumbar Standing: Flexion - Symptoms During Testing: Increases Lumbar Standing: Flexion - Symptoms After Testing: No worse Lumbar Standing: Extension - Mechanical Response: No effect Lumbar Standing: Extension - Symptoms During Testing: Increases Lumbar Standing: Extension - Symptoms After Testing: Worse Lumbar Standing: Right Side [place] - Mechanical Response: No effect Lumbar Standing: Right Side [place] - Symptoms During Testing: Increases Lumbar Standing: Right Side [place] - Symptoms After Testing: Worse Lumbar Standing: Left Side [place] - Mechanical Response: No effect Lumbar Standing: Left Side [place] - Symptoms During Testing: Increases Lumbar Standing: Left Side [place] - Symptoms After Testing: Worse - Balance/Special Test Scores Oswestry Low Back Score: 30 - Goals Goal 1:: LTG: Pt. to be I with HEP. Goal Time Frame: 2-4 Weeks Goal 2:: STG: pt. to be able to sit in a comfortable chair for 1 hour with 0-2/10 pain in her RLE. Goal Time Frame: 2 Weeks Goal 3:: LTG: Pt. to sleep with 0-2/10 pain in her RLE. Goal Time Frame: 4-6 Weeks Goal 4:: LTG: Pt. to have increased BLE and core strength by 1/2 grade throughout in order to reduce stress to lumbar spine with all functional mobility. Goal Time Frame: 4-6 Weeks - Rehabilitation Potential Physical Therapy Diagnosis: Pt. has signs and symptoms consistent with R hip pain, but with the testing today suggests more of radicular symptoms from her low back. Pt. would benefit from PT to work on ROM and LE strengthening to reduce stress on her LB. Pt. is to have injections soon, which will also hopefully reduce symptoms allowing for increased tolerance to functional mobility. Rehabilitation Potential: Fair - Anticipated Interventions Patient/Client Instruction: Educate patient on: Condition, Plan of Care, Risk Factors, Benefits of Fitness Program For the Purpose of:: To foster healthy habits, To improve decision making, To facilitate caregiver knowledge, To improve self management, To prevent re-injury, To improve ability to perform tasks related to life management Therapeutic Exercise to Include: Strength training, Power training, Coordination, Body mechanics, Postural training, Flexibilty training, Passive ROM, Active ROM, Dynamic Lumbar Stabilization For the Purpose of:: To decrease pain, To decrease swelling/inflammation, To increase ROM, To improve nutrient delivery to tissue, To increase oxygenation perfusion, To improve muscle performance and motor function, To improve ability to perform ADL's, To increase tolerance to activity/condition/position, To decrease level of supervision to perform tasks, To improve ability of physical actions for home/community/work/leisure, To improve gait and locomotor functions, To improve health of tissue Ultrasound (thermal/non thermal): Yes For the Purpose of:: To decrease pain, To decrease swelling/inflammation, To increase ROM Thank you for the opportunity to evaluate your patient. For Medicare and Medicare HMO plans, please review the plan of care and approve it. It will need to be FAXED BACK to us at [phone] for Medicare purposes. For Medicare only, by signing this I certify the plan of care. Please let me know if there are questions or concerns regarding this plan of care. Physician Signature: Date:
--- NOTE | 2023-01-11 13:38 | HP.PTDCSUM ---
It has been my pleasure to treat OPAL SHIPLEY referred by Dr. Jovani Mcconnell MD, with the diagnosis of R hip pain for a total of 7 visit(s). Discharge Date: 01/11/23 Please see the following information for a summary of their discharge status. Subjective: Pt. reports overall doing well. She has 0/10 pain in R hip and no pain in her R knee. Pt. does have 6/10 pain in her R calf. R LE Pain Intensity (Out of 10): 0 % Improvement: 50 Objective/Function: ROM: R knee: 0-5-98deg, L knee 0-0-101deg. R hip: flexion 100deg, ext lacking 15deg increase NW. L hip: flexion 95deg, abd 30deg, ext lacking 10deg increase NW. MMT: RLE: ankle 5/5 throughout; knee: ext 17#, flexion 14#; hip: flexion 12#. LLE: ankle 5/5 throughout; knee: ext 19#, flexion 21#; hip: flexion 18#. Sit to stand, very difficult without UE assist. GAIT: Pt. ambulates with FWW. Pt. has very flexed posture, increased L hip ER with decreased step length. Pt. is not having as much pain with walking. At this point in time Opal desires to continue with PT on her own. Pt. did express having some calf pain today, she reports having pain on and off for a few weeks. I checked it out, it did not feel overly warm, not shinny, and a negative homas sign. 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 Just with her history of previous blood clots, I would like her to be cautious. Pt. consents. Goal 1:: LTG: Pt. to be I with HEP. Goal Progress: Goal Met Goal 2:: STG: pt. to be able to sit in a comfortable chair for 1 hour with 0-2/10 pain in her RLE. Goal Progress: Progressing Goal 3:: LTG: Pt. to sleep with 0-2/10 pain in her RLE. Goal Progress: Goal Met Goal 4:: LTG: Pt. to have increased BLE and core strength by 1/2 grade throughout in order to reduce stress to lumbar spine with all functional mobility. Goal Progress: Progressing Plan: PT. to HEP at this point in time. Discharge Comments: Pt. was seen in PT for her R hip and general mobility. Her R hip is doing much better with PT and her injection. She is I with her current HEP and plans to continue at home. Pt. is having some calf pain, she had a negative homans today, but I want her to check it out with her local company refrigerated truck driver at her appointment tomorrow. If there are questions or concerns regarding this patient's physical therapy, please feel free to call me at [phone]. Thank you for the referral of this patient. Sincerely, Rodolfo Espinozaos, DPT Balance/Gait/Functional tests - Balance/Special Test Scores Oswestry Low Back Score: 15
== END 2023-01-11 19:00 | disposition home or self-care (01) ==
LOC: PT 12:00
PROVIDERS: PCP Family Medicine; Referring Provider Family Medicine; Visit Provider Family Medicine
DX: M25.559 Pain in unspecified hip (principal); R29.6 Repeated falls
CPT/HCPCS: 97110; 97161; 97164

== ENCOUNTER → 2023-01-15 | Outpatient (CLI) | payer MEDICARE, BC, SELFPAY ==
--- NOTE | 2023-01-15 09:57 | VDLE_ITS ---
Reason For Study: Swelling RIGHT GSV is normal. CFV is compressible, spontaneous, phasic, competent and demonstrates normal augmentation. FV is compressible, spontaneous, phasic, competent and demonstrates normal augmentation. POP V is compressible, spontaneous, phasic, competent and demonstrates normal augmentation. T/P Trunk is compressible. PTV is compressible. RT PerV is compressible. Heterogeneous, non vascular structure noted Rt Pop Fossa measuring 1.43cm x 3.52cm. Procedure This is a venous duplex using B-mode, color flow and spectral Doppler. Exam performed in department. A preliminary report was called and/or faxed to Estrella Olguin [facility] TESTER. VL/Venous Duplex US, Unilateral Interpretation Summary Deep veins of the right lower extremity are patent and compressible segmentally . There is no evidence of right lower extremity deep vein thrombosis. The right great sapheno us vein appears patent and compressible segmentally. Heterogeneous, non vascular structure noted right popliteal fossa measuring 1.4 3cm x 3.52cm. Ordering Physician: Estrella Olguin Referring Physician: Jovani Mcconnell Performed By: Khadra Scales, RDCS, RVT
== END | disposition home or self-care (01) ==
LOC: CVS 09:57
PROVIDERS: PCP Family Medicine; Visit Provider Nurse Practitioner Gerontology
DX: R60.0 Localized edema (principal)
CPT/HCPCS: 93971

== ENCOUNTER → 2023-02-01 | Outpatient (CLI) | payer MEDICARE, BC, SELFPAY ==
--- NOTE | 2023-02-01 13:28 | RAD_ITS ---
INDICATION: PAIN EXAMINATION/TECHNIQUE: X-RAY - LEFT XR Shoulder 5 VIEWS COMPARISON: January 06, 2022. FINDINGS: SOFT TISSUES: No soft tissue swelling or gas. Soft tissue calcifications superior to the humeral head likely due to calcific tendinopathy. No radiopaque foreign body. BONES/JOINTS: No acute fracture or subluxation.. Hypertrophy at the acromioclavicular articulation. Inferior spurring of the acromion. Normal alignment. Preservation of the joint space.. No sclerotic or destructive changes observed. RAD/Shoulder min 2 Views IMPRESSION: Degenerative hypertrophy at the acromioclavicular joint. Calcific tendinopathy. No significant interval changes. Electronically Signed: Brian Florentino DO at 23:42 EDT Reading Location ID and State: [facility] / [place] Tel [phone], Service support ,
== END | disposition home or self-care (01) ==
PROVIDERS: PCP Family Medicine; Referring Provider Family Medicine; Visit Provider Family Medicine
DX: M25.512 Pain in left shoulder (principal)
CPT/HCPCS: 73030

== ENCOUNTER 2023-03-16 12:00 | Outpatient (RCR) | payer MEDICARE, BC, SELFPAY ==
--- NOTE | 2023-02-13 13:17 | HP.PTEVAL ---
Patient's Visit Information OPAL SHIPLEY is a 82 year old F referred to Physical Therapy by Dr. Jovani Mcconnell MD with a diagnosis of L shoulder Pain. Date of Evaluation: 02/13/23 Physical Therapist: ANDREWS Medina - Visit Plan Frequency: 2x /Week Duration: 2 Months Plan: 2X/ week for 8 weeks for R shoulder PROM, AAROM, AROM, scapular retraction strength, postural exercises, with HEP - Subjective Pt was walking up her steps and picked up her walker to get it on the second step and heard a pop in her L shoulder and she could hardly move due to the pain. They did x-rays and she was told that they were fine. said she needed to go back to therapy. She is using a rolling walker. She is Right handed. It is not painful when she raises her L arm into flexion or across her body. She does not sleep on her L side. She has no N&T and she has some neck pain but that is baseline. - Pain L shoulder pain Pain Intensity (Out of 10): 0 Comment: 4 - Objective R handed. R shoulder AROM: flex 135, abd 170, ER 50, IR T12. L shoulder AROM: flex 85, abd 129, IR L4, ER 30. R shoulder MMT: flex 6, ABD 7.6, ER 7.6 and IR 8.5. L shoulder MMT: flex 5, ABD 5.4, ER 2, IR 5.6. Posture: rounded shoulders, flexed head, protracted shoulders. Palpation: tender under the L acromion and a little tenderness along the bicep groove on the L shoulder - Balance/Special Test Scores Quick DASH Score: 47.7250 - Goals Goal 1:: I HEP Goal Time Frame: 6-8 Weeks Goal 2:: Increase L shoulder AROM (at time of the eval R shoulder AROM: flex 135, abd 170, ER 50, IR T12. L shoulder AROM: flex 85, abd 129, IR L4, ER 30R) Goal Time Frame: 6-8 Weeks Goal 3:: Increase L shoulder strength (at time of the eval R shoulder MMT: flex 6, ABD 7.6, ER 7.6 and IR 8.5. L shoulder MMT: flex 5, ABD 5.4, ER 2, IR 5.6) Goal Time Frame: 6-8 Weeks Goal 4:: Be able to sit with more scapular retraction Goal Time Frame: 6-8 Weeks - Rehabilitation Potential Rehabilitation Potential: Good - Anticipated Interventions Patient/Client Instruction: Educate patient on: Condition, Plan of Care For the Purpose of:: To decrease pain, To decrease swelling/inflammation, To increase ROM, To improve nutrient delivery to tissue, To improve muscle performance and motor function, To improve ability to perform ADL's, To increase tolerance to activity/condition/position, To improve ability of physical actions for home/community/work/leisure, To improve health of tissue, To decrease soft tissue restriction, To increase flexibility/ROM Therapeutic Exercise to Include: Strength training, Postural training, Flexibilty training, Passive ROM, Active ROM, Scapular Strength/Stabilization For the Purpose of:: To decrease pain, To increase ROM, To improve nutrient delivery to tissue, To increase oxygenation perfusion, To improve muscle performance and motor function, To improve ability to perform ADL's, To increase tolerance to activity/condition/position, To improve performance and independence with ADL's, To decrease level of supervision to perform tasks, To improve ability of physical actions for home/community/work/leisure, To improve gait and locomotor functions, To decrease soft tissue restriction, To increase flexibility/ROM Manual Therapy Techniques to Include: Passive ROM, Soft tissue mobilization For the Purpose of:: To decrease pain, To increase ROM, To improve nutrient delivery to tissue, To improve muscle performance and motor function, To improve ability to perform ADL's Thank you for the opportunity to evaluate your patient. For Medicare and Medicare HMO plans, please review the plan of care and approve it. It will need to be FAXED BACK to us at [phone] for Medicare purposes. For Medicare only, by signing this I certify the plan of care. Please let me know if there are questions or concerns regarding this plan of care. Physician Signature: Date:
--- NOTE | 2023-03-16 12:49 | HP.PTDCSUM ---
It has been my pleasure to treat OPAL SHIPLEY referred by Dr. Jovani Mcconnell MD, with the diagnosis of L shoulder Pain for a total of 9 visit(s). Discharge Date: 03/16/23 Please see the following information for a summary of their discharge status. Subjective: Pt reports that her knee is bothering her but cant get into Dr for a shot until April 17. She does not have have pain other than when she reaches up and will feel it. Pt has bands and 2# weights at home that she has been using L shoulder pain Pain Intensity (Out of 10): 0 % Improvement: 75 Objective/Function: L shoulder AROM: flex 117, abd 129, IR T12, ER 34). L shoulder MMT: flex 7.2, ABD 7.2, ER 4, IR 8.4) Goal 1:: I HEP Goal Progress: Goal Met Goal 2:: Increase L shoulder AROM (at time of the eval R shoulder AROM: flex 135, abd 170, ER 50, IR T12. L shoulder AROM: flex 85, abd 129, IR L4, ER 30R) Goal Progress: Goal Met Goal 3:: Increase L shoulder strength (at time of the eval R shoulder MMT: flex 6, ABD 7.6, ER 7.6 and IR 8.5. L shoulder MMT: flex 5, ABD 5.4, ER 2, IR 5.6) Goal Progress: Goal Met Goal 4:: Be able to sit with more scapular retraction Goal Progress: Progressing Plan: DC PT to HEP Discharge Comments: DC PT to HEP If there are questions or concerns regarding this patient's physical therapy, please feel free to call me at [phone]. Thank you for the referral of this patient. Sincerely, Josey Hernandez, MPT Balance/Gait/Functional tests - Balance/Special Test Scores Quick DASH Score: 61.3625
== END 2023-03-16 19:00 | disposition home or self-care (01) ==
LOC: PT 12:00
PROVIDERS: PCP Family Medicine; Referring Provider Family Medicine; Visit Provider Family Medicine
DX: M25.512 Pain in left shoulder (principal)
CPT/HCPCS: 97110; 97161; 97530

== ENCOUNTER → 2023-05-02 | Outpatient (CLI) | payer MEDICARE, BC, SELFPAY ==
[2023-05-02 16:33] LABS: Anion Gap 6 (5-15); BUN 28 mg/dL (7-18); Calcium,Total 9.4 mg/dL (8.5-10.1); Chloride 106 mmol/L (98-107); Cholesterol 147 mg/dL (200); EST Glomerular Filtration Rate 56 mL/min (>60); Est Glom Filt Rate - Afr Amer 68 mL/min (>60); Glucose 78 mg/dL (74-106); High Density Lipoprotein 64 mg/dL; Potassium 4.7 mmol/L (3.5-5.1); Sodium Level 138 mmol/L (136-145); Triglycerides 86 mg/dL; Very Low Density Lipoprotein 17 mg/dL (5-40)
== END | disposition home or self-care (01) ==
LOC: MFPLAB 11:37
PROVIDERS: PCP Family Medicine; Visit Provider Family Medicine
DX: E78.5 Hyperlipidemia, unspecified (principal)
CPT/HCPCS: 36415; 80048; 80061

== ENCOUNTER 2023-06-05 15:26 | Emergency (ER) | payer MEDICARE, BC, SELFPAY ==
[2023-06-05 15:28] VITALS: BP 122/72; PULSE 109; RESP 12; TEMP 36.2; O2SAT 100
[2023-06-05 16:05] VITALS: BP 145/66; PULSE 102; PULSE 105; RESP 16; RESP 18; TEMP 36.6; O2SAT 94; O2SAT 96; BMI 45.6
--- NOTE | 2023-06-05 16:21 | EDS_ITS ---
HPI History of Present Illness Chief Complaint: Cellulitis Informant: patient Onset/Context/Timing Onset: Yesterday Context: Gradual Onset Narrative Narrative: Patient noted an area of redness and warmth around her right elbow yesterday. Area has increased in size. She has had some chills but no fever. She denies any known injury. Patient is on chronic Coumadin. [facility] Medical History Acute kidney injury Carpal tunnel syndrome Chronic anticoagulation CKD (chronic kidney disease) COPD (chronic obstructive pulmonary disease) Essential hypertension Fall Fracture of right radius History of deep venous thrombosis History of pulmonary embolus (PE) (2008) History of ulcerative colitis Hyperkalemia Hyperlipidemia Hypotension Obesity Obstructive sleep apnea Presence of IVC filter Pulmonary fibrosis Restless leg syndrome RLS (restless legs syndrome) Secondary pulmonary arterial hypertension Thrombocytopenia Home Medications rosuvastatin 10 mg tablet 10 mg PO QHS CHOLESTEROL LOWERING 05/13/15 [History Last Taken 01/11/20] sulfasalazine 500 mg tablet 1,000 mg PO BID COLITIS 10/23/15 [History Last Taken 01/12/20] amitriptyline 100 mg tablet 100 mg PO QHS SLEEP 01/30/17 [History Last Taken 01/11/20] glucosamine HCl 500 mg-msm 83 mg-chondroitin 400 mg tablet 1 ea PO BID SUPPLEMENT 01/30/17 [History Last Taken 01/12/20] mometasone-formoterol HFA 100 mcg-5 mcg/actuation aerosol inhaler 1 puff IH BID BREATHING 01/30/17 [History Last Taken 01/12/20] nystatin 100,000 unit/gram topical powder 1 applic topical TID PRN skin irritation 10/16/17 [History Last Taken Unknown] pramipexole 1.5 mg tablet 1.5 mg PO QHS restless legs 01/12/20 [History Last Taken 01/11/20] warfarin 5 mg tablet 5 mg PO DAILY blood thinner 01/12/20 [History Last Taken 01/11/20] loratadine 10 mg tablet 10 mg PO DAILY PRN allergies 05/04/20 [History Last Taken Unknown] cholecalciferol (vitamin D3) 50 mcg (2,000 unit) tablet 2,000 unit PO BID 01/25/21 [History Last Taken Unknown] folic acid 400 mcg tablet 400 mcg PO QHS supplement 01/25/21 [History Last Taken Unknown] levothyroxine 175 mcg tablet 175 mcg PO DAILY 01/25/21 [History Last Taken Unknown] vitamins A,C,I-sbup-nylufm 4,296 mcg-226 mg-90 mg capsule (Healthy Eyes SuperVision) 1 cap PO BID 01/25/21 [History Last Taken Unknown] duloxetine 60 mg capsule,delayed release 60 mg PO Q OTHER DAY 07/27/22 [History Last Taken Unknown] folic acid 800 mcg tablet 0.8 mg PO QAM 07/27/22 [History Last Taken Unknown] mirabegron 50 mg tablet,extended release 24 hr (Myrbetriq) 50 mg PO DAILY 07/27/22 [History Last Taken Unknown] triamcinolone acetonide 0.5 % topical cream 1 applic topical BID PRN 07/27/22 [History Last Taken Unknown] warfarin 1 mg tablet 1 mg PO DAILY 07/27/22 [History Last Taken Unknown] vitamin B complex (B Complex-Vitamin B12 tablet) 1 tab PO DAILY 09/08/22 [History Last Taken Unknown] calcium carbonate 500 mg-vitamin D3 10 mcg (400 unit) chewable tablet 1 tab PO BID SUPPLEMENT 01/12/23 [History Last Taken Unknown] acetaminophen 650 mg tablet,extended release 650 mg PO DAILY arthritis 04/10/23 [History Last Taken Unknown] diphenhydramine 25 mg-acetaminophen 500 mg tablet (Acetaminophen PM) 1 tab PO QHS PRN 04/10/23 [History Last Taken Unknown] hydrocodone-acetaminophen 5-325mg 5mg-325mg 0.5 tab PO DAILY 04/10/23 [History Last Taken Unknown] meloxicam 15 mg tablet 15 mg PO DAILY 04/10/23 [History Last Taken Unknown] metoprolol succinate 25 mg tablet,extended release 24 hr 50 mg PO DAILY htn 04/10/23 [History Last Taken Unknown] doxycycline monohydrate 100 mg capsule 100 mg PO BID #20 CAPSULES 06/05/23 [Rx Last Taken Unknown] Allergy/AdvReac Type Severity Reaction Status Date / Time erythromycin base Allergy Mild unknown Verified 06/05/23 15:28 aspirin [From Robaxisal] Allergy Unknown Verified 06/05/23 15:28 digoxin [From Lanoxin] Allergy Unknown Verified 06/05/23 15:28 etodolac [From Lodine] Allergy Unknown Verified 06/05/23 15:28 ibuprofen [From Motrin] Allergy Unknown Verified 06/05/23 15:28 meclizine HCl [From Antivert] Allergy Unknown Verified 06/05/23 15:28 meclofenamate sodium Allergy Unknown Verified 06/05/23 15:28 [From Meclomen] methocarbamol Allergy Unknown Verified 06/05/23 15:28 [From Robaxisal] nabumetone [From Relafen] Allergy Unknown Verified 06/05/23 15:28 naproxen Allergy Unknown Verified 06/05/23 15:28 sulfamethoxazole Allergy Unknown Verified 06/05/23 15:28 [From Bactrim] trimethoprim [From Bactrim] Allergy Unknown Verified 06/05/23 15:28 hydrocodone AdvReac Severe HALLUCINATI Verified 06/05/23 15:28 ONS Penicillins AdvReac Intermediate Diarrhea Verified 06/05/23 15:28 Family History Father Prostate cancer Brother Heart disease Mother Parkinsons disease Surgical History H/O colonoscopy H/O right heart catheterization (04/11/19) History of appendectomy History of basal cell carcinoma excision History of carpal tunnel surgery of right wrist History of cholecystectomy History of total left knee replacement (12/19/07) S/P appendectomy S/P cholecystectomy S/P Mohs surgery for basal cell carcinoma Status post total left knee replacement Social History Smoking Status: Former smoker how long ago did patient quit smokin years ago alcohol intake: never caffeine: Yes Type: coffee Number of servings: 1 ROS ROS ED Constitutional Constitutional ED: Reports chills; Denies fever(s) Eyes Eyes: Denies change in vision ENT ENT ED: Denies rhinorrhea or sore throat Cardiovascular Cardiovascular: Denies chest pain Respiratory/Chest Respiratory/Chest: Denies cough or dyspnea Gastrointestinal Gastrointestinal: Denies abdominal pain, nausea or vomiting Genitourinary Genitourinary ED: Denies dysuria Musculoskeletal Musculoskeletal: Reports extremity pain; Denies back pain Integumentary Reports rash; Denies Abrasions Neurologic Neurologic: Denies headache(s) or weakness Psychiatric Psychiatric: Denies anxiety or depression Allergic/Immunologic Allergic/Immunologic ED: Denies lip swelling or urticaria EXAM Physical Exam Const Vital Signs: 06/05/23 15:28 06/05/23 16:05 06/05/23 16:05 Temperature 97.1 F L 98 F Temperature Source Temporal Oral Pulse Rate 109 H 105 H 102 H Respiratory Rate 12 18 16 Respiratory Effort Respiratory Pattern Blood Pressure 122/72 H 145/66 H 145/66 H Blood Pressure Mean 88 92 92 Pulse Ox 100 96 94 Oxygen Delivery Method Room Air Room Air Room Air 06/05/23 16:05 Temperature Temperature Source Pulse Rate Respiratory Rate Respiratory Effort Normal Respiratory Pattern Normal Blood Pressure Blood Pressure Mean Pulse Ox Oxygen Delivery Method Positive well nourished and well developed General Appearance ED: well developed HEENT Reports normocephalic and head/scalp atraumatic Eyes PERRL and EOMs intact bilaterally Neck supple Chest Wall inspection of chest normal and palpation of chest normal Resp normal respiratory effort and clear to auscultation bilaterally Cardio regular rate, regular rhythm and no murmurs GI normal to inspection, nondistended, normoactive bowel sounds Palpation: soft Extremity Extremity Narrative: 14 cm diameter round area of erythema over the extensor portion of the right elbow. Full range of motion of the joint without difficulty. Area is warm to touch. No open wounds noted. Neuro oriented x3 and no sensory deficits noted Sensorium / Orientation: alert Motor Exam: strength 5/5 throughout Psych mental status grossly normal MDM MDM MDM Narrative Medical decision making narrative: Area of erythema is outlined with surgical marker. Patient be treated with p.o. doxycycline. Return instructions were provided. Discharge Plan Triage Chief Complaint: Cellulitis ED Provider: Kim Romero Dx/Rx/DC Orders Clinical Impression: Cellulitis Instructions: ED Cellulitis Prescriptions: New doxycycline monohydrate 100 mg capsule 100 mg PO BID Qty: 20 0RF No Action folic acid 400 mcg tablet 400 mcg PO QHS Patient Comments: takes 400mcg at night meloxicam 15 mg tablet 15 mg PO DAILY Patient Comments: TAKE 1 TABLET BY MOUTH EVERY DAY levothyroxine 175 mcg tablet 175 mcg PO DAILY cholecalciferol (vitamin D3) 50 mcg (2,000 unit) tablet 2,000 unit PO BID Healthy Eyes SuperVision [id number] capsule 1 cap PO BID duloxetine 60 mg capsule,delayed release(DR/EC) 60 mg PO Q OTHER DAY folic acid 800 mcg tablet 0.8 mg PO QAM Myrbetriq 50 mg tablet extended release 24 hr 50 mg PO DAILY triamcinolone acetonide 0.5 % cream 1 applic topical BID PRN warfarin 1 mg tablet 1 mg PO DAILY vitamin B complex [B Complex-Vitamin B12] Tablet 1 tab PO DAILY metoprolol succinate 25 mg tablet extended release 24 hr 50 mg PO DAILY diphenhydramine-acetaminophen [Acetaminophen PM] 25-500 mg tablet 1 tab PO QHS PRN hydrocodone-acetaminophen 5-325 mg tablet 0.5 tab PO DAILY rosuvastatin 10 MG tablet 10 mg PO QHS Patient Comments: CHOLESTEROL sulfasalazine 500 MG tablet 1,000 mg PO BID Patient Comments: ULCERATIVE COLITIS calcium carbonate-vitamin D3 500 mg-10 mcg (400 unit) tablet,chewable 1 tab PO BID Patient Comments: CALCIUM mometasone-formoterol 8.8 GM HFA aerosol inhaler 1 puff IH BID Patient Comments: BREATHING glucosamine [id number] 1 EACH tablet 1 ea PO BID Patient Comments: SUPPLEMENT amitriptyline 100 MG tablet 100 mg PO QHS Patient Comments: SLEEP nystatin 1 APPLIC bottle 1 applic TOPICAL TID PRN (Reason: skin irritation) Rx Instructions: to affected areas loratadine 10 mg tablet 10 mg PO DAILY PRN (Reason: allergies) acetaminophen 650 mg tablet extended release 650 mg PO DAILY warfarin 5 MG tablet 5 mg PO DAILY pramipexole 1.5 MG tablet 1.5 mg PO QHS Primary Care Provider: Jovani Mcconnell Referrals: Jovani Mcconnell MD [Primary Care Provider] - 1-2 Weeks Disposition Disposition: Home, Self Care
[2023-06-05] MEDS: Doxycycline 100 MG CAPSULE PO (17:43)
--- NOTE | 2023-06-05 17:46 | ED.RN ---
EMD aware of inability to obtain blood work x 5 attempts.
[2023-06-05 18:08] VITALS: BP 121/70; PULSE 78; RESP 16; TEMP 36.6
[2023-06-05 18:22] VITALS: BP 106/78; PULSE 88; RESP 18
== END 2023-06-05 18:22 | disposition home or self-care (01) ==
PROVIDERS: Emergency Provider Emergency Medicine; PCP Family Medicine; Visit Provider Emergency Medicine
DX: L03.113 Cellulitis of right upper limb (principal); J44.9 Chronic obstructive pulmonary disease, unspecified; I27.21 Secondary pulmonary arterial hypertension; I12.9 Hypertensive chronic kidney disease with stage 1 through stage 4 chronic kidney disease, or unspecified chronic kidney disease; N18.9 Chronic kidney disease, unspecified; E78.5 Hyperlipidemia, unspecified; Z79.01 Long term (current) use of anticoagulants; Z79.890 Hormone replacement therapy; Z79.899 Other long term (current) drug therapy; Z87.891 Personal history of nicotine dependence
CPT/HCPCS: 99283; A4216

== ENCOUNTER → 2023-06-13 | Outpatient (CLI) | payer MEDICARE, BC, SELFPAY | END | disposition home or self-care (01) | PROVIDERS: PCP Family Medicine; Referring Provider Nurse Practitioner Family; Visit Provider Nurse Practitioner Family | DX: R31.9 Hematuria, unspecified (principal) | CPT/HCPCS: 87077; 87086; 87088; 87186 ==

== ENCOUNTER 2023-06-26 11:13 | Emergency (ER) | payer MEDICARE, BC, SELFPAY ==
[2023-06-26 11:14] VITALS: BP 116/99; PULSE 95; RESP 22; TEMP 36.2; O2SAT 95; BMI 43.7
--- NOTE | 2023-06-26 11:48 | CM.ED ---
Social Work SW performed chart review, patient has LW on file as of 2017 and HCPOA documents on file as of 2018. Patient's identified HCPOA is Marcelo Baker and alternate is patient's daughter Umm Carver Leonor YOOW, MARIA ESTHER
--- NOTE | 2023-06-26 11:50 | RAD_ITS ---
EXAM: XR CHEST, 1 VIEW CLINICAL INDICATION: CAD TECHNIQUE: Frontal view of the chest. COMPARISON: XR Chest dated 01/13/2020 FINDINGS: LUNGS AND PLEURAL SPACES: Persistent linear density within the left lung consistent with scarring. Lungs otherwise clear. No pneumothorax. No effusion. HEART: Stable borderline cardiomegaly. MEDIASTINUM: No mediastinal or hilar mass. BONES/JOINTS: No acute abnormality. RAD/Chest 1 View (Portable) IMPRESSION: No acute pulmonary abnormality. Stable borderline cardiomegaly. Electronically Signed: Robert Gibbons MD at 13:02 EDT ,
--- NOTE | 2023-06-26 11:52 | EDS_ITS ---
HPI History of Present Illness Chief Complaint: Weakness Narrative Narrative: 83-year-old female past medical history of SVT, generalized weakness, hypertension, hyperlipidemia lives at home alone currently presents with generalized weakness and fatigue that she has had for the last 2 months. She states that some days it is hard for her to get out of bed and even walk to her recliner without her walker. She denies any fevers or chills, no cough, no problems with urination. No recent nausea or vomiting, no diarrhea. She states today was one of her worst days where she felt generally weak. She has not contacted her primary care provider regarding this. She did not take her me dications today because she states that she was sleeping this morning. She called EMS because she felt generally weak more so than usual. [facility] Medical History Acute kidney injury Carpal tunnel syndrome Chronic anticoagulation CKD (chronic kidney disease) COPD (chronic obstructive pulmonary disease) Essential hypertension Fall Fracture of right radius History of deep venous thrombosis History of pulmonary embolus (PE) (2008) History of ulcerative colitis Hyperkalemia Hyperlipidemia Hypotension Obesity Obstructive sleep apnea Presence of IVC filter Pulmonary fibrosis Restless leg syndrome RLS (restless legs syndrome) Secondary pulmonary arterial hypertension Thrombocytopenia Home Medications rosuvastatin 10 mg tablet 10 mg PO QHS CHOLESTEROL LOWERING 05/13/15 [History Last Taken 01/11/20] sulfasalazine 500 mg tablet 1,000 mg PO BID COLITIS 10/23/15 [History Last Taken 01/12/20] amitriptyline 100 mg tablet 100 mg PO QHS SLEEP 01/30/17 [History Last Taken 01/11/20] glucosamine HCl 500 mg-msm 83 mg-chondroitin 400 mg tablet 1 ea PO BID SUPPLEMENT 01/30/17 [History Last Taken 01/12/20] mometasone-formoterol HFA 100 mcg-5 mcg/actuation aerosol inhaler 1 puff IH BID BREATHING 01/30/17 [History Last Taken 01/12/20] nystatin 100,000 unit/gram topical powder 1 applic topical TID PRN skin irritation 10/16/17 [History Last Taken Unknown] pramipexole 1.5 mg tablet 1.5 mg PO QHS restless legs 01/12/20 [History Last Taken 01/11/20] warfarin 5 mg tablet 5 mg PO DAILY blood thinner 01/12/20 [History Last Taken 01/11/20] loratadine 10 mg tablet 10 mg PO DAILY PRN allergies 05/04/20 [History Last Taken Unknown] cholecalciferol (vitamin D3) 50 mcg (2,000 unit) tablet 2,000 unit PO BID 01/25/21 [History Last Taken Unknown] folic acid 400 mcg tablet 400 mcg PO QHS supplement 01/25/21 [History Last Taken Unknown] levothyroxine 175 mcg tablet 175 mcg PO DAILY 01/25/21 [History Last Taken Unknown] vitamins A,C,N-fnwf-cgtcrx 4,296 mcg-226 mg-90 mg capsule (Healthy Eyes SuperVision) 1 cap PO BID 01/25/21 [History Last Taken Unknown] duloxetine 60 mg capsule,delayed release 60 mg PO Q OTHER DAY 07/27/22 [History Last Taken Unknown] folic acid 800 mcg tablet 0.8 mg PO QAM 07/27/22 [History Last Taken Unknown] mirabegron 50 mg tablet,extended release 24 hr (Myrbetriq) 50 mg PO DAILY 07/27/22 [History Last Taken Unknown] triamcinolone acetonide 0.5 % topical cream 1 applic topical BID PRN 07/27/22 [History Last Taken Unknown] warfarin 1 mg tablet 1 mg PO DAILY 07/27/22 [History Last Taken Unknown] vitamin B complex (B Complex-Vitamin B12 tablet) 1 tab PO DAILY 09/08/22 [History Last Taken Unknown] calcium carbonate 500 mg-vitamin D3 10 mcg (400 unit) chewable tablet 1 tab PO BID SUPPLEMENT 01/12/23 [History Last Taken Unknown] acetaminophen 650 mg tablet,extended release 650 mg PO DAILY arthritis 04/10/23 [History Last Taken Unknown] diphenhydramine 25 mg-acetaminophen 500 mg tablet (Acetaminophen PM) 1 tab PO QHS PRN 04/10/23 [History Last Taken Unknown] hydrocodone-acetaminophen 5-325mg 5mg-325mg 0.5 tab PO DAILY 04/10/23 [History Last Taken Unknown] meloxicam 15 mg tablet 15 mg PO DAILY 04/10/23 [History Last Taken Unknown] metoprolol succinate 25 mg tablet,extended release 24 hr 50 mg PO DAILY htn 04/10/23 [History Last Taken Unknown] doxycycline monohydrate 100 mg capsule 100 mg PO BID #20 CAPSULES 06/05/23 [Rx Last Taken Unknown] Allergy/AdvReac Type Severity Reaction Status Date / Time erythromycin base Allergy Mild unknown Verified 06/26/23 11:17 aspirin [From Robaxisal] Allergy Unknown Verified 06/26/23 11:17 digoxin [From Lanoxin] Allergy Unknown Verified 06/26/23 11:17 etodolac [From Lodine] Allergy Unknown Verified 06/26/23 11:17 ibuprofen [From Motrin] Allergy Unknown Verified 06/26/23 11:17 meclizine HCl [From Antivert] Allergy Unknown Verified 06/26/23 11:17 meclofenamate sodium Allergy Unknown Verified 06/26/23 11:17 [From Meclomen] methocarbamol Allergy Unknown Verified 06/26/23 11:17 [From Robaxisal] nabumetone [From Relafen] Allergy Unknown Verified 06/26/23 11:17 naproxen Allergy Unknown Verified 06/26/23 11:17 sulfamethoxazole Allergy Unknown Verified 06/26/23 11:17 [From Bactrim] trimethoprim [From Bactrim] Allergy Unknown Verified 06/26/23 11:17 hydrocodone AdvReac Severe HALLUCINATI Verified 06/26/23 11:17 ONS Penicillins AdvReac Intermediate Diarrhea Verified 06/26/23 11:17 Family History Father Prostate cancer Brother Heart disease Mother Parkinsons disease Surgical History H/O colonoscopy H/O right heart catheterization (04/11/19) History of appendectomy History of basal cell carcinoma excision History of carpal tunnel surgery of right wrist History of cholecystectomy History of total left knee replacement (12/19/07) S/P appendectomy S/P cholecystectomy S/P Mohs surgery for basal cell carcinoma Status post total left knee replacement Social History Smoking Status: Former smoker how long ago did patient quit smokin years ago alcohol intake: never caffeine: Yes Type: coffee Number of servings: 1 ROS ROS ED ROS Narrative Constitutional: No fever, no chills. Generalized weakness. Difficulty ambulating at times. HEENT: No sore throat. No neck pain. No loss of vision. No rhinorrhea. Cardiovascular: No chest pain. No palpitations. No pedal edema. Respiratory: No cough, no shortness of breath. Abdominal: No abdominal pain. No nausea. No vomiting. Genitourinary: No dysuria. No hematuria. Musculoskeletal: No myalgias. No arthralgias. Neurologic: No headaches. No dizziness. No lightheadedness. Skin: No rash. No change in color. Psychiatric: No depression. No anxiety. EXAM Physical Exam Narrative Exam Narrative: Afebrile. Vital signs noted. HEENT: Normocephalic. Atraumatic. PERRL, EOMI. Neck soft and supple. No point tenderness or step off. Cardiovascular: Regular rate and rhythm. No murmurs, rubs, or gallops a ppreciated. Respiratory: No tachypnea. Lungs clear to auscultation bilaterally. Gastrointestinal: Abdomen soft, nontender, with normoactive bowel sounds. No rebound or guarding. Neurological: Awake. Alert. Nonfocal, nonlateralizing. Skin: No rash. Normal color. No pallor. Musculoskeletal: No pedal edema. Full range of motion extremities. Const Vital Signs: 06/26/23 11:14 06/26/23 12:25 06/26/23 12:42 Temperature 97.2 F L Temperature Source Temporal Pulse Rate 95 Respiratory Rate 22 H Respiratory Pattern Normal Blood Pressure 116/99 H 101/82 H Blood Pressure Mean 104 88 Pulse Ox 95 Oxygen Delivery Method Room Air 06/26/23 13:21 Temperature Temperature Source Pulse Rate 93 Respiratory Rate Respiratory Pattern Blood Pressure 124/50 H Blood Pressure Mean 74 Pulse Ox 94 Oxygen Delivery Method Room Air MDM MDM MDM Narrative Medical decision making narrative: I reviewed her prior visits. She has had generalized weakness and fatigue in the past. Given her age and comorbidities I do feel the generalized work-up should be performed. I have low suspicion for pneumonia as her history and phy sical does not suggest that she would have an occult pneumonia, and additionally she is not having dysuria or hematuria. Chest x-ray will be obtained along with EKG, and basic laboratory work including CBC, CMP, urinalysis, and troponin. She will be bolused normal saline 500 mL intravenously. On her medication list currently is warfarin so I will also check an INR. I do not feel that CT of the brain is indicated. I reviewed the patient's laboratory work from today and she has a normal white count of 7.6, hemoglobin 11.9, hematocrit 37.7, platelet count slightly low at 132 which I think is nonspecific. He has had number cytopenia in the past and review of her previous records as well. CMP shows chloride slightly elevated at 108 but normal sodium of 139 and potassium normal at 4.4, BUN slightly elevated 29 with creatinine of 0.9, AST and ALT are normal. Her urinalysis is positive for nitrites with 5-10 WBCs and 5-10 RBCs. She is not having dysuria or hematuria. Additionally, she was recently treated for UTI with doxycycline. She has multiple allergies. In discussion with the patient and through shared decision making, urine culture will be sent instead of restarting her on antibiotics because of multiple allergies and side effects.. Chest x-ray in 1 view was obtained and interpreted by myself independently as no evidence of pneumothorax or pneumonia. I reviewed the radiology report which confirms my independent interpretation. At this point in time, in discussion with the patient, she does not want to be admitted for placement into rehab or longterm. She will use her walker at home and follow-up with her primary care physician for her almost chronic fatigue and generalized weakness. I feel she be discharged to follow-up. Return instructions to the emergency department were reviewed. Disposition is discharged home in stable condition. History & Record Review Discussion w/independent historian: Patient Additional record(s) reviewed:: Prior ED visit and Prior labs Lab Data Attestation: I reviewed the patient's lab results. Labs: Laboratory Results - last 24 hr 06/26/23 06/26/23 12:22 12:33 WBC 7.6 RBC 3.44 L Hgb 11.9 L Hct 37.7 MCV 109.6 H MCH 34.6 H MCHC 31.6 L RDW Std Deviation 53.3 H RDW Coeff of Sina 13.1 Plt Count 132 L MPV 9.0 Immature Gran % (Auto) 0.300 Neut % (Auto) 72.1 H Lymph % (Auto) 20.1 [place] % (Auto) 5.7 Eos % (Auto) 1.3 Baso % (Auto) 0.5 Absolute Neuts (auto) 5.4 Absolute Lymphs (auto) 1.52 Nucleated RBC % 0 PT 28.5 H INR 2.6 Sodium 139 Potassium 4.4 Chloride 108 H Carbon Dioxide 26.0 Anion Gap 5 BUN 29 H Creatinine 0.91 Estim Creat Clear Calc 38.75 Est GFR (MDRD) Af Amer 76 Est GFR (MDRD) Non-Af 63 BUN/Creatinine Ratio 31.9 H Glucose 89 Calcium 8.8 Total Bilirubin 0.70 AST 37 ALT 27 Alkaline Phosphatase 68 Troponin I High Sens 11 Total Protein 6.5 Albumin 3.4 Globulin 3.1 Albumin/Globulin Ratio 1.1 Urine Color Yellow Urine Clarity Sl. Cloudy Urine pH 7.0 Ur Specific [place] 1.010 Urine Protein 15 H Urine Glucose (UA) Normal Urine Ketones Negative Urine Occult Blood 250 H Urine Nitrite Positive H Urine Bilirubin Negative Urine Urobilinogen Normal Ur Leukocyte Esterase 500 H Urine RBC 5-10 SEEN Urine WBC 5-10 SEEN Ur Squamous Epith Cells 0-5 SEEN Ur Transition Epith Cell 0-5 SEEN Urine Bacteria 1+ Urine Mucus 0 SEEN Radiography Diagnostic Testing: Clinical Impression(s) from Imaging Studies Chest X-Ray 06/26/23 11:50 IMPRESSION: No acute pulmonary abnormality. Stable borderline cardiomegaly. Electronically Signed: Robert Gibbons MD at 13:02 EDT , Discharge Plan Triage Chief Complaint: Weakness ED Provider: Deni Brown Dx/Rx/DC Orders Clinical Impression: Generalized weakness, Malaise and fatigue Instructions: ED Weakness (Uncertain Cause) Prescriptions: No Action folic acid 400 mcg tablet 400 mcg PO QHS Patient Comments: takes 400mcg at night meloxicam 15 mg tablet 15 mg PO DAILY Patient Comments: TAKE 1 TABLET BY MOUTH EVERY DAY levothyroxine 175 mcg tablet 175 mcg PO DAILY cholecalciferol (vitamin D3) 50 mcg (2,000 unit) tablet 2,000 unit PO BID Healthy Eyes SuperVision [phone] [id number]-dl-[id number] capsule 1 cap PO BID duloxetine 60 mg capsule,delayed release(DR/EC) 60 mg PO Q OTHER DAY folic acid 800 mcg tablet 0.8 mg PO QAM Myrbetriq 50 mg tablet extended release 24 hr 50 mg PO DAILY triamcinolone acetonide 0.5 % cream 1 applic topical BID PRN warfarin 1 mg tablet 1 mg PO DAILY vitamin B complex [B Complex-Vitamin B12] Tablet 1 tab PO DAILY metoprolol succinate 25 mg tablet extended release 24 hr 50 mg PO DAILY diphenhydramine-acetaminophen [Acetaminophen PM] 25-500 mg tablet 1 tab PO QHS PRN hydrocodone-acetaminophen 5-325 mg tablet 0.5 tab PO DAILY rosuvastatin 10 MG tablet 10 mg PO QHS Patient Comments: CHOLESTEROL sulfasalazine 500 MG tablet 1,000 mg PO BID Patient Comments: ULCERATIVE COLITIS calcium carbonate-vitamin D3 500 mg-10 mcg (400 unit) tablet,chewable 1 tab PO BID Patient Comments: CALCIUM mometasone-formoterol 8.8 GM HFA aerosol inhaler 1 puff IH BID Patient Comments: BREATHING glucosamine [id number] 1 EACH tablet 1 ea PO BID Patient Comments: SUPPLEMENT amitriptyline 100 MG tablet 100 mg PO QHS Patient Comments: SLEEP nystatin 1 APPLIC bottle 1 applic TOPICAL TID PRN (Reason: skin irritation) Rx Instructions: to affected areas loratadine 10 mg tablet 10 mg PO DAILY PRN (Reason: allergies) acetaminophen 650 mg tablet extended release 650 mg PO DAILY warfarin 5 MG tablet 5 mg PO DAILY pramipexole 1.5 MG tablet 1.5 mg PO QHS doxycycline monohydrate 100 mg capsule 100 mg PO BID Qty: 20 0RF Primary Care Provider: Jovani Mcconnell Referrals: Jovani Mcconnell MD [Primary Care Provider] - 3-5 Days if not improving Disposition Disposition: Home, Self Care
[2023-06-26 12:31] LABS: Absolute Lymphocyte Count 1.52 X10^3/uL (0.83-4.51); Absolute Neutrophil Count 5.4 X10^3/uL (2.0-7.7); Basophil# 0.04 X10^3/uL; Basophil% 0.5 % (0-1); Eosinophils% 1.3 % (0-5); Hematocrit 37.7 % (37-47); Hemoglobin 11.9 g/dL (12.0-15.0); Lymphocyte # 1.52 X10^3/ul (0.83-4.51); Lymphocyte % 20.1 % (19-41); Mean Corp Hgb Conc 31.6 g/dL (32-36); Mean Corpuscular Hgb 34.6 pg (27.0-32.0); Mean Corpuscular Volume 109.6 fL (81-99); Monocyte# 0.43 X10^3/uL; Monocyte% 5.7 % (0-10); NRBC Flagged by Analyzer 0 % (0-5); Neutrophil # 5.44 X10^3/uL (2.7-7.7); Neutrophil % 72.1 % (47-70); Platelet Count 132 K/mm3 (150-450); RBC Distribution Width CV 13.1 % (11.6-14.6); RBC Distribution Width SD 53.3 fl (35.1-43.9); Red Blood Count 3.44 M/mm3 (4.2-5.4); White Blood Count 7.6 K/mm3 (4.4-11.0)
[2023-06-26 12:42] VITALS: BP 101/82
[2023-06-26 12:43] LABS: Mucous, Urine 0 SEEN /hpf (<or=2+)
[2023-06-26 12:43] LABS: International Normalized Ratio 2.6; Prothrombin Time (Protime)PT. 28.5 SECONDS (11.7-14.9)
[2023-06-26 12:52] LABS: Color, Urine Yellow (Yellow); Glucose, Dipstick Normal (Normal); Ketone-Dipstick Negative (Negative); Leukocyte Esterase-Dipstick 500 /ul (Negative); Nitrite-Dipstick Positive (Negative); Occult Blood-Urine 250 /ul (Negative); Protein-Dipstick 15 mg/dl (Negative); Urine Bilirubin Dipstick Negative (Negative); Urine Clarity Sl. Cloudy (Clear); Urine Urobilinogen Normal (Normal)
[2023-06-26 12:55] LABS: ALB/GLOB Ratio 1.1 RATIO (0.9-2.4); AST(SGOT) 37 U/L (15-37); Alanine Aminotransfer ALT/SGPT 27 U/L (13-56); Albumin, Serum 3.4 g/dL (3.2-5.0); Alkaline Phosphatase 68 U/L (45-117); Anion Gap 5 (5-15); BUN 29 mg/dL (7-18); BUN/Creat Ratio 31.9 RATIO (10-20); Calcium,Total 8.8 mg/dL (8.5-10.1); Chloride 108 mmol/L (98-107); Creatinine, Serum 0.91 mg/dL (0.55-1.02); EST Glomerular Filtration Rate 63 mL/min (>60); Est Glom Filt Rate - Afr Amer 76 mL/min (>60); Estimated Creatinine Clearance 38.75 ml/min; Globulin 3.1 g/dL (2.2-4.2); Glucose 89 mg/dL (74-106); Potassium 4.4 mmol/L (3.5-5.1); Protein, Total 6.5 g/dL (6.4-8.2); Sodium Level 139 mmol/L (136-145); Troponin-I HS 11 pg/mL (3.0-54.0)
[2023-06-26 13:03] LABS: Bacteria 1+ /hpf (None Seen); Red Blood Cells-Urine 5-10 SEEN /hpf (0-5); Squamous Epithelial Cells - UA 0-5 SEEN /hpf (5-10); Transitional Epithelial - Ur 0-5 SEEN /hpf (0-5); White Blood Cells 5-10 SEEN /hpf (0-5)
[2023-06-26 13:21] VITALS: BP 124/50; PULSE 93; O2SAT 94
[2023-06-26 13:37] VITALS: PULSE 90; RESP 18
== END 2023-06-26 13:56 | disposition home or self-care (01) ==
PROVIDERS: Emergency Provider Emergency Medicine; PCP Family Medicine; Visit Provider Emergency Medicine
DX: R53.1 Weakness (principal); J44.9 Chronic obstructive pulmonary disease, unspecified; I27.21 Secondary pulmonary arterial hypertension; I12.9 Hypertensive chronic kidney disease with stage 1 through stage 4 chronic kidney disease, or unspecified chronic kidney disease; N18.9 Chronic kidney disease, unspecified; E78.5 Hyperlipidemia, unspecified; G47.33 Obstructive sleep apnea (adult) (pediatric); E66.9 Obesity, unspecified; Z79.01 Long term (current) use of anticoagulants; Z79.899 Other long term (current) drug therapy; Z87.891 Personal history of nicotine dependence
CPT/HCPCS: 71045; 80053; 81001; 84484; 85025; 85610; 87077; 87086; 87088; 87186; 93005; 96360; 99285; J7040; A4216

== ENCOUNTER → 2023-07-23 | Outpatient (CLI) | payer MEDICARE, BC, SELFPAY ==
[2023-07-23 16:00] LABS: Anion Gap 7 (5-15); BUN 27 mg/dL (7-18); BUN/Creat Ratio 26.5 RATIO (10-20); Calcium,Total 8.9 mg/dL (8.5-10.1); Chloride 107 mmol/L (98-107); Creatinine, Serum 1.02 mg/dL (0.55-1.02); EST Glomerular Filtration Rate 55 mL/min (>60); Est Glom Filt Rate - Afr Amer 67 mL/min (>60); Glucose 93 mg/dL (74-106); Potassium 4.3 mmol/L (3.5-5.1); Sodium Level 139 mmol/L (136-145)
== END | disposition home or self-care (01) ==
LOC: MFPLAB 12:14
PROVIDERS: PCP Family Medicine; Visit Provider Internal Medicine Pulmonary Disease
DX: R06.02 Shortness of breath (principal); I27.20 Pulmonary hypertension, unspecified; R09.02 Hypoxemia
CPT/HCPCS: 36415; 80048

== ENCOUNTER 2023-07-29 13:59 | Inpatient (IN) | payer MEDICARE, BC, SELFPAY ==
[2023-07-29] VITALS (9 sets, daily range): BP systolic 115–153; BP diastolic 60–100; PULSE 83–99; RESP 12–19; TEMP 36.6–36.9; O2SAT 91–96; BMI 50.5
--- NOTE | 2023-07-29 14:35 | RAD_ITS ---
STUDY: XR Chest 1 View 07/29/2023 3:01 PM REASON FOR EXAM: Female, 83 years old. cough COMPARISON: 06/26/2023 TECHNIQUE: XR Chest 1 View FINDINGS: There is no demonstrated pleural abnormality. Enlarged heart size. Normal mediastinum. Normal antwon. Prominent appearing increased interstitial lung markings. Normal visualized pulmonary arteries. There is atherosclerotic calcification of the aortic arch with tortuosity. There are diffuse degenerative changes of the visualized thoracic spine. There is degenerative osteoarthritis of the bilateral shoulders. There are no acute findings of the upper abdomen. RAD/Chest 1 View (Portable) IMPRESSION: There are no acute findings. Electronically Signed: Geraldo Denney MD at 15:32 EDT ,
--- NOTE | 2023-07-29 14:36 | EDS_ITS ---
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 Patient called her daughter, patient got up today, went to her lift chair in her living room, could not get out. Per the family, they got her and can get her to stand up however she cannot walk. She does have a room at [facility] which is assisted living however she has not moved in yet. Patient states that she is weak and cannot walk and take care of herself at home. PFSH <VALENTINO Norman - Last Filed: 07/29/23 16:15> [facility] Medical History (Updated 07/29/23 @ 16:[address] Raine Pickard MD) Carpal tunnel syndrome Chronic anticoagulation CKD (chronic kidney disease) COPD (chronic obstructive pulmonary disease) Essential hypertension Fracture of right radius History of deep venous thrombosis History of pulmonary embolus (PE) (2008) History of ulcerative colitis Hyperkalemia Hyperlipidemia Hypotension Morbid obesity Obstructive sleep apnea Presence of IVC filter Pulmonary fibrosis Restless leg syndrome RLS (restless legs syndrome) Secondary pulmonary arterial hypertension Thrombocytopenia Home Medications rosuvastatin 10 mg tablet 10 mg PO QHS CHOLESTEROL LOWERING 05/13/15 [History Last Taken 01/11/20] sulfasalazine 500 mg tablet 1,000 mg PO BID COLITIS 10/23/15 [History Last Taken 01/12/20] amitriptyline 100 mg tablet 100 mg PO QHS SLEEP 01/30/17 [History Last Taken 01/11/20] glucosamine HCl 500 mg-msm 83 mg-chondroitin 400 mg tablet 1 ea PO BID SUPPLEMENT 01/30/17 [History Last Taken 01/12/20] mometasone-formoterol HFA 100 mcg-5 mcg/actuation aerosol inhaler 1 puff IH BID BREATHING 01/30/17 [History Last Taken 01/12/20] nystatin 100,000 unit/gram topical powder 1 applic topical TID PRN skin irritation 10/16/17 [History Last Taken Unknown] pramipexole 1.5 mg tablet 1.5 mg PO QHS restless legs 01/12/20 [History Last Taken 01/11/20] warfarin 5 mg tablet 5 mg PO DAILY blood thinner 01/12/20 [History Last Taken 01/11/20] loratadine 10 mg tablet 10 mg PO DAILY PRN allergies 05/04/20 [History Last Taken Unknown] cholecalciferol (vitamin D3) 50 mcg (2,000 unit) tablet 2,000 unit PO BID 01/25/21 [History Last Taken Unknown] folic acid 400 mcg tablet 400 mcg PO QHS supplement 01/25/21 [History Last Taken Unknown] levothyroxine 175 mcg tablet 175 mcg PO DAILY 01/25/21 [History Last Taken Unknown] vitamins A,C,F-qzei-dbewvx 4,296 mcg-226 mg-90 mg capsule (Healthy Eyes SuperVision) 1 cap PO BID 01/25/21 [History Last Taken Unknown] duloxetine 60 mg capsule,delayed release 60 mg PO Q OTHER DAY 07/27/22 [History Last Taken Unknown] folic acid 800 mcg tablet 0.8 mg PO QAM 07/27/22 [History Last Taken Unknown] mirabegron 50 mg tablet,extended release 24 hr (Myrbetriq) 50 mg PO DAILY 07/27/22 [History Last Taken Unknown] triamcinolone acetonide 0.5 % topical cream 1 applic topical BID PRN 07/27/22 [History Last Taken Unknown] warfarin 1 mg tablet 1 mg PO DAILY 07/27/22 [History Last Taken Unknown] vitamin B complex (B Complex-Vitamin B12 tablet) 1 tab PO DAILY 09/08/22 [History Last Taken Unknown] calcium carbonate 500 mg-vitamin D3 10 mcg (400 unit) chewable tablet 1 tab PO BID SUPPLEMENT 01/12/23 [History Last Taken Unknown] acetaminophen 650 mg tablet,extended release 650 mg PO DAILY arthritis 04/10/23 [History Last Taken Unknown] diphenhydramine 25 mg-acetaminophen 500 mg tablet (Acetaminophen PM) 1 tab PO QHS PRN 04/10/23 [History Last Taken Unknown] hydrocodone-acetaminophen 5-325mg 5mg-325mg 0.5 tab PO DAILY 04/10/23 [History Last Taken Unknown] meloxicam 15 mg tablet 15 mg PO DAILY 04/10/23 [History Last Taken Unknown] metoprolol succinate 25 mg tablet,extended release 24 hr 50 mg PO DAILY htn 04/10/23 [History Last Taken Unknown] doxycycline monohydrate 100 mg capsule 100 mg PO BID #20 CAPSULES 06/05/23 [Rx Last Taken Unknown] Allergy/AdvReac Type Severity Reaction Status Date / Time erythromycin base Allergy Mild unknown Verified 07/29/23 14:00 aspirin [From Robaxisal] Allergy Unknown Verified 07/29/23 14:00 digoxin [From Lanoxin] Allergy Unknown Verified 07/29/23 14:00 etodolac [From Lodine] Allergy Unknown Verified 07/29/23 14:00 ibuprofen [From Motrin] Allergy Unknown Verified 07/29/23 14:00 meclizine HCl [From Antivert] Allergy Unknown Verified 07/29/23 14:00 meclofenamate sodium Allergy Unknown Verified 07/29/23 14:00 [From Meclomen] methocarbamol Allergy Unknown Verified 07/29/23 14:00 [From Robaxisal] nabumetone [From Relafen] Allergy Unknown Verified 07/29/23 14:00 naproxen Allergy Unknown Verified 07/29/23 14:00 sulfamethoxazole Allergy Unknown Verified 07/29/23 14:00 [From Bactrim] trimethoprim [From Bactrim] Allergy Unknown Verified 07/29/23 14:00 hydrocodone AdvReac Severe HALLUCINATI Verified 07/29/23 14:00 ONS Penicillins AdvReac Intermediate Diarrhea Verified 07/29/23 14:00 Family History Father Prostate cancer Brother Heart disease Mother Parkinsons disease Surgical History H/O colonoscopy H/O right heart catheterization (04/11/19) History of appendectomy History of basal cell carcinoma excision History of carpal tunnel surgery of right wrist History of cholecystectomy History of total left knee replacement (12/19/07) S/P appendectomy S/P cholecystectomy S/P Mohs surgery for basal cell carcinoma Status post total left knee replacement Social History (Updated 07/29/23 @ 16:[address] Raine Pickard MD) household members: none Smoking Status: Former smoker how long ago did patient quit smokin years ago alcohol intake: never substance use type: does not use caffeine: Yes Type: coffee Number of servings: 1 ROS <VALENTINO Norman - Last Filed: 07/29/23 16:15> ROS ED ROS Narrative Constitutional: Negative for fever, chills, weight loss. Positive generalized weakness Eyes: Negative for vision loss, vision change, double vision ENT: Negative for any sore throat, ear pain, congestion Cardiovascular: Negative for any chest pain, tightness, palpitations Respiratory: Negative for any cough, sputum production, hemoptysis, dyspnea, dyspnea on exertion, orthopnea Gastrointestinal: Negative for any abdominal pain, nausea, vomiting, diarrhea, constipation, blood in stool, blood in vomit : Negative for any urinary frequency, dysuria, retention, blood in urine. Positive for hesitancy, feeling like she cannot go Muscle skeletal: Negative for any muscle joint pain, stiffness, myalgias, arthralgias, neck pain, back pain. Positive for feeling of generalized weakness to lower extremities. Neurological: Negative for any headache, syncope, numbness or tingling, dizziness Skin: Negative for any rashes, lumps, itching, abrasions, lacerations Psychiatric: Negative for any depression, anxiety, stress, suicidal ideation, homicidal ideation Hematologic: Negative for any easy bruising, excessive bruising, easy bleeding Allergies: Negative for any eczema, hives, rash EXAM <VALENTINO Norman - Last Filed: 07/29/23 16:15> Physical Exam Narrative Exam Narrative: Vital signs reviewed. Patient is alert and orient x4. Patient states today, she just could not walk. HEET: Head normocephalic atraumatic, TMs clear bilaterally. Posterior pharynx is clear, moist mucous membranes. Nares clear bilaterally. Neck: Supple with no lymphadenopathy or tenderness. No signs of meningismus, negative jolt sign. Cardiac: Regular rate and rhythm no murmurs gallops or rubs, equal peripheral pulses bilaterally. Respiratory: Lungs clear to auscultation bilaterally. No chest tenderness. Abdomen: Soft, nontender, nondistended. No abdominal bruit or pulsatile masses. No hepatosplenomegaly Extremities: No peripheral edema, no signs of gross trauma or deformity. Active full range of motion of all extremities. Neuro: Cranial nerves II through XII intact, no focal neurological deficits. Skin: Clean dry and intact with no rash, purpura, petechiae, vesicles or pustules. Backs/flank: No CVA tenderness, no midline spinal tenderness, no deformity. Psych: Normal mood and affect. No SI, HI or acute psychosis. Const Vital Signs: 07/29/23 14:00 07/29/23 14:03 07/29/23 14:04 Temperature 98.1 F Temperature Source Oral Pulse Rate 98 Respiratory Rate 18 Respiratory Effort Normal Non-Labored Respiratory Pattern Normal Blood Pressure 115/60 Blood Pressure Mean 78 Pulse Ox 91 Oxygen Delivery Method Room Air 07/29/23 15:36 Temperature Temperature Source Pulse Rate 95 Respiratory Rate 18 Respiratory Effort Respiratory Pattern Blood Pressure 153/81 H Blood Pressure Mean 105 Pulse Ox 91 Oxygen Delivery Method Room Air <Dr. Bill Montoya MD - Last Filed: 07/29/23 15:15> Physical Exam Const Vital Signs: 07/29/23 14:00 07/29/23 14:03 07/29/23 14:04 Temperature 98.1 F Temperature Source Oral Pulse Rate 98 Respiratory Rate 18 Respiratory Effort Normal Non-Labored Respiratory Pattern Normal Blood Pressure 115/60 Blood Pressure Mean 78 Pulse Ox 91 Oxygen Delivery Method Room Air 07/29/23 15:36 Temperature Temperature Source Pulse Rate 95 Respiratory Rate 18 Respiratory Effort Respiratory Pattern Blood Pressure 153/81 H Blood Pressure Mean 105 Pulse Ox 91 Oxygen Delivery Method Room Air MDM <VALENTINO Norman - Last Filed: 07/29/23 16:15> [facility] Lab Data Labs: Laboratory Results - last 24 hr 07/29/23 07/29/23 07/29/23 14:10 14:50 14:50 WBC Cancelled Corrected WBC Cancelled RBC Cancelled Hgb Cancelled Hct Cancelled MCV Cancelled MCH Cancelled MCHC Cancelled RDW Std Deviation Cancelled RDW Coeff of Sina Cancelled Plt Count Cancelled MPV Cancelled Immature Gran % (Auto) Cancelled Neut % (Auto) Cancelled Lymph % (Auto) Cancelled Reagan % (Auto) Cancelled Eos % (Auto) Cancelled Baso % (Auto) Cancelled Absolute Neuts (auto) Cancelled Absolute Lymphs (auto) Cancelled Total Counted Cancelled Neutrophils % (Manual) Cancelled Band Neutrophils % Cancelled Lymphocytes % (Manual) Cancelled Monocytes % (Manual) Cancelled Eosinophils % (Manual) Cancelled Basophils % (Manual) Cancelled Metamyelocytes % Cancelled Myelocytes % Cancelled Promyelocytes % Cancelled Blast Cells % Cancelled Plasma Cell % (Manual) Cancelled Other Cells % Cancelled Nucleated RBC % Cancelled Nucleated RBCs/100 WBC Cancelled Differential Comment Cancelled Diff Path Review Cancelled Hypersegmented Neuts Cancelled Atypical Lymphocytes Cancelled Reactive Lymphocytes Cancelled Smudge Cells Cancelled Toxic Granulation Cancelled Toxic Vacuolation Cancelled Dohle Bodies Cancelled [place] Rods Cancelled Platelet Estimate Cancelled Plt Morphology Comment Cancelled RBC Morphology Cancelled Cancelled Polychromasia Cancelled Hypochromasia Cancelled Poikilocytosis Cancelled Basophilic Stippling Cancelled Anisocytosis Cancelled Microcytosis Cancelled Macrocytosis Cancelled Spherocytes Cancelled Sickle Cells Cancelled Target Cells Cancelled Tear Drop Cells Cancelled Ovalocytes Cancelled Stomatocytes Cancelled [place] Bodies Cancelled Umm Cells Cancelled Bite Cells Cancelled Crenated Cell Cancelled Acanthocytes (Spur) Cancelled Rouleaux Cancelled Schistocytes Cancelled PT 19.9 H INR 1.7 Sodium 137 Potassium 4.8 Chloride 107 Carbon Dioxide 22.0 Anion Gap 8 BUN 24 H Creatinine 0.81 Estim Creat Clear Calc 37.80 Est GFR (MDRD) Af Amer 86 Est GFR (MDRD) Non-Af 71 BUN/Creatinine Ratio 29.5 H Glucose 92 Calcium 9.0 Urine Color Yellow Urine Clarity Sl. Cloudy Urine pH 6.0 Ur Specific Arabi 1.020 Urine Protein 15 H Urine Glucose (UA) Normal Urine Ketones Negative Urine Occult Blood 150 H Urine Nitrite Negative Urine Bilirubin Negative Urine Urobilinogen Normal Ur Leukocyte Esterase 100 H Urine RBC 10-25 SEEN Urine WBC 10-25 SEEN Ur Squamous Epith Cells 0-5 SEEN Urine Bacteria 2+ Urine Mucus 0 SEEN Radiography Diagnostic Testing: Clinical Impression(s) from Imaging Studies Chest X-Ray 07/29/23 14:35 IMPRESSION: There are no acute findings. Electronically Signed: Geraldo Denney MD at 15:32 EDT , Treatment and Re-Evaluation :: Patient is in no distress, patient's vital signs are stable. Patient presents to the emergency department with complaints of generalized weakness, inability to walk today. Patient does have a room at [facility] however is not moved in. Patient denies any specific chest pain, shortness of breath. Patient denies any recent fever or chills. Patient will receive basic laboratory values, urinalysis looking for any infection, electrolyte abnormality. Chest x-ray, COVID-19 to rule out any viral or pneumonia. EKG is to ensure there is no arrhythmia. Patient's chest x-ray showed chronic changes no acute process. No pneumonia. Secondary to the hesitancy, patient need to have an Kim catheter placed. Patient's urinalysis was positive for infection, 2+ bacteria 10-25 white blood cells 10-25 red blood cells plus leukocyte Estrace. This to be sent for culture, IV Rocephin ordered. Laboratory values showed that the patient was hypocoagulable did with a PT of 19.9, INR 1.7. Chemistries were unremarkable. Currently waiting for a CBC. Patient's COVID-19, influenza was unremarkable. At this time, patient was attempted to ambulate, she could not. Patient will need to be admitted to hospital for weakness secondary to UTI. Patient will be accepted to the hospitalist. Patient stable for admission <Dr. Bill Montoya MD - Last Filed: 07/29/23 15:15> MDM MDM Narrative Medical decision making narrative: I have personally performed a face to face assessment of the patient and have reviewed the DANUTA Note. I performed a substantive portion of the visit including all aspects of the following. My bauer findings include: History is [83-year-old female who is planning on moving to assisted living. Does not set up completely yet. She has been generally weak. Today at home she sat down and was able to get up because her legs were too weak. She denies vomiting or diarrhea. She denies dysuria. Just that she feels weak.] Exam is [83-year-old female no acute distress vital signs stable afebrile. HEENT exam unremarkable. Lungs clear. Heart regular rhythm. Abdomen soft nontender. Moves all 4 extremities. Normal motor strength lying down. She is awake and alert. Answering questions and following commands.] Medical Decision Making [urine is consistent urinary tract infection. Urine culture sent. Started on IV Rocephin. Awaiting other labs.] Other additions or changes: [None] Lab Data Labs: Laboratory Results - last 24 hr 09/24/23 09/24/23 09/24/23 14:10 14:50 14:50 WBC Cancelled Corrected WBC Cancelled RBC Cancelled Hgb Cancelled Hct Cancelled MCV Cancelled MCH Cancelled MCHC Cancelled RDW Std Deviation Cancelled RDW Coeff of Sina Cancelled Plt Count Cancelled MPV Cancelled Immature Gran % (Auto) Cancelled Neut % (Auto) Cancelled Lymph % (Auto) Cancelled Reagan % (Auto) Cancelled Eos % (Auto) Cancelled Baso % (Auto) Cancelled Absolute Neuts (auto) Cancelled Absolute Lymphs (auto) Cancelled Total Counted Cancelled Neutrophils % (Manual) Cancelled Band Neutrophils % Cancelled Lymphocytes % (Manual) Cancelled Monocytes % (Manual) Cancelled Eosinophils % (Manual) Cancelled Basophils % (Manual) Cancelled Metamyelocytes % Cancelled Myelocytes % Cancelled Promyelocytes % Cancelled Blast Cells % Cancelled Plasma Cell % (Manual) Cancelled Other Cells % Cancelled Nucleated RBC % Cancelled Nucleated RBCs/100 WBC Cancelled Differential Comment Cancelled Diff Path Review Cancelled Hypersegmented Neuts Cancelled Atypical Lymphocytes Cancelled Reactive Lymphocytes Cancelled Smudge Cells Cancelled Toxic Granulation Cancelled Toxic Vacuolation Cancelled Dohle Bodies Cancelled [place] Rods Cancelled Platelet Estimate Cancelled Plt Morphology Comment Cancelled RBC Morphology Cancelled Cancelled Polychromasia Cancelled Hypochromasia Cancelled Poikilocytosis Cancelled Basophilic Stippling Cancelled Anisocytosis Cancelled Microcytosis Cancelled Macrocytosis Cancelled Spherocytes Cancelled Sickle Cells Cancelled Target Cells Cancelled Tear Drop Cells Cancelled Ovalocytes Cancelled Stomatocytes Cancelled [place] Bodies Cancelled [place] Cells Cancelled Bite Cells Cancelled Crenated Cell Cancelled Acanthocytes (Spur) Cancelled Rouleaux Cancelled Schistocytes Cancelled PT 19.9 H INR 1.7 Sodium 137 Potassium 4.8 Chloride 107 Carbon Dioxide 22.0 Anion Gap 8 BUN 24 H Creatinine 0.81 Estim Creat Clear Calc 37.80 Est GFR (MDRD) Af Amer 86 Est GFR (MDRD) Non-Af 71 BUN/Creatinine Ratio 29.5 H Glucose 92 Calcium 9.0 Urine Color Yellow Urine Clarity Sl. Cloudy Urine pH 6.0 Ur Specific Arabi 1.020 Urine Protein 15 H Urine Glucose (UA) Normal Urine Ketones Negative Urine Occult Blood 150 H Urine Nitrite Negative Urine Bilirubin Negative Urine Urobilinogen Normal Ur Leukocyte Esterase 100 H Urine RBC 10-25 SEEN Urine WBC 10-25 SEEN Ur Squamous Epith Cells 0-5 SEEN Urine Bacteria 2+ Urine Mucus 0 SEEN Radiography Diagnostic Testing: Clinical Impression(s) from Imaging Studies Chest X-Ray 07/29/23 14:35 IMPRESSION: There are no acute findings. Electronically Signed: Geraldo Denney MD at 15:32 EDT Reading Location ID and State: [facility] / [place] , Service support , Discharge Plan Triage Chief Complaint: Weakness ED Midlevel Provider: Jovani Fernandez ED Provider: Bill Montoya Dx/Rx/DC Orders Clinical Impression: UTI (urinary tract infection), Weakness Prescriptions: No Action folic acid 400 mcg tablet 400 mcg PO QHS Patient Comments: takes 400mcg at night meloxicam 15 mg tablet 15 mg PO DAILY Patient Comments: TAKE 1 TABLET BY MOUTH EVERY DAY levothyroxine 175 mcg tablet 175 mcg PO DAILY cholecalciferol (vitamin D3) 50 mcg (2,000 unit) tablet 2,000 unit PO BID Healthy Eyes SuperVision 14,810-945-200 [id number] capsule 1 cap PO BID duloxetine 60 mg capsule,delayed release(DR/EC) 60 mg PO Q OTHER DAY folic acid 800 mcg tablet 0.8 mg PO QAM Myrbetriq 50 mg tablet extended release 24 hr 50 mg PO DAILY triamcinolone acetonide 0.5 % cream 1 applic topical BID PRN warfarin 1 mg tablet 1 mg PO DAILY vitamin B complex [B Complex-Vitamin B12] Tablet 1 tab PO DAILY metoprolol succinate 25 mg tablet extended release 24 hr 50 mg PO DAILY diphenhydramine-acetaminophen [Acetaminophen PM] 25-500 mg tablet 1 tab PO QHS PRN hydrocodone-acetaminophen 5-325 mg tablet 0.5 tab PO DAILY rosuvastatin 10 MG tablet 10 mg PO QHS Patient Comments: CHOLESTEROL sulfasalazine 500 MG tablet 1,000 mg PO BID Patient Comments: ULCERATIVE COLITIS calcium carbonate-vitamin D3 500 mg-10 mcg (400 unit) tablet,chewable 1 tab PO BID Patient Comments: CALCIUM mometasone-formoterol 8.8 GM HFA aerosol inhaler 1 puff IH BID Patient Comments: BREATHING glucosamine [id number] 1 EACH tablet 1 ea PO BID Patient Comments: SUPPLEMENT amitriptyline 100 MG tablet 100 mg PO QHS Patient Comments: SLEEP nystatin 1 APPLIC bottle 1 applic TOPICAL TID PRN (Reason: skin irritation) Rx Instructions: to affected areas loratadine 10 mg tablet 10 mg PO DAILY PRN (Reason: allergies) acetaminophen 650 mg tablet extended release 650 mg PO DAILY warfarin 5 MG tablet 5 mg PO DAILY pramipexole 1.5 MG tablet 1.5 mg PO QHS doxycycline monohydrate 100 mg capsule 100 mg PO BID Qty: 20 0RF Primary Care Provider: Jovani Mcconnell Referrals: Jovani Mcconnell MD [Primary Care Provider] - Disposition Disposition: Acute Care Hospital [facility]
[2023-07-29 14:45] LABS: Mucous, Urine 0 SEEN /hpf (<or=2+)
[2023-07-29 14:53] LABS: Color, Urine Yellow (Yellow); Glucose, Dipstick Normal (Normal); Ketone-Dipstick Negative (Negative); Leukocyte Esterase-Dipstick 100 /ul (Negative); Nitrite-Dipstick Negative (Negative); Occult Blood-Urine 150 /ul (Negative); Protein-Dipstick 15 mg/dl (Negative); Urine Bilirubin Dipstick Negative (Negative); Urine Clarity Sl. Cloudy (Clear); Urine Urobilinogen Normal (Normal)
[2023-07-29 15:00] LABS: Bacteria 2+ /hpf (None Seen); Red Blood Cells-Urine 10-25 SEEN /hpf (0-5); Squamous Epithelial Cells - UA 0-5 SEEN /hpf (5-10); White Blood Cells 10-25 SEEN /hpf (0-5)
[2023-07-29 15:31] LABS: Anion Gap 8 (5-15); BUN 24 mg/dL (7-18); BUN/Creat Ratio 29.5 RATIO (10-20); Chloride 107 mmol/L (98-107); Creatinine, Serum 0.81 mg/dL (0.55-1.02); EST Glomerular Filtration Rate 71 mL/min (>60); Est Glom Filt Rate - Afr Amer 86 mL/min (>60); Glucose 92 mg/dL (74-106); Potassium 4.8 mmol/L (3.5-5.1); Sodium Level 137 mmol/L (136-145)
[2023-07-29] MEDS: Ceftriaxone 1 GM/50 ML BAG IV (15:35)
[2023-07-29 15:45] LABS: International Normalized Ratio 1.7; Prothrombin Time (Protime)PT. 19.9 SECONDS (11.7-14.9)
--- NOTE | 2023-07-29 15:46 | NURSING ---
PER LAB, NEED A NEW PURPLE TOP, CLOTTED
--- NOTE | 2023-07-29 16:08 | ED.RN ---
called [employer] to ask to do med list.
--- NOTE | 2023-07-29 16:13 | PCM.HP.STD ---
HPI - General General Date of Admission: 07/29/23 Date of Service: 07/29/23 Chief Complaint: Increased fatigue, weakness, urinary hesitancy. 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 Does report urinary hesitancy which she also had in the ED upon attempting to obtain urine sample. Per family reports she [facility] but has not moved in yet and the room is not ready for her. Work-up in the ED included T98.1, heart rate 98, BP 115/60, respiratory rate 18, 81% on room air, CBC pending upon requested evaluation of patient, BMP with BUN/creatinine 24/0.81 otherwise not marked appearing, coags with PT 19.9, INR 1.7 urinalysis with specific gravity 1.020, cloudy, occult blood 150, negative nitrite, leukocyte Estrace 100 with urine RBCs 10-25 and urine WBCs 10-25 with 2+ urine bacteria, urine culture pending per ED, negative SARS COVID and influenza rapid antigen, chest x-ray with no acute cardiopulmonary findings. Prior evaluation included 06/26/23 ED evaluation for weakness with UCx from that presentation with Klebsiella sensitive to several agents including cephalosporins, quinolones, Bactrim. FOR[facility]LY [facility], [facility] Medical History (Updated 07/29/23 @ 16:[address] Raine Pickard MD) Carpal tunnel syndrome Chronic anticoagulation CKD (chronic kidney disease) COPD (chronic obstructive pulmonary disease) Essential hypertension Fracture of right radius History of deep venous thrombosis History of pulmonary embolus (PE) (2008) History of ulcerative colitis Hyperlipidemia Hypotension Morbid obesity CHAI treated with BiPAP Presence of IVC filter Pulmonary fibrosis Restless leg syndrome RLS (restless legs syndrome) Secondary pulmonary arterial hypertension Thrombocytopenia Home Medications rosuvastatin 10 mg tablet 10 mg PO QHS CHOLESTEROL LOWERING 05/13/15 [History Last Taken 07/28/23] sulfasalazine 500 mg tablet 1,000 mg PO BID COLITIS 10/23/15 [History Last Taken 07/28/23] amitriptyline 100 mg tablet 100 mg PO QHS SLEEP 01/30/17 [History Last Taken 07/28/23] glucosamine HCl 500 mg-msm 83 mg-chondroitin 400 mg tablet 1 ea PO BID SUPPLEMENT 01/30/17 [History Last Taken 07/28/23] mometasone-formoterol HFA 100 mcg-5 mcg/actuation aerosol inhaler 1 puff IH BID BREATHING 01/30/17 [History Last Taken 07/28/23] nystatin 100,000 unit/gram topical powder 1 applic topical TID PRN skin irritation 10/16/17 [History Last Taken Unknown] pramipexole 1.5 mg tablet 1.5 mg PO QHS restless legs 01/12/20 [History Last Taken 07/28/23] warfarin 5 mg tablet 5 mg PO QHS blood thinner 01/12/20 [History Last Taken 07/28/23] loratadine 10 mg tablet 10 mg PO DAILY PRN allergies 05/04/20 [History Last Taken 07/28/23] cholecalciferol (vitamin D3) 50 mcg (2,000 unit) tablet 2,000 unit PO BID 01/25/21 [History Last Taken 07/28/23] folic acid 400 mcg tablet 400 mcg PO QHS supplement 01/25/21 [History Last Taken 07/28/23] levothyroxine 175 mcg tablet 175 mcg PO DAILY 01/25/21 [History Last Taken 07/28/23] vitamins A,C,L-nznl-vznslb 4,296 mcg-226 mg-90 mg capsule (Healthy Eyes SuperVision) 1 cap PO BID 01/25/21 [History Last Taken 07/28/23] duloxetine 60 mg capsule,delayed release 60 mg PO Q OTHER DAY depression 07/27/22 [History Last Taken 07/28/23] folic acid 800 mcg tablet 0.8 mg PO QAM 07/27/22 [History Last Taken 07/28/23] mirabegron 50 mg tablet,extended release 24 hr (Myrbetriq) 50 mg PO DAILY 07/27/22 [History Last Taken Unknown] triamcinolone acetonide 0.5 % topical cream 1 applic topical BID PRN rash 07/27/22 [History Last Taken Unknown] warfarin 1 mg tablet 1 mg PO QHS 07/27/22 [History Last Taken 07/28/23] vitamin B complex (B Complex-Vitamin B12 tablet) 1 tab PO DAILY 09/08/22 [History Last Taken 07/28/23] calcium carbonate 500 mg-vitamin D3 10 mcg (400 unit) chewable tablet 1 tab PO BID SUPPLEMENT 01/12/23 [History Last Taken 07/28/23] diphenhydramine 25 mg-acetaminophen 500 mg tablet (Acetaminophen PM) 1 tab PO QHS PRN sleep 04/10/23 [History Last Taken 07/28/23] meloxicam 15 mg tablet 15 mg PO DAILY 04/10/23 [History Last Taken 07/28/23] metoprolol succinate 25 mg tablet,extended release 24 hr 50 mg PO DAILY htn 04/10/23 [History Last Taken 07/28/23] Allergy/AdvReac Type Severity Reaction Status Date / Time erythromycin base Allergy Mild unknown Verified 07/29/23 14:00 aspirin [From Robaxisal] Allergy Unknown Verified 07/29/23 14:00 digoxin [From Lanoxin] Allergy Unknown Verified 07/29/23 14:00 etodolac [From Lodine] Allergy Unknown Verified 07/29/23 14:00 ibuprofen [From Motrin] Allergy Unknown Verified 07/29/23 14:00 meclizine HCl [From Antivert] Allergy Unknown Verified 07/29/23 14:00 meclofenamate sodium Allergy Unknown Verified 07/29/23 14:00 [From Meclomen] methocarbamol Allergy Unknown Verified 07/29/23 14:00 [From Robaxisal] nabumetone [From Relafen] Allergy Unknown Verified 07/29/23 14:00 naproxen Allergy Unknown Verified 07/29/23 14:00 sulfamethoxazole Allergy Unknown Verified 07/29/23 14:00 [From Bactrim] trimethoprim [From Bactrim] Allergy Unknown Verified 07/29/23 14:00 hydrocodone AdvReac Severe HALLUCINATI Verified 07/29/23 14:00 ONS Penicillins AdvReac Intermediate Diarrhea Verified 07/29/23 14:00 Family History Father Prostate cancer Brother Heart disease Mother Parkinsons disease Surgical History H/O colonoscopy H/O right heart catheterization (04/11/19) History of appendectomy History of basal cell carcinoma excision History of carpal tunnel surgery of right wrist History of cholecystectomy History of total left knee replacement (12/19/07) S/P appendectomy S/P cholecystectomy S/P Mohs surgery for basal cell carcinoma Status post total left knee replacement Social History household members: none Smoking Status: Former smoker how long ago did patient quit smokin years ago alcohol intake: never substance use type: does not use caffeine: Yes Type: coffee Number of servings: 1 ROS ROS Narrative Admission Review of Systems: CONSTITUTIONAL: No weight loss, fever, chills, + weakness or fatigue. HEENT: Eyes: No visual loss, blurred vision, double vision or yellow sclerae. Ears, Nose, Throat: No hearing loss, sneezing, congestion, runny nose or sore throat. SKIN: No rash or itching, lesions, wounds. CARDIOVASCULAR: + Chronic BL LE edema. No chest pain, chest pressure or chest discomfort, palpitations, orthopnea, syncopal events. RESPIRATORY: + Chronic dyspnea with exertion. No marked cough or increased sputum, wheezing, hemoptysis. GASTROINTESTINAL: No anorexia, nausea, vomiting or diarrhea, abdominal pain, melena, BRBPR. GENITOURINARY: + urinary hesitancy, no dysuria or retention. NEUROLOGICAL: No headache, dizziness, syncope, paralysis, ataxia, numbness or tingling in the extremities, focal weakness, change in bowel or bladder control, seizure. MUSCULOSKELETAL: + muscle, back pain, joint pain or stiffness. HEMATOLOGIC: + anemia, easy bleeding or bruising. LYMPHATICS: No enlarged nodes. No history of splenectomy. PSYCHIATRIC: + history of depression or anxiety. ENDOCRINOLOGIC: No reports of sweating, cold or heat intolerance. No polyuria or polydipsia. ALLERGIES: + history of rhinitis. Vital Signs Vital Signs Vital Signs: 07/29/23 14:00 07/29/23 14:03 07/29/23 14:04 Temperature 98.1 F Temperature Source Oral Pulse Rate 98 Respiratory Rate 18 Respiratory Effort Normal Non-Labored Respiratory Pattern Normal Blood Pressure 115/60 Blood Pressure Mean 78 Pulse Ox 91 Oxygen Delivery Method Room Air 07/29/23 15:36 Temperature Temperature Source Pulse Rate 95 Respiratory Rate 18 Respiratory Effort Respiratory Pattern Blood Pressure 153/81 H Blood Pressure Mean 105 Pulse Ox 91 Oxygen Delivery Method Room Air Weight Weight: 259 lb 0.69 oz Body Mass Index (BMI) 50.5 Physical Exam Narrative Physical Examination: General: Awake, alert, oriented x 3 and cooperative, seated upright in the ED bed, mildly fatigued otherwise no acute distress. Skin: Normal color, normal turgor, no icterus, no cyanosis except for occasional staged ecchymoses as well as chronic venous stasis skin changes to bilateral lower extremities. HEENT: AT/NC, EOMI, PERRLA, mildly dry MM, no carotid bruits or JVD noted. Lungs: Distant, mildly diminished, greater bases, appropriate effort, no rales, ronchi or wheezing. Heart: Regular rate and rhythm; no gallop, rub audible. Abdomen: Soft, morbidly obese, no obvious tenderness to palpation or any rebound or guarding, mildly hyperactive BS, difficult to assess distention and HSM given habitus. Extremities: No cyanosis or clubbing, see skin, pedal to mid girard chronic edema not markedly pitting. Neurological: Patient awake, alert, oriented as noted, cognitive function intact; pupils equally reactive to light and accommodation, cranial nerves II-XII grossly normal, moving all 4 extremities, no focal deficits, strength moderately to severely global decrease secondary to acute complaints. Psychiatric: Affect appears fatigued, no acute evidence of depressive or anxiety feelings but does have underlying history. Results Lab / Micro Data 07/29/23 16:00 07/29/23 14:50 Labs: Laboratory Results - last 24 hr 07/29/23 14:10: Urine Color Yellow, Urine Clarity Sl. Cloudy, Urine pH 6.0, Ur Specific [place] 1.020, Urine Protein 15 H, Urine Glucose (UA) Normal, Urine Ketones Negative, Urine Occult Blood 150 H, Urine Nitrite Negative, Urine Bilirubin Negative, Urine Urobilinogen Normal, Ur Leukocyte Esterase 100 H, Urine RBC 10-25 SEEN, Urine WBC 10-25 SEEN, Ur Squamous Epith Cells 0-5 SEEN, Urine Bacteria 2+, Urine Mucus 0 SEEN 07/29/23 14:50: WBC Cancelled, Corrected WBC Cancelled, RBC Cancelled, Hgb Cancelled, Hct Cancelled, MCV Cancelled, MCH Cancelled, MCHC Cancelled, RDW Std Deviation Cancelled, RDW Coeff of Sina Cancelled, Plt Count Cancelled, MPV Cancelled, Immature Gran % (Auto) Cancelled, Neut % (Auto) Cancelled, Lymph % (Auto) Cancelled, [place] % (Auto) Cancelled, Eos % (Auto) Cancelled, Baso % (Auto) Cancelled, Absolute Neuts (auto) Cancelled, Absolute Lymphs (auto) Cancelled, Total Counted Cancelled, Neutrophils % (Manual) Cancelled, Band Neutrophils % Cancelled, Lymphocytes % (Manual) Cancelled, Monocytes % (Manual) Cancelled, Eosinophils % (Manual) Cancelled, Basophils % (Manual) Cancelled, Metamyelocytes % Cancelled, Myelocytes % Cancelled, Promyelocytes % Cancelled, Blast Cells % Cancelled, Plasma Cell % (Manual) Cancelled, Other Cells % Cancelled, Nucleated RBC % Cancelled, Nucleated RBCs/100 WBC Cancelled, Differential Comment Cancelled, Diff Path Review Cancelled, Hypersegmented Neuts Cancelled, Atypical Lymphocytes Cancelled, Reactive Lymphocytes Cancelled, Smudge Cells Cancelled, Toxic Granulation Cancelled, Toxic Vacuolation Cancelled, Dohle Bodies Cancelled, Anselmo Rods Cancelled, Platelet Estimate Cancelled, Plt Morphology Comment Cancelled, RBC Morphology Cancelled 07/29/23 14:50: RBC Morphology Cancelled, Polychromasia Cancelled, Hypochromasia Cancelled, Poikilocytosis Cancelled, Basophilic Stippling Cancelled, Anisocytosis Cancelled, Microcytosis Cancelled, Macrocytosis Cancelled, Spherocytes Cancelled, Sickle Cells Cancelled, Target Cells Cancelled, Tear Drop Cells Cancelled, Ovalocytes Cancelled, Stomatocytes Cancelled, [place] Bodies Cancelled, Umm Cells Cancelled, Bite Cells Cancelled, Crenated Cell Cancelled, Acanthocytes (Spur) Cancelled, Rouleaux Cancelled, Schistocytes Cancelled, PT 19.9 H, INR 1.7, Sodium 137, Potassium 4.8, Chloride 107, Carbon Dioxide 22.0, Anion Gap 8, BUN 24 H, Creatinine 0.81, Estim Creat Clear Calc 37.80, Est GFR (MDRD) Af Amer 86, Est GFR (MDRD) Non-Af 71, BUN/Creatinine Ratio 29.5 H, Glucose 92, Calcium 9.0 Micro: Microbiology 07/29/23 14:50 Nasal Secretion SARS-CoV-2 & FLU Antigen (Rapid) - Final Radiology Impression Chest X-Ray 07/29/23 14:35 IMPRESSION: There are no acute findings. 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 #1. Acute Adult FTT secondary to Acute Complicated Urinary Tract Infection: Will admit to [facility] upon ED evaluation remarkable, pending UCx, CBC is still pending upon requested evaluation of patient of note, will continue judicious IVFs, monitor I/Os, continue IV Rocephin based on most recent prior UCx as noted w/ transition as able pending sensitivities and speciation. PT/OT/CM consultations for discharge planning. Per report planned transition to [place] but awaiting room set-up. #2. Hx VTE (DT, PE) with factor V Leiden: s/p IVCF placement, will continue Coumadin with INR trending as noted, presentation INR 1.7 with additional dose Coumadin given tonight. #3. 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 #4. Ulcerative colitis: We will continue patient home sulfasalazine chronic home regimen, not on any chronic steroids of note, encourage continued outpatient follow-up with gastroenterology. #5. Chronic thrombocytopenia: Unclear exact etiology, admission platelets pending upon requested evaluation of patient, most recent prior 06/26/2023 platelets 132 however has vacillated, will continue to trend. #6. Chronic macrocytic anemia: Admission hemoglobin/MCV pending upon requested evaluation of patient, prior baseline 11-12, will continue to trend. #7. Chronic Kidney Disease Stage III, unclear subtype: Admission BUN/Cr 24/0.81, baseline renal function since 09/2022 primarily 0.9-1.0, repeat BMP in AM. #8. Anxiety and depression: We will continue nightly amitriptyline as well as home duloxetine regimen. #9. Hypothyroidism: We will continue patient home levothyroxine regimen, TSH and free T4 levels requested given weakness complaints. #10. Hypertension: Continue home regimen including metoprolol, PRN hydralazine. #11. Hyperlipidemia: We will continue patient home statin therapy. #12. Restless leg syndrome: We will continue patient home pramipexole regimen. #13. Morbid Obesity: Weight loss and lifestyle changes encouraged. #14. Former tobacco use: Encourage continued tobacco cessation. #15. CHAI: BIPAP nightly. #16. DVT prophylaxis: We will continue Coumadin with INR trending, presentation INR 1.7 with additional dose Coumadin given tonight. #17. CODE status: Patient does not have HCPOA or living will in place however she notes her decision maker would be Umm her daughter. Discussed CODE status at length including difference between FULL code, DNR-CCA and DNR-CC status. Following discussions about the differences in these status, requested at this time to remain a full code but she intends to discuss these items further with her daughter and will update staff if she would like to change this to different status. Advanced Care Planning Face to Face Time: 16 minutes. Charges/Coding Visit Charges Inpatient E&M: 05202 Init Hosp L3 Procedures Hospitalists Procedures: 79428 Advncd Care Plan 30 Min
[2023-07-29] MEDS: 0.9% Normal Saline (1000mL) 1,000 ML 100 ML IV (18:45)
[2023-07-29] MEDS: Menthol/Lanolin/Calamine/Znox 113 GM Tube 1 APPLIC TOPICAL ×2 (19:45→22:36)
[2023-07-29] MEDS: Budesonide Respules 0.5 MG/2 ML AMPUL.NEB. INHALATION (20:24)
[2023-07-29] MEDS: Amitriptyline 100 MG Tablet PO (22:28)
[2023-07-29] MEDS: Folic Acid 1 MG Tablet 0.5 MG PO (22:28)
[2023-07-29] MEDS: Pramipexole Di-HCl 0.5 MG Tablet 1.5 MG PO (22:28)
[2023-07-29] MEDS: Atorvastatin Calcium 20 MG Tablet PO (22:29)
[2023-07-29] MEDS: Miconazole Nitrate 43 GM Bottle 1 APPLIC TOPICAL (22:36)
[2023-07-29] MEDS: Acetaminophen 325 MG Tablet 650 MG PO (22:45)
[2023-07-29] MEDS: MELATONIN 3 MG TABLET PO (22:45)
[2023-07-29 23:26] LABS: Absolute Lymphocyte Count 1.87 X10^3/uL (0.83-4.51); Absolute Neutrophil Count 5.2 X10^3/uL (2.0-7.7); Basophil# 0.04 X10^3/uL; Basophil% 0.5 % (0-1); Eosinophils% 1.3 % (0-5); Hematocrit 33.5 % (37-47); Hemoglobin 10.5 g/dL (12.0-15.0); Lymphocyte # 1.87 X10^3/ul (0.83-4.51); Lymphocyte % 24.1 % (19-41); Mean Corp Hgb Conc 31.3 g/dL (32-36); Mean Corpuscular Volume 108.4 fL (81-99); Mean Platelet Vol. 8.9 fl (6.2-12.0); Monocyte# 0.58 X10^3/uL; Monocyte% 7.5 % (0-10); NRBC Flagged by Analyzer 0 % (0-5); Neutrophil # 5.15 X10^3/uL (2.7-7.7); Neutrophil % 66.2 % (47-70); Platelet Count 135 K/mm3 (150-450); RBC Distribution Width CV 13.1 % (11.6-14.6); RBC Distribution Width SD 51.9 fl (35.1-43.9); Red Blood Count 3.09 M/mm3 (4.2-5.4); White Blood Count 7.8 K/mm3 (4.4-11.0)
[2023-07-30] VITALS (10 sets, daily range): BP systolic 90–119; BP diastolic 43–98; PULSE 70–98; RESP 12–26; TEMP 36.4–36.7; O2SAT 91–99; BMI 48.6
[2023-07-30] MEDS: Levothyroxine 175 MCG Tablet PO (03:51)
[2023-07-30] MEDS: 0.9% Saline Lock 10 ML Syringe IV ×2 (03:54→10:14)
[2023-07-30] MEDS: Acetaminophen 325 MG Tablet 650 MG PO ×3 (05:41→21:48)
[2023-07-30 06:30] LABS: Absolute Lymphocyte Count 1.82 X10^3/uL (0.83-4.51); Absolute Neutrophil Count 5.4 X10^3/uL (2.0-7.7); Basophil# 0.03 X10^3/uL; Basophil% 0.4 % (0-1); Eosinophil# 0.14 X10^3/uL; Eosinophils% 1.7 % (0-5); Hematocrit 36.3 % (37-47); Hemoglobin 11.3 g/dL (12.0-15.0); Lymphocyte # 1.82 X10^3/ul (0.83-4.51); Lymphocyte % 22.7 % (19-41); Mean Corp Hgb Conc 31.1 g/dL (32-36); Mean Corpuscular Hgb 34.3 pg (27.0-32.0); Mean Corpuscular Volume 110.3 fL (81-99); Mean Platelet Vol. 9.3 fl (6.2-12.0); Monocyte# 0.58 X10^3/uL; Monocyte% 7.2 % (0-10); NRBC Flagged by Analyzer 0 % (0-5); Neutrophil # 5.41 X10^3/uL (2.7-7.7); Neutrophil % 67.6 % (47-70); Platelet Count 140 K/mm3 (150-450); RBC Distribution Width CV 13.1 % (11.6-14.6); RBC Distribution Width SD 53.1 fl (35.1-43.9); Red Blood Count 3.29 M/mm3 (4.2-5.4)
[2023-07-30 07:06] LABS: AST(SGOT) 23 U/L (15-37); Alanine Aminotransfer ALT/SGPT 29 U/L (13-56); Albumin, Serum 3.1 g/dL (3.2-5.0); Alkaline Phosphatase 68 U/L (45-117); Anion Gap 3 (5-15); BUN 23 mg/dL (7-18); BUN/Creat Ratio 27.1 RATIO (10-20); Calcium,Total 8.5 mg/dL (8.5-10.1); Chloride 109 mmol/L (98-107); Creatinine, Serum 0.85 mg/dL (0.55-1.02); EST Glomerular Filtration Rate 68 mL/min (>60); Est Glom Filt Rate - Afr Amer 82 mL/min (>60); Estimated Creatinine Clearance 36.02 ml/min; Glucose 91 mg/dL (74-106); Protein, Total 6.1 g/dL (6.4-8.2); Sodium Level 139 mmol/L (136-145); T4 Free Direct 1.02 ng/dL (0.76-1.46); Thyroid Stim Hormone (TSH) 2.74 uIU/mL (0.358-3.74)
[2023-07-30] MEDS: Budesonide Respules 0.5 MG/2 ML AMPUL.NEB. INHALATION ×2 (07:08→19:35)
--- NOTE | 2023-07-30 07:37 | PCM.PN.HOSP ---
Reason for Visit Reason for Visit: Diagnoses Urinary tract infection, site not specified (07/29/23) Subjective Subjective Patient complains of pain 10/10 in right knee but also has pain in the left knee, 4/5.10. She had left TKR done in 2004 but feels loosening up and sometimes gives out. She required 3 people assist to stand up. Physical exam General: Alert, Oriented x3, Cooperative HEENT: Atraumatic, PERRLA, EOMI, Normocephalic Oral: No Gingival or Mucosal Lesions/ Ulcerations Neck: Supple, No JVD, Negative Carotid Bruits Lungs: Air entry diminished in bilateral lung bases. No crepitation/rhonchi Cardiovascular: Regular rate, Regular Rhythm, Normal S1, Normal S2, systolic murmur. Abdomen: Bowel Sounds Present, Soft, Non Tender, Non-Distended : Denies burning micturition but has chronic mild retention. Cannot empty bladder completely. No renal angle tenderness. No suprapubic tenderness. Extremities: No edema, Capillary Refill Less than 3 Seconds Skin: No rashes, No breakdown Musculoskeletal: Bilateral knee arthritis with deformity. Right knee looks worse with loss of congruity of knee. Left knee TKR, ROM severely limited. Neurological: Cranial nerves II-XII grossly intact, DTR 2+/4. No acute focal neurological deficit. Muscle strength 4/5 at left and right knee from degenerative arthritis Psych/Mental Status: Normal Affect, Appropriate. Objective Data Objective Data Vital Signs: Vital Signs Temp Pulse Resp BP Pulse Ox O2 Del Method O2 Flow Rate 97.9 F 70 18 98/43 L 91 Nasal Cannula 2 07/30/23 04:00 07/30/23 07:08 07/30/23 07:08 07/30/23 04:00 07/30/23 07:08 07/30/23 07:08 07/30/23 07:08 FiO2 35 07/30/23 01:41 Oxygen Flow Rate (L/min) 2 Oxygen Delivery Method Nasal Cannula Weight: 248 lb 0.321 oz Body Mass Index (BMI) 48.6 Intake & Output: Intake and Output for Last 24 Hours 07/28/23 07/29/23 07/30/23 23:59 23:59 23:59 Intake Total 60 / 60 1000 / 1000 Output Total 850 / 850 Balance 60 / -340 150 / 150 Lab / Micro Data 07/30/23 05:55 07/30/23 05:55 Labs: Laboratory Results - last 24 hr 07/29/23 14:10: Urine Color Yellow, Urine Clarity Sl. Cloudy, Urine pH 6.0, Ur Specific [place] 1.020, Urine Protein 15 H, Urine Glucose (UA) Normal, Urine Ketones Negative, Urine Occult Blood 150 H, Urine Nitrite Negative, Urine Bilirubin Negative, Urine Urobilinogen Normal, Ur Leukocyte Esterase 100 H, Urine RBC 10-25 SEEN, Urine WBC 10-25 SEEN, Ur Squamous Epith Cells 0-5 SEEN, Urine Bacteria 2+, Urine Mucus 0 SEEN 07/29/23 16:11: Magnesium 2.0 07/29/23 23:10: WBC 7.8, RBC 3.09 L, Hgb 10.5 L, Hct 33.5 L, MCV 108.4 H, MCH 34.0 H, MCHC 31.3 L, RDW Std Deviation 51.9 H, RDW Coeff of Sina 13.1, Plt Count 135 L, MPV 8.9, Immature Gran % (Auto) 0.400, Neut % (Auto) 66.2, Lymph % (Auto) 24.1, [place] % (Auto) 7.5, Eos % (Auto) 1.3, Baso % (Auto) 0.5, Absolute Neuts (auto) 5.2, Absolute Lymphs (auto) 1.87, Nucleated RBC % 0 07/30/23 05:55: WBC 8.0, RBC 3.29 L, Hgb 11.3 L, Hct 36.3 L, MCV 110.3 H, MCH 34.3 H, MCHC 31.1 L, RDW Std Deviation 53.1 H, RDW Coeff of Sina 13.1, Plt Count 140 L, MPV 9.3, Immature Gran % (Auto) 0.400, Neut % (Auto) 67.6, Lymph % (Auto) 22.7, [place] % (Auto) 7.2, Eos % (Auto) 1.7, Baso % (Auto) 0.4, Absolute Neuts (auto) 5.4, Absolute Lymphs (auto) 1.82, Nucleated RBC % 0, PT 23.0 H, INR 2.0, Sodium 139, Potassium 4.0, Chloride 109 H, Carbon Dioxide 27.0, Anion Gap 3 L, BUN 23 H, Creatinine 0.85, Estim Creat Clear Calc 36.02, Est GFR (MDRD) Af Amer 82, Est GFR (MDRD) Non-Af 68, BUN/Creatinine Ratio 27.1 H, Glucose 91, Calcium 8.5, Total Bilirubin 0.60, AST 23, ALT 29, Alkaline Phosphatase 68, Total Protein 6.1 L, Albumin 3.1 L, Globulin 3.0, Albumin/Globulin Ratio 1.0, TSH 2.74, Free T4 1.02 Micro: Microbiology 07/29/23 14:50 Nasal Secretion SARS-CoV-2 & FLU Antigen (Rapid) - Final Radiography Diagnostic Testing: Radiology Impression Chest X-Ray 07/29/23 14:35 IMPRESSION: There are no acute findings. Electronically Signed: Geraldo Denney MD at 15:32 EDT Reading Location ID and State: [facility] / [place] , Service support , Assessment & Plan Assessment/Plan (1) UTI (urinary tract infection): PLAN: Plan The patient is an 83 [facility] F [facility] increased weakness, malaise, difficulty getting up from the chair and stand up/failure to thrive. #1. Acute Adult FTT secondary to Acute Complicated Urinary Tract Infection: Patient is being admitted in PCU. Patient does not have dysuria but retention found on bladder scan unclear acute or chronic as the patient is elevated. Continue IV ceftriaxone for now. Urine culture pending. PT OT and family preservation caseworker consult. Patient requires 3 people assist to even stand up. #2. Hx VTE (DT, PE) with factor V Leiden: s/p IVCF placement, will continue Coumadin with INR trending as noted, presentation INR 1.7 with additional dose Coumadin given tonight. #3. 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 #4. Chronic ulcerative colitis: continue patient home sulfasalazine chronic home regimen, not on any chronic steroids of note, encourage continued outpatient follow-up with gastroenterology. #5. Chronic thrombocytopenia: Unclear exact etiology, admission platelets pending upon requested evaluation of patient, most recent prior 06/26/2023 platelets 132 however has vacillated, will continue to trend. #6. Chronic macrocytic anemia: Admission hemoglobin/MCV pending upon requested evaluation of patient, prior baseline 11-12, will continue to trend. #7. Chronic Kidney Disease Stage III, unclear subtype: Admission BUN/Cr 24/0.81, baseline renal function since 09/2022 primarily 0.9-1.0, repeat BMP in AM. #8. Anxiety and depression: continue nightly amitriptyline as well as home duloxetine regimen. #9. Hypothyroidism: We will continue patient home levothyroxine regimen, TSH and free T4 levels requested given weakness complaints. #10. Hypertension: Continue home regimen including metoprolol, PRN hydralazine. #11. Hyperlipidemia: We will continue patient home statin therapy. #12. Restless leg syndrome: We will continue patient home pramipexole regimen. #13. Morbid Obesity: Weight loss and lifestyle changes encouraged. #14. Former tobacco use: Encourage continued tobacco cessation. #15. CAHI: BIPAP nightly. #16. DVT prophylaxis: INR is therapeutic now. #17. CODE status: Patient does not have HCPOA or living will in place however she notes her decision maker would be Umm her daughter. Discussed CODE status at length including difference between FULL code, DNR-CCA and DNR-CC status. Following discussions about the differences in these status, requested at this time to remain a full code but she intends to discuss these items further with her daughter and will update staff if she would like to change this to different status. Charges/Coding Visit Charges Inpatient E&M: 34677 Subs Hosp L2
[2023-07-30] MEDS: Folic Acid 1 MG Tablet PO (07:41)
[2023-07-30] MEDS: sulfaSALAzine 500 MG Tablet 1000 MG PO ×2 (07:41→17:59)
[2023-07-30] MEDS: Mirabegron 50 MG TAB.ER.24H PO (07:41)
[2023-07-30] MEDS: Meloxicam 15 MG Tablet PO (07:41)
[2023-07-30] MEDS: Metoprolol(XL)Succ 25 MG Tablet 50 MG PO (07:41)
[2023-07-30] MEDS: DULoxetine Hcl 60 MG Capsule PO (07:41)
[2023-07-30] MEDS: Miconazole Nitrate 43 GM Bottle 1 APPLIC TOPICAL ×2 (07:42→21:32)
[2023-07-30] MEDS: Menthol/Lanolin/Calamine/Znox 113 GM Tube 1 APPLIC TOPICAL ×3 (07:42→21:32)
[2023-07-30] MEDS: Ceftriaxone 1 GM/50 ML BAG IV (10:14)
--- NOTE | 2023-07-30 10:40 | CASEMGMT ---
Addendum entered by Netta Connors 07/30/23 13:27: MIKEY TAYLOR back into pt room, she states she was told that [facility] hold [facility] AL bed. She is interested in going there for skilled care as well but states she was told they do not have any beds. Updated SW. Original Note: MIKEY TAYLOR Face to Face with patient for initial transition planning/care coordination assessment. MIKEY TAYLOR introduced self and role at [facility]. Patient sitting up in chair in no distress with oxygen on, alert and oriented. Patient willing to participate in assessment and is able to answer all questions appropriately. Care providers, pharmacy, and demographics verified. Patient states she has a room at [facility] but she needs to move her belongings into it. She reports having someone lined up to do this but requests their phone number to check on it because she is not sure if she will need to go to the skilled side first. Provided pt with phone number to [facility]. Pt reports it took 3 people to get her up to the chair today. She is agreeable to going to SNF if recommended. Patient states she has no further needs or concerns at this time. CM to follow for discharge planning needs that may arise. PCP:Jayesh Specialists:Jamar, cardio; Renya, pulm; Rosie, uro; Karl[place], pod Preferred Pharmacy:[facility] Insurance:Michelle MOON Prescription Benefit: yes LNOK:Umm Banuelos dtr; Suad [place], sister in law Living Arrangements:Pt lives alone in a story and a half home with 3 steps to enter with a rail. Pt reports she can bathe and dress herself I but needs someone to be present for safety purposes. Pt states she prepares her own meals and does laundry. Pt granddtr gets her groceries. Pt reports she is planning on going to AL. Transportation: Pt granddtr provides transportation for pt. DME:FWW, rollator, bipap, oxygen concentrator through [facility], pox. Pt thinks she uses 5 L oxygen through pap at HHC:[facility] in the past SNF:None Disposition Plan:TBD pending AL room being held and how pt progresses with therapy
[2023-07-30] MEDS: oxyCODONE 5 MG Tablet PO (12:48)
--- NOTE | 2023-07-30 13:20 | CASEMGMT ---
Discharge Planning A list of?SNF?providers including quality and resource use data and consistent with the patient's preferred geographic region, medical needs, and insurance network was created in [employer] Guide.? This list was provided to the SW. Taisha Harris, Discharge Planning Asst.
--- NOTE | 2023-07-30 15:04 | CASEMGMT ---
Discharge Planning Referral sent to [facility] via [facility]. Discharge Planning Asst.
--- NOTE | 2023-07-30 15:09 | CASEMGMT ---
Social Work SW met with patient and introduced self and role as [facility] SW. Patient agreeable to speak to SW with family present. SW engaged patient in conversation about her discharge plan, reviewing the recommendation for SNF. SW provided a list of SNF providers including quality and resource use data and consistent with the patient?s preferred geographic region, medical needs, and insurance network were provided from the [employer] Guide. Pt preferred provider is [facility]. Patient reports she was in the process of moving into [facility] and was told there were no SNF beds available. SW reviewed referral process and explained the d/c clinic assistant could send an official referral to [facility] for a more definite answer regarding SNF. Patient agreeable. SW encouraged patient to review list for second choice in the event [facility] is unable to accept, patient voiced understanding. jerome Sumner clinic assistant updated. SW will continue to follow for d/c needs. Plan: SNF- referral pending at [facility] Wen ROSALES, MARIA ESTHER
[2023-07-30] MEDS: Pramipexole Di-HCl 0.5 MG Tablet 1.5 MG PO (21:30)
[2023-07-30] MEDS: Atorvastatin Calcium 20 MG Tablet PO (21:31)
[2023-07-30] MEDS: Amitriptyline 100 MG Tablet PO (21:31)
[2023-07-30] MEDS: Folic Acid 1 MG Tablet 0.5 MG PO (21:32)
[2023-07-30] MEDS: MELATONIN 3 MG TABLET PO (21:47)
[2023-07-31] VITALS (11 sets, daily range): BP systolic 95–124; BP diastolic 47–97; PULSE 55–98; RESP 12–28; TEMP 36.4–36.8; O2SAT 92–98; BMI 48.5
[2023-07-31] MEDS: Levothyroxine 175 MCG Tablet PO (04:53)
[2023-07-31] MEDS: Budesonide Respules 0.5 MG/2 ML AMPUL.NEB. INHALATION ×2 (07:40→20:15)
[2023-07-31] MEDS: Mirabegron 50 MG TAB.ER.24H PO (08:35)
[2023-07-31] MEDS: Menthol/Lanolin/Calamine/Znox 113 GM Tube 1 APPLIC TOPICAL ×3 (08:35→21:05)
[2023-07-31] MEDS: Meloxicam 15 MG Tablet PO (08:35)
[2023-07-31] MEDS: sulfaSALAzine 500 MG Tablet 1000 MG PO ×2 (08:35→15:47)
[2023-07-31] MEDS: Metoprolol(XL)Succ 25 MG Tablet 50 MG PO (08:35)
[2023-07-31] MEDS: Folic Acid 1 MG Tablet PO (08:35)
[2023-07-31] MEDS: Miconazole Nitrate 43 GM Bottle 1 APPLIC TOPICAL ×2 (08:36→21:05)
--- NOTE | 2023-07-31 09:13 | CASEMGMT ---
Discharge Planning [facility] currently has no open beds but believes that may change today. They are to update me this afternoon. Taisha Harris, Discharge Planning Asst.
--- NOTE | 2023-07-31 10:12 | PCM.PN.HOSP ---
Reason for Visit Reason for Visit: Diagnoses Urinary tract infection, site not specified (07/29/23) Objective Data Objective Data Vital Signs: Vital Signs Temp Pulse Resp BP Pulse Ox O2 Del Method O2 Flow Rate 97.5 F L 93 16 99/47 L 96 Nasal Cannula 3 07/31/23 08:51 07/31/23 08:51 07/31/23 08:51 07/31/23 08:51 07/31/23 08:51 07/31/23 08:52 07/31/23 08:52 FiO2 35 07/31/23 07:41 Oxygen Flow Rate (L/min) 3 Oxygen Delivery Method Nasal Cannula Weight: 247 lb 2.211 oz Body Mass Index (BMI) 48.5 Intake & Output: Intake and Output for Last 24 Hours 07/29/23 07/30/23 07/31/23 23:59 23:59 23:59 Intake Total 60 / 60 1050 / 1050 Output Total 1200 / 1200 450 / 450 Balance 60 / -340 -150 / -150 -450 / -450 Lab / Micro Data 07/30/23 05:55 07/30/23 05:55 Micro: Microbiology 07/29/23 14:10 Urine, Catheterized Urine Culture - Final Klebsiella pneumoniae sp pneum 07/29/23 14:50 Nasal Secretion SARS-CoV-2 & FLU Antigen (Rapid) - Final Physical Exam Narrative Patient is still has pain but feels better while resting. Pain is more and worse on standing. Still needs 2 people assist. She had left TKR done in 2004 but feels loosening up and sometimes gives out. BP low 90/45 but patient denies any dizziness. 500 mL bolus ordered. Physical exam General: Alert, Oriented x3, Cooperative HEENT: Atraumatic, PERRLA, EOMI, Normocephalic Oral: Oral mucosa dry. No Gingival or Mucosal Lesions/ Ulcerations Neck: Supple, No JVD, Negative Carotid Bruits Lungs: Air entry diminished in bilateral lung bases. No crepitation/rhonchi Cardiovascular: Regular rate, Regular Rhythm, Normal S1, Normal S2, systolic murmur. Abdomen: Bowel Sounds Present, Soft, Non Tender, Non-Distended : Denies burning micturition but has chronic mild retention. Cannot empty bladder completely. No renal angle tenderness. No suprapubic tenderness. Extremities: No edema, Capillary Refill Less than 3 Seconds Skin: No rashes, No breakdown Musculoskeletal: Bilateral knee arthritis with deformity. Right knee looks worse with loss of congruity of knee. Left knee TKR, ROM severely limited. Neurological: Cranial nerves II-XII grossly intact, DTR 2+/4. No acute focal neurological deficit. Muscle strength 4/5 at left and right knee from degenerative arthritis Psych/Mental Status: Normal Affect, Appropriate Assessment & Plan Assessment/Plan (1) UTI (urinary tract infection): PLAN: Plan The patient is an 83 y/o F was admitted on [facility] floor for increased weakness, malaise, difficulty getting up from the chair and stand up/failure to thrive. #1. Acute Adult FTT secondary to Acute Complicated Urinary Tract Infection: Patient is being admitted in PCU. Patient does not have dysuria but retention found on bladder scan unclear acute or chronic as the patient is elevated. Continue IV ceftriaxone for now. Urine culture pending. PT OT and pillowcase sewer consult. Patient requires 3 people assist to even stand up. 07/31: Continue PT and OT. SNF discharge. Visit person needs follow-up with [facility] in about 2 weeks. She was reluctant to have knee replacement surgery. She had left TKR done by Dr. Fish Rivero in 2004. Urine culture more than 100,000 colonies of Klebsiella pneumoniae. Sensitive to ceftriaxone therefore continued. This is urease splitting bacteria which has potential for causing phosphate stones. Low blood pressure: MAP more than 65. SBP more than 90 mmHg. Asymptomatic. 500 mL bolus ordered. She is on baseline 2 L of oxygen at night and therefore does not want fluid overload. #2. Hx VTE (DT, PE) with factor V Leiden: s/p IVCF placement, will continue Coumadin with INR trending as noted, presentation INR 1.7 with additional dose Coumadin given tonight. #3. 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 #4. Chronic ulcerative colitis: continue patient home sulfasalazine chronic home regimen, not on any chronic steroids of note, encourage continued outpatient follow-up with gastroenterology. #5. Chronic thrombocytopenia: Unclear exact etiology, admission platelets pending upon requested evaluation of patient, most recent prior 06/26/2023 platelets 132 however has vacillated, will continue to trend. #6. Chronic macrocytic anemia: Admission hemoglobin/MCV pending upon requested evaluation of patient, prior baseline -, will continue to trend. #7. Chronic Kidney Disease Stage III, unclear subtype: Admission BUN/Cr 24/0.81, baseline renal function since 09/2022 primarily 0.9-1.0, repeat BMP in AM. #8. Anxiety and depression: continue nightly amitriptyline as well as home duloxetine regimen. #9. Hypothyroidism: We will continue patient home levothyroxine regimen, TSH and free T4 levels requested given weakness complaints. #10. Hypertension: Continue home regimen including metoprolol, PRN hydralazine. #11. Hyperlipidemia: We will continue patient home statin therapy. #12. Restless leg syndrome: We will continue patient home pramipexole regimen. #13. Morbid Obesity: Weight loss and lifestyle changes encouraged. #14. Former tobacco use: Encourage continued tobacco cessation. #15. CHAI: BIPAP nightly. #16. DVT prophylaxis: INR is therapeutic now. #17. CODE status: Patient does not have HCPOA or living will in place however she notes her decision maker would be Umm her daughter. Discussed CODE status at length including difference between FULL code, DNR-CCA and DNR-CC status. Following discussions about the differences in these status, requested at this time to remain a full code but she intends to discuss these items further with her daughter and will update staff if she would like to change this to different status. Charges/Coding Visit Charges Inpatient E&M: 46646 Subs Hosp L2
[2023-07-31] MEDS: 0.9% Saline Lock 10 ML Syringe IV (10:46)
[2023-07-31] MEDS: Ceftriaxone 1 GM/50 ML BAG IV (10:46)
[2023-07-31] MEDS: 0.9% Normal Saline (500mL Bag) 500 ML 999 ML IV (11:36)
--- NOTE | 2023-07-31 12:04 | CASEMGMT ---
Discharge Planning A SNF bed will be available for patient to admit tomorrow. SW updated. Taisha Harris, Discharge Planning Asst.
--- NOTE | 2023-07-31 12:42 | CASEMGMT ---
Social Work Patient [facility]. SW informed MD Barraza via [facility]. SW met with patient and provided an update. SW reviewed Medicare 3 midnight stay for SNF coverage. Patient voiced understanding and reports no other needs. SW to continue to follow for D/C needs. Plan: [facility] Mccrory, Violet ROSALES, MARIA ESTHER
--- NOTE | 2023-07-31 16:34 | NURSING ---
dr magaña had given orders to take vs q4 after the earlier bolus. bp still low so communication sent to dr magaña that they are still low
[2023-07-31] MEDS: Acetaminophen 325 MG Tablet 650 MG PO (21:13)
[2023-07-31] MEDS: MELATONIN 3 MG TABLET PO (21:13)
[2023-07-31] MEDS: Pramipexole Di-HCl 0.5 MG Tablet 1.5 MG PO (21:13)
[2023-07-31] MEDS: Folic Acid 1 MG Tablet 0.5 MG PO (21:14)
[2023-07-31] MEDS: Psyllium 1 PACKET PO (21:14)
[2023-07-31] MEDS: Atorvastatin Calcium 20 MG Tablet PO (21:15)
[2023-07-31] MEDS: Amitriptyline 100 MG Tablet PO (21:15)
[2023-08-01] VITALS (8 sets, daily range): BP systolic 111–118; BP diastolic 60–68; PULSE 68–100; RESP 12–18; TEMP 36.6–36.9; O2SAT 92–95; BMI 48.3
[2023-08-01] MEDS: Levothyroxine 175 MCG Tablet PO (05:36)
[2023-08-01] MEDS: Acetaminophen 325 MG Tablet 650 MG PO (06:43)
[2023-08-01] MEDS: Budesonide Respules 0.5 MG/2 ML AMPUL.NEB. INHALATION (07:29)
[2023-08-01] MEDS: Metoprolol(XL)Succ 25 MG Tablet 50 MG PO (09:00)
[2023-08-01] MEDS: Mirabegron 50 MG TAB.ER.24H PO (09:01)
[2023-08-01] MEDS: Miconazole Nitrate 43 GM Bottle 1 APPLIC TOPICAL (09:01)
[2023-08-01] MEDS: Menthol/Lanolin/Calamine/Znox 113 GM Tube 1 APPLIC TOPICAL ×2 (09:01→13:28)
[2023-08-01] MEDS: DULoxetine Hcl 60 MG Capsule PO (09:01)
[2023-08-01] MEDS: Meloxicam 15 MG Tablet PO (09:01)
[2023-08-01] MEDS: sulfaSALAzine 500 MG Tablet 1000 MG PO (09:01)
[2023-08-01] MEDS: Folic Acid 1 MG Tablet PO (09:01)
[2023-08-01] MEDS: Ceftriaxone 1 GM/50 ML BAG IV (09:07)
[2023-08-01] MEDS: 0.9% Saline Lock 10 ML Syringe IV (09:08)
--- NOTE | 2023-08-01 12:10 | PCM.PN.HOSP ---
Subjective Subjective Doing well, feels a bit better than when she came in. Still feels weak in her legs Objective Data Objective Data Vital Signs: Vital Signs Temp Pulse Resp BP Pulse Ox O2 Del Method O2 Flow Rate 98.4 F 100 18 118/68 95 Nasal Cannula 3 08/01/23 08:55 08/01/23 09:00 08/01/23 08:55 08/01/23 08:55 08/01/23 08:55 08/01/23 08:55 08/01/23 09:24 FiO2 35 08/01/23 03:55 Oxygen Flow Rate (L/min) 3 Oxygen Delivery Method Nasal Cannula Weight: 246 lb 0.574 oz Body Mass Index (BMI) 48.3 Intake & Output: Intake and Output for Last 24 Hours 07/31/23 08/01/23 08/02/23 03:59 03:59 03:59 Intake Total 1050 / 1050 1150 / 1150 50 / 50 Output Total 800 / 800 1350 / 1350 1300 / 1300 Balance 250 / 250 -200 / -200 -1250 / -1250 Lab / Micro Data 07/30/23 05:55 07/30/23 05:55 Micro: Microbiology 07/29/23 14:10 Urine, Catheterized Urine Culture - Final Klebsiella pneumoniae sp pneum 07/29/23 14:50 Nasal Secretion SARS-CoV-2 & FLU Antigen (Rapid) - Final Physical Exam Narrative General: Alert, Oriented x3, Cooperative, No apparent distress HEENT: Atraumatic, PERRLA, EOMI, Normocephalic Oral: Moist Mucosa Neck: Supple, No JVD Lungs: Diminished, Normal air movement, No rhonchi, No wheeze, No rales Cardiovascular: Regular rate, Regular Rhythm, Normal S1, Normal S2, No murmurs Abdomen: Soft, Non Tender, Non-Distended, No Hepato-splenomegaly Extremities: No edema, Capillary Refill Less than 3 Seconds Skin: No rashes, No breakdown Musculoskeletal: No Tenderness to Palpation of Joints or Extremities Neurological: Moves all extremities, Sensory exam intact to light touch and pain Psych/Mental Status: Normal Affect, Appropriate Assessment & Plan Assessment/Plan (1) UTI (urinary tract infection): PLAN: Plan #1. Acute Adult FTT secondary to Acute Complicated Urinary Tract Infection: Patient is being admitted in PCU. Patient does not have dysuria but retention found on bladder scan unclear acute or chronic as the patient is elevated. Continue IV ceftriaxone for now. Urine culture pending. PT OT and machine adjuster leader case trim consult. Patient requires 3 people assist to even stand up. 07/31: Continue PT and OT. SNF discharge. Visit person needs follow-up with [facility] orthopedic surgeon in about 2 weeks. She was reluctant to have knee replacement surgery. She had left TKR done by Dr. Fish Rivero in 2004. Urine culture more than 100,000 colonies of Klebsiella pneumoniae. Sensitive to ceftriaxone therefore continued. This is urease splitting bacteria which has potential for causing phosphate stones. Low blood pressure: MAP more than 65. SBP more than 90 mmHg. Asymptomatic. 500 mL bolus ordered. She is on baseline 2 L of oxygen at night and therefore does not want fluid overload. 08/01/2023: UTI due to Klebsiella it is sensitive to Rocephin she is received 4 doses so far will discontinue after her fifth dose #2. Hx VTE (DT, PE) with factor V Leiden: s/p IVCF placement, will continue Coumadin with INR trending as noted, presentation INR 1.7 with additional dose Coumadin given tonight. #3. 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 #4. Chronic ulcerative colitis: continue patient home sulfasalazine chronic home regimen, not on any chronic steroids of note, encourage continued outpatient follow-up with gastroenterology. #5. Chronic thrombocytopenia: Unclear exact etiology, admission platelets pending upon requested evaluation of patient, most recent prior 06/26/2023 platelets 132 however has vacillated, will continue to trend. #6. Chronic macrocytic anemia: Admission hemoglobin/MCV pending upon requested evaluation of patient, prior baseline 11-12, will continue to trend. #7. Chronic Kidney Disease Stage III, unclear subtype: Admission BUN/Cr 24/0.81, baseline renal function since 09/2022 primarily 0.9-1.0, repeat BMP in AM. #8. Anxiety and depression: continue nightly amitriptyline as well as home duloxetine regimen. #9. Hypothyroidism: We will continue patient home levothyroxine regimen, TSH and free T4 levels requested given weakness complaints. #10. Hypertension: Continue home regimen including metoprolol, PRN hydralazine. #11. Hyperlipidemia: We will continue patient home statin therapy. #12. Restless leg syndrome: We will continue patient home pramipexole regimen. #13. Morbid Obesity: Weight loss and lifestyle changes encouraged. #14. Former tobacco use: Encourage continued tobacco cessation. #15. CHAI: BIPAP nightly. #16. DVT prophylaxis: Coumadin Charges/Coding Visit Charges Inpatient E&M: 51130 Subs Hosp L2
--- NOTE | 2023-08-01 12:50 | PCM.TXEXTCAR ---
Diet Diet Order/Speech Therapy: 07/29/23 18:10 Diet: Cardiac - Heart Healthy Food consistency:: Regular Liquid Consistency:: Regular/Thin Routine Orders/Code Status Routine Lab Work: CBC, BMP and INR Code Status: Full Code Wound(s) lt abd fold: Wound Type: Abrasion Therapies Physical Therapy: Eval and Treat Occupational Therapy: Eval and Treat Problem/Diagnosis (1) UTI (urinary tract infection): Status: Acute Code(s): N39.0 - Urinary tract infection, site not specified Plan #1. Acute Adult FTT secondary to Acute Complicated Urinary Tract Infection: Patient is being admitted in PCU. Patient does not have dysuria but retention found on bladder scan unclear acute or chronic as the patient is elevated. Continue IV ceftriaxone for now. Urine culture pending. PT OT and geriatric case manager consult. Patient requires 3 people assist to even stand up. 07/31: Continue PT and OT. SNF discharge. Visit person needs follow-up with [facility] orthopedic surgeon in about 2 weeks. She was reluctant to have knee replacement surgery. She had left TKR done by Dr. Fish Rivero in 2004. Urine culture more than 100,000 colonies of Klebsiella pneumoniae. Sensitive to ceftriaxone therefore continued. This is urease splitting bacteria which has potential for causing phosphate stones. Low blood pressure: MAP more than 65. SBP more than 90 mmHg. Asymptomatic. 500 mL bolus ordered. She is on baseline 2 L of oxygen at night and therefore does not want fluid overload. 08/01/2023: UTI due to Klebsiella it is sensitive to Rocephin she is received 4 doses so far will discontinue after her fifth dose #2. Hx VTE (DT, PE) with factor V Leiden: s/p IVCF placement, will continue Coumadin with INR trending as noted, presentation INR 1.7 with additional dose Coumadin given tonight. #3. 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 #4. Chronic ulcerative colitis: continue patient home sulfasalazine chronic home regimen, not on any chronic steroids of note, encourage continued outpatient follow-up with gastroenterology. #5. Chronic thrombocytopenia: Unclear exact etiology, admission platelets pending upon requested evaluation of patient, most recent prior 06/26/2023 platelets 132 however has vacillated, will continue to trend. #6. Chronic macrocytic anemia: Admission hemoglobin/MCV pending upon requested evaluation of patient, prior baseline -12, will continue to trend. #7. Chronic Kidney Disease Stage III, unclear subtype: Admission BUN/Cr 24/0.81, baseline renal function since 09/2022 primarily 0.9-1.0, repeat BMP in AM. #8. Anxiety and depression: continue nightly amitriptyline as well as home duloxetine regimen. #9. Hypothyroidism: We will continue patient home levothyroxine regimen, TSH and free T4 levels requested given weakness complaints. #10. Hypertension: Continue home regimen including metoprolol, PRN hydralazine. #11. Hyperlipidemia: We will continue patient home statin therapy. #12. Restless leg syndrome: We will continue patient home pramipexole regimen. #13. Morbid Obesity: Weight loss and lifestyle changes encouraged. #14. Former tobacco use: Encourage continued tobacco cessation. #15. CHAI: BIPAP nightly. #16. DVT prophylaxis: Coumadin Allergies/Procedures Done in Hospital Allergies erythromycin base Allergy (Mild, Verified 07/29/23 14:00) unknown aspirin [From Robaxisal] Allergy (Verified 07/29/23 14:00) Unknown digoxin [From Lanoxin] Allergy (Verified 07/29/23 14:00) Unknown etodolac [From Lodine] Allergy (Verified 07/29/23 14:00) Unknown ibuprofen [From Motrin] Allergy (Verified 07/29/23 14:00) Unknown meclizine HCl [From Antivert] Allergy (Verified 07/29/23 14:00) Unknown meclofenamate sodium [From Meclomen] Allergy (Verified 07/29/23 14:00) Unknown methocarbamol [From Robaxisal] Allergy (Verified 07/29/23 14:00) Unknown nabumetone [From Relafen] Allergy (Verified 07/29/23 14:00) Unknown PT STATES IT'S BEEN SO LONG I CAN'T REMEMBER WHAT THEY DO TO ME naproxen Allergy (Verified 07/29/23 14:00) Unknown sulfamethoxazole [From Bactrim] Allergy (Verified 07/29/23 14:00) Unknown trimethoprim [From Bactrim] Allergy (Verified 07/29/23 14:00) Unknown hydrocodone Adverse Reaction (Severe, Verified 07/29/23 14:00) HALLUCINATIONS Penicillins Adverse Reaction (Intermediate, Verified 07/29/23 14:00) Diarrhea Procedures: None Type of Care/Length of Stay Estimated LOS: Convalescent Care Less Than 30 days Type of Care Needed: Skilled Rehab Potential: Good Prognosis: Good Additional Orders/Day of Discharge Day of Discharge: 08/01/23 Dietary and Speech Recommendations Dietitian Recommendations/Changes: Continue diet as ordered. Available for diet education if desired by pt prior to discharge. Discharge Plan Admission Admit Date/Time: 07/29/23 16:03 Attending Provider: Paulo Riley Primary Care Provider: Jovani Mcconnell Consulting Providers: Raine Pickard; Duc Barraza Discharge Orders/Prescriptions Prescriptions: New cefdinir 300 mg capsule 300 mg PO BID 2 Days Qty: 4 0RF Continued folic acid 400 mcg tablet 400 mcg PO QHS meloxicam 15 mg tablet 15 mg PO DAILY levothyroxine 175 mcg tablet 175 mcg PO DAILY cholecalciferol (vitamin D3) 50 mcg (2,000 unit) tablet 2,000 unit PO BID Healthy Eyes SuperVision [id number] capsule 1 cap PO BID duloxetine 60 mg capsule,delayed release(DR/EC) 60 mg PO Q OTHER DAY folic acid 800 mcg tablet 0.8 mg PO QAM Myrbetriq 50 mg tablet extended release 24 hr 50 mg PO DAILY triamcinolone acetonide 0.5 % cream 1 applic topical BID PRN (Reason: rash) warfarin 1 mg tablet 1 mg PO QHS vitamin B complex [B Complex-Vitamin B12] Tablet 1 tab PO DAILY metoprolol succinate 25 mg tablet extended release 24 hr 50 mg PO DAILY diphenhydramine-acetaminophen [Acetaminophen PM] 25-500 mg tablet 1 tab PO QHS PRN (Reason: sleep) rosuvastatin 10 MG tablet 10 mg PO QHS sulfasalazine 500 MG tablet 1,000 mg PO BID calcium carbonate-vitamin D3 500 mg-10 mcg (400 unit) tablet,chewable 1 tab PO BID mometasone-formoterol 8.8 GM HFA aerosol inhaler 1 puff IH BID glucosamine [id number] 1 EACH tablet 1 ea PO BID amitriptyline 100 MG tablet 100 mg PO QHS nystatin 1 APPLIC bottle 1 applic TOPICAL TID PRN (Reason: skin irritation) Rx Instructions: to affected areas loratadine 10 mg tablet 10 mg PO DAILY PRN (Reason: allergies) warfarin 5 MG tablet 5 mg PO QHS pramipexole 1.5 MG tablet 1.5 mg PO QHS Referrals / Follow Up: Jovani Mcconnell MD [Primary Care Provider] - Disposition Disposition (needs filled in before D/C Order can be placed): [facility] Facility
--- NOTE | 2023-08-01 12:54 | PCM.DC.SUM ---
Providers Date of Admission: 07/29/23 Primary Care Physician: Dr. Jovani Mcconnell MD Reason For Visit: ACUTE UTI,ADULT FTT Diagnosis Discharge Diagnosis (1) UTI (urinary tract infection): Status: Acute Code(s): N39.0 - Urinary tract infection, site not specified Medications at Discharge Home Medications rosuvastatin 10 mg tablet 10 mg PO QHS CHOLESTEROL LOWERING 05/13/15 sulfasalazine 500 mg tablet 1,000 mg PO BID COLITIS 10/23/15 amitriptyline 100 mg tablet 100 mg PO QHS SLEEP 01/30/17 glucosamine HCl 500 mg-msm 83 mg-chondroitin 400 mg tablet 1 ea PO BID SUPPLEMENT 01/30/17 mometasone-formoterol HFA 100 mcg-5 mcg/actuation aerosol inhaler 1 puff IH BID BREATHING 01/30/17 nystatin 100,000 unit/gram topical powder 1 applic topical TID PRN skin irritation 10/16/17 pramipexole 1.5 mg tablet 1.5 mg PO QHS restless legs 01/12/20 warfarin 5 mg tablet 5 mg PO QHS blood thinner 01/12/20 loratadine 10 mg tablet 10 mg PO DAILY PRN allergies 05/04/20 cholecalciferol (vitamin D3) 50 mcg (2,000 unit) tablet 2,000 unit PO BID 01/25/21 folic acid 400 mcg tablet 400 mcg PO QHS supplement 01/25/21 levothyroxine 175 mcg tablet 175 mcg PO DAILY 01/25/21 vitamins A,C,N-jjij-psfncs 4,296 mcg-226 mg-90 mg capsule (Healthy Eyes SuperVision) 1 cap PO BID 01/25/21 duloxetine 60 mg capsule,delayed release 60 mg PO Q OTHER DAY depression 07/27/22 folic acid 800 mcg tablet 0.8 mg PO QAM 07/27/22 mirabegron 50 mg tablet,extended release 24 hr (Myrbetriq) 50 mg PO DAILY 07/27/22 triamcinolone acetonide 0.5 % topical cream 1 applic topical BID PRN rash 07/27/22 warfarin 1 mg tablet 1 mg PO QHS 07/27/22 vitamin B complex (B Complex-Vitamin B12 tablet) 1 tab PO DAILY 09/08/22 calcium carbonate 500 mg-vitamin D3 10 mcg (400 unit) chewable tablet 1 tab PO BID SUPPLEMENT 01/12/23 diphenhydramine 25 mg-acetaminophen 500 mg tablet (Acetaminophen PM) 1 tab PO QHS PRN sleep 04/10/23 meloxicam 15 mg tablet 15 mg PO DAILY 04/10/23 metoprolol succinate 25 mg tablet,extended release 24 hr 50 mg PO DAILY htn 04/10/23 cefdinir 300 mg capsule 300 mg PO BID 2 days #4 caps 08/01/23 Hospital Course Operations None Procedures None Summary of Care Provided Minutes Spent on Discharge: 36 Hospital Course: Per HPI: The patient is an 83 y/o F w/ PMHx: Hypothyroidism, CKD stage III unclear subtype, Morbid obesity, Hx VTE (DT, 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 Does report urinary hesitancy which she also had in the ED upon attempting to obtain urine sample. Per family reports she does have a room at the [facility] in assisted living but has not moved in yet and the room is not ready for her. Work-up in the ED included T98.1, heart rate 98, BP 115/60, respiratory rate 18, 81% on room air, CBC pending upon requested evaluation of patient, BMP with BUN/creatinine 24/0.81 otherwise not marked appearing, coags with PT 19.9, INR 1.7 urinalysis with specific gravity 1.020, cloudy, occult blood 150, negative nitrite, leukocyte Estrace 100 with urine RBCs 10-25 and urine WBCs 10-25 with 2+ urine bacteria, urine culture pending per ED, negative SARS COVID and influenza rapid antigen, chest x-ray with no acute cardiopulmonary findings. Prior evaluation included 06/26/23 ED evaluation for weakness with UCx from that presentation with Klebsiella sensitive to several agents including cephalosporins, quinolones, Bactrim. Hospital Course: #1. Acute Adult FTT secondary to Acute Complicated Urinary Tract Infection: Patient is being admitted in PCU. Patient does not have dysuria but retention found on bladder scan unclear acute or chronic as the patient is elevated. Continue IV ceftriaxone for now. Urine culture pending. PT OT and hospice case manager consult. Patient requires 3 people assist to even stand up. 07/31: Continue PT and OT. SNF discharge. Visit person needs follow-up with [facility] surgeon in about 2 weeks. She was reluctant to have knee replacement surgery. She had left TKR done by Dr. Fish Rivero in 2004. Urine culture more than 100,000 colonies of Klebsiella pneumoniae. Sensitive to ceftriaxone therefore continued. This is urease splitting bacteria which has potential for causing phosphate stones. Low blood pressure: MAP more than 65. SBP more than 90 mmHg. Asymptomatic. 500 mL bolus ordered. She is on baseline 2 L of oxygen at night and therefore does not want fluid overload. 08/01/2023: UTI due to Klebsiella it is sensitive to Rocephin she is received 4 doses we will plan for discharge on cefdinir for 2 more days. I discussed with her the plan for discharge today she expressed understanding of the risk benefits of going to the retirement today and would like to go today. #2. Hx VTE (DT, PE) with factor V Leiden: s/p IVCF placement, will continue Coumadin with INR trending as noted, presentation INR 1.7 with additional dose Coumadin given tonight. 08/01/2023: Continue to monitor INR at the retirement continue with her home Coumadin may need to make adjustments based on antibiotics #3. 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 #4. Chronic ulcerative colitis: continue patient home sulfasalazine chronic home regimen, not on any chronic steroids of note, encourage continued outpatient follow-up with gastroenterology. #5. Chronic thrombocytopenia: Unclear exact etiology, admission platelets pending upon requested evaluation of patient, most recent prior 06/26/2023 platelets 132 however has vacillated, will continue to trend. #6. Chronic macrocytic anemia: Admission hemoglobin/MCV pending upon requested evaluation of patient, prior baseline 11-12, will continue to trend. #7. Chronic Kidney Disease Stage III, unclear subtype: Admission BUN/Cr 24/0.81, baseline renal function since 09/2022 primarily 0.9-1.0, repeat BMP in AM. #8. Anxiety and depression: continue nightly amitriptyline as well as home duloxetine regimen. #9. Hypothyroidism: We will continue patient home levothyroxine regimen, TSH and free T4 levels requested given weakness complaints. #10. Hypertension: Continue home regimen including metoprolol, PRN hydralazine. #11. Hyperlipidemia: We will continue patient home statin therapy. #12. Restless leg syndrome: We will continue patient home pramipexole regimen. #13. Morbid Obesity: Weight loss and lifestyle changes encouraged. #14. Former tobacco use: Encourage continued tobacco cessation. #15. CHAI: BIPAP nightly. #16. DVT prophylaxis: Coumadin Weight / BMI Weight Weight: 246 lb 0.574 oz Body Mass Index (BMI) 48.3 ABG / Lab / Microbiology Data 07/30/23 05:55 07/30/23 05:55 Microbiology: Microbiology 07/29/23 14:10 Urine, Catheterized Urine Culture - Final Klebsiella pneumoniae sp pneum 07/29/23 14:50 Nasal Secretion SARS-CoV-2 & FLU Antigen (Rapid) - Final Meaningful Use Info Meaningful Use Diagnoses (Choose all that apply): None applicable Discharge Plan Admission Admit Date/Time: 07/29/23 16:03 Attending Provider: Paulo Riley Primary Care Provider: Jovani Mcconnell Consulting Providers: Raine Pickard; Duc Barraza Discharge Orders/Prescriptions Prescriptions: New cefdinir 300 mg capsule 300 mg PO BID 2 Days Qty: 4 0RF Continued folic acid 400 mcg tablet 400 mcg PO QHS meloxicam 15 mg tablet 15 mg PO DAILY levothyroxine 175 mcg tablet 175 mcg PO DAILY cholecalciferol (vitamin D3) 50 mcg (2,000 unit) tablet 2,000 unit PO BID Healthy Eyes SuperVision [id number] capsule 1 cap PO BID duloxetine 60 mg capsule,delayed release(DR/EC) 60 mg PO Q OTHER DAY folic acid 800 mcg tablet 0.8 mg PO QAM Myrbetriq 50 mg tablet extended release 24 hr 50 mg PO DAILY triamcinolone acetonide 0.5 % cream 1 applic topical BID PRN (Reason: rash) warfarin 1 mg tablet 1 mg PO QHS vitamin B complex [B Complex-Vitamin B12] Tablet 1 tab PO DAILY metoprolol succinate 25 mg tablet extended release 24 hr 50 mg PO DAILY diphenhydramine-acetaminophen [Acetaminophen PM] 25-500 mg tablet 1 tab PO QHS PRN (Reason: sleep) rosuvastatin 10 MG tablet 10 mg PO QHS sulfasalazine 500 MG tablet 1,000 mg PO BID calcium carbonate-vitamin D3 500 mg-10 mcg (400 unit) tablet,chewable 1 tab PO BID mometasone-formoterol 8.8 GM HFA aerosol inhaler 1 puff IH BID glucosamine [id number] 1 EACH tablet 1 ea PO BID amitriptyline 100 MG tablet 100 mg PO QHS nystatin 1 APPLIC bottle 1 applic TOPICAL TID PRN (Reason: skin irritation) Rx Instructions: to affected areas loratadine 10 mg tablet 10 mg PO DAILY PRN (Reason: allergies) warfarin 5 MG tablet 5 mg PO QHS pramipexole 1.5 MG tablet 1.5 mg PO QHS Referrals / Follow Up: Jovani Mcconnell MD [Primary Care Provider] - Disposition Disposition (needs filled in before D/C Order can be placed): Care Home Facility Charges/Coding Visit Charges Inpatient E&M: 41138 Disch Hosp >30min
--- NOTE | 2023-08-01 13:29 | CASEMGMT ---
Social Work Pt can be admitted to [facility] skilled level of care today. SW updated physician and pt is ready for discharge. 7000 convalescent form completed in [facility]. Plan: [place], skilled level of care under convalescent stay ALEJANDRO Walsh
--- NOTE | 2023-08-01 13:46 | CASEMGMT ---
Discharge Planning Discharge orders, signed med list, and transport time sent to [facility]. [facility] will transport patient by wheelchair at 3:30p. Nursing, SW, and patient updated. Patient stated that she would contact her family. Taisha Harris, Discharge Planning Asst.
--- NOTE | 2023-08-01 14:03 | PHA.DC_ITS ---
Pharmacy [facility] has performed discharge medication reconciliation and counseling for this patient. The patient's discharge medication list was reviewed for discrepancies and discrepancies were resolved. The patient was counseled on the following discharge medications and changes in medications for homegoing were reviewed. The Reason for Use, instructions for use, and potential side effects were reviewed for all new medications. The patient's questions regarding all of their medications were answered. 1. Cefdinir 300 mg PO BID x 2 days The patient was able to verbally demonstrate an understanding of their discharge medications. Medications at Discharge Home Medications rosuvastatin 10 mg tablet 10 mg PO QHS CHOLESTEROL LOWERING 05/13/15 sulfasalazine 500 mg tablet 1,000 mg PO BID COLITIS 10/23/15 amitriptyline 100 mg tablet 100 mg PO QHS SLEEP 01/30/17 glucosamine HCl 500 mg-msm 83 mg-chondroitin 400 mg tablet 1 ea PO BID SUPPLEMENT 01/30/17 mometasone-formoterol HFA 100 mcg-5 mcg/actuation aerosol inhaler 1 puff IH BID BREATHING 01/30/17 nystatin 100,000 unit/gram topical powder 1 applic topical TID PRN skin irritation 10/16/17 pramipexole 1.5 mg tablet 1.5 mg PO QHS restless legs 01/12/20 warfarin 5 mg tablet 5 mg PO QHS blood thinner 01/12/20 loratadine 10 mg tablet 10 mg PO DAILY PRN allergies 05/04/20 cholecalciferol (vitamin D3) 50 mcg (2,000 unit) tablet 2,000 unit PO BID 01/25/21 folic acid 400 mcg tablet 400 mcg PO QHS supplement 01/25/21 levothyroxine 175 mcg tablet 175 mcg PO DAILY 01/25/21 vitamins A,C,Q-hdpo-jdhcyr 4,296 mcg-226 mg-90 mg capsule (Healthy Eyes SuperVision) 1 cap PO BID 01/25/21 duloxetine 60 mg capsule,delayed release 60 mg PO Q OTHER DAY depression 07/27/22 folic acid 800 mcg tablet 0.8 mg PO QAM 07/27/22 mirabegron 50 mg tablet,extended release 24 hr (Myrbetriq) 50 mg PO DAILY triamcinolone acetonide 0.5 % topical cream 1 applic topical BID PRN rash 07/27/22 warfarin 1 mg tablet 1 mg PO QHS 07/27/22 vitamin B complex (B Complex-Vitamin B12 tablet) 1 tab PO DAILY 09/08/22 calcium carbonate 500 mg-vitamin D3 10 mcg (400 unit) chewable tablet 1 tab PO BID SUPPLEMENT 01/12/23 diphenhydramine 25 mg-acetaminophen 500 mg tablet (Acetaminophen PM) 1 tab PO QHS PRN sleep 04/10/23 meloxicam 15 mg tablet 15 mg PO DAILY 04/10/23 metoprolol succinate 25 mg tablet,extended release 24 hr 50 mg PO DAILY htn 04/10/23 cefdinir 300 mg capsule 300 mg PO BID 2 days #4 caps 08/01/23
== END 2023-08-01 15:40 | DRG 690 ==
LOC: ED 16:15 → MS3 16:30
PROVIDERS: Nurse Practitioner; Admitting Provider Family Medicine; Emergency Provider Emergency Medicine; PCP Family Medicine; Visit Provider Family Medicine
DX: N39.0 Urinary tract infection, site not specified (principal); D68.2 Hereditary deficiency of other clotting factors; Z68.42 Body mass index [BMI] 45.0-49.9, adult; K51.90 Ulcerative colitis, unspecified, without complications; I27.21 Secondary pulmonary arterial hypertension; D69.6 Thrombocytopenia, unspecified; R62.7 Adult failure to thrive; I95.9 Hypotension, unspecified; N18.30 Chronic kidney disease, stage 3 unspecified; J44.9 Chronic obstructive pulmonary disease, unspecified; J84.10 Pulmonary fibrosis, unspecified; E66.01 Morbid (severe) obesity due to excess calories; D53.9 Nutritional anemia, unspecified; G25.81 Restless legs syndrome; I12.9 Hypertensive chronic kidney disease with stage 1 through stage 4 chronic kidney disease, or unspecified chronic kidney disease; F32.A Depression, unspecified; J30.9 Allergic rhinitis, unspecified; G47.33 Obstructive sleep apnea (adult) (pediatric); E78.5 Hyperlipidemia, unspecified; F41.9 Anxiety disorder, unspecified; M25.561 Pain in right knee; M25.562 Pain in left knee; M17.0 Bilateral primary osteoarthritis of knee; R33.9 Retention of urine, unspecified; Z20.822 Contact with and (suspected) exposure to COVID-19; B96.1 Klebsiella pneumoniae [K. pneumoniae] as the cause of diseases classified elsewhere; R53.1 Weakness; Z99.81 Dependence on supplemental oxygen; Z79.01 Long term (current) use of anticoagulants; Z79.890 Hormone replacement therapy; Z79.899 Other long term (current) drug therapy; Z87.891 Personal history of nicotine dependence
CPT/HCPCS: 36415; 71045; 80048; 80053; 81001; 83735; 84439; 84443; 85025; 85610; 87077; 87086; 87088; 87186; 87428; 93005; 94002; 94003; 94640; 94668; 94762; 97110; 97162; 97166; 97530; 97535; 97802; 99285; J7030; J7040; J7050; P9612; A4216

== ENCOUNTER → 2023-11-03 | Outpatient (CLI) | payer MEDICARE, BC, SELFPAY ==
--- OUTSIDE RECORDS SUMMARY | 2023-11-03 13:29 | XMS RPT_ITS | CCD ---
Author Name Unknown Address [address] [place] [address] Organization [facility] Care Team Providers Care House Steward/Stewardess Name Role Phone Jenny Nugent Unavailable eLtha Kaur Unavailable Vale JENSEN, Taisha Ornelas Unavailable Unavailable Kayla Valdovinos Unavailable Kayla Valdovinos Unavailable Allergies Allergy Classification Reported Allergen(s) Allergy Type Date of Onset Reaction(s) Facility (5 sources) erythromycin Drug Allergy 05-23-2012 [facility] Work Phone: (5 sources) methocarbamol Drug Allergy 05-23-2012 [facility] Work Phone: (5 sources) nabumetone Drug Allergy 05-23-2012 [facility] Work Phone: Medications Completed/Discontinued Medications Medication Drug Class(es) Dates Sig (Normalized) Sig (Original) acetaminophen 325 mg oral tablet (5 sources) Start: 06-20-2017 take 2 tablets by mouth every six hours as needed TYLENOL 325 MG TABS 2 tablets by mouth every 6 hours as needed ACETAMINOPHEN [id number] Taisha Collazo RN 200 actuat albuterol 0.09 mg/actuat metered dose inhaler (10 sources) beta2-Adrenergic Agonist Start: 05-23-2012 End: 06-20-2017 take 2 puff(s) by inhalation every four to six hours as needed VENTOLIN HFA 108 (90 Base) MCG/ACT AERS inhale 2 puffs every 4-6 hours as needed - 90mcg/inh ALBUTEROL SULFATE [id number] Taisha A Vale RN Problems Active Problems Problem Classification Problem Date Documented Da te Episodic/Chronic Disorders of lipid metabolism (5 sources) Hyperlipidemia; Translations: [Hyperlipidemia, unspecified] Onset: 05-23-2012 05-23-2012 Chronic Essential hypertension (5 sources) Hypertensive disorder; Translations: [Essential (primary) hypertension] Onset: 05-23-2012 05-23-2012 Chronic Other nervous system disorders (1 source) Carpal tunnel syndrome; Translations: [Carpal tunnel syndrome, unspecified upper limb] Onset: 10-05-2017 10-05-2017 Chronic Other nutritional; endocrine; and metabolic disorders (3 sources) Finding of body mass index; Translations: [Body mass index (BMI) 50.0-59.9, adult] Onset: 12-16-2014 12-16-2014 Chronic Pulmonary heart disease (5 sources) Pulmonary hypertension; Translations: [Other secondary pulmonary hypertension] Onset: 05-27-2013 05-27-2013 Chronic Unclassified (2 sources) Body mass index (BMI) 50-59.9 , adult; Translations: [Body mass index (BMI) 50-59.9 , adult] Onset: 12-16-2014 12-16-2014 Chronic Past or Other Problems Problem Classification Problem Date Documented Da te Episodic/Chronic Phlebitis; thrombophlebitis and thromboembolism (5 sources) History of thrombophlebitis; Translations: [Personal history of thrombophlebitis] Onset: 05-23-2012 05-23-2012 Episodic Pulmonary heart disease (5 sources) Other pulmonary embolism without acute cor pulmonale; Translations: [Other pulmonary embolism and infarction] Onset: 05-23-2012 05-23-2012 Episodic Results Test Name Value Interpretation Reference Range Facil it Vital Signs Date Time Vital Sign Value Performing Clinician Facility 10-05-2017 08:27-0500 BMI (Body Mass Index) 63.5 kg/m2 [facility] Work Phone: 10-05-2017 08:27-0500 Weight 167.83 kg [facility] Work Phone: 06-21-2017 13:27-0400 Body height 162.56 cm Kayla Valdovinos Work Phone: [facility] Work Phone: 06-21-2017 13:27-0400 Body mass index (BMI) [Ratio] 55.46 kg/m2 Kayla Valdovinos Work Phone: [facility] Work Phone: 06-21-2017 13:27-0400 Body weight 146.57 kg Kayla Valdovinos Work Phone: [facility] Work Phone: 06-21-2017 13:27-0400 Diastolic blood pressure 60 mm[Hg] Kayla Valdovinos Work Phone: [facility] Work Phone: 06-21-2017 13:27-0400 Heart rate 80 /min Kayla Valdovinos Work Phone: [facility] Work Phone: 06-21-2017 13:27-0400 Respiratory rate 20 /min Kayla Valdovinos Work Phone: [facility] Work Phone: 06-21-2017 13:27-0400 Systolic blood pressure 126 mm[Hg] Kayla Valdovinos Work Phone: [facility] Work Phone: 06-21-2017 13:27-0400 Weight 146.57 kg Letha Kaur [facility] Work Phone: 12-19-2016 12:51-0500 Body mass index (BMI) [Ratio] 55.06 kg/m2 Taisha Collazo RN [facility] Work Phone: 12-19-2016 12:51-0500 Body surface area Derived from formula 2.39 m2 Taisha Collazo RN [facility] Work Phone: 12-19-2016 12:51-0500 Body weight 145.51 kg Taisha Collazo RN [facility] Work Phone: 12-19-2016 12:51-0500 Diastolic blood pressure 72 mm[Hg] Taisha Collazo RN [facility] Work Phone: 12-19-2016 12:51-0500 Heart rate 75 /min Taisha Collazo RN [facility] Work Phone: 12-19-2016 12:51-0500 Respiratory rate 20 /min Taisha Collazo RN [facility] Work Phone: 06-20-2016 13:45-0400 Systolic blood pressure 120 mm[Hg] Taisha Collazo RN [facility] Work Phone: 06-15-2015 14:07-0400 Body height 162.56 cm Taisha Collazo RN [facility] Work Phone: Procedures Date Procedure Procedure Detail Performing Clinician Start: 06-21-2017 End: 06-21-2017 Follow Up Appt 1 year Maynor Roldan MD Start: 06-21-2017 End: 06-21-2017 JUSTYNA Roldan MD Start: 06-21-2017 End: 06-21-2017 Documentation of current medications Kayla Valdovinos Work Phone: Start: 06-21-2017 End: 06-21-2017 Follow Up Appt 1 year Maynor Roldan MD Start: 06-21-2017 End: 06-21-2017 JUSTYNA Roldan MD Start: 12-19-2016 End: 12-19-2016 PHYLLIS Antonio PA-C Work Phone: Start: 12-19-2016 End: 12-19-2016 Follow Up Appt 6 months Consuelo huerta PA-C Work Phone: Start: 12-19-2016 End: 12-19-2016 Documentation of current medications Taisha Collazo RN Start: 12-19-2016 End: 12-19-2016 PHYLLIS Antonio PA-C Work Phone: Start: 12-19-2016 End: 12-19-2016 Follow Up Appt 6 months Consuelo huerta PA-C Work Phone: Start: 06-20-2016 End: 06-20-2016 Follow Up Appt 6 months Tara Morrell Start: 06-20-2016 End: 06-20-2016 JUSTYNA Roldan MD Start: 06-20-2016 End: 06-20-2016 Follow Up Appt 6 months Tara Morrell Start: 06-20-2016 End: 06-20-2016 JUSTYNA Roldan MD Start: 06-15-2015 End: 12-13-2016 PHYLLIS Roldan MD Start: 06-15-2015 End: 06-15-2015 Documentation of current medications Maynor Roldan MD Start: 06-15-2015 End: 12-13-2016 Follow Up Appt 1 year Maynor Roldan MD Start: 06-15-2015 End: 12-13-2016 PHYLLIS Roldan MD Start: 06-15-2015 End: 06-15-2015 Documentation of current medications Maynor Roldan MD Start: 06-15-2015 End: 12-13-2016 Follow Up Appt 1 year Maynor Roldan MD Start: 12-16-2014 End: 12-16-2014 [employer] Consuelo Antonio PA-C Work Phone: Start: 12-16-2014 End: 12-17-2014 Documentation of current medications Consuelo Antonio PA-C Work Phone: Start: 12-16-2014 End: 12-16-2014 Ecg routine ecg w/least 12 lds w/i&r Consuelo Antonio PA-C Work Phone: Start: 12-16-2014 End: 12-16-2014 Follow Up Appt 6 months Consuelo huerta PA-C Work Phone: Start: 12-16-2014 End: 12-16-2014 Dietary management education, guidance, and counseling Taisha Collazo RN Start: 12-16-2014 End: 12-16-2014 [employer] Consuelo Antonio PA-C Work Phone: Start: 12-16-2014 End: 12-17-2014 Documentation of current medications Consuelo Antonio PA-C Work Phone: Start: 12-16-2014 End: 12-16-2014 Ecg routine ecg w/least 12 lds w/i&r Consuelo Antonio PA-C Work Phone: Start: 12-16-2014 End: 12-16-2014 Follow Up Appt 6 months Consuelo huerta PA-C Work Phone: Start: 05-22-2014 End: 05-22-2014 Follow Up Appt 6 months Tara Morrell Start: 05-22-2014 End: 05-22-2014 JUSTYNA Roldan MD Start: 05-22-2014 End: 05-22-2014 Follow Up Appt 6 months Tara Morrell Start: 05-22-2014 End: 05-22-2014 JUSTYNA Roldan MD Start: 05-27-2013 End: 05-27-2013 PHYLLIS Roldan MD Start: 05-27-2013 End: 11-10-2014 Benitez Roldan MD Start: 05-27-2013 End: 05-27-2013 Follow Up Appt 1 year Maynor Roldan MD Start: 05-27-2013 End: 05-27-2013 [employer] EQU[employer]MENT MECH[employer]IC Maynor Roldan MD Start: 05-27-2013 End: 11-10-2014 Echocardiography Maynor Roldan MD Start: 05-27-2013 End: 05-27-2013 Follow Up Appt 1 year Maynor Roldan MD Start: 11-20-2012 End: 11-20-2012 Follow Up Appt 6 months Tara Morrell Start: 11-20-2012 End: 11-20-2012 Follow Up Appt 6 months Tara Morrell Start: 05-24-2012 End: 05-24-2012 Follow Up Appt 6 months Tara Morrell Start: 05-24-2012 End: 05-24-2012 Follow Up Appt 6 months Tara Morrell Plan of Treatment Date Care Activity Detail Author Start: 06-21-2018 End: 06-21-2018 Appointment Appointment [facility] Work Phone: Start: 10-05-2017 End: 10-05-2017 Appointment Appointment [facility] Work Phone: Start: 06-21-2017 End: 06-21-2017 Follow Up Appt 1 year Follow Up Appt 1 year [facility] Work Phone: Start: 06-21-2017 End: 06-21-2017 MMM MMM [facility] Work Phone: Start: 06-21-2017 End: 06-21-2017 Patient encounter procedure Appointment [facility] Work Phone: Start: 06-21-2017 End: 06-21-2017 Follow Up Appt 1 year Follow Up Appt 1 year [facility] Work Phone: Start: 06-21-2017 End: 06-21-2017 MMM MMM [facility] Work Phone: Start: 12-19-2016 End: 12-19-2016 [facility] Work Phone: Start: 12-19-2016 End: 12-19-2016 Follow Up Appt 6 months Follow Up Appt 6 months [facility] Work Phone: Start: 12-19-2016 End: 12-19-2016 [facility] Work Phone: Start: 12-19-2016 End: 12-19-2016 Follow Up Appt 6 months Follow Up Appt 6 months [facility] Work Phone: Start: 06-20-2016 End: 06-20-2016 Follow Up Appt 6 months Follow Up Appt 6 months [facility] Work Phone: Start: 06-20-2016 End: 06-20-2016 MMM MMM [facility] Work Phone: Start: 06-20-2016 End: 06-20-2016 Follow Up Appt 6 months Follow Up Appt 6 months [facility] Work Phone: Start: 06-20-2016 End: 06-20-2016 MMM MMM [facility] Work Phone: Start: 06-15-2015 End: 12-13-2016 [facility] Work Phone: Start: 06-15-2015 End: 12-13-2016 Follow Up Appt 1 year Follow Up Appt 1 year [facility] Work Phone: Start: 06-15-2015 End: 12-13-2016 [facility] Work Phone: Start: 06-15-2015 End: 12-13-2016 Follow Up Appt 1 year Follow Up Appt 1 year [facility] Work Phone: Start: 12-16-2014 End: 12-16-2014 [facility] Work Phone: Start: 12-16-2014 End: 12-16-2014 Ecg routine ecg w/least 12 lds w/i&r EKG (In office) [facility] Work Phone: Start: 12-16-2014 End: 12-16-2014 Follow Up Appt 6 months Follow Up Appt 6 months [facility] Work Phone: Start: 12-16-2014 End: 12-16-2014 [facility] Work Phone: Start: 12-16-2014 End: 12-16-2014 Ecg routine ecg w/least 12 lds w/i&r EKG (In office) [facility] Work Phone: Start: 12-16-2014 End: 12-16-2014 Follow Up Appt 6 months Follow Up Appt 6 months [facility] Work Phone: Start: 05-22-2014 End: 05-22-2014 Follow Up Appt 6 months Follow Up Appt 6 months [facility] Work Phone: Start: 05-22-2014 End: 05-22-2014 MMM MMM [facility] Work Phone: Start: 05-22-2014 End: 05-22-2014 Follow Up Appt 6 months Follow Up Appt 6 months [facility] Work Phone: Start: 05-22-2014 End: 05-22-2014 MMM MMM [facility] Work Phone: Start: 05-27-2013 End: 05-27-2013 [facility] Work Phone: Start: 05-27-2013 End: 05-27-2013 Echocardiography Echocardiogram (complete) [facility] Work Phone: Start: 05-27-2013 End: 05-27-2013 Follow Up Appt 1 year Follow Up Appt 1 year [facility] Work Phone: Start: 05-27-2013 End: 05-27-2013 [employer]CH[employer] [facility] Work Phone: Start: 05-27-2013 End: 05-27-2013 Echocardiography Echocardiogram (complete) [facility] Work Phone: Start: 05-27-2013 End: 05-27-2013 Follow Up Appt 1 year Follow Up Appt 1 year [facility] Work Phone: Start: 11-20-2012 End: 11-20-2012 Follow Up Appt 6 months Follow Up Appt 6 months [facility] Work Phone: Start: 11-20-2012 End: 11-20-2012 Follow Up Appt 6 months Follow Up Appt 6 months [facility] Work Phone: Start: 05-24-2012 End: 05-24-2012 Follow Up Appt 6 months Follow Up Appt 6 months [facility] Work Phone: Start: 05-24-2012 End: 05-24-2012 Follow Up Appt 6 months Follow Up Appt 6 months [facility] Work Phone: Fall risk assessment 06-21-2017 Note Date & Type Note Facility Additional Source Comments FOR RECORDS PERTAINING TO PATIENTS WHO ARE OR HAVE BEEN ENROLLED IN A CHEMICAL DEPENDENCY/SUBSTANCEABUSE PROGRAM, SOME INFORMATION MAY BE OMITTED. This clinical summary was aggregated from multiple sources. Caution should be exercised in using it in the provision of clinical care. This summary normalizes information from multiple sources, and as a consequence, information in this document may materially change the coding, format and clinical context of patient data. In addition, data may be omitted in some cases. CLINICAL DECISIONS SHOULD BE BASED ON THE PRIMARY CLINICAL RECORDS. [facility]. provides no warranty or guarantee of the accuracy or completeness of information in this document.
[2023-11-03 13:52] LABS: Color, Urine Brown (Yellow); Glucose, Dipstick Normal (Normal); Ketone-Dipstick 5 mg/dl (Negative); Leukocyte Esterase-Dipstick 500 /ul (Negative); Nitrite-Dipstick Positive (Negative); Occult Blood-Urine 250 /ul (Negative); Protein-Dipstick 100 mg/dl (Negative); Specific Gravity, Urine 1.025 (1.002-1.030); Urine Clarity Cloudy (Clear); Urine Urobilinogen 1 mg/dl (Normal)
[2023-11-03 13:54] LABS: Urine Bilirubin Dipstick 1 mg/dL (Negative)
== END | disposition home or self-care (01) ==
PROVIDERS: PCP Family Medicine; Visit Provider Family Medicine
DX: N39.0 Urinary tract infection, site not specified (principal); R30.0 Dysuria
CPT/HCPCS: 81002; 87077; 87086; 87088; 87186

== ENCOUNTER 2023-11-13 12:19 | Inpatient (IN) | payer MEDICARE, BC, SELFPAY ==
[2023-11-13] VITALS (15 sets, daily range): BP systolic 98–153; BP diastolic 55–113; PULSE 71–130; RESP 16–25; TEMP 36.7–37.4; O2SAT 82–95; BMI 45.6; BMI 47.3
--- NOTE | 2023-11-13 12:50 | CT_ITS ---
STUDY: CT ABDOMEN AND PELVIS WITH CONTRAST REASON FOR EXAM: Female, 83 years old. Lower abd pain RADIATION DOSAGE (If Supplied By Facility): CTDIvol = ( 21.94 ) mGy, DLP = ( 1715.60 ) mGycm TECHNIQUE: IV 100mL Isovue-300 was administered. Transaxial images were obtained from the dome of the diaphragm to the symphysis pubis. Multiplanar coronal and sagittal images were reformatted. Individualized Dose Optimization Techniques Were Used For This CT. COMPARISON: Prior study dated: 01/13/2014 FINDINGS: Atelectatic changes in both lower lobes. Coronary calcifications The visualized portions of the heart are within normal limits. Markedly suboptimal enhancement. No focal lesion is definitely seen in the liver. There is non-visualization of the gallbladder, which may be secondary to either contraction or a prior cholecystectomy. Normal spleen. Normal pancreas. Normal bilateral adrenal glands. 8 mm nonobstructing stone in the left renal pelvis. Additional nonobstructing stones bilaterally. No evidence of hydronephrosis. 2.7 cm left renal cyst appears to be simple and no further follow-up is needed. Distended stomach. Nonspecific fluid-filled small bowel loops without evidence of bowel obstruction. Fecal retention. No evidence of acute diverticulitis. There is non-visualization of the appendix. There is diffuse atherosclerotic calcification of the abdominal aorta, without a demonstrated aneurysm. Infrarenal IVC filter is seen No retroperitoneal adenopathy. The bladder is not distended. Air in the bladder presumably secondary to recent catheterization. Otherwise infectious process cannot be excluded. Normal abdominal wall. Multilevel degenerative changes of the spine. CT/Abdomen/Pelvis W IV Cont ONLY IMPRESSION: 1. Nonspecific fluid-filled small bowel loops without evidence of bowel obstruction. 2. No focal acute inflammatory process. 3. Bilateral nonobstructing renal stones, the largest is in the left renal pelvis. 4. Fecal retention concerning for constipation. Electronically Signed: Cuong Duncan MD at 15:48 EST ,
--- NOTE | 2023-11-13 12:53 | EDS_ITS ---
HPI HPI - GI History of Present Illness Chief Complaint: Abd Pain Informant: patient Abdominal Pain/Flank Pain Onset: Today and Hours Context: Gradual Onset Timing: Intermittent Quality: Cramping Location: RLQ Current Severity: Mild Maximum Severity: Mild Nausea/Vomiting/Emesis GI Symptom: Positive for Nausea Severity: Mild Diarrhea/Melena/Hematochezia GI Symptom: Negative for Diarrhea, Melena or Hematochezia Associated Symptoms Associated Symptoms: Negative for Dysuria, Frequency, Hematuria or Urgency Narrative Narrative: 83-year-old female from the [facility] extensive past medical history including CKD, COPD on blood thinner which she believes is Eliquis previously was on Coumadin but then had it switched. Currently being treated for UTI on it antibiotic for about a week she is unsure the antibiotic. Complaining of lower abdominal pain with either burping up coffee-ground emesis or coughing it up. Denies any fever or chills. Had a bowel movement yesterday does not know if it was melanotic or black. No history of prior GI bleed. Den ies any fever or chills. Prior similar symptoms: No Recent Illness/Hospitalization: No PFSH PFSH Medical History Carpal tunnel syndrome Chronic anticoagulation CKD (chronic kidney disease) COPD (chronic obstructive pulmonary disease) Essential hypertension Fracture of right radius History of deep venous thrombosis History of pulmonary embolus (PE) (2008) History of ulcerative colitis Hyperlipidemia Hypotension Morbid obesity CHAI treated with BiPAP Presence of IVC filter Pulmonary fibrosis Restless leg syndrome RLS (restless legs syndrome) Secondary pulmonary arterial hypertension Thrombocytopenia Home Medications rosuvastatin 10 mg tablet 10 mg PO QHS CHOLESTEROL LOWERING 05/13/15 [History Last Taken 07/28/23] sulfasalazine 500 mg tablet 1,000 mg PO BID COLITIS 10/23/15 [History Last Taken 07/28/23] amitriptyline 100 mg tablet 100 mg PO QHS DEPRESSION 01/30/17 [History Last Taken 11/12/23] glucosamine HCl 500 mg-msm 83 mg-chondroitin 400 mg tablet 1 ea PO BID SUPPLEMENT 01/30/17 [History Last Taken 07/28/23] nystatin 100,000 unit/gram topical powder 1 applic topical TID PRN skin irritation 10/16/17 [History Last Taken Unknown] pramipexole 1.5 mg tablet 1.5 mg PO QHS restless legs 01/12/20 [History Last Taken 07/28/23] loratadine 10 mg tablet 10 mg PO DAILY PRN allergies 05/04/20 [History Last Taken 07/28/23] cholecalciferol (vitamin D3) 50 mcg (2,000 unit) tablet 2,000 unit PO BID 01/25/21 [History Last Taken 07/28/23] folic acid 400 mcg tablet 400 mcg PO QHS supplement 01/25/21 [History Last Taken 07/28/23] levothyroxine 175 mcg tablet 175 mcg PO DAILY 01/25/21 [History Last Taken 11/13/23] duloxetine 60 mg capsule,delayed release 60 mg PO Q OTHER DAY depression 07/27/22 [History Last Taken 11/13/23] mirabegron 50 mg tablet,extended release 24 hr (Myrbetriq) 50 mg PO DAILY 07/27/22 [History Last Taken Unknown] triamcinolone acetonide 0.5 % topical cream 1 applic topical BID PRN rash 07/27/22 [History Last Taken Unknown] vitamin B complex (B Complex-Vitamin B12 tablet) 1 tab PO DAILY 09/08/22 [History Last Taken 07/28/23] calcium carbonate 500 mg-vitamin D3 10 mcg (400 unit) chewable tablet 1 tab PO BID SUPPLEMENT 01/12/23 [History Last Taken 07/28/23] metoprolol succinate 25 mg tablet,extended release 24 hr 50 mg PO DAILY htn 04/10/23 [History Last Taken 07/28/23] acetaminophen 500 mg tablet (Tylenol Extra Strength) 500 mg PO Q6H PRN 09/12/23 [History Last Taken Unknown] fluticasone propionate 50 mcg/actuation nasal spray,suspension (Allergy Relief (fluticasone)) 1 spray intranasal DAILY 09/12/23 [History Last Taken Unknown] lidocaine 4 % topical patch 1 patch topical DAILY PRN 09/12/23 [History Last Taken Unknown] melatonin 3 mg capsule 3 mg PO HS PRN 09/12/23 [History Last Taken Unknown] nitrofurantoin monohydrate/macrocrystals 100 mg capsule PO 09/12/23 [History Last Taken Unknown] tramadol 50 mg tablet 50 mg PO DAILY 09/12/23 [History Last Taken Unknown] warfarin 1 mg tablet 1 mg PO QHS 09/12/23 [History Last Taken Unknown] warfarin 6 mg tablet 6 mg PO DAILY 09/12/23 [History Last Taken Unknown] d-mannose 500 mg capsule (AZO D-Mannose) 2,000 mg PO QHS UTI PREVENTION 11/13/23 [History Last Taken 11/12/23] Allergy/AdvReac Type Severity Reaction Status Date / Time erythromycin base Allergy Mild unknown Verified 09/19/23 14:50 aspirin [From Robaxisal] Allergy Unknown Verified 09/19/23 14:50 digoxin [From Lanoxin] Allergy Unknown Verified 09/19/23 14:50 etodolac [From Lodine] Allergy Unknown Verified 09/19/23 14:50 ibuprofen [From Motrin] Allergy Unknown Verified 09/19/23 14:50 meclizine HCl [From Antivert] Allergy Unknown Verified 09/19/23 14:50 meclofenamate sodium Allergy Unknown Verified 09/19/23 14:50 [From Meclomen] methocarbamol Allergy Unknown Verified 09/19/23 14:50 [From Robaxisal] nabumetone [From Relafen] Allergy Unknown Verified 09/19/23 14:50 naproxen Allergy Unknown Verified 09/19/23 14:50 sulfamethoxazole Allergy Unknown Verified 09/19/23 14:50 [From Bactrim] trimethoprim [From Bactrim] Allergy Unknown Verified 09/19/23 14:50 hydrocodone AdvReac Severe HALLUCINATI Verified 09/19/23 14:50 ONS Penicillins AdvReac Intermediate Diarrhea Verified 09/19/23 14:50 Family History Father Prostate cancer Brother Heart disease Mother Parkinsons disease Surgical History H/O colonoscopy H/O right heart catheterization (04/11/19) History of appendectomy History of basal cell carcinoma excision History of carpal tunnel surgery of right wrist History of cholecystectomy History of total left knee replacement (12/19/07) S/P appendectomy S/P cholecystectomy S/P Mohs surgery for basal cell carcinoma Status post total left knee replacement Social History household members: none Smoking Status: Former smoker how long ago did patient quit smokin years ago alcohol intake: never substance use type: does not use caffeine: Yes Type: coffee Number of servings: 1 ROS ROS ED ROS Narrative Abdominal pain. Possible coffee-ground emesis. Constitutional Constitutional ED: Denies chills or fever(s) ENT ENT ED: Denies ear pain Cardiovascular Cardiovascular: Denies chest pain Respiratory/Chest Respiratory/Chest: Denies cough or dyspnea Gastrointestinal Gastrointestinal: Reports abdominal pain and nausea; Denies constipation, diarrhea, melena or vomiting Genitourinary Genitourinary ED: Denies dysuria or hematuria Musculoskeletal Musculoskeletal: Denies arthralgias Integumentary Denies abscess Neurologic Neurologic: Denies headache(s) Psychiatric Psychiatric: Denies anxiety Hematologic/Lymphatic Hematologic/Lymphatic: Denies easy bleeding Allergic/Immunologic Allergic/Immunologic ED: Denies mouth swelling or tongue swelling EXAM Physical Exam Narrative Exam Narrative: 83-year-old female no acute distress. Vital signs are stable. Her pulse ox is 85% on 4 L she goes to 92%. She does use oxygen as needed. HEENT exam unremarkable. Posterior pharynx unremarkable. She does have some brown emesis stains on her shirt. Neck nontender. Lungs coarse breath sounds bilaterally. No wheezing. Heart rate about 120. Tachycardic. No appreciable murmur. Chest wall nontender. Abdomen soft nondistended normal bowel sounds no peritoneal signs. Minimal suprapubic and lower quadrant tenderness. No hernia or mass. No obstruction. Moving all 4 extremities. Nontender no edema. Neurologically she is awake and alert. Answering questions and following commands. Moving all 4 extremities. Const Vital Signs: 11/13/23 12:19 11/13/23 12:28 11/13/23 15:35 Temperature 98.8 F 98.7 F Temperature Source Oral Temporal Pulse Rate 71 129 H 122 H Respiratory Rate 20 H 20 H 20 H Blood Pressure 114/75 104/64 98/55 L Blood Pressure Mean 88 77 69 Pulse Ox 85 92 90 Oxygen Delivery Method Nasal Cannula Nasal Cannula Nasal Cannula Oxygen Flow Rate (L/min) 4 4 4 Positive well nourished and well developed; Negative for cachectic, contractures or unkempt General Appearance ED: well developed and NAD; Negative for unkempt, cachectic, contractures or pallor Nutritional Appearance: Negative for cachectic HEENT Reports moist mucous membranes normocephalic and atraumatic; Negative for trauma or tenderness Eyes PERRL and EOMs intact bilaterally General Eye ED: Negative for pale conjunctiva, scleral icterus or other Neck no lymphadenopathy, supple and no JVD General: Negative for tenderness Lymph Lymphatic: Negative for other Resp normal respiratory effort and clear to auscultation bilaterally Effort and Inspection: Negative for respiratory distress Auscultation: Negative for rales, rhonchi or wheezes Cardio regular rhythm, S1 normal heart sound, S2 normal heart sound and no murmurs Rate: tachycardic Rhythm: Negative for abnormal rhythm GI non-distended and no masses; Negative for non-tender Auscultation: normoactive bowel sounds Palpation: soft and tender; Negative for guarding, hernia, mass, pulsatile mass or rebound tenderness present Extremity full ROM General Extremety ED: Negative for edema or tenderness General Extremity: Negative for edema Neuro CN's II-XII intact bilaterally and moves all extremities Sensorium / Orientation: alert, oriented to person, oriented to place and oriented to time Motor Exam: strength 5/5 throughout Psych mental status grossly normal and thought process normal Appearance: Negative for unkempt Attitude: No agitated Mood & Affect: Negative for depressed, anxious or tearful Skin no wounds General Skin Exam: Negative for jaundice or pallor Lesions: no lesions Rashes: no rashes Trauma: Negative for abrasion Nails: Negative for discolored MDM MDM MDM Narrative Medical decision making narrative: 83-year-old on anticoagulants for lower abdominal pain and possibly upper GI bleed with coffee-ground emesis versus coughing up coffee-ground material. CAT scan and labs are pending. Repeat exam is most recent 1:04 PM patient is doing well. She was to be discharged back to the extended care facility. We really have no specific findings or abnormalities on her today. Nothing to admitted to the hospital for. Her labs are her baseline. It is difficult to tell if she coughed up blood or if she develops dark blood. She has had no v omiting. She is currently on Eliquis. There is no signs of any significant bleeding. History & Record Review Discussion w/independent historian: Patient Additional record(s) reviewed:: Prior inpatient record, Prior outpatient record, Prior ED visit, Prior labs and No prior records Lab Data Attestation: I reviewed the patient's lab results. Lab results narrative: CBC shows an elevated white count of 14. H&H of 14 and 47. Platelets 307. PT/INR 17 and 1.4. Chemistries show a gap of 5. BUN of 33 creatinine 1.1 consistent with mild dehydration. Glucose 139. Liver enzymes normal. Lipase normal at 27. Urinalysis shows positive nitrates, 250 occult blood. 25-50 red cells. No white cells. 1+ bacteria. She is currently being treated for UTI on antibiotics. Blood type is a positive. COVID, flu and RSV are negative. CAT scan shows no acute abnormalities of the abdomen. Labs: Laboratory Results - last 24 hr 11/13/23 11/13/23 13:12 13:40 WBC 14.0 H RBC 4.64 Hgb 14.3 Hct 47.3 H MCV 101.9 H MCH 30.8 MCHC 30.2 L RDW Std Deviation 54.5 H RDW Coeff of Sina 14.5 Plt Count 307 MPV 8.9 Immature Gran % (Auto) 0.600 Neut % (Auto) 91.4 H Lymph % (Auto) 4.1 L [place] % (Auto) 3.4 Eos % (Auto) 0.1 Baso % (Auto) 0.4 Absolute Neuts (auto) 12.8 H Absolute Lymphs (auto) 0.58 L Nucleated RBC % 0 Differential Comment COMMENT PT 17.3 H INR 1.4 Sodium 137 Potassium 3.9 Chloride 106 Carbon Dioxide 26.0 Anion Gap 5 BUN 33 H Creatinine 1.11 H Est GFR (MDRD) Af Amer 60 Est GFR (MDRD) Non-Af 50 L BUN/Creatinine Ratio 29.7 H Glucose 139 H Calcium 10.6 H Total Bilirubin 0.80 AST 19 ALT 21 Alkaline Phosphatase 113 Troponin I High Sens 8 Total Protein 8.1 Albumin 3.2 Globulin 4.9 H Albumin/Globulin Ratio 0.7 L Lipase 27 Urine Color [place] Urine Clarity Sl. Cloudy Urine pH 5.0 Ur Specific [place] 1.025 Urine Protein 100 H Urine Glucose (UA) Normal Urine Ketones 5 H Urine Occult Blood 250 H Urine Nitrite Positive H Urine Bilirubin 3 H Urine Urobilinogen 1 H Ur Leukocyte Esterase 25 H Urine RBC 25-50 SEEN Urine WBC 0-5 SEEN Ur Squamous Epith Cells 0-5 SEEN Urine Bacteria 1+ Urine Mucus 0 SEEN Blood Type A POSITIVE Antibody Screen NEGATIVE Radiography Chest X-Ray - ED: 1 View, Read by ED Physician, Read by Radiologist, Heart, Lungs, Mediastinum, Bony Structures, No Acute Disease and Chronic Changes Diagnostic Testing: Clinical Impression(s) from Imaging Studies Abdomen/Pelvis CT 11/13/23 12:50 IMPRESSION: 1. Nonspecific fluid-filled small bowel loops without evidence of bowel obstruction. 2. No focal acute inflammatory process. 3. Bilateral nonobstructing renal stones, the largest is in the left renal pelvis. 4. Fecal retention concerning for constipation. Electronically Signed: Cuong Duncan MD at 15:48 EST , Chest X-Ray 11/13/23 13:42 IMPRESSION: No radiographic evidence of acute cardiopulmonary disease. Electronically Signed: Cuong Duncan MD at 13:56 EST , Chest x-ray, portable, single view interpreted by myself and radiologist shows no acute abnormality. Normal cardiac silhouette. Normal lung rivas. No pneumonia. No mass. Rhythm Strip Rhythm Strip: Sinus Tach Rate: 126 Ectopy: None EKG Initial EKG: Attestation: I personally reviewed and interpreted this EKG as follows: Interpretation: No Acute Injury Pattern and Sinus Tachycardia Comments: Sinus tachycardia rate of 126. No acute signs of IN or ischemia. Prior EKG tracings: available for review Discharge Plan Triage Chief Complaint: Abd Pain ED Provider: Bill Montoya Dx/Rx/DC Orders Clinical Impression: UTI (urinary tract infection), Chronic anticoagulation, Abdominal pain Instructions: Abdominal Pain, ED Cystitis Female Adult Prescriptions: No Action folic acid 400 mcg tablet 400 mcg PO QHS levothyroxine 175 mcg tablet 175 mcg PO DAILY cholecalciferol (vitamin D3) 50 mcg (2,000 unit) tablet 2,000 unit PO BID duloxetine 60 mg capsule,delayed release(DR/EC) 60 mg PO Q OTHER DAY Myrbetriq 50 mg tablet extended release 24 hr 50 mg PO DAILY triamcinolone acetonide 0.5 % cream 1 applic topical BID PRN (Reason: rash) warfarin 1 mg tablet 1 mg PO QHS Rx Instructions: tues, thurs, sat, sun vitamin B complex [B Complex-Vitamin B12] Tablet 1 tab PO DAILY metoprolol succinate 25 mg tablet extended release 24 hr 50 mg PO DAILY acetaminophen [Tylenol Extra Strength] 500 mg tablet 500 mg PO Q6H PRN warfarin 6 mg tablet 6 mg PO DAILY lidocaine 4 % adhesive patch,medicated 1 patch topical DAILY PRN tramadol 50 mg tablet 50 mg PO DAILY fluticasone propionate [Allergy Relief (fluticasone)] 50 mcg/actuation spray,suspension 1 spray intranasal DAILY Rx Instructions: administer into each nostril nitrofurantoin monohyd/m-cryst 100 mg capsule PO Patient Comments: TAKE 1 CAPSULE BY MOUTH TWICE DAILY melatonin 3 mg capsule 3 mg PO HS PRN rosuvastatin 10 MG tablet 10 mg PO QHS sulfasalazine 500 MG tablet 1,000 mg PO BID calcium carbonate-vitamin D3 500 mg-10 mcg (400 unit) tablet,chewable 1 tab PO BID glucosamine [id number] 1 EACH tablet 1 ea PO BID amitriptyline 100 MG tablet 100 mg PO QHS nystatin 1 APPLIC bottle 1 applic TOPICAL TID PRN (Reason: skin irritation) Rx Instructions: to affected areas loratadine 10 mg tablet 10 mg PO DAILY PRN (Reason: allergies) pramipexole 1.5 MG tablet 1.5 mg PO QHS AZO D-Mannose 500 mg capsule 2,000 mg PO QHS Primary Care Provider: Jovani Mcconnell Referrals: Jovani Mcconnell MD [Primary Care Provider] - 3-5 Days Activity Restrictions/Additional Instructions: Continue current medications. She has a UTI we were told she is currently on antibiotics continue that till finished. Follow-up with her primary care provider or your medical billing clerk to ensure she is improving. Disposition Disposition: Home, Self Care
--- NOTE | 2023-11-13 12:59 | EKG12_ITS ---
Test Reason : ABD PAIN Blood Pressure : / mmHG Vent. Rate : 126 BPM Atrial Rate : 126 BPM P-R Int : 144 ms QRS Dur : 080 ms QT Int : 294 ms P-R-T Axes : 018 056 066 degrees QTc Int : 425 ms Sinus tachycardia Nonspecific ST abnormality Abnormal ECG Confirmed by LUISANA PALENCIA, MARLYS ([id number]), book or script editor KATIE WILLS ([id number]) on 11/14/2023 9:13:01 AM Referred By: Confirmed By:MARLYS LIEBERMAN MD
[2023-11-13 13:25] LABS: Absolute Lymphocyte Count 0.58 X10^3/uL (0.83-4.51); Absolute Neutrophil Count 12.8 X10^3/uL (2.0-7.7); Basophil# 0.06 X10^3/uL; Basophil% 0.4 % (0-1); Eosinophil# 0.02 X10^3/uL; Eosinophils% 0.1 % (0-5); Hematocrit 47.3 % (37-47); Hemoglobin 14.3 g/dL (12.0-15.0); Lymphocyte # 0.58 X10^3/ul (0.83-4.51); Lymphocyte % 4.1 % (19-41); Mean Corp Hgb Conc 30.2 g/dL (32-36); Mean Corpuscular Hgb 30.8 pg (27.0-32.0); Mean Corpuscular Volume 101.9 fL (81-99); Mean Platelet Vol. 8.9 fl (6.2-12.0); Monocyte# 0.48 X10^3/uL; Monocyte% 3.4 % (0-10); NRBC Flagged by Analyzer 0 % (0-5); Neutrophil # 12.79 X10^3/uL (2.7-7.7); Neutrophil % 91.4 % (47-70); POSITIVE DIFFERENTIAL YES; Platelet Count 307 K/mm3 (150-450); RBC Distribution Width CV 14.5 % (11.6-14.6); RBC Distribution Width SD 54.5 fl (35.1-43.9); Red Blood Count 4.64 M/mm3 (4.2-5.4)
[2023-11-13 13:26] LABS: Differential Indicated SCAN CRITERIA MET
[2023-11-13] MEDS: Ondansetron 4 MG/2 ML Vial IV (13:26)
[2023-11-13 13:42] LABS: International Normalized Ratio 1.4; Prothrombin Time (Protime)PT. 17.3 SECONDS (11.7-14.9)
--- NOTE | 2023-11-13 13:42 | RAD_ITS ---
INDICATION: cough EXAMINATION/TECHNIQUE: X-RAY - XR Chest 1 View COMPARISON: Prior study dated: 07/29/2023 FINDINGS: LINES/DEVICES: None. LUNGS: Hypoventilatory changes. No focal infiltrate is seen. No evidence of pleural effusions. MEDIASTINUM AND CARDIOVASCULAR STRUCTURES: Cardiac silhouette not enlarged. Central airways and mediastinal contour are unremarkable. BONES AND SOFT TISSUES: Unchanged osseous structures. RAD/Chest 1 View (Portable) IMPRESSION: No radiographic evidence of acute cardiopulmonary disease. Electronically Signed: Cuong Duncan MD at 13:56 EST ,
[2023-11-13 13:46] LABS: ALB/GLOB Ratio 0.7 RATIO (0.9-2.4); AST(SGOT) 19 U/L (15-37); Alanine Aminotransfer ALT/SGPT 21 U/L (13-56); Albumin, Serum 3.2 g/dL (3.2-5.0); Alkaline Phosphatase 113 U/L (45-117); Anion Gap 5 (5-15); BUN 33 mg/dL (7-18); BUN/Creat Ratio 29.7 RATIO (10-20); Calcium,Total 10.6 mg/dL (8.5-10.1); Chloride 106 mmol/L (98-107); Creatinine, Serum 1.11 mg/dL (0.55-1.02); EST Glomerular Filtration Rate 50 mL/min (>60); Est Glom Filt Rate - Afr Amer 60 mL/min (>60); Globulin 4.9 g/dL (2.2-4.2); Glucose 139 mg/dL (74-106); Lipase 27 U/L (13-75); Potassium 3.9 mmol/L (3.5-5.1); Protein, Total 8.1 g/dL (6.4-8.2); Sodium Level 137 mmol/L (136-145)
[2023-11-13 13:52] LABS: Color, Urine Amber (Yellow); Glucose, Dipstick Normal (Normal); Ketone-Dipstick 5 mg/dl (Negative); Leukocyte Esterase-Dipstick 25 /ul (Negative); Mucous, Urine 0 SEEN /hpf (<or=2+); Nitrite-Dipstick Positive (Negative); Occult Blood-Urine 250 /ul (Negative); Protein-Dipstick 100 mg/dl (Negative); Specific Gravity, Urine 1.025 (1.002-1.030); Urine Clarity Sl. Cloudy (Clear); Urine Urobilinogen 1 mg/dl (Normal)
[2023-11-13 13:59] LABS: Urine Bilirubin Dipstick 3 mg/dL (Negative)
[2023-11-13 14:04] LABS: Bacteria 1+ /hpf (None Seen); Red Blood Cells-Urine 25-50 SEEN /hpf (0-5); Squamous Epithelial Cells - UA 0-5 SEEN /hpf (5-10); White Blood Cells 0-5 SEEN /hpf (0-5)
[2023-11-13 15:36] LABS: Troponin-I HS 8 pg/mL (3.0-54.0)
[2023-11-13] MEDS: 0.9% Normal Saline (1000mL) 1,000 ML 999 ML IV (16:34)
--- NOTE | 2023-11-13 16:45 | PCM.HP.STD ---
HPI - General General Date of Admission: 11/13/23 Date of Service: 11/13/23 Chief Complaint: Lower abdominal pain, cramping, ? dark appearing emesis/material after burping. HPI Narrative The patient is an 83 y/o F w/ PMHx: Hypothyroidism, CKD stage III unclear subtype, Morbid obesity, Hx VTE (DT, PE) with factor V Leiden s/p IVCF placement, HTN, HLD, CHAI on BIPAP, RLS, Chronic Hypoxic Respiratory Failure secondary to COPD complicated by Pulmonary Fibrosis, Ulcerative colitis, Chronic thrombocytopenia, Chronic anemia, Anxiety and Depression who presents to the [facility] ED on 11/13/23 with history of onset abdominal discomfort starting on day of presentation ongoing for several hours noted to be intermittent and crampy in nature primarily in bilateral lower, right greater than left with associated nausea as well as reported questionable coffee-ground emesis with no recent fevers or chills with bowel movement the day prior unclear if it was melanotic or black in appearance with no history of previous GI bleed with history of recent UTI diagnosis noted to be on an antibiotic for approximately 1 week but unclear specific type in addition prompting initial ED evaluation. [facility] reports that patient has not had dark appearing stools. Review of recent microbiology notable for 11/03/2023 urine culture with positive Klebsiella pneumo resistant to ampicillin but sensitive to everything else workup in the ED included T98.7, heart rate 129--> most recent repeat 122, BP 104/64-->most recent repeat 98/55, respiratory rate 20, 92% on 4 L nasal cannula, CBC with WBC 14, hemoglobin 14.3, MCV 101.9, platelet 307 with left shift and lymphopenia, coags with PT 17.3, INR 1.4, CMP with BUN/plan 33/1.11, glucose 139, calcium mildly elevated 10.6, hepatic profile not marked appearing, lipase 27, urinalysis noted to be cloudy, specific gravity 1.025, protein 100, ketone 5, occult blood 250, nitrate positive, 3 urine bilirubin, 1 urine urobilinogen, 25 leukocyte Estrace with 25-50 urine RBCs, urine WC 0-5 with 1+ urine bacteria, type and screen initiated per ED physician, chest x-ray with no acute cardiopulmonary findings, SARS COVID/flu/RSV PCR is negative, CT abdomen pelvis with IV contrast with nonspecific fluid-filled small bowel loops without any evidence of bowel obstruction with no focal acute inflammatory process, bilateral nonobstructing renal stones with the largest in the left renal pelvis, fecal retention concerning for constipation otherwise no acute intra-abdominal finding. In the ED patient administered Zofran 4 mg IV x 1. In the ED patient ministered Protonix 80 mg IV bolus, Zofran 4 mg IV x 1, 1 L normal saline as well as Rocephin 1 g IV x 1. PFSH Medical History Carpal tunnel syndrome Chronic anticoagulation CKD (chronic kidney disease) COPD (chronic obstructive pulmonary disease) Essential hypertension Fracture of right radius History of deep venous thrombosis History of pulmonary embolus (PE) (2008) History of ulcerative colitis Hyperlipidemia Hypotension Morbid obesity CHAI treated with BiPAP Presence of IVC filter Pulmonary fibrosis Restless leg syndrome RLS (restless legs syndrome) Secondary pulmonary arterial hypertension Thrombocytopenia Home Medications rosuvastatin 10 mg tablet 10 mg PO QHS CHOLESTEROL LOWERING 05/13/15 [History Last Taken 11/12/23] sulfasalazine 500 mg tablet 1,000 mg PO BID COLITIS 10/23/15 [History Last Taken 07/28/23] amitriptyline 100 mg tablet 100 mg PO QHS DEPRESSION 01/30/17 [History Last Taken 11/12/23] glucosamine HCl 500 mg-msm 83 mg-chondroitin 400 mg tablet 1 ea PO BID SUPPLEMENT 01/30/17 [History Last Taken 11/13/23] pramipexole 1.5 mg tablet 1.5 mg PO QHS restless legs 01/12/20 [History Last Taken 11/12/23] levothyroxine 175 mcg tablet 175 mcg PO DAILY 01/25/21 [History Last Taken 11/13/23] duloxetine 60 mg capsule,delayed release 60 mg PO Q OTHER DAY depression 07/27/22 [History Last Taken 11/13/23] mirabegron 50 mg tablet,extended release 24 hr (Myrbetriq) 50 mg PO DAILY 07/27/22 [History Last Taken 11/13/23] metoprolol succinate 25 mg tablet,extended release 24 hr 25 mg PO DAILY htn 04/10/23 [History Last Taken 11/13/23] melatonin 3 mg capsule 3 mg PO HS PRN insomnia 09/12/23 [History Last Taken 11/12/23] tramadol 50 mg tablet 50 mg PO BID 09/12/23 [History Last Taken 11/13/23] acetaminophen 325 mg tablet 650 mg PO TID 11/13/23 [History Last Taken 11/13/23] albuterol sulfate 2.5 mg/3 mL (0.083 %) solution for nebulization 2.5 mg inhalation Q6H PRN shortness of breath 11/13/23 [History Last Taken Unknown] apixaban 5 mg tablet (Eliquis) 5 mg PO BID 11/13/23 [History Last Taken 11/12/23] ciprofloxacin HCl 500 mg tablet 500 mg PO BID 11/13/23 [History Last Taken 11/13/23] d-mannose 500 mg capsule (AZO D-Mannose) 2,000 mg PO QHS UTI PREVENTION 11/13/23 [History Last Taken 11/12/23] fluticasone 100 mcg-salmeterol 50 mcg/dose blistr powdr for inhalation (Advair Diskus) 1 inh inhalation BID 11/13/23 [History Last Taken 11/13/23] ondansetron HCl 4 mg tablet 4 mg PO Q6H PRN nausea 11/13/23 [History Last Taken 11/12/23] Allergy/AdvReac Type Severity Reaction Status Date / Time erythromycin base Allergy Mild unknown Verified 09/19/23 14:50 aspirin [From Robaxisal] Allergy Unknown Verified 09/19/23 14:50 digoxin [From Lanoxin] Allergy Unknown Verified 09/19/23 14:50 etodolac [From Lodine] Allergy Unknown Verified 09/19/23 14:50 ibuprofen [From Motrin] Allergy Unknown Verified 09/19/23 14:50 meclizine HCl [From Antivert] Allergy Unknown Verified 09/19/23 14:50 meclofenamate sodium Allergy Unknown Verified 09/19/23 14:50 [From Meclomen] methocarbamol Allergy Unknown Verified 09/19/23 14:50 [From Robaxisal] nabumetone [From Relafen] Allergy Unknown Verified 09/19/23 14:50 naproxen Allergy Unknown Verified 09/19/23 14:50 sulfamethoxazole Allergy Unknown Verified 09/19/23 14:50 [From Bactrim] trimethoprim [From Bactrim] Allergy Unknown Verified 09/19/23 14:50 hydrocodone AdvReac Severe HALLUCINATI Verified 09/19/23 14:50 ONS Penicillins AdvReac Intermediate Diarrhea Verified 09/19/23 14:50 Family History Father Prostate cancer Brother Heart disease Mother Parkinsons disease Surgical History H/O colonoscopy H/O right heart catheterization (04/11/19) History of appendectomy History of basal cell carcinoma excision History of carpal tunnel surgery of right wrist History of cholecystectomy History of total left knee replacement (12/19/07) S/P appendectomy S/P cholecystectomy S/P Mohs surgery for basal cell carcinoma Status post total left knee replacement Social History household members: none Smoking Status: Former smoker how long ago did patient quit smokin years ago alcohol intake: never substance use type: does not use caffeine: Yes Type: coffee Number of servings: 1 ROS ROS Narrative Admission Review of Systems: CONSTITUTIONAL: No weight loss, fever, chills, + weakness or fatigue. HEENT: Eyes: No visual loss, blurred vision, double vision or yellow sclerae. Ears, Nose, Throat: No hearing loss, sneezing, congestion, runny nose or sore throat. SKIN: No rash or itching, lesions, wounds. CARDIOVASCULAR: + Chronic BL LE edema. No chest pain, chest pressure or chest discomfort, palpitations, orthopnea, syncopal events. RESPIRATORY: + Chronic dyspnea with exertion. No marked cough or increased sputum, wheezing, hemoptysis. GASTROINTESTINAL: + Lower abdominal cramping/constipation, ? dark appearing gastric contents after burping. No anorexia, nausea, vomiting or diarrhea, melena, BRBPR. GENITOURINARY: + Recent UTI, still ongoing urinary hesitancy, urine fould smelling, mild dysuria. No retention. NEUROLOGICAL: No headache, dizziness, syncope, paralysis, ataxia, numbness or tingling in the extremities, focal weakness, change in bowel or bladder control, seizure. MUSCULOSKELETAL: + muscle, back pain, joint pain or stiffness. HEMATOLOGIC: + anemia, easy bleeding or bruising. LYMPHATICS: No enlarged nodes. No history of splenectomy. PSYCHIATRIC: + history of depression or anxiety. ENDOCRINOLOGIC: No reports of sweating, cold or heat intolerance. No polyuria or polydipsia. ALLERGIES: + history of rhinitis. Vital Signs Vital Signs Vital Signs: 11/13/23 12:19 11/13/23 12:28 11/13/23 15:35 Temperature 98.8 F 98.7 F Temperature Source Oral Temporal Pulse Rate 71 129 H 122 H Respiratory Rate 20 H 20 H 20 H Blood Pressure 114/75 104/64 98/55 L Blood Pressure Mean 88 77 69 Pulse Ox 85 92 90 Oxygen Delivery Method Nasal Cannula Nasal Cannula Nasal Cannula Oxygen Flow Rate (L/min) 4 4 4 Physical Exam Narrative Physical Examination: General: Awake, alert, oriented x 3 and cooperative, seated upright in the ED bed, mildly fatigued otherwise no acute distress. Skin: Normal color, normal turgor, no icterus, no cyanosis except for occasional staged ecchymoses as well as chronic venous stasis skin changes to bilateral lower extremities. HEENT: AT/NC, EOMI, PERRLA, mildly dry MM, no carotid bruits or JVD noted. Lungs: Distant, mildly diminished, greater bases, appropriate effort, no rales, ronchi or wheezing. Heart: Tachycardic with regular rhythm; no gallop, rub audible. Abdomen: Soft, morbidly obese, no obvious tenderness to palpation or any rebound or guarding, no discomfort even in the lower quadrants, mildly hyperactive BS, difficult to assess distention and HSM given habitus. Extremities: No cyanosis or clubbing, see skin, pedal to mid girard chronic edema not markedly pitting. Neurological: Patient awake, alert, oriented as noted, cognitive function intact; pupils equally reactive to light and accommodation, cranial nerves II-XII grossly normal, moving all 4 extremities, no focal deficits, strength moderately to severely global decrease secondary to acute complaints. Psychiatric: Affect appears fatigued, no acute evidence of depressive or anxiety feelings but does have underlying history. Results Lab / Micro Data 11/13/23 13:12 11/13/23 13:12 Labs: Laboratory Results - last 24 hr 11/13/23 13:12: WBC 14.0 H, RBC 4.64, Hgb 14.3, Hct 47.3 H, MCV 101.9 H, MCH 30.8, MCHC 30.2 L, RDW Std Deviation 54.5 H, RDW Coeff of Sina 14.5, Plt Count 307, MPV 8.9, Immature Gran % (Auto) 0.600, Neut % (Auto) 91.4 H, Lymph % (Auto) 4.1 L, [place] % (Auto) 3.4, Eos % (Auto) 0.1, Baso % (Auto) 0.4, Absolute Neuts (auto) 12.8 H, Absolute Lymphs (auto) 0.58 L, Nucleated RBC % 0, Differential Comment COMMENT, PT 17.3 H, INR 1.4, Sodium 137, Potassium 3.9, Chloride 106, Carbon Dioxide 26.0, Anion Gap 5, BUN 33 H, Creatinine 1.11 H, Est GFR (MDRD) Af Amer 60, Est GFR (MDRD) Non-Af 50 L, BUN/Creatinine Ratio 29.7 H, Glucose 139 H, Calcium 10.6 H, Total Bilirubin 0.80, AST 19, ALT 21, Alkaline Phosphatase 113, Troponin I High Sens 8, Total Protein 8.1, Albumin 3.2, Globulin 4.9 H, Albumin/Globulin Ratio 0.7 L, Lipase 27, Blood Type A POSITIVE, Antibody Screen NEGATIVE 11/13/23 13:40: Urine Color [place], Urine Clarity Sl. Cloudy, Urine pH 5.0, Ur Specific [place] 1.025, Urine Protein 100 H, Urine Glucose (UA) Normal, Urine Ketones 5 H, Urine Occult Blood 250 H, Urine Nitrite Positive H, Urine Bilirubin 3 H, Urine Urobilinogen 1 H, Ur Leukocyte Esterase 25 H, Urine RBC 25-50 SEEN, Urine WBC 0-5 SEEN, Ur Squamous Epith Cells 0-5 SEEN, Urine Bacteria 1+, Urine Mucus 0 SEEN Micro: Microbiology 11/13/23 13:22 Mucosa - Nasopharyngeal SARS-CoV-2, Influenza & RSV (PCR) - Final Rhythm Strip Rhythm Strip: Sinus Tach Rate: 126 Ectopy: None Imagaing Radiology Impression Abdomen/Pelvis CT 11/13/23 12:50 IMPRESSION: 1. Nonspecific fluid-filled small bowel loops without evidence of bowel obstruction. 2. No focal acute inflammatory process. 3. Bilateral nonobstructing renal stones, the largest is in the left renal pelvis. 4. Fecal retention concerning for constipation. Electronically Signed: Cuong Duncan MD at 15:48 EST , Chest X-Ray 11/13/23 13:42 IMPRESSION: No radiographic evidence of acute cardiopulmonary disease. Electronically Signed: Cuong Duncan MD at 13:56 EST , Assessment & Plan Assessment/Plan (1) UTI (urinary tract infection): PLAN: Plan The patient is an 83 y/o F w/ PMHx: Hypothyroidism, CKD stage III unclear subtype, Morbid obesity, Hx VTE (DT, PE) with factor V Leiden s/p IVCF placement, HTN, HLD, CHAI on BIPAP, RLS, Chronic Hypoxic Respiratory Failure secondary to COPD complicated by Pulmonary Fibrosis, Ulcerative colitis, Chronic thrombocytopenia, Chronic anemia, Anxiety and Depression who presents to the [facility] ED on 11/13/23 with history of onset abdominal discomfort starting on day of presentation ongoing for several hours noted to be intermittent and crampy in nature primarily in bilateral lower, right greater than left with associated nausea as well as reported questionable coffee-ground emesis with no recent fevers or chills with bowel movement the day prior unclear if it was melanotic or black in appearance with no history of previous GI bleed with history of recent UTI diagnosis noted to be on an antibiotic for approximately 1 week but unclear specific type in addition prompting initial ED evaluation. #1. Recent Acute Complicated Urinary Tract Infection, concern for persistent infection, ? failed outpatient abx therapy with mild tachycardia and mild hypotension concurrently: Unclear exact antibiotic treatment, clarifying from facility, UA upon ED evaluation still with positive nitrite although not marked leukocyte Estrace nor marked WBCs but still 1+ bacteria, recent 11/03/2023 urine culture with positive Klebsiella as noted resistant to ampicillin only at that time. Given tachycardia and hypotension with unclear exact etiology but concern for possible infection will admit to PCU, maintain on fall precautions, will continue judicious hydration, will monitor I/Os, continue IV Rocephin w/ transition as able pending sensitivities and speciation given repeat culture. Also as noted will continue evaluation of hypercalcemia and assure no GI bleed component is certainly could be causing vital sign changes as well. Procalcitonin requested. #2. Chronic macrocytic anemia with questionable dark emesis, concern GI bleed component: Admission hemoglobin 14.3, MCV 101.9, prior baseline 11-12, most recent hemoglobin prior to this 07/30/2023 hemoglobin 11.3, given concerns for possible dark appearing emesis guaiac has been requested, will maintain on clears only and continue to trend H&H's, maintain on IV PPI. If there is any drop in hemoglobin or the guaiac is positive we will immediately hold her eliquis and request GI consultation however if guaiac is negative and hemoglobin stable will broaden diet and d/c cycling H+H as well as transition back to oral home PPI. #3. Hypercalcemia, unclear specific etiology: Admission CMP with calcium 10.6 and last noted prior to this 07/30/2023 8.5 mg/dL which appears primarily baseline 8-9 previous to this, patient does appear dehydrated however, will continue to hydrate, will plan to repeat CMP in a.m., will obtain ionized calcium, TSH/FT4, PTH, phos, 25-(OH)D and 1,25-(OH)2D levels also in the interim given notable change. #4. Lower abdominal cramping, discomfort, possibly related with UTI versus constipation: CT abdomen and pelvis with no acute finding but patient does appear to have constipation which certainly could be contributing to her lower abdominal discomfort as well as possible persistent UTI, will have bowel regimen available. #5. Chronic thrombocytopenia: Unclear exact etiology, admission platelets 307, previous baseline primarily 130-170s, however has vacillated, most recent prior 07/30/2023 platelet 140, continue to trend. #6. Chronic Kidney Disease Stage III, unclear subtype: Admission BUN/Cr 33/1.11, baseline renal function since 09/2022 primarily 0.8-1.1, repeat BMP in AM. #7. Hx VTE (DT, PE) with factor V Leiden: s/p IVCF placement, patient previously been on Coumadin now transition to Eliquis therapy, will continue pending evaluations as noted above with hold if concern verified for GI bleed component. #8. 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 #9. Ulcerative colitis: We will continue patient home sulfasalazine chronic home regimen, not on any chronic steroids of note, encourage continued outpatient follow-up with gastroenterology. #10. Anxiety and depression: We will continue nightly amitriptyline as well as home duloxetine regimen. #11. Hypothyroidism: We will continue patient home levothyroxine regimen. #12. Hypertension: BP low however given tachycardia will attempt to continue metoprolol as BP allows, PRN hydralazine. #13. Hyperlipidemia: We will continue patient home statin therapy. #14. Restless leg syndrome: We will continue patient home pramipexole regimen. #15. Morbid Obesity: Weight loss and lifestyle changes encouraged. #16. Former tobacco use: Encourage continued tobacco cessation. #17. CHAI: BIPAP nightly. #18. DVT prophylaxis: If there is any drop in hemoglobin or the guaiac is positive we will immediately hold her eliquis, for now will continue as noted given stable Hgb, no overt evidence of GI bleed. #19. CODE status: Patient does not have HCPOA or living will in place however she notes her decision maker would be Umm her daughter. Discussed CODE status at length including difference between FULL code, DNR-CCA and DNR-CC status. Following discussions about the differences in these status, decision to maintain Full Code status which is on her facility paperwork but did discuss her prognosis and she is interested in possible DNR-CCA, no intubation but recommended she review this with Umm as had been discussed during a prior admission. Noted to her given her history if she had a cardiac arrest the likelihood of a good functional outcome would be low. Advanced Care Planning Face to Face Time: 16 minutes. Charges/Coding Visit Charges Inpatient E&M: 28841 Init Hosp L3 Procedures Hospitalists Procedures: 77055 Advncd Care Plan 30 Min
[2023-11-13] MEDS: Ceftriaxone 1 GM/50 ML BAG IV (16:54)
[2023-11-13] MEDS: Pantoprazole Sodium 80 MG in 0.9% Normal Saline (50mL Bag) 15 ML 420 MG IV BOLUS (17:49)
[2023-11-13 18:33] LABS: Procalcitonin 0.76 ng/mL (0.00-0.09)
--- OUTSIDE RECORDS SUMMARY | 2023-11-13 18:45 | XMS RPT_ITS | CCD ---
Author Name Unknown Address [address] [place] [address] Organization [facility] Care Team Providers Care Germ Drier Name Role Phone eJnny Nugent Unavailable [phone] Letha Kaur Unavailable Vale JENSEN, Taisha Ornelas Unavailable Unavailable Kayla Valdovinos Unavailable Kayla Valdovinos Unavailable Allergies Allergy Classification Reported Allergen(s) Allergy Type Date of Onset Reaction(s) Facility (5 sources) erythromycin Drug Allergy 05-23-2012 [facility] Work Phone: (5 sources) methocarbamol Drug Allergy 05-23-2012 [facility] Work Phone: (5 sources) nabumetone Drug Allergy 05-23-2012 [facility] Work Phone: Medications Completed/Discontinued Medications Medication Drug Class(es) Dates Sig (Normalized) Sig (Original) acetaminophen 325 mg oral tablet (5 sources) Start: 06-20-2017 take 2 tablets by mouth every six hours as needed TYLENOL 325 MG TABS 2 tablets by mouth every 6 hours as needed ACETAMINOPHEN [id number] Taisha Collazo RN 200 actuat albuterol 0.09 mg/actuat metered dose inhaler (10 sources) beta2-Adrenergic Agonist Start: 05-23-2012 End: 06-20-2017 take 2 puff(s) by inhalation every four to six hours as needed VENTOLIN HFA 108 (90 Base) MCG/ACT AERS inhale 2 puffs every 4-6 hours as needed - 90mcg/inh ALBUTEROL SULFATE [id number] Taisha A Vale RN Problems Active Problems [...] 08:27-0500 BMI (Body Mass Index) 63.5 kg/m2 [facility] Work Phone: 10-05-2017 08:27-0500 Weight 167.83 kg [facility] Work Phone: 06-21-2017 13:27-0400 Body height 162.56 cm Kayla Valdovinos Work Phone: [facility] Work Phone: 06-21-2017 13:27-0400 Body mass index (BMI) [Ratio] 55.46 kg/m2 Kayla Valdovinos Work Phone: [facility] Work Phone: 06-21-2017 13:27-0400 Body weight 146.57 kg Kayla Valdovinos Work Phone: [facility] Work Phone: 06-21-2017 13:27-0400 Diastolic blood pressure 60 mm[Hg] Kayla Valdovinos Work Phone: [facility] Work Phone: 06-21-2017 13:27-0400 Heart rate 80 /min Kayla Valdovinos Work Phone: [facility] Work Phone: 06-21-2017 13:27-0400 Respiratory rate 20 /min Kayla Valdovinos Work Phone: [facility] Work Phone: 06-21-2017 13:27-0400 Systolic blood pressure 126 mm[Hg] Kayla Valdovinos Work Phone: [facility] Work Phone: 06-21-2017 13:27-0400 Weight 146.[address] [facility] Work Phone: 12-19-2016 12:51-0500 Body mass index (BMI) [Ratio] 55.06 kg/m2 Taisha Collazo RN [facility] Work Phone: 12-19-2016 12:51-0500 Body surface area Derived from formula 2.39 m2 Taisha Collazo RN [facility] Work Phone: 12-19-2016 12:51-0500 Body weight 145.51 kg Taisha Collazo RN [facility] Work Phone: 12-19-2016 12:51-0500 Diastolic blood pressure 72 mm[Hg] Taisha Collazo RN [facility] Work Phone: 12-19-2016 12:51-0500 Heart rate 75 /min Taisha Collazo RN [facility] Work Phone: 12-19-2016 12:51-0500 Respiratory rate 20 /min Taisha Collazo RN [facility] Work Phone: 06-20-2016 13:45-0400 Systolic blood pressure 120 mm[Hg] Taisha Collazo RN [facility] Work Phone: 06-15-2015 14:07-0400 Body height 162.56 cm Taisha Collazo RN [facility] Work Phone: Procedures Date [...] Maynor Roldan MD Start: 12-16-2014 End: 12-16-2014 [employer] Consuelo Antonio PA-C Work Phone: Start: 12-16-2014 [...] Taisha Collazo RN Start: 12-16-2014 End: 12-16-2014 [employer] Consuelo Antonio PA-C Work Phone: Start: 12-16-2014 [...] Maynor Roldan MD Start: 05-27-2013 End: 05-27-2013 [employer] Maynor Roldan MD Start: 05-27-2013 End: 11-10-2014 [...] Phone: Start: 10-05-2017 End: 10-05-2017 Appointment Appointment [facility] Work Phone: Start: 06-21-2017 End: 06-21-2017 Follow Up Appt 1 year Follow Up Appt 1 year [facility] Work Phone: Start: 06-21-2017 End: 06-21-2017 MMM MMM [facility] Work Phone: Start: 06-21-2017 End: 06-21-2017 Patient encounter procedure Appointment [facility] Work Phone: Start: 06-21-2017 End: 06-21-2017 Follow Up Appt 1 year Follow Up Appt 1 year [facility] Work Phone: Start: 06-21-2017 End: 06-21-2017 MMM MMM [facility] Work Phone: Start: 12-19-2016 End: 12-19-2016 [facility] Work Phone: Start: 12-19-2016 End: 12-19-2016 Follow Up Appt 6 months Follow Up Appt 6 months [facility] Work Phone: Start: 12-19-2016 End: 12-19-2016 [facility] Work Phone: Start: 12-19-2016 End: 12-19-2016 Follow Up Appt 6 months Follow Up Appt 6 months [facility] Work Phone: Start: 06-20-2016 End: 06-20-2016 Follow Up Appt 6 months Follow Up Appt 6 months [facility] Work Phone: Start: 06-20-2016 End: 06-20-2016 MMM MMM [facility] Work Phone: Start: 06-20-2016 End: 06-20-2016 Follow Up Appt 6 months Follow Up Appt 6 months [facility] Work Phone: Start: 06-20-2016 End: 06-20-2016 MMM MMM [facility] Work Phone: Start: 06-15-2015 End: 12-13-2016 [facility] Work Phone: Start: 06-15-2015 End: 12-13-2016 Follow Up Appt 1 year Follow Up Appt [address] [facility] Work Phone: Start: 06-15-2015 End: 12-13-2016 [facility] Work Phone: Start: 06-15-2015 End: 12-13-2016 Follow Up Appt 1 year Follow Up Appt 1 year [facility] Work Phone: Start: 12-16-2014 End: 12-16-2014 [facility] Work Phone: Start: 12-16-2014 End: 12-16-2014 Ecg routine ecg w/least 12 lds w/i&r EKG (In office) [facility] Work Phone: Start: 12-16-2014 End: 12-16-2014 Follow Up Appt 6 months Follow Up Appt 6 months [facility] Work Phone: Start: 12-16-2014 End: 12-16-2014 [facility] Work Phone: Start: 12-16-2014 End: 12-16-2014 Ecg routine ecg w/least 12 lds w/i&r EKG (In office) [facility] Work Phone: Start: 12-16-2014 End: 12-16-2014 Follow Up Appt 6 months Follow Up Appt 6 months [facility] Work Phone: Start: 05-22-2014 End: 05-22-2014 Follow Up Appt 6 months Follow Up Appt 6 months [facility] Work Phone: Start: 05-22-2014 End: 05-22-2014 MMM MMM [facility] Work Phone: Start: 05-22-2014 End: 05-22-2014 Follow Up Appt 6 months Follow Up Appt 6 months [facility] Work Phone: Start: 05-22-2014 End: 05-22-2014 MMM MMM [facility] Work Phone: Start: 05-27-2013 End: 05-27-2013 [facility] Work Phone: Start: 05-27-2013 End: 05-27-2013 Echocardiography Echocardiogram (complete) [facility] Work Phone: Start: 05-27-2013 End: 05-27-2013 Follow Up Appt 1 year Follow Up Appt 1 year [facility] Work Phone: Start: 05-27-2013 End: 05-27-2013 [employer] [facility] Work Phone: Start: 05-27-2013 End: 05-27-2013 Echocardiography Echocardiogram (complete) [facility] Work Phone: Start: 05-27-2013 End: 05-27-2013 Follow Up Appt 1 year Follow Up Appt 1 year [facility] Work Phone: Start: 11-20-2012 End: 11-20-2012 Follow Up Appt 6 months Follow Up Appt 6 months [facility] Work Phone: Start: 11-20-2012 End: 11-20-2012 Follow Up Appt 6 months Follow Up Appt 6 months [facility] Work Phone: Start: 05-24-2012 End: 05-24-2012 Follow Up Appt 6 months Follow Up Appt 6 months [facility] Work Phone: Start: 05-24-2012 End: 05-24-2012 Follow Up Appt 6 months Follow Up Appt 6 months [facility] Work Phone: Fall risk [...] BE BASED ON THE PRIMARY CLINICAL RECORDS. [employer] [facility]. provides no warranty or guarantee of the accuracy or completeness of information in this document.
[2023-11-13 21:09] LABS: Hematocrit 41.6 % (37-47); Hemoglobin 12.9 g/dL (12.0-15.0)
[2023-11-13] MEDS: 0.9% Normal Saline (1000mL) 1,000 ML 100 ML IV (23:07)
[2023-11-13] MEDS: Metoprolol(XL)Succ 25 MG Tablet PO (23:07)
[2023-11-13] MEDS: Atorvastatin Calcium 20 MG Tablet PO (23:13)
[2023-11-13] MEDS: sulfaSALAzine 500 MG Tablet 1000 MG PO (23:13)
[2023-11-13] MEDS: Amitriptyline 100 MG Tablet PO (23:14)
[2023-11-13] MEDS: Pramipexole Di-HCl 0.5 MG Tablet 1.5 MG PO (23:14)
[2023-11-13] MEDS: Pantoprazole Sodium 40 MG in 0.9% Normal Saline (100mL MB+) 100 ML 330 MG IV (23:19)
[2023-11-13] MEDS: traMADol 50 MG Tablet PO (23:19)
[2023-11-13] MEDS: Polyethylene Glycol 3350 17 GM PACKET PO (23:19)
[2023-11-14] VITALS (14 sets, daily range): BP systolic 67–119; BP diastolic 49–81; PULSE 90–118; RESP 12–35; TEMP 36.6–37.3; O2SAT 93–99; BMI 45.7
--- NOTE | 2023-11-14 00:32 | EKG12_ITS ---
Test Reason : TACHYCARDIA Blood Pressure : / mmHG Vent. Rate : 117 BPM Atrial Rate : 000 BPM P-R Int : 000 ms QRS Dur : 080 ms QT Int : 420 ms P-R-T Axes : 000 024 020 degrees QTc Int : 585 ms Critical Test Result: Long QTc SINUS TACHYCARDIA Prolonged QT Abnormal ECG When compared with ECG of 13-NOV-2023 13:12, MANUAL COMPARISON REQUIRED, DATA IS UNCONFIRMED Confirmed by LUISANA PALENCIA, MARLYS ([id number]), senior technical editor KATIE WILLS ([id number]) on 11/14/2023 9:00:49 AM Referred By: Confirmed By:MARLYS LIEBERMAN MD
[2023-11-14 00:38] LABS: Hematocrit 38.8 % (37-47); Hemoglobin 11.9 g/dL (12.0-15.0)
[2023-11-14] MEDS: dilTIAZem 25 MG/5 ML Vial 20 MG IV BOLUS (00:49)
[2023-11-14] MEDS: 0.9% Saline Lock 10 ML Syringe IV ×2 (00:49→11:53)
[2023-11-14 01:16] LABS: Allen Test Positive; Base Excess -7 mmol/L (-2 to +2); Bicarbonate 18.6 mmol/L (22-26); Blood Gas Specimen Type ART; Mode Not entered; O2 Delivery Device HFNC; PO2 73 mmHG (75-100); SITE L Radial; SO2 94 % (95-99); Total Carbon Dioxide 20 mmol/L; pCO2 32.9 mmHg (35-45); pH 7.36 (7.35-7.45)
--- NOTE | 2023-11-14 01:23 | PCM.HOSP.N ---
Hospitalist Note This hospitalist was informed that patient was not requiring up to 13 L of oxygen by high flow nasal cannula. Patient is on 5 L of oxygen at home on account of COPD. She was also tachycardic with a heart rate fluctuating in the 110s to 130s. Admission EKG had showed sinus tachycardia with a ventricular rate of 126 and QT C of 425 ms. Repeat EKG done at time of my notification of her above-mentioned symptoms showed markedly elevated QTc of 585 ms in sinus tachycardia. Patient on albuterol every 2 as needed which can cause tachycardia. This was discontinued. Her medications were reviewed and amitriptyline and duloxetine held for now as they can cause QT prolongation. Patient is on p.o. metoprolol XL 25 mg daily. She did receive this medication last night. Will increase to 50 mg daily. Potassium is 3.9. Will check magnesium. Her last 2D echo in the records is from 12/18/2022 and showed normal left ventricle with normal left ventricular systolic function and mildly dilated aortic root. Patient given a dose of IV Cardizem 20 mg x 1. If tachycardia persists, will consult cardiology. IV fluids also discontinued. Of note she does have a history of SVT. Check TSH. Prochlorperazine also discontinued. Stool for occult blood also positive. Gastroenterology consulted. Elidamaris on hold. On IV pantoprazole
[2023-11-14 02:26] LABS: Absolute Lymphocyte Count 0.87 X10^3/uL (0.83-4.51); Absolute Neutrophil Count 16.8 X10^3/uL (2.0-7.7); Basophil# 0.07 X10^3/uL; Basophil% 0.4 % (0-1); Hematocrit 38.3 % (37-47); Hemoglobin 11.5 g/dL (12.0-15.0); Lymphocyte # 0.87 X10^3/ul (0.83-4.51); Lymphocyte % 4.5 % (19-41); Mean Corpuscular Hgb 30.4 pg (27.0-32.0); Mean Corpuscular Volume 101.3 fL (81-99); Mean Platelet Vol. 9.4 fl (6.2-12.0); Monocyte# 1.59 X10^3/uL; Monocyte% 8.2 % (0-10); NRBC Flagged by Analyzer 0 % (0-5); Neutrophil # 16.76 X10^3/uL (2.7-7.7); Neutrophil % 86.3 % (47-70); POSITIVE DIFFERENTIAL YES; Platelet Count 242 K/mm3 (150-450); RBC Distribution Width CV 14.6 % (11.6-14.6); RBC Distribution Width SD 54.4 fl (35.1-43.9); Red Blood Count 3.78 M/mm3 (4.2-5.4); White Blood Count 19.4 K/mm3 (4.4-11.0)
[2023-11-14 02:27] LABS: Ionized Calcium 4.78 mg/dL (4.36-5.20)
[2023-11-14 02:38] LABS: Magnesium 1.5 mg/dL (1.6-2.6)
[2023-11-14 02:56] LABS: Differential Indicated SCAN CRITERIA MET
[2023-11-14 02:57] LABS: International Normalized Ratio 2.1; Prothrombin Time (Protime)PT. 23.8 SECONDS (11.7-14.9)
[2023-11-14 02:58] LABS: Partial Thromboplast Time 63.1 Seconds (24.1-36.2)
[2023-11-14] MEDS: 0.9% Normal Saline (1000mL) 1,000 ML 75 ML IV (03:00)
[2023-11-14 03:05] LABS: BNP,B-Type NATRIURETIC PEPTIDE 142.6 pg/mL (0-100)
[2023-11-14] MEDS: Magnesium Sulfate 4gm/100mL 4 GM/100 ML IV.SOLN. IV (03:12)
[2023-11-14 03:18] LABS: Differential Comment SCANNED
[2023-11-14 03:42] LABS: ALB/GLOB Ratio 0.7 RATIO (0.9-2.4); AST(SGOT) 20 U/L (15-37); Alanine Aminotransfer ALT/SGPT 19 U/L (13-56); Albumin, Serum 2.6 g/dL (3.2-5.0); Alkaline Phosphatase 89 U/L (45-117); Anion Gap 10 (5-15); BUN 66 mg/dL (7-18); BUN/Creat Ratio 37.3 RATIO (10-20); Calcium,Total 8.3 mg/dL (8.5-10.1); Chloride 111 mmol/L (98-107); Creatinine, Serum 1.77 mg/dL (0.55-1.02); EST Glomerular Filtration Rate 29 mL/min (>60); Est Glom Filt Rate - Afr Amer 35 mL/min (>60); Estimated Creatinine Clearance 26.51 ml/min; Globulin 3.8 g/dL (2.2-4.2); Glucose 126 mg/dL (74-106); Phosphorus 3.6 mg/dL (2.5-4.9); Potassium 3.4 mmol/L (3.5-5.1); Protein, Total 6.4 g/dL (6.4-8.2); Sodium Level 140 mmol/L (136-145); T4 Free Direct 1.18 ng/dL (0.76-1.46)
[2023-11-14 06:24] LABS: Absolute Lymphocyte Count 1.09 X10^3/uL (0.83-4.51); Absolute Neutrophil Count 15.1 X10^3/uL (2.0-7.7); Basophil# 0.05 X10^3/uL; Basophil% 0.3 % (0-1); Hematocrit 36.3 % (37-47); Hemoglobin 11.1 g/dL (12.0-15.0); Lymphocyte # 1.09 X10^3/ul (0.83-4.51); Lymphocyte % 6.2 % (19-41); Mean Corp Hgb Conc 30.6 g/dL (32-36); Mean Corpuscular Hgb 30.8 pg (27.0-32.0); Mean Corpuscular Volume 100.8 fL (81-99); Mean Platelet Vol. 9.4 fl (6.2-12.0); Monocyte# 1.16 X10^3/uL; Monocyte% 6.6 % (0-10); NRBC Flagged by Analyzer 0 % (0-5); Neutrophil # 15.09 X10^3/uL (2.7-7.7); Neutrophil % 86.2 % (47-70); Platelet Count 218 K/mm3 (150-450); RBC Distribution Width CV 14.6 % (11.6-14.6); RBC Distribution Width SD 54.4 fl (35.1-43.9); White Blood Count 17.5 K/mm3 (4.4-11.0)
[2023-11-14] MEDS: Levothyroxine 175 MCG Tablet PO (06:45)
[2023-11-14] MEDS: Budesonide Respules 0.5 MG/2 ML AMPUL.NEB. INHALATION ×2 (07:10→19:21)
--- NOTE | 2023-11-14 07:33 | EKG12_ITS ---
Test Reason : AM EKG Blood Pressure : / mmHG Vent. Rate : 102 BPM Atrial Rate : 102 BPM P-R Int : 162 ms QRS Dur : 082 ms QT Int : 332 ms P-R-T Axes : 015 003 015 degrees QTc Int : 432 ms Sinus tachycardia Low voltage QRS Borderline ECG When compared with ECG of 14-NOV-2023 00:52, Previous ECG has undetermined rhythm, needs review Confirmed by LUISANA PALENCIA, MARLYS ([id number]), development editor PARK VASQUEZ ([id number]) on 11/16/2023 7:23:19 AM Referred By: SANTY Confirmed By:MARLYS LIEBERMAN MD
--- NOTE | 2023-11-14 08:02 | CPS ---
PT currently on Bipap. SMI and pep held at this time.
--- NOTE | 2023-11-14 08:28 | PCM.PN.HOSP ---
Reason for Visit Reason for Visit: Diagnoses Urinary tract infection, site not specified (11/13/23) Objective Data Objective Data Vital Signs: Vital Signs Temp Pulse Resp BP Pulse Ox O2 Del Method O2 Flow Rate 99 F 107 H 24 H 83/55 L 99 Bi-pap 13 11/14/23 06:47 11/14/23 07:10 11/14/23 07:10 11/14/23 06:47 11/14/23 07:10 11/14/23 06:47 11/13/23 23:06 FiO2 70 11/14/23 07:10 Oxygen Flow Rate (L/min) 13 Oxygen Delivery Method Bi-pap Weight: 234 lb 5.622 oz Body Mass Index (BMI) 45.7 Intake & Output: Intake and Output for Last 24 Hours 11/12/23 11/13/23 11/14/23 23:59 23:59 23:59 Intake Total 1195 / 1639 752.33 / 752.33 Output Total 0 / 0 Balance 1195 / 1639 752.33 / 752.33 Lab / Micro Data 11/14/23 06:11 11/14/23 02:11 Labs: Laboratory Results - last 24 hr 11/13/23 13:12: WBC 14.0 H, RBC 4.64, Hgb 14.3, Hct 47.3 H, MCV 101.9 H, MCH 30.8, MCHC 30.2 L, RDW Std Deviation 54.5 H, RDW Coeff of Sina 14.5, Plt Count 307, MPV 8.9, Immature Gran % (Auto) 0.600, Neut % (Auto) 91.4 H, Lymph % (Auto) 4.1 L, [place] % (Auto) 3.4, Eos % (Auto) 0.1, Baso % (Auto) 0.4, Absolute Neuts (auto) 12.8 H, Absolute Lymphs (auto) 0.58 L, Nucleated RBC % 0, Differential Comment COMMENT, PT 17.3 H, INR 1.4, Sodium 137, Potassium 3.9, Chloride 106, Carbon Dioxide 26.0, Anion Gap 5, BUN 33 H, Creatinine 1.11 H, Est GFR (MDRD) Af Amer 60, Est GFR (MDRD) Non-Af 50 L, BUN/Creatinine Ratio 29.7 H, Glucose 139 H, Calcium 10.6 H, Total Bilirubin 0.80, AST 19, ALT 21, Alkaline Phosphatase 113, Troponin I High Sens 8, Total Protein 8.1, Albumin 3.2, Globulin 4.9 H, Albumin/Globulin Ratio 0.7 L, Lipase 27, Blood Type A POSITIVE, Antibody Screen NEGATIVE 11/13/23 13:40: Urine Color [place], Urine Clarity Sl. Cloudy, Urine pH 5.0, Ur Specific [place] 1.025, Urine Protein 100 H, Urine Glucose (UA) Normal, Urine Ketones 5 H, Urine Occult Blood 250 H, Urine Nitrite Positive H, Urine Bilirubin 3 H, Urine Urobilinogen 1 H, Ur Leukocyte Esterase 25 H, Urine RBC 25-50 SEEN, Urine WBC 0-5 SEEN, Ur Squamous Epith Cells 0-5 SEEN, Urine Bacteria 1+, Urine Mucus 0 SEEN 11/13/23 17:18: Procalcitonin 0.76 H 11/13/23 20:50: Hgb 12.9, Hct 41.6 11/13/23 23:52: Hgb 11.9 L, Hct 38.8 11/14/23 02:11: WBC 19.4 H, RBC 3.78 L, Hgb 11.5 L, Hct 38.3, MCV 101.3 H, MCH 30.4, MCHC 30.0 L, RDW Std Deviation 54.4 H, RDW Coeff of Sina 14.6, Plt Count 242, MPV 9.4, Immature Gran % (Auto) 0.600, Neut % (Auto) 86.3 H, Lymph % (Auto) 4.5 L, [place] % (Auto) 8.2, Eos % (Auto) 0.0, Baso % (Auto) 0.4, Absolute Neuts (auto) 16.8 H, Absolute Lymphs (auto) 0.87, Nucleated RBC % 0, Differential Comment SCANNED, Diff Path Review March, PT 23.8 H, INR 2.1, APTT 63.1 H, Sodium 140, Potassium 3.4 L, Chloride 111 H, Carbon Dioxide 19.0 L, Anion Gap 10, BUN 66 H, Creatinine 1.77 H, Estim Creat Clear Calc 26.51, Est GFR (MDRD) Af Amer 35 L, Est GFR (MDRD) Non-Af 29 L, BUN/Creatinine Ratio 37.3 H, Glucose 126 H, Calcium 8.3 L, Phosphorus 3.6, Magnesium 1.5 L, Total Bilirubin 0.80, AST 20, ALT 19, Alkaline Phosphatase 89, B-Natriuretic Peptide 142.6 H, Total Protein 6.4, Albumin 2.6 L, Globulin 3.8, Albumin/Globulin Ratio 0.7 L, TSH 2.50, Free T4 1.18 11/14/23 02:23: Ionized Calcium 4.78 11/14/23 06:11: WBC 17.5 H, RBC 3.60 L, Hgb 11.1 L, Hct 36.3 L, MCV 100.8 H, MCH 30.8, MCHC 30.6 L, RDW Std Deviation 54.4 H, RDW Coeff of Sina 14.6, Plt Count 218, MPV 9.4, Immature Gran % (Auto) 0.700, Neut % (Auto) 86.2 H, Lymph % (Auto) 6.2 L, [place] % (Auto) 6.6, Eos % (Auto) 0.0, Baso % (Auto) 0.3, Absolute Neuts (auto) 15.1 H, Absolute Lymphs (auto) 1.09, Nucleated RBC % 0 Micro: Microbiology 11/14/23 01:42 Stool Stool Occult Blood (DARREL) - Final Occult Blood Positive 11/13/23 13:22 Mucosa - Nasopharyngeal SARS-CoV-2, Influenza & RSV (PCR) - Final ABG Data ABG results: ABG 11/14/23 01:11 Specimen Type ART Sample Site L Radial pH 7.36 Bicarbonate Actual 18.6 L Total CO2 20 Base Excess -7 L O2 Saturation 94 L O2 % 13.0 ABG pCO2 32.9 L ABG pO2 73 L Theodore Test Positive O2 Delivery Device HFNC Vent Mode Not entered Radiography Diagnostic Testing: Radiology Impression Abdomen/Pelvis CT 11/13/23 12:50 IMPRESSION: 1. Nonspecific fluid-filled small bowel loops without evidence of bowel obstruction. 2. No focal acute inflammatory process. 3. Bilateral nonobstructing renal stones, the largest is in the left renal pelvis. 4. Fecal retention concerning for constipation. Electronically Signed: Cuong Duncan MD at 15:48 EST , Chest X-Ray 11/13/23 13:42 IMPRESSION: No radiographic evidence of acute cardiopulmonary disease. Electronically Signed: Cuong Duncan MD at 13:56 EST , Rhythm Strip Rhythm Strip: Sinus Tach Rate: 126 Ectopy: None Physical Exam Narrative Seen and examined. Assessment & Plan Assessment/Plan (1) UTI (urinary tract infection): PLAN: Plan The patient is an 83 y/o F came to the ED for abdominal pain, cramping in nature in the right lower quadrant mild severity associated with nausea but no diarrhea melena or hematochezia. Patient did not had dysuria frequency, hematuria or urgency. Patient is being admitted in PCU. 1. Narrow complex tachycardia most likely SVT/accelerated junctional with hypotension: Last night patient oxygen requirement suddenly increased from baseline 5 L of oxygen to 30 L. Patient also sinus tachycardic fluctuating 110s to 130s. Admission EKG had showed sinus tachycardia with a ventricular rate of 126 and QT C of 425 ms. Repeat EKG done done last night showed markedly elevated QTc of 585 ms, sinus tachycardia. Albuterol was discontinued. Amitriptyline and duloxetine were held because of prolonged QT interval. Metoprolol XL increased from 25 mg to 50 mg daily. 1 dose IV Cardizem 20 mg given. Serum potassium 3.4, mild hypokalemia, hypomagnesia magnesium 1.5, phosphorus normal. Ionized calcium 4.78 normal. Correct electrolytes. Patient blood pressure was low 67/49 and 1 L of Ringer lactate ordered. Probably due to Cardizem. Blood pressure is recorded 119/60. Heart rate 104 per med. On high flow oxygen 13. Monitor EKG daily for prolonged QTc interval. Limited echo ordered. 2. Recent acute complicated UTI with concern for persistent infection: CT abdomen check patient has bilateral nonobstructing renal stones, largest in left renal pelvis. Patient on IV ceftriaxone. UA shows positive nitrite 1+ bacteria. Previous urine culture from 11/03/2023 is Klebsiella [id number] all sensitive but resistant to ampicillin. 3. concern of GI bleed: Stool for occult blood positive. Patient baseline hemoglobin around 12 g. Admission hemoglobin 12.9/47.3% but dropped to 11.1. Since patient was hemoconcentrated therefore IV fluid of normal saline with KCl ordered. GI is consulted. On PPI. #3. Hypercalcemia, unclear specific etiology: Admission CMP with calcium 10.6 and last noted prior to this 07/30/2023 8.5 mg/dL. Ionized calcium is normal 4.78. Serum phosphorus 3.6. #4. Lower abdominal cramping, discomfort, possibly related with UTI versus constipation: CT abdomen and pelvis with no acute finding but patient does appear to have constipation which certainly could be contributing to her lower abdominal discomfort as well as possible persistent UTI, will have bowel regimen available. #5. Chronic thrombocytopenia: Unclear exact etiology, admission platelets 307, previous baseline primarily 130-170s, however has vacillated, most recent prior 07/30/2023 platelet 140, continue to trend. #6. ASHANTI on chronic Kidney Disease Stage III, unclear subtype: Admission BUN/Cr 33/1.11, baseline renal function since 09/2022 primarily 0.8-1.1, repeat creatinine went up 1.77, BUN 66. Patient clinically looks dehydrated and was also hypotensive therefore 1 L IV fluid Ringer lactate given as mentioned above. #7. Hx VTE (DT, PE) with factor V Leiden: s/p IVCF placement, patient previously been on Coumadin now transition to Eliquis therapy, will continue pending evaluations as noted above with hold if concern verified for GI bleed component. #8. 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 Ulcerative colitis: continue patient home sulfasalazine chronic home regimen, not on any chronic steroids of note, encourage continued outpatient follow-up with gastroenterology. #10. Anxiety and depression: We will continue nightly amitriptyline as well as home duloxetine regimen. #11. Hypothyroidism: We will continue patient home levothyroxine regimen. #12. Hypertension: Patient was hypotensive in the morning. Hold antihypertensive medications. #13. Hyperlipidemia: l continue patient home statin therapy. #14. Restless leg syndrome: continue patient home pramipexole regimen. #15. Morbid Obesity: Weight loss and lifestyle changes encouraged. #16. Former tobacco use: Encourage continued tobacco cessation. #17. CHAI: BIPAP nightly. #18. DVT prophylaxis: If there is any drop in hemoglobin or the guaiac is positive we will immediately hold her eliquis, for now will continue as noted given stable Hgb, no overt evidence of GI bleed. #19. CODE status: Patient does not have HCPOA or living will in place however she notes her decision maker would be Umm her daughter. Discussed CODE status at length including difference between FULL code, DNR-CCA and DNR-CC status. Following discussions about the differences in these status, decision to maintain Full Code status which is on her facility paperwork but did discuss her prognosis and she is interested in possible DNR-CCA, no intubation but recommended she review this with Umm as had been discussed during a prior admission. Charges/Coding Addendum Addendum: Total time of the visit including total time spent in counseling or coordination of care, (more than 50% of the total time, spent in obtaining medical information from nurses and other ancillary care providers,explaining to the patient about labs, imaging, diagnosis and management of active complex medical conditions), management of hypotension, narrow complex tachycardia, ASHANTI, review of labs and imaging is 40 minutes. Visit Charges Inpatient E&M: 19618 Subs Hosp L3
[2023-11-14] MEDS: Lactated Ringers 1,000 ML 999 ML IV (10:17)
[2023-11-14] MEDS: KCL 20MEQ in 0.45%NS 20 MEQ/1,000 ML IV.SOLN. 500 MEQ IV (11:53)
[2023-11-14] MEDS: Pantoprazole Sodium 40 MG in 0.9% Normal Saline (100mL MB+) 100 ML 330 MG IV ×2 (12:02→22:00)
--- NOTE | 2023-11-14 12:03 | CASEMGMT ---
Patient is from [facility]. SW checked with patient and her plan is to return to [facility] at discharge. Patient declined a list of other facilities. Plan: d/c back to [facility] when medically ready. Sunni MAYO
[2023-11-14] MEDS: Ceftriaxone 1 GM/50 ML BAG IV (12:44)
--- NOTE | 2023-11-14 12:48 | PCM.OP.PRO ---
Procedure Report Date of Procedure: 11/14/23 Assessment & Plan Assessment/Plan (1) Acute upper GI bleed: (2) Dehydration: Procedures Radiology Radiology Access Procedures: PICC Procedure Time Out Time Out Informed consent given: Yes Consent signed: Yes Time out checklist: patient, procedure, site marked/identified, positioning of patient, supplies available and allergies confirmed Time out verified: Yes Time out date: 11/14/23 Time out time: 10:22 PICC Line Consent Screening tool completed:: Yes Consent obtained:: Yes Consent given by (patient or responsible democrat):: patienet Line successful (if no, document why in comments):: Yes Insertion Reason for Insertion: Poor Venous Access Date of Insertion: 11/14/23 Ok to use: Yes Type of PICC inserted: Dual Power PICC PICC Lot #: [id number] PICC Reference #: [id number] Microintroducer Used: Yes (in kit) Ultrasound/Equipment Used: Probe Cover Kit Trimmed Length (cm): 48 Insertion Length (cm): 48 Exposed Length (cm): 0 Tip Placement: Caval Atrial Junction Placement Confirmation: 3CG Insertion Vein: Left Brachial Insertion Attempts: 1 Local Anesthesia Used: Lidocaine 1% (in kit) Dressing Applied: Statlock and Tegaderm CHG Arm Measurement above site (in cm): 31 Patient Tolerated Procedure: Well Threading Difficulties: No Comments Comment: Patient identity was verified with two patient identifiers. Informed consent was obtained and time-out was completed. Hands were sanitized. The patient was positioned supine with left arm at 90 degrees. The patient's upper arm vasculature was assessed using ultrasound, and the left brachial vein was externally marked. An external measurement was obtained of 48 cm. External leads were applied to the patient's right upper chest and laterally and inferior of the umbilicus on the mid axillary line. Cap, mask, and prep gloves were donned. The underdrape was placed under the patient's arm. The site was prepped with chlorhexidine, and tourniquet was loosely applied. Prep gloves were discarded, and hands were sanitized. The sterile kit was opened with additional supplies dropped in. Sterile gown and gloves were donned, and the patient was draped. The sterile kit was assembled with all needle, introducer, connector, and catheter flushed with sterile normal saline. The marked site of insertion was anesthetized with 1% lidocaine. Patient tolerated well. The left brachial vein was then accessed using ultrasound guidance and guidewire was inserted to safety edita. The tourniquet was released. The access needle was removed while securing the guidewire in place. The site was again anesthetized with 1% lidocaine, prior to insertion of introducer sheath and dilator. Patient tolerated well. The catheter was trimmed to a length of 48 cm. Using 3C guidance, the catheter was then inserted through the introducer sheath, slowly. There was no resistance on insertion. Maximal p-wave, without deflection, was obtained at an insertion length of 48 cm, leaving 0 cm external. The introducer sheath was retracted and peeled away, incrementally, while keeping the catheter secured. The stylet was removed. A flushed needleless connector was attached to each lumen. Blood return was verified and each lumen was flushed with sterile normal saline in a pulsatile fashion. Total sterile flushes used for the insertion was 6 10 ml syringes, including 2 from the kit. Finally, the insertion site was cleaned with chlorhexidine, and the catheter was secured using a StatLock. The site was covered with a Tegaderm CHG Dressing. Baseline arm circumference was obtained at the insertion site and measured 31 cm. The patient was provided with a patient education handout on PICC line care and verbalized understanding of infection prevention, heavy lifting restriction, maintaining mobility, and watching for any signs of infection. Primary nurse and charge nurse are aware that PICC line is ready for use.
--- NOTE | 2023-11-14 13:00 | CASEMGMT ---
Discharge Planning Updates sent to [facility] via [facility]. Taisha Harris, Discharge Planning Asst.
--- NOTE | 2023-11-14 15:06 | ECHOL_ITS ---
Reason For Study: Hypotension Procedure This was a limited 2D transthoracic echocardiogram. Exam performed portable in patient room. Left Ventricle Normal LV size. Left ventricular systolic function is normal. The estimated ejection fraction is 60 %. No regional wall motion abnormalities noted. Right Ventricle Normal RV size. Normal systolic function. Great Vessels Normal aortic root. Pericardium/Pleural No pericardial effusion. MMode/2D Measurements & Calculations LVIDd: 4.3 cm IVSd: 1.1 cm LVIDs: 2.7 cm LVPWd: 1.1 cm FS: 37.9 % ECHO/Echo, Limited Study Interpretation Summary Normal LV size. Left ventricular systolic function is normal. The estimated ejection fraction is 60 %. The study was technically limited. Ordering Physician: Duc Barraza Referring Physician: Jovani Mcconnell Performed By: Khadra Scales, RDCS, RVT
[2023-11-14] MEDS: Potassium Chloride Oral Tablet 20 MEQ 40 MEQ PO (15:34)
[2023-11-14] MEDS: Acetaminophen 325 MG Tablet 650 MG PO (15:35)
[2023-11-14 15:51] LABS: Anion Gap 6 (5-15); BUN 67 mg/dL (7-18); BUN/Creat Ratio 46.5 RATIO (10-20); Calcium,Total 8.6 mg/dL (8.5-10.1); Chloride 112 mmol/L (98-107); Creatinine, Serum 1.44 mg/dL (0.55-1.02); EST Glomerular Filtration Rate 37 mL/min (>60); Est Glom Filt Rate - Afr Amer 45 mL/min (>60); Estimated Creatinine Clearance 32.63 ml/min; Glucose 110 mg/dL (74-106); Magnesium 2.6 mg/dL (1.6-2.6); Potassium 3.9 mmol/L (3.5-5.1); Sodium Level 139 mmol/L (136-145)
[2023-11-14 17:11] LABS: PTHIN 55.8 pg/mL (18.4-80.1)
[2023-11-14] MEDS: Menthol/Lanolin/Calamine/Znox 113 GM Tube 1 APPLIC TOPICAL ×2 (17:55→22:00)
[2023-11-14] MEDS: Ipratropium 0.5 MG/2.5 ML SOLUTION INHALATION (19:20)
[2023-11-14] MEDS: traMADol 50 MG Tablet PO (22:00)
[2023-11-14] MEDS: Atorvastatin Calcium 20 MG Tablet PO (22:00)
[2023-11-14] MEDS: Pramipexole Di-HCl 0.5 MG Tablet 1.5 MG PO (22:00)
[2023-11-14] MEDS: sulfaSALAzine 500 MG Tablet 1000 MG PO (22:00)
[2023-11-15] VITALS (28 sets, daily range): BP systolic 64–114; BP diastolic 49–89; PULSE 100–129; RESP 12–28; TEMP 36.4–37.2; O2SAT 86–96; BMI 45.6
[2023-11-15] MEDS: Levothyroxine 175 MCG Tablet PO (05:50)
--- NOTE | 2023-11-15 05:55 | EKG12_ITS ---
Test Reason : Blood Pressure : / mmHG Vent. Rate : 107 BPM Atrial Rate : 108 BPM P-R Int : 168 ms QRS Dur : 084 ms QT Int : 298 ms P-R-T Axes : 013 013 035 degrees QTc Int : 397 ms Sinus tachycardia with occasional Premature ventricular complexes Low voltage QRS Nonspecific T wave abnormality Abnormal ECG When compared with ECG of 14-NOV-2023 00:52, Previous ECG has undetermined rhythm, needs review Nonspecific T wave abnormality, worse in Anterolateral leads Confirmed by LUISANA PALENCIA, MARLYS ([id number]), fashion editor PARK VASQUEZ ([id number]) on 11/19/2023 1:58:42 PM Referred By: SANTY Confirmed By:MARLYS LIEBERMAN MD
[2023-11-15 06:34] LABS: Absolute Lymphocyte Count 0.96 X10^3/uL (0.83-4.51); Absolute Neutrophil Count 14.2 X10^3/uL (2.0-7.7); Basophil# 0.05 X10^3/uL; Basophil% 0.3 % (0-1); Eosinophil# 0.03 X10^3/uL; Eosinophils% 0.2 % (0-5); Hematocrit 29.6 % (37-47); Hemoglobin 9.2 g/dL (12.0-15.0); Lymphocyte # 0.96 X10^3/ul (0.83-4.51); Lymphocyte % 5.9 % (19-41); Mean Corp Hgb Conc 31.1 g/dL (32-36); Mean Corpuscular Hgb 31.2 pg (27.0-32.0); Mean Corpuscular Volume 100.3 fL (81-99); Mean Platelet Vol. 9.3 fl (6.2-12.0); Monocyte# 0.87 X10^3/uL; Monocyte% 5.4 % (0-10); NRBC Flagged by Analyzer 0 % (0-5); Neutrophil # 14.23 X10^3/uL (2.7-7.7); Neutrophil % 87.6 % (47-70); Platelet Count 174 K/mm3 (150-450); RBC Distribution Width CV 15.1 % (11.6-14.6); RBC Distribution Width SD 55.8 fl (35.1-43.9); Red Blood Count 2.95 M/mm3 (4.2-5.4); White Blood Count 16.2 K/mm3 (4.4-11.0)
[2023-11-15 06:43] LABS: Prothrombin Time (Protime)PT. 22.5 SECONDS (11.7-14.9)
[2023-11-15 06:45] LABS: Partial Thromboplast Time 56.3 Seconds (24.1-36.2)
[2023-11-15 07:08] LABS: AST(SGOT) 29 U/L (15-37); Alanine Aminotransfer ALT/SGPT 19 U/L (13-56); Albumin, Serum 2.2 g/dL (3.2-5.0); Alkaline Phosphatase 84 U/L (45-117); Anion Gap 4 (5-15); BUN 57 mg/dL (7-18); Bilirubin, Direct 0.32 mg/dL (0.00-0.30); Calcium,Total 8.5 mg/dL (8.5-10.1); Chloride 118 mmol/L (98-107); Creatinine, Serum 1.14 mg/dL (0.55-1.02); EST Glomerular Filtration Rate 48 mL/min (>60); Est Glom Filt Rate - Afr Amer 59 mL/min (>60); Estimated Creatinine Clearance 41.17 ml/min; Globulin 3.3 g/dL (2.2-4.2); Glucose 95 mg/dL (74-106); Potassium 4.7 mmol/L (3.5-5.1); Protein, Total 5.5 g/dL (6.4-8.2); Sodium Level 144 mmol/L (136-145)
[2023-11-15] MEDS: Ipratropium 0.5 MG/2.5 ML SOLUTION INHALATION ×3 (07:25→18:53)
[2023-11-15] MEDS: Budesonide Respules 0.5 MG/2 ML AMPUL.NEB. INHALATION ×2 (07:26→18:53)
--- NOTE | 2023-11-15 08:07 | PCM.PN.HOSP ---
Reason for Visit Reason for Visit: Diagnoses Dehydration (11/13/23) Gastrointestinal hemorrhage, unspecified (11/13/23) Urinary tract infection, site not specified (11/13/23) Subjective Subjective Patient blood pressure is low. Does not have hypotensive symptoms. Objective Data Objective Data Vital Signs: Vital Signs Temp Pulse Resp BP Pulse Ox O2 Del Method O2 Flow Rate 98 F 102 H 20 H 81/61 L 92 High Flow 13 11/14/23 23:15 11/15/23 08:02 11/15/23 07:27 11/15/23 08:02 11/15/23 07:27 11/15/23 07:27 11/15/23 07:27 FiO2 70 11/15/23 02:12 Oxygen Flow Rate (L/min) 13 Oxygen Delivery Method High Flow Weight: 233 lb 14.567 oz Body Mass Index (BMI) 45.6 Intake & Output: Intake and Output for Last 24 Hours 11/13/23 11/14/23 11/15/23 23:59 23:59 23:59 Intake Total 1195 / 1639 3792.33 / 3792.33 0 / 0 Output Total 500 / 1200 700 / 700 Balance 1195 / 1639 3292.33 / 2592.33 -700 / -700 Lab / Micro Data 11/15/23 06:00 11/15/23 06:00 Labs: Laboratory Results - last 24 hr 11/14/23 02:11: PTH Intact 55.8 11/14/23 06:11: Vitamin D 25-Hydroxy 52.0 11/14/23 13:28: Sodium Cancelled, Potassium Cancelled, Chloride Cancelled, Carbon Dioxide Cancelled, Anion Gap Cancelled, BUN Cancelled, Creatinine Cancelled, Estim Creat Clear Calc Cancelled, Est GFR (MDRD) Af Amer Cancelled, Est GFR (MDRD) Non-Af Cancelled, BUN/Creatinine Ratio Cancelled, Glucose Cancelled, Calcium Cancelled, Magnesium Cancelled 11/14/23 15:10: Sodium 139, Potassium 3.9, Chloride 112 H, Carbon Dioxide 21.0, Anion Gap 6, BUN 67 H, Creatinine 1.44 H, Estim Creat Clear Calc 32.63, Est GFR (MDRD) Af Amer 45 L, Est GFR (MDRD) Non-Af 37 L, BUN/Creatinine Ratio 46.5 H, Glucose 110 H, Calcium 8.6, Magnesium 2.6 11/15/23 06:00: WBC 16.2 H, RBC 2.95 L, Hgb 9.2 L, Hct 29.6 L, MCV 100.3 H, MCH 31.2, MCHC 31.1 L, RDW Std Deviation 55.8 H, RDW Coeff of Sina 15.1 H, Plt Count 174, MPV 9.3, Immature Gran % (Auto) 0.600, Neut % (Auto) 87.6 H, Lymph % (Auto) 5.9 L, [place] % (Auto) 5.4, Eos % (Auto) 0.2, Baso % (Auto) 0.3, Absolute Neuts (auto) 14.2 H, Absolute Lymphs (auto) 0.96, Nucleated RBC % 0, PT 22.5 H, INR 2.0, APTT 56.3 H, Sodium 144, Potassium 4.7, Chloride 118 H, Carbon Dioxide 22.0, Anion Gap 4 L, BUN 57 H, Creatinine 1.14 H, Estim Creat Clear Calc 41.17, Est GFR (MDRD) Af Amer 59 L, Est GFR (MDRD) Non-Af 48 L, BUN/Creatinine Ratio 50.0 H, Glucose 95, Calcium 8.5, Total Bilirubin 0.60, Direct Bilirubin 0.32 H, AST 29, ALT 19, Alkaline Phosphatase 84, Total Protein 5.5 L, Albumin 2.2 L, Globulin 3.3 Micro: Microbiology 11/14/23 01:42 Stool Stool Occult Blood (DARREL) - Final Occult Blood Positive 11/13/23 13:22 Mucosa - Nasopharyngeal SARS-CoV-2, Influenza & RSV (PCR) - Final Radiography Diagnostic Testing: Radiology Impression Echocardiogram 11/14/23 15:06 Interpretation Summary Normal LV size. Left ventricular systolic function is normal. The estimated ejection fraction is 60 %. The study was technically limited. Ordering Physician: Duc Barraza Referring Physician: Jovani Mcconnell Performed By: Khadra Scales, RDCS, RVT Rhythm Strip Rhythm Strip: Sinus Tach Rate: 126 Ectopy: None Physical Exam Narrative Seen and examined. Overnight events discussed with the patient and noticed.Patient was hypotensive yesterday but blood pressure responded with IV fluid Ringer lactate bolus. Last night patient sinus tachycardia, increased oxygen demand 30 L. Awake oriented x 3. In the morning report also patient was hypotensive blood pressure in 64/53 x 2, heart rate 105, sinus tachycardia requiring 13 L of oxygen. General: Alert, Oriented x3, Cooperative, morbid obesity BMI 45.7 kg/m? HEENT: Atraumatic, PERRLA, EOMI, Normocephalic Oral: No Gingival or Mucosal Lesions/ Ulcerations Neck: Supple, No JVD, Negative Carotid Bruits Lungs: Air entry diminished in bilateral lung bases. Bilateral coarse crepitations Cardiovascular: Sinus tachycardia, Normal S1, Normal S2, No murmurs Abdomen: Bowel Sounds Present, Soft, Non Tender, Non-Distended : No dysuria. No renal angle tenderness. No suprapubic tenderness. Extremities: Mild, nonpitting pedal edema, fatty tissue, capillary Refill Less than 3 Seconds Skin: No rashes, No breakdown Musculoskeletal: No Tenderness to Palpation of Joints or Extremities ROM restricted. Degenerative arthritis. Neurological: Cranial nerves II-XII grossly intact, DTR 2+/4. No acute focal neurological deficit. Psych/Mental Status: Normal Affect, Appropriate. Assessment & Plan Assessment/Plan (1) UTI (urinary tract infection): QUALIFIERS: Urinary tract infection type: site unspecified PLAN: Plan The patient is an 83 y/o F came to the ED for abdominal pain, cramping in nature in the right lower quadrant mild severity associated with nausea but no diarrhea melena or hematochezia. Patient did not had dysuria frequency, hematuria or urgency. Patient is being admitted in PCU. 1. Narrow complex tachycardia most likely SVT/accelerated junctional with hypotension: Last night patient oxygen requirement suddenly increased from baseline 5 L of oxygen to 30 L. Patient also sinus tachycardic fluctuating 110s to 130s. Admission EKG had showed sinus tachycardia with a ventricular rate of 126 and QT C of 425 ms. Repeat EKG done done last night showed markedly elevated QTc of 585 ms, sinus tachycardia. Albuterol was discontinued. Amitriptyline and duloxetine were held because of prolonged QT interval. Metoprolol XL increased from 25 mg to 50 mg daily. 1 dose IV Cardizem 20 mg given. Serum potassium 3.4, mild hypokalemia, hypomagnesia magnesium 1.5, phosphorus normal. Ionized calcium 4.78 normal. Correct electrolytes. Patient blood pressure was low 67/49 and 1 L of Ringer lactate ordered. Probably due to Cardizem. Blood pressure is recorded 119/60. Heart rate 104 per med. On high flow oxygen 13. Monitor EKG daily for prolonged QTc interval. 11/15 patient was found hypotensive last night and in the morning systolic 66. Similarly she was yesterday but responded to IV fluid Ringer lactate. Patient is mild short of breath but denies chest congestion, pressure tightness or wheezing. Mild tachypnea and sinus tachycardia. Patient not on antihypertensive medication. 1 L IV fluid Ringer lactate, ABG and BiPAP ordered. Cushion Maker consulted and transferred to ICU. High flow oxygen. Patient has leukocytosis. Blood cultures x 2 ordered. Limited 2D echo was done. EF 60% no regional wall motion abnormality normal LV size. 2. Recent acute complicated UTI with concern for persistent infection: CT abdomen check patient has bilateral nonobstructing renal stones, largest in left renal pelvis. Patient on IV ceftriaxone. UA shows positive nitrite 1+ bacteria. Previous urine culture from 11/03/2023 is Klebsiella [id number] all sensitive but resistant to ampicillin. 3. concern of GI bleed: Stool for occult blood positive. Patient baseline hemoglobin around 12 g. Admission hemoglobin 12.9/47.3% but dropped to 11.1. Since patient was hemoconcentrated therefore IV fluid of normal saline with KCl ordered. GI is consulted. On PPI. 11/15: Patient supposed to have EGD but canceled because of hypotension. #3. Hypercalcemia, unclear specific etiology: Admission CMP with calcium 10.6 and last noted prior to this 07/30/2023 8.5 mg/dL. Ionized calcium is normal 4.78. Serum phosphorus 3.6. #4. Lower abdominal cramping, discomfort, possibly related with UTI versus constipation: CT abdomen and pelvis with no acute finding but patient does appear to have constipation which certainly could be contributing to her lower abdominal discomfort as well as possible persistent UTI, will have bowel regimen available. #5. Chronic thrombocytopenia: Unclear exact etiology, admission platelets 307, previous baseline primarily 130-170s, however has vacillated, most recent prior 07/30/2023 platelet 140, continue to trend. #6. ASHANTI on chronic Kidney Disease Stage III, unclear subtype: Admission BUN/Cr 33/1.11, baseline renal function since 09/2022 primarily 0.8-1.1, repeat creatinine went up 1.77, BUN 66. Patient clinically looks dehydrated and was also hypotensive therefore 1 L IV fluid Ringer lactate given as mentioned above. 11/15: BUNs/creatinine better 57/1.14.CT abdomen shows bilateral nonobstructive renal stones largest in the left renal pelvis. #7. Hx VTE (DT, PE) with factor V Leiden: s/p IVCF placement, patient previously been on Coumadin now transition to Eliquis therapy, will continue pending evaluations as noted above with hold if concern verified for GI bleed component. #8. 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 Ulcerative colitis: continue patient home sulfasalazine chronic home regimen, not on any chronic steroids of note, encourage continued outpatient follow-up with gastroenterology. #10. Anxiety and depression: We will continue nightly amitriptyline as well as home duloxetine regimen. #11. Hypothyroidism: We will continue patient home levothyroxine regimen. #12. Hypertension: Patient was hypotensive in the morning. Hold antihypertensive medications. #13. Hyperlipidemia: l continue patient home statin therapy. #14. Restless leg syndrome: continue patient home pramipexole regimen. #15. Morbid Obesity: Weight loss and lifestyle changes encouraged. #16. Former tobacco use: Encourage continued tobacco cessation. #17. CHAI: BIPAP nightly. #18. DVT prophylaxis: If there is any drop in hemoglobin or the guaiac is positive we will immediately hold her eliquis, for now will continue as noted given stable Hgb, no overt evidence of GI bleed. #19. CODE status: Clinical update given to the patient's daughter Mrs. Grayson. Still wants to be full code. Discussed about the hypotension, GI bleed and ASHANTI and narrow complex tachycardia. Patient had coffee colored emesis as per the daughter 1 day before coming here. Charges/Coding Addendum Addendum: Total time of the visit including total time spent in counseling or coordination of care, (more than 50% of the total time, spent in obtaining medical information from nurses and other ancillary care providers,explaining to the patient about labs, imaging, diagnosis and management of active complex medical conditions), discussion with life sciences teacher, hematologist, clinical update given to the patient's daughter and updated about the CODE STATUS, review of labs and imaging is 45 minutes. Visit Charges Inpatient E&M: 28891 Subs Hosp L3
[2023-11-15] MEDS: 0.9% Saline Lock 10 ML Syringe IV (08:32)
[2023-11-15] MEDS: Lactated Ringers 1,000 ML 999 ML IV (08:32)
[2023-11-15 08:34] LABS: Allen Test Positive; Base Excess -6 mmol/L (-2 to +2); Bicarbonate 20.4 mmol/L (22-26); Blood Gas Specimen Type ART; Mode Not entered; O2 Delivery Device Cannula; PO2 70 mmHG (75-100); SITE R Radial; SO2 92 % (95-99); Total Carbon Dioxide 22 mmol/L; pCO2 39.5 mmHg (35-45); pH 7.32 (7.35-7.45)
--- NOTE | 2023-11-15 09:17 | CON.PCM.CC_ITS ---
Assessment & Plan Assessment/Plan (1) Sepsis: (2) Hypoxemia: PLAN: Plan RECOMMENDATIONS: 1. Given clinical decompensation, broaden antibiotics to vancomycin and Zosyn. 2. Wean supplemental oxygen to maintain saturations at or above 90%. 3. BiPAP therapy with naps and nightly. 4. Discontinue beta-cherelle for now. 5. Obtain follow-up chest x-ray. 6. Check lactate, procalcitonin and BNP. 7. Initiate Levophed, if needed, to maintain hemodynamic stability. IMPRESSIONS: 1. Acute hypoxemic respiratory failure Chest imaging demonstrated findings concerning for pneumonia. As such, the patient's antimicrobials have been broadened. The patient reportedly utilizes only 2 L/min of supplemental oxygen on a nightly basis with her BiPAP. She is unaware of any pre-existing diagnosis of COPD, despite having Advair and albuterol on her outpatient MAR. The patient was previous on Eliquis, which remains on hold over concerns for occult blood positive stools. The patient would not currently tolerate any form of diuresis, given her hemodynamic instability. 2. Hypotension Presumably related to Cardizem that was administered for tachy arrhythmia. The patient was initially treated with supplemental IV fluids. We will continue to monitor the patient clinically and initiate Levophed, if clinically indicated. Alternatively, the patient's hypotension could be related to a smoldering infection given the infiltrate noted on chest x-ray. As such, her antibiotics have been broadened. I would avoid any additional IV fluid resuscitation given her current respiratory status and supplemental oxygen requirement. The patient's beta-cherelle has been placed on hold for the current time. 3. Sepsis The patient presented to the hospital with sepsis due to probable UTI versus pneumonia with acute sepsis related organ dysfunction as evidenced by persistent hypotension with a MAP less than 65 and/or systolic blood pressure less than 90 mmHg. Recommend cautious fluid resuscitation on account of the patient's underlying respiratory insufficiency. The patient's antibiotics have been broadened. Cultures are pending. 4. Anemia The patient's hemoglobin dropped 2 g from yesterday to today. There are no overt signs of any blood loss. However, stool for occult blood was positive. Gastroenterology consultation is pending. Continue PPI therapy twice daily as ordered. 5. 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 Continue BiPAP therapy with naps and nightly. Nurys remains on hold on account of concerns for underlying GI bleeding. This note was generated with [email or web address] dictation software. It may contain incorrect words, spelling, and punctuation that were not noted in checking the note before signing. HPI Consult Data Date of Consult: 11/15/23 HPI Narrative Reason for Consultation: Hypotension HPI Narrative: The patient is an 83-year-old female, with a history as outlined below, who presented to the emergency department on November 13 with abdominal pain and melanotic stools. The patient has a documented history of morbid obesity, chronic kidney disease, history of VTE with factor V Leiden status post IVC filter placement, obstructive sleep apnea, chronic respiratory failure and questionable fibrosis. The patient reportedly utilizes a BiPAP at home and reports compliance with its use. On presentation to the emergency department, the patient was documented to be af ebrile hemodynamically stable. She was requiring 4 L/min of supplemental oxygen to maintain saturations. Initial laboratory evaluation revealed a white blood cell count of 14,000. Chemistry profile was notable for a creatinine of 1.1. Urine analysis was positive for nitrites and leukocyte esterase along with 1+ urine bacteria. CT abdomen/pelvis demonstrated bilateral nonobstructing renal stones. Chest x-ray demonstrated no acute cardiopulmonary process. In the emergency department, the patient received supplemental IV fluids, antibiotics and Protonix. She was admitted to the progressive care unit for further management. Surface echocardiogram completed in November 2023 demonstrated normal LV size and function with an ejection fraction of 60%. It appears that last evening, the patient's blood pressures started on a downward trajectory. She did receive additional supplemental IV fluid hydration. In addition, her supplemental oxygen demand increased as well. The patient was ultimately transferred to the medical intensive care unit on the morning of November 15 due to persistent hypotension. The patient is currently documented to be overall net +3.7 L for the hospitalization. Stool for occult blood was noted to be positive. Her white count remains elevated this morning at 16,000 with a hemoglobin of 9.2 g/dL. ABG demonstrated a pH of 7.32 with a pCO2 of 39 and pO2 of 70. [facility] Medical History (Updated 11/15/23 @ 12:[address] Eric Contreras, DO) Asthma Atrial fibrillation BiPAP (biphasic positive airway pressure) dependence Carpal tunnel syndrome Chronic anticoagulation CKD (chronic kidney disease) COPD (chronic obstructive pulmonary disease) DVT (deep venous thrombosis) Essential hypertension Fracture of right radius GI bleed History of deep venous thrombosis History of pulmonary embolus (PE) (2008) History of ulcerative colitis Hyperlipidemia Hypertension Hypotension Morbid obesity On home oxygen therapy CHAI treated with BiPAP Presence of IVC filter Pulmonary fibrosis Restless leg syndrome RLS (restless legs syndrome) Secondary pulmonary arterial hypertension Thrombocytopenia Home Medications rosuvastatin 10 mg tablet 10 mg PO QHS CHOLESTEROL LOWERING 05/13/15 [History Last Taken 11/12/23] sulfasalazine 500 mg tablet 1,000 mg PO BID COLITIS 10/23/15 [History Last Taken 07/28/23] amitriptyline 100 mg tablet 100 mg PO QHS DEPRESSION 01/30/17 [History Last Taken 11/12/23] glucosamine HCl 500 mg-msm 83 mg-chondroitin 400 mg tablet 1 ea PO BID MENJIVAR PPLEMENT 01/30/17 [History Last Taken 11/13/23] pramipexole 1.5 mg tablet 1.5 mg PO QHS restless legs 01/12/20 [History Last Taken 11/12/23] levothyroxine 175 mcg tablet 175 mcg PO DAILY 01/25/21 [History Last Taken 11/13/23] duloxetine 60 mg capsule,delayed release 60 mg PO Q OTHER DAY depression 0 07/27/22 [History Last Taken 11/13/23] mirabegron 50 mg tablet,extended release 24 hr (Myrbetriq) 50 mg PO DAILY 07/27/22 [History Last Taken 11/13/23] metoprolol succinate 25 mg tablet,extended release 24 hr 25 mg PO DAILY htn 04/10/23 [History Last Taken 11/13/23] melatonin 3 mg capsule 3 mg PO HS PRN insomnia 09/12/23 [History Last Taken 11/12/23] tramadol 50 mg tablet 50 mg PO BID 09/12/23 [History Last Taken 11/13/23] acetaminophen 325 mg tablet 650 mg PO TID 11/13/23 [History Last Taken 11/13/23] albuterol sulfate 2.5 mg/3 mL (0.083 %) solution for nebulization 2.5 mg inhalation Q6H PRN shortness of breath 11/13/23 [History Last Taken Unknown] apixaban 5 mg tablet (Eliquis) 5 mg PO BID 11/13/23 [History Last Taken 11/12/23] ciprofloxacin HCl 500 mg tablet 500 mg PO BID 11/13/23 [History Last Taken 11/13/23] d-mannose 500 mg capsule (AZO D-Mannose) 2,000 mg PO QHS UTI PREVENTION 11/13/23 [History Last Taken 11/12/23] fluticasone 100 mcg-salmeterol 50 mcg/dose blistr powdr for inhalation (Advair Diskus) 1 inh inhalation BID 11/13/23 [History Last Taken 11/13/23] ondansetron HCl 4 mg tablet 4 mg PO Q6H PRN nausea 11/13/23 [History Last Taken 11/12/23] Allergy/AdvReac Type Severity Reaction Status Date / Time erythromycin base Allergy Mild unknown Verified 09/19/23 14:50 aspirin [From Robaxisal] Allergy Unknown Verified 09/19/23 14:50 digoxin [From Lanoxin] Allergy Unknown Verified 09/19/23 14:50 etodolac [From Lodine] Allergy Unknown Verified 09/19/23 14:50 ibuprofen [From Motrin] Allergy Unknown Verified 09/19/23 14:50 meclizine HCl [From Antivert] Allergy Unknown Verified 09/19/23 14:50 meclofenamate sodium Allergy Unknown Verified 09/19/23 14:50 [From Meclomen] methocarbamol Allergy Unknown Verified 09/19/23 14:50 [From Robaxisal] nabumetone [From Relafen] Allergy Unknown Verified 09/19/23 14:50 naproxen Allergy Unknown Verified 09/19/23 14:50 sulfamethoxazole Allergy Unknown Verified 09/19/23 14:50 [From Bactrim] trimethoprim [From Bactrim] Allergy Unknown Verified 09/19/23 14:50 hydrocodone AdvReac Severe HALLUCINATI Verified 09/19/23 14:50 ONS Penicillins AdvReac Intermediate Diarrhea Verified 09/19/23 14:50 Family History Father Prostate cancer Brother Heart disease Mother Parkinsons disease Surgical History (Updated 11/13/23 @ 19:24 by Ashley Noriega) H/O colonoscopy H/O right heart catheterization (04/11/19) History of appendectomy History of basal cell carcinoma excision History of carpal tunnel surgery of right wrist History of cholecystectomy History of embolic filter insertion History of total left knee replacement (12/19/07) S/P appendectomy S/P cholecystectomy S/P Mohs surgery for basal cell carcinoma Status post total left knee replacement Social History household members: none Smoking Status: Former smoker how long ago did patient quit smokin years ago alcohol intake: never substance use type: does not use caffeine: Yes Type: coffee Number of servings: 1 ROS ROS Narrative 10 systems were reviewed with pertinent positives as noted in HPI above. Physical Exam Const alert and no apparent distress Constitutional Narrative: Morbidly obese. General Appearance: cooperative HEENT normocephalic, head/scalp atraumatic and moist oral mucous membranes Eyes PERRL, EOMs intact bilaterally and conjunctivae normal Neck supple General: trachea midline Chest inspection of chest normal Resp normal respiratory effort Auscultation: rales and diminished lung sounds Cardio regular rate and regular rhythm GI normal to inspection, nondistended, normoactive bowel sounds Extremity no clubbing, cyanosis or edema Skin no rashes or lesions noted Neuro CN's II-XII intact bilaterally and no focal motor deficits Psych cooperative and affect normal Lab / Micro Data 11/15/23 06:00 11/15/23 06:00 Labs: Laboratory Results - last 24 hr 11/14/23 02:11: PTH Intact 55.8 11/14/23 06:11: Vitamin D 25-Hydroxy 52.0 11/14/23 13:28: Sodium Cancelled, Potassium Cancelled, Chloride Cancelled, Carbon Dioxide Cancelled, Anion Gap Cancelled, BUN Cancelled, Creatinine Cancelled, Estim Creat Clear Calc Cancelled, Est GFR (MDRD) Af Amer Cancelled, Est GFR (MDRD) Non-Af Cancelled, BUN/Creatinine Ratio Cancelled, Glucose Cancelled, Calcium Cancelled, Magnesium Cancelled 11/14/23 15:10: Sodium 139, Potassium 3.9, Chloride 112 H, Carbon Dioxide 21.0, Anion Gap 6, BUN 67 H, Creatinine 1.44 H, Estim Creat Clear Calc 32.63, Est GFR (MDRD) Af Amer 45 L, Est GFR (MDRD) Non-Af 37 L, BUN/Creatinine Ratio 46.5 H, Glucose 110 H, Calcium 8.6, Magnesium 2.6 11/15/23 06:00: WBC 16.2 H, RBC 2.95 L, Hgb 9.2 L, Hct 29.6 L, MCV 100.3 H, MCH 31.2, MCHC 31.1 L, RDW Std Deviation 55.8 H, RDW Coeff of Sina 15.1 H, Plt Count 174, MPV 9.3, Immature Gran % (Auto) 0.600, Neut % (Auto) 87.6 H, Lymph % (Auto) 5.9 L, [place] % (Auto) 5.4, Eos % (Auto) 0.2, Baso % (Auto) 0.3, Absolute Neuts (auto) 14.2 H, Absolute Lymphs (auto) 0.96, Nucleated RBC % 0, PT 22.5 H, INR 2.0, APTT 56.3 H, Sodium 144, Potassium 4.7, Chloride 118 H, Carbon Dioxide 22.0, Anion Gap 4 L, BUN 57 H, Creatinine 1.14 H, Estim Creat Clear Calc 41.17, Est GFR (MDRD) Af Amer 59 L, Est GFR (MDRD) Non-Af 48 L, BUN/Creatinine Ratio 5 0.0 H, Glucose 95, Calcium 8.5, Total Bilirubin 0.60, Direct Bilirubin 0.32 H, AST 29, ALT 19, Alkaline Phosphatase 84, Total Protein 5.5 L, Albumin 2.2 L, Globulin 3.3 ABG Data ABG results: ABG 11/15/23 08:31 Specimen Type ART Sample Site R Radial pH 7.32 L Bicarbonate Actual 20.4 L Total CO2 22 Base Excess -6 L O2 Saturation 92 L O2 % 13.0 ABG pCO2 39.5 ABG pO2 70 L Theodore Test Positive O2 Delivery Device Cannula Vent Mode Not entered Rhythm Strip Rhythm Strip: Sinus Tach Rate: 126 Ectopy: None Imagaing Radiology Impression Echocardiogram 11/14/23 15:06 Interpretation Summary Normal LV size. Left ventricular systolic function is normal. The estimated ejection fraction is 60 %. The study was technically limited. Ordering Physician: Duc Barraza Referring Physician: Jovani Mcconnell Performed By: Khadra Scales, NIYAH, RVT Charges/Coding Visit Charges Inpatient E&M: 74506 Init Hosp L3
--- NOTE | 2023-11-15 09:30 | RAD_ITS ---
STUDY: X-RAY CHEST REASON FOR EXAM: Female, 83 years old. Respiratory Failure TECHNIQUE: Single AP portable view of the chest. COMPARISON: Comparison is made with prior study dated November 13, 2023. FINDINGS: EKG electrodes are seen. New patchy infiltrate in the right midlung and right lung base. Stable mild increased markings at the left lung base. There is no demonstrated pleural abnormality. Normal size heart. Normal mediastinum and antwon. Normal visualized pulmonary arteries. There is atherosclerotic calcification of the aortic arch with tortuosity. There are diffuse degenerative changes of the visualized thoracic spine. Normal visualized ribs, clavicles, and shoulders. There is no demonstrated abnormality of the visualized soft tissue structures of the upper abdomen. RAD/Chest 1 View (Portable) IMPRESSION: New patchy infiltrate in the right midlung and right lung base. Stable increased markings at the left lung base. Electronically Signed: Dionisio Mora MD at 10:30 EST ,
[2023-11-15 09:44] LABS: Pathologist Review Reviewed
[2023-11-15] MEDS: Midodrine HCl 5 MG Tablet 10 MG PO ×3 (09:50→17:23)
[2023-11-15] MEDS: Pantoprazole Sodium 40 MG in 0.9% Normal Saline (100mL MB+) 100 ML 330 MG IV ×2 (09:52→21:28)
[2023-11-15] MEDS: 0.9% Normal Saline (250mL Bag) 250 ML 15 ML IV (09:53)
[2023-11-15] MEDS: Menthol/Lanolin/Calamine/Znox 113 GM Tube 1 APPLIC TOPICAL ×4 (09:56→21:30)
[2023-11-15] MEDS: Miconazole Nitrate 43 GM Bottle 1 APPLIC TOPICAL (09:57)
[2023-11-15] MEDS: Ceftriaxone 1 GM/50 ML BAG IV (10:32)
[2023-11-15] MEDS: sulfaSALAzine 500 MG Tablet 1000 MG PO ×2 (10:34→20:39)
[2023-11-15] MEDS: Vibegron 75 MG TABLET PO (10:35)
[2023-11-15] MEDS: Acetaminophen 325 MG Tablet 650 MG PO (12:23)
[2023-11-15] MEDS: Vancomycin HCl 2,000 MG in 0.9% Normal Saline (500mL Bag) 500 ML 250 MG IV (13:38)
--- NOTE | 2023-11-15 14:07 | PCM.RX.CS ---
Consult Antibiotic Management Pharmacy has been consulted to manage selected antibiotic: Vancomycin Type of Intervention Type of Consult: New start Suspected Infection Suspected Infection: Sepsis Prior Doses of Antibiotics Prior Doses of Antibiotics Received/Current Regimen: Vancomycin 2000 mg IV given 11/15/23 @ 1338, patient is also on piperacillin/tazobactam 3.375g Q8H as well Labs Labs: Sodium 144 mmol/L (136-145) 11/15/23 06:00 Potassium 4.7 mmol/L (3.5-5.1) 11/15/23 06:00 Chloride 118 mmol/L (98-107) H 11/15/23 06:00 Carbon Dioxide 22.0 mmol/L (21.0-32.0) 11/15/23 06:00 Anion Gap 4 (5-15) L 11/15/23 06:00 BUN 57 mg/dL (7-18) H 11/15/23 06:00 Creatinine 1.14 mg/dL (0.55-1.02) H 11/15/23 06:00 Est GFR (MDRD) Af Amer 59 mL/min (>60) L 11/15/23 06:00 Est GFR (MDRD) Non-Af 48 mL/min (>60) L 11/15/23 06:00 BUN/Creatinine Ratio 50.0 RATIO (10-20) H 11/15/23 06:00 Glucose 95 mg/dL (74-106) 11/15/23 06:00 Microbiology Microbiology: Microbiology 11/13/23 13:40 Urine, Catheterized Urine Culture - Final Culture exhibits no growth. 11/14/23 01:42 Stool Stool Occult Blood (DARREL) - Final Occult Blood Positive 11/13/23 13:22 Mucosa - Nasopharyngeal SARS-CoV-2, Influenza & RSV (PCR) - Final Dosing Weight Weight used for dosin.1 kg Estimated Creatinine Clearance Estimated Creatinine Clearance: ~41 Goal Trough Goal Trough: 15-20 mcg/mL Pharmacy Plan for Drug Dosing Pharmacy Plan for Drug Dosing: Vancomycin 2000 mg IV x 1 loading dose followed by 750 mg Q12H Pharmacy Service will continue to monitor and adjust dosing as required. Follow-Up Labs Follow-Up Labs: Trough: Vancomycin Date/Time Labs Ordered Labs to be done on [date and time ordered]: 11/17/23 @ 7514
[2023-11-15] MEDS: Piperacil/Tazobactam 3.375 GM in 0.9% Normal Saline (50mL MB+) 50 ML IV ×2 (16:05→21:28)
--- NOTE | 2023-11-15 17:39 | EX.PCM.CON.G ---
HPI Consult Data Date of Consult: 11/15/23 HPI Narrative Reason for Consultation: Abdominal pain and anemia HPI Narrative: OPAL SHIPLEY, is a 83 F who presents with chief complaint of complaining of lower abdominal pain with either burping up coffee-ground emesis. She has a past medical history of hypothyroidism, CKD stage III unclear subtype, Morbid obesity, Hx VTE (DT, PE) with factor V Leiden s/p IVCF placement,, , Chronic Hypoxic Respiratory Failure secondary to COPD complicated by Pulmonary Fibrosis, Ulcerative colitis, Chronic thrombocytopenia, Chronic anemia, Anxiety and Depression. She presented to the [facility] ED on 11/13/23 with history of onset abdominal discomfort starting on day of presentation ongoing for several hours noted to be intermittent and crampy in nature primarily in bilateral lower, right greater than left with associated nausea as well as reported questionable coffee-ground emesis. It was unclear if it was melanotic or black in appearance with no history of previous GI bleed with history of recent UTI diagnosis noted to be on an antibiotic for approximately 1 week but unclear specific type in addition prompting initial ED evaluation. [facility] reports that patient has not had dark appearing stools. Review of recent microbiology notable for 11/03/2023 urine culture with positive Klebsiella pneumo resistant to ampicillin but sensitive to everything else workup in the ED included T98.7, heart rate 129--> most recent repeat 122, BP 104/64-->most recent repeat 98/55, respiratory rate 20, 92% on 4 L nasal cannula WBC 14, hemoglobin 14.3, MCV 101.9, platelet 307 with left shift and lymphopenia, coags with PT 17.3, INR 1.4, CMP with BUN/plan 33/1.11, glucose 139, calcium mildly elevated 10.6, hepatic profile not marked appearing, lipase 27, urinalysis noted to be cloudy, specific gravity 1.025, protein 100, ketone 5, occult blood 250, nitrate positive, 3 urine bilirubin, 1 urine urobilinogen, 25 leukocyte Estrace with 25-50 urine RBCs, urine WC 0-5 with 1+ urine bacteria, type and screen initiated per ED physician, chest x-ray with no acute cardiopulmonary findings, SARS COVID/flu/RSV PCR is negative, CT abdomen pelvis with IV contrast with nonspecific fluid-filled small bowel loops without any evidence of bowel obstruction with no focal acute inflammatory process, bilateral nonobstructing renal stones with the largest in the left renal pelvis, fecal retention concerning for constipation otherwise no acute intra-abdominal finding. She was supposed to undergo an upper endoscopy today. However she was noted to be hypotensive, hypoxic and was noted to be in SVT. Currently she is not in SVT but still rather tachycardia with a heart rate ranging from 1 120 to 130. [facility] Medical History (Updated 11/15/23 @ 12:[address] Eric Contreras, DO) Asthma Atrial fibrillation BiPAP (biphasic positive airway pressure) dependence Carpal tunnel syndrome Chronic anticoagulation CKD (chronic kidney disease) COPD (chronic obstructive pulmonary disease) DVT (deep venous thrombosis) Essential hypertension Fracture of right radius GI bleed History of deep venous thrombosis History of pulmonary embolus (PE) (2008) History of ulcerative colitis Hyperlipidemia Hypertension Hypotension Morbid obesity On home oxygen therapy CHAI treated with BiPAP Presence of IVC filter Pulmonary fibrosis Restless leg syndrome RLS (restless legs syndrome) Secondary pulmonary arterial hypertension Thrombocytopenia Home Medications rosuvastatin 10 mg tablet 10 mg PO QHS CHOLESTEROL LOWERING 05/13/15 [History Last Taken 11/12/23] sulfasalazine 500 mg tablet 1,000 mg PO BID COLITIS 10/23/15 [History Last Taken 07/28/23] amitriptyline 100 mg tablet 100 mg PO QHS DEPRESSION 01/30/17 [History Last Taken 11/12/23] glucosamine HCl 500 mg-msm 83 mg-chondroitin 400 mg tablet 1 ea PO BID SUPPLEMENT 01/30/17 [History Last Taken 11/13/23] pramipexole 1.5 mg tablet 1.5 mg PO QHS restless legs 01/12/20 [History Last Taken 11/12/23] levothyroxine 175 mcg tablet 175 mcg PO DAILY 01/25/21 [History Last Taken 11/13/23] duloxetine 60 mg capsule,delayed release 60 mg PO Q OTHER DAY depression 07/27/22 [History Last Taken 11/13/23] mirabegron 50 mg tablet,extended release 24 hr (Myrbetriq) 50 mg PO DAILY 07/27/22 [History Last Taken 11/13/23] metoprolol succinate 25 mg tablet,extended release 24 hr 25 mg PO DAILY htn 04/10/23 [History Last Taken 11/13/23] melatonin 3 mg capsule 3 mg PO HS PRN insomnia 09/12/23 [History Last Taken 11/12/23] tramadol 50 mg tablet 50 mg PO BID 09/12/23 [History Last Taken 11/13/23] acetaminophen 325 mg tablet 650 mg PO TID 11/13/23 [History Last Taken 11/13/23] albuterol sulfate 2.5 mg/3 mL (0.083 %) solution for nebulization 2.5 mg inhalation Q6H PRN shortness of breath 11/13/23 [History Last Taken Unknown] apixaban 5 mg tablet (Eliquis) 5 mg PO BID 11/13/23 [History Last Taken 11/12/23] ciprofloxacin HCl 500 mg tablet 500 mg PO BID 11/13/23 [History Last Taken 11/13/23] d-mannose 500 mg capsule (AZO D-Mannose) 2,000 mg PO QHS UTI PREVENTION 11/13/23 [History Last Taken 11/12/23] fluticasone 100 mcg-salmeterol 50 mcg/dose blistr powdr for inhalation (Advair Diskus) 1 inh inhalation BID 11/13/23 [History Last Taken 11/13/23] ondansetron HCl 4 mg tablet 4 mg PO Q6H PRN nausea 11/13/23 [History Last Taken 11/12/23] Allergy/AdvReac Type Severity Reaction Status Date / Time erythromycin base Allergy Mild unknown Verified 09/19/23 14:50 aspirin [From Robaxisal] Allergy Unknown Verified 09/19/23 14:50 digoxin [From Lanoxin] Allergy Unknown Verified 09/19/23 14:50 etodolac [From Lodine] Allergy Unknown Verified 09/19/23 14:50 ibuprofen [From Motrin] Allergy Unknown Verified 09/19/23 14:50 meclizine HCl [From Antivert] Allergy Unknown Verified 09/19/23 14:50 meclofenamate sodium Allergy Unknown Verified 09/19/23 14:50 [From Meclomen] methocarbamol Allergy Unknown Verified 09/19/23 14:50 [From Robaxisal] nabumetone [From Relafen] Allergy Unknown Verified 09/19/23 14:50 naproxen Allergy Unknown Verified 09/19/23 14:50 sulfamethoxazole Allergy Unknown Verified 09/19/23 14:50 [From Bactrim] trimethoprim [From Bactrim] Allergy Unknown Verified 11/15/23 14:50 hydrocodone AdvReac Severe HALLUCINATI Verified 09/19/23 14:50 ONS Penicillins AdvReac Intermediate Diarrhea Verified 09/19/23 14:50 Family History Father Prostate cancer Brother Heart disease Mother Parkinsons disease Surgical History (Updated 11/13/23 @ 19:24 by Ashley Noriega) H/O colonoscopy H/O right heart catheterization (04/11/19) History of appendectomy History of basal cell carcinoma excision History of carpal tunnel surgery of right wrist History of cholecystectomy History of embolic filter insertion History of total left knee replacement (12/19/07) S/P appendectomy S/P cholecystectomy S/P Mohs surgery for basal cell carcinoma Status post total left knee replacement Social History household members: none Smoking Status: Former smoker how long ago did patient quit smokin years ago alcohol intake: never substance use type: does not use caffeine: Yes Type: coffee Number of servings: 1 ROS ROS Narrative 10 systems were reviewed with pertinent positives as noted in HPI above. Lab / Micro Data 11/15/23 06:00 11/15/23 06:00 Labs: Laboratory Results - last 24 hr 11/14/23 02:11: Diff Path Review Reviewed 11/15/23 06:00: WBC 16.2 H, RBC 2.95 L, Hgb 9.2 L, Hct 29.6 L, MCV 100.3 H, MCH 31.2, MCHC 31.1 L, RDW Std Deviation 55.8 H, RDW Coeff of Sina 15.1 H, Plt Count 174, MPV 9.3, Immature Gran % (Auto) 0.600, Neut % (Auto) 87.6 H, Lymph % (Auto) 5.9 L, Giles % (Auto) 5.4, Eos % (Auto) 0.2, Baso % (Auto) 0.3, Absolute Neuts (auto) 14.2 H, Absolute Lymphs (auto) 0.96, Nucleated RBC % 0, PT 22.5 H, INR 2.0, APTT 56.3 H, Sodium 144, Potassium 4.7, Chloride 118 H, Carbon Dioxide 22.0, Anion Gap 4 L, BUN 57 H, Creatinine 1.14 H, Estim Creat Clear Calc 41.17, Est GFR (MDRD) Af Amer 59 L, Est GFR (MDRD) Non-Af 48 L, BUN/Creatinine Ratio 50.0 H, Glucose 95, Calcium 8.5, Total Bilirubin 0.60, Direct Bilirubin 0.32 H, AST 29, ALT 19, Alkaline Phosphatase 84, Total Protein 5.5 L, Albumin 2.2 L, Globulin 3.3 Micro: Microbiology 11/13/23 13:40 Urine, Catheterized Urine Culture - Final Culture exhibits no growth. ABG Data ABG results: ABG 11/15/23 08:31 Specimen Type ART Sample Site R Radial pH 7.32 L Bicarbonate Actual 20.4 L Total CO2 22 Base Excess -6 L O2 Saturation 92 L O2 % 13.0 ABG pCO2 39.5 ABG pO2 70 L Theodore Test Positive O2 Delivery Device Cannula Vent Mode Not entered Rhythm Strip Rhythm Strip: Sinus Tach Rate: 126 Ectopy: None Imagaing Radiology Impression Echocardiogram 11/14/23 15:06 Interpretation Summary Normal LV size. Left ventricular systolic function is normal. The estimated ejection fraction is 60 %. The study was technically limited. Ordering Physician: Duc Barraza Referring Physician: Jovani Mcconnell Performed By: Khadra Scales, ZACKERYCS, RVT Chest X-Ray 11/15/23 09:30 IMPRESSION: New patchy infiltrate in the right midlung and right lung base. Stable increased markings at the left lung base. Electronically Signed: Dionisio Mora MD at 10:30 EST , Assessment & Plan Assessment/Plan (1) UTI (urinary tract infection): QUALIFIERS: Urinary tract infection type: site unspecified (2) Acute upper GI bleed: PLAN: Plan The patient is an 83 y/o F w/ PMHx: Hypothyroidism, CKD stage III unclear subtype, Morbid obesity, Hx VTE (DT, PE) with factor V Leiden s/p IVCF placement, HTN, HLD, CHAI on BIPAP, RLS, COPD complicated by Pulmonary Fibrosis, Ulcerative colitis, Chronic thrombocytopenia, Chronic anemia, Anxiety and Depression who presents to the [facility] ED on 07/29/23 with history of increased weakness, malaise and difficulty even getting herself out of her chair prompting family to come over who was eventually able to help her stand however she cannot even walk therefore given concerns about ability to take care of herself safely with a high fall risk prompted family to bring her to the ED for evaluation. Coffee-ground emesis in the setting of anticoagulation. When she is medically stable we can pursue an upper endoscopy to evaluate her coffee-ground emesis. Hemoglobin is slightly down. Continue PPI therapy and continue supportive care. Ulcerative colitis: We will continue patient home sulfasalazine chronic home regimen, not on any chronic steroids of note. She does not recommend last time she had a surveillance colonoscopy over also colitis. Chronic thrombocytopenia: Unclear exact etiology, the differential diagnosis does include cirrhosis secondary to fatty liver disease. Charges/Coding Visit Charges Inpatient E&M: 22108 Init Hosp L3
[2023-11-15 20:17] LABS: M R Staph aureus DNA By PCR Negative (Negative); Probe Check PASS; Specimen Processing Control PASS
[2023-11-15] MEDS: Atorvastatin Calcium 20 MG Tablet PO (20:38)
[2023-11-15] MEDS: Pramipexole Di-HCl 0.5 MG Tablet 1.5 MG PO (20:39)
[2023-11-15] MEDS: traMADol 50 MG Tablet PO (20:39)
[2023-11-16] VITALS (32 sets, daily range): BP systolic 83–146; BP diastolic 50–98; PULSE 102–115; RESP 14–33; TEMP 35.9–36.6; O2SAT 85–95; BMI 46.7
[2023-11-16 00:01] LABS: BNP,B-Type NATRIURETIC PEPTIDE 201.3 pg/mL (0-100)
[2023-11-16 00:03] LABS: Lactic Acid 0.7 mmol/L (0.4-1.9); Troponin-I HS 16 pg/mL (3.0-54.0)
[2023-11-16 00:10] LABS: Procalcitonin 1.45 ng/mL (0.00-0.09)
[2023-11-16] MEDS: Vancomycin HCl 750 MG in 0.9% Normal Saline (250mL Bag) 250 ML 250 MG IV ×2 (02:56→17:37)
[2023-11-16] MEDS: 0.9% Saline Lock 10 ML Syringe IV ×2 (02:56→05:47)
[2023-11-16] MEDS: Piperacil/Tazobactam 3.375 GM in 0.9% Normal Saline (50mL MB+) 50 ML IV ×3 (05:46→23:01)
[2023-11-16] MEDS: Levothyroxine 175 MCG Tablet PO (05:47)
--- NOTE | 2023-11-16 05:55 | EKG12_ITS ---
Test Reason : AM EKG Blood Pressure : / mmHG Vent. Rate : 105 BPM Atrial Rate : 105 BPM P-R Int : 154 ms QRS Dur : 080 ms QT Int : 334 ms P-R-T Axes : 013 006 017 degrees QTc Int : 441 ms Sinus tachycardia Low voltage QRS Confirmed by MARLYS LIEBERMAN MD ([id number]), web content editor KATIE WILLS ([id number]) on 11/16/2023 9:46:55 AM Referred By: RAUL Confirmed By:MARLYS LIEBERMAN MD
--- NOTE | 2023-11-16 06:41 | PN.CC_ITS ---
Assessment & Plan Assessment/Plan (1) Sepsis: (2) Hypoxemia: PLAN: Plan RECOMMENDATIONS: 1. Initiate heated high flow oxygen. Wean FiO2 to maintain saturations at or above 90%. 2. BiPAP therapy with naps and nightly. 3. Continue broad-spectrum antimicrobials. 4. Continue PPI therapy as ordered. 5. Monitor blood counts and transfuse if hemoglobin drops below 7 g/dL. 6. Obtain CTA chest. IMPRESSIONS: 1. Acute hypoxemic respiratory failure Chest imaging demonstrated findings concerning for pneumonia. As such, the patient's antimicrobials have been broadened. The patient reportedly utilizes only 2 L/min of supplemental oxygen on a nightly basis with her BiPAP. She is unaware of any pre-existing diagnosis of COPD, despite having Advair and albuterol on her outpatient MAR. The patient was previously on Eliquis, which remains on hold over concerns for occult blood positive stools. Continue current supportive measures. Plan to transition the patient to heated high flow oxygen and wean FiO2 to maintain saturations at or above 90%. BiPAP therapy can be utilized with naps and nightly. CTA chest will be obtained to rule out PE and evaluate the extent of her underlying pulmonary infectious process. 2. Hypotension Resolved. Presumably related to Cardizem that was administered for tachy arrhythmia. The patient was initially treated with supplemental IV fluids. We will continue to monitor the patient clinically and initiate Levophed, if clinically indicated. Alternatively, the patient's hypotension could be related to a smoldering infection given the infiltrate noted on chest x-ray. As such, she will be continued on broad-spectrum antimicrobials. 3. Sepsis The patient presented to the hospital with sepsis due to probable UTI versus pneumonia with acute sepsis related organ dysfunction as evidenced by persistent hypotension with a MAP less than 65 and/or systolic blood pressure less than 90 mmHg. Recommend cautious fluid resuscitation on account of the patient's underlying respiratory insufficiency. The patient's antibiotics have been broadened. Cultures are pending. 4. Anemia The patient's hemoglobin is currently stable. There are no overt signs of any blood loss. The patient will be at high risk for further respiratory decompensation if she were to be taken for endoscopic evaluation at the present time. Therefore, recommend continue current supportive care and continuing PPI therapy as ordered. 5. 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 Continue BiPAP therapy with naps and nightly. Nurys remains on hold on account of concerns for underlying GI bleeding. This note was generated with [employer] dictation software. It may contain incorrect words, spelling, and punctuation that were not noted in checking the note before signing. Subjective Subjective The patient was seen and examined at the bedside this morning. Events from the last 24 hours have been reviewed. The patient is currently afebrile, hemodynamically stable and maintaining appropriate oxygen saturations on AVAPS with an FiO2 requirement of 75%. The patient never had to be started on vasopressors, but her respiratory status has continued to decline. She is d ocumented to be overall net +5.8 L for the hospitalization. White count is elevated at 15,000 with a hemoglobin of 9.2 g/dL. Objective Data Objective Data The patient's most recent lab work, culture data and imaging studies have all been personally reviewed. Surface echocardiogram completed in November 2023 demonstrated normal LV size and function with an ejection fraction of 60%. Vital Signs: Vital Signs Temp Pulse Resp BP Pulse Ox O2 Del Method O2 Flow Rate 97.6 F L 103 H 22 H 116/65 94 Bi-pap 13 11/16/23 04:00 11/16/23 06:00 11/16/23 06:00 11/16/23 06:00 11/16/23 06:00 11/16/23 06:00 11/15/23 14:00 FiO2 75 11/16/23 06:00 Oxygen Flow Rate (L/min) 13 Oxygen Delivery Method Bi-pap Weight: 233 lb 14.567 oz Body Mass Index (BMI) 45.6 Intake & Output: Intake and Output for Last 24 Hours 11/14/23 11/15/23 11/16/23 23:59 23:59 23:59 Intake Total 3792.33 / 3792.33 2333.75 / 2333.75 315 / 315 Output Total 500 / 1200 1250 / 1250 Balance 3292.33 / 2592.33 1083.75 / 1083.75 315 / 315 Lab / Micro Data Attestation: I reviewed the patient's lab results. 11/16/23 03:35 11/16/23 03:35 Labs: Laboratory Results - last 24 hr 11/14/23 02:11: Diff Path Review Reviewed 11/15/23 06:00: PT 22.5 H, INR 2.0, APTT 56.3 H, Sodium 144, Potassium 4.7, Chloride 118 H, Carbon Dioxide 22.0, Anion Gap 4 L, BUN 57 H, Creatinine 1.14 H, Estim Creat Clear Calc 41.17, Est GFR (MDRD) Af Amer 59 L, Est GFR (MDRD) Non-Af 48 L, BUN/Creatinine Ratio 50.0 H, Glucose 95, Calcium 8.5, Total Bilirubin 0.60, Direct Bilirubin 0.32 H, AST 29, ALT 19, Alkaline Phosphatase 84, Total Protein 5.5 L, Albumin 2.2 L, Globulin 3.3 11/15/23 17:20: MRSA (PCR) Negative 11/15/23 23:25: Lactic Acid 0.7, Troponin I High Sens 16, B-Natriuretic Peptide 201.3 H, Procalcitonin 1.45 H Micro: Microbiology 11/13/23 13:40 Urine, Catheterized Urine Culture - Final Culture exhibits no growth. 11/14/23 01:42 Stool Stool Occult Blood (DARREL) - Final Occult Blood Positive 11/13/23 13:22 Mucosa - Nasopharyngeal SARS-CoV-2, Influenza & RSV (PCR) - Final ABG Data ABG results: ABG 11/15/23 08:31 Specimen Type ART Sample Site R Radial pH 7.32 L Bicarbonate Actual 20.4 L Total CO2 22 Base Excess -6 L O2 Saturation 92 L O2 % 13.0 ABG pCO2 39.5 ABG pO2 70 L Theodore Test Positive O2 Delivery Device Cannula Vent Mode Not entered Radiography Diagnostic Testing: Radiology Impression Chest X-Ray 11/15/23 09:30 IMPRESSION: New patchy infiltrate in the right midlung and right lung base. Stable increased markings at the left lung base. Electronically Signed: Dionisio Mora MD at 10:30 EST , Rhythm Strip Rhythm Strip: Sinus Tach Rate: 126 Ectopy: None Physical Exam Const alert and no apparent distress Constitutional Narrative: Morbidly obese. General Appearance: cooperative HEENT normocephalic, head/scalp atraumatic and moist oral mucous membranes Eyes PERRL, EOMs intact bilaterally and conjunctivae normal Neck supple General: trachea midline Chest inspection of chest normal Resp normal respiratory effort Auscultation: rales and diminished lung sounds Cardio regular rate and regular rhythm GI normal to inspection, nondistended, normoactive bowel sounds Extremity no clubbing, cyanosis or edema Skin no rashes or lesions noted Neuro CN's II-XII intact bilaterally and no focal motor deficits Psych cooperative and affect normal Charges/Coding Visit Charges Inpatient E&M: 29959 Subs Hosp L3
[2023-11-16] MEDS: Ipratropium 0.5 MG/2.5 ML SOLUTION INHALATION (06:54)
[2023-11-16] MEDS: Budesonide Respules 0.5 MG/2 ML AMPUL.NEB. INHALATION (06:54)
[2023-11-16 06:55] LABS: Absolute Lymphocyte Count 0.94 X10^3/uL (0.83-4.51); Absolute Neutrophil Count 13.1 X10^3/uL (2.0-7.7); Basophil# 0.05 X10^3/uL; Basophil% 0.3 % (0-1); Eosinophil# 0.08 X10^3/uL; Eosinophils% 0.5 % (0-5); Hematocrit 31.1 % (37-47); Hemoglobin 9.2 g/dL (12.0-15.0); Lymphocyte # 0.94 X10^3/ul (0.83-4.51); Lymphocyte % 6.2 % (19-41); Mean Corp Hgb Conc 29.6 g/dL (32-36); Mean Corpuscular Hgb 30.9 pg (27.0-32.0); Mean Corpuscular Volume 104.4 fL (81-99); Mean Platelet Vol. 9.4 fl (6.2-12.0); Monocyte# 0.87 X10^3/uL; Monocyte% 5.8 % (0-10); NRBC Flagged by Analyzer 0 % (0-5); Neutrophil # 13.05 X10^3/uL (2.7-7.7); Neutrophil % 86.3 % (47-70); Platelet Count 166 K/mm3 (150-450); RBC Distribution Width CV 14.9 % (11.6-14.6); RBC Distribution Width SD 56.6 fl (35.1-43.9); Red Blood Count 2.98 M/mm3 (4.2-5.4); White Blood Count 15.1 K/mm3 (4.4-11.0)
[2023-11-16 07:27] LABS: ALB/GLOB Ratio 0.6 RATIO (0.9-2.4); AST(SGOT) 44 U/L (15-37); Alanine Aminotransfer ALT/SGPT 27 U/L (13-56); Albumin, Serum 2.2 g/dL (3.2-5.0); Alkaline Phosphatase 99 U/L (45-117); Anion Gap 8 (5-15); BUN 31 mg/dL (7-18); BUN/Creat Ratio 36.9 RATIO (10-20); Calcium,Total 9.3 mg/dL (8.5-10.1); Chloride 113 mmol/L (98-107); Creatinine, Serum 0.84 mg/dL (0.55-1.02); EST Glomerular Filtration Rate 69 mL/min (>60); Est Glom Filt Rate - Afr Amer 83 mL/min (>60); Estimated Creatinine Clearance 56.67 ml/min; Globulin 3.7 g/dL (2.2-4.2); Glucose 80 mg/dL (74-106); Potassium 4.3 mmol/L (3.5-5.1); Protein, Total 5.9 g/dL (6.4-8.2); Sodium Level 143 mmol/L (136-145)
--- NOTE | 2023-11-16 07:50 | CT_ITS ---
EXAM: CT ANGIOGRAPHY CHEST WITHOUT AND WITH INTRAVENOUS CONTRAST CLINICAL INDICATION: Respiratory Failure TECHNIQUE: Helically acquired angiography images were obtained of the chest without and with intravenous contrast. This CT exam was performed using one or more of the following dose reduction techniques: automated exposure control, adjustment of the mA and/or kV according to patient size, and/or use of iterative reconstruction technique. MIP reconstructed images were created and reviewed. CONTRAST: IV 100mL [id number]-370 RADIATION DOSE: CTDIvol = 11.47 mGy, DLP = 512.05 mGy-cm COMPARISON: CTA chest 01/14/2020. FINDINGS: PULMONARY ARTERIES: Unremarkable. Normal in caliber. No evidence of pulmonary embolism. AORTA: No thoracic aortic aneurysm or dissection. Minimal calcified and noncalcified plaques along the descending thoracic aorta. GREAT VESSELS OF AORTIC ARCH: Unremarkable. Normal in caliber. No evidence of dissection. LUNGS AND PLEURAL SPACES: Consolidation with air bronchograms in the superior segment of the right lower lobe and partial atelectasis in both posterior lung bases. Normal pulmonary arteries. No mass. No pleural effusion or thickening. HEART: Unremarkable. Heart size is normal. Normal cardiac size. Calcified plaques in the LAD branch. No other coronary artery calcifications. Normal pericardium. MEDIASTINUM: Mildly prominent hiatal hernia. No mediastinal or hilar adenopathy. Esophagus is unremarkable. THYROID: Unremarkable. No thyroid lesions. BONES/JOINTS: Unremarkable. No suspicious lytic or blastic abnormality. CT/CTA Chest W/WO Contrast IMPRESSION: 1. No CTA evidence of pulmonary thromboemboli, thoracic aortic aneurysm or dissection. 2. Consolidation with air bronchograms in the superior segment of the right lower lobe and partial atelectasis with minimal air bronchograms in both posterior lung bases. These are new findings when compared to 01/14/2020. Electronically Signed: Deni Giordano MD at 9:04 EST ,
[2023-11-16] MEDS: Menthol/Lanolin/Calamine/Znox 113 GM Tube 1 APPLIC TOPICAL ×3 (08:38→20:39)
[2023-11-16] MEDS: traMADol 50 MG Tablet PO ×2 (08:38→20:33)
[2023-11-16] MEDS: Midodrine HCl 5 MG Tablet 10 MG PO ×3 (08:38→17:35)
[2023-11-16] MEDS: Miconazole Nitrate 43 GM Bottle 1 APPLIC TOPICAL (08:39)
[2023-11-16] MEDS: Psyllium 1 PACKET PO (08:40)
[2023-11-16] MEDS: Pantoprazole Sodium 40 MG in 0.9% Normal Saline (100mL MB+) 100 ML 330 MG IV ×2 (08:40→23:00)
[2023-11-16] MEDS: sulfaSALAzine 500 MG Tablet 1000 MG PO ×2 (08:40→20:33)
[2023-11-16] MEDS: Vibegron 75 MG TABLET PO (08:40)
--- NOTE | 2023-11-16 12:02 | PCM.PN.HOSP ---
Reason for Visit Reason for Visit: Diagnoses Sepsis, unspecified organism (11/13/23) Dehydration (11/13/23) Gastrointestinal hemorrhage, unspecified (11/13/23) Urinary tract infection, site not specified (11/13/23) Hypoxemia (11/13/23) Objective Data Objective Data Vital Signs: Vital Signs Temp Pulse Resp BP Pulse Ox O2 Del Method O2 Flow Rate 96.7 F L 106 H 26 H 95/53 L 92 Airvo 60 11/16/23 08:00 11/16/23 09:30 11/16/23 09:30 11/16/23 10:00 11/16/23 09:30 11/16/23 10:00 11/16/23 10:00 FiO2 70 11/16/23 10:00 Oxygen Flow Rate (L/min) 60 Oxygen Delivery Method Airvo Weight: 239 lb 6.752 oz Body Mass Index (BMI) 46.7 Intake & Output: Intake and Output for Last 24 Hours 11/14/23 11/15/23 11/16/23 23:59 23:59 23:59 Intake Total 3792.33 / 3792.33 2333.75 / 2333.75 391.25 / 391.25 Output Total 500 / 1200 1250 / 1250 Balance 3292.33 / 2592.33 1083.75 / 1083.75 391.25 / 391.25 Lab / Micro Data 11/16/23 03:35 11/16/23 03:35 Labs: Laboratory Results - last 24 hr 11/15/23 17:20: MRSA (PCR) Negative 11/15/23 23:25: Lactic Acid 0.7, Troponin I High Sens 16, B-Natriuretic Peptide 201.3 H, Procalcitonin 1.45 H 11/16/23 03:35: WBC 15.1 H, RBC 2.98 L, Hgb 9.2 L, Hct 31.1 L, MCV 104.4 H, MCH 30.9, MCHC 29.6 L, RDW Std Deviation 56.6 H, RDW Coeff of Sina 14.9 H, Plt Count 166, MPV 9.4, Immature Gran % (Auto) 0.900, Neut % (Auto) 86.3 H, Lymph % (Auto) 6.2 L, [place] % (Auto) 5.8, Eos % (Auto) 0.5, Baso % (Auto) 0.3, Absolute Neuts (auto) 13.1 H, Absolute Lymphs (auto) 0.94, Nucleated RBC % 0, Sodium 143, Potassium 4.3, Chloride 113 H, Carbon Dioxide 22.0, Anion Gap 8, BUN 31 H, Creatinine 0.84, Estim Creat Clear Calc 56.67, Est GFR (MDRD) Af Amer 83, Est GFR (MDRD) Non-Af 69, BUN/Creatinine Ratio 36.9 H, Glucose 80, Calcium 9.3, Total Bilirubin 0.80, AST 44 H, ALT 27, Alkaline Phosphatase 99, Total Protein 5.9 L, Albumin 2.2 L, Globulin 3.7, Albumin/Globulin Ratio 0.6 L Micro: Microbiology 11/16/23 10:30 Urine, Random Legionella Antigen - Final 11/16/23 10:30 Urine, Random Streptococcus pneumoniae Antigen (M - Final 11/13/23 13:40 Urine, Catheterized Urine Culture - Final Culture exhibits no growth. 11/14/23 01:42 Stool Stool Occult Blood (DARREL) - Final Occult Blood Positive 11/13/23 13:22 Mucosa - Nasopharyngeal SARS-CoV-2, Influenza & RSV (PCR) - Final Radiography Diagnostic Testing: Radiology Impression Chest CTA 11/16/23 07:50 IMPRESSION: 1. No CTA evidence of pulmonary thromboemboli, thoracic aortic aneurysm or dissection. 2. Consolidation with air bronchograms in the superior segment of the right lower lobe and partial atelectasis with minimal air bronchograms in both posterior lung bases. These are new findings when compared to 01/14/2020. Electronically Signed: Deni Giordano MD at 9:04 EST , Rhythm Strip Rhythm Strip: Sinus Tach Rate: 126 Ectopy: None Physical Exam Narrative Seen and examined. Overnight events d noticed. Afebrile. Heart rate 100s. Blood pressure in the 90s. On Airvo. Tachypneic. Physical exam: General: Alert, Oriented x3, Cooperative, morbid obesity BMI 45.7 kg/m? mild respiratory distress HEENT: Atraumatic, PERRLA, EOMI, Normocephalic Oral: No Gingival or Mucosal Lesions/ Ulcerations Neck: Supple, No JVD, Negative Carotid Bruits Lungs: Air entry diminished in bilateral lung bases. Bilateral coarse crepitations. On Airvo. Cardiovascular: Sinus tachycardia, Normal S1, Normal S2, No murmurs Abdomen: Bowel Sounds Present, Soft, Non Tender, Non-Distended : No dysuria. No renal angle tenderness. No suprapubic tenderness. Extremities: Mild, nonpitting pedal edema, fatty tissue, capillary Refill Less than 3 Seconds Skin: No rashes, No breakdown Musculoskeletal: No Tenderness to Palpation of Joints or Extremities ROM restricted. Degenerative arthritis. Neurological: Cranial nerves II-XII grossly intact, DTR 2+/4. No acute focal neurological deficit. Psych/Mental Status: Flat affect. Assessment & Plan Assessment/Plan (1) UTI (urinary tract infection): QUALIFIERS: Urinary tract infection type: site unspecified PLAN: Plan The patient is an 83 y/o F came to the ED for abdominal pain, cramping in nature in the right lower quadrant mild severity associated with nausea but no diarrhea melena or hematochezia. Patient did not had dysuria frequency, hematuria or urgency. Patient is being admitted in PCU. 1. Narrow complex tachycardia most likely SVT/accelerated junctional with hypotension: Last night patient oxygen requirement suddenly increased from baseline 5 L of oxygen to 30 L. Patient also sinus tachycardic fluctuating 110s to 130s. Admission EKG had showed sinus tachycardia with a ventricular rate of 126 and QT C of 425 ms. Repeat EKG done done last night showed markedly elevated QTc of 585 ms, sinus tachycardia. Albuterol was discontinued. Amitriptyline and duloxetine were held because of prolonged QT interval. Metoprolol XL increased from 25 mg to 50 mg daily. 1 dose IV Cardizem 20 mg given. Serum potassium 3.4, mild hypokalemia, hypomagnesia magnesium 1.5, phosphorus normal. Ionized calcium 4.78 normal. Correct electrolytes. Patient blood pressure was low 67/49 and 1 L of Ringer lactate ordered. Probably due to Cardizem. Blood pressure is recorded 119/60. Heart rate 104 per med. On high flow oxygen 13. Monitor EKG daily for prolonged QTc interval. 11/15 patient was found hypotensive last night and in the morning systolic 66. Similarly she was yesterday but responded to IV fluid Ringer lactate. Patient is mild short of breath but denies chest congestion, pressure tightness or wheezing. Mild tachypnea and sinus tachycardia. Patient not on antihypertensive medication. 1 L IV fluid Ringer lactate, ABG and BiPAP ordered. [employer] consulted and transferred to ICU. High flow oxygen. Patient has leukocytosis. Blood cultures x 2 ordered. Limited 2D echo was done. EF 60% no regional wall motion abnormality normal LV size. 11/16: Currently in sinus tachycardia. 2. Sepsis, present on admission: The patient presented with sepsis with clinical indicators tachycardia, tachypnea, hypoxia of due to pneumonia or probable UTI with acute sepsis-related organ dysfunction as evidenced by persistent hold for SBP less than 120 mmHg and acute hypoxic respiratory failure. IV to biotics was broadened yesterday vancomycin and Zosyn. On midodrine 10 mg 3 times daily. Urinary antigens are negative. Urine culture shows no growth. Did not require vasopressor yet. 3.. Recent acute complicated UTI with concern for persistent infection: CT abdomen check patient has bilateral nonobstructing renal stones, largest in left renal pelvis. Patient on IV ceftriaxone. UA shows positive nitrite 1+ bacteria. Previous urine culture from 11/03/2023 is Klebsiella [id number] all sensitive but resistant to ampicillin. Urine culture shows no growth. 3. concern of GI bleed: Stool for occult blood positive. Patient baseline hemoglobin around 12 g. Admission hemoglobin 12.9/47.3% but dropped to 11.1. Since patient was hemoconcentrated therefore IV fluid of normal saline with KCl ordered. GI is consulted. On PPI. 11/15: Patient supposed to have EGD but canceled because of hypotension. Hypocalcemia ruled out: Admission CMP with calcium 10.6 and last noted prior to this 07/30/2023 8.5 mg/dL. Ionized calcium is normal 4.78. Serum phosphorus 3.6. #4. Lower abdominal cramping, discomfort, possibly related with UTI versus constipation: CT abdomen and pelvis with no acute finding #5. Chronic thrombocytopenia: Unclear exact etiology, admission platelets 307, previous baseline primarily 130-170s, however has vacillated, most recent prior 07/30/2023 platelet 140, continue to trend. #6. ASHANTI on chronic Kidney Disease Stage III, unclear subtype: Admission BUN/Cr 33/1.11, baseline renal function since 09/2022 primarily 0.8-1.1, repeat creatinine went up 1.77, BUN 66. Patient clinically looks dehydrated and was also hypotensive therefore 1 L IV fluid Ringer lactate given as mentioned above. 11/15: BUNs/creatinine better 57/1.14.CT abdomen shows bilateral nonobstructive renal stones largest in the left renal pelvis. #7. Hx VTE (DT, PE) with factor V Leiden: s/p IVCF placement, patient previously been on Coumadin now transition to Eliquis therapy, will continue pending evaluations as noted above with hold if concern verified for GI bleed component. #8. 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 Ulcerative colitis: continue patient home sulfasalazine chronic home regimen, not on any chronic steroids of note, encourage continued outpatient follow-up with gastroenterology. #10. Anxiety and depression: We will continue nightly amitriptyline as well as home duloxetine regimen. #11. Hypothyroidism: We will continue patient home levothyroxine regimen. #12. Hypertension: Patient was hypotensive in the morning. Hold antihypertensive medications. #13. Hyperlipidemia: l continue patient home statin therapy. #14. Restless leg syndrome: continue patient home pramipexole regimen. #15. Morbid Obesity: Weight loss and lifestyle changes encouraged. #16. Former tobacco use: Encourage continued tobacco cessation. #17. CHAI: BIPAP nightly. #18. DVT prophylaxis: If there is any drop in hemoglobin or the guaiac is positive we will immediately hold her eliquis, for now will continue as noted given stable Hgb, no overt evidence of GI bleed. #19. CODE status: Clinical update given to the patient's daughter Mrs. Grayson. Still wants to be full code. Discussed about the hypotension, GI bleed and ASHANTI and narrow complex tachycardia. Patient had coffee colored emesis as per the daughter 1 day before coming here. Charges/Coding Visit Charges Inpatient E&M: 69689 [facility] Hosp L3
[2023-11-16 14:09] LABS: Vitamin D 1,25-Dihydroxy 17.3 pg/mL (24.8-81.5)
[2023-11-16] MEDS: Pramipexole Di-HCl 0.5 MG Tablet 1.5 MG PO (20:33)
[2023-11-16] MEDS: Atorvastatin Calcium 20 MG Tablet PO (20:33)
--- NOTE | 2023-11-16 20:40 | EX.PCM.PN.GI ---
Subjective Subjective Patient is still requiring supplemental oxygen. Respiratory statu is a little bit better today. No No signs or symptoms of G.I. bleeding at this time. Her hemoglobin dropped down from 13 to 11.2 to 9.2. Objective Data Objective Data Vital Signs: Vital Signs Temp Pulse Resp BP Pulse Ox O2 Del Method O2 Flow Rate 97.5 F L 108 H 25 H 95/50 L 90 Airvo 60 11/16/23 12:00 11/16/23 20:00 11/16/23 20:00 11/16/23 20:00 11/16/23 20:00 11/16/23 20:00 11/16/23 20:00 FiO2 83 11/16/23 20:00 Oxygen Flow Rate (L/min) 60 Oxygen Delivery Method Airvo Weight: 239 lb 6.752 oz Body Mass Index (BMI) 46.7 Intake & Output: Intake and Output for Last 24 Hours 11/14/23 11/15/23 11/16/23 23:59 23:59 23:59 Intake Total 3792.33 / 3792.33 2333.75 / 2333.75 1316.25 / 1316.25 Output Total 500 / 1200 1250 / 1250 250 / 250 Balance 3292.33 / 2592.33 1083.75 / 1083.75 1066.25 / 1066.25 Lab / Micro Data 11/16/23 03:35 11/16/23 03:35 Labs: Laboratory Results - last 24 hr 11/14/23 06:11: Vit D 1,25-Dihydroxy 17.3 L 11/15/23 23:25: Lactic Acid 0.7, Troponin I High Sens 16, B-Natriuretic Peptide 201.3 H, Procalcitonin 1.45 H 11/16/23 03:35: WBC 15.1 H, RBC 2.98 L, Hgb 9.2 L, Hct 31.1 L, MCV 104.4 H, MCH 30.9, MCHC 29.6 L, RDW Std Deviation 56.6 H, RDW Coeff of Sina 14.9 H, Plt Count 166, MPV 9.4, Immature Gran % (Auto) 0.900, Neut % (Auto) 86.3 H, Lymph % (Auto) 6.2 L, [place] % (Auto) 5.8, Eos % (Auto) 0.5, Baso % (Auto) 0.3, Absolute Neuts (auto) 13.1 H, Absolute Lymphs (auto) 0.94, Nucleated RBC % 0, Sodium 143, Potassium 4.3, Chloride 113 H, Carbon Dioxide 22.0, Anion Gap 8, BUN 31 H, Creatinine 0.84, Estim Creat Clear Calc 56.67, Est GFR (MDRD) Af Amer 83, Est GFR (MDRD) Non-Af 69, BUN/Creatinine Ratio 36.9 H, Glucose 80, Calcium 9.3, Total Bilirubin 0.80, AST 44 H, ALT 27, Alkaline Phosphatase 99, Total Protein 5.9 L, Albumin 2.2 L, Globulin 3.7, Albumin/Globulin Ratio 0.6 L Micro: Microbiology 11/16/23 10:30 Urine, Random Legionella Antigen - Final 11/16/23 10:30 Urine, Random Streptococcus pneumoniae Antigen (M - Final 11/13/23 13:40 Urine, Catheterized Urine Culture - Final Culture exhibits no growth. 11/14/23 01:42 Stool Stool Occult Blood (DARREL) - Final Occult Blood Positive 11/13/23 13:22 Mucosa - Nasopharyngeal SARS-CoV-2, Influenza & RSV (PCR) - Final Radiography Diagnostic Testing: Radiology Impression Chest CTA 11/16/23 07:50 IMPRESSION: 1. No CTA evidence of pulmonary thromboemboli, thoracic aortic aneurysm or dissection. 2. Consolidation with air bronchograms in the superior segment of the right lower lobe and partial atelectasis with minimal air bronchograms in both posterior lung bases. These are new findings when compared to 01/14/2020. Electronically Signed: Deni Giordano MD at 9:04 EST , Rhythm Strip Rhythm Strip: Sinus Tach Rate: 126 Ectopy: None Physical Exam Narrative Seen and examined. Overnight events d noticed. Afebrile. Heart rate 100s. Blood pressure in the 90s. On Airvo. Tachypneic. Physical exam: General: Alert, Oriented x3, Cooperative, morbid obesity BMI 45.7 kg/m? mild respiratory distress HEENT: Atraumatic, PERRLA, EOMI, Normocephalic Oral: No Gingival or Mucosal Lesions/ Ulcerations Neck: Supple, No JVD, Negative Carotid Bruits Lungs: Air entry diminished in bilateral lung bases. Bilateral coarse crepitations. On Airvo. Cardiovascular: Sinus tachycardia, Normal S1, Normal S2, No murmurs Abdomen: Bowel Sounds Present, Soft, Non Tender, Non-Distended : No dysuria. No renal angle tenderness. No suprapubic tenderness. Extremities: Mild, nonpitting pedal edema, fatty tissue, capillary Refill Less than 3 Seconds Skin: No rashes, No breakdown Musculoskeletal: No Tenderness to Palpation of Joints or Extremities ROM restricted. Degenerative arthritis. Neurological: Cranial nerves II-XII grossly intact, DTR 2+/4. No acute focal neurological deficit. Psych/Mental Status: Flat affect. Assessment & Plan Assessment/Plan (1) UTI (urinary tract infection): QUALIFIERS: Urinary tract infection type: site unspecified (2) Acute upper GI bleed: PLAN: Plan The patient is an 83 y/o F w/ PMHx: Hypothyroidism, CKD stage III unclear subtype, Morbid obesity, Hx VTE (DT, PE) with factor V Leiden s/p IVCF placement, HTN, HLD, CHAI on BIPAP, RLS, COPD complicated by Pulmonary Fibrosis, Ulcerative colitis, Chronic thrombocytopenia, Chronic anemia, Anxiety and Depression who presents to the [facility] ED on 07/29/23 with history of increased weakness, malaise and difficulty even getting herself out of her chair prompting family to come over who was eventually able to help her stand however she cannot even walk therefore given concerns about ability to take care of herself safely with a high fall risk prompted family to bring her to the ED for evaluation. hemoglobin still is stable at 9.2 and originally it did drop down to. Coffee-ground emesis in the setting of anticoagulation. When she is medically stable we can pursue an upper endoscopy to evaluate her coffee-ground emesis. Hemoglobin is slightly down. Continue PPI therapy and continue supportive care. Ulcerative colitis: We will continue patient home sulfasalazine chronic home regimen, not on any chronic steroids of note. She does not recommend last time she had a surveillance colonoscopy over also colitis. Chronic thrombocytopenia: Unclear exact etiology, the differential diagnosis does include cirrhosis secondary to fatty liver disease. 11/16- Hemoglobin Seems to be stable at 9.2. Sh she could taste to be off of Eliquis. She denies any signs of symptoms of jag bleeding at this time. She is higher risk for thrombolic event. She is not medically stable for endoscopy at this time due to hypotension, tachycardia, poor performance status at this time, low reserves an and coexisting sepsis. If hemoglobin remains stable, Eliquis can be restarted at 5 mg POBID. Charges/Coding Visit Charges Inpatient E&M: 28624 [facility] Hosp L3
[2023-11-17] VITALS (29 sets, daily range): BP systolic 85–126; BP diastolic 43–86; PULSE 100–119; RESP 14–28; TEMP 36.1–36.2; O2SAT 83–95; BMI 47.0
[2023-11-17] MEDS: Vancomycin Trough/Random Due 1 LAB MC (01:37)
[2023-11-17 02:10] LABS: Vancomycin, Trough Level 16.7 ug/mL (5.0-15.0)
--- NOTE | 2023-11-17 02:22 | PCM.RX.CS ---
Consult Antibiotic Management Pharmacy has been consulted to manage selected antibiotic: Vancomycin Type of Intervention Type of Consult: Follow-up Labs Labs: Sodium 143 mmol/L (136-145) 11/16/23 03:35 Potassium 4.3 mmol/L (3.5-5.1) 11/16/23 03:35 Chloride 113 mmol/L (98-107) H 11/16/23 03:35 Carbon Dioxide 22.0 mmol/L (21.0-32.0) 11/16/23 03:35 Anion Gap 8 (5-15) 11/16/23 03:35 BUN 31 mg/dL (7-18) H 11/16/23 03:35 Creatinine 0.84 mg/dL (0.55-1.02) 11/16/23 03:35 Est GFR (MDRD) Af Amer 83 mL/min (>60) 11/16/23 03:35 Est GFR (MDRD) Non-Af 69 mL/min (>60) 11/16/23 03:35 BUN/Creatinine Ratio 36.9 RATIO (10-20) H 11/16/23 03:35 Glucose 80 mg/dL (74-106) 11/16/23 03:35 Vancomycin Trough 16.7 ug/mL (5.0-15.0) H 11/17/23 01:35 Microbiology Microbiology: Microbiology 11/16/23 10:30 Urine, Random Legionella Antigen - Final 11/16/23 10:30 Urine, Random Streptococcus pneumoniae Antigen (M - Final 11/13/23 13:40 Urine, Catheterized Urine Culture - Final Culture exhibits no growth. 11/14/23 01:42 Stool Stool Occult Blood (DARREL) - Final Occult Blood Positive 11/13/23 13:22 Mucosa - Nasopharyngeal SARS-CoV-2, Influenza & RSV (PCR) - Final Goal Trough Goal Trough: 15-20 mcg/mL Pharmacy Plan for Drug Dosing Pharmacy Plan for Drug Dosing: Pharmacy Service will continue to monitor and adjust dosing as required. TROUGH 16.7 @ 8 HOURS. NO CHANGESZ FOLLOW UP TROUGH IN 2 DAYS Follow-Up Labs Follow-Up Labs: Trough: Vancomycin Date/Time Labs Ordered Labs to be done on [date and time ordered]: 11/19 @ 0130
[2023-11-17 03:51] LABS: Absolute Neutrophil Count 10.8 X10^3/uL (2.0-7.7); Basophil# 0.03 X10^3/uL; Basophil% 0.2 % (0-1); Eosinophil# 0.07 X10^3/uL; Eosinophils% 0.5 % (0-5); Hematocrit 29.2 % (37-47); Hemoglobin 8.6 g/dL (12.0-15.0); Lymphocyte % 7.7 % (19-41); Mean Corp Hgb Conc 29.5 g/dL (32-36); Mean Corpuscular Hgb 30.2 pg (27.0-32.0); Mean Corpuscular Volume 102.5 fL (81-99); Monocyte# 1.07 X10^3/uL; Monocyte% 8.2 % (0-10); NRBC Flagged by Analyzer 0 % (0-5); Neutrophil # 10.76 X10^3/uL (2.7-7.7); Neutrophil % 82.8 % (47-70); Platelet Count 144 K/mm3 (150-450); RBC Distribution Width CV 14.5 % (11.6-14.6); RBC Distribution Width SD 54.8 fl (35.1-43.9); Red Blood Count 2.85 M/mm3 (4.2-5.4)
[2023-11-17] MEDS: 0.9% Saline Lock 10 ML Syringe IV ×2 (03:51→05:04)
[2023-11-17] MEDS: Vancomycin HCl 750 MG in 0.9% Normal Saline (250mL Bag) 250 ML 250 MG IV (03:52)
[2023-11-17 04:07] LABS: Anion Gap 7 (5-15); BUN 19 mg/dL (7-18); BUN/Creat Ratio 27.8 RATIO (10-20); Calcium,Total 9.2 mg/dL (8.5-10.1); Chloride 108 mmol/L (98-107); Creatinine, Serum 0.68 mg/dL (0.55-1.02); EST Glomerular Filtration Rate 87 mL/min (>60); Est Glom Filt Rate - Afr Amer 105 mL/min (>60); Estimated Creatinine Clearance 59.57 ml/min; Glucose 74 mg/dL (74-106); Potassium 3.8 mmol/L (3.5-5.1); Sodium Level 139 mmol/L (136-145)
[2023-11-17] MEDS: Piperacil/Tazobactam 3.375 GM in 0.9% Normal Saline (50mL MB+) 50 ML IV ×3 (05:04→23:18)
[2023-11-17] MEDS: Levothyroxine 175 MCG Tablet PO (05:06)
--- NOTE | 2023-11-17 06:00 | PN.CC_ITS ---
Assessment & Plan Assessment/Plan (1) Sepsis: (2) Hypoxemia: PLAN: Plan RECOMMENDATIONS: 1. Continue heated high flow oxygen and wean FiO2 for saturations greater than 90%. 2. PAP therapy with naps and nightly. 3. Continue broad-spectrum antimicrobials. 4. Continue PPI therapy as ordered. 5. Monitor blood counts and transfuse if hemoglobin drops below 7 g/dL. 6. Encourage incentive spirometer use and mobilize patient as tolerated. 7. Attempt gentle diuresis as tolerated by hemodynamics and renal function. IMPRESSIONS: 1. Acute hypoxemic respiratory failure Chest imaging demonstrated findings concerning for pneumonia. As such, the patient's antimicrobials have been broadened. The patient reportedly utilizes only 2 L/min of supplemental oxygen on a nightly basis with her BiPAP. She is unaware of any pre-existing diagnosis of COPD, despite having Advair and albuterol on her outpatient MAR. The patient was previously on Eliquis, which remains on hold over concerns for occult blood positive stools. Continue current supportive measures. Plan to transition the patient to heated high flow oxygen and wean FiO2 to maintain saturations at or above 90%. PAP therapy can be utilized with naps and nightly. Recommend aggressive incentive spirometer utilization and mobilization as tolerated. In addition, will initiate gentle diuresis as tolerated by hemodynamics and renal function. 2. Hypotension Resolved. Presumably related to Cardizem that was administered for tachy arrhythmia. The patient was initially treated with supplemental IV fluids. We will continue to monitor the patient clinically and initiate Levophed, if clinically indicated. Alternatively, the patient's hypotension could be related to a smoldering infection given the infiltrate noted on chest x-ray. As such, she will be continued on broad-spectrum antimicrobials. 3. Sepsis The patient presented to the hospital with sepsis due to probable UTI versus pneumonia with acute sepsis related organ dysfunction as evidenced by persistent hypotension with a MAP less than 65 and/or systolic blood pressure less than 90 mmHg. Recommend cautious fluid resuscitation on account of the patient's underlying respiratory insufficiency. Continue broad-spectrum antimicrobials as ordered. 4. Anemia The patient's hemoglobin is currently stable. There are no overt signs of any blood loss. The patient will be at high risk for further respiratory decompensation if she were to be taken for endoscopic evaluation at the present time. Therefore, recommend continue current supportive care and continuing PPI therapy as ordered. 5. 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 Continue BiPAP therapy with naps and nightly. Nurys remains on hold on account of concerns for underlying GI bleeding. This note was generated with [employer] dictation software. It may contain incorrect words, spelling, and punctuation that were not noted in checking the note before signing. Subjective Subjective The patient was seen and examined at the bedside this morning. Events from the last 24 hours have been reviewed. The patient is currently afebrile, hemodynamically stable and maintaining appropriate oxygen saturations on heated high flow oxygen with an FiO2 requirement of 83% and flow rate of 60 L/min. The patient has been compliant with the use of nocturnal AVAPS therapy. The patient is documented to be overall net +6.8 L for the hospitalization. White count has improved to 13,000. Creatinine remains stable. Objective Data Objective Data The patient's most recent lab work, culture data and imaging studies have all been personally reviewed. Surface echocardiogram completed in November 2023 demonstrated normal LV size and function with an ejection fraction of 60%. Vital Signs: Vital Signs Temp Pulse Resp BP Pulse Ox O2 Del Method O2 Flow Rate 96.9 F L 102 H 22 H 98/56 L 90 Airvo 60 11/17/23 04:00 11/17/23 05:00 11/17/23 05:00 11/17/23 05:00 11/17/23 05:00 11/17/23 05:00 11/17/23 05:00 FiO2 83 11/17/23 05:00 Oxygen Flow Rate (L/min) 60 Oxygen Delivery Method Airvo Weight: 239 lb 13.807 oz Body Mass Index (BMI) 47.0 Intake & Output: Intake and Output for Last 24 Hours 11/15/23 11/16/23 11/17/23 23:59 23:59 23:59 Intake Total 2333.75 / 2333.75 1476.25 / 1716.25 555 / 555 Output Total 1250 / 1250 250 / 750 500 / 500 Balance 1083.75 / 1083.75 1226.25 / 966.25 55 / 55 Lab / Micro Data Attestation: I reviewed the patient's lab results. 11/17/23 03:40 11/17/23 03:40 Labs: Laboratory Results - last 24 hr 11/14/23 06:11: Vit D 1,25-Dihydroxy 17.3 L 11/16/23 03:35: WBC 15.1 H, RBC 2.98 L, Hgb 9.2 L, Hct 31.1 L, MCV 104.4 H, MCH 30.9, MCHC 29.6 L, RDW Std Deviation 56.6 H, RDW Coeff of Sina 14.9 H, Plt Count 166, MPV 9.4, Immature Gran % (Auto) 0.900, Neut % (Auto) 86.3 H, Lymph % (Auto) 6.2 L, [place] % (Auto) 5.8, Eos % (Auto) 0.5, Baso % (Auto) 0.3, Absolute Neuts (auto) 13.1 H, Absolute Lymphs (auto) 0.94, Nucleated RBC % 0, Sodium 143, Potassium 4.3, Chloride 113 H, Carbon Dioxide 22.0, Anion Gap 8, BUN 31 H, Creatinine 0.84, Estim Creat Clear Calc 56.67, Est GFR (MDRD) Af Amer 83, Est GFR (MDRD) Non-Af 69, BUN/Creatinine Ratio 36.9 H, Glucose 80, Calcium 9.3, Total Bilirubin 0.80, AST 44 H, ALT 27, Alkaline Phosphatase 99, Total Protein 5.9 L, Albumin 2.2 L, Globulin 3.7, Albumin/Globulin Ratio 0.6 L 11/17/23 01:35: Vancomycin Trough 16.7 H 11/17/23 03:40: WBC 13.0 H, RBC 2.85 L, Hgb 8.6 L, Hct 29.2 L, MCV 102.5 H, MCH 30.2, MCHC 29.5 L, RDW Std Deviation 54.8 H, RDW Coeff of Sina 14.5, Plt Count 144 L, MPV 9.0, Immature Gran % (Auto) 0.600, Neut % (Auto) 82.8 H, Lymph % (Auto) 7.7 L, [place] % (Auto) 8.2, Eos % (Auto) 0.5, Baso % (Auto) 0.2, Absolute Neuts (auto) 10.8 H, Absolute Lymphs (auto) 1.00, Nucleated RBC % 0, Sodium 139, Potassium 3.8, Chloride 108 H, Carbon Dioxide 24.0, Anion Gap 7, BUN 19 H, Creatinine 0.68, Estim Creat Clear Calc 59.57, Est GFR (MDRD) Af Amer 105, Est GFR (MDRD) Non-Af 87, BUN/Creatinine Ratio 27.8 H, Glucose 74, Calcium 9.2 Micro: Microbiology 11/16/23 10:30 Urine, Random Legionella Antigen - Final 11/16/23 10:30 Urine, Random Streptococcus pneumoniae Antigen (M - Final 11/13/23 13:40 Urine, Catheterized Urine Culture - Final Culture exhibits no growth. 11/14/23 01:42 Stool Stool Occult Blood (DARREL) - Final Occult Blood Positive 11/13/23 13:22 Mucosa - Nasopharyngeal SARS-CoV-2, Influenza & RSV (PCR) - Final ABG Data ABG results: ABG 11/15/23 08:31 Specimen Type ART Sample Site R Radial pH 7.32 L Bicarbonate Actual 20.4 L Total CO2 22 Base Excess -6 L O2 Saturation 92 L O2 % 13.0 ABG pCO2 39.5 ABG pO2 70 L Theodore Test Positive O2 Delivery Device Cannula Vent Mode Not entered Radiography Diagnostic Testing: Radiology Impression Chest CTA 11/16/23 07:50 IMPRESSION: 1. No CTA evidence of pulmonary thromboemboli, thoracic aortic aneurysm or dissection. 2. Consolidation with air bronchograms in the superior segment of the right lower lobe and partial atelectasis with minimal air bronchograms in both posterior lung bases. These are new findings when compared to 01/14/2020. Electronically Signed: Deni Giordano MD at 9:04 EST , Rhythm Strip Rhythm Strip: Sinus Tach Rate: 126 Ectopy: None Physical Exam Const alert and no apparent distress Constitutional Narrative: Morbidly obese. General Appearance: cooperative HEENT normocephalic, head/scalp atraumatic and moist oral mucous membranes Eyes PERRL, EOMs intact bilaterally and conjunctivae normal Neck supple General: trachea midline Chest inspection of chest normal Resp normal respiratory effort Resp Narrative: Poor inspiratory effort Auscultation: rales and diminished lung sounds Cardio regular rate and regular rhythm GI normal to inspection, nondistended, normoactive bowel sounds Extremity no clubbing, cyanosis or edema Skin no rashes or lesions noted Neuro CN's II-XII intact bilaterally and no focal motor deficits Psych cooperative and affect normal Charges/Coding Visit Charges Inpatient E&M: 22780 Subs Hosp L3
[2023-11-17] MEDS: Furosemide 40 MG/4 ML Vial IV ×2 (08:47→17:12)
[2023-11-17] MEDS: Midodrine HCl 5 MG Tablet 10 MG PO ×3 (08:49→17:11)
[2023-11-17] MEDS: Miconazole Nitrate 43 GM Bottle 1 APPLIC TOPICAL (08:49)
[2023-11-17] MEDS: Menthol/Lanolin/Calamine/Znox 113 GM Tube 1 APPLIC TOPICAL ×4 (08:49→22:54)
[2023-11-17] MEDS: Vibegron 75 MG TABLET PO (08:50)
[2023-11-17] MEDS: sulfaSALAzine 500 MG Tablet 1000 MG PO ×2 (08:51→23:21)
[2023-11-17] MEDS: Psyllium 1 PACKET PO (08:52)
[2023-11-17] MEDS: Pantoprazole Sodium 40 MG in 0.9% Normal Saline (100mL MB+) 100 ML 330 MG IV ×2 (08:55→22:54)
[2023-11-17] MEDS: traMADol 50 MG Tablet PO ×2 (08:56→23:22)
--- NOTE | 2023-11-17 10:48 | PN.HOSP_ITS ---
Reason for Visit Reason for Visit: Diagnoses Sepsis, unspecified organism (11/13/23) Dehydration (11/13/23) Gastrointestinal hemorrhage, unspecified (11/13/23) Urinary tract infection, site not specified (11/13/23) Hypoxemia (11/13/23) Objective Data Objective Data Vital Signs: Vital Signs Temp Pulse Resp BP Pulse Ox O2 Del Method O2 Flow Rate 96.9 F L 103 H 19 H 111/57 L 92 Bi-pap 60 11/17/23 04:00 11/17/23 07:00 11/17/23 07:00 11/17/23 07:00 11/17/23 07:00 11/17/23 07:00 11/17/23 05:00 FiO2 70 11/17/23 07:00 Oxygen Flow Rate (L/min) 60 Oxygen Delivery Method Bi-pap Weight: 239 lb 13.807 oz Body Mass Index (BMI) 47.0 Intake & Output: Intake and Output for Last 24 Hours 11/15/23 11/16/23 11/17/23 23:59 23:59 23:59 Intake Total 2333.75 / 2333.75 1476.25 / 1716.25 555 / 555 Output Total 1250 / 1250 250 / 750 500 / 500 Balance 1083.75 / 1083.75 1226.25 / 966.25 55 / 55 Lab / Micro Data 11/17/23 03:40 11/17/23 03:40 Labs: Laboratory Results - last 24 hr 11/14/23 06:11: Vit D 1,25-Dihydroxy 17.3 L 11/17/23 01:35: Vancomycin Trough 16.7 H 11/17/23 03:40: WBC 13.0 H, RBC 2.85 L, Hgb 8.6 L, Hct 29.2 L, MCV 102.5 H, MCH 30.2, MCHC 29.5 L, RDW Std Deviation 54.8 H, RDW Coeff of Sina 14.5, Plt Count 144 L, MPV 9.0, Immature Gran % (Auto) 0.600, Neut % (Auto) 82.8 H, Lymph % (Au to) 7.7 L, V[place] % (Auto) 8.2, Eos % (Auto) 0.5, Baso % (Auto) 0.2, Absolute N euts (auto) 10.8 H, Absolute Lymphs (auto) 1.00, Nucleated RBC % 0, Sodium 139, Potassium 3.8, Chloride 108 H, Carbon Dioxide 24.0, Anion Gap 7, BUN 19 H, Creatinine 0.68, Estim Creat Clear Calc 59.57, Est GFR (MDRD) Af Amer 105, Est GFR (MDRD) Non-Af 87, BUN/Creatinine Ratio 27.8 H, Glucose 74, Calcium 9.2 Micro: Microbiology 11/16/23 10:30 Urine, Random Legionella Antigen - Final 11/16/23 10:30 Urine, Random Streptococcus pneumoniae Antigen (M - Final 11/13/23 13:40 Urine, Catheterized Urine Culture - Final Culture exhibits no growth. 11/14/23 01:42 Stool Stool Occult Blood (DARREL) - Final Occult Blood Positive 11/13/23 13:22 Mucosa - Nasopharyngeal SARS-CoV-2, Influenza & RSV (PCR) - Final Rhythm Strip Rhythm Strip: Sinus Tach Rate: 126 Ectopy: None Physical Exam Narrative Seen and examined. Overnight events d noticed. Afebrile. Heart rate in the low 100s. Sinus rhythm. Blood pressure 98/56. On high flow oxygen On Airvo. Feeling improvement. Physical exam: General: Alert, Oriented x3, Cooperative, morbid obesity BMI 45.7 kg/m? mild respiratory distress HEENT: Atraumatic, PERRLA, EOMI, Normocephalic Oral: No Gingival or Mucosal Lesions/ Ulcerations Neck: Supple, No JVD, Negative Carotid Bruits Lungs: Air entry diminished in bilateral lung bases. Bilateral coarse crepitations. On Airvo. Cardiovascular: Sinus tachycardia, Normal S1, Normal S2, No murmurs Abdomen: Bowel Sounds Present, Soft, Non Tender, Non-Distended : External urinary catheter. No dysuria. No renal angle tenderness. No suprapubic tenderness. Extremities: Mild, nonpitting pedal edema, fatty tissue, capillary Refill Less than 3 Seconds Skin: No rashes, No breakdown Musculoskeletal: No Tenderness to Palpation of Joints or Extremities ROM restricted. Degenerative arthritis. Neurological: Cranial nerves II-XII grossly intact, DTR 2+/4. No acute focal neurological deficit. Psych/Mental Status: Flat affect. Assessment & Plan Assessment/Plan (1) UTI (urinary tract infection): QUALIFIERS: Urinary tract infection type: site unspecified PLAN: Plan The patient is an 83 y/o F came to the ED for abdominal pain, cramping in nature in the right lower quadrant mild severity associated with nausea but no diarrhea melena or hematochezia. Patient did not had dysuria frequency, hematuria or urgency. Patient is being admitted in PCU. 1. Acute hypoxic respiratory failure, narrow complex tachycardia most likely SVT/accelerated junctional with hypotension: Last night patient oxygen requirement suddenly increased from baseline 5 L of oxygen to 30 L. Patient also sinus tachycardic fluctuating 110s to 130s. Admission EKG had showed sinus tachycardia with a ventricular rate of 126 and QT C of 425 ms. Repeat EKG done done last night showed markedly elevated QTc of 585 ms, sinus tachycardia. Albuterol was discontinued. Amitriptyline and duloxetine were held because of prolonged QT interval. Metoprolol XL increased from 25 mg to 50 mg daily. 1 dose IV Cardizem 20 mg given. Serum potassium 3.4, mild hypokalemia, hypomagn esia magnesium 1.5, phosphorus normal. Ionized calcium 4.78 normal. Correct electrolytes. Patient blood pressure was low 67/49 and 1 L of Ringer lactate ordered. Probably due to Cardizem. Blood pressure is recorded 119/60. Heart rate 104 per med. On high flow oxygen 13. Monitor EKG daily for prolonged QTc interval. 11/15 patient was found hypotensive last night and in the morning systolic 66. Similarly she was yesterday but responded to IV fluid Ringer lactate. Patient is mild short of breath but denies chest congestion, pressure tightness or wheezing. Mild tachypnea and sinus tachycardia. Patient not on antihypertensive medication. 1 L IV fluid Ringer lactate, ABG and BiPAP ord ered. Toolroom Clerk consulted and transferred to ICU. High flow oxygen. Patient has leukocytosis. Blood cultures x 2 ordered. Limited 2D echo was done. EF 60% no regional wall motion abnormality normal LV size. 11/16: Currently in sinus tachycardia. 11/17: Complain of fullness and tinnitus in left ear. Possible middle ear infection. Add Claritin. Patient already on IV antibiotics. Hypotension is corrected. 2. Sepsis, present on admission most likely due to the pneumonia: The patient presented with sepsis with clinical indicators tachycardia, tachypnea, hypoxia of due to pneumonia or probable UTI with acute sepsis-related organ dysfunction as evidenced by persistent hold for SBP less than 120 mmHg and acute hypoxic respiratory failure. IV to biotics was broadened yesterday vancomycin and Zosyn. On midodrine 10 mg 3 times daily. Urinary antigens are negative. Urine culture shows no growth. Did not require vasopressor yet. 11/17: Patient afebrile. Continue broad-spectrum antibiotic. On midodrine. 3.. Recent acute complicated UTI with concern for persistent infection: CT abdomen check patient has bilateral nonobstructing renal stones, largest in left renal pelvis. Patient on IV ceftriaxone. UA shows positive nitrite 1+ bacteria. Previous urine culture from 11/03/2023 is Klebsiella [id number] all sensitive but resistant to ampicillin. Urine culture shows no growth. 3. concern of GI bleed: Stool for occult blood positive. Patient baseline hemoglobin around 12 g. Admission hemoglobin 12.9/47.3% but dropped to 11.1. Since patient was hemoconcentrated therefore IV fluid of normal saline with KCl ordered. GI is consulted. On PPI. 11/15: Patient supposed to have EGD but canceled because of hypotension. 11/17: Patient oxygenation is better. Hypocalcemia ruled out: Admission CMP with calcium 10.6 and last noted prior to this 07/30/2023 8.5 mg/dL. Ionized calcium is normal 4.78. Serum phosphorus 3.6. #4. Lower abdominal cramping, discomfort, possibly related with UTI versus constipation: CT abdomen and pelvis with no acute finding #5. Chronic thrombocytopenia: Unclear exact etiology, admission platelets 307, previous baseline primarily 130-170s, however has vacillated, most recent prior 07/30/2023 platelet 140, continue to trend. #6. ASHANTI on chronic Kidney Disease Stage III, unclear subtype: Admission BUN/Cr 33/1.11, baseline renal function since 09/2022 primarily 0.8-1.1, repeat creatinine went up 1.77, BUN 66. Patient clinically looks dehydrated and was also hypotensive therefore 1 L IV fluid Ringer lactate given as mentioned above. 11/15: BUNs/creatinine better 57/1.14.CT abdomen shows bilateral nonobstructive renal stones largest in the left renal pelvis. #7. Hx VTE (DT, PE) with factor V Leiden: s/p IVCF placement, patient p reviously been on Coumadin now transition to Eliquis therapy, will continue pending evaluations as noted above with hold if concern verified for GI bleed component. #8. 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 Ulcerative colitis: continue patient home sulfasalazine chronic home regimen, not on any chronic steroids of note, encourage continued outpatient follow-up with gastroenterology. #10. Anxiety and depression: We will continue nightly amitriptyline as well as home duloxetine regimen. #11. Hypothyroidism: We will continue patient home levothyroxine regimen. #12. Hypertension: Patient was hypotensive in the morning. Hold antihypertensive medications. #13. Hyperlipidemia: l continue patient home statin therapy. #14. Restless leg syndrome: continue patient home pramipexole regimen. #15. Morbid Obesity: Weight loss and lifestyle changes encouraged. #16. Former tobacco use: Encourage continued tobacco cessation. #17. CHAI: BIPAP nightly. #18. DVT prophylaxis: If there is any drop in hemoglobin or the guaiac is positive we will immediately hold her eliquis, for now will continue as noted given stable Hgb, no overt evidence of GI bleed. #19. CODE status: Clinical update given to the patient's daughter Mrs. Grayson. Still wants to be full code. Discussed about the hypotension, GI bleed and ASHANTI and narrow complex tachycardia. Patient had coffee colored emesis as per the daughter 1 day before coming here. Charges/Coding Visit Charges Inpatient E&M: 30196 [facility] Hosp L3
[2023-11-17] MEDS: Vancomycin HCl 750 MG in 0.9% Normal Saline (250mL Bag) 250 ML 265 MG IV (13:15)
[2023-11-17] MEDS: Atorvastatin Calcium 20 MG Tablet PO (23:22)
[2023-11-17] MEDS: Pramipexole Di-HCl 0.5 MG Tablet 1.5 MG PO (23:22)
[2023-11-18] VITALS (42 sets, daily range): BP systolic 52–128; BP diastolic 32–96; PULSE 102–190; RESP 14–30; TEMP 36.1–37.4; O2SAT 88–98; BMI 45.8
[2023-11-18] MEDS: 0.9% Saline Lock 10 ML Syringe IV ×2 (03:19→04:48)
[2023-11-18] MEDS: Norepinephrine 8 MG in 0.9% Normal Saline (250mL Bag) 242 ML 9.40000000000000036 MG CONT INF (03:19)
--- NOTE | 2023-11-18 03:23 | EKG12_ITS ---
Test Reason : SVT Blood Pressure : / mmHG Vent. Rate : 164 BPM Atrial Rate : 164 BPM P-R Int : 164 ms QRS Dur : 072 ms QT Int : 238 ms P-R-T Axes : -14 023 189 degrees QTc Int : 393 ms Critical Test Result: High HR Sinus tachycardia Possible Inferior infarct , age undetermined Marked ST abnormality, possible lateral subendocardial injury Abnormal ECG No previous ECGs available Confirmed by LUISANA PALENCIA, MARLYS ([id number]), editor [employer]ASQUE[employer] ([id number]) on 11/19/2023 2:27:56 PM Referred By: RAUL Confirmed By:MARLYS LIEBERMAN MD
[2023-11-18] MEDS: Vancomycin HCl 750 MG in 0.9% Normal Saline (250mL Bag) 250 ML 250 MG IV ×2 (03:28→14:17)
[2023-11-18 03:43] LABS: Absolute Lymphocyte Count 1.28 X10^3/uL (0.83-4.51); Absolute Neutrophil Count 9.4 X10^3/uL (2.0-7.7); Basophil# 0.03 X10^3/uL; Basophil% 0.2 % (0-1); Eosinophil# 0.06 X10^3/uL; Eosinophils% 0.5 % (0-5); Hematocrit 32.7 % (37-47); Hemoglobin 10.4 g/dL (12.0-15.0); Lymphocyte # 1.28 X10^3/ul (0.83-4.51); Lymphocyte % 10.6 % (19-41); Mean Corp Hgb Conc 31.8 g/dL (32-36); Mean Corpuscular Hgb 31.1 pg (27.0-32.0); Mean Corpuscular Volume 97.9 fL (81-99); Mean Platelet Vol. 9.5 fl (6.2-12.0); Monocyte# 1.32 X10^3/uL; Monocyte% 10.9 % (0-10); NRBC Flagged by Analyzer 0 % (0-5); Neutrophil # 9.39 X10^3/uL (2.7-7.7); Neutrophil % 77.5 % (47-70); Platelet Count 156 K/mm3 (150-450); RBC Distribution Width CV 14.4 % (11.6-14.6); Red Blood Count 3.34 M/mm3 (4.2-5.4); White Blood Count 12.1 K/mm3 (4.4-11.0)
[2023-11-18 04:05] LABS: Anion Gap 11 (5-15); BUN 16 mg/dL (7-18); BUN/Creat Ratio 15.5 RATIO (10-20); Calcium,Total 9.2 mg/dL (8.5-10.1); Chloride 100 mmol/L (98-107); Creatinine, Serum 1.03 mg/dL (0.55-1.02); EST Glomerular Filtration Rate 54 mL/min (>60); Est Glom Filt Rate - Afr Amer 66 mL/min (>60); Estimated Creatinine Clearance 46.27 ml/min; Glucose 106 mg/dL (74-106); Potassium 3.2 mmol/L (3.5-5.1); Sodium Level 140 mmol/L (136-145)
[2023-11-18 04:07] LABS: Base Excess 1 mmol/L (-2 to +2); Bicarbonate 25.3 mmol/L (22-26); Blood Gas Specimen Type ART; Mode Not entered; O2 Delivery Device BiPAP; PEEP 12; PO2 86 mmHG (75-100); RR 14; SITE R Radial; SO2 97 % (95-99); Total Carbon Dioxide 26 mmol/L; pCO2 37.1 mmHg (35-45); pH 7.44 (7.35-7.45)
[2023-11-18] MEDS: Adenosine 6 MG/2 ML Syringe IV (04:10)
[2023-11-18] MEDS: Adenosine 6 MG/2 ML Syringe 12 MG IV (04:12)
--- NOTE | 2023-11-18 04:26 | PCM.HOSP.N ---
Hospitalist Note Patient noted to be tachycardic, with HR going up into the 160s and 170s and as high as the 190s. EKG done showed a sinus tachycardia. She was given a dose of adenosine 6mg x 1 at 4;10am, with no response. THis hospitalist was physically present at patient's bedside when amiodarone was given. Repeat dose of 12mg was given which only briefly slowed down patient's HR into the 80s and 90s; HR however rebounded up into the 130s and 140s. Patient had also been started on levophed drip due to persistent hypotension. Patient started on cardizem drip without bolus to help with persistent tachycardia.
[2023-11-18] MEDS: Diltiazem 125 MG in Dextrose 5%-Water (100mL Bag) 100 ML CONT INF (04:37)
--- NOTE | 2023-11-18 05:23 | PCM.PN.INT ---
Assessment & Plan Assessment/Plan (1) Sepsis: (2) Hypoxemia: PLAN: Plan RECOMMENDATIONS: 1. Wean FiO2 to maintain oxygen saturations at or above 90%. 2. Continue AVAPS therapy. 3. Continue Levophed to maintain a mean arterial pressure at or above 65 mmHg. 4. Check troponin and BNP. Obtain cardiology consultation. 5. Obtain follow-up chest x-ray. 6. Electrolyte repletion as ordered. 7. Continue broad-spectrum antimicrobials. 8. Continue PPI therapy as ordered. 9. Monitor blood counts and transfuse if hemoglobin drops below 7 g/dL. IMPRESSIONS: 1. Acute hypoxemic respiratory failure Chest imaging demonstrated findings concerning for pneumonia. As such, the patient's antimicrobials have been broadened. The patient reportedly utilizes only 2 L/min of supplemental oxygen on a nightly basis with her BiPAP. She is unaware of any pre-existing diagnosis of COPD, despite having Advair and albuterol on her outpatient MAR. The patient was previously on Eliquis, which remains on hold over concerns for occult blood positive stools. Continue current supportive measures. Continue PAP therapy as tolerated. Wean FiO2 for saturations greater than 90%. Continue antimicrobials. 2. Sepsis The patient presented to the hospital with sepsis due to probable UTI versus pneumonia with acute sepsis related organ dysfunction as evidenced by persistent hypotension with a MAP less than 65 and/or systolic blood pressure less than 90 mmHg. Continue broad-spectrum antimicrobials as ordered. Continue Levophed to maintain a mean arterial pressure at or above 65 mmHg. 3. Recurrent SVT Recommend cardiology consultation to assist with medical management. Check BNP and troponin. 4. Anemia The patient's hemoglobin is currently stable. There are no overt signs of any blood loss. The patient will be at high risk for further respiratory decompensation if she were to be taken for endoscopic evaluation at the present time. Therefore, recommend continue current supportive care and continuing PPI therapy as ordered. 5. 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 Continue BiPAP therapy with naps and nightly. Eliquis remains on hold on account of concerns for underlying GI bleeding. TIME: 35 minutes of critical care time, independent of procedures, was spent addressing the patient's respiratory failure, sepsis, SVT, anemia, review of all data and collaboration with care team. Subjective Subjective The patient was seen and examined at the bedside this morning. Events from the last 24 hours have been reviewed. The patient is currently afebrile, hemodynamically stable and maintaining appropriate oxygen saturations on AVAPS therapy. The patient is currently requiring Levophed at 5 mcg/min to maintain hemodynamic stability. The patient is currently documented to be overall net +7 L for the hospitalization. Hemoglobin is stable at 10.4 g/dL. ABG demonstrated a pH of 7.4 with a pCO2 of 37 and pO2 of 86. Potassium was low at 3.2 with a creatinine of 1.03. Overnight, the patient experienced a run of SVT. She did receive adenosine and was ultimately placed on a Cardizem infusion. Objective Data Objective Data The patient's most recent lab work, culture data and imaging studies have all been personally reviewed. Surface echocardiogram completed in November 2023 demonstrated normal LV size and function with an ejection fraction of 60%. Vital Signs: Vital Signs Temp Pulse Resp BP Pulse Ox O2 Del Method O2 Flow Rate 97.6 F L 190 H 29 H 110/70 93 Bi-pap 60 11/18/23 03:00 11/18/23 04:00 11/18/23 04:00 11/18/23 04:37 11/18/23 04:00 11/18/23 04:00 11/18/23 01:00 FiO2 80 11/18/23 04:00 Oxygen Flow Rate (L/min) 60 Oxygen Delivery Method Bi-pap Weight: 239 lb 13.807 oz Body Mass Index (BMI) 47.0 Intake & Output: Intake and Output for Last 24 Hours 11/16/23 11/17/23 11/18/23 23:59 23:59 23:59 Intake Total 1476.25 / 1716.25 1440 / 1440 323.77 / 323.77 Output Total 250 / 750 1450 / 1450 Balance 1226.25 / 966.25 -10 / -10 323.77 / 323.77 Lab / Micro Data Attestation: I reviewed the patient's lab results. 11/19/23 03:50 11/19/23 03:50 Labs: Laboratory Results - last 24 hr 11/18/23 03:30: WBC 12.1 H, RBC 3.34 L, Hgb 10.4 L, Hct 32.7 L, MCV 97.9, MCH 31.1, MCHC 31.8 L D, RDW Std Deviation 52.0 H, RDW Coeff of Sina 14.4, Plt Count 156, MPV 9.5, Immature Gran % (Auto) 0.300, Neut % (Auto) 77.5 H, Lymph % (Auto) 10.6 L, [place] % (Auto) 10.9 H, Eos % (Auto) 0.5, Baso % (Auto) 0.2, Absolute Neuts (auto) 9.4 H, Absolute Lymphs (auto) 1.28, Nucleated RBC % 0, Sodium 140, Potassium 3.2 L, Chloride 100, Carbon Dioxide 29.0, Anion Gap 11, BUN 16, Creatinine 1.03 H, Estim Creat Clear Calc 46.27, Est GFR (MDRD) Af Amer 66, Est GFR (MDRD) Non-Af 54 L, BUN/Creatinine Ratio 15.5, Glucose 106, Calcium 9.2 Micro: Microbiology 11/15/23 09:30 Blood Culture (Wb) - Pic Blood Culture - Preliminary No growth in 48 hours. 11/16/23 10:30 Urine, Random Legionella Antigen - Final 11/16/23 10:30 Urine, Random Streptococcus pneumoniae Antigen (M - Final 11/13/23 13:40 Urine, Catheterized Urine Culture - Final Culture exhibits no growth. 11/14/23 01:42 Stool Stool Occult Blood (DARREL) - Final Occult Blood Positive 11/13/23 13:22 Mucosa - Nasopharyngeal SARS-CoV-2, Influenza & RSV (PCR) - Final ABG Data ABG results: ABG 11/18/23 04:04 Specimen Type ART Sample Site R Radial pH 7.44 Bicarbonate Actual 25.3 Total CO2 26 Base Excess 1 O2 Saturation 97 O2 % 100.0 ABG pCO2 37.1 ABG pO2 86 Theodore Test N/A Respiration Rate 14 O2 Delivery Device BiPAP Vent Mode Not entered Tidal Volume 400.0 POC PEEP 12 Radiography Diagnostic Testing: Radiology Impression Chest CTA 11/16/23 07:50 IMPRESSION: 1. No CTA evidence of pulmonary thromboemboli, thoracic aortic aneurysm or dissection. 2. Consolidation with air bronchograms in the superior segment of the right lower lobe and partial atelectasis with minimal air bronchograms in both posterior lung bases. These are new findings when compared to 01/14/2020. Electronically Signed: Deni Giordano MD at 9:04 EST , Rhythm Strip Rhythm Strip: Sinus Tach Rate: 126 Ectopy: None Physical Exam Const alert Constitutional Narrative: Morbidly obese. Currently tolerating PAP therapy. General Appearance: cooperative HEENT normocephalic, head/scalp atraumatic and moist oral mucous membranes Eyes PERRL, EOMs intact bilaterally and conjunctivae normal Neck supple General: trachea midline Chest inspection of chest normal Resp Auscultation: rales and diminished lung sounds Cardio S1 normal heart sound and S2 normal heart sound Rate: tachycardic GI normal to inspection, nondistended, normoactive bowel sounds Extremity no clubbing, cyanosis or edema Skin no rashes or lesions noted Neuro CN's II-XII intact bilaterally and no focal motor deficits Psych Mood & Affect: flat affect Charges/Coding Procedures Hospitalists Procedures: 44492 Critical Care 1st Hr
[2023-11-18] MEDS: Piperacil/Tazobactam 3.375 GM in 0.9% Normal Saline (50mL MB+) 50 ML IV ×3 (05:40→20:59)
--- NOTE | 2023-11-18 05:45 | NURSING ---
0320- this RN in pt's room assessing and collecting labs when pt became tachycardic. HR in 180's. EKG done bedside by this RN showing ST, Dr. Radford notified. Pt's heart rate continued to be 180-190's pt in SVT, Dr. Radford contacted, this RN inquired about adenosine, Dr. Radford agreeable and stated to this RN on the phone to prepare to push 6 mg of adenosine. Brock Fontenot RN and Olesya, RT to bedside at 0405. Pt attached to monitor and defib pads. Access verified by this RN via NS flush. 0410 Dr. Radford gave verbal order to this RN to push 6 mg of adenosine, 6mg given by this RN, little to no rate change 0412 Dr. Radford gave verbal order to this RN to push 12 mg of adenosine, 12 mg given by this RN, pt HR to 140's verbal order given by Dr. Radford to start cardizem drip without bolus, Dr. Radford placed this order herself bedside.
--- NOTE | 2023-11-18 06:06 | RAD_ITS ---
INDICATION: SVT EXAMINATION/TECHNIQUE: X-RAY - AP view of chest COMPARISON: Chest x-ray from 11/15/2023 FINDINGS: LINES/DEVICES: Left PICC tip at upper SVC. LUNGS: Right greater than left mid to lower lung pulmonary opacities again noted, slightly worsening on the right. No sizable pleural effusion. No detectable pneumothorax. MEDIASTINUM AND CARDIOVASCULAR STRUCTURES: Heart size within normal limits for imaging technique. Prominent main pulmonary artery shadow. Atherosclerotic calcifications along aorta. BONES AND SOFT TISSUES: Skeletal degenerative changes. RAD/Chest 1 View (Portable) IMPRESSION: 1. Right worse than left bilateral pulmonary opacity changes 2. Evidence of pulmonary arterial hypertension Electronically Signed: Iban Gutierrez MD at 7:37 EST ,
[2023-11-18] MEDS: Potassium Chloride 20mEq/100mL 20 MEQ/100 ML IV.SOLN. 100 MEQ IV BOLUS ×2 (06:28→07:48)
[2023-11-18 06:48] LABS: Troponin-I HS 19 pg/mL (3.0-54.0)
[2023-11-18 07:41] LABS: BNP,B-Type NATRIURETIC PEPTIDE 140.1 pg/mL (0-100)
[2023-11-18] MEDS: Pantoprazole Sodium 40 MG in 0.9% Normal Saline (100mL MB+) 100 ML 330 MG IV ×2 (10:03→20:59)
[2023-11-18] MEDS: Menthol/Lanolin/Calamine/Znox 113 GM Tube 1 APPLIC TOPICAL ×4 (10:04→21:01)
[2023-11-18] MEDS: Miconazole Nitrate 43 GM Bottle 1 APPLIC TOPICAL (10:04)
--- NOTE | 2023-11-18 10:05 | PCM.CONS.C ---
Assessment & Plan Assessment/Plan (1) Paroxysmal SVT (supraventricular tachycardia): PLAN: She appears to have paroxysmal supraventricular tachycardia. It is not clear whether this is triggered in her supine position by mechanical irritation of the PICC line. I would recommend that we pull this line back 1 inch. In the meantime I will start her on intravenous amiodarone Discontinue the diltiazem Will continue to follow. (2) Essential hypertension: PLAN: Continue current medications with no changes. HPI Consult Data Date of Consult: 11/19/23 HPI Narrative HPI Narrative: OPAL SHIPLEY, is a 83 F who has been developing recurrent supraventricular tachyarrhythmias especially at night for whom we have been consulted. She presented to the hospital with abdominal cramping as well as stool discoloration and is being followed by the gastroenterology Service as well as the intensive care service. She does have a history of recurrent pulmonary emboli, hypertension, hyperlipidemia, diabetes mellitus, and obesity. She also has a previous history of mild pulmonary hypertension diagnosed following a right heart catheterization in 2019. Pulmonary artery systolic pressures were noted to be approximately 40 mmHg. From the cardiac standpoint she had been doing well with no previous rhythm problems. As part of her workup and therapy and treatment at this time she had a left-sided PICC line placed. It was noted to be in the upper part of the SVC. She had an echocardiogram performed which demonstrated preserved left ventricular systolic function consistent with her previous ejection fraction of 60%. Previous Holter monitoring has not demonstrated any significant rhythm abnormalities. Cardiac enzymes and troponin and natruretic peptide levels were essentially normal. Review of the rhythm strips demonstrated episodes of a narrow complex supraventricular tachycardia rhythmic disturbance. She does have a previous history of atrial fibrillation. [facility] Medical History (Updated 11/15/23 @ 12:[address] Eric Contreras, ) Asthma Atrial fibrillation BiPAP (biphasic positive airway pressure) dependence Carpal tunnel syndrome Chronic anticoagulation CKD (chronic kidney disease) COPD (chronic obstructive pulmonary disease) DVT (deep venous thrombosis) Essential hypertension Fracture of right radius GI bleed History of deep venous thrombosis History of pulmonary embolus (PE) (2008) History of ulcerative colitis Hyperlipidemia Hypertension Hypotension Morbid obesity On home oxygen therapy CHAI treated with BiPAP Presence of IVC filter Pulmonary fibrosis Restless leg syndrome RLS (restless legs syndrome) Secondary pulmonary arterial hypertension Thrombocytopenia Home Medications rosuvastatin 10 mg tablet 10 mg PO QHS CHOLESTEROL LOWERING 05/13/15 [History Last Taken 11/12/23] sulfasalazine 500 mg tablet 1,000 mg PO BID COLITIS 10/23/15 [History Last Taken 07/28/23] amitriptyline 100 mg tablet 100 mg PO QHS DEPRESSION 01/30/17 [History Last Taken 11/12/23] glucosamine HCl 500 mg-msm 83 mg-chondroitin 400 mg tablet 1 ea PO BID SUPPLEMENT 01/30/17 [History Last Taken 11/13/23] pramipexole 1.5 mg tablet 1.5 mg PO QHS restless legs 01/12/20 [History Last Taken 11/12/23] levothyroxine 175 mcg tablet 175 mcg PO DAILY 01/25/21 [History Last Taken 11/13/23] duloxetine 60 mg capsule,delayed release 60 mg PO Q OTHER DAY depression 07/27/22 [History Last Taken 11/13/23] mirabegron 50 mg tablet,extended release 24 hr (Myrbetriq) 50 mg PO DAILY 07/27/22 [History Last Taken 11/13/23] metoprolol succinate 25 mg tablet,extended release 24 hr 25 mg PO DAILY htn 04/10/23 [History Last Taken 11/13/23] melatonin 3 mg capsule 3 mg PO HS PRN insomnia 09/12/23 [History Last Taken 11/12/23] tramadol 50 mg tablet 50 mg PO BID 09/12/23 [History Last Taken 11/13/23] acetaminophen 325 mg tablet 650 mg PO TID 11/13/23 [History Last Taken 11/13/23] albuterol sulfate 2.5 mg/3 mL (0.083 %) solution for nebulization 2.5 mg inhalation Q6H PRN shortness of breath 11/13/23 [History Last Taken Unknown] apixaban 5 mg tablet (Eliquis) 5 mg PO BID 11/13/23 [History Last Taken 11/12/23] ciprofloxacin HCl 500 mg tablet 500 mg PO BID 11/13/23 [History Last Taken 11/13/23] d-mannose 500 mg capsule (AZO D-Mannose) 2,000 mg PO QHS UTI PREVENTION 11/13/23 [History Last Taken 11/12/23] fluticasone 100 mcg-salmeterol 50 mcg/dose blistr powdr for inhalation (Advair Diskus) 1 inh inhalation BID 11/13/23 [History Last Taken 11/13/23] ondansetron HCl 4 mg tablet 4 mg PO Q6H PRN nausea 11/13/23 [History Last Taken 11/12/23] Allergy/AdvReac Type Severity Reaction Status Date / Time erythromycin base Allergy Mild unknown Verified 09/19/23 14:50 aspirin [From Robaxisal] Allergy Unknown Verified 09/19/23 14:50 digoxin [From Lanoxin] Allergy Unknown Verified 09/19/23 14:50 etodolac [From Lodine] Allergy Unknown Verified 09/19/23 14:50 ibuprofen [From Motrin] Allergy Unknown Verified 09/19/23 14:50 meclizine HCl [From Antivert] Allergy Unknown Verified 09/19/23 14:50 meclofenamate sodium Allergy Unknown Verified 09/19/23 14:50 [From Meclomen] methocarbamol Allergy Unknown Verified 09/19/23 14:50 [From Robaxisal] nabumetone [From Relafen] Allergy Unknown Verified 09/19/23 14:50 naproxen Allergy Unknown Verified 09/19/23 14:50 sulfamethoxazole Allergy Unknown Verified 09/19/23 14:50 [From Bactrim] trimethoprim [From Bactrim] Allergy Unknown Verified 09/19/23 14:50 hydrocodone AdvReac Severe HALLUCINATI Verified 09/19/23 14:50 ONS Penicillins AdvReac Intermediate Diarrhea Verified 09/19/23 14:50 Family History Father Prostate cancer Brother Heart disease Mother Parkinsons disease Surgical History H/O colonoscopy H/O right heart catheterization (04/11/19) History of appendectomy History of basal cell carcinoma excision History of carpal tunnel surgery of right wrist History of cholecystectomy History of embolic filter insertion History of total left knee replacement (12/19/07) S/P appendectomy S/P cholecystectomy S/P Mohs surgery for basal cell carcinoma Status post total left knee replacement no surgical history Social History household members: none Smoking Status: Former smoker how long ago did patient quit smokin years ago alcohol intake: never substance use type: does not use caffeine: Yes Type: coffee Number of servings: 1 ROS Constitutional Constitutional: Denies fever(s) or weight loss Eyes Eyes: Reports systems reviewed and no addt'l complaints, except as documented ENT HEENT: Reports systems reviewed and no addt'l complaints, except as documented Cardiovascular Cardiovascular: Denies chest pain at rest, chest pain with activity, dyspnea at rest, dyspnea on exertion, edema, palpitations or paroxysmal nocturnal dyspnea Respiratory/Chest Respiratory/Chest: Denies dyspnea on exertion, productive cough, shortness of breath at rest or shortness of breath with exertion Gastrointestinal Gastrointestinal: Denies change in bowel habits, nausea, vomiting or weight changes Genitourinary Genitourinary: Denies difficulty urinating Musculoskeletal Musculoskeletal: Denies joint stiffness or muscle weakness Integumentary Integumentary: Denies lesions Neurologic Neurologic: Denies dizziness or syncope Psychiatric Psychiatric: Denies anxiety Endocrine Endocrinology: Denies excessive sweating or fatigue Hematologic/Lymphatic Hematologic/Lymphatic: Denies anemia Allergic/Immunologic Allergic/Immunologic: Denies seasonal rhinorrhea Risk Stratification Risk Stratification Applicable: No Positive Cardiac Marker: No Objective Data Vital Signs: Vital Signs Temp Pulse Resp BP Pulse Ox O2 Del Method O2 Flow Rate 97.1 F L 116 H 23 H 110/79 93 Bi-pap 60 11/18/23 08:00 11/18/23 08:30 11/18/23 08:30 11/18/23 08:30 11/18/23 08:30 11/18/23 08:30 11/18/23 01:00 FiO2 1,000 11/18/23 08:30 Oxygen Flow Rate (L/min) 60 Oxygen Delivery Method Bi-pap Weight: 233 lb 11.04 oz Body Mass Index (BMI) 45.8 Intake & Output: Intake and Output for Last 24 Hours 11/16/23 11/17/23 11/18/23 23:59 23:59 23:59 Intake Total 1476.25 / 1716.25 1440 / 1440 459.25 / 459.25 Output Total 250 / 750 1450 / 1450 10 Balance 1226.25 / 966.25 -10 / -10 449.25 / 449.25 Lab / Micro Data 11/19/23 03:50 11/19/23 03:50 Labs: Laboratory Results - last 24 hr 11/18/23 03:30: WBC 12.1 H, RBC 3.34 L, Hgb 10.4 L, Hct 32.7 L, MCV 97.9, MCH 31.1, MCHC 31.8 L D, RDW Std Deviation 52.0 H, RDW Coeff of Sina 14.4, Plt Count 156, MPV 9.5, Immature Gran % (Auto) 0.300, Neut % (Auto) 77.5 H, Lymph % (Auto) 10.6 L, [place] % (Auto) 10.9 H, Eos % (Auto) 0.5, Baso % (Auto) 0.2, Absolute Neuts (auto) 9.4 H, Absolute Lymphs (auto) 1.28, Nucleated RBC % 0, Sodium 140, Potassium 3.2 L, Chloride 100, Carbon Dioxide 29.0, Anion Gap 11, BUN 16, Creatinine 1.03 H, Estim Creat Clear Calc 46.27, Est GFR (MDRD) Af Amer 66, Est GFR (MDRD) Non-Af 54 L, BUN/Creatinine Ratio 15.5, Glucose 106, Calcium 9.2, Troponin I High Sens 19, B-Natriuretic Peptide 140.1 H Micro: Microbiology 11/15/23 09:30 Blood Culture (Wb) - Pic Blood Culture - Preliminary No growth in 48 hours. ABG Data ABG results: ABG 11/18/23 04:04 Specimen Type ART Sample Site R Radial pH 7.44 Bicarbonate Actual 25.3 Total CO2 26 Base Excess 1 O2 Saturation 97 O2 % 100.0 ABG pCO2 37.1 ABG pO2 86 Theodore Test N/A Respiration Rate 14 O2 Delivery Device BiPAP Vent Mode Not entered Tidal Volume 400.0 POC PEEP 12 Rhythm Strip Rhythm Strip: Sinus Tach Rate: 126 Ectopy: None Cardiology Labs/Tests 11/18/23 03:30: WBC 12.1 H, RBC 3.34 L, Hgb 10.4 L, Hct 32.7 L, MCV 97.9, MCH 31.1, MCHC 31.8 L D, Plt Count 156, MPV 9.5, Immature Gran % (Auto) 0.300, Neut % (Auto) 77.5 H, Lymph % (Auto) 10.6 L, [place] % (Auto) 10.9 H, Eos % (Auto) 0.5, Baso % (Auto) 0.2, Absolute Neuts (auto) 9.4 H, Nucleated RBC % 0, Sodium 140, Potassium 3.2 L, Chloride 100, Carbon Dioxide 29.0, Anion Gap 11, BUN 16, Creatinine 1.03 H, Est GFR (MDRD) Af Amer 66, Est GFR (MDRD) Non-Af 54 L, BUN/Creatinine Ratio 15.5, Glucose 106, Calcium 9.2, B-Natriuretic Peptide 140.1 H 11/18/23 04:04: pH 7.44, Bicarbonate Actual 25.3, Base Excess 1, O2 Saturation 97, ABG pCO2 37.1, ABG pO2 86, Theodore Test N/A Rhythm: EKG: ECHO: Stress Test: Cardiac Cath: PCI: CT Surgery: Holter monitor: EPS: PPM: CXR: Chest CT Scan: Radiography Diagnostic Testing: Radiology Impression Chest X-Ray 11/18/23 06:06 IMPRESSION: 1. Right worse than left bilateral pulmonary opacity changes 2. Evidence of pulmonary arterial hypertension Electronically Signed: Iban Gutierrez MD at 7:37 EST ,
--- NOTE | 2023-11-18 11:11 | PN.HOSP_ITS ---
Reason for Visit Reason for Visit: Diagnoses Sepsis, unspecified organism (11/13/23) Dehydration (11/13/23) Gastrointestinal hemorrhage, unspecified (11/13/23) Urinary tract infection, site not specified (11/13/23) Hypoxemia (11/13/23) Objective Data Objective Data Vital Signs: Vital Signs Temp Pulse Resp BP Pulse Ox O2 Del Method O2 Flow Rate 97.1 F L 116 H 23 H 110/79 93 Bi-pap 60 11/18/23 08:00 11/18/23 08:30 11/18/23 08:30 11/18/23 08:30 11/18/23 08:30 11/18/23 08:30 11/18/23 01:00 FiO2 1,000 11/18/23 08:30 Oxygen Flow Rate (L/min) 60 Oxygen Delivery Method Bi-pap Weight: 233 lb 11.04 oz Body Mass Index (BMI) 45.8 Intake & Output: Intake and Output for Last 24 Hours 11/16/23 11/17/23 11/18/23 23:59 23:59 23:59 Intake Total 1476.25 / 1716.25 1440 / 1440 609.25 / 609.25 Output Total 250 / 750 1450 / 1450 10 / 10 Balance 1226.25 / 966.25 -10 / -10 599.25 / 599.25 Lab / Micro Data 11/18/23 03:30 11/18/23 03:30 Labs: Laboratory Results - last 24 hr 11/18/23 03:30: WBC 12.1 H, RBC 3.34 L, Hgb 10.4 L, Hct 32.7 L, MCV 97.9, MCH 31.1, MCHC 31.8 L D, RDW Std Deviation 52.0 H, RDW Coeff of Sina 14.4, Plt Count 156, MPV 9.5, Immature Gran % (Auto) 0.300, Neut % (Auto) 77.5 H, Lymph % (Auto) 10.6 L, Placer % (Auto) 10.9 H, Eos % (Auto) 0.5, Baso % (Auto) 0.2, Absolute Neuts (auto) 9.4 H, Absolute Lymphs (auto) 1.28, Nucleated RBC % 0 Sodium 140, Potassium 3.2 L, Chloride 100, Carbon Dioxide 29.0, Anion Gap 11, BUN 16, Creatinine 1.03 H, Estim Creat Clear Calc 46.27, Est GFR (MDRD) Af Amer 66, Est GFR (MDRD) Non-Af 54 L, BUN/Creatinine Ratio 15.5, Glucose 106, Calcium 9.2, Troponin I High Sens 19, B-Natriuretic Peptide 140.1 H Micro: Microbiology 11/15/23 09:30 Blood Culture (Wb) - Pic Blood Culture - Preliminary No growth in 48 hours. 11/16/23 10:30 Urine, Random Legionella Antigen - Final 11/16/23 10:30 Urine, Random Streptococcus pneumoniae Antigen (M - Final 11/13/23 13:40 Urine, Catheterized Urine Culture - Final Culture exhibits no growth. 11/14/23 01:42 Stool Stool Occult Blood (DARREL) - Final Occult Blood Positive 11/13/23 13:22 Mucosa - Nasopharyngeal SARS-CoV-2, Influenza & RSV (PCR) - Final ABG Data ABG results: ABG 11/18/23 04:04 Specimen Type ART Sample Site R Radial pH 7.44 Bicarbonate Actual 25.3 Total CO2 26 Base Excess 1 O2 Saturation 97 O2 % 100.0 ABG pCO2 37.1 ABG pO2 86 Theodore Test N/A Respiration Rate 14 O2 Delivery Device BiPAP Vent Mode Not entered Tidal Volume 400.0 POC PEEP 12 Radiography Diagnostic Testing: Radiology Impression Chest X-Ray 11/18/23 06:06 IMPRESSION: 1. Right worse than left bilateral pulmonary opacity changes 2. Evidence of pulmonary arterial hypertension Electronically Signed: Iban Gutierrez MD at 7:37 EST , Rhythm Strip Rhythm Strip: Sinus Tach Rate: 126 Ectopy: None Physical Exam Narrative Seen and examined. Overnight events noticed. Afebrile. Patient went into SVT at no send was given x 2 and then put on Cardizem infusion drip. Later patient was seen by public service representative and recommended to discontinue Cardizem infusion and start on a miodarone IV infusion. Heart rate in 1 teens. On IV vasopressor. Patient on 100% FiO2 BiPAP. Patient respiratory status went worse compared to yesterday. Physical exam: General: Alert, Cooperative, morbid obesity BMI 45.7 kg/m? HEENT: Atraumatic, PERRLA, EOMI, Normocephalic Oral: On BiPAP 100% FiO2 Neck: Supple, No JVD, Negative Carotid Bruits Lungs: Air entry diminished in bilateral lung bases. Bilateral coarse crepitations. Cardiovascular: Sinus tachycardia, Normal S1, Normal S2, No murmurs Abdomen: Bowel Sounds Present, Soft, Non Tender, Non-Distended : Kim catheter inserted on 11/18. No dysuria. No renal angle tenderness. No suprapubic tenderness. Extremities: Mild, nonpitting pedal edema, fatty tissue, capillary Refill Less than 3 Seconds Skin: No rashes, No breakdown Musculoskeletal: No Tenderness to Palpation of Joints or Extremities ROM restricted. Degenerative arthritis. Neurological: Cranial nerves II-XII grossly intact, DTR 2+/4. No acute focal neurological deficit. Psych/Mental Status: Flat affect. Assessment & Plan Assessment/Plan (1) UTI (urinary tract infection): QUALIFIERS: Urinary tract infection type: site unspecified PLAN: Plan The patient is an 83 y/o F came to the ED for abdominal pain, cramping in nature in the right lower quadrant mild severity associated with nausea but no diarrhea melena or hematochezia. Patient did not had dysuria frequency, hematuria or urgency. Patient is being admitted in PCU. 1. Acute hypoxic respiratory failure, narrow complex tachycardia most likely SVT/accelerated junctional with hypotension: Last night patient oxygen requirement suddenly increased from baseline 5 L of oxygen to 30 L. Patient also sinus tachycardic fluctuating 110s to 130s. Admission EKG had showed sinus tachycardia with a ventricular rate of 126 and QT C of 425 ms. Repeat EKG done done last night showed markedly elevated QTc of 585 ms, sinus tachycardia. Albuterol was discontinued. Amitriptyline and duloxetine were held because of prolonged QT interval. Metoprolol XL increased from 25 mg to 50 mg daily. 1 dose IV Cardizem 20 mg given. Serum potassium 3.4, mild hypokalemia, hypomagnesia magnesium 1.5, phosphorus normal. Ionized calcium 4.78 normal. Correct electrolytes. Patient blood pressure was low 67/49 and 1 L of Ringer lactate ordered. Proba darling due to Cardizem. Blood pressure is recorded 119/60. Heart rate 104 per med. On high flow oxygen 13. Monitor EKG daily for prolonged QTc interval. 11/15 patient was found hypotensive last night and in the morning systolic 66. Similarly she was yesterday but responded to IV fluid Ringer lactate. Patient is mild short of breath but denies chest congestion, pressure tightness or wheezing. Mild tachypnea and sinus tachycardia. Patient not on antihypertensive medication. 1 L IV fluid Ringer lactate, ABG and BiPAP ordered. Cabinet Worker consulted and transferred to ICU. High flow oxygen. Patient has leukocytosis. Blood cultures x 2 ordered. Limited 2D echo was done. EF 60% no regional wall motion abnormality normal LV size. 11/16: Currently in sinus tachycardia. 11/17: Complain of fullness and tinnitus in left ear. Possible middle ear infection. Add Claritin. Patient already on IV antibiotics. Hypotension is corrected. 11/18: Patient on 100% FiO2 BiPAP. Respiratory status worse. I called patient next to kin Mrs. Grayson and gave clinical update that patient is doing worse than before. She is on maximum limit of BiPAP and if it gets worse neck step will be intubation/ventilator as she is still full code. I also talked about the PSVT and seen by public service representative and on amiodarone drip. She will be coming shortly and see the patient and decide about the CODE STATUS. PSVT: As per cardiology note patient has history of right-sided heart cath in 2019 which showed 40 mmHg at that time. She has not had previous rhythm problem in the past. Has previous history of A-fib. As mentioned above, patient was given adenosine x 2 to break SVT and then put on Cardizem drip which was changed to amiodarone infusion as recommended by public service representative. It also seems that PICC line might have triggered SVT therefore recommended to pull 1 inch back. 2. Sepsis, shock present on admission most likely due to the pneumonia: The patient presented with sepsis with clinical indicators tachycardia, tachypnea, hypoxia of due to pneumonia or probable UTI with acute sepsis-related organ dysfunction as evidenced by persistent hold for SBP less than 120 mmHg and acute hypoxic respiratory failure. IV to biotics was broadened yesterday vancomycin and Zosyn. On midodrine 10 mg 3 times daily. Urinary antigens are negative. Urine culture shows no growth. Did not require vasopressor yet. 1/13: Patient afebrile. Continue broad-spectrum antibiotic. On midodrine. 11/18 patient remained on IV broad-spectrum antibiotic. On midodrine and Levophed drip was started yesterday. Patient requires IV pressor therefore qualifies in the definition of septic shock. 3.. Recent acute complicated UTI with concern for persistent infection: CT abdomen check patient has bilateral nonobstructing renal stones, largest in left renal pelvis. Patient on IV ceftriaxone. UA shows positive nitrite 1+ bacteria. Previous urine culture from 11/03/2023 is Klebsiella [id number] all sensitive but resistant to ampicillin. Urine culture shows no growth. 3. concern of GI bleed: Stool for occult blood positive. Patient baseline hemoglobin around 12 g. Admission hemoglobin 12.9/47.3% but dropped to 11.1. Since patient was hemoconcentrated therefore IV fluid of normal saline with KCl ordered. GI is consulted. On PPI. 11/15: Patient supposed to have EGD but canceled because of hypotension. 11/17: Patient oxygenation is better. Hypocalcemia ruled out: Admission CMP with calcium 10.6 and last noted prior to this 07/30/2023 8.5 mg/dL. Ionized calcium is normal 4.78. Serum phosphorus 3. 6. #4. Lower abdominal cramping, discomfort, possibly related with UTI versus constipation: CT abdomen and pelvis with no acute finding #5. Chronic thrombocytopenia: Unclear exact etiology, admission platelets 307, previous baseline primarily 130-170s, however has vacillated, most recent prior 07/30/2023 platelet 140, continue to trend. #6. ASHANTI on chronic Kidney Disease Stage III, unclear subtype: Admission BUN/Cr 33/1.11, baseline renal function since 09/2022 primarily 0.8-1.1, repeat cre atinine went up 1.77, BUN 66. Patient clinically looks dehydrated and was also hypotensive therefore 1 L IV fluid Ringer lactate given as mentioned above. 11/15: BUNs/creatinine better 57/1.14.CT abdomen shows bilateral nonobstructive renal stones largest in the left renal pelvis. #7. Hx VTE (DT, PE) with factor V Leiden: s/p IVCF placement, patient previously been on Coumadin now transition to Eliquis therapy, will continue pending evaluations as noted above with hold if concern verified for GI bleed component. #8. 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 Ulcerative colitis: continue patient home sulfasalazine chronic home regimen, not on any chronic steroids of note, encourage continued outpatient follow-up with gastroenterology. #10. Anxiety and depression: We will continue nightly amitriptyline as well as home duloxetine regimen. #11. Hypothyroidism: We will continue patient home levothyroxine regimen. #12. Hypertension: Patient was hypotensive in the morning. Hold antihypertensive medications. #13. Hyperlipidemia: l continue patient home statin therapy. #14. Restless leg syndrome: continue patient home pramipexole regimen. #15. Morbid Obesity: Weight loss and lifestyle changes encouraged. #16. Former tobacco use: Encourage continued tobacco cessation. #17. CHAI: BIPAP nightly. #18. DVT prophylaxis: If there is any drop in hemoglobin or the guaiac is positive we will immediately hold her eliquis, for now will continue as noted given stable Hgb, no overt evidence of GI bleed. #19. CODE status: Clinical update given to the patient's daughter Mrs. Grayson. Still wants to be full code. Discussed about the hypotension, GI bleed and ASHANTI and narrow complex tachycardia. Patient had coffee colored emesis as per the daughter 1 day before coming here. Charges/Coding Visit Charges Inpatient E&M: 96682 Subs Hosp L3
[2023-11-18] MEDS: Amiodarone 150 MG in Dextrose 5%-Water (100mL Bag) 100 ML 600 MG IV BOLUS (11:49)
[2023-11-18] MEDS: Amiodarone 360 MG in Dextrose 5% Viaflo Bag 192.8 ML 33.2999999999999972 MG CONT INF (12:04)
--- NOTE | 2023-11-18 12:58 | PN.HOSP_ITS ---
Hospitalist Note Patient living will sign from 2007 was found. She states clearly that when N- terminal does state, she does not want intubation, CPR, no artificial nutrition or kept alive on machines. This was explained to the patient and she agrees. I gave the option of DNR CC arrest and DNR CC, difference being BiPAP and pressors as DNR CC arrest but DNR CC is no pressors, just oxygen mask nonrebreather. For now she decided for DNR CC arrest with no intubation. CODE STATUS changed.
[2023-11-18] MEDS: Midodrine HCl 5 MG Tablet 10 MG PO (17:31)
[2023-11-18] MEDS: Acetaminophen 325 MG Tablet 650 MG PO (18:41)
[2023-11-18] MEDS: Amiodarone 360 MG in Dextrose 5% Viaflo Bag 192.8 ML 16.6999999999999993 MG CONT INF (18:44)
[2023-11-18 20:49] LABS: Magnesium 1.1 mg/dL (1.6-2.6); Phosphorus 3.2 mg/dL (2.5-4.9)
[2023-11-18] MEDS: traMADol 50 MG Tablet PO (21:00)
[2023-11-18] MEDS: Potassium Chloride Oral Tablet 20 MEQ 40 MEQ PO (21:01)
[2023-11-18] MEDS: sulfaSALAzine 500 MG Tablet 1000 MG PO (21:02)
[2023-11-18] MEDS: Atorvastatin Calcium 20 MG Tablet PO (21:03)
[2023-11-18] MEDS: Pramipexole Di-HCl 0.5 MG Tablet 1.5 MG PO (21:03)
[2023-11-18] MEDS: Magnesium Sulfate 4gm/100mL 4 GM/100 ML IV.SOLN. IV (22:06)
[2023-11-19] VITALS (32 sets, daily range): BP systolic 83–117; BP diastolic 47–91; PULSE 62–109; RESP 12–36; TEMP 36.3–37.4; O2SAT 80–96; BMI 45.8
[2023-11-19] MEDS: Vancomycin Trough/Random Due 1 LAB MC (00:40)
--- NOTE | 2023-11-19 01:54 | PCM.RX.CS ---
Consult Antibiotic Management Pharmacy has been consulted to manage selected antibiotic: Vancomycin Type of Intervention Type of Consult: Follow-up Labs Labs: Sodium 140 mmol/L (136-145) 11/18/23 03:30 Potassium 3.2 mmol/L (3.5-5.1) L 11/18/23 03:30 Chloride 100 mmol/L (98-107) 11/18/23 03:30 Carbon Dioxide 29.0 mmol/L (21.0-32.0) 11/18/23 03:30 Anion Gap 11 (5-15) 11/18/23 03:30 BUN 16 mg/dL (7-18) 11/18/23 03:30 Creatinine 1.03 mg/dL (0.55-1.02) H 11/18/23 03:30 Est GFR (MDRD) Af Amer 66 mL/min (>60) 11/18/23 03:30 Est GFR (MDRD) Non-Af 54 mL/min (>60) L 11/18/23 03:30 BUN/Creatinine Ratio 15.5 RATIO (10-20) 11/18/23 03:30 Glucose 106 mg/dL (74-106) 11/18/23 03:30 Vancomycin Trough 24.0 ug/mL (5.0-15.0) H 11/19/23 00:18 Microbiology Microbiology: Microbiology 11/15/23 09:30 Blood Culture (Wb) - Pic Blood Culture - Preliminary No growth in 48 hours. 11/16/23 10:30 Urine, Random Legionella Antigen - Final 11/16/23 10:30 Urine, Random Streptococcus pneumoniae Antigen (M - Final 11/13/23 13:40 Urine, Catheterized Urine Culture - Final Culture exhibits no growth. 11/14/23 01:42 Stool Stool Occult Blood (DARREL) - Final Occult Blood Positive 11/13/23 13:22 Mucosa - Nasopharyngeal SARS-CoV-2, Influenza & RSV (PCR) - Final Goal Trough Goal Trough: 15-20 mcg/mL Pharmacy Plan for Drug Dosing Pharmacy Plan for Drug Dosing: Pharmacy Service will continue to monitor and adjust dosing as required. TROUGH 24 @ 10 HOURS. HOLD DOSE AND DRAW RANDOM LEVEL IN 12 HOURS Follow-Up Labs Follow-Up Labs: Trough: Vancomycin Date/Time Labs Ordered Labs to be done on [date and time ordered]: 11/19 @ 1330
[2023-11-19 03:58] LABS: Absolute Lymphocyte Count 1.21 X10^3/uL (0.83-4.51); Absolute Neutrophil Count 11.2 X10^3/uL (2.0-7.7); Basophil# 0.08 X10^3/uL; Basophil% 0.6 % (0-1); Eosinophil# 0.08 X10^3/uL; Eosinophils% 0.6 % (0-5); Hematocrit 30.3 % (37-47); Hemoglobin 9.2 g/dL (12.0-15.0); Lymphocyte # 1.21 X10^3/ul (0.83-4.51); Lymphocyte % 8.6 % (19-41); Mean Corp Hgb Conc 30.4 g/dL (32-36); Mean Corpuscular Hgb 30.1 pg (27.0-32.0); Mean Platelet Vol. 9.3 fl (6.2-12.0); Monocyte# 1.34 X10^3/uL; Monocyte% 9.6 % (0-10); NRBC Flagged by Analyzer 0 % (0-5); Neutrophil # 11.17 X10^3/uL (2.7-7.7); Neutrophil % 79.7 % (47-70); Platelet Count 162 K/mm3 (150-450); RBC Distribution Width CV 14.6 % (11.6-14.6); Red Blood Count 3.06 M/mm3 (4.2-5.4)
[2023-11-19 04:19] LABS: Anion Gap 11 (5-15); BUN 22 mg/dL (7-18); BUN/Creat Ratio 11.8 RATIO (10-20); Calcium,Total 8.7 mg/dL (8.5-10.1); Chloride 96 mmol/L (98-107); Creatinine, Serum 1.87 mg/dL (0.55-1.02); EST Glomerular Filtration Rate 27 mL/min (>60); Est Glom Filt Rate - Afr Amer 33 mL/min (>60); Estimated Creatinine Clearance 25.08 ml/min; Glucose 301 mg/dL (74-106); Magnesium 2.4 mg/dL (1.6-2.6); Phosphorus 3.9 mg/dL (2.5-4.9); Potassium 4.1 mmol/L (3.5-5.1); Sodium Level 132 mmol/L (136-145)
[2023-11-19] MEDS: Levothyroxine 175 MCG Tablet PO (05:22)
[2023-11-19] MEDS: Piperacil/Tazobactam 3.375 GM in 0.9% Normal Saline (50mL MB+) 50 ML IV ×3 (05:22→20:30)
[2023-11-19] MEDS: Amiodarone 360 MG in Dextrose 5% Viaflo Bag 192.8 ML 16.6999999999999993 MG CONT INF ×2 (06:00→16:33)
[2023-11-19] MEDS: 0.9% Saline Lock 10 ML Syringe IV ×3 (06:06→20:44)
--- NOTE | 2023-11-19 06:19 | PN.CC_ITS ---
Assessment & Plan Assessment/Plan (1) Sepsis: (2) Hypoxemia: PLAN: Plan RECOMMENDATIONS: 1. Wean FiO2 to maintain oxygen saturations at or above 90%. 2. Continue AVAPS therapy with naps and nightly. 3. Continue Levophed to maintain a mean arterial pressure at or above 65 mmHg. 4. Despite vasopressor support, will attempt gentle diuresis, given tenuous respiratory status. 5. Continue midodrine as scheduled. 6. Continue amiodarone therapy. 7. Continue broad-spectrum antimicrobials. 8. Continue PPI therapy as ordered. 9. Monitor blood counts and transfuse if hemoglobin drops below 7 g/dL. IMPRESSIONS: 1. Acute hypoxemic respiratory failure Chest imaging demonstrated findings concerning for pneumonia. The patient r emains on broad-spectrum antimicrobials. The patient reportedly utilizes only 2 L/min of supplemental oxygen on a nightly basis with her BiPAP. She is unaware of any pre-existing diagnosis of COPD, despite having Advair and albuterol on her outpatient MAR. The patient was previously on Eliquis, which remains on hold over concerns for occult blood positive stools. Continue current supportive measures. Continue heated high flow oxygen throughout the day and PAP therapy, at a minimum, on a nightly basis. Continue to wean FiO2 for saturations greater than 90%. Continue aggressive medical management of SVT and volume status. 2. Septic Shock The patient presented to the hospital with sepsis due to probable UTI versus pneumonia with acute sepsis related organ dysfunction as evidenced by persistent hypotension with a MAP less than 65 and/or systolic blood pressure less than 90 mmHg. Continue broad-spectrum antimicrobials as ordered. Continue Levophed to maintain a mean arterial pressure at or above 65 mmHg. 3. Recurrent SVT Cardiology is currently following. Continue amiodarone as ordered. 4. Anemia The patient's hemoglobin is currently stable. There are no overt signs of any blood loss. The patient will be at high risk for further respiratory decompensation if she were to be taken for endoscopic evaluation at the present time. Therefore, recommend continue current supportive care and continuing PPI therapy as ordered. 5. 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 Continue BiPAP therapy with naps and nightly. Eliquis remains on hold on account of concerns for underlying GI bleeding. TIME: 33 minutes of critical care time, independent of procedures, was spent addressing the patient's respiratory failure, sepsis, SVT, anemia, review of all data and collaboration with care team. Subjective Subjective The patient was seen and examined at the bedside this morning. Events from the last 24 hours have been reviewed. The patient remains on heated high flow oxygen with a flow rate of 60 L/min and FiO2 of 90%. She remains on Levophed at 2 mcg/min to maintain hemodynamic stability. The patient's Cardizem was discontinued yesterday and she was transition to amiodarone. She is currently documented to be overall net +8.5 L for the hospitalization. White count remains elevated at 14,000. Creatinine has increased to 1.87. Potassium and magnesium are within normal limits. Objective Data Objective Data The patient's most recent lab work, culture data and imaging studies have all been personally reviewed. Surface echocardiogram completed in November 2023 demonstrated normal LV size and function with an ejection fraction of 60%. Vital Signs: Vital Signs Temp Pulse Resp BP Pulse Ox O2 Del Method O2 Flow Rate 98.9 F 103 H 24 H 90/56 L 92 Airvo 60 11/19/23 06:00 11/19/23 05:00 11/19/23 05:00 11/19/23 06:00 11/19/23 05:00 11/19/23 05:00 11/19/23 05:00 FiO2 89 11/19/23 04:26 Oxygen Flow Rate (L/min) 60 Oxygen Delivery Method Airvo Weight: 233 lb 7.512 oz Body Mass Index (BMI) 45.8 Intake & Output: Intake and Output for Last 24 Hours 11/17/23 11/18/23 11/19/23 23:59 23:59 23:59 Intake Total 1440 / 1440 1678.27 / 1902.07 876.66 / 876.66 Output Total 1450 / 1450 610 / 610 200 / 200 Balance -10 / -10 1068.27 / 1292.07 676.66 / 676.66 Lab / Micro Data Attestation: I reviewed the patient's lab results. 11/19/23 03:50 11/19/23 03:50 Labs: Laboratory Results - last 24 hr 11/18/23 03:30: Troponin I High Sens 19, B-Natriuretic Peptide 140.1 H 11/18/23 20:23: Phosphorus 3.2, Magnesium 1.1 L 11/19/23 00:18: Vancomycin Trough 24.0 H 11/19/23 03:50: WBC 14.0 H, RBC 3.06 L, Hgb 9.2 L, Hct 30.3 L, MCV 99.0, MCH 30.1, MCHC 30.4 L, RDW Std Deviation 53.0 H, RDW Coeff of Sina 14.6, Plt Count 162, MPV 9.3, Immature Gran % (Auto) 0.900, Neut % (Auto) 79.7 H, Lymph % (Auto) 8.6 L, Garvin % (Auto) 9.6, Eos % (Auto) 0.6, Baso % (Auto) 0.6, Absolute Neuts (auto) 11.2 H, Absolute Lymphs (auto) 1.21, Nucleated RBC % 0, Sodium 132 L, Potassium 4.1, Chloride 96 L, Carbon Dioxide 25.0, Anion Gap 11, BUN 22 H, Creatinine 1.87 H, Estim Creat Clear Calc 25.08, Est GFR (MDRD) Af Amer 33 L, Est GFR (MDRD) Non-Af 27 L, BUN/Creatinine Ratio 11.8, Glucose 301 H, Calcium 8.7, Phosphorus 3.9, Magnesium 2.4 Micro: Microbiology 11/15/23 09:30 Blood Culture (Wb) - Pic Blood Culture - Preliminary No growth in 48 hours. 11/16/23 10:30 Urine, Random Legionella Antigen - Final 11/16/23 10:30 Urine, Random Streptococcus pneumoniae Antigen (M - Final 11/13/23 13:40 Urine, Catheterized Urine Culture - Final Culture exhibits no growth. 11/14/23 01:42 Stool Stool Occult Blood (DARREL) - Final Occult Blood Positive 11/13/23 13:22 Mucosa - Nasopharyngeal SARS-CoV-2, Influenza & RSV (PCR) - Final ABG Data ABG results: ABG 11/18/23 04:04 Specimen Type ART Sample Site R Radial pH 7.44 Bicarbonate Actual 25.3 Total CO2 26 Base Excess 1 O2 Saturation 97 O2 % 100.0 ABG pCO2 37.1 ABG pO2 86 Theodore Test N/A Respiration Rate 14 O2 Delivery Device BiPAP Vent Mode Not entered Tidal Volume 400.0 POC PEEP 12 Radiography Diagnostic Testing: Radiology Impression Chest X-Ray 11/18/23 06:06 IMPRESSION: 1. Right worse than left bilateral pulmonary opacity changes 2. Evidence of pulmonary arterial hypertension Electronically Signed: Iban Gutierrez MD at 7:37 EST , Rhythm Strip Rhythm Strip: Sinus Tach Rate: 126 Ectopy: None Physical Exam Const alert and no apparent distress Constitutional Narrative: Morbidly obese. General Appearance: cooperative HEENT normocephalic, head/scalp atraumatic and moist oral mucous membranes Eyes PERRL, EOMs intact bilaterally and conjunctivae normal Neck supple General: trachea midline Chest inspection of chest normal Resp Effort and Inspection: tachypneic Auscultation: rales and diminished lung sounds Cardio S1 normal heart sound and S2 normal heart sound Rate: tachycardic GI normal to inspection, nondistended, normoactive bowel sounds Extremity no clubbing, cyanosis or edema Skin no rashes or lesions noted Neuro CN's II-XII intact bilaterally and no focal motor deficits Psych cooperative and affect normal Charges/Coding Procedures Hospitalists Procedures: 11888 Critical Care 1st Hr
[2023-11-19] MEDS: Acetaminophen 325 MG Tablet 650 MG PO (06:48)
[2023-11-19] MEDS: Psyllium 1 PACKET PO (07:55)
[2023-11-19] MEDS: Menthol/Lanolin/Calamine/Znox 113 GM Tube 1 APPLIC TOPICAL ×4 (07:55→20:30)
[2023-11-19] MEDS: Vibegron 75 MG TABLET PO (07:55)
[2023-11-19] MEDS: Midodrine HCl 5 MG Tablet 10 MG PO ×3 (07:56→16:34)
[2023-11-19] MEDS: sulfaSALAzine 500 MG Tablet 1000 MG PO ×2 (07:56→20:35)
[2023-11-19] MEDS: Miconazole Nitrate 43 GM Bottle 1 APPLIC TOPICAL (07:56)
--- NOTE | 2023-11-19 08:16 | PCM.PN.HOSP ---
Reason for Visit Reason for Visit: Diagnoses Sepsis, unspecified organism (11/13/23) Dehydration (11/13/23) Gastrointestinal hemorrhage, unspecified (11/13/23) Urinary tract infection, site not specified (11/13/23) Hypoxemia (11/13/23) Subjective Subjective Patient reports feeling somewhat better today, still short of breath but feeling better than she was, likes having SCDs in place, no chest pain or cough Objective Data Objective Data Vital Signs: Vital Signs Temp Pulse Resp BP Pulse Ox O2 Del Method O2 Flow Rate 97.8 F 104 H 26 H 103/82 H 92 Airvo 60 11/19/23 08:00 11/19/23 08:00 11/19/23 08:00 11/19/23 08:00 11/19/23 08:00 11/19/23 08:00 11/19/23 08:00 FiO2 79 11/19/23 08:00 Oxygen Flow Rate (L/min) 60 Oxygen Delivery Method Airvo Weight: 105.9 kg Body Mass Index (BMI) 45.8 Intake & Output: Intake and Output for Last 24 Hours 11/17/23 11/18/23 11/19/23 23:59 23:59 23:59 Intake Total 1440 / 1440 1678.27 / 1902.07 891.86 / 891.86 Output Total 1450 / 1450 610 / 610 200 / 200 Balance -10 / -10 1068.27 / 1292.07 691.86 / 691.86 Lab / Micro Data 11/19/23 03:50 11/19/23 03:50 Labs: Laboratory Results - last 24 hr 11/18/23 20:23: Phosphorus 3.2, Magnesium 1.1 L 11/19/23 00:18: Vancomycin Trough 24.0 H 11/19/23 03:50: WBC 14.0 H, RBC 3.06 L, Hgb 9.2 L, Hct 30.3 L, MCV 99.0, MCH 30.1, MCHC 30.4 L, RDW Std Deviation 53.0 H, RDW Coeff of Sina 14.6, Plt Count 162, MPV 9.3, Immature Gran % (Auto) 0.900, Neut % (Auto) 79.7 H, Lymph % (Auto) 8.6 L, Cotton % (Auto) 9.6, Eos % (Auto) 0.6, Baso % (Auto) 0.6, Absolute Neuts (auto) 11.2 H, Absolute Lymphs (auto) 1.21, Nucleated RBC % 0, Sodium 132 L, Potassium 4.1, Chloride 96 L, Carbon Dioxide 25.0, Anion Gap 11, BUN 22 H, Creatinine 1.87 H, Estim Creat Clear Calc 25.08, Est GFR (MDRD) Af Amer 33 L, Est GFR (MDRD) Non-Af 27 L, BUN/Creatinine Ratio 11.8, Glucose 301 H, Calcium 8.7, Phosphorus 3.9, Magnesium 2.4 Micro: Microbiology 11/15/23 09:30 Blood Culture (Wb) - Pic Blood Culture - Preliminary No growth in 48 hours. 11/16/23 10:30 Urine, Random Legionella Antigen - Final 11/16/23 10:30 Urine, Random Streptococcus pneumoniae Antigen (M - Final 11/13/23 13:40 Urine, Catheterized Urine Culture - Final Culture exhibits no growth. 11/14/23 01:42 Stool Stool Occult Blood (DARREL) - Final Occult Blood Positive 11/13/23 13:22 Mucosa - Nasopharyngeal SARS-CoV-2, Influenza & RSV (PCR) - Final Rhythm Strip Rhythm Strip: Sinus Tach Rate: 126 Ectopy: None Physical Exam Narrative General: Alert, oriented HEENT: Atraumatic, normocephalic Eyes: Anicteric, normal conjunctiva, extraocular movements grossly intact Neck: Supple Respiratory: Slight increased work of breathing with mild tachypnea, diminished throughout Cardiovascular: Regular rate GI: Soft, nontender, nondistended Extremities: No pitting edema Musculoskeletal: Moving all extremities Neuro: No overt focal neurological deficits Skin: No overt rashes appreciated Psych: Cooperative Assessment & Plan Assessment/Plan (1) Sepsis: (2) Hypoxemia: PLAN: Plan 83-year-old female history of CKD stage III, hypothyroidism, morbid obesity, VTE with factor V Leiden and history of IVC filter placement, CHAI on BiPAP, chronic hypoxic respiratory failure secondary to COPD and pulmonary fibrosis, UC who presented to [facility] ED 11/13/2023 with abdominal discomfort for several hours that was crampy in nature and possible coffee-ground emesis and recent UTI diagnosis and was admitted for concern for persistent UTI and possible GI bleed. Hosp complicated by acute on chronic hypoxic respiratory failure and sepsis as well as paroxysmal SVT and ASHANTI. # Acute hypoxic respiratory failure concern for pneumonia with history of chronic hypoxic respiratory failure on 5 L O2 secondary to COPD, pulmonary fibrosis, CHAI on BiPAP -Patient with worsening respiratory failure, increased from 5 L baseline O2 and morning of 11/19/2023 now is 92% on Airvo with respiratory rate of 26 and blood pressure 103/82 -Patient presently in ICU, CODE STATUS changed to DNR/DNI -Patient had limited 2D echo this admission with EF of 60% with no regional wall motion abnormalities normal LV size -Chest imaging concerning for pneumonia and patient on broad-spectrum antibiotics -Additionally patient started on IV Lasix twice daily # Sepsis likely secondary to underlying pneumonia -Patient with concern for pneumonia with MAP less than 65 and systolic blood pressure less than 90 requiring Levophed presently at 2 mcg -Patient additionally with organ dysfunction on top of her respiratory failure as indicated by ASHANTI -On broad-spectrum antibiotics -Cultures presently negative -Remains in ICU -Now to receive lasix and midodrine # Narrow complex tachycardia suspect PSVT with hypotension -Suspected SVT/accelerated junctional rhythm -Patient seen by cardiology, required adenosine x 2 and was placed on Cardizem drip which was changed to amiodarone infusion -Pt requiring 2u levophed #ASHANTI on CKD III unclear subtype -Possibly 2/2 critical illness -Continue hemodynamic support #Recent acute complicated UTI -CT abdomen on admission- patient has bilateral nonobstructing renal stones, largest in left renal pelvis. Patient had been treated with IV rocephin. UA shows positive nitrite 1+ bacteria. Previous urine culture from 11/03/2023 is Klebsiella [id number] all sensitive but resistant to ampicillin Urine culture this admit shows no growth. #Concern for GIB -Hgb baseline 12, admis hgb 12/9 and dropepd to 09/05, occult stool + for blood -GI c/s, pt supposed to have EGD but cancelled d/t hypotension -Continue PPI #Hx VTE w/ factor V Leiden -hx of IVC filter placement -Eliquis on hold due to concern for GI bleed #Hypothyroidism -Continue Synthroid #Morbid obesity -BMI 45.6 kg/m? -Complicates treatment, prognosis, outcomes -Recommend weight loss and lifestyle changes # RLS -Continue home medications # Anxiety and depression -Home medications held due to prolonged QTc # History of UC -Patient on home sulfasalazine -Encouraged outpatient follow-up with GI #DVT ppx: SCDs Amarilys Burnett MD Charges/Coding Visit Charges Inpatient E&M: 76729 Subs Hosp L2
[2023-11-19] MEDS: Pantoprazole Sodium 40 MG in 0.9% Normal Saline (100mL MB+) 100 ML 330 MG IV ×2 (09:22→20:30)
[2023-11-19] MEDS: traMADol 50 MG Tablet PO ×2 (09:23→20:38)
[2023-11-19] MEDS: Furosemide 40 MG/4 ML Vial IV ×2 (09:23→17:41)
--- NOTE | 2023-11-19 11:38 | PRO.PCM_ITS ---
Procedure Report Date of Procedure: 11/19/[address] Roldan recommended reposition of PICC in response to dismal SVT. He recom mended PICC line be withdrawn 1 inch. The patient's PICC line dressing was removed and StatLock discarded. The PICC line was inserted to the hub prior to dressing removal. The skin was cleansed with chlorhexidine. Skin-Prep was used prior to new StatLock application. The PICC line was withdrawn 1 inch, which places the PICC externally at the 1-1/2 cm edita (there is approximately 1 cm from the 0 edita to the hub on the PICC line, so this totals 2.5 cm or 1 inch). CHG Tegaderm applied. Patient tolerated well. Dressing under skin intact.
--- NOTE | 2023-11-19 12:04 | CASEMGMT ---
Discharge Planning Updates sent to [facility] via [facility]. Taisha Harris, Discharge Planning Asst.
[2023-11-19 14:16] LABS: Vancomycin, Random Level 20.2 ug/mL (0.0-15.0)
--- NOTE | 2023-11-19 14:47 | PCM.RX.CS ---
Consult Antibiotic Management Pharmacy has been consulted to manage selected antibiotic: Vancomycin Type of Intervention Type of Consult: Follow-up Labs Labs: Sodium 132 mmol/L (136-145) L 11/19/23 03:50 Potassium 4.1 mmol/L (3.5-5.1) 11/19/23 03:50 Chloride 96 mmol/L (98-107) L 11/19/23 03:50 Carbon Dioxide 25.0 mmol/L (21.0-32.0) 11/19/23 03:50 Anion Gap 11 (5-15) 11/19/23 03:50 BUN 22 mg/dL (7-18) H 11/19/23 03:50 Creatinine 1.87 mg/dL (0.55-1.02) H 11/19/23 03:50 Est GFR (MDRD) Af Amer 33 mL/min (>60) L 11/19/23 03:50 Est GFR (MDRD) Non-Af 27 mL/min (>60) L 11/19/23 03:50 BUN/Creatinine Ratio 11.8 RATIO (10-20) 11/19/23 03:50 Glucose 301 mg/dL (74-106) H 11/19/23 03:50 Vancomycin Trough 24.0 ug/mL (5.0-15.0) H 11/19/23 00:18 Random Vancomycin 20.2 ug/mL (0.0-15.0) H 11/19/23 13:20 Microbiology Microbiology: Microbiology 11/15/23 09:30 Blood Culture (Wb) - Pic Blood Culture - Preliminary No growth in 48 hours. 11/16/23 10:30 Urine, Random Legionella Antigen - Final 11/16/23 10:30 Urine, Random Streptococcus pneumoniae Antigen (M - Final 11/13/23 13:40 Urine, Catheterized Urine Culture - Final Culture exhibits no growth. 11/14/23 01:42 Stool Stool Occult Blood (DARREL) - Final Occult Blood Positive 11/13/23 13:22 Mucosa - Nasopharyngeal SARS-CoV-2, Influenza & RSV (PCR) - Final Pharmacy Plan for Drug Dosing Pharmacy Plan for Drug Dosing: VANCOMYCIN LEVEL RECEIVED Current Vancomycin Dose: ON HOLD Number of Doses Received: 8 Vancomycin Level: 20.2 MG/DL Hours Since Last Dose: 23 Renal Function: SCR 1.87 MG/DL, CRCL 25.1 ML/MIN USING ADJ BW Renal Function Trend: WORSENED, INCREASED FROM 1.03 MG/DL 11/18 Vancomycin Plan/Comments: 23 HOUR LEVEL OF 20.2 MG/DL IS SLIGHTLY OVER GOAL RANGE AND HAS ONLY DROPPED BY 4 MG/DL FROM LAST LEVEL (24 MG/DL, 11/19 @ 2018). WILL NOT ORDER A MAINTENANCE DOSE AT THIS TIME DUE TO WORSENED RENAL FUNCTION. RANDOM LEVEL ORDERED IN 12 HOURS. Pending Level: 11/20/23 @ 0130 Pharmacy Service will continue to monitor and adjust dosing as required.
[2023-11-19] MEDS: Pramipexole Di-HCl 0.5 MG Tablet 1.5 MG PO (20:35)
[2023-11-19] MEDS: Atorvastatin Calcium 20 MG Tablet PO (20:35)
[2023-11-20] VITALS (38 sets, daily range): BP systolic 78–123; BP diastolic 50–97; PULSE 68–122; RESP 14–36; TEMP 36.2–36.6; O2SAT 89–98; BMI 46.3
[2023-11-20] MEDS: Vancomycin Trough/Random Due 1 LAB MC (01:36)
[2023-11-20 02:14] LABS: Vancomycin, Random Level 20.2 ug/mL (0.0-15.0)
--- NOTE | 2023-11-20 03:34 | PCM.RX.CS ---
Consult Antibiotic Management Pharmacy has been consulted to manage selected antibiotic: Vancomycin Type of Intervention Type of Consult: Follow-up Labs Labs: Sodium 132 mmol/L (136-145) L 11/19/23 03:50 Potassium 4.1 mmol/L (3.5-5.1) 11/19/23 03:50 Chloride 96 mmol/L (98-107) L 11/19/23 03:50 Carbon Dioxide 25.0 mmol/L (21.0-32.0) 11/19/23 03:50 Anion Gap 11 (5-15) 11/19/23 03:50 BUN 22 mg/dL (7-18) H 11/19/23 03:50 Creatinine 1.87 mg/dL (0.55-1.02) H 11/19/23 03:50 Est GFR (MDRD) Af Amer 33 mL/min (>60) L 11/19/23 03:50 Est GFR (MDRD) Non-Af 27 mL/min (>60) L 11/19/23 03:50 BUN/Creatinine Ratio 11.8 RATIO (10-20) 11/19/23 03:50 Glucose 301 mg/dL (74-106) H 11/19/23 03:50 Vancomycin Trough 24.0 ug/mL (5.0-15.0) H 11/19/23 00:18 Random Vancomycin 20.2 ug/mL (0.0-15.0) H 11/20/23 01:30 Microbiology Microbiology: Microbiology 11/15/23 09:30 Blood Culture (Wb) - Pic Blood Culture - Preliminary No growth in 48 hours. 11/16/23 10:30 Urine, Random Legionella Antigen - Final 11/16/23 10:30 Urine, Random Streptococcus pneumoniae Antigen (M - Final 11/13/23 13:40 Urine, Catheterized Urine Culture - Final Culture exhibits no growth. 11/14/23 01:42 Stool Stool Occult Blood (DARREL) - Final Occult Blood Positive 11/13/23 13:22 Mucosa - Nasopharyngeal SARS-CoV-2, Influenza & RSV (PCR) - Final Goal Trough Goal Trough: 15-20 mcg/mL Pharmacy Plan for Drug Dosing Pharmacy Plan for Drug Dosing: Pharmacy Service will continue to monitor and adjust dosing as required. RANDOM LEVEL 20.2, DRAW ANOTHER RANDOM LEVEL IN 8 HOURS Follow-Up Labs Follow-Up Labs: Trough: Vancomycin Date/Time Labs Ordered Labs to be done on [date and time ordered]: 11/20 @ 2181
[2023-11-20] MEDS: Amiodarone 360 MG in Dextrose 5% Viaflo Bag 192.8 ML 16.6999999999999993 MG CONT INF (04:28)
[2023-11-20 04:45] LABS: Absolute Lymphocyte Count 1.19 X10^3/uL (0.83-4.51); Absolute Neutrophil Count 10.6 X10^3/uL (2.0-7.7); Basophil# 0.09 X10^3/uL; Basophil% 0.7 % (0-1); Eosinophil# 0.16 X10^3/uL; Eosinophils% 1.2 % (0-5); Hematocrit 31.3 % (37-47); Hemoglobin 9.4 g/dL (12.0-15.0); Lymphocyte # 1.19 X10^3/ul (0.83-4.51); Lymphocyte % 8.9 % (19-41); Mean Corpuscular Hgb 29.8 pg (27.0-32.0); Mean Corpuscular Volume 99.4 fL (81-99); Mean Platelet Vol. 9.5 fl (6.2-12.0); NRBC Flagged by Analyzer 0 % (0-5); Neutrophil # 10.63 X10^3/uL (2.7-7.7); Neutrophil % 79.3 % (47-70); Platelet Count 195 K/mm3 (150-450); RBC Distribution Width CV 14.8 % (11.6-14.6); RBC Distribution Width SD 54.5 fl (35.1-43.9); Red Blood Count 3.15 M/mm3 (4.2-5.4); White Blood Count 13.4 K/mm3 (4.4-11.0)
[2023-11-20 04:59] LABS: Anion Gap 10 (5-15); BUN 30 mg/dL (7-18); BUN/Creat Ratio 11.9 RATIO (10-20); Calcium,Total 9.3 mg/dL (8.5-10.1); Chloride 102 mmol/L (98-107); Creatinine, Serum 2.53 mg/dL (0.55-1.02); EST Glomerular Filtration Rate 19 mL/min (>60); Est Glom Filt Rate - Afr Amer 23 mL/min (>60); Estimated Creatinine Clearance 18.53 ml/min; Glucose 120 mg/dL (74-106); Potassium 4.1 mmol/L (3.5-5.1); Sodium Level 138 mmol/L (136-145)
[2023-11-20] MEDS: Levothyroxine 175 MCG Tablet PO (05:29)
[2023-11-20] MEDS: Piperacil/Tazobactam 3.375 GM in 0.9% Normal Saline (50mL MB+) 50 ML IV ×2 (05:29→20:50)
--- NOTE | 2023-11-20 06:50 | PCM.PN.HOSP ---
Reason for Visit Reason for Visit: Diagnoses Sepsis, unspecified organism (11/13/23) Dehydration (11/13/23) Essential (primary) hypertension (11/13/23) Supraventricular tachycardia (11/13/23) Gastrointestinal hemorrhage, unspecified (11/13/23) Urinary tract infection, site not specified (11/13/23) Hypoxemia (11/13/23) Subjective Subjective Patient reports feeling little bit better every day but she is not sure if she feels much better than yesterday, breathing roughly the same, does report she gets some dull ache in her chest worse with palpation and inspiration, also gets some pressure in her head when she coughs and has a stuffy nose from the Airvo Objective Data Objective Data Vital Signs: Vital Signs Temp Pulse Resp BP Pulse Ox O2 Del Method O2 Flow Rate 97.5 F L 87 21 H 95/55 L 91 Bi-pap 60 11/20/23 04:00 11/20/23 06:00 11/20/23 06:00 11/20/23 06:00 11/20/23 06:00 11/20/23 06:00 11/20/23 06:00 FiO2 91 11/20/23 06:00 Oxygen Flow Rate (L/min) 60 Oxygen Delivery Method Bi-pap Weight: 107.1 kg Body Mass Index (BMI) 46.3 Intake & Output: Intake and Output for Last 24 Hours 11/18/23 11/19/23 11/20/23 23:59 23:59 23:59 Intake Total 1678.27 / 1902.07 1927.27 / 1931.07 275.61 / 275.61 Output Total 610 / 610 925 / 925 800 / 800 Balance 1068.27 / 1292.07 1002.27 / 1006.07 -524.39 / -524.39 Lab / Micro Data 11/20/23 04:35 11/20/23 04:35 Labs: Laboratory Results - last 24 hr 11/19/23 13:20: Random Vancomycin 20.2 H 11/20/23 01:30: Random Vancomycin 20.2 H 11/20/23 04:35: WBC 13.4 H, RBC 3.15 L, Hgb 9.4 L, Hct 31.3 L, MCV 99.4 H, MCH 29.8, MCHC 30.0 L, RDW Std Deviation 54.5 H, RDW Coeff of Sina 14.8 H, Plt Count 195, MPV 9.5, Immature Gran % (Auto) 0.900, Neut % (Auto) 79.3 H, Lymph % (Auto) 8.9 L, Baldwin % (Auto) 9.0, Eos % (Auto) 1.2, Baso % (Auto) 0.7, Absolute Neuts (auto) 10.6 H, Absolute Lymphs (auto) 1.19, Nucleated RBC % 0, Sodium 138, Potassium 4.1, Chloride 102, Carbon Dioxide 26.0, Anion Gap 10, BUN 30 H, Creatinine 2.53 H, Estim Creat Clear Calc 18.53, Est GFR (MDRD) Af Amer 23 L, Est GFR (MDRD) Non-Af 19 L, BUN/Creatinine Ratio 11.9, Glucose 120 H, Calcium 9.3 Micro: Microbiology 11/15/23 09:30 Blood Culture (Wb) - Pic Blood Culture - Preliminary No growth in 48 hours. 11/16/23 10:30 Urine, Random Legionella Antigen - Final 11/16/23 10:30 Urine, Random Streptococcus pneumoniae Antigen (M - Final 11/13/23 13:40 Urine, Catheterized Urine Culture - Final Culture exhibits no growth. 11/14/23 01:42 Stool Stool Occult Blood (DARREL) - Final Occult Blood Positive 11/13/23 13:22 Mucosa - Nasopharyngeal SARS-CoV-2, Influenza & RSV (PCR) - Final Rhythm Strip Rhythm Strip: Sinus Tach Rate: 126 Ectopy: None Physical Exam Narrative General: Alert, oriented HEENT: Atraumatic, normocephalic Eyes: Anicteric, normal conjunctiva, extraocular movements grossly intact Neck: Supple Respiratory: Slight increased work of breathing with mild tachypnea, diminished throughout, moreso the bases Cardiovascular: Regular rate, did have a little bit of aching when pressing on chest GI: Soft, nontender, nondistended Extremities: Trace lower extremity edema Musculoskeletal: Moving all extremities Neuro: No overt focal neurological deficits Skin: No overt rashes appreciated Psych: Cooperative Assessment & Plan Assessment/Plan (1) Sepsis: (2) Hypoxemia: PLAN: Plan 83-year-old female history of CKD stage III, hypothyroidism, morbid obesity, VTE with factor V Leiden and history of IVC filter placement, CHAI on BiPAP, chronic hypoxic respiratory failure secondary to COPD and pulmonary fibrosis, UC who presented to [facility] ED 11/13/2023 with abdominal discomfort for several hours that was crampy in nature and possible coffee-ground emesis and recent UTI diagnosis and was admitted for concern for persistent UTI and possible GI bleed. Hosp complicated by acute on chronic hypoxic respiratory failure and sepsis as well as paroxysmal SVT and ASHANTI. # Acute hypoxic respiratory failure concern for pneumonia with history of chronic hypoxic respiratory failure on 5 L O2 secondary to COPD, pulmonary fibrosis, CHAI on BiPAP -Patient with worsening respiratory failure, increased from 5 L baseline O2 and morning of 11/19/2023 now is 92% on Airvo with respiratory rate of 26 and blood pressure 103/82 -Patient presently in ICU, CODE STATUS changed to DNR/DNI -Patient had limited 2D echo this admission with EF of 60% with no regional wall motion abnormalities normal LV size -Chest imaging concerning for pneumonia and patient on broad-spectrum antibiotics -Additionally patient started on IV Lasix twice daily -11/20: Alternating between BiPAP and airvo, on Zosyn and vancomycin, status post 2 doses of Lasix # Sepsis likely secondary to underlying pneumonia -Patient with concern for pneumonia with MAP less than 65 and systolic blood pressure less than 90 requiring Levophed presently at 2 mcg -Patient additionally with organ dysfunction on top of her respiratory failure as indicated by ASHANTI -On broad-spectrum antibiotics -Cultures presently negative -Remains in ICU -Now to receive lasix and midodrine -11/20: Remains on midodrine, blood pressures borderline, on low doses of Levophed # Narrow complex tachycardia suspect PSVT with hypotension -Suspected SVT/accelerated junctional rhythm -Patient seen by cardiology, required adenosine x 2 and was placed on Cardizem drip which was changed to amiodarone infusion -Pt requiring 2u levophed -11/20: Low doses of Levophed, amiodarone drip #ASHANTI on CKD III unclear subtype -Possibly 2/2 critical illness -Continue hemodynamic support -11/20: Kidney function continues to worsen, suspect due to hypotension and critical illness, monitor urine output, nephrology consulted, retroperitoneal ultrasound with atrophic kidney but no hydronephrosis #Recent acute complicated UTI -CT abdomen on admission- patient has bilateral nonobstructing renal stones, largest in left renal pelvis. Patient had been treated with IV rocephin. UA shows positive nitrite 1+ bacteria. Previous urine culture from 11/03/2023 is Klebsiella [id number] all sensitive but resistant to ampicillin Urine culture this admit shows no growth. #Concern for GIB -Hgb baseline 12, admis hgb 10/13 and dropped to 09/05, occult stool + for blood -GI c/s, pt supposed to have EGD but cancelled d/t hypotension -Continue PPI -11/20: Hemoglobin has been stable over the past several days, continue PPI #Hx VTE w/ factor V Leiden -hx of IVC filter placement -Eliquis on hold due to concern for GI bleed #Hypothyroidism -Continue Synthroid #Morbid obesity -BMI 45.6 kg/m? -Complicates treatment, prognosis, outcomes -Recommend weight loss and lifestyle changes # RLS -Continue home medications # Anxiety and depression -Home medications held due to prolonged QTc # History of UC -Patient on home sulfasalazine -Encouraged outpatient follow-up with GI #DVT ppx: SCDs Amarilys Burnett MD [employer] Medical hold order details:: IF a medical hold is selected below, a suggested order for a MEDICAL HOLD will reflex upon signing the document. Next of kin: [place] law dictates a PRIORITY LIST for identifying legal decision-maker/legal next of kin in the following order (LNOK): 1st: The patient?s legal guardian, if any 2nd: The patient's spouse (if status is questionable, consult Risk Management) 3rd: The patient?s adult child(marky) (majority, if multiple children) 4th: The patient?s parents 5th: The patient?s adult siblings (majority, if multiple children siblings) Charges/Coding Visit Charges Inpatient E&M: 48288 Subs Hosp L2
--- NOTE | 2023-11-20 06:58 | PN.CC_ITS ---
Assessment & Plan Assessment/Plan (1) Sepsis: (2) Hypoxemia: PLAN: Plan RECOMMENDATIONS: 1. Wean FiO2 to maintain oxygen saturations at or above 90%. 2. Continue AVAPS therapy with naps and nightly. 3. Obtain renal ultrasound and nephrology consultation. 4. Obtain follow-up chest x-ray. 5. Start weight-based heparin infusion. 6. Continue midodrine as ordered. 7. Continue amiodarone. 8. Continue antibiotics as ordered. 9. Continue PPI therapy as ordered. 10. Monitor blood counts and transfuse if hemoglobin drops below 7 g/dL. 11. Arrange family meeting to discuss goals of care. IMPRESSIONS: 1. Acute hypoxemic respiratory failure Chest imaging demonstrated findings concerning for pneumonia. The patient remains on broad-spectrum antimicrobials. The patient reportedly utilizes only 2 L/min of supplemental oxygen on a nightly basis with her BiPAP. She is unaware of any pre-existing diagnosis of COPD, despite having Advair and albuterol on her outpatient MAR. The patient was previously on Eliquis, which remains on hold over concerns for occult blood positive stools. However, given her history of factor V Leiden, will initiate weight-based heparin infusion today. Attempts to optimize her volume status have been unsuccessful and have led to worsening in her renal function. Therefore, nephrology consultation will be obtained. In the meantime, continue heated high flow oxygen throughout the day and PAP therapy, at a minimum, on a nightly basis. Continue to wean FiO2 for saturations greater than 90%. 2. Septic Shock The patient presented to the hospital with sepsis due to probable UTI versus pneumonia with acute sepsis related organ dysfunction as evidenced by persistent hypotension with a MAP less than 65 and/or systolic blood pressure less than 90 mmHg. Continue broad-spectrum antimicrobials as ordered. Continue scheduled midodrine for now. If the patient becomes hemodynamically unstable, Levophed can be restarted. 3. Recurrent SVT Cardiology is currently following. Continue amiodarone as ordered. 4. Anemia The patient's hemoglobin is currently stable. There are no overt signs of any blood loss. The patient will be at high risk for further respiratory decompensation if she were to be taken for endoscopic evaluation at the present time. Therefore, recommend continue current supportive care and continuing PPI therapy as ordered. Plan to initiate weight-based heparin infusion and monitor blood counts accordingly. 5. 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 Continue BiPAP therapy with naps and nightly. Nurys remains on hold on account of concerns for underlying GI bleeding. Recommend proceeding with family meeting to discuss goals of care. This note was generated with [employer] dictation software. It may contain incorrect words, spelling, and punctuation that were not noted in checking the note before signing. Subjective Subjective The patient was seen and examined at the bedside this morning. Events from the last 24 hours have been reviewed. The patient still remains on low-dose Levophed at 2 mcg/min to maintain hemodynamic stability. She has been alternating between PAP therapy and heated high flow oxygen with an FiO2 of 91% and flow rate of 60 L/min. She is documented to be overall net +8.3 L for the hospitalization. The patient did tolerate 2 doses of IV Lasix yesterday. White count is mildly elevated at 13,000. Hemoglobin is stable. Creatinine has increased to 2.53. Objective Data Objective Data The patient's most recent lab work, culture data and imaging studies have all been personally reviewed. Surface echocardiogram completed in November 2023 demonstrated normal LV size and function with an ejection fraction of 60%. Vital Signs: Vital Signs Temp Pulse Resp BP Pulse Ox O2 Del Method O2 Flow Rate 97.5 F L 87 21 H 95/55 L 91 Bi-pap 60 11/20/23 04:00 11/20/23 06:00 11/20/23 06:00 11/20/23 06:00 11/20/23 06:00 11/20/23 06:00 11/20/23 06:00 FiO2 91 11/20/23 06:00 Oxygen Flow Rate (L/min) 60 Oxygen Delivery Method Bi-pap Weight: 236 lb 1.841 oz Body Mass Index (BMI) 46.3 Intake & Output: Intake and Output for Last 24 Hours 11/18/23 11/19/23 11/20/23 23:59 23:59 23:59 Intake Total 1678.27 / 1902.07 1927.27 / 1931.07 275.61 / 275.61 Output Total 610 / 610 925 / 925 800 / 800 Balance 1068.27 / 1292.07 1002.27 / 1006.07 -524.39 / -524.39 Lab / Micro Data Attestation: I reviewed the patient's lab results. 11/20/23 04:35 11/20/23 04:35 Labs: Laboratory Results - last 24 hr 11/19/23 13:20: Random Vancomycin 20.2 H 11/20/23 01:30: Random Vancomycin 20.2 H 11/20/23 04:35: WBC 13.4 H, RBC 3.15 L, Hgb 9.4 L, Hct 31.3 L, MCV 99.4 H, MCH 29.8, MCHC 30.0 L, RDW Std Deviation 54.5 H, RDW Coeff of Sina 14.8 H, Plt Count 195, MPV 9.5, Immature Gran % (Auto) 0.900, Neut % (Auto) 79.3 H, Lymph % (Auto) 8.9 L, [place] % (Auto) 9.0, Eos % (Auto) 1.2, Baso % (Auto) 0.7, Absolute Neuts ( auto) 10.6 H, Absolute Lymphs (auto) 1.19, Nucleated RBC % 0, Sodium 138, Potassium 4.1, Chloride 102, Carbon Dioxide 26.0, Anion Gap 10, BUN 30 H, Creati nine 2.53 H, Estim Creat Clear Calc 18.53, Est GFR (MDRD) Af Amer 23 L, Est GFR (MDRD) Non-Af 19 L, BUN/Creatinine Ratio 11.9, Glucose 120 H, Calcium 9.3 Micro: Microbiology 11/15/23 09:30 Blood Culture (Wb) - Pic Blood Culture - Preliminary No growth in 48 hours. 11/16/23 10:30 Urine, Random Legionella Antigen - Final 11/16/23 10:30 Urine, Random Streptococcus pneumoniae Antigen (M - Final 11/13/23 13:40 Urine, Catheterized Urine Culture - Final Culture exhibits no growth. 11/14/23 01:42 Stool Stool Occult Blood (DARREL) - Final Occult Blood Positive 11/13/23 13:22 Mucosa - Nasopharyngeal SARS-CoV-2, Influenza & RSV (PCR) - Final ABG Data ABG results: ABG 11/18/23 04:04 Specimen Type ART Sample Site R Radial pH 7.44 Bicarbonate Actual 25.3 Total CO2 26 Base Excess 1 O2 Saturation 97 O2 % 100.0 ABG pCO2 37.1 ABG pO2 86 Theodore Test N/A Respiration Rate 14 O2 Delivery Device BiPAP Vent Mode Not entered Tidal Volume 400.0 POC PEEP 12 Radiography Diagnostic Testing: Radiology Impression Chest X-Ray 11/18/23 06:06 IMPRESSION: 1. Right worse than left bilateral pulmonary opacity changes 2. Evidence of pulmonary arterial hypertension Electronically Signed: Iban Gutierrez MD at 7:37 EST , Rhythm Strip Rhythm Strip: Sinus Tach Rate: 126 Ectopy: None Physical Exam Const alert and no apparent distress Constitutional Narrative: Morbidly obese. Currently tolerating heated high flow oxygen. General Appearance: cooperative HEENT normocephalic, head/scalp atraumatic and moist oral mucous membranes Eyes PERRL, EOMs intact bilaterally and conjunctivae normal Neck supple General: trachea midline Chest inspection of chest normal Resp Auscultation: rales and diminished lung sounds Cardio regular rate, regular rhythm, S1 normal heart sound and S2 normal heart sound GI normal to inspection, nondistended, normoactive bowel sounds Extremity no clubbing, cyanosis or edema Skin no rashes or lesions noted Neuro CN's II-XII intact bilaterally and no focal motor deficits Psych cooperative and affect normal Charges/Coding Visit Charges Inpatient E&M: 42217 Subs Hosp L3
--- NOTE | 2023-11-20 07:01 | US_ITS ---
STUDY: RENAL ULTRASOUND - COMPLETE REASON FOR EXAM: Female, 83 years old. Renal insufficiency TECHNIQUE: Ultrasound evaluation of the kidneys was performed with real-time and static germain-scale imaging. COMPARISON: CT dated 11/13/2023 FINDINGS: RIGHT KIDNEY: Normal location of the right kidney, which is normal in size. The right kidney measures 11.6 cm. There is a normal cortex of the right kidney. There is no right renal mass or cyst. There are no right renal calculi. There is no right hydronephrosis. DISTAL RIGHT URETER: There is non-visualization of the distal right ureter. There is no demonstrated right ureterovesical junction calculus. There is no demonstrated right ureteral jet. LEFT KIDNEY: The left kidney is atrophic. The left kidney measures 7.9 cm. There is a normal cortex of the left kidney. There is no left renal mass or cyst. There are no left renal calculi. There is no left hydronephrosis. DISTAL LEFT URETER: There is non-visualization of the distal left ureter. There is no demonstrated left ureterovesical junction calculus. There is no demonstrated left ureteral jet. BLADDER: The urinary bladder is collapsed due to the Kim catheter. US/Kidney and Bladder IMPRESSION: Atrophic left kidney. No hydronephrosis Electronically Signed: Rafael Coleman MD at 8:59 EST ,
--- NOTE | 2023-11-20 07:11 | RAD_ITS ---
STUDY: X-RAY CHEST REASON FOR EXAM: Female, 83 years old. Respiratory failure. TECHNIQUE: Frontal view of the chest COMPARISON: 11/18/2023 FINDINGS: Again noted are airspace opacities in the mid to lower lung rivas bilaterally, right greater than left. When compared with the prior exam there is slightly improved aeration in the right mid lung. The remainder the examination is unchanged. RAD/Chest 1 View (Portable) IMPRESSION: Slightly improved aeration in the right mid lung. Electronically Signed: Rafael Coleman MD at 8:14 EST ,
[2023-11-20] MEDS: Midodrine HCl 5 MG Tablet 10 MG PO ×3 (08:13→17:43)
[2023-11-20] MEDS: sulfaSALAzine 500 MG Tablet 1000 MG PO ×2 (08:14→20:50)
[2023-11-20] MEDS: Menthol/Lanolin/Calamine/Znox 113 GM Tube 1 APPLIC TOPICAL ×3 (08:14→20:51)
[2023-11-20] MEDS: Miconazole Nitrate 43 GM Bottle 1 APPLIC TOPICAL (08:15)
[2023-11-20] MEDS: Vibegron 75 MG TABLET PO (08:15)
[2023-11-20] MEDS: 0.9% Saline Lock 10 ML Syringe IV ×3 (08:18→17:43)
[2023-11-20] MEDS: Psyllium 1 PACKET PO (08:19)
[2023-11-20] MEDS: Amiodarone 200 MG Tablet PO (08:39)
[2023-11-20] MEDS: traMADol 50 MG Tablet PO ×2 (08:39→20:50)
[2023-11-20 10:23] LABS: International Normalized Ratio 1.5; Prothrombin Time (Protime)PT. 18.3 SECONDS (11.7-14.9)
[2023-11-20] MEDS: HEPARIN/D5w 25,000 UNITS 25,000 UNITS/250 ML IV.SOLN. 15 UNITS CONT INF (10:23)
[2023-11-20] MEDS: Pantoprazole Sodium 40 MG in 0.9% Normal Saline (100mL MB+) 100 ML 330 MG IV ×2 (10:24→20:50)
[2023-11-20 10:25] LABS: Partial Thromboplast Time 49.9 Seconds (24.1-36.2)
[2023-11-20 10:36] LABS: Vancomycin, Random Level 18.8 ug/mL (0.0-15.0)
--- NOTE | 2023-11-20 11:09 | PCM.RX.CS ---
Consult Antibiotic Management Pharmacy has been consulted to manage selected antibiotic: Vancomycin Type of Intervention Type of Consult: Follow-up Suspected Infection Suspected Infection: Pneumonia Prior Doses of Antibiotics Prior Doses of Antibiotics Received/Current Regimen: Vancomycin 750 mg q12h last dose given 11/18 @ 1417 Labs Labs: Sodium 138 mmol/L (136-145) 11/20/23 04:35 Potassium 4.1 mmol/L (3.5-5.1) 11/20/23 04:35 Chloride 102 mmol/L (98-107) 11/20/23 04:35 Carbon Dioxide 26.0 mmol/L (21.0-32.0) 11/20/23 04:35 Anion Gap 10 (5-15) 11/20/23 04:35 BUN 30 mg/dL (7-18) H 11/20/23 04:35 Creatinine 2.53 mg/dL (0.55-1.02) H 11/20/23 04:35 Est GFR (MDRD) Af Amer 23 mL/min (>60) L 11/20/23 04:35 Est GFR (MDRD) Non-Af 19 mL/min (>60) L 11/20/23 04:35 BUN/Creatinine Ratio 11.9 RATIO (10-20) 11/20/23 04:35 Glucose 120 mg/dL (74-106) H 11/20/23 04:35 Vancomycin Trough 24.0 ug/mL (5.0-15.0) H 11/19/23 00:18 Random Vancomycin 18.8 ug/mL (0.0-15.0) H 11/20/23 09:55 Microbiology Microbiology: Microbiology 11/15/23 09:30 Blood Culture (Wb) - Pic Blood Culture - Preliminary No growth in 48 hours. 11/16/23 10:30 Urine, Random Legionella Antigen - Final 11/16/23 10:30 Urine, Random Streptococcus pneumoniae Antigen (M - Final 11/13/23 13:40 Urine, Catheterized Urine Culture - Final Culture exhibits no growth. 11/14/23 01:42 Stool Stool Occult Blood (DARREL) - Final Occult Blood Positive 11/13/23 13:22 Mucosa - Nasopharyngeal SARS-CoV-2, Influenza & RSV (PCR) - Final Dosing Weight Weight used for dosin.1 kg Estimated Creatinine Clearance Estimated Creatinine Clearance: ~19 Goal Trough Goal Trough: 15-20 mcg/mL Pharmacy Plan for Drug Dosing Pharmacy Plan for Drug Dosing: Vancomycin random this morning = 18.8, this is ~ 43 hours after her last dose. The patient's vancomycin is scheduled to stop tomorrow, therefore will give x1 dose of vancomycin 1000 mg today which should provide adequate coverage until the vancomycin ends tomorrow evening. Per calculator predicted trough with vancomycin 1000 mg iv 15.3 based on current PK parameters. Will not order follow up labs at this time unless patient remains on vancomycin after tomorrow. Pharmacy Service will continue to monitor and adjust dosing as required.
--- NOTE | 2023-11-20 11:44 | PCM.CONS.R ---
Assessment & Plan Assessment/Plan (1) ASHANTI (acute kidney injury): (2) Acute hypoxic respiratory failure: (3) Hypotension: (4) Sepsis: PLAN: Plan This is an 83-year-old female with past medical history significant for chronic hypoxic respiratory failure secondary to COPD complicated by pulmonary fibrosis, CHAI (on BiPAP therapy at home with oxygen, hypothyroidism, hyperlipidemia, hypertension, history of VTE (DVT, PE) with factor V Leyden status post IVC filter placement, chronic thrombocytopenia, chronic anemia, anemia and depression who presented to the emergency room on November 13 with complaints of acute onset abdominal pain. Workup in the emergency room concerning for pneumonia, UTI, septic shock (on vancomycin and Zosyn) and GI bleed. Patient has been seen by GI EGD however on hold due to hypotension. Patient on Levophed drip. Nephrology consulted for ASHANTI. Patient has normal baseline serum creatinine, reviewing past trends on July 30, 2023 serum creatinine 0.85 mg/dL. On admission, November 13 serum creatinine was 1.11. Creatinine improved to 0.68 on November 17 however over the past few days serum creatinine has been slowly rising and today serum creatinine is 2.53 mg/dL. Patient is nonoliguric. Patient has been hypotensive during this hospitalization. She has also had runs of SVT requiring adenosine x 2, Cardizem and drip and amiodarone infusion. Patient is currently on Levophed drip at 1mcg/hr and midodrine TID. Blood pressures have somewhat improved over the last 24 hours. She is currently on amiodarone drip and heart rates have improved over the past 24 hours. Likely nonoliguric ASHANTI is prerenal and multifactorial from UTI/pneumonia/sepsis as well as poor renal perfusion from hypotension and SVT. Patient had been on furosemide 40 mg IV twice daily but this was stopped due to rising serum creatinine. Renal ultrasound did not show any hydronephrosis, right kidney 11.6 cm, left kidney atrophic, measuring 7.9 cm. Per patient her oral intake has been very poor. Speech therapy is going to be consulted. Recommend to push/encourage increase in solute intake. At this time there is no acute indication for renal placement therapy, patient is nonoliguric, there is no significant hypervolemia and there is no hyperkalemia or acidemia. Possibly serum creatinine may peak over the next day or 2 before improving. Hopefully renal function will improve with supportive care. Patient's acute hypoxemic respiratory failure seems to be multifactorial from pneumonia, history of CHAI requiring BiPAP and supplemental oxygen at home. Last echo from November 14, 2023: Normal LV size, left ventricular systolic function normal, EF 60%, normal RV size and systolic function, pericardial effusion. Recommend close monitoring of Vanco levels given ASHANTI. Further orders forthcoming as hospitalization evolves, thank you for allowing us to participate in the care of Ms. Baker. HPI Consult Data Date of Consult: 11/20/23 HPI Narrative HPI Narrative: OPAL BAKER, is a 83 F with past medical history significant for chronic hypoxic respiratory failure secondary to COPD complicated by pulmonary fibrosis, CHAI, hypothyroidism, hyperlipidemia, hypertension, history of VTE (DVT, PE) with factor V Leyden status post IVC filter placement, chronic thrombocytopenia, chronic anemia, anemia and depression who presented to the emergency room on November 13 with complaints of acute onset abdominal pain. Workup in the emergency room included CT of abdomen and pelvis with IV contrast which showed nonspecific fluid-filled small bowel loops without evidence of bowel obstruction, no focal acute inflammatory process; UA positive for UTI, patient hypotensive in ER. Patient was started on PPI drip and admitted for further evaluation and treatment. Nephrology consulted for ASHANTI. 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 However we have seen patient in past for ASHANTI. Patient never required KILN PACKER. Patient has normal baseline serum creatinine but does have noted fluctuated serum creatinines over the past few years. Patient denies any recent vomiting or diarrhea but does report poor appetite due to difficulty chewing. [facility] Medical History (Updated 11/20/23 @ 11:51 by Kait Ma NP-C) Asthma Atrial fibrillation BiPAP (biphasic positive airway pressure) dependence Carpal tunnel syndrome Chronic anticoagulation CKD (chronic kidney disease) COPD (chronic obstructive pulmonary disease) DVT (deep venous thrombosis) Essential hypertension Fracture of right radius GI bleed History of deep venous thrombosis History of pulmonary embolus (PE) (2008) History of ulcerative colitis Hyperlipidemia Hypertension Hypotension Morbid obesity On home oxygen therapy CHAI treated with BiPAP Presence of IVC filter Pulmonary fibrosis Restless leg syndrome RLS (restless legs syndrome) Secondary pulmonary arterial hypertension Thrombocytopenia Home Medications rosuvastatin 10 mg tablet 10 mg PO QHS CHOLESTEROL LOWERING 05/13/15 [History Last Taken 11/12/23] sulfasalazine 500 mg tablet 1,000 mg PO BID COLITIS 10/23/15 [History Last Taken 07/28/23] amitriptyline 100 mg tablet 100 mg PO QHS DEPRESSION 01/30/17 [History Last Taken 11/12/23] glucosamine HCl 500 mg-msm 83 mg-chondroitin 400 mg tablet 1 ea PO BID SUPPLEMENT 01/30/17 [History Last Taken 11/13/23] pramipexole 1.5 mg tablet 1.5 mg PO QHS restless legs 01/12/20 [History Last Taken 11/12/23] levothyroxine 175 mcg tablet 175 mcg PO DAILY 01/25/21 [History Last Taken 11/13/23] duloxetine 60 mg capsule,delayed release 60 mg PO Q OTHER DAY depression 07/27/22 [History Last Taken 11/13/23] mirabegron 50 mg tablet,extended release 24 hr (Myrbetriq) 50 mg PO DAILY 07/27/22 [History Last Taken 11/13/23] metoprolol succinate 25 mg tablet,extended release 24 hr 25 mg PO DAILY htn 04/10/23 [History Last Taken 11/13/23] melatonin 3 mg capsule 3 mg PO HS PRN insomnia 09/12/23 [History Last Taken 11/12/23] tramadol 50 mg tablet 50 mg PO BID 09/12/23 [History Last Taken 11/13/23] acetaminophen 325 mg tablet 650 mg PO TID 11/13/23 [History Last Taken 11/13/23] albuterol sulfate 2.5 mg/3 mL (0.083 %) solution for nebulization 2.5 mg inhalation Q6H PRN shortness of breath 11/13/23 [History Last Taken Unknown] apixaban 5 mg tablet (Eliquis) 5 mg PO BID 11/13/23 [History Last Taken 11/12/23] ciprofloxacin HCl 500 mg tablet 500 mg PO BID 11/13/23 [History Last Taken 11/13/23] d-mannose 500 mg capsule (AZO D-Mannose) 2,000 mg PO QHS UTI PREVENTION 11/13/23 [History Last Taken 11/12/23] fluticasone 100 mcg-salmeterol 50 mcg/dose blistr powdr for inhalation (Advair Diskus) 1 inh inhalation BID 11/13/23 [History Last Taken 11/13/23] ondansetron HCl 4 mg tablet 4 mg PO Q6H PRN nausea 11/13/23 [History Last Taken 11/12/23] Allergy/AdvReac Type Severity Reaction Status Date / Time erythromycin base Allergy Mild unknown Verified 09/19/23 14:50 aspirin [From Robaxisal] Allergy Unknown Verified 09/19/23 14:50 digoxin [From Lanoxin] Allergy Unknown Verified 09/19/23 14:50 etodolac [From Lodine] Allergy Unknown Verified 09/19/23 14:50 ibuprofen [From Motrin] Allergy Unknown Verified 09/19/23 14:50 meclizine HCl [From Antivert] Allergy Unknown Verified 09/19/23 14:50 meclofenamate sodium Allergy Unknown Verified 09/19/23 14:50 [From Meclomen] methocarbamol Allergy Unknown Verified 09/19/23 14:50 [From Robaxisal] nabumetone [From Relafen] Allergy Unknown Verified 09/19/23 14:50 naproxen Allergy Unknown Verified 09/19/23 14:50 sulfamethoxazole Allergy Unknown Verified 09/19/23 14:50 [From Bactrim] trimethoprim [From Bactrim] Allergy Unknown Verified 09/19/23 14:50 hydrocodone AdvReac Severe HALLUCINATI Verified 09/19/23 14:50 ONS Penicillins AdvReac Intermediate Diarrhea Verified 09/19/23 14:50 Family History Father Prostate cancer Brother Heart disease Mother Parkinsons disease Surgical History H/O colonoscopy H/O right heart catheterization (04/11/19) History of appendectomy History of basal cell carcinoma excision History of carpal tunnel surgery of right wrist History of cholecystectomy History of embolic filter insertion History of total left knee replacement (12/19/07) S/P appendectomy S/P cholecystectomy S/P Mohs surgery for basal cell carcinoma Status post total left knee replacement Social History household members: none Smoking Status: Former smoker how long ago did patient quit smokin years ago alcohol intake: never substance use type: does not use caffeine: Yes Type: coffee Number of servings: 1 ROS ROS Narrative As in HPI and past medical history Physical Exam Narrative Alert and orient x 3, no apparent distress Lung sounds clear anteriorly, diminished breath sounds posterior bases. No rhonchi or rales noted Abdomen soft, hypoactive bowel sounds, nontender No pitting edema bilateral lower legs or feet Indwelling Kim with clear yellow urine in bag Lab / Micro Data 11/20/23 04:35 11/20/23 04:35 Labs: Laboratory Results - last 24 hr 11/19/23 13:20: Random Vancomycin 20.2 H 11/20/23 01:30: Random Vancomycin 20.2 H 11/20/23 04:35: WBC 13.4 H, RBC 3.15 L, Hgb 9.4 L, Hct 31.3 L, MCV 99.4 H, MCH 29.8, MCHC 30.0 L, RDW Std Deviation 54.5 H, RDW Coeff of Sina 14.8 H, Plt Count 195, MPV 9.5, Immature Gran % (Auto) 0.900, Neut % (Auto) 79.3 H, Lymph % (Auto) 8.9 L, [place] % (Auto) 9.0, Eos % (Auto) 1.2, Baso % (Auto) 0.7, Absolute Neuts (auto) 10.6 H, Absolute Lymphs (auto) 1.19, Nucleated RBC % 0, Sodium 138, Potassium 4.1, Chloride 102, Carbon Dioxide 26.0, Anion Gap 10, BUN 30 H, Creatinine 2.53 H, Estim Creat Clear Calc 18.53, Est GFR (MDRD) Af Amer 23 L, Est GFR (MDRD) Non-Af 19 L, BUN/Creatinine Ratio 11.9, Glucose 120 H, Calcium 9.3 11/20/23 09:55: PT 18.3 H, INR 1.5, APTT 49.9 H, Random Vancomycin 18.8 H Micro: Microbiology 11/15/23 09:30 Blood Culture (Wb) - Pic Blood Culture - Final No growth in 5 days. Rhythm Strip Rhythm Strip: Sinus Tach Rate: 126 Ectopy: None Imagaing Radiology Impression Renal Ultrasound 11/20/23 07:01 IMPRESSION: Atrophic left kidney. No hydronephrosis Electronically Signed: Rafael Coleman MD at 8:59 EST , Chest X-Ray 11/20/23 07:11 IMPRESSION: Slightly improved aeration in the right mid lung. Electronically Signed: Rafael Coleman MD at 8:14 EST , Capacity Legal Mill Hand Reflex Medical hold order details:: IF a medical hold is selected below, a suggested order for a MEDICAL HOLD will reflex upon signing the document. Next of kin: [place] law dictates a PRIORITY LIST for identifying legal decision-maker/legal next of kin in the following order (LNOK): 1st: The patient?s legal guardian, if any 2nd: The patient's spouse (if status is questionable, consult Risk Management) 3rd: The patient?s adult child(marky) (majority, if multiple children) 4th: The patient?s parents 5th: The patient?s adult siblings (majority, if multiple children siblings)
[2023-11-20] MEDS: Vancomycin IV 1,000 MG/200 ML BAG 200 MG IV (11:46)
[2023-11-20 17:31] LABS: Partial Thromboplast Time > 200.0 Seconds (24.1-36.2)
[2023-11-20] MEDS: Ensure Plus High Protein 120 ML LIQUID PO (17:46)
[2023-11-20] MEDS: Atorvastatin Calcium 20 MG Tablet PO (20:50)
[2023-11-20] MEDS: Pramipexole Di-HCl 0.5 MG Tablet 1.5 MG PO (20:50)
[2023-11-21] VITALS (20 sets, daily range): BP systolic 79–126; BP diastolic 49–82; PULSE 101–116; RESP 20–28; TEMP 36.6–36.7; O2SAT 87–92; BMI 47.0
[2023-11-21 02:29] LABS: Partial Thromboplast Time 206.4 Seconds (24.1-36.2)
[2023-11-21] MEDS: Norepinephrine 8 MG in 0.9% Normal Saline (250mL Bag) 242 ML 1.89999999999999991 MG CONT INF (04:34)
[2023-11-21] MEDS: Levothyroxine 175 MCG Tablet PO (04:50)
[2023-11-21 05:01] LABS: Absolute Lymphocyte Count 1.43 X10^3/uL (0.83-4.51); Absolute Neutrophil Count 11.2 X10^3/uL (2.0-7.7); Basophil# 0.12 X10^3/uL; Basophil% 0.8 % (0-1); Eosinophil# 0.11 X10^3/uL; Eosinophils% 0.8 % (0-5); Hematocrit 30.4 % (37-47); Hemoglobin 9.4 g/dL (12.0-15.0); Lymphocyte # 1.43 X10^3/ul (0.83-4.51); Lymphocyte % 9.8 % (19-41); Mean Corp Hgb Conc 30.9 g/dL (32-36); Mean Corpuscular Hgb 30.1 pg (27.0-32.0); Mean Corpuscular Volume 97.4 fL (81-99); Mean Platelet Vol. 9.6 fl (6.2-12.0); Monocyte# 1.42 X10^3/uL; Monocyte% 9.8 % (0-10); NRBC Flagged by Analyzer 0 % (0-5); Neutrophil # 11.22 X10^3/uL (2.7-7.7); Neutrophil % 77.3 % (47-70); Platelet Count 258 K/mm3 (150-450); RBC Distribution Width CV 14.8 % (11.6-14.6); RBC Distribution Width SD 53.4 fl (35.1-43.9); Red Blood Count 3.12 M/mm3 (4.2-5.4); White Blood Count 14.5 K/mm3 (4.4-11.0)
[2023-11-21 05:15] LABS: Anion Gap 10 (5-15); BUN 33 mg/dL (7-18); BUN/Creat Ratio 10.5 RATIO (10-20); Calcium,Total 9.3 mg/dL (8.5-10.1); Chloride 102 mmol/L (98-107); Creatinine, Serum 3.13 mg/dL (0.55-1.02); EST Glomerular Filtration Rate 15 mL/min (>60); Est Glom Filt Rate - Afr Amer 18 mL/min (>60); Estimated Creatinine Clearance 15.08 ml/min; Glucose 103 mg/dL (74-106); Potassium 4.1 mmol/L (3.5-5.1); Sodium Level 138 mmol/L (136-145)
--- NOTE | 2023-11-21 06:41 | PCM.PN.HOSP ---
Reason for Visit Reason for Visit: Diagnoses Sepsis, unspecified organism (11/13/23) Dehydration (11/13/23) Essential (primary) hypertension (11/13/23) Supraventricular tachycardia (11/13/23) Gastrointestinal hemorrhage, unspecified (11/13/23) Urinary tract infection, site not specified (11/13/23) Hypoxemia (11/13/23) Subjective Subjective Feels about the same as yesterday, frustrated because she is not improving quickly, still having cough Objective Data Objective Data Vital Signs: Vital Signs Temp Pulse Resp BP Pulse Ox O2 Del Method O2 Flow Rate 98 F 107 H 26 H 98/70 90 Airvo 60 11/21/23 05:00 11/21/23 06:00 11/21/23 06:00 11/21/23 06:00 11/21/23 06:00 11/21/23 06:00 11/21/23 06:00 FiO2 91 11/21/23 06:00 Oxygen Flow Rate (L/min) 60 Oxygen Delivery Method Airvo Weight: 108.6 kg Body Mass Index (BMI) 47.0 Intake & Output: Intake and Output for Last 24 Hours 11/19/23 11/20/23 11/21/23 23:59 23:59 23:59 Intake Total 1927.27 / 1931.07 1154.11 / 1156.01 146.88 / 146.88 Output Total 925 / 925 1950 / 1950 Balance 1002.27 / 1006.07 -795.89 / -793.99 146.88 / 146.88 Lab / Micro Data 11/21/23 04:45 11/21/23 04:45 Labs: Laboratory Results - last 24 hr 11/20/23 09:55: PT 18.3 H, INR 1.5, APTT 49.9 H, Random Vancomycin 18.8 H 11/20/23 16:30: APTT > 200.0 H* 11/21/23 01:35: APTT 206.4 H* 11/21/23 04:45: WBC 14.5 H, RBC 3.12 L, Hgb 9.4 L, Hct 30.4 L, MCV 97.4, MCH 30.1, MCHC 30.9 L, RDW Std Deviation 53.4 H, RDW Coeff of Sina 14.8 H, Plt Count 258, MPV 9.6, Immature Gran % (Auto) 1.500 H, Neut % (Auto) 77.3 H, Lymph % (Auto) 9.8 L, [place] % (Auto) 9.8, Eos % (Auto) 0.8, Baso % (Auto) 0.8, Absolute Neuts (auto) 11.2 H, Absolute Lymphs (auto) 1.43, Nucleated RBC % 0, Sodium 138, Potassium 4.1, Chloride 102, Carbon Dioxide 26.0, Anion Gap 10, BUN 33 H, Creatinine 3.13 H, Estim Creat Clear Calc 15.08, Est GFR (MDRD) Af Amer 18 L, Est GFR (MDRD) Non-Af 15 L, BUN/Creatinine Ratio 10.5, Glucose 103, Calcium 9.3 Micro: Microbiology 11/15/23 09:30 Blood Culture (Wb) - Pic Blood Culture - Final No growth in 5 days. 11/16/23 10:30 Urine, Random Legionella Antigen - Final 11/16/23 10:30 Urine, Random Streptococcus pneumoniae Antigen (M - Final 11/13/23 13:40 Urine, Catheterized Urine Culture - Final Culture exhibits no growth. 11/14/23 01:42 Stool Stool Occult Blood (DARREL) - Final Occult Blood Positive 11/13/23 13:22 Mucosa - Nasopharyngeal SARS-CoV-2, Influenza & RSV (PCR) - Final Radiography Diagnostic Testing: Radiology Impression Renal Ultrasound 11/20/23 07:01 IMPRESSION: Atrophic left kidney. No hydronephrosis Electronically Signed: Rafael Coleman MD at 8:59 EST , Chest X-Ray 11/20/23 07:11 IMPRESSION: Slightly improved aeration in the right mid lung. Electronically Signed: Rafael Coleman MD at 8:14 EST , Rhythm Strip Rhythm Strip: Sinus Tach Rate: 126 Ectopy: None Physical Exam Narrative General: Alert, oriented HEENT: Atraumatic, normocephalic Eyes: Anicteric, normal conjunctiva, extraocular movements grossly intact Neck: Supple Respiratory: Slight increased work of breathing with mild tachypnea, diminished throughout, moreso the bases Cardiovascular: Regular rate, did have a little bit of aching when pressing on chest GI: Soft, nontender, nondistended Extremities: Trace lower extremity edema Musculoskeletal: Moving all extremities Neuro: No overt focal neurological deficits Skin: No overt rashes appreciated Psych: Cooperative Assessment & Plan Assessment/Plan (1) Sepsis: (2) Hypoxemia: PLAN: Plan 83-year-old female history of CKD stage III, hypothyroidism, morbid obesity, VTE with factor V Leiden and history of IVC filter placement, CHAI on BiPAP, chronic hypoxic respiratory failure secondary to COPD and pulmonary fibrosis, UC who presented to [facility] ED 11/13/2023 with abdominal discomfort for several hours that was crampy in nature and possible coffee-ground emesis and recent UTI diagnosis and was admitted for concern for persistent UTI and possible GI bleed. Hosp complicated by acute on chronic hypoxic respiratory failure and sepsis as well as paroxysmal SVT and ASHANTI. # Acute hypoxic respiratory failure concern for pneumonia with history of chronic hypoxic respiratory failure on 5 L O2 secondary to COPD, pulmonary fibrosis, CHAI on BiPAP -Patient with worsening respiratory failure, increased from 5 L baseline O2 and morning of 11/19/2023 now is 92% on Airvo with respiratory rate of 26 and blood pressure 103/82 -Patient presently in ICU, CODE STATUS changed to DNR/DNI -Patient had limited 2D echo this admission with EF of 60% with no regional wall motion abnormalities normal LV size -Chest imaging concerning for pneumonia and patient on broad-spectrum antibiotics -Additionally patient started on IV Lasix twice daily -11/20: Alternating between BiPAP and airvo, on Zosyn and vancomycin, status post 2 doses of Lasix -11/21: Continues to vacillate between Airvo and BiPAP/AVAPS with suboptimal O2 sats, did not have significant response to Lasix yesterday, remains on Zosyn, chest x-ray yesterday reported slightly improved aeration in right midlung, 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 to have goals of care discussion with family # Sepsis likely secondary to underlying pneumonia -Patient with concern for pneumonia with MAP less than 65 and systolic blood pressure less than 90 requiring Levophed presently at 2 mcg -Patient additionally with organ dysfunction on top of her respiratory failure as indicated by ASHANTI -On broad-spectrum antibiotics -Cultures presently negative -Remains in ICU -Now to receive lasix and midodrine -11/20: Remains on midodrine, blood pressures borderline, on low doses of Levophed -11/21: Midodrine, low doses of Levophed, Zosyn, hemodynamic support # Narrow complex tachycardia suspect PSVT with hypotension -Suspected SVT/accelerated junctional rhythm -Patient seen by cardiology, required adenosine x 2 and was placed on Cardizem drip which was changed to amiodarone infusion -Pt requiring 2u levophed -11/20: Low doses of Levophed, amiodarone drip -11/21: As above #ASHANTI on CKD III unclear subtype -Possibly 2/2 critical illness -Continue hemodynamic support -11/20: Kidney function continues to worsen, suspect due to hypotension and critical illness, monitor urine output, nephrology consulted, retroperitoneal ultrasound with atrophic kidney but no hydronephrosis -11/21: Continues to worsen, monitor I's and O's, nephrology following, continue hemodynamic support #Recent acute complicated UTI -CT abdomen on admission- patient has bilateral nonobstructing renal stones, largest in left renal pelvis. Patient had been treated with IV rocephin. UA shows positive nitrite 1+ bacteria. Previous urine culture from 11/03/2023 is Klebsiella [id number] all sensitive but resistant to ampicillin Urine culture this admit shows no growth. #Concern for GIB -Hgb baseline 12, admis hgb 12/9 and dropped to 11, occult stool + for blood -GI c/s, pt supposed to have EGD but cancelled d/t hypotension -Continue PPI -11/20: Hemoglobin has been stable over the past several days, continue PPI -11/21: Hemoglobin has been stable, patient started on heparin drip given her hypercoagulable state #Hx VTE w/ factor V Leiden -hx of IVC filter placement -Eliquis on hold due to concern for GI bleed -11/21: Hemoglobin has been stable, patient started on heparin drip #Hypothyroidism -Continue Synthroid #Morbid obesity -BMI 45.6 kg/m? -Complicates treatment, prognosis, outcomes -Recommend weight loss and lifestyle changes # RLS -Continue home medications # Anxiety and depression -Home medications held due to prolonged QTc # History of UC -Patient on home sulfasalazine -Encouraged outpatient follow-up with GI #DVT ppx: Heparin drip Amarilys Burnett MD Capacity Legal [employer] Parts Sales Representative Reflex Medical hold order details:: IF a medical hold is selected below, a suggested order for a MEDICAL HOLD will reflex upon signing the document. Next of kin: [place] law dictates a PRIORITY LIST for identifying legal decision-maker/legal next of kin in the following order (LNOK): 1st: The patient?s legal guardian, if any 2nd: The patient's spouse (if status is questionable, consult Risk Management) 3rd: The patient?s adult child(marky) (majority, if multiple children) 4th: The patient?s parents 5th: The patient?s adult siblings (majority, if multiple children siblings) Charges/Coding Visit Charges Inpatient E&M: 55769 Subs Hosp L2
--- NOTE | 2023-11-21 07:32 | PCM.PN.INT ---
Assessment & Plan Assessment/Plan (1) Sepsis: (2) Hypoxemia: PLAN: Plan RECOMMENDATIONS: 1. Wean FiO2 to maintain oxygen saturations at or above 90%. 2. Continue AVAPS therapy with naps and nightly. 3. Continue weight-based heparin infusion. 4. Continue midodrine as ordered. 5. Continue amiodarone. 6. Continue antibiotics as ordered. 7. Continue PPI therapy as ordered. 8. Monitor blood counts and transfuse if hemoglobin drops below 7 g/dL. 9. Hospice care referral per request. IMPRESSIONS: 1. Acute hypoxemic respiratory failure Chest imaging demonstrated findings concerning for pneumonia. The patient remains on broad-spectrum antimicrobials. The patient reportedly utilizes only 2 L/min of supplemental oxygen on a nightly basis with her BiPAP. She is unaware of any pre-existing diagnosis of COPD, despite having Advair and albuterol on her outpatient MAR. The patient was previously on Eliquis, which remains on hold over concerns for occult blood positive stools. However, given her history of factor V Leiden, will continue weight-based heparin infusion today. Attempts to optimize her volume status have been unsuccessful and have led to worsening in her renal function. Nephrology is currently following to assist with medical management. In the meantime, continue heated high flow oxygen throughout the day and PAP therapy, at a minimum, on a nightly basis. Continue to wean FiO2 for saturations greater than 90%. The patient is currently requesting referral to hospice care services. Case management has been made aware. 2. Septic Shock The patient presented to the hospital with sepsis due to probable UTI versus pneumonia with acute sepsis related organ dysfunction as evidenced by persistent hypotension with a MAP less than 65 and/or systolic blood pressure less than 90 mmHg. Continue broad-spectrum antimicrobials as ordered. Continue scheduled midodrine for now. If the patient becomes hemodynamically unstable, Levophed can be restarted. 3. Recurrent SVT Cardiology is currently following. Continue amiodarone as ordered. 4. Anemia The patient's hemoglobin is currently stable. There are no overt signs of any blood loss. The patient will be at high risk for further respiratory decompensation if she were to be taken for endoscopic evaluation at the present time. Therefore, recommend continue current supportive care and continuing PPI therapy as ordered. Plan to initiate weight-based heparin infusion and monitor blood counts accordingly. 5. 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 Continue BiPAP therapy with naps and nightly. Nurys remains on hold on account of concerns for underlying GI bleeding. Recommend proceeding with family meeting to discuss goals of care. CODE status: Discussed CODE status at length including difference between FULL code, DNR-CCA and DNR-CC status. Following discussions about the differences in these status, patient requested a referral to hospice care services. She remains DNR CCA for the current time. If the patient elects hospice care services after their meeting, we will transition the patient to DNR comfort care and initiate comfort care measures. Advanced Care Planning Face to Face Time: 20 minutes This note was generated with [employer] dictation software. It may contain incorrect words, spelling, and punctuation that were not noted in checking the note before signing. Subjective Subjective The patient was seen and examined at the bedside this morning. Events from the last 24 hours have been reviewed. The patient remains on low-dose Levophed to maintain hemodynamic stability. She is currently on maximal support from an Airvo perspective with a flow rate of 60 L/min and FiO2 of 91%. The patient is documented to be overall net +8 L for the hospitalization. White count remains elevated at 14,000. Hemoglobin is stable. Creatinine has increased to 3.13. The patient has been refusing to utilize PAP therapy. I did meet personally with the patient and her daughter this morning at the bedside to discuss goals of care. I explained her current clinical status and answered questions. Following my discussion with the patient and her daughter, she is wishing to pursue a referral to hospice care services. Case management has been made aware of the request. If the patient ultimately decides to go with hospice care services, CODE STATUS will be updated and comfort care measures will be initiated. Objective Data Objective Data The patient's most recent lab work, culture data and imaging studies have all been personally reviewed. Surface echocardiogram completed in November 2023 demonstrated normal LV size and function with an ejection fraction of 60%. Vital Signs: Vital Signs Temp Pulse Resp BP Pulse Ox O2 Del Method O2 Flow Rate 98 F 112 H 20 H 99/65 90 Airvo 60 11/21/23 05:00 11/21/23 07:00 11/21/23 07:00 11/21/23 07:00 11/21/23 07:00 11/21/23 07:00 11/21/23 07:00 FiO2 91 11/21/23 07:00 Oxygen Flow Rate (L/min) 60 Oxygen Delivery Method Airvo Weight: 239 lb 6.752 oz Body Mass Index (BMI) 47.0 Intake & Output: Intake and Output for Last 24 Hours 11/19/23 11/20/23 11/21/23 23:59 23:59 23:59 Intake Total 1927.27 / 1931.07 1154.11 / 1156.01 148.78 / 148.78 Output Total 925 / 925 1950 / 1950 200 / 200 Balance 1002.27 / 1006.07 -795.89 / -793.99 -51.22 / -51.22 Lab / Micro Data Attestation: I reviewed the patient's lab results. 11/21/23 04:45 11/21/23 04:45 Labs: Laboratory Results - last 24 hr 11/20/23 09:55: PT 18.3 H, INR 1.5, APTT 49.9 H, Random Vancomycin 18.8 H 11/20/23 16:30: APTT > 200.0 H* 11/21/23 01:35: APTT 206.4 H* 11/21/23 04:45: WBC 14.5 H, RBC 3.12 L, Hgb 9.4 L, Hct 30.4 L, MCV 97.4, MCH 30.1, MCHC 30.9 L, RDW Std Deviation 53.4 H, RDW Coeff of Sina 14.8 H, Plt Count 258, MPV 9.6, Immature Gran % (Auto) 1.500 H, Neut % (Auto) 77.3 H, Lymph % (Auto) 9.8 L, [place] % (Auto) 9.8, Eos % (Auto) 0.8, Baso % (Auto) 0.8, Absolute Neuts (auto) 11.2 H, Absolute Lymphs (auto) 1.43, Nucleated RBC % 0, Sodium 138, Potassium 4.1, Chloride 102, Carbon Dioxide 26.0, Anion Gap 10, BUN 33 H, Creatinine 3.13 H, Estim Creat Clear Calc 15.08, Est GFR (MDRD) Af Amer 18 L, Est GFR (MDRD) Non-Af 15 L, BUN/Creatinine Ratio 10.5, Glucose 103, Calcium 9.3 Micro: Microbiology 11/15/23 09:30 Blood Culture (Wb) - Pic Blood Culture - Final No growth in 5 days. 11/16/23 10:30 Urine, Random Legionella Antigen - Final 11/16/23 10:30 Urine, Random Streptococcus pneumoniae Antigen (M - Final 11/13/23 13:40 Urine, Catheterized Urine Culture - Final Culture exhibits no growth. 11/14/23 01:42 Stool Stool Occult Blood (DARREL) - Final Occult Blood Positive 11/13/23 13:22 Mucosa - Nasopharyngeal SARS-CoV-2, Influenza & RSV (PCR) - Final ABG Data ABG results: ABG 11/18/23 04:04 Specimen Type ART Sample Site R Radial pH 7.44 Bicarbonate Actual 25.3 Total CO2 26 Base Excess 1 O2 Saturation 97 O2 % 100.0 ABG pCO2 37.1 ABG pO2 86 Theodore Test N/A Respiration Rate 14 O2 Delivery Device BiPAP Vent Mode Not entered Tidal Volume 400.0 POC PEEP 12 Radiography Diagnostic Testing: Radiology Impression Renal Ultrasound 11/20/23 07:01 IMPRESSION: Atrophic left kidney. No hydronephrosis Electronically Signed: Rafael Coleman MD at 8:59 EST , Chest X-Ray 11/20/23 07:11 IMPRESSION: Slightly improved aeration in the right mid lung. Electronically Signed: Rafael Coleman MD at 8:14 EST , Rhythm Strip Rhythm Strip: Sinus Tach Rate: 126 Ectopy: None Physical Exam Const alert and no apparent distress Constitutional Narrative: Morbidly obese. Currently tolerating heated high flow oxygen. General Appearance: cooperative HEENT normocephalic, head/scalp atraumatic and moist oral mucous membranes Eyes PERRL, EOMs intact bilaterally and conjunctivae normal Neck supple General: trachea midline Chest inspection of chest normal Resp Auscultation: diminished lung sounds; Negative for rales, rhonchi or wheezes Cardio S1 normal heart sound and S2 normal heart sound Rate: tachycardic GI normal to inspection, nondistended, normoactive bowel sounds Extremity no clubbing, cyanosis or edema Skin no rashes or lesions noted Neuro CN's II-XII intact bilaterally, moves all extremities and no focal motor deficits Psych cooperative and affect normal Charges/Coding Visit Charges Inpatient E&M: 89006 Subs Hosp L3 Procedures Hospitalists Procedures: 59319 Advncd Care Plan 30 Min
[2023-11-21] MEDS: sulfaSALAzine 500 MG Tablet 1000 MG PO (08:05)
[2023-11-21] MEDS: Midodrine HCl 5 MG Tablet 10 MG PO ×2 (08:05→11:34)
[2023-11-21] MEDS: Vibegron 75 MG TABLET PO (08:06)
[2023-11-21] MEDS: Amiodarone 200 MG Tablet PO (08:06)
--- NOTE | 2023-11-21 09:40 | CASEMGMT ---
MIKEY TAYLOR received call from power digger operator and updated that hospice referral to be placed after family meeting. MIKEY TAYLOR updated SW.
[2023-11-21] MEDS: Pantoprazole Sodium 40 MG in 0.9% Normal Saline (100mL MB+) 100 ML 330 MG IV (10:28)
[2023-11-21] MEDS: Menthol/Lanolin/Calamine/Znox 113 GM Tube 1 APPLIC TOPICAL (10:34)
[2023-11-21] MEDS: traMADol 50 MG Tablet PO (10:34)
[2023-11-21] MEDS: Miconazole Nitrate 43 GM Bottle 1 APPLIC TOPICAL (10:35)
--- NOTE | 2023-11-21 10:35 | PN.RENAL_ITS ---
Subjective Subjective Patient resting in bed. Daughter at bedside. Discussion with patient and daughter was held this morning, patient leaning towards hospice. Awaiting hospice consultation. Objective Data Objective Data Vital Signs: Vital Signs Temp Pulse Resp BP Pulse Ox O2 Del Method O2 Flow Rate 98.1 F 110 H 25 H 94/50 L 90 Airvo 60 11/21/23 08:08 11/21/23 10:00 11/21/23 10:00 11/21/23 10:00 11/21/23 10:00 11/21/23 10:00 11/21/23 07:00 FiO2 91 11/21/23 07:00 Oxygen Flow Rate (L/min) 60 Oxygen Delivery Method Airvo Weight: 108.6 kg Body Mass Index (BMI) 47.0 Intake & Output: Intake and Output for Last 24 Hours 11/19/23 11/20/23 11/21/23 23:59 23:59 23:59 Intake Total 1927.27 / 1931.07 1154.11 / 1156.01 150.93 / 150.93 Output Total 925 / 925 1950 / 1950 200 / 200 Balance 1002.27 / 1006.07 -795.89 / -793.99 -49.07 / -49.07 Lab / Micro Data 11/21/23 04:45 11/21/23 04:45 Labs: Laboratory Results - last 24 hr 11/20/23 09:55: Random Vancomycin 18.8 H 11/20/23 16:30: APTT > 200.0 H* 11/21/23 01:35: APTT 206.4 H* 11/21/23 04:45: WBC 14.5 H, RBC 3.12 L, Hgb 9.4 L, Hct 30.4 L, MCV 97.4, MCH 30.1, MCHC 30.9 L, RDW Std Deviation 53.4 H, RDW Coeff of Sina 14.8 H, Plt Count 258, MPV 9.6, Immature Gran % (Auto) 1.500 H, Neut % (Auto) 77.3 H, Lymph % (Auto) 9.8 L, [place] % (Auto) 9.8, Eos % (Auto) 0.8, Baso % (Auto) 0.8, Absolute Neuts (auto) 11.2 H, Absolute Lymphs (auto) 1.43, Nucleated RBC % 0, Sodium 138, Potassium 4.1, Chloride 102, Carbon Dioxide 26.0, Anion Gap 10, BUN 33 H, Creatinine 3.13 H, Estim Creat Clear Calc 15.08, Est GFR (MDRD) Af Amer 18 L, Est GFR (MDRD) Non-Af 15 L, BUN/Creatinine Ratio 10.5, Glucose 103, Calcium 9.3 Micro: Microbiology 11/15/23 09:30 Blood Culture (Wb) - Pic Blood Culture - Final No growth in 5 days. 11/16/23 10:30 Urine, Random Legionella Antigen - Final 11/16/23 10:30 Urine, Random Streptococcus pneumoniae Antigen (M - Final 11/13/23 13:40 Urine, Catheterized Urine Culture - Final Culture exhibits no growth. 11/14/23 01:42 Stool Stool Occult Blood (DARREL) - Final Occult Blood Positive 11/13/23 13:22 Mucosa - Nasopharyngeal SARS-CoV-2, Influenza & RSV (PCR) - Final Rhythm Strip Rhythm Strip: Sinus Tach Rate: 126 Ectopy: None Physical Exam Narrative Alert and orient x 3, no apparent distress Lung sounds diminished breath sounds posterior bases. Abdomen soft, hypoactive bowel sounds, nontender No pitting edema bilateral lower legs or feet Indwelling Kim with clear yellow urine in bag Assessment & Plan Assessment/Plan (1) ASHANTI (acute kidney injury): (2) Acute hypoxic respiratory failure: (3) Hypotension: (4) Sepsis: PLAN: Plan This is an 83-year-old female with past medical history significant for chronic hypoxic respiratory failure secondary to COPD complicated by pulmonary fibrosis, CHAI (on BiPAP therapy at home with oxygen, hypothyroidism, hyperlipidemia, hypertension, history of VTE (DVT, PE) with factor V [place] status post IVC filter placement, chronic thrombocytopenia, chronic anemia, anemia and depression who presented to the emergency room on November 13 with complaints of acute onset abdominal pain. Workup in the emergency room concerning for pneumonia, UTI, septic shock (on vancomycin and Zosyn) and GI bleed. Patient has been seen by GI EGD however on hold due to hypotension. Patient on Levophed drip. Nephrology consulted for ASHANTI. -Nonoliguric ASHANTI with normal baseline serum creatinine, Likely nonoliguric ASHANTI is prerenal and multifactorial from UTI/pneumonia/sepsis as well as poor renal perfusion from hypotension and SVT. Patient had been on furosemide 40 mg IV tw ice daily but this was stopped due to rising serum creatinine. reviewing past trends 07/30/2023 serum creatinine 0.85 mg/dL. On admission, November 13 serum creatinine was 1.11. Creatinine improved to 0.68 on November 17 however over the past few days serum creatinine has been slowly rising and today serum creatinine is 3.13 mg/dL. Patient is nonoliguric. Patient has been hypotensive during this hospitalization. She has also had runs of SVT requiring adenosine x 2, Cardizem drip and amiodarone infusion. Patient is currently on Levophed drip and midodrine TID. She is on amiodarone drip. Renal ultrasound did not show any hydronephrosis, right kidney 11.6 cm, left kidney atrophic, measuring 7.9 cm. - acute hypoxemic respiratory failure seems to be multifactorial from pneumonia, history of CHAI requiring BiPAP and supplemental oxygen at home. echo from November 14, 2023: Normal LV size, left ventricular systolic function normal, EF 60%, normal RV size and systolic function, pericardial effusion. Overall not much improvement in respiratory status, requiring Airvo/Bipap. -This morning I had discussion with patient and her daughter regarding current renal function, role of hemodialysis versus CRRT as she is likely not hemodynamically stable for intermittent hemodialysis should she want to be aggressive with her care. Patient is leaning towards hospice care and not pursuing any type of dialysis. Awaiting hospice care evaluation. No acute indication for WEBSP[employer] PROCESS SERVER DEVELOPER at this time. Capacity Legal Financial Business Analyst Reflex Medical hold order details:: IF a medical hold is selected below, a suggested order for a MEDICAL HOLD will reflex upon signing the document. Next of kin: [place] law dictates a PRIORITY LIST for identifying legal decision-maker/legal next of kin in the following order (LNOK): 1st: The patient?s legal guardian, if any 2nd: The patient's spouse (if status is questionable, consult Risk Management) 3rd: The patient?s adult child(marky) (majority, if multiple children) 4th: The patient?s parents 5th: The patient?s adult siblings (majority, if multiple children siblings)
[2023-11-21] MEDS: Piperacil/Tazobactam 3.375 GM in 0.9% Normal Saline (50mL MB+) 50 ML IV (10:40)
--- NOTE | 2023-11-21 10:47 | CASEMGMT ---
CAPO was informed patient is requesting Hospice. CAPO met with patient and her daughter Umm. CAPO introduced self and role at [facility]. Patient confirmed she would like to talk with Hospice. SW explained how the process works. Patient would be interested in the inpatient unit. Umm said she will stay if Hospice will be here soon. SW will make referral, check with Hospice, and get back to her. CAPO made a referral to Hospice. CAPO also called Gilda with Hospice and let her know patient's daughter is at [facility] right now. Gilda will send Alan over right now. CAPO notified patient, her daughter, and RN. CAPO also sent a message via [employer] to [facility] letting them know patient was talking with [facility] this am and may go to the inpatient unit. CAPO will keep them updated. Sunni Curiel GROUP THERAPY COUNSELOR MARIA ESTHER
[2023-11-21] MEDS: HEPARIN/D5w 25,000 UNITS 25,000 UNITS/250 ML IV.SOLN. 9 UNITS CONT INF (11:34)
--- NOTE | 2023-11-21 13:21 | CASEMGMT ---
SW was informed that patient signed with [facility] and they will be here to pick up attendant patient around [address]. [address] Sunni Curiel [employer] MARIA ESTHER
--- NOTE | 2023-11-21 13:30 | DS.PCM_ITS ---
Providers Date of Admission: 11/13/23 Date of Discharge: 11/21/23 Primary Care Physician: Dr. Jovani Mcconnell MD Consultations 11/14/23 02:13 Consult: Gastroenterology Routine Consulting Provider: [facility] Reason for Consult: positive stool for occult blood EMERGENT Consult: No Notified: Yes Date Notified: 11/14/23 Time Notified: 05:50 Method of Notification: Text 11/15/23 08:03 Consult: Pet Technologist / Pulmonary Medicine Routine Consulting Provider: Intensivists/Pulmonary Med Reason for Consult: Hypotension, concern of GI Bleed EMERGENT Consult: No Notified: Yes Date Notified: 11/15/23 Time Notified: 08:04 Method of Notification: Text 11/18/23 07:16 Consult: Cardiology Routine Consulting Provider: Maynor Roldan Reason for Consult: Recurrent SVT EMERGENT Consult: No Notified: No Date Notified: 11/18/23 Time Notified: 07:16 11/20/23 07:01 Consult: Nephrology Routine Consulting Provider: Magnolia Parker Reason for Consult: ASHANTI EMERGENT Consult: No Notified: Yes Date Notified: 11/20/23 Time Notified: 07:01 Method of Notification: Verbal Reason For Visit: UTI, ? GI BLEED, HYPERCALCEMIA Diagnosis Discharge Diagnosis (1) ASHANTI (acute kidney injury): Status: Acute Code(s): N17.9 - Acute kidney failure, unspecified (2) Acute hypoxic respiratory failure: Status: Acute Code(s): J96.01 - Acute respiratory failure with hypoxia (3) Hypotension: Status: Acute Code(s): I95.9 - Hypotension, unspecified (4) Sepsis: Status: Acute Code(s): A41.9 - Sepsis, unspecified organism Plan # Acute hypoxic respiratory failure concern for pneumonia with history of chronic hypoxic respiratory failure on 5 L O2 secondary to COPD, pulmonary fibrosis, CHAI on BiPAP # Sepsis likely secondary to underlying pneumonia # Narrow complex tachycardia suspect PSVT with hypotension #ASHANTI on CKD III unclear subtype #Recent acute complicated UTI #Concern for GIB #Hx VTE w/ factor V Leiden #Hypothyroidism #Morbid obesity # RLS # Anxiety and depression # History of UC Medications at Discharge Home Medications rosuvastatin 10 mg tablet 10 mg PO QHS CHOLESTEROL LOWERING 05/13/15 sulfasalazine 500 mg tablet 1,000 mg PO BID COLITIS 10/23/15 amitriptyline 100 mg tablet 100 mg PO QHS DEPRESSION 01/30/17 glucosamine HCl 500 mg-msm 83 mg-chondroitin 400 mg tablet 1 ea PO BID SUPPLEMENT 01/30/17 pramipexole 1.5 mg tablet 1.5 mg PO QHS restless legs 01/12/20 levothyroxine 175 mcg tablet 175 mcg PO DAILY 01/25/21 duloxetine 60 mg capsule,delayed release 60 mg PO Q OTHER DAY depression mirabegron 50 mg tablet,extended release 24 hr (Myrbetriq) 50 mg PO DAILY 07/27/22 metoprolol succinate 25 mg tablet,extended release 24 hr 25 mg PO DAILY htn 04/10/23 melatonin 3 mg capsule 3 mg PO HS PRN insomnia 09/12/23 tramadol 50 mg tablet 50 mg PO BID 09/12/23 acetaminophen 325 mg tablet 650 mg PO TID 11/13/23 albuterol sulfate 2.5 mg/3 mL (0.083 %) solution for nebulization 2.5 mg inhalation Q6H PRN shortness of breath 11/13/23 apixaban 5 mg tablet (Eliquis) 5 mg PO BID 11/13/23 ciprofloxacin HCl 500 mg tablet 500 mg PO BID 11/13/23 d-mannose 500 mg capsule (AZO D-Mannose) 2,000 mg PO QHS UTI PREVENTION 11/13/23 fluticasone 100 mcg-salmeterol 50 mcg/dose blistr powdr for inhalation (Advair Diskus) 1 inh inhalation BID 11/13/23 ondansetron HCl 4 mg tablet 4 mg PO Q6H PRN nausea 11/13/23 Hospital Course Procedures PICC line placement Summary of Care Provided Minutes Spent on Discharge: 32 Hospital Course: 83-year-old female history of CKD stage III, hypothyroidism, morbid obesity, VTE with factor V Leiden and history of IVC filter placement, CHAI on BiPAP, chronic hypoxic respiratory failure secondary to COPD and pulmonary fibrosis, UC who presented to [facility] ED 11/13/2023 with abdominal discomfort for several hours that was crampy in nature and possible coffee-ground emesis and recent UTI diagnosis and was admitted for concern for persistent UTI and possible GI bleed. Hosp complicated by acute on chronic hypoxic respiratory failure and sepsis as well as paroxysmal SVT and ASHANTI. Patient continued to be dependent 100 have on BiPAP without significant improvement despite multiple measures and also had worsening kidney function. Ultimately there is family meeting and patient and family opted for hospice. Patient transferred inpatient hospice unit Physical Exam Narrative General: Alert, oriented HEENT: Atraumatic, normocephalic Eyes: Anicteric, normal conjunctiva, extraocular movements grossly intact Neck: Supple Respiratory: Slight increased work of breathing with mild tachypnea, diminished throughout, moreso the bases Cardiovascular: Regular rate, did have a little bit of aching when pressing on chest GI: Soft, nontender, nondistended Extremities: Trace lower extremity edema Musculoskeletal: Moving all extremities Neuro: No overt focal neurological deficits Skin: No overt rashes appreciated Psych: Cooperative Weight / BMI Weight Weight: 108.6 kg Body Mass Index (BMI) 47.0 ABG / Lab / Microbiology Data 11/21/23 04:45 11/21/23 04:45 Laboratory: Laboratory Results - last 24 hr 11/20/23 16:30: APTT > 200.0 H* 11/21/23 01:35: APTT 206.4 H* 11/21/23 04:45: WBC 14.5 H, RBC 3.12 L, Hgb 9.4 L, Hct 30.4 L, MCV 97.4, MCH 30.1, MCHC 30.9 L, RDW Std Deviation 53.4 H, RDW Coeff of Sina 14.8 H, Plt Count 258, MPV 9.6, Immature Gran % (Auto) 1.500 H, Neut % (Auto) 77.3 H, Lymph % (Auto) 9.8 L, Addison % (Auto) 9.8, Eos % (Auto) 0.8, Baso % (Auto) 0.8, Absolute Neuts (auto) 11.2 H, Absolute Lymphs (auto) 1.43, Nucleated RBC % 0, Sodium 138, Potassium 4.1, Chloride 102, Carbon Dioxide 26.0, Anion Gap 10, BUN 33 H, Creatinine 3.13 H, Estim Creat Clear Calc 15.08, Est GFR (MDRD) Af Amer 18 L, Est GFR (MDRD) Non-Af 15 L, BUN/Creatinine Ratio 10.5, Glucose 103, Calcium 9.3 11/21/23 10:30: APTT 106.0 H* Microbiology: Microbiology 11/15/23 09:30 Blood Culture (Wb) - Pic Blood Culture - Final No growth in 5 days. 11/16/23 10:30 Urine, Random Legionella Antigen - Final 11/16/23 10:30 Urine, Random Streptococcus pneumoniae Antigen (M - Final 11/13/23 13:40 Urine, Catheterized Urine Culture - Final Culture exhibits no growth. 11/14/23 01:42 Stool Stool Occult Blood (DARREL) - Final Occult Blood Positive 11/13/23 13:22 Mucosa - Nasopharyngeal SARS-CoV-2, Influenza & RSV (PCR) - Final D/C Instructions Discharge Diet: No restrictions Meaningful Use Info Meaningful Use Diagnoses (Choose all that apply): None applicable Discharge Plan Admission Admit Date/Time: 11/13/23 16:50 Primary Reason for Your Visit: Dark emesis Attending Provider: Amarilys Burnett Primary Care Provider: Jovani Mcconnell Consulting Providers: Raine Pickard; Dwight Upton; Eamon Becerril; Eric Contreras; Teresa Rios; Rianna Ludwig; Raf Tavera; Frank Kilpatrick; Marcelo Dominguez; Duc Barraza; Magnolia Parker Instructions Patient Instructions: Hospice Care Dyspnea Discharge Orders/Prescriptions Prescriptions: No Action levothyroxine 175 mcg tablet 175 mcg PO DAILY duloxetine 60 mg capsule,delayed release(DR/EC) 60 mg PO Q OTHER DAY Myrbetriq 50 mg tablet extended release 24 hr 50 mg PO DAILY metoprolol succinate 25 mg tablet extended release 24 hr 25 mg PO DAILY Patient Comments: [place] PT TAKES IN AM tramadol 50 mg tablet 50 mg PO BID melatonin 3 mg capsule 3 mg PO HS PRN (Reason: insomnia) rosuvastatin 10 MG tablet 10 mg PO QHS sulfasalazine 500 MG tablet 1,000 mg PO BID glucosamine [id number] 1 EACH tablet 1 ea PO BID amitriptyline 100 MG tablet 100 mg PO QHS pramipexole 1.5 MG tablet 1.5 mg PO QHS AZO D-Mannose 500 mg capsule 2,000 mg PO QHS Eliquis 5 mg tablet 5 mg PO BID ciprofloxacin HCl 500 mg tablet 500 mg PO BID fluticasone propion-salmeterol [Advair Diskus] 100-50 mcg/dose blister with device 1 inh inhalation BID acetaminophen 325 mg tablet 650 mg PO TID albuterol sulfate 2.5 mg /3 mL (0.083 %) solution for nebulization 2.5 mg inhalation Q6H PRN (Reason: shortness of breath) ondansetron HCl 4 mg tablet 4 mg PO Q6H PRN (Reason: nausea) Referrals / Follow Up: Jovani Mcconnell MD [Primary Care Provider] - 3-5 Days Disposition Disposition (needs filled in before D/C Order can be placed): Hospice in Medical Facility Charges/Coding Visit Charges Inpatient E&M: 29541 Disch Hosp >30min
== END 2023-11-21 15:05 | disposition hospice, inpatient (51) | DRG 871 ==
LOC: ED 16:27 → PCU 18:42 → ICU 11-15 09:07
PROVIDERS: Anesthesiology; Internal Medicine; Internal Medicine Critical Care Medicine; Student in an Organized Health Care Education/Training Program; Admitting Provider Family Medicine; Emergency Provider Emergency Medicine; PCP Family Medicine; Visit Provider Internal Medicine
DX: A41.9 Sepsis, unspecified organism (principal); R65.21 Severe sepsis with septic shock; J96.21 Acute and chronic respiratory failure with hypoxia; J18.9 Pneumonia, unspecified organism; I31.39 Other pericardial effusion (noninflammatory); D68.2 Hereditary deficiency of other clotting factors; I47.10 Supraventricular tachycardia, unspecified; J44.0 Chronic obstructive pulmonary disease with (acute) lower respiratory infection; Z68.42 Body mass index [BMI] 45.0-49.9, adult; N17.9 Acute kidney failure, unspecified; T82.898A Other specified complication of vascular prosthetic devices, implants and grafts, initial encounter; K51.90 Ulcerative colitis, unspecified, without complications; N39.0 Urinary tract infection, site not specified; I27.21 Secondary pulmonary arterial hypertension; J84.10 Pulmonary fibrosis, unspecified; E11.22 Type 2 diabetes mellitus with diabetic chronic kidney disease; N18.30 Chronic kidney disease, stage 3 unspecified; E66.01 Morbid (severe) obesity due to excess calories; I12.9 Hypertensive chronic kidney disease with stage 1 through stage 4 chronic kidney disease, or unspecified chronic kidney disease; E03.9 Hypothyroidism, unspecified; F32.A Depression, unspecified; G25.81 Restless legs syndrome; G47.33 Obstructive sleep apnea (adult) (pediatric); E78.5 Hyperlipidemia, unspecified; E86.0 Dehydration; J30.9 Allergic rhinitis, unspecified; E87.6 Hypokalemia; R19.5 Other fecal abnormalities; H93.12 Tinnitus, left ear; K59.00 Constipation, unspecified; F41.9 Anxiety disorder, unspecified; Z11.52 Encounter for screening for COVID-19; Z79.891 Long term (current) use of opiate analgesic; Z79.51 Long term (current) use of inhaled steroids; Z79.01 Long term (current) use of anticoagulants; Z66 Do not resuscitate; Z87.891 Personal history of nicotine dependence; Z96.652 Presence of left artificial knee joint; Y71.1 Therapeutic (nonsurgical) and rehabilitative cardiovascular devices associated with adverse incidents; Y92.239 Unspecified place in hospital as the place of occurrence of the external cause
CPT/HCPCS: 36415; 36569; 36600; 71045; 71275; 74177; 76770; 80048; 80053; 80076; 80202; 81001; 82274; 82306; 82330; 82652; 82803; 83605; 83690; 83735; 83880; 83970; 84100; 84145; 84439; 84443; 84484; 85014; 85018; 85025; 85610; 85730; 86850; 86900; 86901; 87040; 87086; 87449; 87631; 87641; 92610; 93005; 93308; 94002; 94003; 94640; 94660; 94668; 94762; 97162; 97166; 99252; 99285; J7030; J7040; J7050; J7120; P9612; Q9957; Q9967; A4216; G0463; J0153; J1940; J2405; J3490